=== PATIENT | male | born 1940 | race Caucasian/White ===

== ENCOUNTER 2017-07-20 16:11 | Emergency (ER) | payer MEDICARE, OTHER ==
--- OUTSIDE RECORDS SUMMARY | 2017-07-20 16:19 | XMS REPORT ---
:1940 External Reference #:[id number] Author Organization [facility] Address [address] [address] Phone [phone] Care Team Providers Name Role Phone Matthias Welch III, MD Primary Care Physician Unavailable Payers Type Date Identification Numbers Payment Provider Subscriber Medicare Primary Effective: Policy Number: Medicare Jose Juan Choe 2006 [id number] PayID: [id number] [address] [place] [address] [facility] Part B Effective: Policy Number: [facility] Jose Juan Choe 2006 [id number] Group Number: [id number] [address] PayID: [id number] [place] [address] Problems Date Description Provider Status Onset: 05/24/2011 Aortic valve disorder Brandon Willingham M.D. Active Onset: 05/24/2011 Benign essential hypertension Brandon Willingham M.D. Active Onset: 05/24/2011 Coronary arteriosclerosis Brandon Willingham M.D. Active Onset: 05/24/2011 Transplantation of heart valve Brandon Willingham M.D. Active Onset: 05/24/2011 Pure hypercholesterolemia Brandon Willingham M.D. Active Onset: 12/16/2011 Impaired fasting glycaemia Matthias Welch M.D. Active Onset: 01/10/2014 Peripheral vascular disease Brandon Willingham M.D. Active Onset: 04/14/2014 Malignant essential hypertension Brandon Willingham M.D. Active Onset: 04/14/2014 Mixed hyperlipidemia Brandon Willingham M.D. Active Onset: 12/22/2015 Essential hypertension Brandon Willingham M.D. Active Family History Date Family Member(s) Problem(s) Comments : (age Father due to Motor 65 Years) Vehicle Accident : (age Mother due to Post hx of [place]- from 62 Years) 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 : (age Paternal Grandfather due to [place] 70 Years) Social History Type Date Description Comments Marital Status Occupation Retired machinist helper Cigarette Use Former Cigarette Smoker 1 smoked for 25 1/2 Packs Daily years-quit 27 years ago ETOH Use 05/24/2013 Occasionally consumes alcohol Smoking Patient is a former smoker Daily Caffeine Consumes on average 2 cups of regular coffee per day Exercise Type/Frequency Exercises regularly Allergies, Adverse Reactions, Alerts Date Description Reaction Status Severity Comments 12/31/2007 NKDA active 12/25/2010 Bee Sting active Medications Medication Date Status Form Strength Qnty SIG Indications Ordering Provider Epipen 02/19 Active Device 0.3mg/0.3 3unit use one Matthias E. /2009 ML s time as deisy Welch M.D. Aspir-81 Active Tablets 81mg 90tab 1 by mouth Qutayb / DR peterson every day Dale Willingham M.D. Amiodarone HCL Active Tablets 200mg 1 by mouth Unknown /0000 every day Atorvastatin Active Tablets 40mg 1 by mouth Unknown Calcium /0000 every day Carvedilol Active Tablets 3.125mg 1 by mouth Unknown /0000 twice a day Colace Active Capsules 100mg 1 tab by Unknown /0000 mouth q 12 hrs as needed Coumadin Active Tablets 3mg 1 tablet po Unknown /0000 every PM as directed for DVT,Pad,CAD Lasix Active Tablets 40mg 1 by mouth Unknown /0000 every day Lisinopril Active Tablets 2.5mg 1 by mouth Unknown /0000 every day at bedtime for HTN Hold for SBP <100 Lovenox Active Solution 100mg/ml inject 85mg Unknown /0000 subcutaneou sly every 12 hours for DVT Plavix 00 Active Tablets 75mg 1 by mouth Unknown /0000 every day Tramadol HCL Active Tablets 50mg 1-2 tablets Unknown /0000 every 6 hours as needed Lisinopril 06/10 Hx Tablets 20mg 90tab 1 by mouth I10 [facility]. Lisinopril 05/19 Hx Tablets 5mg 360ta 2 by mouth 401.0 bs twice a day [facility] , M.D. Lisinopril 04/14 Hx Tablets 10mg 1 by mouth yb every day . [facility] Hydrochlorothiazid 01/08 Hx Tablets 25mg 90tab 1 po qd Qutaybeh . [facility].D. Hydrochlorothiazid 01/08 Hx Tablets 25mg 90tab 1 po qd [facility]beh s . [facility] , M.D. Hydrochlorothiazid 01/08 Hx Tablets 25mg 90tab 1 by mouth Qutaybeh s every day . [facility] , .D. Hydrochlorothiazid 10/15 Hx Tablets 25mg 90tab 1 po qd Qutaybeh s . [facility] , M.DGladys Valtrex 04/23 Hx Tablets 1gm 21tab 1 po q8h 782.1 Matthias Alvares /2011 Vilma Blank M.D. 01/08 Hydrochlorothiazid 06/01 Hx Tablets 25mg 90tab 1 po qd Qutaybeh s . [facility] , MGladysDGladys Chlorhexidine 01/30 Hx Solution 0.12% 1mont 15 ml Matthias Gordon pedro swish/jert Rebekah, - po until M.D. 02/01 bottle gone. Norvasc 12/26 Hx Tablets 10mg 90tab 1 po qd Qutaybeh s S. - Shannanydah 12/15 , Mateo Atenolol 03/30 Hx Tablets 50mg 1/2 po bid Matthias EGladys Vilma Welch M.D. 01/15 Centrum Silver 03/22 Hx Tablets 1 po qd Qutayb S. - Shannanydah 01/30 , Mateo Norvasc 03/22 Hx Tablets 5mg 90tab 2 po qd Qutayb s S. - Shannanydah 12/26 , Mateo Ramipril 12/29 Hx Capsules 10mg 90cap 1 po qd Matthias EGladys Vilma Blank M.D. 03/22 Diovan 12/22 Hx Tablets 160mg 90tab 1 po qd Matthias EGladys Vilma Blank M.D. 12/29 Diovan 09/26 Hx Tablets 80mg 90tab 1 po qd Matthias Alvares Vilma Blank M.D. 12/22 Simvastatin 12/30 Hx Tablets 20mg 90tab 1 by mouth s every day S. Vilma Campbellestherrandal 07/17 , Mateo HCTZ 12/30 Hx 25mg. 90uni 1 po qd Matthias Alvares Vilma Hankins M.D. 03/30 Atenolol 12/30 Hx Tablets 50mg 90tab 1 po qd Mattihas Alvares Vilma Blank M.D. 03/30 Diovan 12/30 Hx Tablets 80mg 90tab 1 PO qd Matthias EGladys Vilma Blank M.D. 12/30 Naprosyn 12/30 Hx Tablets 500mg 180ta 1 po bid Matthias Alvares bs prn Vilma Welch M.D. 01/30 Lisinopril 12/30 Hx Tablets 20mg 90tab 1 po qd Matthias Alvares Vilma Blank M.D. 09/26 Vit E Hx 1000mg one po qd Unknown /0000 - 01/30 Ferrous Sulfate Hx Tablets 324mg 90tab 1 po bid Unknown /0000 s for 1month - post op 06/01 Lasix 0000 Hx Tablets 40mg 30tab 1 po qd for Unknown /0000 s 10 days - 01/08-01/18 Metoprolol 00 Hx Tablets 25mg 180ta 1 by mouth Qutaybeh Tartrate /0000 bs twice a day S. - Tarsha 07/17 , Mateo /2016 K Dur 00 Hx 10Meq 1 qd for 10 Unknown /0000 days - 02/01 Vitamin C 00 Hx 500 mg qd Unknown /0000 for 1 month - 02/01 Tylenol Arthritis Hx Tablets 650mg 100ta 1 po qd Unknown Pain /0000 ER bs - 12/15 Amlodipine Hx Tablets 10mg 90tab 1 by mouth Qutaybeh Besylate /0000 s every day S. - Tarsha 07/17 , Mateo /2016 Lisinopril Hx Tablets 5mg 90tab 1 by mouth Qutaybeh /0000 s every day S. - (eveinjuan) Tarsha 04/14 , Mateo /2013 Cilostazol Hx 100mg 1 tablet Unknown /0000 twice a day - 07/17 Immunizations CPT Code Status Date Vaccine Lot # [id number] Given 05/09/2016 Fluzone High Dose 13251 Given 02/23/2015 Pneumococcal Conjugate Vaccine 13 Valent For [id number] Intramuscular Use 27552 Given 12/16/2011 Tdap - Tetanus/Diptheria/Acellular Pertussis [id number] 52758 Given 12/31/2007 Pneumonia Vaccine [id number] 12247 Given 11/22/1999 Pneumovax (History By Patient) [id number] 67044 Given 04/05/1999 Td (History By Patient) Vital Signs Date Vital Result Comment 07/18/2017 Height 66.25 inches 5'6.25" Heart Rate 66 /min BP Systolic Sitting 128 mmHg Rue reg cuff BP Diastolic Sitting 70 mmHg Rue reg cuff Respiratory Rate 17 /min 06/03/2017 Height 66.25 inches 5'6.25" Weight 204.00 lb Heart Rate 66 /min BP Systolic Sitting 154 mmHg BP Diastolic Sitting 68 mmHg Body Temperature 97.1 F O2 % BldC Oximetry 96 % BMI (Body Mass Index) 32.7 kg/m2 06/02/2017 Height 66.5 inches 5'6.50" Weight 205.00 lb Heart Rate 74 /min BP Systolic Sitting 186 mmHg BP Diastolic Sitting 72 mmHg BMI (Body Mass Index) 32.6 kg/m2 Ejection Fraction 50%-55% Levi 03/19/2017 01/06/2017 Height 66.5 inches 5'6.50" Weight 195.75 lb w/shoes Heart Rate 76 /min BP Systolic Sitting 158 mmHg LA lg cuff BP Diastolic Sitting 82 mmHg LA lg cuff BMI (Body Mass Index) 31.1 kg/m2 Ejection Fraction 55-60% Echo 01/24/16 12/22/2015 Height 66.5 inches 5'6.50" Weight 200.75 lb with shoes Heart Rate 68 /min BP Systolic 150 mmHg LA lrg cuff BP Diastolic 60 mmHg LA lrg cuff BMI (Body Mass Index) 31.9 kg/m2 Ejection Fraction 55% - 60% echo 12/12/14 03/07/2015 Height 66.5 inches 5'6.50" Weight 197.00 lb w/shoes Heart Rate 64 /min BP Systolic Sitting 186 mmHg LA reg cuff BP Diastolic Sitting 80 mmHg LA reg cuff BMI (Body Mass Index) 31.3 kg/m2 Ejection Fraction 55-60 echo 12/12/14 02/23/2015 Height 66.5 inches 5'6.50" Weight 194.00 lb Heart Rate 62 /min BP Systolic Sitting 136 mmHg BP Diastolic Sitting 78 mmHg Body Temperature 97.6 F O2 % BldC Oximetry 98 % BMI (Body Mass Index) 30.8 kg/m2 12/14/2014 Height 66.5 inches 5'6.50" Weight 201.00 lb with clothes Heart Rate 62 /min BP Systolic Sitting 134 mmHg LA< reg BP Diastolic Sitting 86 mmHg LA< reg BMI (Body Mass Index) 32.0 kg/m2 Ejection Fraction 55%-60% 12/12/14 echo, report pending 06/01/2014 Height 66.5 inches 5'6.50" Weight 200.25 lb Heart Rate 64 /min BP Systolic Sitting 126 mmHg BP Diastolic Sitting 64 mmHg Body Temperature 97.3 F BMI (Body Mass Index) 31.8 kg/m2 05/19/2014 Height 66.5 inches 5'6.50" Weight 200.00 lb Heart Rate 64 /min BP Systolic Sitting 158 mmHg LA reg cuff BP Diastolic Sitting 74 mmHg LA reg cuff BP Systolic Recheck 164 mmHg Home unit BP Diastolic Recheck 68 mmHg Home unit BMI (Body Mass Index) 31.8 kg/m2 04/14/2014 Height 66.5 inches 5'6.50" Weight 199.50 lb w/shoes Heart Rate 58 /min BP Systolic Sitting 192 mmHg LA reg cuff BP Diastolic Sitting 76 mmHg LA reg cuff Respiratory Rate 14 /min BMI (Body Mass Index) 31.7 kg/m2 01/10/2014 Height 66.5 inches 5'6.50" Weight 199.25 lb with sneakers Heart Rate 72 /min BP Systolic Sitting 168 mmHg BP Diastolic Sitting 78 mmHg BMI (Body Mass Index) 31.7 kg/m2 05/24/2013 Height 66.5 inches 5'6.50" Weight 197.50 lb Heart Rate 68 /min BP Systolic Sitting 144 mmHg 166/80 repeat BP Diastolic Sitting 66 mmHg 166/80 repeat BMI (Body Mass Index) 31.4 kg/m2 01/08/2013 Height 66.5 inches 5'6.50" Weight 197.00 lb Heart Rate 55 /min BP Systolic 138 mmHg BP Diastolic 68 mmHg BMI (Body Mass Index) 31.3 kg/m2 04/23/2012 Height 66.5 inches 5'6.50" Weight 194.00 lb Heart Rate 64 /min BP Systolic Sitting 166 mmHg BP Diastolic Sitting 82 mmHg BMI (Body Mass Index) 30.8 kg/m2 02/18/2012 Height 66.5 inches 5'6.50" Weight 195.12 lb Heart Rate 60 /min BP Systolic Sitting 148 mmHg His: 156/70 BP Diastolic Sitting 82 mmHg His: 156/70 BMI (Body Mass Index) 31.0 kg/m2 01/16/2012 Height 66.5 inches 5'6.50" Weight 195.50 lb Heart Rate 68 /min BP Systolic Sitting 150 mmHg BP Diastolic Sitting 80 mmHg BMI (Body Mass Index) 31.1 kg/m2 01/01/2012 Height 66.5 inches 5'6.50" Weight 197.00 lb Heart Rate 60 /min BP Systolic Sitting 156 mmHg BP Diastolic Sitting 76 mmHg BMI (Body Mass Index) 31.3 kg/m2 12/16/2011 Height 66.5 inches 5'6.50" Weight 197.00 lb Heart Rate 64 /min BP Systolic Sitting 156 mmHg 140/66 in rt arm BP Diastolic Sitting 78 mmHg 140/66 in rt arm BMI (Body Mass Index) 31.3 kg/m2 05/24/2011 Height 68 inches 5'8" Weight 193.00 lb Heart Rate 51 /min BP Systolic Sitting 160 mmHg BP Diastolic Sitting 80 mmHg BMI (Body Mass Index) 29.3 kg/m2 12/25/2010 Weight 199.00 lb Heart Rate 68 /min BP Systolic Sitting 156 mmHg BP Diastolic Sitting 78 mmHg 06/01/2010 Weight 203.00 lb Heart Rate 60 /min BP Systolic Sitting 160 mmHg BP Diastolic Sitting 82 mmHg 05/02/2010 Weight 196.00 lb Heart Rate 72 /min BP Systolic Sitting 150 mmHg BP Diastolic Sitting 78 mmHg 02/01/2010 Height 67 inches 5'7" Weight 195.00 lb Heart Rate 88 /min BP Systolic Sitting 140 mmHg BP Diastolic Sitting 78 mmHg BMI (Body Mass Index) 30.5 kg/m2 01/15/2010 Height 67 inches 5'7" Weight 198.00 lb BP Systolic 180 mmHg BP Diastolic 80 mmHg BMI (Body Mass Index) 31.0 kg/m2 12/26/2009 Weight 205.00 lb Heart Rate 56 /min BP Systolic 180 mmHg BP Diastolic 76 mmHg Respiratory Rate 16 /min 03/30/2009 Height 67 inches 5'7" Heart Rate 60 /min BP Systolic Sitting 210 mmHg BP Diastolic Sitting 94 mmHg 03/22/2009 Height 67 inches 5'7" Weight 202.00 lb Heart Rate 55 /min BP Systolic Sitting 160 mmHg L BP Diastolic Sitting 80 mmHg L BMI (Body Mass Index) 31.6 kg/m2 02/14/2009 Weight 202.00 lb Heart Rate 68 /min BP Systolic Sitting 160 mmHg BP Diastolic Sitting 70 mmHg 12/22/2008 Height 67 inches 5'7" Weight 208.00 lb Heart Rate 60 /min BP Systolic Sitting 162 mmHg BP Diastolic Sitting 80 mmHg BMI (Body Mass Index) 32.6 kg/m2 12/31/2007 Height 67 inches 5'7" Weight 206.00 lb Heart Rate 56 /min BP Systolic Sitting 156 mmHg BP Diastolic Sitting 80 mmHg BMI (Body Mass Index) 32.3 kg/m2 Results Test Date Test Result H/L Range Note Laboratory test finding 06/03/2017 Hemoglobin A1c 6.3 5-7 Lipid Profile (Trig/Chol/HDL) 05/26/2017 Triglycerides 132 mg/dL 1 Cholesterol 174 mg/dL 2 HDL Cholesterol 41.1 mg/dL 3 LDL Cholesterol 107 mg/dL 4 Comp Metabolic Panel 05/26/2017 Sodium 134 mmol/L 133-145 Chloride 100 mmol/L Low 101-111 Co2 Carbon Dioxide 29 mmol/L 22-32 Glucose 120 mg/dL High 70-100 Blood Urea Nitrogen 23 mg/dL 6-24 Creatinine 1.32 mg/dL High 0.67-1.17 BUN/Creatinine Ratio 17.4 8-20 Calcium 9.9 mg/dL 8.6-10.3 Total Protein 7.2 g/dL 6.4-8.9 Albumin 4.1 g/dL 3.2-5.2 Globulin 3.1 g/dL 2-4 Albumin/Globulin Ratio 1.3 1-3 Total Bilirubin 0.50 mg/dL 0.2-1.0 Alkaline Phosphatase 55 U/L 34-104 Alt 12 U/L 7-52 Ast 15 U/L 13-39 Egfr Non- 52.5 >60 Egfr 67.5 >60 5 Potassium 5.3 mmol/L High 3.5-5.0 Anion Gap 5 mmol/L 2-11 Basic Metabolic Panel 02/04/2017 Sodium 133 mmol/L 133-145 Potassium 4.4 mmol/L 3.5-5.0 Chloride 101 mmol/L 101-111 Co2 Carbon Dioxide 25 mmol/L 22-32 Anion Gap 7 mmol/L 2-11 Glucose 85 mg/dL 70-100 Blood Urea Nitrogen 22 mg/dL 6-24 Creatinine 1.22 mg/dL High 0.67-1.17 BUN/Creatinine Ratio 18.0 8-20 Calcium 9.7 mg/dL 8.6-10.3 Egfr Non- 57.4 >60 Egfr 73.9 >60 6 Comp Metabolic Panel 02/27/2015 Sodium 132 mmol/L Low 133-145 7 Potassium 4.5 mmol/L 3.5-5.0 7 Chloride 97 mmol/L Low 101-111 7 Co2 Carbon Dioxide 27 mmol/L 22-32 7 Anion Gap 8 mmol/L 2-11 7 Glucose 110 mg/dL High 70-100 7 Blood Urea Nitrogen 17 mg/dL 6-24 7 Creatinine 1.13 mg/dL 0.67-1.17 7 BUN/Creatinine Ratio 15.0 8-20 7 Calcium 9.4 mg/dL 8.6-10.3 7 Total Protein 7.3 g/dL 6.4-8.9 7 Albumin 4.3 g/dL 3.2-5.2 7 Globulin 3.0 g/dL 2-4 7 Albumin/Globulin Ratio 1.4 1-3 7 Total Bilirubin 0.60 mg/dL 0.2-1.0 7 Alkaline Phosphatase 50 U/L 34-104 7 Alt 14 U/L 7-52 7 Ast 19 U/L 13-39 7 Egfr Non- 63.1 >60 7 Egfr 81.1 >60 7, 8 Lipid Profile (Trig/Chol/HDL) 02/27/2015 Triglycerides 139 mg/dL 7, 9 Cholesterol 165 mg/dL 7, 10 HDL Cholesterol 46.2 mg/dL 7, 11 LDL Cholesterol 91 mg/dL 7, 12 Laboratory test 02/27/2015 Hemoglobin A1c 6.0 % Less than 6.0 7, 13 finding (Glyco HGB) Laboratory test 02/17/2015 Surgical Pathology SEE RESULT 14 finding BELOW Basic Metabolic 06/07/2014 Sodium 133 mmol/L 133-145 Panel Potassium 4.6 mmol/L 3.5-5.0 15 Chloride 100 mmol/L Low 101-111 Co2 Carbon Dioxide 25 mmol/L 22-32 Anion Gap 8 mmol/L 2-11 Glucose 96 mg/dL 70-100 Blood Urea Nitrogen 24 mg/dL 6-24 Creatinine 1.15 mg/dL 0.67-1.17 BUN/Creatinine Ratio 20.9 High 8-20 Calcium 9.5 mg/dL 8.6-10.3 Egfr Non- 62.0 >60 Egfr 79.7 >60 16 Laboratory test finding 06/01/2014 Hemoglobin A1c 5.7 5-7 Basic Metabolic Panel 04/22/2014 Sodium 135 mmol/L 133-145 17 Potassium 4.3 mmol/L 3.7-5.6 17 Chloride 101 mmol/L 101-111 17 Co2 Carbon Dioxide 29 mmol/L 22-32 17 Anion Gap 5 mmol/L 2-11 17 Glucose 114 mg/dL High 70-100 17 Blood Urea Nitrogen 22 mg/dL 6-24 17 Creatinine 1.02 mg/dL 0.67-1.17 17 BUN/Creatinine Ratio 21.6 High 8-20 17 Calcium 9.4 mg/dL 8.6-10.3 17 Egfr Non- 71.2 >60 17 Egfr 91.6 >60 17, 18 Laboratory test finding 04/22/2014 Creatine Kinase 83 U/L 10-223 17, 19 Lipid Profile (Trig/Chol/HDL) 04/22/2014 Triglycerides 140 mg/dL 17, 20 Cholesterol 182 mg/dL 17, 21 HDL Cholesterol 52.1 mg/dL 17, 22 LDL Cholesterol 102 mg/dL 17, 23 Laboratory test finding 05/24/2013 Hemoglobin A1c 6.0 5-7 Laboratory test finding 02/15/2013 Blood Urea Nitrogen 21 mg/dL 6-24 Creatinine 02/15/2013 Creatinine 1.10 mg/dL 0.50-1.40 Egfr Non- 65.4 >60 Egfr 84.2 >60 24 CBC With Manual Diff 01/11/2013 White Blood Count 7.1 10^3/uL 4.8-10.8 Red Blood Count 4.57 10^6/uL 4.0-5.4 Hemoglobin 15.0 g/dL 14.0-18.0 Hematocrit 42 % 42-52 Mean Corpuscular Volume 92 fL 80-94 Mean Corpuscular Hemoglobin 33 pg High 27-31 Mean Corpuscular HGB Conc 36 g/dL 31-36 Red Cell Distribution Width 14 % 10.5-15 Platelet Count 188 10^3/uL 150-450 Mean Platelet Volume 8 um3 7.4-10.4 Abs Neutrophils 2.9 10^3/uL 1.5-7.7 Abs Lymphocytes 1.5 10^3/uL 1.0-4.8 Abs Monocytes 0.6 10^3/uL 0-0.8 Abs Eosinophils 2.0 10^3/uL High 0-0.6 Abs Basophils 0.1 10^3/uL 0-0.2 Abs Nucleated RBC 0 10^3/uL Neutrophil % 45 % 38-83 Band % 1 % 0-8 Lymphocytes % 26 % 25-47 Monocytes % 8 % 0-13 Eosinophils % 20 % High 0-6 RBC Morphology Normal Normal Lipid Profile (Trig/Chol/HDL) 01/11/2013 Triglycerides 122 mg/dL 40-200 Cholesterol 136 mg/dL Less than 200 HDL Cholesterol 42 mg/dL 40-60 25 Cholesterol/HDL Ratio 3.2 Average 1-4.44 LDL Cholesterol 69.6 Less Than 100 26 Basic Metabolic Panel 01/11/2013 Sodium 133 mmol/L 133-145 Potassium 4.2 mmol/L 3.5-5.0 Chloride 101 mmol/L 101-111 Co2 Carbon Dioxide 25.0 mmol/L 22-32 Anion Gap 7.0 mmol/L 2-11 Glucose 121 mg/dL High 70-100 Blood Urea Nitrogen 19 mg/dL 6-24 Creatinine 1.00 mg/dL 0.50-1.40 BUN/Creatinine Ratio 19.0 8-20 Calcium 9.3 mg/dL 8.1-9.9 Egfr Non- 73.2 >60 Egfr 94.2 >60 27 Liver Function Panel 01/11/2013 Total Protein 6.8 g/dL 6.2-8.1 Albumin 3.8 g/dL 3.2-5.2 Globulin 3.0 g/dL 2-4 Albumin/Globulin Ratio 1.3 1-3 Total Bilirubin 0.8 mg/dL 0.4-1.5 Direct Bilirubin 0.1 mg/dL 0.1-0.5 Indirect Bilirubin 0.7 mg/dL 0.3-1.0 Alkaline Phosphatase 58 U/L 30-110 Alt 19 U/L 14-54 Ast 22 U/L 12-42 Laboratory test finding 01/11/2013 Creatine Kinase 92 U/L 0-200 28 Pathologist Review (SEE NOTE) 29 Basic Metabolic Panel 02/03/2012 Sodium 135 mmol/L 135-145 Potassium 4.1 mmol/L 3.5-5.0 Chloride 99 mmol/L Low 101-111 Co2 (Carbon Dioxide) 29.0 mmol/L 22-32 Anion Gap 7.0 mmol/L 2-11 30 Glucose 100 mg/dL 70-100 BUN 17 mg/dL 6-24 Creatinine 1.1 mg/dL 0.50-1.40 One Over Creatinine 0.90 BUN/Creatinine Ratio 15.5 8-20 Calcium 9.6 mg/dL 8.1-9.9 eGFR Non- 65.6 > 60 eGFR 84.4 > 60 31 Laboratory test finding 12/02/2011 Hemoglobin A1c 6.6 % High Less Than 6.0 32 Comp Metabolic Panel 12/02/2011 Sodium 135 mmol/L 135-145 Potassium 3.6 mmol/L 3.5-5.0 Chloride 101 mmol/L 101-111 Co2 (Carbon Dioxide) 28.0 mmol/L 22-32 Anion Gap 6.0 mmol/L 2-11 33 Glucose 96 mg/dL 70-100 BUN 15 mg/dL 6-24 Creatinine 0.9 mg/dL 0.50-1.40 One Over Creatinine 1.11 BUN/Creatinine Ratio 16.7 8-20 Calcium 9.1 mg/dL 8.1-9.9 Total Protein 7.1 GM/DL 6.2-8.1 Albumin 4.1 GM/DL 3.2-5.2 Globulin 3.0 GM/DL 2-4 Albumin/Globulin Ratio 1.4 1-3 Bilirubin Total 0.9 mg/dL 0.4-1.5 34 Alkaline Phosphatase 57 U/L 39-117 Alt (SGPT) 32 U/L 17-63 Ast (Sgot) 34 U/L 12-42 eGFR Non- 82.9 > 60 eGFR 106.7 > 60 35 Lipid Profile (Trig/Chol/HDL) 12/02/2011 Triglyceride 90 mg/dL 40-200 Cholesterol 154 mg/dL Less Than 200 36 High Density Lipoprotein 48 mg/dL 40-60 37 Cholesterol/HDL Ratio 3.21 AVERAGE 1-4.97 Low Density Lipoprotein 88 mg/dL Less Than 100 38 CBC Auto Diff 04/23/2011 White Blood Count 6.4 CUMM 4.8-10.8 Red Cell Count 4.60 CUMM 4.6-6.2 Hemoglobin 15.4 g/dL 14.0-18.0 Hematocrit 43 % 42-52 Mean Corpuscular Volume 93 um3 80-94 Mean Corpuscular Hemoglob 33 pg High 27-31 Mean Corpuscular HGB Cone 36 g/dL 32-36 Redcell Distribution WDTH 13 % 10.5-15 Platelet Count 212 CUMM 150-450 Mean Platelet Volume 8.2 um3 7.4-10.4 Gran % 54.1 % 38-83 Lymph % 26.3 % 25-47 Mononuclear % 14.2 % High 1-9 Eosinophil % 4.9 % 0-6 Basophil % 0.5 % 0-2 Abs Lymphs 1.7 1.0-4.8 Abs Mononuclear 0.9 High 0-0.8 Absolute Neutrophil Count 3.5 1.5-7.7 Abs Eosinophils 0.3 0-0.6 Abs Basophils 0 0-0.2 39 Basic Metabolic Panel 04/23/2011 Sodium 135 mmol/L 135-145 Potassium 4.3 mmol/L 3.5-5.0 Chloride 98 mmol/L Low 101-111 Co2 (Carbon Dioxide) 31.0 mmol/L 22-32 Anion Gap 6.0 mmol/L 2-11 40 Glucose 101 mg/dL High 70-100 BUN 16 mg/dL 6-24 Creatinine 1.0 mg/dL 0.50-1.40 One Over Creatinine 1.00 BUN/Creatinine Ratio 16.0 8-20 Calcium 9.6 mg/dL 8.1-9.9 eGFR Non- 73.5 > 60 eGFR 94.5 > 60 41 CBC Auto Diff 01/16/2011 White Blood Count 5.7 CUMM 4.8-10.8 Red Cell Count 4.66 CUMM 4.6-6.2 Hemoglobin 15.3 g/dL 14.0-18.0 Hematocrit 44 % 42-52 Mean Corpuscular Volume 95 um3 High 80-94 Mean Corpuscular Hemoglob 33 pg High 27-31 Mean Corpuscular HGB Cone 35 g/dL 32-36 Redcell Distribution WDTH 13 % 10.5-15 Platelet Count 228 CUMM 150-450 Mean Platelet Volume 8.4 um3 7.4-10.4 Gran % 51.8 % 38-83 Lymph % 31.7 % 25-47 Mononuclear % 10.2 % High 1-9 Eosinophil % 5.2 % 0-6 Basophil % 1.1 % 0-2 Abs Lymphs 1.8 1.0-4.8 Abs Mononuclear 0.6 0-0.8 Absolute Neutrophil Count 2.9 1.5-7.7 Abs Eosinophils 0.3 0-0.6 Abs Basophils 0.1 0-0.2 Basic Metabolic Panel 01/16/2011 Sodium 139 mmol/L 135-145 Potassium 3.8 mmol/L 3.5-5.0 Chloride 101 mmol/L 101-111 Co2 (Carbon Dioxide) 30.0 mmol/L 22-32 Anion Gap 8.0 mmol/L 2-11 42 Glucose 150 mg/dL High 70-100 BUN 13 mg/dL 6-24 Creatinine 1.00 mg/dL 0.50-1.40 One Over Creatinine 1.00 BUN/Creatinine Ratio 13.0 8-20 Calcium 10.0 mg/dL High 8.1-9.9 eGFR Non- 73.7 > 60 eGFR 94.7 > 60 43 CBC With Electronic Diff 05/10/2010 White Blood Count 6.2 CUMM 4.8-10.8 44 Red Cell Count 4.84 CUMM 4.6-6.2 44 Hemoglobin 15.0 g/dL 14.0-18.0 44 Hematocrit 43 % 42-52 44 Mean Corpuscular Volume 88 um3 80-94 44 Mean Corpuscular Hemoglob 31 pg 27-31 44 Mean Corpuscular HGB Cone 35 g/dL 32-36 44 Redcell Distribution WDTH 15 % 10.5-15 44 Platelet Count 240 CUMM 150-450 44 Mean Platelet Volume 7.4 um3 7.4-10.4 44 Gran % 57.4 % 38-83 44 Lymph % 28.9 % 25-47 44 Mononuclear % 8.8 % 1-9 44 Eosinophil % 4.1 % 0-6 44 Basophil % 0.8 % 0-2 44 Abs Lymphs 1.8 1.0-4.8 44 Abs Mononuclear 0.5 0-0.8 44 Absolute Neutrophil Count 3.6 1.5-7.7 44 Abs Eosinophils 0.3 0-0.6 44 Abs Basophils 0 0-0.2 44 Basic Metabolic Panel 05/10/2010 Sodium 138 mmol/L 135-145 44 Potassium 4.4 mmol/L 3.5-5.0 44 Chloride 102 mmol/L 101-111 44 Co2 (Carbon Dioxide) 27.0 mmol/L 22-32 44 Anion Gap 9.0 mmol/L 2-11 44, 45 Glucose 121 mg/dL High 70-100 44, 46 BUN 10 mg/dL 6-24 44 Creatinine 1.00 mg/dL 0.50-1.40 44 One Over Creatinine 1.00 44 BUN/Creatinine Ratio 10.0 8-20 44 Calcium 9.6 mg/dL 8.1-9.9 44 eGFR Non- 78.3 > 60 44 eGFR 94.7 > 60 44, 47 CBC With Electronic Diff 01/19/2010 White Blood Count 10.6 CUMM 4.8-10.8 Red Cell Count 3.81 CUMM Low 4.6-6.2 Hemoglobin 11.6 g/dL Low 14.0-18.0 Hematocrit 36 % Low 42-52 Mean Corpuscular Volume 94 um3 80-94 Mean Corpuscular Hemoglob 30 pg 27-31 Mean Corpuscular HGB Cone 32 g/dL 32-36 Redcell Distribution WDTH 13 % 10.5-15 Platelet Count 526 CUMM High 150-450 Mean Platelet Volume 6.5 um3 Low 7.4-10.4 Gran % 70.0 % 38-83 Lymph % 18.7 % Low 25-47 Mononuclear % 8.5 % 1-9 Eosinophil % 2.3 % 0-6 Basophil % 0.5 % 0-2 Abs Lymphs 2.0 1.0-4.8 Abs Mononuclear 0.9 High 0-0.8 Absolute Neutrophil Count 7.4 1.5-7.7 Abs Eosinophils 0.2 0-0.6 Abs Basophils 0.1 0-0.[address] Welch's Lab Panel 01/19/2010 TSH 2.13 MIU/ML 0.34-5.60 Comp Metabolic Panel 01/19/2010 Sodium 135 mmol/L 135-145 Potassium 5.4 mmol/L High 3.5-5.0 Chloride 100 mmol/L Low 101-111 Co2 (Carbon Dioxide) 28.0 mmol/L 22-32 Anion Gap 7.0 mmol/L 2-11 49 Glucose 107 mg/dL High 70-100 50 BUN 18 mg/dL 6-24 Creatinine 1.00 mg/dL 0.50-1.40 One Over Creatinine 1.00 BUN/Creatinine Ratio 18.0 8-20 Calcium 9.2 mg/dL 8.1-9.9 51 Total Protein 6.7 GM/DL 6.2-8.1 Albumin 3.3 GM/DL 3.2-5.2 Globulin 3.4 GM/DL 2-4 Albumin/Globulin Ratio 1.0 1-3 Bilirubin Total 0.6 mg/dL 0.4-1.5 52 Alkaline Phosphatase 88 U/L 39-117 Alt (SGPT) 54 U/L 17-63 Ast (Sgot) 38 U/L 12-42 eGFR Non- 78.3 > 60 eGFR 94.7 > 60 53 Lipid Profile (Trig/Chol/HDL) 01/19/2010 Triglyceride 139 mg/dL 40-200 Cholesterol 141 mg/dL Less Than 200 54 High Density Lipoprotein 38 mg/dL Low 40-60 55 Cholesterol/HDL Ratio 3.71 AVERAGE 1-4.97 Low Density Lipoprotein 75 mg/dL Less Than 100 56 Laboratory test finding 12/13/2008 TSH 1.75 MIU/ML 0.34-5.60 PSA,Diagnostic 0.97 NG/ML 0-4 57 Lipid Profile (Trig/Chol/HDL) 12/13/2008 Triglyceride 95 mg/dL 40-200 Cholesterol 164 mg/dL Less Than 200 58 High Density Lipoprotein 44 mg/dL 40-60 59 Cholesterol/HDL Ratio 3.73 AVERAGE 1-4.97 Low Density Lipoprotein 101 mg/dL High Less Than 100 60 Comp Metabolic Panel 12/13/2008 Sodium 137 mmol/L 135-145 Potassium 5.3 mmol/L High 3.5-5.0 Chloride 103 mmol/L 101-111 Co2 (Carbon Dioxide) 29.0 mmol/L 22-32 Anion Gap 5.0 mmol/L 2-11 61 Glucose 105 mg/dL High 70-100 62 BUN 19 mg/dL 6-24 Creatinine 1.20 mg/dL 0.50-1.40 One Over Creatinine 0.80 BUN/Creatinine Ratio 15.8 8-20 Calcium 9.5 mg/dL 8.1-9.9 63 Total Protein 6.7 GM/DL 6.2-8.1 Albumin 4.0 GM/DL 3.2-5.2 Globulin 2.7 GM/DL 2-4 Albumin/Globulin Ratio 1.5 1-3 Bilirubin Total 0.8 mg/dL 0.4-1.5 64 Alkaline Phosphatase 62 U/L 39-117 Alt (SGPT) 29 U/L 17-63 Ast (Sgot) 31 U/L 12-42 CBC With Electronic Diff 12/13/2008 White Blood Count 5.6 CUMM 4.8-10.8 Red Cell Count 4.21 CUMM Low 4.6-6.2 Hemoglobin 13.9 g/dL Low 14.0-18.0 Hematocrit 39 % Low 42-52 Mean Corpuscular Volume 93 um3 80-94 Mean Corpuscular Hemoglob 33 pg High 27-31 Mean Corpuscular HGB Cone 36 g/dL 32-36 Redcell Distribution WDTH 13 % 10.5-15 Platelet Count 241 CUMM 150-450 Mean Platelet Volume 7.5 um3 7.4-10.4 Gran % 58.9 % 38-83 Lymph % 24.5 % Low 25-47 Mononuclear % 12.8 % High 1-9 Eosinophil % 3.2 % 0-6 Basophil % 0.6 % 0-2 Abs Lymphs 1.4 1.0-4.8 Abs Mononuclear 0.7 0-0.8 Absolute Neutrophil Count 3.3 1.5-7.7 Abs Eosinophils 0.2 0-0.6 Abs Basophils 0 0-0.2 Lipid Profile (Trig/Chol/HDL) 02/02/2008 Triglyceride 185 mg/dL 40-200 Cholesterol 172 mg/dL Less Than 200 65 High Density Lipoprotein 38 mg/dL Low 40-60 66 Cholesterol/HDL Ratio 4.53 AVERAGE 1-4.97 Low Density Lipoprotein 97 mg/dL Less Than 100 67 Laboratory test finding 02/02/2008 Alt (SGPT) 22 U/L 17-63 Ast (Sgot) 23 U/L 12-42 1 Desirable: <150 Borderline High: 150-199 High: 200-499 Very High: >500 2 Desirable: <200 Borderline High: 200-239 High: >239 3 Low: <40 Desirable: 40-60 High: >60 4 Desirable: <100 Near Optimal: 100-129 Borderline High: 130-159 High: 160-189 Very High: >189 5 Because ethnic data is not always readily available, this report includes an eGFR for both -Americans and non- Americans. The National Kidney Disease Education Program (NKDEP) does not endorse the use of the MDRD equation for patients that are not between the ages of 18 and 70, are , have extremes of body size, muscle mass, or nutritional status, or are non- or non-. According to the National Kidney Foundation, irrespective of diagnosis, the stage of the disease is based on the level of kidney function: Stage Description GFR(mL/min/1.73 m(2)) 1 Kidney damage with normal or decreased GFR 90 2 Kidney damage with mild decrease in GFR 60-89 3 Moderate decrease in GFR 30-59 4 Severe decrease in GFR 15-29 5 Kidney failure <15 (or dialysis) 6 Because ethnic data is not always readily available, this report includes an eGFR for both -Americans and non- Americans. The National Kidney Disease Education Program (NKDEP) does not endorse the use of the MDRD equation for patients that are not between the ages of 18 and 70, are , have extremes of body size, muscle mass, or nutritional status, or are non- or non-. According to the National Kidney Foundation, irrespective of diagnosis, the stage of the disease is based on the level of kidney function: Stage Description GFR(mL/min/1.73 m(2)) 1 Kidney damage with normal or decreased GFR 90 2 Kidney damage with mild decrease in GFR 60-89 3 Moderate decrease in GFR 30-59 4 Severe decrease in GFR 15-29 5 Kidney failure <15 (or dialysis) 7 FASTING 10 HOUR 8 Because ethnic data is not always readily available, this report includes an eGFR for both -Americans and non- Americans. The National Kidney Disease Education Program (NKDEP) does not endorse the use of the MDRD equation for patients that are not between the ages of 18 and 70, are , have extremes of body size, muscle mass, or nutritional status, or are non- or non-. According to the National Kidney Foundation, irrespective of diagnosis, the stage of the disease is based on the level of kidney function: Stage Description GFR(mL/min/1.73 m(2)) 1 Kidney damage with normal or decreased GFR 90 2 Kidney damage with mild decrease in GFR 60-89 3 Moderate decrease in GFR 30-59 4 Severe decrease in GFR 15-29 5 Kidney failure <15 (or dialysis) 9 Desirable <150 Borderline high 150-199 High 200-499 Very High >500 10 Desirable <200 Borderline high 200-239 High >239 11 Low <40 Desirable: 40-60 High: >60 12 Desirable: <100 mg/dL Near Optimal: 100-129 mg/dL Borderline High: 130-159 mg/dL High: 160-189 mg/dL Very High: >189 mg/dL 13 Therapeutic target for the treatment of diabetes Mellitus patients is <7% HBA1C, and in selective patients <6.0%.Please refer to [place] [employer] Diabetic care guidelines for further information. 14 SEE RESULT BELOW Name: JOSE JUAN CHOE : [address]: Jez Damon MD Acct: [id number] Unit: [id number] AGE: 75 Location: ENDO Re02/17/15 SEX: M Status: REG REF SPEC: [id number] LISET: 02/17/15-[address] [facility] [address]: Jez Damon MD REQ: [id number] RECD: 02/17/15-8507 STATUS: PATTY ANTONIO DR: Matthias Welch III, MD _ ORDERED: LEVEL IV FINAL DIAGNOSIS Colon, cecum, biopsy: -- Tubular adenoma. -- No high grade dysplasia or malignancy. CLINICAL HISTORY No additional information provided POST-OPERATIVE DIAGNOSIS Screening colonoscopy to terminal ileum - cecal polyp snare, tics; 5 years GROSS DESCRIPTION The specimen is received in formalin labeled, Cecal Polyp, and consists of a 0.6 x 0.4 x 0.3 cm apodaca-pink polypoid soft tissue fragment, which is inked, bisected and submitted entirely in one cassette. Signed (signature on file) Paula Lee MD [id number] END OF REPORT * ML=Testing performed at Main Lab DEPARTMENT OF PATHOLOGY, [address] [place] [address] Humberto Lunsford M.D. Director [facility] # [id number] 15 Potassium reference range changed effective 05/29/14 16 Because ethnic data is not always readily available, this report includes an eGFR for both -Americans and non- Americans. The National Kidney Disease Education Program (NKDEP) does not endorse the use of the MDRD equation for patients that are not between the ages of 18 and 70, are , have extremes of body size, muscle mass, or nutritional status, or are non- or non-. According to the National Kidney Foundation, irrespective of diagnosis, the stage of the disease is based on the level of kidney function: Stage Description GFR(mL/min/1.73 m(2)) 1 Kidney damage with normal or decreased GFR 90 2 Kidney damage with mild decrease in GFR 60-89 3 Moderate decrease in GFR 30-59 4 Severe decrease in GFR 15-29 5 Kidney failure <15 (or dialysis) 17 PT IS FASTING 18 Because ethnic data is not always readily available, this report includes an eGFR for both -Americans and non- Americans. The National Kidney Disease Education Program (NKDEP) does not endorse the use of the MDRD equation for patients that are not between the ages of 18 and 70, are , have extremes of body size, muscle mass, or nutritional status, or are non- or non-. According to the National Kidney Foundation, irrespective of diagnosis, the stage of the disease is based on the level of kidney function: Stage Description GFR(mL/min/1.73 m(2)) 1 Kidney damage with normal or decreased GFR 90 2 Kidney damage with mild decrease in GFR 60-89 3 Moderate decrease in GFR 30-59 4 Severe decrease in GFR 15-29 5 Kidney failure <15 (or dialysis) 19 PT IS FASTING 20 Desirable <150 Borderline high 150-199 High 200-499 Very High >500 21 Desirable <200 Borderline high 200-239 High >239 22 Low <40 Desirable: 40-60 High: >60 23 Desirable <100 Near Optimal 100-129 Borderline high 130-159 High 160-189 Very High >189 24 Because ethnic data is not always readily available, this report includes an eGFR for both -Americans and non- Americans. The National Kidney Disease Education Program (NKDEP) does not endorse the use of the MDRD equation for patients that are not between the ages of 18 and 70, are , have extremes of body size, muscle mass, or nutritional status, or are non- or non-. According to the National Kidney Foundation, irrespective of diagnosis, the stage of the disease is based on the level of kidney function: Stage Description GFR(mL/min/1.73 m(2)) 1 Kidney damage with normal or decreased GFR 90 2 Kidney damage with mild decrease in GFR 60-89 3 Moderate decrease in GFR 30-59 4 Severe decrease in GFR 15-29 5 Kidney failure <15 (or dialysis) 25 HDL Interpretation: Undesirable: High Risk: Less than 40 mg/dL Desirable: Low Risk: Greater than 60 mg/dL 26 LDL Interpretation: Low Risk Optimal Level: LDL Less than 100 mg/dL Near or Above Optimal: LDL 100-129 mg/dL Borderline High Risk: LDL 130-159 mg/dL High Risk: LDL 160-189 mg/dL Very High Risk: LDL Greater than 189 mg/dL 27 Because ethnic data is not always readily available, this report includes an eGFR for both -Americans and non- Americans. The National Kidney Disease Education Program (NKDEP) does not endorse the use of the MDRD equation for patients that are not between the ages of 18 and 70, are , have extremes of body size, muscle mass, or nutritional status, or are non- or non-. According to the National Kidney Foundation, irrespective of diagnosis, the stage of the disease is based on the level of kidney function: Stage Description GFR(mL/min/1.73 m(2)) 1 Kidney damage with normal or decreased GFR 90 2 Kidney damage with mild decrease in GFR 60-89 3 Moderate decrease in GFR 30-59 4 Severe decrease in GFR 15-29 5 Kidney failure <15 (or dialysis) 28 FASTING Lab added 29 CBC and smear reviewed. Eosinophilia confirmed. May be allergy, drug or parasite related. REVIEWED BY HUMBERTO LUNSFORD MD 30 Anion gap measurement may be of limited value in the presence of any alkalosis, especially in a combined acid base disorder. . 31 Because ethnic data is not always readily available, this report includes an eGFR for both -Americans and non- Americans. The National Kidney Disease Education Program (NKDEP) does not endorse the use of the MDRD equation for patients that are not between the ages of 18 and 70, are , have extremes of body size, muscle mass, or nutritional status, or are non- or non-. According to the National Kidney Foundation, irrespective of diagnosis, the stage of the disease is based on the level of kidney function: Stage Description GFR(mL/min/1.73 m(2)) 1 Kidney damage with normal or decreased GFR 90 2 Kidney damage with mild decrease in GFR 60-89 3 Moderate decrease in GFR 30-59 4 Severe decrease in GFR 15-29 5 Kidney failure <15 (or dialysis) 32 THERAPEUTIC TARGET FOR THE TREATMENT OF DIABETES MELLITUS PATIENTS IS <7% HBA1C, AND IN SELECTIVE PATIENTS <6.0%. PLEASE REFER TO [place] [employer] DIABETIC CARE GUIDELINES FOR FURTHER INFORMATION. 33 Anion gap measurement may be of limited value in the presence of any alkalosis, especially in a combined acid base disorder. . 34 A metabolite of Naproxen, O-desmethylnaproxen, has been shown to interfere with the Jendrassik-Aleksey method for measuring total bilirubin. Samples from patients who have taken Naproxen have shown spurious elevation in total bilirubin levels. 35 Because ethnic data is not always readily available, this report includes an eGFR for both -Americans and non- Americans. The National Kidney Disease Education Program (NKDEP) does not endorse the use of the MDRD equation for patients that are not between the ages of 18 and 70, are , have extremes of body size, muscle mass, or nutritional status, or are non- or non-. According to the National Kidney Foundation, irrespective of diagnosis, the stage of the disease is based on the level of kidney function: Stage Description GFR(mL/min/1.73 m(2)) 1 Kidney damage with normal or decreased GFR 90 2 Kidney damage with mild decrease in GFR 60-89 3 Moderate decrease in GFR 30-59 4 Severe decrease in GFR 15-29 5 Kidney failure <15 (or dialysis) 36 CHOLESTEROL INTERPRETATION: Desirable: Less than 200 MG/DL Borderline-High Risk: 200-239 MG/DL High-Risk: 240 MG/DL and over 37 HDL INTERPRETATION: Undesirable: High Risk: Less than 40 MG/DL Desirable: Low Risk: Greater than 60 MG/DL 38 LDL INTERPRETATION: Low Risk Optimal Level: LDL Less than 100 MG/DL Near or Above Optimal: LDL 100-129 MG/DL Borderline High Risk: LDL 130-159 MG/DL High Risk: LDL 160-189 MG/DL Very High Risk: LDL Greater than 189 MG/DL 39 H H Check Failed 40 Anion gap measurement may be of limited value in the presence of any alkalosis, especially in a combined acid base disorder. . 41 Because ethnic data is not always readily available, this report includes an eGFR for both -Americans and non- Americans. The National Kidney Disease Education Program (NKDEP) does not endorse the use of the MDRD equation for patients that are not between the ages of 18 and 70, are , have extremes of body size, muscle mass, or nutritional status, or are non- or non-. According to the National Kidney Foundation, irrespective of diagnosis, the stage of the disease is based on the level of kidney function: Stage Description GFR(mL/min/1.73 m(2)) 1 Kidney damage with normal or decreased GFR 90 2 Kidney damage with mild decrease in GFR 60-89 3 Moderate decrease in GFR 30-59 4 Severe decrease in GFR 15-29 5 Kidney failure <15 (or dialysis) 42 Anion gap measurement may be of limited value in the presence of any alkalosis, especially in a combined acid base disorder. . 43 Because ethnic data is not always readily available, this report includes an eGFR for both -Americans and non- Americans. The National Kidney Disease Education Program (NKDEP) does not endorse the use of the MDRD equation for patients that are not between the ages of 18 and 70, are , have extremes of body size, muscle mass, or nutritional status, or are non- or non-. According to the National Kidney Foundation, irrespective of diagnosis, the stage of the disease is based on the level of kidney function: Stage Description GFR(mL/min/1.73 m(2)) 1 Kidney damage with normal or decreased GFR 90 2 Kidney damage with mild decrease in GFR 60-89 3 Moderate decrease in GFR 30-59 4 Severe decrease in GFR 15-29 5 Kidney failure <15 (or dialysis) 44 SAME DAY SURGERY 05-14-10 45 Anion gap measurement may be of limited value in the presence of any alkalosis, especially in a combined acid base disorder. . 46 Note change in reference range as of 03/17/08. The change was based on recommendations from the [place] [employer]. 47 Because ethnic data is not always readily available, this report includes an eGFR for both -Americans and non- Americans. The National Kidney Disease Education Program (NKDEP) does not endorse the use of the MDRD equation for patients that are not between the ages of 18 and 70, are , have extremes of body size, muscle mass, or nutritional status, or are non- or non-. According to the National Kidney Foundation, irrespective of diagnosis, the stage of the disease is based on the level of kidney function: Stage Description GFR(mL/min/1.73 m(2)) 1 Kidney damage with normal or decreased GFR 90 2 Kidney damage with mild decrease in GFR 60-89 3 Moderate decrease in GFR 30-59 4 Severe decrease in GFR 15-29 5 Kidney failure <15 (or dialysis) 48 Lymphopenia % 49 Anion gap measurement may be of limited value in the presence of any alkalosis, especially in a combined acid base disorder. . 50 Note change in reference range as of 03/17/08. The change was based on recommendations from the [place] [employer]. 51 Please note change in reference range effective 07 . 52 A metabolite of Naproxen, O-desmethylnaproxen, has been shown to interfere with the Jendrassik-Aleksey method for measuring total bilirubin. Samples from patients who have taken Naproxen have shown spurious elevation in total bilirubin levels. 53 Because ethnic data is not always readily available, this report includes an eGFR for both -Americans and non- Americans. The National Kidney Disease Education Program (NKDEP) does not endorse the use of the MDRD equation for patients that are not between the ages of 18 and 70, are , have extremes of body size, muscle mass, or nutritional status, or are non- or non-. According to the National Kidney Foundation, irrespective of diagnosis, the stage of the disease is based on the level of kidney function: Stage Description GFR(mL/min/1.73 m(2)) 1 Kidney damage with normal or decreased GFR 90 2 Kidney damage with mild decrease in GFR 60-89 3 Moderate decrease in GFR 30-59 4 Severe decrease in GFR 15-29 5 Kidney failure <15 (or dialysis) 54 CHOLESTEROL INTERPRETATION: Desirable: Less than 200 MG/DL Borderline-High Risk: 200-239 MG/DL High-Risk: 240 MG/DL and over 55 HDL INTERPRETATION: Undesirable: High Risk: Less than 40 MG/DL Desirable: Low Risk: Greater than 60 MG/DL 56 LDL INTERPRETATION: Low Risk Optimal Level: LDL Less than 100 MG/DL Near or Above Optimal: LDL 100-129 MG/DL Borderline High Risk: LDL 130-159 MG/DL High Risk: LDL 160-189 MG/DL Very High Risk: LDL Greater than 189 MG/DL 57 * SERUM LEVELS OF PSA MEASURED USING THE Creator Up ACCESS HYBRITECH IMMUNOASSAY SHOULD NOT BE INTERPRETED ABSOLUTE EVIDENCE OF THE PRESENCE OR ABSENCE OF DISEASE. THE PSA VALUE SHOULD BE USED IN CONJUNCTION WITH OTHER PERTINENT CLINICAL DIAGNOSTIC PROCEDURES. 58 CHOLESTEROL INTERPRETATION: Desirable: Less than 200 MG/DL Borderline-High Risk: 200-239 MG/DL High-Risk: 240 MG/DL and over 59 HDL INTERPRETATION: Undesirable: High Risk: Less than 40 MG/DL Desirable: Low Risk: Greater than 60 MG/DL 60 LDL INTERPRETATION: Low Risk Optimal Level: LDL Less than 100 MG/DL Near or Above Optimal: LDL 100-129 MG/DL Borderline High Risk: LDL 130-159 MG/DL High Risk: LDL 160-189 MG/DL Very High Risk: LDL Greater than 189 MG/DL 61 Anion gap measurement may be of limited value in the presence of any alkalosis, especially in a combined acid base disorder. . 62 Note change in reference range as of 03/17/08. The change was based on recommendations from the [place] [employer]. 63 Please note change in reference range effective 07 . 64 A metabolite of Naproxen, O-desmethylnaproxen, has been shown to interfere with the Jendrassik-Aleksey method for measuring total bilirubin. Samples from patients who have taken Naproxen have shown spurious elevation in total bilirubin levels. 65 CHOLESTEROL INTERPRETATION: Desirable: Less than 200 MG/DL Borderline-High Risk: 200-239 MG/DL High-Risk: 240 MG/DL and over 66 HDL INTERPRETATION: Undesirable: High Risk: Less than 40 MG/DL Desirable: Low Risk: Greater than 60 MG/DL 67 LDL INTERPRETATION: Low Risk Optimal Level: LDL Less than 100 MG/DL Near or Above Optimal: LDL 100-129 MG/DL Borderline High Risk: LDL 130-159 MG/DL High Risk: LDL 160-189 MG/DL Very High Risk: LDL Greater than 189 MG/DL Procedures Date CPT Code Description Status 07/18/2017 53104 EKG Tracing & Interpretation Completed 03/19/2017 49452 Color Flow Doppler/Interp & Reprt Completed 03/19/2017 00260 Pulse Wave/Continuous-Interp.RPT Completed 03/19/2017 02992 Echocardiography, Transesophageal, Real Time W/Image 2D Completed W/W/O M-M 02/04/2017 41373 ECHO Transthoracic, Real-Time 2D With Doppler And Color Completed Flow 01/06/2017 37613 EKG Tracing & Interpretation Completed 01/24/2016 91557 ECHO Transthoracic, Real-Time 2D With Doppler And Color Completed Flow 12/22/2015 87244 EKG Tracing & Interpretation Completed 02/17/2015 Colonoscopy Completed 12/14/2014 68595 EKG Tracing & Interpretation Completed 12/12/2014 13034 ECHO Transthoracic, Real-Time 2D With Doppler And Color Completed Flow 03/16/2014 02890 Echocardiography, Transesophageal, Real Time W/Image 2D Completed W/W/O M-M 03/16/2014 09830 Color Flow Doppler/Interp & Reprt Completed 03/16/2014 42885 Pulse Wave/Continuous-Interp.RPT Completed 01/10/2014 31455 EKG Tracing & Interpretation Completed 12/27/2013 21280 ECHO Transthoracic, Real-Time 2D With Doppler And Color Completed Flow 06/22/2013 82122 ECHO Transthoracic, Real-Time 2D With Doppler And Color Completed Flow 01/19/2013 51718 ECHO Transthoracic, Real-Time 2D With Doppler And Color Completed Flow 01/08/2013 05442 EKG Tracing & Interpretation Completed 01/01/2012 53229 EKG Tracing & Interpretation Completed 12/26/2011 83446 ECHO Transthoracic, Real-Time 2D With Doppler And Color Completed Flow 05/24/2011 52637 EKG Tracing & Interpretation Completed 05/16/2011 97286 ECHO Transthoracic, Real-Time 2D With Doppler And Color Completed Flow 12/25/2010 26289 EKG Tracing & Interpretation Completed 06/04/2010 83914 Echocardiogram Completed 06/04/2010 11412 ECHO Transthorasic Realtime 2D W Doppler & Color Completed Flow Hosp 06/01/2010 91689 EKG Tracing & Interpretation Completed 02/01/2010 40835 ECHO Stress Test Incl Perf Contiuous ekg Monitoring Completed W/Phys Superv 01/24/2010 28553 ECHO Transthoracic, Real-Time 2D With Doppler And Color Completed Flow 01/15/2010 22639 EKG Tracing & Interpretation Completed 12/26/2009 45982 EKG Tracing & Interpretation Completed 12/19/2009 48713 ECHO Transthoracic, Real-Time 2D With Doppler And Color Completed Flow 04/19/2009 68334 Color Flow Doppler/Interp & Reprt Completed 04/19/2009 42356 Pulse Wave/Continuous-Interp.RPT Completed 04/19/2009 51595 Echocardiography, Transesophageal, Real Time W/Image 2D Completed W/W/O M-M 03/24/2009 38026 Selective Coronary Angioplasty Completed 03/24/2009 45470 S/I/R Inj Proc Vent And Or Atrial Completed 03/24/2009 61077 Coronary Angiography Completed 03/24/2009 30840 Inj Proc LFT Vent/LFT Atrl Angio Completed 03/24/2009 62096 Com RT And LT Catheterization Completed 03/22/2009 30447 EKG Tracing & Interpretation Completed 01/30/2009 08073 ECHO Transthoracic, Real-Time 2D With Doppler And Color Completed Flow 12/30/2006 91617 Color Doppler Completed 12/30/2006 53361 Pulse Doppler & Continuous Wave Completed 12/30/2006 69455 Pulse Doppler & Continuous Wave Completed 12/30/2006 55130 Echocardiogram Completed 02/15/2005 Colonoscopy Completed Encounters Type Date Location Provider CPT E/M Dx Office Visit 07/18/2017 10:30a [facility] LINSEY Batista 14752 I73.9 I21.4 I82.491 I10 I48.91 R57.0 Office Visit 06/02/2017 10:00a [facility] Anntaybeh S. Tarsha, 96121 Z95.2 M.D. R60.9 I35.0 I73.9 E78.2 Office Visit 01/06/2017 4:00p [facility] Anntaybeh S. Tarsha, 93412 I35.0 M.D. R60.9 E78.2 I73.9 Office Visit 12/22/2015 10:40a [facility] Qutaybeh S. Maghanikky, 99982 I73.9 M.D. I35.0 I10 E78.2 I25.10 R53.83 R06.02 Office Visit 03/07/2015 9:30a [facility] LINSEY Batista 28237 443.9 424.1 401.1 272.2 Office Visit 12/14/2014 10:00a [facility] Qutaeh S. Tarsha, 51944 V42.2 M.D. 424.1 443.9 401.1 272.0 Office Visit 06/01/2014 2:00p [facility] Matthias Welch, 71589 401.1 - Jerry Galindo 272.0 443.9 424.1 790.21 Office Visit 05/19/2014 1:30p [facility] LINSEY Batista 06285 401.0 272.2 443.9 272.0 424.1 Office Visit 04/14/2014 4:00p [facility] Qutaybeh S. Maghaydah, 00708 424.1 M.D. 414.01 V42.2 401.0 272.2 Office Visit 03/16/2014 8:00a [facility], 35467 424.1 M.D. Office Visit 01/10/2014 10:00a [facility] 18598 424.1 M.D. 401.1 414.01 V42.2 443.9 Office Visit 01/08/2013 3:20p [facility], 32569 V42.2 M.D. 272.0 414.01 424.1 Office Visit 04/23/2012 1:20p [facility] Matthias Welch, 01210 782.1 - Jerry Galindo Office Visit 02/18/2012 10:30a [facility], 77489 401.1 [facility] N[facility] Office Visit 01/16/2012 10:30a [facility], 96054 401.1 [facility] N.P[facility] Office Visit 01/01/2012 3:20p [facility] 22406 401.1 [facility] Mateo Willingham 272.0 414.01 V42.2 424.1 Office Visit 05/24/2011 11:40a [facility], 27789 424.1 M.D. 401.1 414.01 V42.2 272.0 Office Visit 12/25/2010 2:20p [facility] 028[address] 424.1 M.D. 401.1 414.01 V42.2 Office Visit 06/01/2010 9:00a [facility], 81358 401.1 M.D. 424.1 272.0 414.01 Office Visit 05/02/2010 9:40a DO Not Use [facility] Welch, 23946 552.1 [place] Galindo 401.1 424.1 272.0 Office Visit 02/01/2010 11:20a DO Not Use [facility], 17615 424.1 [facility] M.D. 401.1 272.0 790.21 Office Visit 01/15/2010 3:40p [facility] Qutaybeh S. Tatiannaah, 14858 424.1 M.D. 414.01 401.1 V42.2 Office Visit 12/26/2009 9:00a [facility] Qutayb S. Shannanydah, 72111 424.1 M.D. 786.05 414.01 Office Visit 04/19/2009 7:00a [facility] Qutaybeh S. Shannanydah, 66744 414.01 M.D. 424.1 401.1 Office Visit 03/30/2009 10:40a [facility] Qutayb S. Shannanydah, 81075 424.1 M.D. 414.01 401.1 272.4 746.3 Office Visit 03/24/2009 7:00a [facility] Qutaybeh S. Tarsha, 51552 424.1 M.D. 414.01 401.1 272.4 Office Visit 03/22/2009 10:20a [facility] Qutayb S. Shannanydah, 40499 746.3 M.D. 401.1 272.0 424.0 785.2 Office Visit 02/14/2009 10:30a [facility], 88969 272.0 [facility] M.D. 746.3 401.1 Office Visit 12/22/2008 2:45p [facility], 61185 424.2 [facility] M.D. 424.0 433.10 459.81 Office Visit 12/31/2007 3:00p [facility], 34375 715.00 [facility] M.D. 272.0 401.1 V03.82 Plan of Care Future Appointment(s):08/26/2017 3:00 pm - Brandon Willingham M.D. at [facility]08/22/2017 2:00 pm - Ica Nuclear Schedule at [facility]07/29/2017 1:00 pm - Matthias Welch M.D. at [facility] - Azfftzrpp42/22/2017 - Carla Smith, PAI73.9 Peripheral vascular disease , jddbumnxalfZ68.4 Non-St elevation (Nstemi) myocardial infarctionNew Orders: EchocardiogramFollow up:Followup with Dr. Willingham in late 08/14I82.491 Acute embolism and thrombosis of deep vein of r low akgzqaC20 Essential (primary) ytjwggtcstfxS07.91 Unspecified atrial lspnqtzslfwvB33.0 Cardiogenic shock
--- OUTSIDE RECORDS SUMMARY | 2017-07-20 16:21 | XMS REPORT ---
:1940 External Reference #:[id number] Author Organization [facility] Address [address] [address] Phone [phone] Care Team Providers Name Role Phone Matthias Welch III, MD Primary Care Physician Unavailable Payers Type Date Identification Numbers Payment Provider Subscriber Medicare Primary Effective: Policy Number: Medicare Jose Juan Choe 2006 [id number] PayID: [id number] [address] [place] [address] [facility] Part B Effective: Policy Number: [facility] Jose Juan Choe 2006 [id number] Group Number: [id number] [address] PayID: [id number] [place] [address] Problems Date Description Provider Status Onset: 05/24/2011 [...] (age Mother due to Post hx of DC- from 62 Years) 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 , [facility]. Lisinopril 05/19 Hx Tablets 5mg 360ta 2 by mouth 401.0 bs twice a day [facility] 06/10 , M.D. Lisinopril 04/14 Hx Tablets 10mg 1 by mouth yb every day . [facility] .D. Hydrochlorothiazid 01/08 Hx Tablets 25mg 90tab 1 po qd Q[facility]beh . [facility] 01/08 , M.D. Hydrochlorothiazid 01/08 Hx Tablets 25mg 90tab 1 po qd Qutaybeh s . [facility] 01/08 , M.D. Hydrochlorothiazid 01/08 Hx Tablets 25mg 90tab 1 by mouth Qutaybeh s every day . [facility] 07/17 , .D. Hydrochlorothiazid 10/15 Hx Tablets 25mg 90tab 1 po qd Qutaybeh s . [facility] 01/08 , M.DGladys Valtrex 04/23 Hx Tablets 1gm 21tab 1 po q8h 782.1 Matthias Alvares /2011 Vilma Blank M.D. 01/08 Hydrochlorothiazid 06/01 Hx Tablets 25mg 90tab 1 po qd Qutaybeh s . [facility] 10/15 , MGladysDGladys Chlorhexidine 01/30 Hx Solution [...] Hx Tablets 80mg 90tab 1 po qd Mattihas Alvares Vilma Blank M.D. 12/22 Simvastatin 12/30 Hx Tablets 20mg 90tab 1 by mouth s every day S. Vilma Campbellestherrandal 07/17 , Mateo HCTZ 12/30 Hx 25mg. 90uni 1 po qd Matthias Alvares Vilma Hankins M.D. 03/30 Atenolol 12/30 Hx Tablets 50mg 90tab 1 po qd Matthias Alvares Vilma Blank M.D. 03/30 Diovan 12/30 [...] CPT Code Status Date Vaccine Lot # [id number] Given 05/09/2016 Fluzone High Dose 82999 Given 02/23/2015 Pneumococcal Conjugate Vaccine 13 Valent For [id number] Intramuscular Use 46615 Given 12/16/2011 Tdap - Tetanus/Diptheria/Acellular Pertussis [id number] 73659 Given 12/31/2007 Pneumonia Vaccine [id number] 50231 Given 11/22/1999 Pneumovax (History By Patient) 138iu 70682 Given 04/05/1999 Td (History By Patient) Vital [...] and in selective patients <6.0%.Please refer to [place] [employer] Diabetic care guidelines for further information. 14 SEE RESULT BELOW Name: JOSE JUAN CHOE : [address]: Jez Damon MD Acct: [id number] Unit: [id number] AGE: 75 Location: ENDO Re02/17/15 SEX: M Status: REG REF SPEC: [id number] LISET: 02/17/15-7 [facility] [address]: Jez Damon MD REQ: [id number] RECD: 02/17/15-5749 STATUS: PATTY ANTONIO DR: Matthias Welch III, [...] performed at Main Lab DEPARTMENT OF PATHOLOGY, [address] [place] [address] Humberto Lunsford M.D. Director [facility] # [id number] 15 Potassium reference range changed effective 05/29/14 [...] IN SELECTIVE PATIENTS <6.0%. PLEASE REFER TO [place] [employer] DIABETIC CARE GUIDELINES FOR FURTHER [...] change was based on recommendations from the [place] [employer]. 47 Because ethnic data is [...] change was based on recommendations from the [place] [employer]. 51 Please note change in [...] SERUM LEVELS OF PSA MEASURED USING THE [employer] ACCESS HYBRITECH IMMUNOASSAY SHOULD NOT BE INTERPRETED [...] change was based on recommendations from the [place] [employer]. 63 Please note change in [...] Procedures Date CPT Code Description Status 07/18/2017 17595 EKG Tracing & Interpretation Completed 03/19/2017 89559 Color Flow Doppler/Interp & Reprt Completed 03/19/2017 93607 Pulse Wave/Continuous-Interp.RPT Completed 03/19/2017 81836 Echocardiography, Transesophageal, Real Time W/Image 2D Completed W/W/O M-M 02/04/2017 77141 ECHO Transthoracic, Real-Time 2D With Doppler And Color Completed Flow 01/06/2017 48141 EKG Tracing & Interpretation Completed 01/24/2016 23975 ECHO Transthoracic, Real-Time 2D With Doppler And Color Completed Flow 12/22/2015 03404 EKG Tracing & Interpretation Completed 02/17/2015 Colonoscopy Completed 12/14/2014 17560 EKG Tracing & Interpretation Completed 12/12/2014 47579 ECHO Transthoracic, Real-Time 2D With Doppler And Color Completed Flow 03/16/2014 77688 Echocardiography, Transesophageal, Real Time W/Image 2D Completed W/W/O M-M 03/16/2014 16488 Color Flow Doppler/Interp & Reprt Completed 03/16/2014 06293 Pulse Wave/Continuous-Interp.RPT Completed 01/10/2014 38356 EKG Tracing & Interpretation Completed 12/27/2013 23489 ECHO Transthoracic, Real-Time 2D With Doppler And Color Completed Flow 06/22/2013 77419 ECHO Transthoracic, Real-Time 2D With Doppler And Color Completed Flow 01/19/2013 75613 ECHO Transthoracic, Real-Time 2D With Doppler And Color Completed Flow 01/08/2013 40389 EKG Tracing & Interpretation Completed 01/01/2012 57298 EKG Tracing & Interpretation Completed 12/26/2011 37970 ECHO Transthoracic, Real-Time 2D With Doppler And Color Completed Flow 05/24/2011 05628 EKG Tracing & Interpretation Completed 05/16/2011 20568 ECHO Transthoracic, Real-Time 2D With Doppler And Color Completed Flow 12/25/2010 39193 EKG Tracing & Interpretation Completed 06/04/2010 01380 Echocardiogram Completed 06/04/2010 91547 ECHO Transthorasic Realtime 2D W Doppler & Color Completed Flow Hosp 06/01/2010 16175 EKG Tracing & Interpretation Completed 02/01/2010 48125 ECHO Stress Test Incl Perf Contiuous ekg Monitoring Completed W/Phys Superv 01/24/2010 57389 ECHO Transthoracic, Real-Time 2D With Doppler And Color Completed Flow 01/15/2010 46105 EKG Tracing & Interpretation Completed 12/26/2009 87926 EKG Tracing & Interpretation Completed 12/19/2009 32816 ECHO Transthoracic, Real-Time 2D With Doppler And Color Completed Flow 04/19/2009 62656 Color Flow Doppler/Interp & Reprt Completed 04/19/2009 10090 Pulse Wave/Continuous-Interp.RPT Completed 04/19/2009 15854 Echocardiography, Transesophageal, Real Time W/Image 2D Completed W/W/O M-M 03/24/2009 15713 Selective Coronary Angioplasty Completed 03/24/2009 97023 S/I/R Inj Proc Vent And Or Atrial Completed 03/24/2009 99556 Coronary Angiography Completed 03/24/2009 71339 Inj Proc LFT Vent/LFT Atrl Angio Completed 03/24/2009 23809 Com RT And LT Catheterization Completed 03/22/2009 21452 EKG Tracing & Interpretation Completed 01/30/2009 67743 ECHO Transthoracic, Real-Time 2D With Doppler And Color Completed Flow 12/30/2006 89643 Color Doppler Completed 12/30/2006 57354 Pulse Doppler & Continuous Wave Completed 12/30/2006 99103 Pulse Doppler & Continuous Wave Completed 12/30/2006 84686 Echocardiogram Completed 02/15/2005 Colonoscopy Completed Encounters Type Date Location Provider CPT E/M Dx Office Visit 07/18/2017 10:30a [facility] LINSEY Batista 30151 I73.9 I21.4 I82.491 I10 I48.91 R57.0 Office Visit 06/02/2017 10:00a [facility] Anntaybeh S. Tarsha, 63510 Z95.2 M.D. R60.9 I35.0 I73.9 E78.2 Office Visit 01/06/2017 4:00p [facility] Anntaybeh S. Tarsha, 63885 I35.0 M.D. R60.9 E78.2 I73.9 Office Visit 12/22/2015 10:40a [facility] Qutaybeh S. Maghanikky, 44662 I73.9 M.D. I35.0 I10 E78.2 I25.10 R53.83 R06.02 Office Visit 03/07/2015 9:30a [facility] LINSEY Batista 91880 443.9 424.1 401.1 272.2 Office Visit 12/14/2014 10:00a [facility] Qutaeh S. Tarsha, 23614 V42.2 M.D. 424.1 443.9 401.1 272.0 Office Visit 06/01/2014 2:00p [facility] Matthias Welch, 03391 401.1 - Jerry Galindo 272.0 443.9 424.1 790.21 Office Visit 05/19/2014 1:30p [facility] LINSEY Batista 27391 401.0 272.2 443.9 272.0 424.1 Office Visit 04/14/2014 4:00p [facility] Qutaybeh S. Maghaydah, 95121 424.1 M.D. 414.01 V42.2 401.0 272.2 Office Visit 03/16/2014 8:00a [facility], 52338 424.1 M.D. Office Visit 01/10/2014 10:00a [facility] 50195 424.1 M.D. 401.1 414.01 V42.2 443.9 Office Visit 01/08/2013 3:20p [facility] S[facility], 10533 V42.2 M.D. 272.0 414.01 424.1 Office Visit 04/23/2012 1:20p [facility] Matthias Welch, 04391 782.1 - Jerry Galindo Office Visit 02/18/2012 10:30a [facility], 92651 401.1 [facility] Office Visit 01/16/2012 10:30a [facility], 77604 401.1 [facility] Office Visit 01/01/2012 3:20p [facility] 00088 401.1 [facility] Mateo Willingham 272.0 414.01 V42.2 424.1 Office Visit 05/24/2011 11:40a [facility] S[facility], 74788 424.1 M.D. 401.1 414.01 V42.2 272.0 Office Visit 12/25/2010 2:20p [facility] 62788 424.1 M.D. 401.1 414.01 V42.2 Office Visit 06/01/2010 9:00a [facility] 38674 401.1 M.D. 424.1 272.0 414.01 Office Visit 05/02/2010 9:40a DO Not Use [facility] Matthias Welch, 71004 552.1 [place] 401.1 424.1 272.0 Office Visit 02/01/2010 11:20a DO Not Use [facility], 93754 424.1 [facility] M.D. 401.1 272.0 790.21 Office Visit 01/15/2010 3:40p [facility] Qutayb S. Tatianna, 94320 424.1 M.D. 414.01 401.1 V42.2 Office Visit 12/26/2009 9:00a [facility] Qutayb S. Shannanydah, 47909 424.1 M.D. 786.05 414.01 Office Visit 04/19/2009 7:00a [facility] Qutayb S. Shannanyd, 79205 414.01 M.D. 424.1 401.1 Office Visit 03/30/2009 10:40a [facility] Qutayb S. Shannanyd, 44001 424.1 M.D. 414.01 401.1 272.4 746.3 Office Visit 03/24/2009 7:00a [facility] Qutayb S. Shannanyd, 54187 424.1 M.D. 414.01 401.1 272.4 Office Visit 03/22/2009 10:20a [facility] Qutayb S. Shannanyd, 54842 746.3 M.D. 401.1 272.0 424.0 785.2 Office Visit 02/14/2009 10:30a [facility], 55261 272.0 [facility] M.D. 746.3 401.1 Office Visit 12/22/2008 2:45p [facility], 87232 424.2 [facility] M.D. 424.0 433.10 459.81 Office Visit 12/31/2007 3:00p [facility], 41447 715.00 [facility] M.D. 272.0 401.1 V03.82 Plan of Care Future Appointment(s):08/22/2017 2:00 pm - Ica Nuclear Schedule at [facility]07/29/2017 1:00 pm - Matthias Welch M.D. at [facility] Internal Medicine - Iedhmcwge73/22/2017 - Carla Smith, PAI73.9 Peripheral vascular disease , iolyhcyxzakT72.4 Non-St elevation (Nstemi) myocardial infarctionNew Orders: EchocardiogramFollow up:Followup with Dr. Willingham in late 08/14I82.491 Acute embolism and thrombosis of deep vein of r low pvjreaX16 Essential (primary) lxqdhgwzachrJ41.91 Unspecified atrial fdxergsfcmqsV26.0 Cardiogenic shock
[2017-07-20] MEDS ORDERED: NS 0.9% 1000 ML* 1,000 ML IV ONE ×2 (16:30→17:27)
[2017-07-20 16:49] LABS: Hematocrit 24 % (42-52); Hemoglobin 8.3 g/dl (14.0-18.0); Mean Corpuscular HGB Conc 35 g/dl (31-36); Mean Corpuscular Hemoglobin 31 pg (27-31); Mean Corpuscular Volume 88 fL (80-94); Mean Platelet Volume 7 um3 (7.4-10.4); Red Blood Count 2.67 10^6/ul (4.0-5.4); Red Cell Distribution Width 15 % (10.5-15); White Blood Count 8.8 10^3/ul (3.5-10.8)
[2017-07-20 17:01] LABS: Albumin 3.2 g/dL (3.2-5.2); BUN/Creatinine Ratio 19.1 (8-20); Calcium 8.7 mg/dL (8.6-10.3); EGFR African American 55.2 (>60); EGFR Non-African American 42.9 (>60); Globulin 3.6 g/dL (2-4); Potassium 4.7 mmol/L (3.5-5.0); Total Bilirubin 0.5 mg/dL (0.2-1.0); Total Protein 6.8 g/dL (6.4-8.9); Troponin I 0.02 ng/mL (<0.04)
[2017-07-20] MEDS ORDERED: Phytonadione INJ (Adult)* 10 MG/ML 1 ML AMP IV ONE (17:03)
[2017-07-20] MEDS ORDERED: Iodixanol* (CONTRAST) 320 MG/ML 100 ML SDV IV ONE (17:05)
--- NOTE | 2017-07-20 17:40 | RAD ---
Indication: Hematoma from femoral iliac surgery. Contrast: Administered 100.0 ml of VISAPAQUE 320 mg/ml CTA of the abdominal aorta and pelvis was performed after IV contrast administration. Coronal and sagittal reconstructed images were obtained. There is an atherosclerotic aorta noted. No aneurysmal dilatation is noted. Common iliac arteries are unremarkable. No aneurysmal dilatation is noted. There is large subcutaneous hematoma and infiltration of fat along the right flank. No drainable collection is noted. Liver is normal in size. No focal lesions or intrahepatic ductal dilatation is noted. Spleen is normal in size. No adrenal masses are noted. The kidneys demonstrate symmetric nephrograms without focal lesions. No retroperitoneal lymphadenopathy is noted. The colon is filled with stool. The urinary bladder is collapsed. Stack catheter is in place. IMPRESSION: Diffuse soft tissue swelling in the subcutaneous tissue in the right flank. Atherosclerotic aorta without evidence of aneurysmal dilatation. No retroperitoneal hematoma is identified.
--- NOTE | 2017-07-20 18:19 | RAD ---
Indication: Hypotension. Single frontal view of the chest performed at 1655 hours was reviewed. Comparison is made with previous exam dated January 26, 2010. No mediastinal shift is noted. Heart is of normal size and configuration. Lung parr appear clear. Patient status post transsternal thoracotomy. IMPRESSION: NO ACTIVE CARDIOPULMONARY DISEASE IS NOTED.
[2017-07-20 19:12] VITALS: BP 106/47
--- NOTE | 2017-07-20 19:13 | ED ---
Josee Liu Abhishek, scribed for Shyam Gayle MD on 07/20/17 at 1626 . Abdominal Pain/Male - HPI Summary HPI Summary: This patient is a 77 year old M presenting to [facility] accompanied by with a chief complaint of right sided abd pain since 2300 yesterday. No pain currently in other areas of his body except abd. Previous pain in his legs since yesterday but has resolved today. Patient states edema due to tripping like 200 times. The patient rates the pain 0/10 in severity. Symptoms aggravated by nothing. Symptoms alleviated by nothing. Patient reports being ambulatory and as well as epistaxis. Patient denies Pain in his legs, dizziness, lightheadedness, and skin diaphoresis, vomiting and CASTRO. - History of Current Complaint Stated Complaint: ABD PAIN Hx Obtained From: Patient Onset/Duration: Gradual Onset Timing: Constant Location: Other - Right side Aggravating Factor(s): Movement Alleviating Factor(s): Nothing Associated Signs And Symptoms: Positive: Other - Negative CASTRO. Negative: Diaphoresis, Dizzy, Vomiting - Risk Factors Cardiac Risk Factors: Prior [place], CAD - Allergies/Home Medications Allergies/Adverse Reactions: Allergies Allergy/AdvReac Type Severity Reaction Status Date / Time Bee Venom Allergy Unknown Verified 07/20/17 16:49 Reaction Details Home Medications: Home Medications Amiodarone HCl 200 mg PO DAILY 07/20/17 [History Confirmed 07/20/17] Aspirin [Aspirin 81 MG TAB] 81 mg PO DAILY 07/20/17 [History Confirmed 07/20/17] Atorvastatin* [Lipitor*] 40 mg PO QPM 07/20/17 [History Confirmed 07/20/17] Carvedilol [Coreg] 3.125 mg PO BID 07/20/17 [History Confirmed 07/20/17] Clopidogrel Bisulfate [Plavix] 75 mg PO DAILY 07/20/17 [History Confirmed ] Docusate Sodium [Colace] 100 mg PO Q12HR 07/20/17 [History Confirmed 07/20/17] Enoxaparin Sodium [Lovenox] 85 mg SC Q12HR 07/20/17 [History Confirmed 07/20/17] Furosemide [Lasix] 40 mg PO DAILY 07/20/17 [History Confirmed 07/20/17] Lisinopril [Lisinopril 2.5 MG-] 2.5 mg PO BEDTIME 07/20/17 [History Confirmed ] Tramadol HCl [Ultram] 50 mg PO Q6HR 07/20/17 [History Confirmed 07/20/17] PMH/Surg Hx/FS Hx/Imm Hx Cardiovascular History: Reports: Hx Congestive Heart Failure, Hx Hypertension, Hx Myocardial Infarction, Other Cardiovascular Problems/Disorders - aortic v. replacement GI History: Denies: Hx Cirrhosis Musculoskeletal History: Reports: Other Musculoskeletal History - osteo- arthritis - Cancer History Cancer Type, Location and Year: bladder Hx Chemotherapy: Yes - Surgical History Surgery Procedure, Year, and Place: aorta v. replacement, appendectomy, bilat. inguinal hernia repairs Infectious Disease History: Denies: Traveled Outside the [place] in Last 30 Days Review of Systems Negative: Skin Diaphoresis Eyes: Negative Positive: Epistaxis Cardiovascular: Negative Respiratory: Negative Positive: Abdominal Pain - right sided Genitourinary: Negative Musculoskeletal: Other - ambulatory Positive: Other - Negative leg pain Skin: Negative Neurological: Other - Negative dizziness, lightheadedness Negative: Headache Psychological: Normal All Other Systems Reviewed And Are Negative: Yes Physical Exam - Summary Physical Exam Summary: Constitutional: Well-developed, Well-nourished, Alert. (-) Distressed Skin: Warm, Dry HENT: Normocephalic; Atraumatic Eyes: Conjunctiva normal Neck: Musculoskeletal ROM normal neck. (-) JVD, (-) Stridor, (-) Tracheal deviation Cardio: Rhythm regular, rate normal, Heart sounds normal; Intact distal pulses; The pedal pulses are 2+ and symmetric. Radial pulses are 2+ and symmetric. (-) Murmur Pulmonary/Chest wall: Effort normal. (-) Respiratory distress, (-) Wheezes, (-) Rales Abd: Right CVA tenderness Musculoskeletal: Trace edema in his feet 2+ pedal bilaterally, 20 cm by 10 cm area of ecchymosis indurated over the right lower abd Extending into the right flank. Tender palpation, no palpable hernia Lymph: (-) Cervical adenopathy Neuro: Alert, Oriented x3 Psych: Mood and affect Normal Triage Information Reviewed: Yes Vital Signs On Initial Exam: Initial Vitals Temp Pulse Resp BP Pulse Ox 36.6 C 73 16 114/56 98 07/20/17 16:15 07/20/17 16:15 07/20/17 16:15 07/20/17 16:15 07/20/17 16:15 Vital Signs Reviewed: Yes Diagnostics - Vital Signs Vital Signs Temp Pulse Resp BP Pulse Ox 07/20/17 18:20 85 18 91/74 100 07/20/17 18:19 86 19 82/46 100 07/20/17 18:10 82 18 89/49 100 07/20/17 18:00 79 16 104/46 99 07/20/17 17:50 79 16 94/36 100 07/20/17 17:43 78 18 105/45 100 07/20/17 17:30 14 102/34 07/20/17 17:27 16 98/37 07/20/17 17:20 65 16 127/67 100 07/20/17 17:10 68 16 89/61 98 07/20/17 17:00 72 18 99/37 100 07/20/17 16:42 74 17 93/40 97 07/20/17 16:35 69 15 107/36 97 07/20/17 16:21 72 14 97 07/20/17 16:15 36.6 C 73 16 114/56 98 - Laboratory Lab Results: Lab Results 07/20/17 07/20/17 07/20/17 Range/Units 16:30 16:30 16:30 WBC 8.8 (3.5-10.8) 10^3/ul RBC 2.67 L (4.0-5.4) 10^6/ul Hgb 8.3 L (14.0-18.0) g/dl Hct 24 L (42-52) % MCV 88 (80-94) fL MCH 31 (27-31) pg MCHC 35 (31-36) g/dl RDW 15 (10.5-15) % Plt Count 301 (150-450) 10^3/ul MPV 7 L (7.4-10.4) um3 Neut % (Auto) 84.7 H (38-83) % Lymph % (Auto) 10.2 L (25-47) % [place]to[place] % (Auto) 4.2 (1-9) % Eos % (Auto) 0.4 (0-6) % Baso % (Auto) 0.5 (0-2) % Absolute Neuts (auto) 7.5 (1.5-7.7) 10^3/ul Absolute Lymphs (auto) 0.9 L (1.0-4.8) 10^3/ul Absolute Monos (auto) 0.4 (0-0.8) 10^3/ul Absolute Eos (auto) 0 (0-0.6) 10^3/ul Absolute Basos (auto) 0 (0-0.2) 10^3/ul Absolute Nucleated RBC 0 10^3/ul Nucleated RBC % 0 INR (Anticoag Therapy) 2.32 H (0.77-1.02) APTT 42.0 H (26.0-36.3) seconds Sodium 127 L (133-145) mmol/L Potassium 4.7 (3.5-5.0) mmol/L Chloride 95 L (101-111) mmol/L Carbon Dioxide 26 (22-32) mmol/L Anion Gap 6 (2-11) mmol/L BUN 30 H (6-24) mg/dL Creatinine 1.57 H (0.67-1.17) mg/dL Est GFR ( Amer) 55.2 (>60) Est GFR (Non-Af Amer) 42.9 (>60) BUN/Creatinine Ratio 19.1 (8-20) Glucose 227 H (70-100) mg/dL Lactic Acid (0.5-2.0) mmol/L Calcium 8.7 (8.6-10.3) mg/dL Total Bilirubin 0.50 (0.2-1.0) mg/dL AST 19 (13-39) U/L ALT 20 (7-52) U/L Alkaline Phosphatase 69 (34-104) U/L Troponin I 0.02 (<0.04) ng/mL Total Protein 6.8 (6.4-8.9) g/dL Albumin 3.2 (3.2-5.2) g/dL Globulin 3.6 (2-4) g/dL Albumin/Globulin Ratio 0.9 L (1-3) Blood Type Antibody Screen Crossmatch 07/20/17 07/20/17 Range/Units 16:30 16:30 WBC (3.5-10.8) 10^3/ul RBC (4.0-5.4) 10^6/ul Hgb (14.0-18.0) g/dl Hct (42-52) % MCV (80-94) fL MCH (27-31) pg MCHC (31-36) g/dl RDW (10.5-15) % Plt Count (150-450) 10^3/ul MPV (7.4-10.4) um3 Neut % (Auto) (38-83) % Lymph % (Auto) (25-47) % [place] % (Auto) (1-9) % Eos % (Auto) (0-6) % Baso % (Auto) (0-2) % Absolute Neuts (auto) (1.5-7.7) 10^3/ul Absolute Lymphs (auto) (1.0-4.8) 10^3/ul Absolute Monos (auto) (0-0.8) 10^3/ul Absolute Eos (auto) (0-0.6) 10^3/ul Absolute Basos (auto) (0-0.2) 10^3/ul Absolute Nucleated RBC 10^3/ul Nucleated RBC % INR (Anticoag Therapy) (0.77-1.02) APTT (26.0-36.3) seconds Sodium (133-145) mmol/L Potassium (3.5-5.0) mmol/L Chloride (101-111) mmol/L Carbon Dioxide (22-32) mmol/L Anion Gap (2-11) mmol/L BUN (6-24) mg/dL Creatinine (0.67-1.17) mg/dL Est GFR ( Amer) (>60) Est GFR (Non-Af Amer) (>60) BUN/Creatinine Ratio (8-20) Glucose (70-100) mg/dL Lactic Acid 2.2 H* (0.5-2.0) mmol/L Calcium (8.6-10.3) mg/dL Total Bilirubin (0.2-1.0) mg/dL AST (13-39) U/L ALT (7-52) U/L Alkaline Phosphatase (34-104) U/L Troponin I (<0.04) ng/mL Total Protein (6.4-8.9) g/dL Albumin (3.2-5.2) g/dL Globulin (2-4) g/dL Albumin/Globulin Ratio (1-3) Blood Type A Positive Antibody Screen Negative Crossmatch See Detail Result Diagrams: 07/20/17 16:30 07/20/17 16:30 Lab Statement: Any lab studies that have been ordered have been reviewed, and results considered in the medical decision making process. - CT CT A/P CT Interpretation Completed By: Radiologist - CT A/P reveals Diffuse soft tissue swelling in the subcutaneous tissue in the right flank. Atherosclerotic aorta without evidence of aneurysmal dilatation. No retroperitoneal hematoma is identified. ED physician has reviewed this radiology report. - EKG 1640 EKG Rhythm: Sinus Rhythm - 74 bpm EKG Interpretation: An EKG at 1640 reveals negative STEMI Re-Evaluation - Re-Evaluation First Eval Re-Evaluation Time: 18:00 Change: Improved - pressure stabilizing Second Eval Re-Evaluation Time: 18:45 Comment: responding well to levophed, PICC going in Abdominal Pain Fem Course/Dx - Course Course Of Treatment: This patient is a 77 year old M presenting to [facility] accompanied by with a chief complaint of right sided abd pain since 2300 yesterday. No pain currently in other areas of his body except abd. Previous pain in his legs since yesterday but has resolved today. Patient states edema due to tripping like 200 times. Patient reports being ambulatory and as well as epistaxis. Patient denies pain in his legs, dizziness, lightheadedness, skin diaphoresis, vomiting and CASTRO. CT A/P reveals Diffuse soft tissue swelling in the subcutaneous tissue in the right flank. Atherosclerotic aorta without evidence of aneurysmal dilatation. No retroperitoneal hematoma is identified. ED physician has reviewed this radiology report. An EKG at 1640 reveals Sinus rhythm with 74 BPM and negative STEMI. We discussed patient care with Dr. Dailey at 1750. She understands that we packed fresh plasma, red blood cells, and platelets for the patient. We also paged the patents examiner at 1755. The Patient will be admitted to the [facility] Dx will be hypovolemic shock, and subcutaneous hematoma. Dr. Nixon consuted Tawanda Kenney and they collectivelly recommended transfer for potential interventional radiology and vasculat surgery for green field filter or arterial embolization. Reversal of coumadin in setting of acute blood loss/shock and active DVT - Diagnoses Provider Diagnoses: Hypovolemic shock, Subcutaneous hematoma - Provider Notifications Discussed Care Of Patient With: Berna Dailey - She understands that we packed fresh plasma, red blood cells, and platelets for the patient. Time Discussed With Above Provider: 17:50 Instructed by Provider To: Admit As Inpatient - Critical Care Time Critical Care Time: 75-104 min Discharge - Discharge Plan Condition: Stable Disposition: TRANS HIGHER LVL OF CARE FAC Referrals: Matthias Welch MD [Primary Care Provider] - The documentation as recorded by the Josee frank Abhishek accurately reflects the service I personally performed and the decisions made by me, Shyam Gayle MD.
--- NOTE | 2017-07-20 19:29 | RAD ---
Indication: Line insertion. Single frontal view of the chest performed at 1913 hours was reviewed. Comparison is made with previous exam dated July 20, 2017. Patient is status post tracer thoracotomy. Interstitial edema consistent with vascular congestion. The PICC line is coiled in the region of the left subclavian vein. IMPRESSION: PICC LINE IS COILED IN THE LEFT SUBCLAVIAN VEIN REGION.
--- NOTE | 2017-07-21 02:17 | CONS ---
CC: Dr. Welch; Dr. Garland, Dr. Willingham * CONSULTATION REPORT: DATE OF CONSULT: 07/20/17 - EMERGENCY DEPT REQUESTING PHYSICIAN FOR CONSULT: Dr. Gayle. ATTENDING PHYSICIAN WHILE IN THE HOSPITAL: Berna Dailey MD (report dictated by Bhupendra Kenney NP). PRIMARY CARE PROVIDER: Dr. Welch. REASON FOR CONSULT: Evaluation for admission. HISTORY OF PRESENT ILLNESS: Mr. Castellon is a 77-year-old male patient rather complex history on 06/26 to 07/08/17 he was admitted to [facility]. On the , he was undergoing an elective left femoral stent placement and iliac stent placement and left lower extremity endarterectomy. Post left femoral endarterectomy and left iliac stenting, he was noted to be having chest pain. He was found to have an MO and he was taken for LAD drug-eluting stent and he also develops cardiogenic shock and also was diagnosed with a DVT. He was on Coumadin, Plavix, and aspirin. He was transferred to [facility] for rehabilitation purposes. He had been doing rehab there. It was noted couple of days ago on the that his INR was subtherapeutic and he was bridged with Lovenox due to the DVT. Unfortunately last night, he started feeling weak, just kind of drowsy, may be was having a viral illness presumably at [facility]. The phone calls received today by myself that the patient was having a significant abdominal discomfort. He was tender and his blood pressures were in the 80s systolic. I instructed the nursing staff at [facility] to emergently transfer him to [facility] for evaluation. He was evaluated here and was noted that he was bleeding. He had a large subcutaneous hematoma. He appeared to be hypovolemic shock and we were asked to evaluate for admission. He denies any chest pain. He feels awake. He says he feels a little tired. He denies having any chest discomfort and denies any shortness of breath and he is complaining of abdominal discomfort. PAST MEDICAL HISTORY: Significant for: 1. DVT. 2. Peripheral vascular disease. 3. NSTEMI. 4. AFib. 5. Cardiogenic shock. 6. Bladder cancer. 7. Hypertension. 8. Hyperlipidemia. PAST SURGICAL HISTORY: He has had a left femoral endarterectomy and left iliac stent. 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 MEDICATIONS: Home meds include: 1. Lovenox 100 mg subcu b.i.d. 2. Coumadin 3 mg a day. 3. Tramadol 50 mg every 6 hours as needed for pain. 4. Amiodarone 50 mg p.o. daily. 5. Lasix 40 mg daily. 6. Lisinopril 2.5 mg p.o. q.h.s. 7. Coreg 3.125 mg p.o. b.i.d. 8. Lipitor 40 mg p.o. q.h.s. 9. Plavix 75 mg daily. 10. Aspirin 81 mg daily. ALLERGIES TO MEDICATIONS: Include BEE VENOM. FAMILY HISTORY: His mother had a CAD. Father had of an MVA. SOCIAL HISTORY: He does not smoke, does not drink. Surrogate decision maker is his . REVIEW OF SYSTEMS: There is no documented fever. He denied having any significant weight change. There was no double vision. He denies having any ear discharge. There was no rhinorrhea, no sore throat, no thyroid enlargement. Denied having any chest pain. No orthopnea. No nocturnal dyspnea. There was abdominal pain per my HPI. No nausea, no vomiting, no dysuria, no frequency. There was no seizure. No loss of consciousness. No pruritus and no skin ulcerations. Review of 14 systems completed, all others negative. PHYSICAL EXAM: When he presented to the ED, he had a blood pressure 114/57. Since being here in the ED, his blood pressure is now down to the 90 systolic. His heart rate when he came in was in the 70s, it is now 85 to 90. His respiratory rate was 18, his O2 sat was 100%, his temperature was 98. General: At this time, Mr. Castellon is a 77-year-old male patient. He is sitting in the ED stretcher. He does not appear to be in any acute distress. HEENT: Head: Atraumatic, normocephalic. Eyes: EOMs are intact. Sclerae anicteric. They were pale. Neck was supple. Throat: Oral mucosa appears to be dry. No oropharyngeal erythema. Heart: Sounds S1, S2. He does have a grade 2 to 3 murmur in the aortic listening area. Lungs: Clear to auscultation. Abdomen was distended. It was tender in the right lower quadrant. There was a significant subcutaneous hematoma noted and there was quite tender to palpitation. Bowel sounds present. Extremities: Pulses were 2+ throughout. He does have swelling noted in the right lower extremity. Distal CSM checks were intact. He does have an abrasion and wound noted to the right lower extremity. Extremity, he had 5/5 strength. Neurologically, he is awake, he is alert, he is oriented x3. No gross focal deficits. His skin was intact. DIAGNOSTIC STUDIES/LAB DATA: His labs revealed WBC of 8.8, RBC of 2.67, hemoglobin 8.3, hematocrit 24, platelet count of 301. His INR was 2.32 today and his PTT was 42. His sodium is 127, potassium of 4.7, chloride of 95, bicarb 26, BUN 30, creatinine 1.57, glucose of 227, lactate of 2.2, calcium 8.1. Total bili 0.5, AST 19, ALT 20, alk phos 60, troponin 0.02. He had an abdomen and pelvis CTA, impression: Diffuse soft tissue swelling in the subcutaneous tissue in the right flank, atherosclerotic aorta without evidence of aneurysmal dilatation. No retroperitoneal hematoma was identified. Chest x-ray showed no active cardiopulmonary disease. He did have an EKG obtained today, which showed a sinus rhythm rate of 74, no ST elevation or T- wave inversion. Old medical records were reviewed. ASSESSMENT AND PLAN: Mr. Castellon is a 77-year-old male patient with a complex medical history coming into the ED today with complaints of abdominal discomfort , found to have a large subcutaneous hematoma, concern for most likely the area of the bleed. We were asked to evaluate for admission. My recommendation at this point actually are for transfer for the subcutaneous hematoma. I discussed the case with Dr. Nixon, the aquatics director. The patient is going to need an IVC filter with the active DVT. In addition to this, he just had 2 stents placed that were drug-eluting that we need to hold his antiplatelet therapy, which the stents could become clotted and we could have re-in-stent thrombosis. However, he is bleeding and hypotensive and in shock in front of me , so I would recommend treating those shock and getting him transferred back to [facility] where there is IR available. We may be able to do embolization of the bleeding area. They will also be able to do an IVC filter , which he will need and he will need to stop anticoagulation and they will need to touch base with their IR up there for the antiplatelet therapy. I did touch base with Dr. Nixon, who recommend transfer. At this point, I would recommend continuing blood products, FFP, hydration, central access and stabilization for transfer. I did discuss the case with my attending, Dr. Dailey and Dr. Nixon. I discussed with Dr. Dailey; she is in agreement. The patient will be transferred. We are working on getting accepting physician at this point. BHUPENDRA KENNEY NP [id number]/[facility] #: [id number] MTDDiogo
== END 2017-07-20 19:31 | disposition short-term general hospital (02) ==
LOC: ED 16:11
DX: R57.1 Hypovolemic shock (principal); M79.81 Nontraumatic hematoma of soft tissue; I70.0 Atherosclerosis of aorta
CPT/HCPCS: 36415; 36430; 71010; 74174; 80053; 83605; 84484; 85025; 85610; 85730; 86850; 86900; 86901; 86922; 86927; 93005; 96361; 96365; 99285; J3430; P9017; P9040; Q9967

== ENCOUNTER 2017-09-22 14:45 | Inpatient (IN) | payer MEDICARE, OTHER ==
--- OUTSIDE RECORDS SUMMARY | 2017-09-22 15:20 | XMS REPORT ---
:1940 External Reference #:[id number] Author Organization [facility] Address [address] [address] Phone [phone] Care Team Providers Name Role Phone Matthias Welch III, MD Primary Care Physician Unavailable Payers Type Date Identification Numbers Payment Provider Subscriber Medicare Primary Effective: Policy Number: Medicare Jose Juan Choe 2005 [id number] PayID: [id number] [address] [place] [address] Medigap Part B Effective: Policy Number: [facility] Jose Juan Chaparro 2006 [id number] Choe Group Number: [id number] [address] PayID: [id number] T[place] Levi [phone] Medigap Part B PayID: [id number] [facility] Jose Juan Chaparro [address] [place] [address] Problems Date Description Provider Status Onset: 05/24/2011 [...] (age Mother due to Post hx of GA- from 62 Years) 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 : (age Paternal Grandfather due to GA 70 Years) Social History Type Date Description Comments Marital Status Lives With Spouse Occupation Retired wood machinist Cigarette Use Former Cigarette Smoker 1 1/2 smoked for 25 years-quit 27 Packs Daily years ago ETOH Use Denies alcohol use Smoking Patient is a former smoker Recreational Drug Use Denies Drug Use Daily Caffeine Consumes on average 2 cups of regular coffee per day Exercise Type/Frequency Exercises regularly Allergies, Adverse Reactions, Alerts Date Description Reaction Status Severity Comments 12/31/2007 NKDA active 12/25/2010 Bee Sting active Medications Medication Date Status Form Strength Qnty SIG Indications Ordering Provider Colcrys 08/25 Active Tablets 0.6mg 3tabs take 2 tabs Matthias E. /2017 by mouth on , day then Mateo 1 tab 1hour later Epipen 02/19 Active Device 0.3mg/0.3 3unit use one Matthias E. ML s time as deisy Welch M.D. Amiodarone HCL Active Tablets 200mg 90tab 1 by mouth Qutaybeh / s every day Dale Willingham M.D. Atorvastatin Active Tablets 40mg 90tab 1 by mouth Matthias E. Calcium / s every day Mateo Welch Colace Active Capsules 100mg 1 tab by Unknown / mouth q 12 hrs as needed Coumadin Active Tablets 4mg 90tab 1 tablet by Qutaybeh / s mouth every S. at night as Tarsha olivas M.D. for dvt,pad,cad Lasix Active Tablets 20mg 90tab 1 by mouth Qutaybeh / s every day Dale Willingham M.D. Plavix Active Tablets 75mg 90tab 1 by mouth Qutaybeh / s every day Dale Willingham M.D. Tramadol HCL Active Tablets 50mg 1-2 tablets Unknown every 6 hours as needed Acetaminophen ER Active Tablets 650mg 1 tab by Unknown ER mouth q4 hours as needed pain Metoprolol Active Tablets 100mg 90tab 1 by mouth Qutaybeh Succinate ER ER 24HR s every day Dale Willingham M.D. Pantoprazole Active Tablets 40mg 90tab 1 by mouth Qutaybeh Sodium DR s every day Dale Willingham M.D. Vitamin D-400 Active Tablets 400Unit 1 by mouth Unknown every day Prednisone 08/25 Hx Tablets 20mg 7tabs take once Matthias daily Vilma Welch M.D. 09/10 Lisinopril 06/10 Hx Tablets 20mg 90tab 1 by mouth I10 s daily SGladys Willingham 07/17 Mateo Lisinopril 05/19 Hx Tablets 5mg 360ta 2 by mouth 401.0 bs twice a day Dale Willingham 06/10 Mateo Lisinopril 04/14 Hx Tablets 10mg 1 by mouth Qutaybeh every day Dale Willingham 05/19 Mateo Hydrochlorothiazid 01/08 Hx Tablets 25mg 90tab 1 po qd Qutaybeh s Dale Willingham 01/08 Mateo Hydrochlorothiazid 01/08 Hx Tablets 25mg 90tab 1 po qd Qutaybeh s Dale Willingham 01/08 Mateo Hydrochlorothiazid 01/08 Hx Tablets 25mg 90tab 1 by mouth Qutaybeh s every day S. - Maghaydah 07/17 , M.DGladys Hydrochlorothiazid 10/15 Hx Tablets 25mg 90tab 1 po qd [facility] , M.DGladys Valtrex 04/23 Hx Tablets 1gm 21tab 1 po q8h 782.1 Matthias Alvares Vilma Blank M.D. 01/08 Hydrochlorothiazid 06/01 Hx Tablets 25mg 90tab 1 po qd Qutaybeh s S. - Maghaydah 10/15 , M.DGladys Chlorhexidine 01/30 Hx Solution 0.12% 1mont 15 ml Matthias Alvares Gluc pedro regina/mick Welch - po until M.DGladys 02/01 bottle gone. Norvasc 12/26 Hx Tablets 10mg 90tab 1 po qd [facility] Mateo Atenolol 03/30 Hx Tablets 50mg 1/2 po bid Matthias Alvares Vilma Welch M.D. 01/15 Centrum Silver 03/22 Hx Tablets 1 po qd [facility] Mateo Norvasc 03/22 Hx Tablets 5mg 90tab 2 po qd [facility] . [facility] Mateo Ramipril 12/29 Hx Capsules 10mg 90cap 1 po qd Matthias Alvares Vilma Blank M.D. 03/22 Diovan 12/22 Hx Tablets 160mg 90tab 1 po qd Matthias Alvares Vilma Blank M.D. 12/29 Diovan 09/26 Hx Tablets 80mg 90tab 1 po qd Matthias Alvares Vilma Blank M.D. 12/22 Simvastatin 12/30 Hx Tablets 20mg 90tab 1 by mouth tayb s every day [facility] , MShemar HCTZ 12/30 Hx 25mg. 90uni 1 po qd Matthias Alvares Vilma Hankins M.D. 03/30 Atenolol 12/30 Hx Tablets 50mg 90tab 1 po qd Matthias Alvares Vilma Blank M.D. 03/30 Diovan 12/30 Hx Tablets 80mg 90tab 1 PO qd Matthias Alvares Vilma Blank M.D. 12/30 Naprosyn 12/30 Hx Tablets 500mg 180ta 1 po bid Matthias Alvares bs prn Vilma Welch M.D. 01/30 Lisinopril 12/30 Hx Tablets 20mg 90tab 1 po qd Matthias Alvares Vilma Blank M.D. 09/26 Vit E Hx 1000mg one po qd Unknown /0000 - 01/30 Aspir-81 Hx Tablets 81mg 90tab 1 by mouth Qutaybeh /0000 DR s every day Dale Willingham 08/25 Mateo /2017 Ferrous Sulfate Hx Tablets 324mg 90tab 1 po bid Unknown / s for 1month - post op 06/01 Lasix Hx Tablets 40mg 30tab 1 po qd for Unknown /0000 s 10 days - 01/08-01/18 Metoprolol Hx Tablets 25mg 180ta 1 by mouth Qutaybeh Tartrate /0000 bs twice a day Dale Willingham 07/17 Mateo /2016 K Dur Hx 10Meq 1 qd for 10 Unknown /0000 days - 02/01 Vitamin C Hx 500 mg qd Unknown /0000 for 1 month - 02/01 Tylenol Arthritis Hx Tablets 650mg 100ta 1 po qd Unknown Pain /0000 ER bs - 12/15 Amlodipine Hx Tablets 10mg 90tab 1 by mouth Qutaybeh Besylate /0000 s every day Dale Willingham 07/17 Mateo /2016 Lisinopril Hx Tablets 5mg 90tab 1 by mouth Qutaybeh /0000 s every day Dale Willingham (eveing) 09/18 Mateo /2013 Cilostazol Hx 100mg 1 tablet Unknown /0000 twice a day - 07/17 Carvedilol Hx Tablets 3.125mg 180ta 1 by mouth Qutaybeh /0000 bs twice a day Dale Willingham 09/05 , Mateo Lisinopril Hx Tablets 2.5mg 1 by mouth Unknown /0000 every day - at bedtime 08/13 for HTN /2017 Hold for SBP <100 Lovenox Hx Solution 100mg/ml inject 85mg Unknown /0000 subcutaneou - sly every 08/13 12 hours /2017 for DVT Immunizations CPT Code Status Date Vaccine Lot # [id number] Given 05/09/2016 Fluzone High Dose [id number] Given 02/23/2015 Pneumococcal Conjugate Vaccine 13 Valent For [id number] Intramuscular Use 09041 Given 12/16/2011 Tdap - Tetanus/Diptheria/Acellular Pertussis [id number] 21104 Given 12/31/2007 Pneumonia Vaccine [id number] 28827 Given 11/22/1999 Pneumovax (History By Patient) [id number] 45737 Given 04/05/1999 Td (History By Patient) Vital Signs Date Vital Result Comment 09/11/2017 Height 67 inches 5'7" Weight 186.25 lb Heart Rate 76 /min BP Systolic 158 mmHg Ra< reg BP Diastolic 78 mmHg Ra< reg BP Systolic Sitting 168 mmHg LA< reg BP Diastolic Sitting 78 mmHg LA< reg O2 % BldC Oximetry 97 % room air BMI (Body Mass Index) 29.2 kg/m2 Ejection Fraction 50%-55% 08/22/17 echo 08/26/2017 Height 67 inches 5'7" Weight 187.75 lb Heart Rate 68 /min BP Systolic Sitting 138 mmHg LA< reg BP Diastolic Sitting 68 mmHg LA< reg BMI (Body Mass Index) 29.4 kg/m2 Ejection Fraction 50%-55% 08/22/17 echo 08/13/2017 Weight 180.00 lb Heart Rate 60 /min BP Systolic Sitting 128 mmHg BP Diastolic Sitting 72 mmHg Body Temperature 94.0 F O2 % BldC Oximetry 95 % 07/18/2017 Height 66.25 inches 5'6.25" Weight 185.00 lb unable to stand, 185LBS Heart Rate 66 /min BP Systolic Sitting 128 mmHg Rue reg cuff BP Diastolic Sitting 70 mmHg Rue reg cuff Respiratory Rate 17 /min BMI (Body Mass Index) 29.6 kg/m2 Ejection Fraction 40-45% 07/13 [facility] Echo 06/03/2017 Height 66.25 inches 5'6.25" Weight 204.00 [...] Test Date Test Result H/L Range Note Inr/Protime 09/11/2017 Inr 3.18 High 0.77-1.02 1 Comp Metabolic Panel 07/20/2017 Sodium 127 mmol/L Low 133-145 Potassium 4.7 mmol/L 3.5-5.0 Chloride 95 mmol/L Low 101-111 Co2 Carbon Dioxide 26 mmol/L 22-32 Anion Gap 6 mmol/L 2-11 Glucose 227 mg/dL High 70-100 Blood Urea Nitrogen 30 mg/dL High 6-24 Creatinine 1.57 mg/dL High 0.67-1.17 BUN/Creatinine Ratio 19.1 8-20 Calcium 8.7 mg/dL 8.6-10.3 Total Protein 6.8 g/dL 6.4-8.9 Albumin 3.2 g/dL 3.2-5.2 Globulin 3.6 g/dL 2-4 Albumin/Globulin Ratio 0.9 Low 1-3 Total Bilirubin 0.50 mg/dL 0.2-1.0 Alkaline Phosphatase 69 U/L 34-104 Alt 20 U/L 7-52 Ast 19 U/L 13-39 Egfr Non- 42.9 >60 Egfr 55.2 >60 2 Inr/Protime 07/20/2017 Inr 2.32 High 0.77-1.02 3 Laboratory test finding 07/20/2017 Partial Thrombo Time 42.0 seconds High 26.0-36.3 PTT Lactic Acid 2.2 mmol/L High 0.5-2.0 4 Laboratory test finding 07/20/2017 Troponin-I (TnI) 0.02 ng/mL <0.04 CBC Auto Diff 07/20/2017 White Blood Count 8.8 10^3/uL 3.5-10.8 Red Blood Count 2.67 10^6/uL Low 4.0-5.4 Hemoglobin 8.3 g/dL Low 14.0-18.0 Hematocrit 24 % Low 42-52 Mean Corpuscular Volume 88 fL 80-94 Mean Corpuscular Hemoglobin 31 pg 27-31 Mean Corpuscular HGB Conc 35 g/dL 31-36 Red Cell Distribution Width 15 % 10.5-15 Platelet Count 301 10^3/uL 150-450 Mean Platelet Volume 7 um3 Low 7.4-10.4 Abs Neutrophils 7.5 10^3/uL 1.5-7.7 Abs Lymphocytes 0.9 10^3/uL Low 1.0-4.8 Abs Monocytes 0.4 10^3/uL 0-0.8 Abs Eosinophils 0 10^3/uL 0-0.6 Abs Basophils 0 10^3/uL 0-0.2 Abs Nucleated RBC 0 10^3/uL Granulocyte % 84.7 % High 38-83 Lymphocyte % 10.2 % Low 25-47 Monocyte % 4.2 % 1-9 Eosinophil % 0.4 % 0-6 Basophil % 0.5 % 0-2 Nucleated Red Blood Cells % 0 Laboratory test finding 06/03/2017 Hemoglobin A1c 6.3 5-7 Lipid Profile (Trig/Chol/HDL) 05/26/2017 Triglycerides 132 mg/dL 5 Cholesterol 174 mg/dL 6 HDL Cholesterol 41.1 mg/dL 7 LDL Cholesterol 107 mg/dL 8 Comp Metabolic Panel 05/26/2017 Sodium 134 mmol/L [...] Egfr Non- 52.5 >60 Egfr 67.5 >60 9 Potassium 5.3 mmol/L High 3.5-5.0 Anion Gap [...] Egfr Non- 57.4 >60 Egfr 73.9 >60 10 Comp Metabolic Panel 02/27/2015 Sodium 132 mmol/L Low 133-145 11 Potassium 4.5 mmol/L 3.5-5.0 11 Chloride 97 mmol/L Low 101-111 11 Co2 Carbon Dioxide 27 mmol/L 22-32 11 Anion Gap 8 mmol/L 2-11 11 Glucose 110 mg/dL High 70-100 11 Blood Urea Nitrogen 17 mg/dL 6-24 11 Creatinine 1.13 mg/dL 0.67-1.17 11 BUN/Creatinine Ratio 15.0 8-20 11 Calcium 9.4 mg/dL 8.6-10.3 11 Total Protein 7.3 g/dL 6.4-8.9 11 Albumin 4.3 g/dL 3.2-5.2 11 Globulin 3.0 g/dL 2-4 11 Albumin/Globulin Ratio 1.4 1-3 11 Total Bilirubin 0.60 mg/dL 0.2-1.0 11 Alkaline Phosphatase 50 U/L 34-104 11 Alt 14 U/L 7-52 11 Ast 19 U/L 13-39 11 Egfr Non- 63.1 >60 11 Egfr 81.1 >60 11, 12 Lipid Profile (Trig/Chol/HDL) 02/27/2015 Triglycerides 139 mg/dL 11, 13 Cholesterol 165 mg/dL 11, 14 HDL Cholesterol 46.2 mg/dL 11, 15 LDL Cholesterol 91 mg/dL 11, 16 Laboratory test 02/27/2015 Hemoglobin A1c 6.0 % Less than 11, 17 finding (Glyco HGB) 6.0 Laboratory test 02/17/2015 Surgical Pathology SEE RESULT 18 finding BELOW Basic Metabolic 06/07/2014 Sodium 133 mmol/L 133-145 Panel Potassium 4.6 mmol/L 3.5-5.0 19 Chloride 100 mmol/L Low 101-111 Co2 Carbon Dioxide 25 mmol/L 22-32 Anion Gap 8 mmol/L 2-11 Glucose 96 mg/dL 70-100 Blood Urea Nitrogen 24 mg/dL 6-24 Creatinine 1.15 mg/dL 0.67-1.17 BUN/Creatinine Ratio 20.9 High 8-20 Calcium 9.5 mg/dL 8.6-10.3 Egfr Non- 62.0 >60 Egfr 79.7 >60 20 Laboratory test finding 06/01/2014 Hemoglobin A1c 5.7 5-7 Basic Metabolic Panel 04/22/2014 Sodium 135 mmol/L 133-145 21 Potassium 4.3 mmol/L 3.7-5.6 21 Chloride 101 mmol/L 101-111 21 Co2 Carbon Dioxide 29 mmol/L 22-32 21 Anion Gap 5 mmol/L 2-11 21 Glucose 114 mg/dL High 70-100 21 Blood Urea Nitrogen 22 mg/dL 6-24 21 Creatinine 1.02 mg/dL 0.67-1.17 21 BUN/Creatinine Ratio 21.6 High 8-20 21 Calcium 9.4 mg/dL 8.6-10.3 21 Egfr Non- 71.2 >60 21 Egfr 91.6 >60 21, 22 Laboratory test finding 04/22/2014 Creatine Kinase 83 U/L 10-223 21, 23 Lipid Profile (Trig/Chol/HDL) 04/22/2014 Triglycerides 140 mg/dL 21, 24 Cholesterol 182 mg/dL 21, 25 HDL Cholesterol 52.1 mg/dL 21, 26 LDL Cholesterol 102 mg/dL 21, 27 Laboratory test finding 05/24/2013 Hemoglobin A1c 6.0 5-7 Laboratory test finding 02/15/2013 Blood Urea Nitrogen 21 mg/dL 6-24 Creatinine 02/15/2013 Creatinine 1.10 mg/dL 0.50-1.40 Egfr Non- 65.4 >60 Egfr 84.2 >60 28 CBC With Manual Diff 01/11/2013 White Blood [...] than 200 HDL Cholesterol 42 mg/dL 40-60 29 Cholesterol/HDL Ratio 3.2 Average 1-4.44 LDL Cholesterol 69.6 Less Than 100 30 Basic Metabolic Panel 01/11/2013 Sodium 133 mmol/L 133-145 Potassium 4.2 mmol/L 3.5-5.0 Chloride 101 mmol/L 101-111 Co2 Carbon Dioxide 25.0 mmol/L 22-32 Anion Gap 7.0 mmol/L 2-11 Glucose 121 mg/dL High 70-100 Blood Urea Nitrogen 19 mg/dL 6-24 Creatinine 1.00 mg/dL 0.50-1.40 BUN/Creatinine Ratio 19.0 8-20 Calcium 9.3 mg/dL 8.1-9.9 Egfr Non- 73.2 >60 Egfr 94.2 >60 31 Liver Function Panel 01/11/2013 Total Protein 6.8 g/dL 6.2-8.1 Albumin 3.8 g/dL 3.2-5.2 Globulin 3.0 g/dL 2-4 Albumin/Globulin Ratio 1.3 1-3 Total Bilirubin 0.8 mg/dL 0.4-1.5 Direct Bilirubin 0.1 mg/dL 0.1-0.5 Indirect Bilirubin 0.7 mg/dL 0.3-1.0 Alkaline Phosphatase 58 U/L 30-110 Alt 19 U/L 14-54 Ast 22 U/L 12-42 Laboratory test finding 01/11/2013 Creatine Kinase 92 U/L 0-200 32 Pathologist Review (SEE NOTE) 33 Basic Metabolic Panel 02/03/2012 Sodium 135 mmol/L 135-145 Potassium 4.1 mmol/L 3.5-5.0 Chloride 99 mmol/L Low 101-111 Co2 (Carbon Dioxide) 29.0 mmol/L 22-32 Anion Gap 7.0 mmol/L 2-11 34 Glucose 100 mg/dL 70-100 BUN 17 mg/dL 6-24 Creatinine 1.1 mg/dL 0.50-1.40 One Over Creatinine 0.90 BUN/Creatinine Ratio 15.5 8-20 Calcium 9.6 mg/dL 8.1-9.9 eGFR Non- 65.6 > 60 eGFR 84.4 > 60 35 Lipid Profile (Trig/Chol/HDL) 12/02/2011 Triglyceride 90 mg/dL 40-200 Cholesterol 154 mg/dL Less Than 200 36 High Density Lipoprotein 48 mg/dL 40-60 37 Cholesterol/HDL Ratio 3.21 AVERAGE 1-4.97 Low Density Lipoprotein 88 mg/dL Less Than 100 38 Comp Metabolic Panel 12/02/2011 Sodium 135 mmol/L 135-145 Potassium 3.6 mmol/L 3.5-5.0 Chloride 101 mmol/L 101-111 Co2 (Carbon Dioxide) 28.0 mmol/L 22-32 Anion Gap 6.0 mmol/L 2-11 39 Glucose 96 mg/dL 70-100 BUN 15 mg/dL 6-24 Creatinine 0.9 mg/dL 0.50-1.40 One Over Creatinine 1.11 BUN/Creatinine Ratio 16.7 8-20 Calcium 9.1 mg/dL 8.1-9.9 Total Protein 7.1 GM/DL 6.2-8.1 Albumin 4.1 GM/DL 3.2-5.2 Globulin 3.0 GM/DL 2-4 Albumin/Globulin Ratio 1.4 1-3 Bilirubin Total 0.9 mg/dL 0.4-1.5 40 Alkaline Phosphatase 57 U/L 39-117 Alt (SGPT) 32 U/L 17-63 Ast (Sgot) 34 U/L 12-42 eGFR Non- 82.9 > 60 eGFR 106.7 > 60 41 Laboratory test finding 12/02/2011 Hemoglobin A1c 6.6 % High Less Than 6.0 42 CBC Auto Diff 04/23/2011 White Blood Count [...] Eosinophils 0.3 0-0.6 Abs Basophils 0 0-0.2 43 Basic Metabolic Panel 04/23/2011 Sodium 135 mmol/L 135-145 Potassium 4.3 mmol/L 3.5-5.0 Chloride 98 mmol/L Low 101-111 Co2 (Carbon Dioxide) 31.0 mmol/L 22-32 Anion Gap 6.0 mmol/L 2-11 44 Glucose 101 mg/dL High 70-100 BUN 16 mg/dL 6-24 Creatinine 1.0 mg/dL 0.50-1.40 One Over Creatinine 1.00 BUN/Creatinine Ratio 16.0 8-20 Calcium 9.6 mg/dL 8.1-9.9 eGFR Non- 73.5 > 60 eGFR 94.5 > 60 45 CBC Auto Diff 01/16/2011 White Blood Count [...] mmol/L 22-32 Anion Gap 8.0 mmol/L 2-11 46 Glucose 150 mg/dL High 70-100 BUN 13 mg/dL 6-24 Creatinine 1.00 mg/dL 0.50-1.40 One Over Creatinine 1.00 BUN/Creatinine Ratio 13.0 8-20 Calcium 10.0 mg/dL High 8.1-9.9 eGFR Non- 73.7 > 60 eGFR 94.7 > 60 47 CBC With Electronic Diff 05/10/2010 White Blood Count 6.2 CUMM 4.8-10.8 48 Red Cell Count 4.84 CUMM 4.6-6.2 48 Hemoglobin 15.0 g/dL 14.0-18.0 48 Hematocrit 43 % 42-52 48 Mean Corpuscular Volume 88 um3 80-94 48 Mean Corpuscular Hemoglob 31 pg 27-31 48 Mean Corpuscular HGB Cone 35 g/dL 32-36 48 Redcell Distribution WDTH 15 % 10.5-15 48 Platelet Count 240 CUMM 150-450 48 Mean Platelet Volume 7.4 um3 7.4-10.4 48 Gran % 57.4 % 38-83 48 Lymph % 28.9 % 25-47 48 Mononuclear % 8.8 % 1-9 48 Eosinophil % 4.1 % 0-6 48 Basophil % 0.8 % 0-2 48 Abs Lymphs 1.8 1.0-4.8 48 Abs Mononuclear 0.5 0-0.8 48 Absolute Neutrophil Count 3.6 1.5-7.7 48 Abs Eosinophils 0.3 0-0.6 48 Abs Basophils 0 0-0.2 48 Basic Metabolic Panel 05/10/2010 Sodium 138 mmol/L 135-145 48 Potassium 4.4 mmol/L 3.5-5.0 48 Chloride 102 mmol/L 101-111 48 Co2 (Carbon Dioxide) 27.0 mmol/L 22-32 48 Anion Gap 9.0 mmol/L 2-11 48, 49 Glucose 121 mg/dL High 70-100 48, 50 BUN 10 mg/dL 6-24 48 Creatinine 1.00 mg/dL 0.50-1.40 48 One Over Creatinine 1.00 48 BUN/Creatinine Ratio 10.0 8-20 48 Calcium 9.6 mg/dL 8.1-9.9 48 eGFR Non- 78.3 > 60 48 eGFR 94.7 > 60 48, 51 DR Welch's Lab Panel 01/19/2010 TSH 2.13 MIU/ML 0.34-5.60 Comp Metabolic Panel 01/19/2010 Sodium 135 mmol/L 135-145 Potassium 5.4 mmol/L High 3.5-5.0 Chloride 100 mmol/L Low 101-111 Co2 (Carbon Dioxide) 28.0 mmol/L 22-32 Anion Gap 7.0 mmol/L 2-11 52 Glucose 107 mg/dL High 70-100 53 BUN 18 mg/dL 6-24 Creatinine 1.00 mg/dL 0.50-1.40 One Over Creatinine 1.00 BUN/Creatinine Ratio 18.0 8-20 Calcium 9.2 mg/dL 8.1-9.9 54 Total Protein 6.7 GM/DL 6.2-8.1 Albumin 3.3 GM/DL 3.2-5.2 Globulin 3.4 GM/DL 2-4 Albumin/Globulin Ratio 1.0 1-3 Bilirubin Total 0.6 mg/dL 0.4-1.5 55 Alkaline Phosphatase 88 U/L 39-117 Alt (SGPT) 54 U/L 17-63 Ast (Sgot) 38 U/L 12-42 eGFR Non- 78.3 > 60 eGFR 94.7 > 60 56 Lipid Profile (Trig/Chol/HDL) 01/19/2010 Triglyceride 139 mg/dL 40-200 Cholesterol 141 mg/dL Less Than 200 57 High Density Lipoprotein 38 mg/dL Low 40-60 58 Cholesterol/HDL Ratio 3.71 AVERAGE 1-4.97 Low Density Lipoprotein 75 mg/dL Less Than 100 59 CBC With Electronic Diff 01/19/2010 White Blood [...] Eosinophils 0.2 0-0.6 Abs Basophils 0.1 0-0.2 60 CBC With Electronic Diff 12/13/2008 White Blood [...] Eosinophils 0.2 0-0.6 Abs Basophils 0 0-0.2 Comp Metabolic Panel 12/13/2008 Sodium 137 mmol/L [...] U/L 17-63 Ast (Sgot) 31 U/L 12-42 Lipid Profile (Trig/Chol/HDL) 12/13/2008 Triglyceride 95 mg/dL 40-200 Cholesterol 164 mg/dL Less Than 200 65 High Density Lipoprotein 44 mg/dL 40-60 66 Cholesterol/HDL Ratio 3.73 AVERAGE 1-4.97 Low Density Lipoprotein 101 mg/dL High Less Than 100 67 Laboratory test finding 12/13/2008 TSH 1.75 MIU/ML 0.34-5.60 PSA,Diagnostic 0.97 NG/ML 0-4 68 Lipid Profile (Trig/Chol/HDL) 02/02/2008 Triglyceride 185 mg/dL 40-200 Cholesterol 172 mg/dL Less Than 200 69 High Density Lipoprotein 38 mg/dL Low 40-60 70 Cholesterol/HDL Ratio 4.53 AVERAGE 1-4.97 Low Density Lipoprotein 97 mg/dL Less Than 100 71 Laboratory test finding 02/02/2008 Alt (SGPT) 22 U/L 17-63 Ast (Sgot) 23 U/L 12-42 1 standing order 2 Because ethnic data is not always readily [...] 15-29 5 Kidney failure <15 (or dialysis) 3 Please note the change in INR reference range effective 17. 4 Critical Result LACT:2.2 Called to [id number]. at: 17:03:38 by:[id number] Read back by:MOSHE. [place] Severe Sepsis and Septic Shock Management Bundle Measure requires all lactic acids initially measuring >2.0 mmol/L be repeated. 5 Desirable: <150 Borderline High: 150-199 High: 200-499 Very High: >500 6 Desirable: <200 Borderline High: 200-239 High: >239 7 Low: <40 Desirable: 40-60 High: >60 8 Desirable: <100 Near Optimal: 100-129 Borderline High: 130-159 High: 160-189 Very High: >189 9 Because ethnic data is not always readily [...] 15-29 5 Kidney failure <15 (or dialysis) 10 Because ethnic data is not always readily [...] 15-29 5 Kidney failure <15 (or dialysis) 11 FASTING 10 HOUR 12 Because ethnic data is not always readily [...] 15-29 5 Kidney failure <15 (or dialysis) 13 Desirable <150 Borderline high 150-199 High 200-499 Very High >500 14 Desirable <200 Borderline high 200-239 High >239 15 Low <40 Desirable: 40-60 High: >60 16 Desirable: <100 mg/dL Near Optimal: 100-129 mg/dL Borderline High: 130-159 mg/dL High: 160-189 mg/dL Very High: >189 mg/dL 17 Therapeutic target for the treatment of diabetes Mellitus patients is <7% HBA1C, and in selective patients <6.0%.Please refer to [place] [employer] Diabetic care guidelines for further information. 18 SEE RESULT BELOW Name: JOSE JUAN CHOE Krysta : [address]: Jez Damon MD Acct: [id number] Unit: [id number] AGE: 75 Location: ENDO Re02/17/15 SEX: M Status: REG REF SPEC: [id number] LISET: 02/17/15-[address] [facility] [address]: Jez Damon MD REQ: [id number] RECD: 02/17/15-1275 STATUS: PATTY ANTONIO DR: Matthias Welch III, [...] performed at Main Lab DEPARTMENT OF PATHOLOGY, [address] [place] [address] Humberto Lunsford M.D. Director [facility] # [id number] 19 Potassium reference range changed effective 05/29/14 20 Because ethnic data is not always readily [...] 15-29 5 Kidney failure <15 (or dialysis) 21 PT IS FASTING 22 Because ethnic data is not always readily [...] 15-29 5 Kidney failure <15 (or dialysis) 23 PT IS FASTING 24 Desirable <150 Borderline high 150-199 High 200-499 Very High >500 25 Desirable <200 Borderline high 200-239 High >239 26 Low <40 Desirable: 40-60 High: >60 27 Desirable <100 Near Optimal 100-129 Borderline high 130-159 High 160-189 Very High >189 28 Because ethnic data is not always readily [...] 15-29 5 Kidney failure <15 (or dialysis) 29 HDL Interpretation: Undesirable: High Risk: Less than 40 mg/dL Desirable: Low Risk: Greater than 60 mg/dL 30 LDL Interpretation: Low Risk Optimal Level: LDL Less than 100 mg/dL Near or Above Optimal: LDL 100-129 mg/dL Borderline High Risk: LDL 130-159 mg/dL High Risk: LDL 160-189 mg/dL Very High Risk: LDL Greater than 189 mg/dL 31 Because ethnic data is not always [...] 5 Kidney failure <15 (or dialysis) 32 FASTING Lab added 33 CBC and smear reviewed. Eosinophilia confirmed. May be allergy, drug or parasite related. REVIEWED BY HUMBERTO LUNSFORD MD 34 Anion gap measurement may be of limited value in the presence of any alkalosis, especially in a combined acid base disorder. . 35 Because ethnic data is not always [...] Risk: LDL Greater than 189 MG/DL 39 Anion gap measurement may be of limited value in the presence of any alkalosis, especially in a combined acid base disorder. . 40 A metabolite of Naproxen, O-desmethylnaproxen, has been shown to interfere with the [place] method for measuring total bilirubin. Samples from patients who have taken Naproxen have shown spurious elevation in total bilirubin levels. 41 Because ethnic data is not always [...] 5 Kidney failure <15 (or dialysis) 42 THERAPEUTIC TARGET FOR THE TREATMENT OF DIABETES MELLITUS PATIENTS IS <7% HBA1C, AND IN SELECTIVE PATIENTS <6.0%. PLEASE REFER TO [place] [employer] DIABETIC CARE GUIDELINES FOR FURTHER INFORMATION. 43 H H Check Failed 44 Anion gap measurement may be of limited value in the presence of any alkalosis, especially in a combined acid base disorder. . 45 Because ethnic data is not always readily [...] 15-29 5 Kidney failure <15 (or dialysis) 46 Anion gap measurement may be of limited value in the presence of any alkalosis, especially in a combined acid base disorder. . 47 Because ethnic data is not always [...] 5 Kidney failure <15 (or dialysis) 48 SAME DAY SURGERY 05-14-10 49 Anion gap measurement may be of limited value in the presence of any alkalosis, especially in a combined acid base disorder. . 50 Note change in reference range as of 03/17/08. The change was based on recommendations from the [place] [employer]. 51 Because ethnic data is not always readily [...] 15-29 5 Kidney failure <15 (or dialysis) 52 Anion gap measurement may be of limited value in the presence of any alkalosis, especially in a combined acid base disorder. . 53 Note change in reference range as of 03/17/08. The change was based on recommendations from the [place] [employer]. 54 Please note change in reference range effective 07 . 55 A metabolite of Naproxen, O-desmethylnaproxen, has been shown to interfere with the [place]rass[place] method for measuring total bilirubin. Samples from patients who have taken Naproxen have shown spurious elevation in total bilirubin levels. 56 Because ethnic data is not always readily [...] 15-29 5 Kidney failure <15 (or dialysis) 57 CHOLESTEROL INTERPRETATION: Desirable: Less than 200 MG/DL Borderline-High Risk: 200-239 MG/DL High-Risk: 240 MG/DL and over 58 HDL INTERPRETATION: Undesirable: High Risk: Less than 40 MG/DL Desirable: Low Risk: Greater than 60 MG/DL 59 LDL INTERPRETATION: Low Risk Optimal Level: LDL Less than 100 MG/DL Near or Above Optimal: LDL 100-129 MG/DL Borderline High Risk: LDL 130-159 MG/DL High Risk: LDL 160-189 MG/DL Very High Risk: LDL Greater than 189 MG/DL 60 Lymphopenia % 61 Anion gap measurement may be of limited value in the presence of any alkalosis, especially in a combined acid base disorder. . 62 Note change in reference range as of 03/17/08. The change was based on recommendations from the [employer]. 63 Please note change in reference range effective 07 . 64 A metabolite of Naproxen, O-desmethylnaproxen, has been shown to interfere with the [place] method for measuring total bilirubin. Samples from [...] High Risk: LDL Greater than 189 MG/DL 68 * SERUM LEVELS OF PSA MEASURED USING THE Inspirotec ACCESS HYBRITECH IMMUNOASSAY SHOULD NOT BE INTERPRETED ABSOLUTE EVIDENCE OF THE PRESENCE OR ABSENCE OF DISEASE. THE PSA VALUE SHOULD BE USED IN CONJUNCTION WITH OTHER PERTINENT CLINICAL DIAGNOSTIC PROCEDURES. 69 CHOLESTEROL INTERPRETATION: Desirable: Less than 200 MG/DL Borderline-High Risk: 200-239 MG/DL High-Risk: 240 MG/DL and over 70 HDL INTERPRETATION: Undesirable: High Risk: Less than 40 MG/DL Desirable: Low Risk: Greater than 60 MG/DL 71 LDL INTERPRETATION: Low Risk Optimal Level: LDL Less than 100 MG/DL Near or Above Optimal: LDL 100-129 MG/DL Borderline High Risk: LDL 130-159 MG/DL High Risk: LDL 160-189 MG/DL Very High Risk: LDL Greater than 189 MG/DL Procedures Date CPT Code Description Status 08/26/2017 45765 EKG Tracing & Interpretation Completed 08/22/2017 80356 ECHO Transthoracic, Real-Time 2D With Doppler And Color Completed Flow 08/22/2017 35161 ECHO Transthoracic, Real-Time 2D With Doppler And Color Completed Flow 07/18/2017 98299 EKG, Interpretation Only Completed 07/18/2017 89036 EKG, Tracing Only, No Interpretation Completed 07/18/2017 01949 EKG Tracing & Interpretation Completed 03/19/2017 86802 Color Flow Doppler/Interp & Reprt Completed 03/19/2017 16419 Pulse Wave/Continuous-Interp.RPT Completed 03/19/2017 23630 Echocardiography, Transesophageal, Real Time W/Image 2D Completed W/W/O M-M 02/04/2017 06352 ECHO Transthoracic, Real-Time 2D With Doppler And Color Completed Flow 01/06/2017 89663 EKG Tracing & Interpretation Completed 01/24/2016 06774 ECHO Transthoracic, Real-Time 2D With Doppler And Color Completed Flow 12/22/2015 77577 EKG Tracing & Interpretation Completed 02/17/2015 Colonoscopy Completed 12/14/2014 04021 EKG Tracing & Interpretation Completed 12/12/2014 05051 ECHO Transthoracic, Real-Time 2D With Doppler And Color Completed Flow 03/16/2014 34718 Echocardiography, Transesophageal, Real Time W/Image 2D Completed W/W/O M-M 03/16/2014 48033 Color Flow Doppler/Interp & Reprt Completed 03/16/2014 03514 Pulse Wave/Continuous-Interp.RPT Completed 01/10/2014 00883 EKG Tracing & Interpretation Completed 12/27/2013 45022 ECHO Transthoracic, Real-Time 2D With Doppler And Color Completed Flow 06/22/2013 71423 ECHO Transthoracic, Real-Time 2D With Doppler And Color Completed Flow 01/19/2013 63839 ECHO Transthoracic, Real-Time 2D With Doppler And Color Completed Flow 01/08/2013 89883 EKG Tracing & Interpretation Completed 01/01/2012 78941 EKG Tracing & Interpretation Completed 12/26/2011 39678 ECHO Transthoracic, Real-Time 2D With Doppler And Color Completed Flow 05/24/2011 56659 EKG Tracing & Interpretation Completed 05/16/2011 69956 ECHO Transthoracic, Real-Time 2D With Doppler And Color Completed Flow 12/25/2010 90636 EKG Tracing & Interpretation Completed 06/04/2010 98020 Echocardiogram Completed 06/04/2010 27928 ECHO Transthorasic Realtime 2D W Doppler & Color Completed Flow Hosp 06/01/2010 50278 EKG Tracing & Interpretation Completed 02/01/2010 97609 ECHO Stress Test Incl Perf Contiuous ekg Monitoring Completed W/Phys Superv 01/24/2010 97991 ECHO Transthoracic, Real-Time 2D With Doppler And Color Completed Flow 01/15/2010 39783 EKG Tracing & Interpretation Completed 12/26/2009 43793 EKG Tracing & Interpretation Completed 12/19/2009 19235 ECHO Transthoracic, Real-Time 2D With Doppler And Color Completed Flow 04/19/2009 81448 Color Flow Doppler/Interp & Reprt Completed 04/19/2009 42706 Pulse Wave/Continuous-Interp.RPT Completed 04/19/2009 07097 Echocardiography, Transesophageal, Real Time W/Image 2D Completed W/W/O M-M 03/24/2009 10126 Selective Coronary Angioplasty Completed 03/24/2009 35771 S/I/R Inj Proc Vent And Or Atrial Completed 03/24/2009 20330 Coronary Angiography Completed 03/24/2009 67399 Inj Proc LFT Vent/LFT Atrl Angio Completed 03/24/2009 11393 Com RT And LT Catheterization Completed 03/22/2009 27262 EKG Tracing & Interpretation Completed 01/30/2009 19146 ECHO Transthoracic, Real-Time 2D With Doppler And Color Completed Flow 12/30/2006 26242 Color Doppler Completed 12/30/2006 56995 Pulse Doppler & Continuous Wave Completed 12/30/2006 93420 Pulse Doppler & Continuous Wave Completed 12/30/2006 98983 Echocardiogram Completed 02/15/2005 Colonoscopy Completed Encounters Type Date Location Provider CPT E/M Dx Office Visit 09/11/2017 11:00a [facility] Nellie Nelson, N.PGladys [id number] I25.10 I48.0 I73.9 I50.9 E78.5 Office Visit 08/26/2017 3:00p [facility] Brandon Willingham, 35232 I25.10 Mateo I48.0 R06.03 I73.9 I50.9 I27.20 E66.9 E78.5 I44.0 Office Visit 08/13/2017 2:20p [facility] Matthias Welch, 39632 I25.10 Vilma Eaton M.D. I73.9 E78.2 J06.9 Office Visit 07/20/2017 10:36a [facility], Kvng Kenney, 33391 R57.1 Hospitalists N.P. I25.10 I73.9 I10 Office Visit 07/18/2017 10:30a [facility] LINSEY Batista 22454 I73.9 I21.4 I82.491 I10 I48.91 R57.0 Office Visit 07/15/2017 9:00a [facility] Eileen Orr M.D. 47728 I73.9 I82.401 I10 I25.10 I48.91 I50.43 Office Visit 07/11/2017 8:15a [facility] Mel Santiago, RESEARCH ASSISTANT 85874 R04.0 Office Visit 06/02/2017 10:00a [facility] Qutaybeh S. Maghaydah, 60611 Z95.2 M.D. R60.9 I35.0 I73.9 E78.2 Office Visit 01/06/2017 4:00p [facility] Qutaybeh S. Maghaydah, 55908 I35.0 M.D. R60.9 E78.2 I73.9 Office Visit 12/22/2015 10:40a [facility] Qutaybeh S. Maghaydah, 64508 I73.9 M.D. I35.0 I10 E78.2 I25.10 R53.83 R06.02 Office Visit 03/07/2015 9:30a [facility] LINSEY Batista 31120 443.9 424.1 401.1 272.2 Office Visit 12/14/2014 10:00a [facility] Qutaybeh S. Maghaydah, 74524 V42.2 M.D. 424.1 443.9 401.1 272.0 Office Visit 06/01/2014 2:00p [facility] Matthias Welch, 04536 401.1 - Jerry Galindo 272.0 443.9 424.1 790.21 Office Visit 05/19/2014 1:30p [facility] LINSEY Batista 73785 401.0 272.2 443.9 272.0 424.1 Office Visit 04/14/2014 4:00p [facility] Qutaybeh S. Maghaydah, 08646 424.1 M.D. 414.01 V42.2 401.0 272.2 Office Visit 03/16/2014 8:00a [facility] Qutaybeh S. Maghaydah, 77597 424.1 M.D. Office Visit 01/10/2014 10:00a [facility] Qutaybeh S. Maghaydah, 30447 424.1 M.D. 401.1 414.01 V42.2 443.9 Office Visit 01/08/2013 3:20p [facility] Qutaybeh S. Maghaydah, 81807 V42.2 M.D. 272.0 414.01 424.1 Office Visit 04/23/2012 1:20p [facility] 80697 782.1 - Jerry Galindo Office Visit 02/18/2012 10:30a [facility], 83825 401.1 [facility] N[facility] Office Visit 01/16/2012 10:30a [facility], 91141 401.1 [facility] N[facility] Office Visit 01/01/2012 3:20p [facility] 42239 401.1 [facility] Mateo Willingham 272.0 414.01 V42.2 424.1 Office Visit 05/24/2011 11:40a [facility] S. Maghaydah, 67144 424.1 M.D. 401.1 414.01 V42.2 272.0 Office Visit 12/25/2010 2:20p [facility] S. Maghaydah, 87437 424.1 M.D. 401.1 414.01 V42.2 Office Visit 06/01/2010 9:00a [facility] S. Maghaydah, 63431 401.1 M.D. 424.1 272.0 414.01 Office Visit 05/02/2010 9:40a DO Not Use [facility], 99718 552.1 [facility].DGladys 401.1 424.1 272.0 Office Visit 02/01/2010 11:20a DO Not Use [facility], 98393 424.1 [facility] M.D. 401.1 272.0 790.21 Office Visit 01/15/2010 3:40p [facility] Qutayb S. Maghaydah, 73439 424.1 M.D. 414.01 401.1 V42.2 Office Visit 12/26/2009 9:00a [facility] Qutayb S. Maghaydah, 96334 424.1 M.D. 786.05 414.01 Office Visit 04/19/2009 7:00a [facility] Dale Campuzano, 31170 414.01 M.D. 424.1 401.1 Office Visit 03/30/2009 10:40a [facility] Dale Campuzano, 69935 424.1 M.D. 414.01 401.1 272.4 746.3 Office Visit 03/24/2009 7:00a [facility] Dale Campuzano, 69788 424.1 M.D. 414.01 401.1 272.4 Office Visit 03/22/2009 10:20a [facility] Dale Campuzano, 81046 746.3 M.D. 401.1 272.0 424.0 785.2 Office Visit 02/14/2009 10:30a [facility], 18327 272.0 [facility] M.D. 746.3 401.1 Office Visit 12/22/2008 2:45p [facility], 55365 424.2 [facility] M.D. 424.0 433.10 459.81 Office Visit 12/31/2007 3:00p [facility], 98982 715.00 [facility] M.D. 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 Call in 1 week with readings. Please notify office if SBP>160.I48.0 Paroxysmal atrial fibrillationRecommendations: Continue warfarin at current dose. Check INR in 10 days.I73.9 Peripheral vascular disease, onyznbaxkuoJ46.9 Heart failure, unspecifiedRecommendations: Check weight daily. If you have > 3lb weight gain or loss please notify our office.E78.5 Hyperlipidemia, unspecified
--- OUTSIDE RECORDS SUMMARY | 2017-09-22 15:21 | XMS REPORT ---
:1940 External Reference #:[id number] Author Organization [facility] [employer] Address [address] [address] Phone [phone] Care Team Providers Name Role Phone Matthias Welch III, MD Primary Care Physician Unavailable Payers Type Date Identification Numbers Payment Provider Subscriber Medicare Primary Effective: Policy Number: Medicare Jose Juan Choe 2006 [id number] PayID: [id number] [address] [place] [address] [facility] Effective: Policy Number: [facility] Jose Juan Chaparro 2006 [id number] [employer] Number: [id number] [address] PayID: [id number] [place] [address] Problems Date Description Provider Status Onset: 05/24/2011 [...] (age Mother due to Post hx of [place]- from 62 Years) 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 by mouth on , day 1 then Mateo 1 tab 1hour later Prednisone 08/25 Active Tablets 20mg 7tabs take once daily Mateo Welch Epipen 02/19 Active Device 0.3mg/0.3 3unit use one Matthias E. ML s time as deisy Welch M.D. Amiodarone HCL Active Tablets 200mg 1 by mouth Unknown every day Atorvastatin Active Tablets 40mg 90tab 1 by mouth Matthias Alvares / s every day Mateo Welch Carvedilol Active Tablets 3.125mg 1 by mouth Unknown twice a day Colace Active Capsules 100mg 1 tab by / mouth q 12 hrs as needed Coumadin Active Tablets 4mg 1 tablet po every PM as directed for DVT,Pad,CAD Lasix Active Tablets 20mg 1 by mouth Unknown /0000 every day Plavix Active Tablets 75mg 1 by mouth Unknown /0000 every day Tramadol HCL Active Tablets 50mg 1-2 tablets Unknown /0000 every 6 hours as needed Acetaminophen ER 00 Active Tablets 650mg 1 tab by Unknown /0000 ER mouth q4 hours as needed pain Metoprolol Active Tablets 100mg 1 by mouth Unknown Succinate ER /0000 ER 24HR every day Pantoprazole Active Solution 40mg 1 by mouth Unknown Sodium /0000 Rec every day Lisinopril 06/10 Hx Tablets 20mg 90tab 1 by mouth I10 s daily Dale Willingham 07/17 , Mateo Lisinopril 05/19 Hx Tablets 5mg 360ta 2 by mouth 401.0 bs twice a day Dale Willingham 06/10 Mateo Lisinopril 04/14 Hx Tablets 10mg 1 by mouth every day Dale Willingham 05/19 , Mateo Hydrochlorothiazid 01/08 Hx Tablets 25mg 90tab 1 po qd Qutaybeh Dale Willingham 01/08 Mateo Hydrochlorothiazid 01/08 Hx Tablets 25mg 90tab 1 po qd Qutaybeh Dale Willingham 01/08 Mateo Hydrochlorothiazid 01/08 Hx Tablets 25mg 90tab 1 by mouth Anntaybchris s every day Dale Willingham 07/17 , Mateo Hydrochlorothiazid 10/15 Hx Tablets 25mg 90tab 1 po qd Qutaybeh Dale Willingham 01/08 Mateo Valtrex 04/23 Hx Tablets 1gm 21tab 1 po q8h 782.1 Matthias Alvares Vilma Blank M.D. 01/08 Hydrochlorothiazid 06/01 Hx Tablets 25mg 90tab 1 po qd Qutaybeh Dale Willingham 10/15 Mateo Chlorhexidine 01/30 Hx Solution 0.12% 1mont 15 ml Matthias EGladys Gluconate pedro swish/spit Rebekah, - po until M.D. 02/01 bottle is gone. Norvasc 12/26 Hx Tablets 10mg 90tab 1 po qd [facility] M.D[facility]adys Atenolol 03/30 Hx Tablets 50mg 1/2 po bid Matthias E. Vilma Welch M.D. 01/15 Centrum Silver 03/22 Hx Tablets 1 po qd [facility] , Cesar.DGladys Norvasc 03/22 Hx Tablets 5mg 90tab 2 po qd Qutaybeh s S. - [facility]ah 12/26 , Cesar.Quin Ramipril 12/29 Hx Capsules 10mg 90cap 1 po qd Matthias EGladys Vilma Blank M.D. 03/22 Diovan 12/22 Hx Tablets 160mg 90tab 1 po qd Matthias EGladys Vilma Blank M.D. 12/29 Diovan 09/26 Hx Tablets 80mg 90tab 1 po qd Matthias EGladys Vilma Blank M.D. 12/22 Simvastatin 12/30 Hx Tablets 20mg 90tab 1 by mouth s [facility] , Mateo HCTZ 12/30 Hx 25mg. 90uni 1 po qd Matthias E. Vilma Hankins M.D. 03/30 Atenolol 12/30 Hx Tablets 50mg 90tab 1 po qd Matthias EGladys Vilma Blank M.D. 03/30 Diovan 12/30 Hx Tablets 80mg 90tab 1 PO qd Matthias E. Vilma Blank M.D. 12/30 Naprosyn 12/30 Hx Tablets 500mg 180ta 1 po bid Matthias EGladys bs prn Vilma Welch M.D. 01/30 Lisinopril 12/30 Hx Tablets 20mg 90tab 1 po qd Matthias Alvares /2007 Vilma Blank M.D. 09/26 Vit E Hx 1000mg one po qd Unknown /0000 - 01/30 Aspir-81 Hx Tablets 81mg 90tab 1 by mouth Qutaybeh /0000 DR nicholas every day Dale Willingham 08/25 Mateo /2017 [...] Hx 10Meq 1 qd for 10 Unknown / days - 02/01 Vitamin C Hx 500 mg qd Unknown /0000 for 1 month - 02/01 Tylenol Arthritis Hx Tablets 650mg 100ta 1 po qd Unknown Pain /0000 ER bs - 12/15 Amlodipine Hx Tablets 10mg 90tab 1 by mouth Qutaybeh Besylate /0000 s every day SGladys Willingham 07/17 Mateo /2016 Lisinopril Hx Tablets 5mg 90tab 1 by mouth Qutaybeh /0000 s every day SGladys Willingham (eveing) 04/14 Mateo /2013 Cilostazol Hx 100mg 1 tablet Unknown /0000 twice a day - 07/17 Lisinopril Hx Tablets 2.5mg 1 by mouth Unknown /0000 every day - at bedtime 08/13 for HTN /2018 Hold for SBP <100 Lovenox Hx Solution 100mg/ml inject 85mg Unknown /0000 subcutaneou - sly every 08/13 12 hours /2017 for DVT Immunizations CPT Code Status Date Vaccine Lot # [id number] Given 05/09/2016 Fluzone High Dose 60306 Given 02/23/2015 Pneumococcal Conjugate Vaccine 13 Valent For [id number] Intramuscular Use 12506 Given 12/16/2011 Tdap - Tetanus/Diptheria/Acellular Pertussis [id number] 33268 Given 12/31/2007 Pneumonia Vaccine [id number] 89877 Given 11/22/1999 Pneumovax (History By Patient) [id number] 82062 Given 04/05/1999 Td (History By Patient) Vital Signs Date Vital Result Comment 08/26/2017 Height 67 inches 5'7" Weight 187.75 [...] Index) 29.6 kg/m2 Ejection Fraction 40-45% 07/13 [facility] 06/03/2017 Height 66.25 inches 5'6.25" Weight [...] Test Date Test Result H/L Range Note CBC Auto Diff 07/20/2017 White Blood Count [...] Blood Cells % 0 Laboratory test finding 07/20/2017 Troponin-I (TnI) 0.02 ng/mL <0.04 Comp Metabolic Panel 07/20/2017 Sodium 127 mmol/L [...] Egfr Non- 42.9 >60 Egfr 55.2 >60 1 Inr/Protime 07/20/2017 Inr 2.32 High 0.77-1.02 2 Laboratory test finding 07/20/2017 Partial Thrombo Time 42.0 seconds High 26.0-36.3 PTT Lactic Acid 2.2 mmol/L High 0.5-2.0 3 Laboratory test finding 06/03/2017 Hemoglobin A1c 6.3 5-7 Lipid Profile (Trig/Chol/HDL) 05/26/2017 Triglycerides 132 mg/dL 4 Cholesterol 174 mg/dL 5 HDL Cholesterol 41.1 mg/dL 6 LDL Cholesterol 107 mg/dL 7 Comp Metabolic Panel 05/26/2017 Sodium 134 mmol/L [...] Egfr Non- 52.5 >60 Egfr 67.5 >60 8 Potassium 5.3 mmol/L High 3.5-5.0 Anion Gap [...] Egfr Non- 57.4 >60 Egfr 73.9 >60 9 Comp Metabolic Panel 02/27/2015 Sodium 132 mmol/L Low 133-145 10 Potassium 4.5 mmol/L 3.5-5.0 10 Chloride 97 mmol/L Low 101-111 10 Co2 Carbon Dioxide 27 mmol/L 22-32 10 Anion Gap 8 mmol/L 2-11 10 Glucose 110 mg/dL High 70-100 10 Blood Urea Nitrogen 17 mg/dL 6-24 10 Creatinine 1.13 mg/dL 0.67-1.17 10 BUN/Creatinine Ratio 15.0 8-20 10 Calcium 9.4 mg/dL 8.6-10.3 10 Total Protein 7.3 g/dL 6.4-8.9 10 Albumin 4.3 g/dL 3.2-5.2 10 Globulin 3.0 g/dL 2-4 10 Albumin/Globulin Ratio 1.4 1-3 10 Total Bilirubin 0.60 mg/dL 0.2-1.0 10 Alkaline Phosphatase 50 U/L 34-104 10 Alt 14 U/L 7-52 10 Ast 19 U/L 13-39 10 Egfr Non- 63.1 >60 10 Egfr 81.1 >60 10, 11 Lipid Profile (Trig/Chol/HDL) 02/27/2015 Triglycerides 139 mg/dL 10, 12 Cholesterol 165 mg/dL 10, 13 HDL Cholesterol 46.2 mg/dL 10, 14 LDL Cholesterol 91 mg/dL 10, 15 Laboratory test 02/27/2015 Hemoglobin A1c 6.0 % Less than 10, 16 finding (Glyco HGB) 6.0 Laboratory test 02/17/2015 Surgical Pathology SEE RESULT 17 finding BELOW Basic Metabolic 06/07/2014 Sodium 133 mmol/L 133-145 Panel Potassium 4.6 mmol/L 3.5-5.0 18 Chloride 100 mmol/L Low 101-111 Co2 Carbon Dioxide 25 mmol/L 22-32 Anion Gap 8 mmol/L 2-11 Glucose 96 mg/dL 70-100 Blood Urea Nitrogen 24 mg/dL 6-24 Creatinine 1.15 mg/dL 0.67-1.17 BUN/Creatinine Ratio 20.9 High 8-20 Calcium 9.5 mg/dL 8.6-10.3 Egfr Non- 62.0 >60 Egfr 79.7 >60 19 Laboratory test finding 06/01/2014 Hemoglobin A1c 5.7 5-7 Basic Metabolic Panel 04/22/2014 Sodium 135 mmol/L 133-145 20 Potassium 4.3 mmol/L 3.7-5.6 20 Chloride 101 mmol/L 101-111 20 Co2 Carbon Dioxide 29 mmol/L 22-32 20 Anion Gap 5 mmol/L 2-11 20 Glucose 114 mg/dL High 70-100 20 Blood Urea Nitrogen 22 mg/dL 6-24 20 Creatinine 1.02 mg/dL 0.67-1.17 20 BUN/Creatinine Ratio 21.6 High 8-20 20 Calcium 9.4 mg/dL 8.6-10.3 20 Egfr Non- 71.2 >60 20 Egfr 91.6 >60 20, 21 Laboratory test finding 04/22/2014 Creatine Kinase 83 U/L 10-223 20, 22 Lipid Profile (Trig/Chol/HDL) 04/22/2014 Triglycerides 140 mg/dL 20, 23 Cholesterol 182 mg/dL 20, 24 HDL Cholesterol 52.1 mg/dL 20, 25 LDL Cholesterol 102 mg/dL 20, 26 Laboratory test finding 05/24/2013 Hemoglobin A1c 6.0 5-7 Creatinine 02/15/2013 Creatinine 1.10 mg/dL 0.50-1.40 Egfr Non- 65.4 >60 Egfr 84.2 >60 27 Laboratory test finding 02/15/2013 Blood Urea Nitrogen 21 mg/dL 6-24 Laboratory test finding 01/11/2013 Creatine Kinase 92 U/L 0-200 28 Pathologist Review (SEE NOTE) 29 Liver Function Panel 01/11/2013 Total Protein 6.8 g/dL 6.2-8.1 Albumin 3.8 g/dL 3.2-5.2 Globulin 3.0 g/dL 2-4 Albumin/Globulin Ratio 1.3 1-3 Total Bilirubin 0.8 mg/dL 0.4-1.5 Direct Bilirubin 0.1 mg/dL 0.1-0.5 Indirect Bilirubin 0.7 mg/dL 0.3-1.0 Alkaline Phosphatase 58 U/L 30-110 Alt 19 U/L 14-54 Ast 22 U/L 12-42 Basic Metabolic Panel 01/11/2013 Sodium 133 mmol/L 133-145 Potassium 4.2 mmol/L 3.5-5.0 Chloride 101 mmol/L 101-111 Co2 Carbon Dioxide 25.0 mmol/L 22-32 Anion Gap 7.0 mmol/L 2-11 Glucose 121 mg/dL High 70-100 Blood Urea Nitrogen 19 mg/dL 6-24 Creatinine 1.00 mg/dL 0.50-1.40 BUN/Creatinine Ratio 19.0 8-20 Calcium 9.3 mg/dL 8.1-9.9 Egfr Non- 73.2 >60 Egfr 94.2 >60 30 Lipid Profile (Trig/Chol/HDL) 01/11/2013 Triglycerides 122 mg/dL 40-200 Cholesterol 136 mg/dL Less than 200 HDL Cholesterol 42 mg/dL 40-60 31 Cholesterol/HDL Ratio 3.2 Average 1-4.44 LDL Cholesterol 69.6 Less Than 100 32 CBC With Manual Diff 01/11/2013 White Blood [...] % High 0-6 RBC Morphology Normal Normal Basic Metabolic Panel 02/03/2012 Sodium 135 mmol/L 135-145 Potassium 4.1 mmol/L 3.5-5.0 Chloride 99 mmol/L Low 101-111 Co2 (Carbon Dioxide) 29.0 mmol/L 22-32 Anion Gap 7.0 mmol/L 2-11 33 Glucose 100 mg/dL 70-100 BUN 17 mg/dL 6-24 Creatinine 1.1 mg/dL 0.50-1.40 One Over Creatinine 0.90 BUN/Creatinine Ratio 15.5 8-20 Calcium 9.6 mg/dL 8.1-9.9 eGFR Non- 65.6 > 60 eGFR 84.4 > 60 34 Laboratory test finding 12/02/2011 Hemoglobin A1c 6.6 % High Less Than 6.0 35 Comp Metabolic Panel 12/02/2011 Sodium 135 mmol/L 135-145 Potassium 3.6 mmol/L 3.5-5.0 Chloride 101 mmol/L 101-111 Co2 (Carbon Dioxide) 28.0 mmol/L 22-32 Anion Gap 6.0 mmol/L 2-11 36 Glucose 96 mg/dL 70-100 BUN 15 mg/dL 6-24 Creatinine 0.9 mg/dL 0.50-1.40 One Over Creatinine 1.11 BUN/Creatinine Ratio 16.7 8-20 Calcium 9.1 mg/dL 8.1-9.9 Total Protein 7.1 GM/DL 6.2-8.1 Albumin 4.1 GM/DL 3.2-5.2 Globulin 3.0 GM/DL 2-4 Albumin/Globulin Ratio 1.4 1-3 Bilirubin Total 0.9 mg/dL 0.4-1.5 37 Alkaline Phosphatase 57 U/L 39-117 Alt (SGPT) 32 U/L 17-63 Ast (Sgot) 34 U/L 12-42 eGFR Non- 82.9 > 60 eGFR 106.7 > 60 38 Lipid Profile (Trig/Chol/HDL) 12/02/2011 Triglyceride 90 mg/dL 40-200 Cholesterol 154 mg/dL Less Than 200 39 High Density Lipoprotein 48 mg/dL 40-60 40 Cholesterol/HDL Ratio 3.21 AVERAGE 1-4.97 Low Density Lipoprotein 88 mg/dL Less Than 100 41 Basic Metabolic Panel 04/23/2011 Sodium 135 mmol/L 135-145 Potassium 4.3 mmol/L 3.5-5.0 Chloride 98 mmol/L Low 101-111 Co2 (Carbon Dioxide) 31.0 mmol/L 22-32 Anion Gap 6.0 mmol/L 2-11 42 Glucose 101 mg/dL High 70-100 BUN 16 mg/dL 6-24 Creatinine 1.0 mg/dL 0.50-1.40 One Over Creatinine 1.00 BUN/Creatinine Ratio 16.0 8-20 Calcium 9.6 mg/dL 8.1-9.9 eGFR Non- 73.5 > 60 eGFR 94.5 > 60 43 CBC Auto Diff 04/23/2011 White Blood Count [...] Eosinophils 0.3 0-0.6 Abs Basophils 0 0-0.2 44 Basic Metabolic Panel 01/16/2011 Sodium 139 mmol/L 135-145 Potassium 3.8 mmol/L 3.5-5.0 Chloride 101 mmol/L 101-111 Co2 (Carbon Dioxide) 30.0 mmol/L 22-32 Anion Gap 8.0 mmol/L 2-11 45 Glucose 150 mg/dL High 70-100 BUN 13 mg/dL 6-24 Creatinine 1.00 mg/dL 0.50-1.40 One Over Creatinine 1.00 BUN/Creatinine Ratio 13.0 8-20 Calcium 10.0 mg/dL High 8.1-9.9 eGFR Non- 73.7 > 60 eGFR 94.7 > 60 46 CBC Auto Diff 01/16/2011 White Blood Count [...] Eosinophils 0.3 0-0.6 Abs Basophils 0.1 0-0.2 CBC With Electronic Diff 05/10/2010 White Blood Count 6.2 CUMM 4.8-10.8 47 Red Cell Count 4.84 CUMM 4.6-6.2 47 Hemoglobin 15.0 g/dL 14.0-18.0 47 Hematocrit 43 % 42-52 47 Mean Corpuscular Volume 88 um3 80-94 47 Mean Corpuscular Hemoglob 31 pg 27-31 47 Mean Corpuscular HGB Cone 35 g/dL 32-36 47 Redcell Distribution WDTH 15 % 10.5-15 47 Platelet Count 240 CUMM 150-450 47 Mean Platelet Volume 7.4 um3 7.4-10.4 47 Gran % 57.4 % 38-83 47 Lymph % 28.9 % 25-47 47 Mononuclear % 8.8 % 1-9 47 Eosinophil % 4.1 % 0-6 47 Basophil % 0.8 % 0-2 47 Abs Lymphs 1.8 1.0-4.8 47 Abs Mononuclear 0.5 0-0.8 47 Absolute Neutrophil Count 3.6 1.5-7.7 47 Abs Eosinophils 0.3 0-0.6 47 Abs Basophils 0 0-0.2 47 Basic Metabolic Panel 05/10/2010 Sodium 138 mmol/L 135-145 47 Potassium 4.4 mmol/L 3.5-5.0 47 Chloride 102 mmol/L 101-111 47 Co2 (Carbon Dioxide) 27.0 mmol/L 22-32 47 Anion Gap 9.0 mmol/L 2-11 47, 48 Glucose 121 mg/dL High 70-100 47, 49 BUN 10 mg/dL 6-24 47 Creatinine 1.00 mg/dL 0.50-1.40 47 One Over Creatinine 1.00 47 BUN/Creatinine Ratio 10.0 8-20 47 Calcium 9.6 mg/dL 8.1-9.9 47 eGFR Non- 78.3 > 60 47 eGFR 94.7 > 60 47, 50 DR Welch's Lab Panel 01/19/2010 TSH 2.13 MIU/ML 0.34-5.60 Comp Metabolic Panel 01/19/2010 Sodium 135 mmol/L 135-145 Potassium 5.4 mmol/L High 3.5-5.0 Chloride 100 mmol/L Low 101-111 Co2 (Carbon Dioxide) 28.0 mmol/L 22-32 Anion Gap 7.0 mmol/L 2-11 51 Glucose 107 mg/dL High 70-100 52 BUN 18 mg/dL 6-24 Creatinine 1.00 mg/dL 0.50-1.40 One Over Creatinine 1.00 BUN/Creatinine Ratio 18.0 8-20 Calcium 9.2 mg/dL 8.1-9.9 53 Total Protein 6.7 GM/DL 6.2-8.1 Albumin 3.3 GM/DL 3.2-5.2 Globulin 3.4 GM/DL 2-4 Albumin/Globulin Ratio 1.0 1-3 Bilirubin Total 0.6 mg/dL 0.4-1.5 54 Alkaline Phosphatase 88 U/L 39-117 Alt (SGPT) 54 U/L 17-63 Ast (Sgot) 38 U/L 12-42 eGFR Non- 78.3 > 60 eGFR 94.7 > 60 55 Lipid Profile (Trig/Chol/HDL) 01/19/2010 Triglyceride 139 mg/dL 40-200 Cholesterol 141 mg/dL Less Than 200 56 High Density Lipoprotein 38 mg/dL Low 40-60 57 Cholesterol/HDL Ratio 3.71 AVERAGE 1-4.97 Low Density Lipoprotein 75 mg/dL Less Than 100 58 CBC With Electronic Diff 01/19/2010 White Blood [...] Eosinophils 0.2 0-0.6 Abs Basophils 0.1 0-0.2 59 Lipid Profile (Trig/Chol/HDL) 12/13/2008 Triglyceride 95 mg/dL 40-200 Cholesterol 164 mg/dL Less Than 200 60 High Density Lipoprotein 44 mg/dL 40-60 61 Cholesterol/HDL Ratio 3.73 AVERAGE 1-4.97 Low Density Lipoprotein 101 mg/dL High Less Than 100 62 Comp Metabolic Panel 12/13/2008 Sodium 137 mmol/L 135-145 Potassium 5.3 mmol/L High 3.5-5.0 Chloride 103 mmol/L 101-111 Co2 (Carbon Dioxide) 29.0 mmol/L 22-32 Anion Gap 5.0 mmol/L 2-11 63 Glucose 105 mg/dL High 70-100 64 BUN 19 mg/dL 6-24 Creatinine 1.20 mg/dL 0.50-1.40 One Over Creatinine 0.80 BUN/Creatinine Ratio 15.8 8-20 Calcium 9.5 mg/dL 8.1-9.9 65 Total Protein 6.7 GM/DL 6.2-8.1 Albumin 4.0 GM/DL 3.2-5.2 Globulin 2.7 GM/DL 2-4 Albumin/Globulin Ratio 1.5 1-3 Bilirubin Total 0.8 mg/dL 0.4-1.5 66 Alkaline Phosphatase 62 U/L 39-117 Alt (SGPT) [...] Eosinophils 0.2 0-0.6 Abs Basophils 0 0-0.2 Laboratory test finding 12/13/2008 TSH 1.75 MIU/ML 0.34-5.60 PSA,Diagnostic 0.97 NG/ML 0-4 67 Lipid Profile (Trig/Chol/HDL) 02/02/2008 Triglyceride 185 mg/dL 40-200 Cholesterol 172 mg/dL Less Than 200 68 High Density Lipoprotein 38 mg/dL Low 40-60 69 Cholesterol/HDL Ratio 4.53 AVERAGE 1-4.97 Low Density Lipoprotein 97 mg/dL Less Than 100 70 Laboratory test finding 02/02/2008 Alt (SGPT) 22 U/L 17-63 Ast (Sgot) 23 U/L 12-42 1 Because ethnic data is not always readily [...] 15-29 5 Kidney failure <15 (or dialysis) 2 Please note the change in INR reference range effective 17. 3 Critical Result LACT:2.2 Called to [id number]. at: 17:03:38 by:[id number] Read back by:[id number]. [place] Severe Sepsis and Septic Shock Management Bundle Measure requires all lactic acids initially measuring >2.0 mmol/L be repeated. 4 Desirable: <150 Borderline High: 150-199 High: 200-499 Very High: >500 5 Desirable: <200 Borderline High: 200-239 High: >239 6 Low: <40 Desirable: 40-60 High: >60 7 Desirable: <100 Near Optimal: 100-129 Borderline High: 130-159 High: 160-189 Very High: >189 8 Because ethnic data is not always [...] 5 Kidney failure <15 (or dialysis) 9 Because ethnic data is not always [...] 5 Kidney failure <15 (or dialysis) 10 FASTING 10 HOUR 11 Because ethnic data is not always readily [...] 15-29 5 Kidney failure <15 (or dialysis) 12 Desirable <150 Borderline high 150-199 High 200-499 Very High >500 13 Desirable <200 Borderline high 200-239 High >239 14 Low <40 Desirable: 40-60 High: >60 15 Desirable: <100 mg/dL Near Optimal: 100-129 mg/dL Borderline High: 130-159 mg/dL High: 160-189 mg/dL Very High: >189 mg/dL 16 Therapeutic target for the treatment of diabetes Mellitus patients is <7% HBA1C, and in selective patients <6.0%.Please refer to [place] [employer] Diabetic care guidelines for further information. 17 SEE RESULT BELOW Name: JOSE JUAN CHOE : [address]: Jez Damon MD Acct: [id number] Unit: [id number] AGE: 75 Location: ENDO Re02/17/15 SEX: M Status: REG REF SPEC: [id number] LISET: 02/17/15-[address]: Jez Damon MD REQ: [id number] RECD: 02/17/15-1405 STATUS: PATTY ANTONIO DR: Matthias Welch III, [...] Signed (signature on file) Paula Lee MD 1411 END OF REPORT * ML=Testing performed at Main Lab DEPARTMENT OF PATHOLOGY, [address] [place] [address] Humberto Lunsford M.D. Director [facility] # [id number] 18 Potassium reference range changed effective 05/29/14 19 Because ethnic data is not always readily [...] 15-29 5 Kidney failure <15 (or dialysis) 20 PT IS FASTING 21 Because ethnic data is not always readily [...] 15-29 5 Kidney failure <15 (or dialysis) 22 PT IS FASTING 23 Desirable <150 Borderline high 150-199 High 200-499 Very High >500 24 Desirable <200 Borderline high 200-239 High >239 25 Low <40 Desirable: 40-60 High: >60 26 Desirable <100 Near Optimal 100-129 Borderline high 130-159 High 160-189 Very High >189 27 Because ethnic data is not always [...] related. REVIEWED BY HUMBERTO LUNSFORD MD 30 Because ethnic data is not always readily [...] 15-29 5 Kidney failure <15 (or dialysis) 31 HDL Interpretation: Undesirable: High Risk: Less than 40 mg/dL Desirable: Low Risk: Greater than 60 mg/dL 32 LDL Interpretation: Low Risk Optimal Level: LDL Less than 100 mg/dL Near or Above Optimal: LDL 100-129 mg/dL Borderline High Risk: LDL 130-159 mg/dL High Risk: LDL 160-189 mg/dL Very High Risk: LDL Greater than 189 mg/dL 33 Anion gap measurement may be of limited value in the presence of any alkalosis, especially in a combined acid base disorder. . 34 Because ethnic data is not always readily [...] 15-29 5 Kidney failure <15 (or dialysis) 35 THERAPEUTIC TARGET FOR THE TREATMENT OF DIABETES MELLITUS PATIENTS IS <7% HBA1C, AND IN SELECTIVE PATIENTS <6.0%. PLEASE REFER TO [place] [employer] DIABETIC CARE GUIDELINES FOR FURTHER INFORMATION. 36 Anion gap measurement may be of limited value in the presence of any alkalosis, especially in a combined acid base disorder. . 37 A metabolite of Naproxen, O-desmethylnaproxen, has been shown to interfere with the Jendrassik-Aleksey method for measuring total bilirubin. Samples from patients who have taken Naproxen have shown spurious elevation in total bilirubin levels. 38 Because ethnic data is not always readily [...] 15-29 5 Kidney failure <15 (or dialysis) 39 CHOLESTEROL INTERPRETATION: Desirable: Less than 200 MG/DL Borderline-High Risk: 200-239 MG/DL High-Risk: 240 MG/DL and over 40 HDL INTERPRETATION: Undesirable: High Risk: Less than 40 MG/DL Desirable: Low Risk: Greater than 60 MG/DL 41 LDL INTERPRETATION: Low Risk Optimal Level: LDL Less than 100 MG/DL Near or Above Optimal: LDL 100-129 MG/DL Borderline High Risk: LDL 130-159 MG/DL High Risk: LDL 160-189 MG/DL Very High Risk: LDL Greater than 189 MG/DL 42 Anion gap measurement may be of [...] 5 Kidney failure <15 (or dialysis) 44 H H Check Failed 45 Anion gap measurement may be of limited value in the presence of any alkalosis, especially in a combined acid base disorder. . 46 Because ethnic data is not always readily [...] 15-29 5 Kidney failure <15 (or dialysis) 47 SAME DAY SURGERY 05-14-10 48 Anion gap measurement may be of limited value in the presence of any alkalosis, especially in a combined acid base disorder. . 49 Note change in reference range as of 03/17/08. The change was based on recommendations from the [place] [employer]. 50 Because ethnic data is not always readily [...] 15-29 5 Kidney failure <15 (or dialysis) 51 Anion gap measurement may be of limited value in the presence of any alkalosis, especially in a combined acid base disorder. . 52 Note change in reference range as of 03/17/08. The change was based on recommendations from the [place] [employer]. 53 Please note change in reference range effective 07 . 54 A metabolite of Naproxen, O-desmethylnaproxen, has been shown to interfere with the Jendrassik-Aleksey method for measuring total bilirubin. Samples from patients who have taken Naproxen have shown spurious elevation in total bilirubin levels. 55 Because ethnic data is not always readily [...] 15-29 5 Kidney failure <15 (or dialysis) 56 CHOLESTEROL INTERPRETATION: Desirable: Less than 200 MG/DL Borderline-High Risk: 200-239 MG/DL High-Risk: 240 MG/DL and over 57 HDL INTERPRETATION: Undesirable: High Risk: Less than 40 MG/DL Desirable: Low Risk: Greater than 60 MG/DL 58 LDL INTERPRETATION: Low Risk Optimal Level: LDL Less than 100 MG/DL Near or Above Optimal: LDL 100-129 MG/DL Borderline High Risk: LDL 130-159 MG/DL High Risk: LDL 160-189 MG/DL Very High Risk: LDL Greater than 189 MG/DL 59 Lymphopenia % 60 CHOLESTEROL INTERPRETATION: Desirable: Less than 200 MG/DL Borderline-High Risk: 200-239 MG/DL High-Risk: 240 MG/DL and over 61 HDL INTERPRETATION: Undesirable: High Risk: Less than 40 MG/DL Desirable: Low Risk: Greater than 60 MG/DL 62 LDL INTERPRETATION: Low Risk Optimal Level: LDL Less than 100 MG/DL Near or Above Optimal: LDL 100-129 MG/DL Borderline High Risk: LDL 130-159 MG/DL High Risk: LDL 160-189 MG/DL Very High Risk: LDL Greater than 189 MG/DL 63 Anion gap measurement may be of limited value in the presence of any alkalosis, especially in a combined acid base disorder. . 64 Note change in reference range as of 03/17/08. The change was based on recommendations from the [place] [employer]. 65 Please note change in reference range effective 07 . 66 A metabolite of Naproxen, O-desmethylnaproxen, has been shown to interfere with the Jendrassik-Aleksey method for measuring total bilirubin. Samples from patients who have taken Naproxen have shown spurious elevation in total bilirubin levels. 67 * SERUM LEVELS OF PSA MEASURED USING THE JEMAL CORTNEY ACCESS HYBRITECH IMMUNOASSAY SHOULD NOT BE INTERPRETED ABSOLUTE EVIDENCE OF THE PRESENCE OR ABSENCE OF DISEASE. THE PSA VALUE SHOULD BE USED IN CONJUNCTION WITH OTHER PERTINENT CLINICAL DIAGNOSTIC PROCEDURES. 68 CHOLESTEROL INTERPRETATION: Desirable: Less than 200 MG/DL Borderline-High Risk: 200-239 MG/DL High-Risk: 240 MG/DL and over 69 HDL INTERPRETATION: Undesirable: High Risk: Less than 40 MG/DL Desirable: Low Risk: Greater than 60 MG/DL 70 LDL INTERPRETATION: Low Risk Optimal Level: LDL Less than 100 MG/DL Near or Above Optimal: LDL 100-129 MG/DL Borderline High Risk: LDL 130-159 MG/DL High Risk: LDL 160-189 MG/DL Very High Risk: LDL Greater than 189 MG/DL Procedures Date CPT Code Description Status 08/26/2017 71176 EKG Tracing & Interpretation Completed 08/22/2017 62264 ECHO Transthoracic, Real-Time 2D With Doppler And Color Completed Flow 08/22/2017 22192 ECHO Transthoracic, Real-Time 2D With Doppler And Color Completed Flow 07/18/2017 15393 EKG Tracing & Interpretation Completed 07/18/2017 24909 EKG Tracing & Interpretation Completed 03/19/2017 83729 Color Flow Doppler/Interp & Reprt Completed 03/19/2017 58452 Pulse Wave/Continuous-Interp.RPT Completed 03/19/2017 11758 Echocardiography, Transesophageal, Real Time W/Image 2D Completed W/W/O M-M 02/04/2017 41863 ECHO Transthoracic, Real-Time 2D With Doppler And Color Completed Flow 01/06/2017 55753 EKG Tracing & Interpretation Completed 01/24/2016 22050 ECHO Transthoracic, Real-Time 2D With Doppler And Color Completed Flow 12/22/2015 81459 EKG Tracing & Interpretation Completed 02/17/2015 Colonoscopy Completed 12/14/2014 35320 EKG Tracing & Interpretation Completed 12/12/2014 14806 ECHO Transthoracic, Real-Time 2D With Doppler And Color Completed Flow 03/16/2014 13387 Echocardiography, Transesophageal, Real Time W/Image 2D Completed W/W/O M-M 03/16/2014 63534 Color Flow Doppler/Interp & Reprt Completed 03/16/2014 30295 Pulse Wave/Continuous-Interp.RPT Completed 01/10/2014 54520 EKG Tracing & Interpretation Completed 12/27/2013 31687 ECHO Transthoracic, Real-Time 2D With Doppler And Color Completed Flow 06/22/2013 92900 ECHO Transthoracic, Real-Time 2D With Doppler And Color Completed Flow 01/19/2013 48677 ECHO Transthoracic, Real-Time 2D With Doppler And Color Completed Flow 01/08/2013 01521 EKG Tracing & Interpretation Completed 01/01/2012 47376 EKG Tracing & Interpretation Completed 12/26/2011 42847 ECHO Transthoracic, Real-Time 2D With Doppler And Color Completed Flow 05/24/2011 31441 EKG Tracing & Interpretation Completed 05/16/2011 44750 ECHO Transthoracic, Real-Time 2D With Doppler And Color Completed Flow 12/25/2010 44610 EKG Tracing & Interpretation Completed 06/04/2010 43910 Echocardiogram Completed 06/04/2010 88246 ECHO Transthorasic Realtime 2D W Doppler & Color Completed Flow Hosp 06/01/2010 11566 EKG Tracing & Interpretation Completed 02/01/2010 48756 ECHO Stress Test Incl Perf Contiuous ekg Monitoring Completed W/Phys Superv 01/24/2010 92101 ECHO Transthoracic, Real-Time 2D With Doppler And Color Completed Flow 01/15/2010 36938 EKG Tracing & Interpretation Completed 12/26/2009 28315 EKG Tracing & Interpretation Completed 12/19/2009 26120 ECHO Transthoracic, Real-Time 2D With Doppler And Color Completed Flow 04/19/2009 27813 Color Flow Doppler/Interp & Reprt Completed 04/19/2009 70976 Pulse Wave/Continuous-Interp.RPT Completed 04/19/2009 95512 Echocardiography, Transesophageal, Real Time W/Image 2D Completed W/W/O M-M 03/24/2009 47968 Selective Coronary Angioplasty Completed 03/24/2009 62470 S/I/R Inj Proc Vent And Or Atrial Completed 03/24/2009 45570 Coronary Angiography Completed 03/24/2009 55126 Inj Proc LFT Vent/LFT Atrl Angio Completed 03/24/2009 89584 Com RT And LT Catheterization Completed 03/22/2009 53847 EKG Tracing & Interpretation Completed 01/30/2009 13583 ECHO Transthoracic, Real-Time 2D With Doppler And Color Completed Flow 12/30/2006 49390 Color Doppler Completed 12/30/2006 41082 Pulse Doppler & Continuous Wave Completed 12/30/2006 72890 Pulse Doppler & Continuous Wave Completed 12/30/2006 94783 Echocardiogram Completed 02/15/2005 Colonoscopy Completed Encounters Type Date Location Provider CPT E/M Dx Office Visit 08/13/2017 [facility] Matthias Welch, 94869 I25.10 2:20p Vilma Eaton M.D. I73.9 E78.2 J06.9 Office Visit 07/20/2017 10:36a [place] viktoria Linares, 04392 R57.1 Hospitalists N.P[facility] I25.10 I73.9 I10 Office Visit 07/18/2017 10:30a [place] [facility] LINSEY Batista 00047 I73.9 I21.4 I82.491 I10 I48.91 R57.0 Office Visit 07/15/2017 9:00a [facility] Eileen Orr M.D. 55913 I73.9 I82.401 I10 I25.10 I48.91 I50.43 Office Visit 07/11/2017 8:15a [facility] Mel Santiago, ASSOCIATE JAVA DEVELOPER 72231 R04.0 Office Visit 06/02/2017 10:00a [place] [facility] Qutaybeh S. Maghaydah, 53898 Z95.2 M.D. R60.9 I35.0 I73.9 E78.2 Office Visit 01/06/2017 4:00p [place] [facility] Qutaybeh S. Maghaydah, 55157 I35.0 M.D. R60.9 E78.2 I73.9 Office Visit 12/22/2015 10:40a [place] [facility] Qutaybeh S. Maghaydah, 84341 I73.9 M.D. I35.0 I10 E78.2 I25.10 R53.83 R06.02 Office Visit 03/07/2015 9:30a [place] [facility] LINSEY Batista 26420 443.9 424.1 401.1 272.2 Office Visit 12/14/2014 10:00a [place] [facility] Qutaybeh S. Maghaydah, 57172 V42.2 M.D. 424.1 443.9 401.1 272.0 Office Visit 06/01/2014 2:00p [facility] Matthias Welch, 53866 401.1 Vilma Edwards M.D. 272.0 443.9 424.1 790.21 Office Visit 05/19/2014 1:30p [place] [facility] LINSEY Batista 34334 401.0 272.2 443.9 272.0 424.1 Office Visit 04/14/2014 4:00p [place] [facility] Qutaybeh S. Magmario, 56053 424.1 M.D. 414.01 V42.2 401.0 272.2 Office Visit 03/16/2014 8:00a [place] [facility] Qutaybeh S. Maghaestherah, 82439 424.1 M.D. Office Visit 01/10/2014 10:00a [place] [facility] 82556 424.1 M.D. 401.1 414.01 V42.2 443.9 Office Visit 01/08/2013 3:20p [place] [facility], 11224 V42.2 M.D. 272.0 414.01 424.1 Office Visit 04/23/2012 1:20p [facility], 74970 782.1 - Jerry Galindo Office Visit 02/18/2012 10:30a [place] [facility], 03627 401.1 [facility] Office Visit 01/16/2012 10:30a [place] [facility], 59101 401.1 [facility] Office Visit 01/01/2012 3:20p [place] [facility] 95707 401.1 [facility] [place] [place]o Willingham 272.0 414.01 V42.2 424.1 Office Visit 05/24/2011 11:40a [place] [facility], 78343 424.1 M.D. 401.1 414.01 V42.2 272.0 Office Visit 12/25/2010 2:20p [place] [facility], 08422 424.1 M.D. 401.1 414.01 V42.2 Office Visit 06/01/2010 9:00a [place] [facility], 35342 401.1 M.D. 424.1 272.0 414.01 Office Visit 05/02/2010 9:40a DO Not Use [facility], 35226 552.1 [facility] M.D. 401.1 424.1 272.0 Office Visit 02/01/2010 11:20a DO Not Use [facility], 43058 424.1 [facility] M.D. 401.1 272.0 790.21 Office Visit 01/15/2010 3:40p [place] [facility], 18619 424.1 M.D. 414.01 401.1 V42.2 Office Visit 12/26/2009 9:00a [facility] Anntaybeh S. Tatiannaah, 74758 424.1 M.D. 786.05 414.01 Office Visit 04/19/2009 7:00a [facility] Qutaybeh S. Shannanydah, 81320 414.01 M.D. 424.1 401.1 Office Visit 03/30/2009 10:40a [facility] Qutaybeh S. Shannanydah, 42975 424.1 M.D. 414.01 401.1 272.4 746.3 Office Visit 03/24/2009 7:00a [facility] Qutaybeh S. Shannanydrandal, 78698 424.1 M.D. 414.01 401.1 272.4 Office Visit 03/22/2009 10:20a [facility] Anntaybchris S. Tarsha, 11386 746.3 M.D. 401.1 272.0 424.0 785.2 Office Visit 02/14/2009 10:30a [place] [facility], 13977 272.0 [facility] M.D. 746.3 401.1 Office Visit 12/22/2008 2:45p [place] [facility], 84860 424.2 [facility] M.D. 424.0 433.10 459.81 Office Visit 12/31/2007 3:00p [place] [facility], 56430 715.00 [facility] M.D. 272.0 401.1 V03.82 Plan of Care Future Appointment(s):09/11/2017 11:00 am - Nellie Nelson NAdriana at [facility]08/26/2017 - Brandon Willingham M.D.I25.10 Athscl heart disease of tejon coronary artery w/o ang pctrsFollow up:Nellie 2-3 weeks 8 months ov with meI73.9 Peripheral vascular disease, qkqavykmylcI73.0 Nonrheumatic aortic ( valve) aufbpehmQ06.2 Mixed [id number] Acute upper respiratory infection , unspecified
[2017-09-22] MEDS ORDERED: Cefepime 2 GM in Dextrose(*) 2 GM/50 ML BAG IV ONE (17:35)
[2017-09-22] MEDS ORDERED: Azithromycin IV(*) 500 MG in NS 0.9% 250 ML* 250 ML IVPB ONE (17:44)
--- NOTE | 2017-09-22 17:51 | RAD ---
INDICATION: Cough and fever COMPARISON: Most recent comparison chest x-ray September 19, 2017 TECHNIQUE: PA and lateral views of the chest were obtained. FINDINGS: Stable postoperative findings include sternotomy wires and a prostatic aortic valve. The heart and mediastinum are normal in size and contour. There is faint calcification overlying the arch of the aorta. The lungs are grossly clear. There is no evidence of large pleural effusion. Visualized bones are normal for the patient's age. There is no radiographic evidence of free air beneath the diaphragm IMPRESSION: No radiographic evidence of acute cardiopulmonary disease.
[2017-09-22 18:15] LABS: ABS Basophils 0.1 10^3/ul (0-0.2); ABS Eosinophils 0 10^3/ul (0-0.6); ABS Lymphocytes 0.6 10^3/ul (1.0-4.8); ABS Monocytes 0.8 10^3/ul (0-0.8); ABS Neutrophils 9.4 10^3/ul (1.5-7.7); ABS Nucleated RBC 0 10^3/ul; Eosinophil % 0.1 % (0-6); Hematocrit 29 % (42-52); Hemoglobin 10.1 g/dl (14.0-18.0); Lymphocyte % 5.1 % (25-47); Mean Corpuscular HGB Conc 35 g/dl (31-36); Mean Corpuscular Hemoglobin 29 pg (27-31); Mean Corpuscular Volume 84 fL (80-94); Mean Platelet Volume 7 um3 (7.4-10.4); Nucleated Red Blood Cells % 0; Platelet Count 266 10^3/ul (150-450); Red Blood Count 3.46 10^6/ul (4.0-5.4); Red Cell Distribution Width 18 % (10.5-15); White Blood Count 10.9 10^3/ul (3.5-10.8)
[2017-09-22 18:23] LABS: INR 2.37 (0.77-1.02)
[2017-09-22 18:31] LABS: EGFR Non-African American 62.1 (>60)
[2017-09-22] MEDS ORDERED: Aspirin TAB* 325 MG PO ONE (18:43)
--- NOTE | 2017-09-22 20:36 | HP ---
H&P (Free Text) History and Physical: PCP: Gatito Welch MD Cardiology: Rema Willingham MD Date/Time: 09/22/20172044 CC: F/C HPI: Mr Castellon is a 77YO male HX NSTEMI, bladder CA, DVT, AFIB, HTN, & HLD who underwent RLE revascularization at [facility] in May 2017 with subsequent development of an ulcer overlying the R lateral mid-calf which has been slowly improving. However over the previous 2-3 days has had increasing swelling, erythema, and drainage. Additionally he reports increase fatigue, dry cough, & SOB, but no chest pain, change in bowel/bladder, palpitations, or other issues. PMedHx CAD/NSTEMI/LAD stent bovine AVR CHF PAOD s/p L femoral endarterectomy & L iliac stent May 2017 AFIB bladder CA DVT HTN HLD prosthetic eye OS Ambulatory Orders Atorvastatin* [Lipitor*] 40 mg PO QPM 07/20/17 Acetaminophen TAB* [Tylenol TAB*] 650 mg PO Q6H PRN 09/22/17 Cholecalciferol TAB* [Vitamin D TAB*] 1,000 unit PO DAILY 09/22/17 Clopidogrel TAB* [Plavix TAB*] 75 mg PO DAILY 09/22/17 Docusate CAP* [Colace Cap*] 100 mg PO DAILY 09/22/17 Furosemide TAB* [Lasix TAB*] 20 mg PO DAILY 09/22/17 Metoprolol Succinate XL TAB* [Toprol XL TAB*] 100 mg PO DAILY 09/22/17 Pantoprazole TAB (NF) [Protonix TAB (NF)] 40 mg PO DAILY 09/22/17 Warfarin TAB(*) [Coumadin TAB(*)] 2 mg PO .FIVETIMESAWEEK 09/22/17 Warfarin TAB(*) [Coumadin TAB(*)] 4 mg PO .TWICEWEEKLY 09/22/17 Allergies bee venom protein (honey bee) Allergy (Verified 09/22/17 14:52) Anaphylatic Shock PSurgHx L femoral endarterectomy May 2017 L iliac stent May 2017 LAD stent bovine AVR OS enucleation age 18 SocHx: former smoker, alcohol, or recreational drugs; lives with his ; full code status FamHx: positive for CAD, HTN ROS: as above, otherwise reviewed and all were negative vitals: Vital Signs Temp 37.3 C 09/22/17 18:50 Pulse 91 09/22/17 14:50 Resp 22 09/22/17 19:06 BP 128/59 09/22/17 19:06 Pulse Ox 96 09/22/17 14:50 Intake & Output 09/21/17 09/22/17 09/22/17 23:59 11:59 23:59 Intake Total 250 Balance 250 Weight 81.647 kg Intake: IV Fluids 250 Constitutional: NAD, normally developed, overweight white male HEENM: atraumatic; sclera/conjunctiva: OD anicteric/clear, OS prosthetic; hearing: ; oropharynx: clear, mucosa moist Neck: soft tissue: no nuchal rigidity; thyroid: normal Pulmonary: clear to auscultation bilaterally, good aeration, no accessory muscle use CV: RR/RR, normal S1S2, no carotid bruit, no jugular venous distention, 2+ B DP/ PT, no edema Abdominal: soft, non-distended, non-tender, no rebound/guarding/rigidity, normoactive bowel sounds, no hepatosplenomegaly or masses, no costovertebral angle tenderness Musculoskeletal: general: grossly intact with swelling R calf as below Integumental: RLE with ~3.5x1cm stage II ulcer with more anterior 2x1cm area of eschar surrounded by moderate edema and erythema, area is warm to touch and tender with scant purulent discharge, minimal malodor Psychiatric orientation: AA&O to PPS affect: calm mood: cooperative eye contact: good content: reliable responses: timely insight: good Testing: Lab Results 09/22/17 09/22/17 09/22/17 Range/Units 15:28 17:57 17:57 WBC 10.9 H (3.5-10.8) 10^3/ul RBC 3.46 L (4.0-5.4) 10^6/ul Hgb 10.1 L (14.0-18.0) g/dl Hct 29 L (42-52) % MCV 84 (80-94) fL MCH 29 (27-31) pg MCHC 35 (31-36) g/dl RDW 18 H (10.5-15) % Plt Count 266 (150-450) 10^3/ul MPV 7 L (7.4-10.4) um3 Neut % (Auto) 86.5 H (38-83) % Lymph % (Auto) 5.1 L (25-47) % Troup % (Auto) 7.6 H (0-7) % Eos % (Auto) 0.1 (0-6) % Baso % (Auto) 0.7 (0-2) % Absolute Neuts (auto) 9.4 H (1.5-7.7) 10^3/ul Absolute Lymphs (auto) 0.6 L (1.0-4.8) 10^3/ul Absolute Monos (auto) 0.8 (0-0.8) 10^3/ul Absolute Eos (auto) 0 (0-0.6) 10^3/ul Absolute Basos (auto) 0.1 (0-0.2) 10^3/ul Absolute Nucleated RBC 0 10^3/ul Nucleated RBC % 0 INR (Anticoag Therapy) 2.37 H (0.77-1.02) APTT 37.1 H (26.0-36.3) seconds Sodium (133-145) mmol/L Potassium (3.5-5.0) mmol/L Chloride (101-111) mmol/L Carbon Dioxide (22-32) mmol/L Anion Gap (2-11) mmol/L BUN (6-24) mg/dL Creatinine (0.67-1.17) mg/dL Est GFR ( Amer) (>60) Est GFR (Non-Af Amer) (>60) BUN/Creatinine Ratio (8-20) Glucose (70-100) mg/dL Lactic Acid (0.5-2.0) mmol/L Calcium (8.6-10.3) mg/dL Total Bilirubin (0.2-1.0) mg/dL AST (13-39) U/L ALT (7-52) U/L Alkaline Phosphatase (34-104) U/L Troponin I (<0.04) ng/mL Total Protein (6.4-8.9) g/dL Albumin (3.2-5.2) g/dL Globulin (2-4) g/dL Albumin/Globulin Ratio (1-3) Influenza A (Rapid) Negative (Negative) Influenza B (Rapid) Negative (Negative) 09/22/17 09/22/17 Range/Units 17:57 17:57 WBC (3.5-10.8) 10^3/ul RBC (4.0-5.4) 10^6/ul Hgb (14.0-18.0) g/dl Hct (42-52) % MCV (80-94) fL MCH (27-31) pg MCHC (31-36) g/dl RDW (10.5-15) % Plt Count (150-450) 10^3/ul MPV (7.4-10.4) um3 Neut % (Auto) (38-83) % Lymph % (Auto) (25-47) % Troup % (Auto) (0-7) % Eos % (Auto) (0-6) % Baso % (Auto) (0-2) % Absolute Neuts (auto) (1.5-7.7) 10^3/ul Absolute Lymphs (auto) (1.0-4.8) 10^3/ul Absolute Monos (auto) (0-0.8) 10^3/ul Absolute Eos (auto) (0-0.6) 10^3/ul Absolute Basos (auto) (0-0.2) 10^3/ul Absolute Nucleated RBC 10^3/ul Nucleated RBC % INR (Anticoag Therapy) (0.77-1.02) APTT (26.0-36.3) seconds Sodium 126 L (133-145) mmol/L Potassium 4.4 (3.5-5.0) mmol/L Chloride 94 L (101-111) mmol/L Carbon Dioxide 24 (22-32) mmol/L Anion Gap 8 (2-11) mmol/L BUN 19 (6-24) mg/dL Creatinine 1.14 (0.67-1.17) mg/dL Est GFR ( Amer) 79.9 (>60) Est GFR (Non-Af Amer) 62.1 (>60) BUN/Creatinine Ratio 16.7 (8-20) Glucose 142 H (70-100) mg/dL Lactic Acid 1.7 (0.5-2.0) mmol/L Calcium 9.2 (8.6-10.3) mg/dL Total Bilirubin 1.00 (0.2-1.0) mg/dL AST 15 (13-39) U/L ALT 16 (7-52) U/L Alkaline Phosphatase 67 (34-104) U/L Troponin I 0.08 H* (<0.04) ng/mL Total Protein 7.4 (6.4-8.9) g/dL Albumin 3.5 (3.2-5.2) g/dL Globulin 3.9 (2-4) g/dL Albumin/Globulin Ratio 0.9 L (1-3) Influenza A (Rapid) (Negative) Influenza B (Rapid) (Negative) ECG, personally reviewed: ordered, pending CXR, personally reviewed: IMPRESSION: No radiographic evidence of acute cardiopulmonary disease. Impression: 77M presenting with F/C 2nd to RLE wound infection & mild bronchitis DIAGNOSIS & PLAN Primary RLE wound infection : MSSA positive, MRSA negative : cefepime 2gm IV Q12H : blood & wound CXs : pain control : supportive care elevated troponin : HX CAD/NSTEMI/LAD stent : suspect demand ischemia : telemetry : trend : aspirin : continue metoprolol & clopidogrel : supplemental oxygen hypoNatremia, suspect volume depletion : cautious IVFs given HX CHF, trend bronchitis : azithromycin 500mg IV x 1 dose given in ED, no further ABX warranted : anti-tussive : monitor Secondary s/p bovine AVR : no acute issues PAOD/HLD : s/p L femoral endarterectomy & L iliac stent May 2017 : continue atorvastatin CHF : hold furosemide : strict I&Os : daily weights AFIB : continue metoprolol & warfarin bladder CA : continue outpatient surveillance DVT : continue warfarin HTN : continue metoprolol GERD : continue pantoprazole prosthetic eye OS : no acute issues Admission Rational: inpatient for cellulitis w/ associated arterial ulcer of RLE requiring IV ABX; inappropriate for outpatient setting DVTp: continue warfarin Code Status: full HCP:
[2017-09-22] MEDS ORDERED: CMCS: Melatonin (NF) 3 MG TAB PO PRN (21:50)
[2017-09-22] MEDS ORDERED: Albuterol 2.5 MG/3 ML NEB.SOL* (0.083%) INH PRN (21:50)
[2017-09-22] MEDS ORDERED: Ondansetron INJ* 2 MG/ML VIAL IV PRN (21:51)
[2017-09-22] MEDS ORDERED: Benzonatate CAP* 100 MG PO PRN (21:55)
[2017-09-22] MEDS: Warfarin TAB(*) 2 MG PO SCH (22:40)
[2017-09-22] MEDS: Atorvastatin* 40 MG TAB PO SCH (22:40)
[2017-09-22] MEDS: Acetaminophen TAB* 325 MG PO PRN (23:56)
[2017-09-23 00:23] LABS: Urine Appearance Cloudy; Urine Blood 2+ (Negative); Urine Color Amber; Urine Ketones Trace (Negative); Urine Protein 1+(30 mg/dL) (Negative); Urine Specific Gravity 1.025 (1.010-1.030); Urine Urobilinogen Negative (Negative)
[2017-09-23] MEDS ORDERED: Cefepime(*) 1 GM in NS 0.9% 50 ML* 50 ML IVPB SCH (06:00)
[2017-09-23 06:18] LABS: EGFR Non-African American 71.4 (>60)
[2017-09-23] MEDS: Clopidogrel TAB* 75 MG PO SCH (08:44)
[2017-09-23] MEDS: Docusate CAP* 100 MG PO SCH (08:44)
[2017-09-23] MEDS: Metoprolol Succinate XL TAB* 100 MG PO SCH (08:44)
[2017-09-23] MEDS: CMCS: Pantoprazole TAB (NF) 40 MG TAB PO SCH (08:44)
[2017-09-23] MEDS: Acetaminophen TAB* 325 MG PO PRN ×3 (08:50→21:42)
[2017-09-23] MEDS ORDERED: Furosemide TAB* 20 MG PO SCH (09:00)
[2017-09-23] MEDS ORDERED: Cefepime(*) 1 GM in PREMIX* 50 ML IVPB SCH (09:03)
--- NOTE | 2017-09-23 14:25 | ED ---
Jean-Paul Liu Angela, scribed for Shyam Gayle MD on 09/22/17 at 1736 . Complex/Multi-Sys Presentation - HPI Summary HPI Summary: This pt is a 77 [facility], chills, cough, and SOB. Pt also reports nausea and decreased appetite. He additionally notes the wound on his right leg has been draining s/p femoral artery stent. He notes it is difficult to bear weight on right leg due to pain. Pt states he had a femoral artery stent placed on 06/27/17 in [facility]. Pt was scheduled to have an ultrasound of his leg today but states they weren't able to find the vein in the sonogram. Per , pt had a panic attack and his blood pressure increased. Pt was at [facility] 3 days ago for a chest XR and labs. - History Of Current Complaint Chief Complaint: EDFluSymptoms Time Seen by Provider: 09/22/17 17:20 Hx Obtained From: Patient Onset/Duration: Lasting Hours, Still Present Timing: Constant, Hours Severity Initially: Moderate Location: Pain At: - right leg Aggravating Factor(s): nothing Alleviating Factor(s): nothing Associated Signs And Symptoms: Positive: SOB, Cough, Nausea, Fever, Other - POS : decreased appetite, right leg pain. NEG: body aches. Negative: Vomiting - Allergies/Home Medications Allergies/Adverse Reactions: Allergies Allergy/AdvReac Type Severity Reaction Status Date / Time bee venom protein (honey bee) Allergy Anaphylatic Verified 09/22/17 14:52 Shock PMH/Surg Hx/FS Hx/Imm Hx Cardiovascular History: Reports: Hx Congestive Heart Failure, Hx Hypertension, Hx Myocardial Infarction, Other Cardiovascular Problems/Disorders - aortic v. replacement GI History: Denies: Hx Cirrhosis Musculoskeletal History: Reports: Other Musculoskeletal History - osteo- arthritis - Cancer History Cancer Type, Location and Year: bladder Hx Chemotherapy: Yes - Surgical History Surgery Procedure, Year, and Place: aorta v. replacement, appendectomy, bilat. inguinal hernia repairs Infectious Disease History: No Infectious Disease History: Denies: Traveled Outside the [place] in Last 30 Days - Family History Known Family History: Positive: Cardiac Disease - Mother: [place] - Social History Alcohol Use: None Substance Use Type: Reports: None Smoking Status (MU): Former Smoker Review of Systems Constitutional: Other - decreased appetite Positive: Fever, Chills Negative: Erythema Negative: Sore Throat Negative: Chest Pain Positive: Shortness Of Breath, Cough Positive: Nausea. Negative: Abdominal Pain, Vomiting Negative: dysuria, hematuria Musculoskeletal: Other - right leg pain Negative: Myalgia, Edema Skin: Other - right leg hematoma Negative: Rash Neurological: Other - NEG: dizziness All Other Systems Reviewed And Are Negative: Yes Physical Exam - Summary Physical Exam Summary: Constitutional: Well-developed, Well-nourished, Alert. (-) Distressed Skin: Warm, Dry HENT: Normocephalic; Atraumatic Eyes: Conjunctiva normal Neck: Musculoskeletal ROM normal neck. (-) JVD, (-) Stridor, (-) Tracheal deviation Cardio: Rhythm regular, rate normal, Heart sounds normal; Intact distal pulses; The pedal pulses are 2+ and symmetric. Radial pulses are 2+ and symmetric. (-) Murmur Pulmonary/Chest wall: Effort normal. (-) Respiratory distress, (-) Wheezes, (-) Rales. Crackles in the left lower lung base. Abd: Soft, (-) Tenderness, (-) Distension, (-) Guarding, (-) Rebound Musculoskeletal: RLE: There is an ulcerated area approximately 1 cm on right lateral calf oozing purulent material surrounded by erythema and edema which is 1+ pitting. There is generalized pitting edema bilaterally. Lymph: (-) Cervical adenopathy Neuro: Alert, Oriented x3 Psych: Mood and affect Normal Triage Information Reviewed: Yes Vital Signs On Initial Exam: Initial Vitals Temp Pulse Resp BP Pulse Ox 98.3 F 91 16 181/79 96 09/22/17 14:50 09/22/17 14:50 09/22/17 14:50 09/22/17 14:50 09/22/17 14:50 Vital Signs Reviewed: Yes Diagnostics - Vital Signs Vital Signs Temp Pulse Resp BP Pulse Ox 09/22/17 14:50 98.3 F 91 16 181/79 96 - Laboratory Lab Results: Lab Results 09/22/17 Range/Units 15:28 Influenza A (Rapid) Negative (Negative) Influenza B (Rapid) Negative (Negative) Result Diagrams: 09/22/17 17:57 09/22/17 17:57 Lab Statement: Any lab studies that have been ordered have been reviewed, and results considered in the medical decision making process. - Radiology Chest XR Xray Interpretation: No Acute Changes - IMPRESSION: No radiographic evidence of acute cardiopulmonary disease. Dr. Gayle has reviewed this radiology report. Radiology Interpretation Completed By: Radiologist Kathy Multi-Symp Course/Dx Course Of Treatment: In the ED course the pt was given Zithromax and Maxipime. Lab work and chest XR were obtained. Test results show hemoglobin of 10.1, hematocrit of 29, sodium of 126, chloride of 94, glucose of 142, troponin of 0.08. Chest XR is negative. I discussed pt care with Dr. Nazario, hospitalist, who has agreed to admit the pt. - Diagnoses Provider Diagnoses: Pneumonia, Cellulitis of right leg, Elevated troponin - Physician Notifications Discussed Care Of Patient With: Gerardo Nazario Time Discussed With Above Provider: 19:00 Instructed by Provider To: Other - I discussed pt care with Dr. Nazario, hospitalist, who has agreed to admit the pt. Discharge - Discharge Plan Condition: Stable Disposition: ADMITTED TO [facility] Referrals: Matthias Welch MD [Primary Care Provider] - The documentation as recorded by the Jean-Paul frank Angela accurately reflects the service I personally performed and the decisions made by Irwin boone Jerry, MD.
[2017-09-23] MEDS: Warfarin TAB(*) 2 MG PO SCH (17:32)
[2017-09-23] MEDS: Cefepime(*) 1 GM in PREMIX* 50 ML IVPB SCH (18:05)
[2017-09-23] MEDS: Atorvastatin* 40 MG TAB PO SCH (18:05)
--- NOTE | 2017-09-23 18:50 | PN ---
Subjective Date of Service: 09/23/17 Interval History: Seen with at bedside Pain in right LE mostly over area of hematoma Feels wound is healing and less red Denies SOB, CP, LH, N/V but did have episode of nausea prior to lunch associated with chills. Blood cultures returned positive shortly after this event. Objective Active Medications: Acetaminophen (Tylenol Tab*) 650 mg PO Q6H PRN PRN Reason: FEVER/PAIN Last Admin: 09/23/17 14:09 Dose: 650 mg Albuterol (Ventolin 2.5 Mg/3 Ml Neb.Juany*) 2.5 mg INH Q2H PRN PRN Reason: SOB/WHEEZING Atorvastatin Calcium (Lipitor*) 40 mg PO QPM [facility] Last Admin: 09/23/17 18:05 Dose: 40 mg Benzonatate (Tessalon Cap*) 100 mg PO BID PRN PRN Reason: COUGH Clopidogrel Bisulfate (Plavix Tab*) 75 mg PO DAILY [facility] Last Admin: 09/23/17 08:44 Dose: 75 mg Docusate Sodium (Colace Cap*) 100 mg PO DAILY [facility] Last Admin: 09/23/17 08:44 Dose: 100 mg Sodium Chloride (Ns 0.9% 1000 Ml*) 1,000 mls @ 100 mls/hr IV PER RATE [facility] Cefepime HCl 1 gm/ IV Solution 50 mls @ 100 mls/hr IVPB 0600,1800 [facility] Last Admin: 09/23/17 18:05 Dose: 100 mls/hr Melatonin (Melatonin (Nf)) 3 mg PO BEDTIME PRN; Protocol PRN Reason: Sleep Metoprolol Succinate (Toprol Xl Tab*) 100 mg PO DAILY [facility] Last Admin: 09/23/17 08:44 Dose: 100 mg Ondansetron HCl (Zofran Inj*) 4 mg IV Q6H PRN PRN Reason: NAUSEA Pantoprazole Sodium (Protonix Tab (Nf)) 40 mg PO DAILY [facility] Last Admin: 09/23/17 08:44 Dose: 40 mg Tramadol HCl (Ultram*) 50 mg PO Q6H PRN PRN Reason: PAIN Warfarin Sodium (Coumadin Tab(*)) 2 mg PO MoTuWeFrSa@1700 [facility] PRN Reason: Protocol Last Admin: 09/23/17 17:32 Dose: 2 mg Warfarin Sodium (Coumadin Tab(*)) 4 mg PO SuTh@1700 [facility] PRN Reason: Protocol Vital Signs - 8 hr 09/23/17 09/23/17 09/23/17 11:22 13:00 15:26 Temperature 98.4 F 100.4 F 98.4 F Pulse Rate 69 75 Respiratory 18 18 Rate Blood Pressure 126/52 126/58 (mmHg) O2 Sat by Pulse 96 96 Oximetry Oxygen Devices in Use Now: None Appearance: NAD Eyes: No Scleral Icterus, PERRLA Ears/Nose/Mouth/Throat: NL Teeth, Lips, Gums, Clear Oropharnyx Neck: NL Appearance and Movements; NL JVP, Trachea Midline Respiratory: Symmetrical Chest Expansion and Respiratory Effort, Clear to Auscultation Cardiovascular: RRR Abdominal: NL Sounds; No Tenderness; No Distention, No Hepatosplenomegaly Lymphatic: No Cervical Adenopathy Extremities: No Clubbing, Cyanosis, - - +le edema Skin: - - right calf with hematoma that is TTP, approx 2cm open wound with scant not purulent discharge Neurological: Alert and Oriented x 3, - - cn2-12 intact Result Diagrams: 09/22/17 17:57 09/23/17 05:21 Additional Lab and Data: Lab Results 09/22/17 Range/Units 15:28 Influenza A (Rapid) Negative (Negative) Influenza B (Rapid) Negative (Negative) Assess/Plan/Problems-Billing Assessment: 77 yo M h/o CAD, afib, AV replacement, PAOD sp left femoral endarterectomy and iliac stent in 05/2017 p/w chills/rigors that developed during imaging as outpatient found with MSSA on right leg ulcer and now +GPC in blood - Patient Problems (1) Bacteremia Comment: GPC. Speciation pending. Not MSSA/MRSA C/w cefepime normal saline 100cc/hr HOLDING lasix. restart as necessary (2) Ulcer Comment: MSSA cefepime as above (3) A-fib Comment: amiodarone, metoprolol, coumadin (4) DVT prophylaxis Comment: coumadin
[2017-09-23] MEDS: NS 0.9% 1000 ML* 1,000 ML IV SCH (21:43)
[2017-09-24] MEDS: Cefepime(*) 1 GM in PREMIX* 50 ML IVPB SCH (05:12)
[2017-09-24 08:52] LABS: ABS Basophils 0 10^3/ul (0-0.2); ABS Eosinophils 0 10^3/ul (0-0.6); ABS Lymphocytes 0.8 10^3/ul (1.0-4.8); ABS Monocytes 0.8 10^3/ul (0-0.8); ABS Neutrophils 8.7 10^3/ul (1.5-7.7); ABS Nucleated RBC 0 10^3/ul; Eosinophil % 0.3 % (0-6); Hematocrit 26 % (42-52); Hemoglobin 8.9 g/dl (14.0-18.0); Lymphocyte % 7.6 % (25-47); Mean Corpuscular HGB Conc 34 g/dl (31-36); Mean Corpuscular Hemoglobin 28 pg (27-31); Mean Corpuscular Volume 84 fL (80-94); Mean Platelet Volume 7 um3 (7.4-10.4); Nucleated Red Blood Cells % 0; Platelet Count 230 10^3/ul (150-450); Red Blood Count 3.14 10^6/ul (4.0-5.4); Red Cell Distribution Width 18 % (10.5-15); White Blood Count 10.4 10^3/ul (3.5-10.8)
[2017-09-24 08:59] LABS: INR 2.56 (0.77-1.02)
[2017-09-24 09:08] LABS: EGFR Non-African American 81.6 (>60)
[2017-09-24] MEDS: Clopidogrel TAB* 75 MG PO SCH (09:19)
[2017-09-24] MEDS: Amiodarone TAB* 200 MG PO SCH (09:19)
[2017-09-24] MEDS: Metoprolol Succinate XL TAB* 100 MG PO SCH (09:19)
[2017-09-24] MEDS: CMCS: Pantoprazole TAB (NF) 40 MG TAB PO SCH (09:19)
[2017-09-24] MEDS: Docusate CAP* 100 MG PO SCH (09:20)
[2017-09-24] MEDS: Acetaminophen TAB* 325 MG PO PRN ×3 (09:26→22:45)
[2017-09-24] MEDS: NS 0.9% 1000 ML* 1,000 ML IV SCH (09:26)
--- NOTE | 2017-09-24 10:36 | PN ---
Subjective Date of Service: 09/24/17 Interval History: Pt is feeling ok. He is anxious to go home. He is discouraged when I relay my concerns to him. He c/o pain in the R calf and notes it has been markedly swollen around the R calf wound for some time. He denies any SOB. He does have a slight cough with scant mucous. He has not been walking around much. Objective Active Medications: Acetaminophen (Tylenol Tab*) 650 mg PO Q6H PRN PRN Reason: FEVER/PAIN Last Admin: 09/24/17 09:26 Dose: 650 mg Albuterol (Ventolin 2.5 Mg/3 Ml Neb.Juany*) 2.5 mg INH Q2H PRN PRN Reason: SOB/WHEEZING Amiodarone HCl (Cordarone Tab*) 200 mg PO DAILY [facility] Last Admin: 09/24/17 09:19 Dose: 200 mg Atorvastatin Calcium (Lipitor*) 40 mg PO QPM [facility] Last Admin: 09/23/17 18:05 Dose: 40 mg Benzonatate (Tessalon Cap*) 100 mg PO BID PRN PRN Reason: COUGH Clopidogrel Bisulfate (Plavix Tab*) 75 mg PO DAILY [facility] Last Admin: 09/24/17 09:19 Dose: 75 mg Docusate Sodium (Colace Cap*) 100 mg PO DAILY [facility] Last Admin: 09/24/17 09:20 Dose: Not Given Sodium Chloride (Ns 0.9% 1000 Ml*) 1,000 mls @ 100 mls/hr IV PER RATE [facility] Last Admin: 09/24/17 09:26 Dose: 100 mls/hr Cefepime HCl 1 gm/ IV Solution 50 mls @ 100 mls/hr IVPB 0600,1800 [facility] Last Admin: 09/24/17 05:12 Dose: 100 mls/hr Melatonin (Melatonin (Nf)) 3 mg PO BEDTIME PRN; Protocol PRN Reason: Sleep Metoprolol Succinate (Toprol Xl Tab*) 100 mg PO DAILY [facility] Last Admin: 09/24/17 09:19 Dose: 100 mg Ondansetron HCl (Zofran Inj*) 4 mg IV Q6H PRN PRN Reason: NAUSEA Pantoprazole Sodium (Protonix Tab (Nf)) 40 mg PO DAILY [facility] Last Admin: 09/24/17 09:19 Dose: 40 mg Tramadol HCl (Ultram*) 50 mg PO Q6H PRN PRN Reason: PAIN Warfarin Sodium (Coumadin Tab(*)) 2 mg PO MoTuWeFrSa@1700 [facility] PRN Reason: Protocol Last Admin: 09/23/17 17:32 Dose: 2 mg Warfarin Sodium (Coumadin Tab(*)) 4 mg PO SuTh@1700 [facility] PRN Reason: Protocol Vital Signs - 8 hr 09/24/17 09/24/17 09/24/17 04:19 06:47 08:04 Temperature 98.4 F 98.1 F Pulse Rate 70 64 Respiratory 16 16 16 Rate Blood Pressure 132/63 116/51 (mmHg) O2 Sat by Pulse 99 96 Oximetry Oxygen Devices in Use Now: None Appearance: Elderly male seen lying in bed, NAD Eyes: No Scleral Icterus Ears/Nose/Mouth/Throat: Mucous Membranes Moist Respiratory: Symmetrical Chest Expansion and Respiratory Effort, - - few LLL Crackles Cardiovascular: NL Sounds; No Murmurs; No JVD, RRR, - Abdominal: NL Sounds; No Tenderness; No Distention Extremities: No Clubbing, Cyanosis Skin: - - small ulceration to R lateral calf, mild surrounding erythema, significant induration anterior to the wound. Neurological: Alert and Oriented x 3 Result Diagrams: 09/24/17 08:32 09/24/17 08:32 Additional Lab and Data: Lab Results 09/22/17 Range/Units 15:28 Influenza A (Rapid) Negative (Negative) Influenza B (Rapid) Negative (Negative) Assess/Plan/Problems-Billing 77 yo M h/o CAD, afib, AV replacement, PAD sp left femoral endarterectomy and iliac stent in 05/2017 who presented with chills and rigors that developed during imaging as outpatient. - Patient Problems (1) Bacteremia Current Visit: Yes Status: Acute Code(s): R78.81 - BACTEREMIA SNOMED Code( s): 1233432 Comment: 3 of 4 bottles positive for S epidermidus. Given his h/o AVR will get ID consult, TTE and repeat blood cultures. Will change to cefazolin for now. Await further recommendations from Dr. Le. (2) Ulcer Current Visit: Yes Status: Acute Code(s): YND2287 - SNOMED Code(s): 525788921 Comment: The patient has a chronic ulceration the R lateral calf. It has been present for several months (dating back to 05/2017). Culture grew MSSA. Will await recommendations from Dr. Le. Continue cefazolin as above. (3) Hyponatremia Current Visit: Yes Status: Acute Code(s): E87.1 - HYPO-OSMOLALITY AND HYPONATREMIA SNOMED Code(s): 21230348 Comment: The patient's Na is slowly improving. Likely down secondary to volume depletion. Continue to follow. (4) A-fib Current Visit: Yes Status: Acute Code(s): I48.91 - UNSPECIFIED ATRIAL FIBRILLATION SNOMED Code(s): 78627111 Comment: Pt is in NSR. Continue amiodarone, metoprolol and coumadin. (5) H/O deep venous thrombosis Current Visit: Yes Status: Acute Code(s): Z86.718 - PERSONAL HISTORY OF OTHER VENOUS THROMBOSIS AND EMBOLISM SNOMED Code(s): 495415345 Comment: Pt remains on coumadin with therpeutic INR. (6) CAD (coronary artery disease) Current Visit: Yes Status: Acute Code(s): I25.10 - ATHSCL HEART DISEASE OF [place] CORONARY ARTERY W/O ANG PCTRS SNOMED Code(s): 83712411 Comment: The patient has a h/o CAD with cardiogenic shock post L iliac stenting 05/2017. Trop this admission mildly elevated. Likely secondary to demand ischemia. Echo ordered. No c/o chest pain. Will not work up further at this time. (7) DVT prophylaxis Current Visit: Yes Status: Acute Code(s): PQP0212 - SNOMED Code(s): 477072314 Comment: therapeutic INR (8) Full code status Current Visit: Yes Status: Acute Code(s): Z78.9 - OTHER SPECIFIED HEALTH STATUS SNOMED Code(s): 878785901
[2017-09-24] MEDS ORDERED: CEFAZOLIN IVPB SCH (11:00)
[2017-09-24] MEDS ORDERED: NS 0.9% IVPB SCH (11:00)
--- NOTE | 2017-09-24 11:17 | RAD ---
HISTORY: Evaluate for abscess of right lateral calf, soft tissue swelling COMPARISONS: None relevant TECHNIQUE: Multiple transverse and longitudinal ultrasound images were obtained of the area of clinical abnormality of the right lateral calf using grayscale and color Doppler imaging. FINDINGS: There is extensive soft tissue edema. There is loculated fluid collection within the area of clinical abnormality measuring 3.1 x 1 x 2.8 cm in size. IMPRESSION: LOCULATED FLUID COLLECTION CONCERNING FOR ABSCESS MEASURING 3.1 CM IN SIZE IN THE AREA OF CLINICAL ABNORMALITY OF THE RIGHT LATERAL CALF.
[2017-09-24] MEDS: ceFAZolin 1 GM VIAL(*) 1 GM in NS 0.9% 50 ML* 50 ML IVPB SCH ×3 (13:29→22:41)
--- NOTE | 2017-09-24 16:19 | ECHO ---
Patient: JOSE JUAN CHOE [facility] Rec#: [id number] : 1940 Date: 09/24/2017 Age: 77y Height: 170.18 cm / 67.0 in Weight: 84.82 kg / 186.9 lbs Sex: M BSA: 1.97 Room#: 453 Admit Date#: 09/22/2017 Type: Inpatient Referring: Eileen Orr DO Reading: Monique Johnson MD Coffee Sommelier: Radha Torrez RDCS CC: Brandon Willingham MD CC: Matthias Welch MD Transthoracic Echocardiogram Indication: Bacteremia BP: 116/51 HR: 60 Rhythm: NSR Findings History: +BC S. epidermis, hyponatremia, DVT, A-fib, CAD, s/p left Iliac stenting, NSTEMI, cardiogenic shock 06/13, s/p AVR 2009. Technical Comments: The study quality is fair. The study is technically limited due to patient body habitus. Completed at 1530. Left Ventricle: The left ventricular chamber size is normal. Moderate concentric left ventricular hypertrophy is observed. There is a focal wall motion abnormality present.Base of the posterior wall is relatively hypokinetic on long and short axis views and 2 chamber view. There is mild to moderately decreased left ventricular systolic function. The estimated ejection fraction is 45-50%. Post surgical hypokinesis of the interventricular septum is observed consistent with valve replacement. The left ventricular diastolic filling pattern is consistent with pseudonormalization. The left ventricular diastolic filling pattern is consistent with elevated left ventricular end-diastolic pressure. Left Atrium: The left atrium is moderate to severely dilated. Right Ventricle: Moderator Band present. The right ventricle is mild to moderately dilated. The right ventricular global systolic function is mildly reduced. Right Atrium: The right atrium is moderately dilated. Aortic Valve: There is trace to mild aortic regurgitation. There is mild to moderate aortic stenosis. The mean gradient of the aortic valve is 25.57 mmHg. The peak instantaneous gradient of the aortic valve is 43.51 mmHg. The aortic valve area, by peak velocities, is calculated at 0.8 cm2. The aortic valve area, by VTI's, is calculated at 0.8 cm2. A bio-prosthetic aortic valve is present. The prosthetic aortic valve leaflets are thickened. NCC moves well, RCC and LCC immobile/severely decreased excursion. Mitral Valve: There is mitral annular calcification. The mitral valve leaflets are moderately thickened. There is moderate mitral regurgitation. No vegetation is observed on the mitral valve. Tricuspid Valve: The tricuspid valve leaflets are mildly thickened. There is moderate tricuspid regurgitation. The right ventricular systolic pressure is estimated at 61 mmHg. There is evidence of severe pulmonary hypertension. There is no tricuspid stenosis. No vegetation is observed on the tricuspid valve. Pulmonic Valve: The pulmonic valve appears normal. There is mild pulmonic regurgitation. There is no pulmonic stenosis. No vegetation is observed on the pulmonic valve. Pericardium: There is no significant pericardial effusion. A pericardial fat pad is visualized. Aorta: There is no dilatation of the ascending aorta. The aortic arch is not well visualized. The aortic root is normal in size. Pulmonary Artery: The main pulmonary artery appears normal. Venous: The inferior vena cava is dilated. There is less than 50% respiratory change in the inferior vena cava dimension. Conclusions Moderate concentric left ventricular hypertrophy is observed. There is a focal wall motion abnormality present.Base of the posterior wall is relatively hypokinetic on long and short axis views and 2 chamber view. The estimated ejection fraction is 45-50%. The left ventricular diastolic filling pattern is consistent with pseudonormalization with elevated LVEDP. The right ventricular global systolic function is mildly reduced. The prosthetic aortic valve leaflets are thickened. NCC moves well, RCC and LCC immobile/severely decreased excursion. There is trace to mild aortic regurgitation. There is mild to moderate aortic stenosis. The mean gradient of the aortic valve is 25.57 mmHg. There is mitral annular calcification. The mitral valve leaflets are moderately thickened. There is moderate tricuspid regurgitation. There is evidence of severe pulmonary hypertension: 61 mmHg. No vegetations noted on any valve. Compared with CARTER of 03/19/17, prosthetic as was mild, AI stable, MR was mild, TR has increased from trace, elevated PA pressure newly noted. EF has decreased and wall motion abnormality newly described. Consider CARTER (transesophogeal echo) for more definitive evaluation for vegetations if clinically indicated. Measurements Name Value Normal Range RVIDd (AP) 2D 3.2 cm (0.9 - 2.6) RVDdMajor (2D) 5 cm (2.2 - 4.4) RAd ISD 4CH 5.7 cm (3.4 - 4.9) RA (A4C)W 4.2 cm (2.9 - 4.6) IVSd (2D) 1.5 cm (0.6 - 1) LVPWd (2D) 1.3 cm (0.6 - 1) LVIDd (2D) 4.4 cm (3.6 - 5.4) LVIDs (2D) 4.3 cm - LV FS (2D) 3 % (25 - 45) Aortic Annulus 1.3 cm (1.4 - 2.6) Ao root diameter (2D) 3.4 cm (2.1 - 3.5) Ascending Ao 2.9 cm (2.1 - 3.4) LA dimension (AP) 2D 5 cm (2.3 - 3.8) LAd ISD 4CH 6.6 cm (2.9 - 5.3) LA ISD 4CH W 5 cm (2.5 - 4.5) Name Value Normal Range LA ESV SP 4CH (A/L) 86 ml - LA ESV SP 2CH (A/L) 94 ml - LA ESV BP (A/L) 95 ml - LA ESV BP (A/L) index 48 ml/m2 - LA ESV SP 4CH (MOD) 80 ml - LA ESV SP 2CH (MOD) 90 ml - Name Value Normal Range MV E-wave Vmax 1.35 m/sec - MV deceleration time 185.5 msec - MV A-wave Vmax 0.35 m/sec - MV E:A ratio 3.87 ratio - LV septal e' Vmax 0.06 m/sec - LV lateral e' Vmax 0.06 m/sec - LV E:e' septal ratio 22.5 ratio - LV E:e' lateral ratio 22.5 ratio - Name Value Normal Range AV Vmax 3.3 m/sec - AV VTI 73.7 cm - AV peak gradient 43.51 mmHg - AV mean gradient 25.57 mmHg - LVOT diameter 2 cm - LVOT Vmax 0.84 m/sec - LVOT VTI 19 cm - LVOT peak gradient 2.85 mmHg - LVOT mean gradient 1.87 mmHg - DOI (VTI) 0.26 ratio - MANDI (continuity Vmax) 0.8 cm2 - MANDI (continuity VTI) 0.8 cm2 - Name Value Normal Range MR Vmax 5.96 m/sec - MR VTI 173.7 cm - MR volume (PISA) 33 ml - MR flow (PISA) 106.33 ml/sec - MR ERO 0.18 cm2 - MR PISA radius 0.7 cm - MR alias Vmax 37.1 cm/sec - Name Value Normal Range TR Vmax 3.4 m/sec - TR peak gradient 46 mmHg - RAP 15 mmHg - RVSP 61 mmHg - IVC diameter 2.6 cm - Name Value Normal Range PV Vmax 0.85 m/sec - PV peak gradient 2.91 mmHg - [place] end-diastolic Vmax 1.3 m/sec -
[2017-09-24] MEDS: Atorvastatin* 40 MG TAB PO SCH (17:25)
[2017-09-24] MEDS: Warfarin TAB(*) 2 MG PO SCH (17:25)
--- NOTE | 2017-09-24 19:26 | CONS ---
CC: Dr. Matthias Welch; Dr. Willingham; Dr. Garland, Vascular Surgery * SURGICAL CONSULTATION REPORT: DATE OF CONSULT: The patient was seen on 09/24/17 in room 453. HISTORY OF PRESENT ILLNESS: I was contacted by the hospitalist service to evaluate Mr. Castellon, a 77-year-old gentleman, who was admitted on 09/22/17 with a right lower extremity wound infection as well as elevated troponins. The patient was sent for an outpatient vascular study to identify the patency of a stent in his left lower extremity when the sonographers had a difficult time identifying the stent; it took approximately 45 minutes and the patient got somewhat anxious and went into what sounds like some sort of panic attack. He was sent to the emergency room and admitted for the above diagnosis. The patient had undergone a left femoral endarterectomy and left iliac stent placement in May of last year. The results of this study only discussed the ABIs of bilateral lower extremities noting poor values with a right KIRSTEN of 0.4. It is unclear if Vascular Surgery was contacted. The patient was admitted , started on Ancef, maintained on the patient's Plavix and Coumadin. Early today, the patient was sent for a soft tissue ultrasound of the right calf where a loculated fluid collection concerning for abscess measuring approximately 3 cm was identified. These images as well as report was reviewed. When I saw the patient, his is there, he was sitting in chair, comfortable. He described having swollen right lower extremity for quite some time. He has had a wound on the lateral aspect of his right lower leg for over a month now and this was seen by other doctors and felt to be improving. I was felt to be a hematoma at one point. The patient describes having pain at this site. The wound care now has just been a covered dressing. The patient has not been seen at the wound center for this purpose. PAST MEDICAL HISTORY: Briefly reviewed. REVIEW OF SYSTEMS: No fevers. No chills. According to hospitalist, he has had rigors. His T-max in the hospital has been 100.4. Cardiac disease is seen on his medical record. The patient does suffer with claudication. He is on warfarin. No bleeding or clotting disorders. The patient does have AFib. The patient ambulates without a walker, follows with his . Does not exercise. PHYSICAL EXAMINATION: On physical exam today, he is afebrile. Vital signs are stable. He is alert and oriented x3. He is in no apparent distress. Focused examination of the right lower extremity reveals a 3 x 1 x 0.5 cm open wound with surrounding cellulitis and significant edema extending to the foot. This wound is on the lateral aspect of the upper calf on the right. This was probed with a swab and a pocket of pus entered. Pus was drained and cultures were taken. I did irrigate out this area. The cavity appeared to be about 4 x 3 cm. I packed this with 0.5 inch Iodoform packing followed by a gauze. Surrounding skin does show pitting edema to minimally tender. There is no ischemic tissue. No lymphadenopathy. DIAGNOSTIC STUDIES/LAB DATA: Labs reviewed. Ultrasound reviewed. IMPRESSION AND PLAN: Soft tissue abscess of unclear etiology, possibly from infected hematoma after vascular intervention, although this is not so clear. This has spontaneously drained, but possibly reclosed up and we have actively entered into this cavity again today and from now on we will pack it with 0.5 inch plain packing, keep his leg elevated, continue antibiotics, followup cultures. Possible ID evaluation would be recommended depending on the culture growth. He did have Staph epidermidis in his blood, this is likely what will be grown out of his leg, although cultures were done in the ER consistent with Staph aureus and Peptoniphilus. If the patient improves with this current therapy plan in [facility], we will continue to watch him and pack and he could get wound care through our office and [facility]. If he stalls out or does not improve, I would recommend a CAT scan of the lower extremity. He may require operating room for a larger incision and drainage, but he would need to be off Coumadin and currently he is not n.p.o. I will see what the next 24 hours bring before we suggest operative intervention as I feel that the cavity is actively draining now in the appropriate fashion. I will continue to follow him. [id number]/[facility] #: [id number] [place]
[2017-09-25] MEDS: ceFAZolin 1 GM VIAL(*) 1 GM in NS 0.9% 50 ML* 50 ML IVPB SCH ×5 (04:34→22:11)
[2017-09-25 06:05] LABS: INR 2.54 (0.77-1.02)
[2017-09-25] MEDS: Docusate CAP* 100 MG PO SCH (08:50)
[2017-09-25] MEDS: Clopidogrel TAB* 75 MG PO SCH (08:58)
[2017-09-25] MEDS: CMCS: Pantoprazole TAB (NF) 40 MG TAB PO SCH (08:58)
[2017-09-25] MEDS: Amiodarone TAB* 200 MG PO SCH (08:58)
[2017-09-25] MEDS: Metoprolol Succinate XL TAB* 100 MG PO SCH (08:58)
[2017-09-25] MEDS: Acetaminophen TAB* 325 MG PO PRN ×3 (12:21→23:02)
--- NOTE | 2017-09-25 12:50 | PN ---
Subjective Date of Service: 09/25/17 Interval History: Pt is feeling ok. He states he still has pain in his R leg but slightly less today. He denies any CP or SOB. Objective Active Medications: Acetaminophen (Tylenol Tab*) 650 mg PO Q6H PRN PRN Reason: FEVER/PAIN Last Admin: 09/25/17 12:21 Dose: 650 mg Albuterol (Ventolin 2.5 Mg/3 Ml Neb.Juany*) 2.5 mg INH Q2H PRN PRN Reason: SOB/WHEEZING Amiodarone HCl (Cordarone Tab*) 200 mg PO DAILY [facility] Last Admin: 09/25/17 08:58 Dose: 200 mg Atorvastatin Calcium (Lipitor*) 40 mg PO QPM [facility] Last Admin: 09/24/17 17:25 Dose: 40 mg Benzonatate (Tessalon Cap*) 100 mg PO BID PRN PRN Reason: COUGH Clopidogrel Bisulfate (Plavix Tab*) 75 mg PO DAILY [facility] Last Admin: 09/25/17 08:58 Dose: 75 mg Docusate Sodium (Colace Cap*) 100 mg PO DAILY [facility] Last Admin: 09/25/17 08:50 Dose: Not Given Cefazolin Sodium 1 gm/ Sodium (Chloride) 50 mls @ 200 mls/hr IVPB Q6H [facility] Last Admin: 09/25/17 12:21 Dose: 200 mls/hr Melatonin (Melatonin (Nf)) 3 mg PO BEDTIME PRN; Protocol PRN Reason: Sleep Metoprolol Succinate (Toprol Xl Tab*) 100 mg PO DAILY [facility] Last Admin: 09/25/17 08:58 Dose: 100 mg Ondansetron HCl (Zofran Inj*) 4 mg IV Q6H PRN PRN Reason: NAUSEA Pantoprazole Sodium (Protonix Tab (Nf)) 40 mg PO DAILY [facility] Last Admin: 09/25/17 08:58 Dose: 40 mg Tramadol HCl (Ultram*) 50 mg PO Q6H PRN PRN Reason: PAIN Warfarin Sodium (Coumadin Tab(*)) 2 mg PO MoTuWeFrSa@1700 [facility] PRN Reason: Protocol Last Admin: 09/24/17 17:25 Dose: 2 mg Warfarin Sodium (Coumadin Tab(*)) 4 mg PO SuTh@1700 [facility] PRN Reason: Protocol Vital Signs - 8 hr 09/25/17 07:16 Temperature 97.8 F Pulse Rate 70 Respiratory 24 Rate Blood Pressure 134/54 (mmHg) O2 Sat by Pulse 96 Oximetry Oxygen Devices in Use Now: None Appearance: Elderly male sitting up in a chair, NAD Eyes: No Scleral Icterus Ears/Nose/Mouth/Throat: Mucous Membranes Moist Respiratory: Symmetrical Chest Expansion and Respiratory Effort, Clear to Auscultation - few LLL crackles Cardiovascular: RRR, - - III/ systolic murmur heard best at the RUSB Abdominal: NL Sounds; No Tenderness; No Distention Extremities: No Clubbing, Cyanosis Skin: No Rash or Ulcers, No Nodules or Sclerosis, - - ulcer to R lateral calf unchanged today but now packing noted within the wound, scant bloody drainage noted on gauze dressing Result Diagrams: 09/24/17 08:32 09/24/17 08:32 Additional Lab and Data: Lab Results 09/22/17 Range/Units 15:28 Influenza A (Rapid) Negative (Negative) Influenza B (Rapid) Negative (Negative) Microbiology and Other Data: Microbiology 09/24/17 18:00 Gram Stain - Final Leg Right 09/24/17 10:52 Aerobic Blood Culture - Preliminary Blood Venous No Growth Day 1 Anaerobic Blood Culture - Preliminary No Growth Day 1 Assess/Plan/Problems-Billing 77 yo M h/o CAD, afib, AV replacement, PAD sp left femoral endarterectomy and iliac stent in 05/2017 who presented with chills and rigors that developed during imaging as outpatient. - Patient Problems (1) Bacteremia Current Visit: Yes Status: Acute Code(s): R78.81 - BACTEREMIA SNOMED Code( s): 2191518 Comment: Now 4 of 4 bottles positive for S epidermidus. ID consult obtained. Dr. Le recommended a CARTER tomorrow. TTE showed thickened AV leaflets but no definitive vegetations. Repeat blood cultures so far are negative. Continue cefazolin. (2) Ulcer Current Visit: Yes Status: Acute Code(s): NGG3105 - SNOMED Code(s): 215099360 Comment: The patient has a chronic ulceration the R lateral calf. It has been present for several months (dating back to 05/2017). Culture grew MSSA. Will await recommendations from Dr. Le. Continue cefazolin as above. (3) Hyponatremia Current Visit: Yes Status: Acute Code(s): E87.1 - HYPO-OSMOLALITY AND HYPONATREMIA SNOMED Code(s): 41665365 Comment: Na not checked today-BMP 3/2 (4) A-fib Current Visit: Yes Status: Acute Code(s): I48.91 - UNSPECIFIED ATRIAL FIBRILLATION SNOMED Code(s): 14564651 Comment: Pt is in NSR. Continue amiodarone, metoprolol and coumadin. (5) H/O deep venous thrombosis Current Visit: Yes Status: Acute Code(s): Z86.718 - PERSONAL HISTORY OF OTHER VENOUS THROMBOSIS AND EMBOLISM SNOMED Code(s): 875385704 Comment: Pt remains on coumadin with therpeutic INR. (6) CAD (coronary artery disease) Current Visit: Yes Status: Acute Code(s): I25.10 - ATHSCL HEART DISEASE OF [place] CORONARY ARTERY W/O ANG PCTRS SNOMED Code(s): 74811669 Comment: The patient has a h/o NSTEMI with cardiogenic shock post L iliac stenting 05/2017. Trop this admission mildly elevated. Likely secondary to demand ischemia. No c/o chest pain. Will not work up further at this time. (7) DVT prophylaxis Current Visit: Yes Status: Acute Code(s): ANP9163 - SNOMED Code(s): 101418687 Comment: therapeutic INR (8) Full code status Current Visit: Yes Status: Acute Code(s): Z78.9 - OTHER SPECIFIED HEALTH STATUS SNOMED Code(s): 959109819
--- NOTE | 2017-09-25 12:50 | PN ---
Progress Note - Progress Note Date of Service: 09/25/17 Note: Surgery Progress: S: c/o pain, radha w/ WB or ambulation; less pain when elevated. On Cefazolin. Dr. Le in to see. Current Medications Acetaminophen (Tylenol Tab*) 650 mg PO Q6H PRN PRN Reason: FEVER/PAIN Last Admin: 09/25/17 12:21 Dose: 650 mg Albuterol (Ventolin 2.5 Mg/3 Ml Neb.Juany*) 2.5 mg INH Q2H PRN PRN Reason: SOB/WHEEZING Amiodarone HCl (Cordarone Tab*) 200 mg PO DAILY [facility] Last Admin: 09/25/17 08:58 Dose: 200 mg Atorvastatin Calcium (Lipitor*) 40 mg PO QPM [facility] Last Admin: 09/24/17 17:25 Dose: 40 mg Benzonatate (Tessalon Cap*) 100 mg PO BID PRN PRN Reason: COUGH Clopidogrel Bisulfate (Plavix Tab*) 75 mg PO DAILY [facility] Last Admin: 09/25/17 08:58 Dose: 75 mg Docusate Sodium (Colace Cap*) 100 mg PO DAILY [facility] Last Admin: 09/25/17 08:50 Dose: Not Given Cefazolin Sodium 1 gm/ Sodium (Chloride) 50 mls @ 200 mls/hr IVPB Q6H [facility] Last Admin: 09/25/17 12:21 Dose: 200 mls/hr Melatonin (Melatonin (Nf)) 3 mg PO BEDTIME PRN; Protocol PRN Reason: Sleep Metoprolol Succinate (Toprol Xl Tab*) 100 mg PO DAILY [facility] Last Admin: 09/25/17 08:58 Dose: 100 mg Ondansetron HCl (Zofran Inj*) 4 mg IV Q6H PRN PRN Reason: NAUSEA Pantoprazole Sodium (Protonix Tab (Nf)) 40 mg PO DAILY [facility] Last Admin: 09/25/17 08:58 Dose: 40 mg Tramadol HCl (Ultram*) 50 mg PO Q6H PRN PRN Reason: PAIN Warfarin Sodium (Coumadin Tab(*)) 2 mg PO MoTuWeFrSa@1700 [facility] PRN Reason: Protocol Last Admin: 09/24/17 17:25 Dose: 2 mg Warfarin Sodium (Coumadin Tab(*)) 4 mg PO SuTh@1700 [facility] PRN Reason: Protocol O: Vital Signs - 8 hr 09/25/17 07:16 Temperature 97.8 F Pulse Rate 70 Respiratory 24 Rate Blood Pressure 134/54 (mmHg) O2 Sat by Pulse 96 Oximetry Gen: NAD RLE: dsg w/ moderate sang drainage. Some dull erythema surrounding wound. Small area of necrosis of posterior portion of the wound in the lateral calf (~ 1 x 0.5 cm). No sig purulent drainage upon removal of packing. Open wound (1x 1.5 cm ) probes in a posterior direction to depth of ~ 3 cm. No other obvious tracking. 1/2" iodoform packing was replaced (will change to plain packing after this) w/ DSD, Kerlix. The leg is exquisitely tender around the wound, especially posteriorly and the more proximal and anteriror tibial regions. The right foot is warm w/ good color and doppler signals (I was unable to palp pulses). As previously noted, KIRSTEN on R is only 0.45. New C&S pend (Gr pos cocci; prior culture + for Staph Epi_ A: abscess Right leg (2/2 trauma- old hematoma? vs ischemia?) s/p I&D; stable P: cont Cefazolin; wound care; will follow
[2017-09-25] MEDS ORDERED: Warfarin TAB(*) 4 MG PO SCH (17:00)
[2017-09-25] MEDS: Atorvastatin* 40 MG TAB PO SCH (18:00)
--- NOTE | 2017-09-25 21:57 | CONS ---
CONSULTING REPORT: DATE OF CONSULT: 09/25/17 REQUESTING PHYSICIAN: Dr. Orr. CONSULTING SERVICE: Infectious Disease. REASON FOR CONSULTATION: Staph epidermidis bacteremia and right leg abscess. IMPRESSION: 1. Admitted with fever and rigors, 4/4 bottles of blood culture growing staph epidermidis. He has a prosthetic heart valve, so infectious endocarditis is high on the differential. He does have a left lower extremity vascular stent. Infection of that seems less likely. 2. Chronic right lateral mid calf ulcer, which had been improving and then developed worsening pain, swelling, redness, and drainage, has had bedside incision and debridement and wound packing and culture of that materials growing staph aureus, some sensitive. 3. Status post aortic valve replacement. 4. Status post left femoral endarterectomy and left iliac stent in May 2017. RECOMMENDATIONS: Recheck the blood cultures, obtain a transesophageal echocardiogram, and continue Ancef. That will cover the staph epidermidis as well as the staph aureus direct from his right leg. HISTORY OF PRESENT ILLNESS: This is a 77-year-old man with an aortic valve replacement, admitted with rigors. He had also had pain, swelling, redness around the chronic right calf wound, which had been present since at least May, and he was apparently getting slowly better with topical therapy. He has had worsening redness, pain, and swelling, had a bedside incision and debridement last night with some purulent material obtained, which was sent for cultures growing staph aureus. PCR is negative for MRSA. Blood cultures obtained on admission are 4/4 staph epidermidis. He is continued on Ancef since admission. He had rigors 2 days ago. No fever since then. His white count was 10,000 on admission, it was 10 on the th. His energy is improving as his appetite. He notes about a week of fevers, chills, drenching sweats and anorexia before he came to the hospital. PAST MEDICAL HISTORY: 1. Status post bioprosthetic aortic valve replacement. 2. Status post left femoral endarterectomy and left iliac stent in May 2017 at [facility]. 3. Coronary artery disease, history of non-ST elevation VA and an LAD stent. 4. History of heart failure. 5. Atrial fibrillation. 6. History of bladder cancer. 7. DVT. 8. Hypertension. 9. Hyperlipidemia. 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 ALLERGIES: No known drug allergies. MEDICATIONS: 1. Tylenol. 2. Amiodarone. 3. Lipitor. 4. Cefazolin 1 g every 6 hours. 5. Plavix. 6. Melatonin. 7. Metoprolol. 8. Tramadol. 9. Pantoprazole. 10. Warfarin. SOCIAL HISTORY: He lives with his . No travel, no sick contacts. FAMILY HISTORY: No current infections or tuberculosis. REVIEW OF SYSTEMS: A 14-point review of systems was negative except as noted above. PHYSICAL EXAM: Vital Signs: Temperature 37, heart rate 60, respiratory rate 20 , blood pressure 140/51, oxygen saturation 100% on room air. In general, he is awake, not in distress. Neurologic: He is oriented x3. Moves all his extremities. HEENT: There is no conjunctival hemorrhage. Oropharynx without lesions. Neck is supple without mass. Lymph Nodes: There is no cervical, supraclavicular, inguinal, axillary, or epitrochlear lymphadenopathy. Heart is regular rate and rhythm without murmurs, rubs, or gallops. Lungs are clear to auscultation bilaterally. Abdomen is soft, nontender, nondistended. There are bowel sounds present. Skin: There is no rash or splinter hemorrhages. Musculoskeletal: There is no spine tenderness to palpation. There is a lateral calf ulcer about 1 cm with surrounding induration, erythema and warmth. There is wound packing with serous drainage. DIAGNOSTIC STUDIES/LAB DATA: White blood cell count 10, hemoglobin 9, platelets 230. Creatinine 0.9. Please see impressions and recommendations outlined above, which I have discussed with Dr. Orr. Thanks for asking me to see Mr. Castellon in consultation. [id number]/[facility] #: [id number] [place]
[2017-09-26] MEDS: Acetaminophen TAB* 325 MG PO PRN ×3 (01:14→17:36)
[2017-09-26] MEDS: ceFAZolin 1 GM VIAL(*) 1 GM in NS 0.9% 50 ML* 50 ML IVPB SCH ×3 (04:52→17:37)
[2017-09-26 06:37] LABS: Hematocrit 25 % (42-52); Hemoglobin 8.6 g/dl (14.0-18.0); Mean Corpuscular HGB Conc 34 g/dl (31-36); Mean Corpuscular Hemoglobin 29 pg (27-31); Mean Corpuscular Volume 83 fL (80-94); Mean Platelet Volume 7 um3 (7.4-10.4); Platelet Count 273 10^3/ul (150-450); Red Cell Distribution Width 18 % (10.5-15); White Blood Count 10.6 10^3/ul (3.5-10.8)
[2017-09-26 06:52] LABS: EGFR Non-African American 74.9 (>60)
[2017-09-26] MEDS: Metoprolol Succinate XL TAB* 100 MG PO SCH (08:51)
[2017-09-26] MEDS: Clopidogrel TAB* 75 MG PO SCH (08:51)
[2017-09-26] MEDS: CMCS: Pantoprazole TAB (NF) 40 MG TAB PO SCH (08:51)
[2017-09-26] MEDS: Amiodarone TAB* 200 MG PO SCH (08:51)
[2017-09-26] MEDS: Docusate CAP* 100 MG PO SCH (08:53)
[2017-09-26] MEDS ORDERED: fentaNYL* 50 MCG/ML 2 ML VIAL (100 MCG VIAL) ONE (09:54)
[2017-09-26] MEDS ORDERED: Lidocaine 2% VISCOUS* 15 ML UDC ONE (09:54)
[2017-09-26] MEDS ORDERED: Naloxone* 0.4 MG/ML 1 ML VIAL ONE (09:54)
[2017-09-26] MEDS ORDERED: Flumazenil* 0.1 MG/ML 5 ML MDV ONE (09:54)
[2017-09-26] MEDS ORDERED: Midazolam* 1 MG/ML 10 ML VIAL (10 MG) ONE (09:55)
--- NOTE | 2017-09-26 13:31 | TEE ---
Patient: JOSE JUAN CHOE Rec#: [id number] : 1940 Date: 09/26/2017 Age: 77y Height: 170.2 cm / 67.0 in Weight: 81.7 kg / 180.1 lbs Sex: M BSA: 1.9 Room#: 453 Admit Date#: 09/22/2017 Type: Inpatient Referring: Eileen Orr DO Performing: Young Villegas MD Reading: Young Villegas MD Hand Cutter: Anabel Louie RN RDCS Nurse: Alem Mcelroy RN CC: Matthias Welch MD CC: Brandon Willingham MD Transesophageal Echocardiogram Indication: Bacteremia BP: 135/47 HR: 54 Rhythm: NSR Findings History: CAD, NSTEMI, bioprosthetic AVR in 2009, A. fib, HTN, HLD, DVT, PVD, bladder cancer Technical Comments: The study quality is good. Left Ventricle: The left ventricular chamber size is normal. Moderate concentric left ventricular hypertrophy is observed. There is a focal wall motion abnormality present.The posterior base appears to be relatively hypokinetic. There is mildly decreased left ventricular systolic function. The estimated ejection fraction is 45-50%. Post surgical hypokinesis of the interventricular septum is observed consistent with valve replacement. The assessment of diastolic function is non-diagnostic. Left Atrium: The left atrium is moderate to severely dilated. There is no thrombus visualized in the left atrial appendage. Right Ventricle: The right ventricular cavity size is normal. The right ventricular global systolic function is normal. Right Atrium: The right atrium is moderately dilated. A patent foramen ovale is not demonstrated by color Doppler. A bubble study was performed and was negative on a prior transesophageal echocardiogram and is not repeated today. Aortic Valve: The aortic valve leaflets are mildly thickened. There is trace to mild aortic regurgitation. There is mild to moderate aortic stenosis. on 2D imaging. A bio-prosthetic aortic valve is present. There is a small echodense area seen at 4 o'clock on the short axis view. Comparison with images from the previous transesophageal echo 03/19/17 show it to be similar in appearance. There is no aortic vegetation present. Mitral Valve: There is mitral annular calcification. The mitral valve leaflets are mildly thickened. There is moderate mitral regurgitation. No vegetation is observed on the mitral valve. Tricuspid Valve: The tricuspid valve leaflets are normal. There is mild to moderate tricuspid regurgitation. Unable to estimate the right ventricular systolic pressure. No vegetation is observed on the tricuspid valve. Pulmonic Valve: The pulmonic valve appears normal. There is no evidence of pulmonic regurgitation. No vegetation is observed on the pulmonic valve. Pericardium: There is no significant pericardial effusion. Aorta: The ascending aorta is not well visualized. There is no dilation of the aortic root.There is mild non-mobile atherosclerotic plaque seen in the aorta. Pulmonary Artery: The main pulmonary artery is not well visualized. Venous: The inferior vena cava appears normal. The pulmonary veins appear normal. 4 pulmonary veins are visualized. The superior vena cava appears normal. CARTER Procedures: All standard views were attempted within the limitations of patient tolerance and safety. History and physical as well as labs were reviewed. The patient was in a fasting state. Risks and benefits of the procedure, including alternatives, were discussed and written informed consent was obtained. The patient and/or their health care senior patient account representative expressed understanding of the procedure, risks and benefits. Baseline and continuous monitoring of blood pressure, heart rate, pulse oximetry and heart rhythm was performed throughout the procedure. The appropriate time-out procedure was performed as per [facility] protocol. The patient was placed in the left lateral decubitus position. The patient's posterior pharynx was anesthetized with 20ml of 2% viscous lidocaine. The patient received IV Midazolam with a total dose of 6 mg. The patient received IV Fentanyl with a total dose of 100 mcg. An oral bite block was inserted for protection of oral dentition. The multiplane transesophageal echocardiogram probe was inserted through the posterior oropharynx and advanced into the esophagus without difficulty. The probe came out during the procedure. A new probe was inserted without difficulty and the exam was continued. Multiple 2D images were obtained of the heart and its related structures. Color flow Doppler was used for evaluation. Spectral Doppler was also used. The atrial septum was interrogated with color flow Doppler. At the conclusion of the procedure the probe was removed with continuous suction without complications. The patient tolerated the procedure with no apparent complications. Conclusions There is mildly decreased left ventricular systolic function. The estimated ejection fraction is 45-50%. There is a focal wall motion abnormality present.The posterior base appears to be relatively hypokinetic. The left ventricular chamber size is normal. Moderate concentric left ventricular hypertrophy is observed. The left atrium is moderate to severely dilated. The right atrium is moderately dilated. A bio-prosthetic aortic valve is well seated and noted to be normally function with mild to moderate aortic stenosis. and trace to mild aortic regurgitation. There is moderate mitral regurgitation. There is mild to moderate tricuspid regurgitation. No intra-cardiac vegetation seen on this exam. Since the prior transesophageal echocardiogram completed 03/19/17 and transthoracic echocardiogram completed 09/24/17, there appears to be little change. Measurements Name Value Normal Range Aortic Annulus 1.7 cm (1.4 - 2.6) Ao root diameter (2D) 2.6 cm (2.1 - 3.5) Name Value Normal Range MV E-wave Vmax 1.1 m/sec - MV deceleration time 134 msec - MV A-wave Vmax 0.31 m/sec - MV E:A ratio 3.6 ratio -
--- NOTE | 2017-09-26 16:49 | PN ---
Subjective Date of Service: 09/26/17 Interval History: Pt is feeling well today. He notes that the pain in his R LE is improved some. He thinks the leg is slightly less swollen today. He has no other complaints. Objective Active Medications: Acetaminophen (Tylenol Tab*) 650 mg PO Q6H PRN PRN Reason: FEVER/PAIN Last Admin: 09/26/17 08:51 Dose: 650 mg Albuterol (Ventolin 2.5 Mg/3 Ml Neb.Juany*) 2.5 mg INH Q2H PRN PRN Reason: SOB/WHEEZING Amiodarone HCl (Cordarone Tab*) 200 mg PO DAILY [facility] Last Admin: 09/26/17 08:51 Dose: 200 mg Atorvastatin Calcium (Lipitor*) 40 mg PO QPM [facility] Last Admin: 09/25/17 18:00 Dose: 40 mg Benzonatate (Tessalon Cap*) 100 mg PO BID PRN PRN Reason: COUGH Clopidogrel Bisulfate (Plavix Tab*) 75 mg PO DAILY [facility] Last Admin: 09/26/17 08:51 Dose: 75 mg Docusate Sodium (Colace Cap*) 100 mg PO DAILY [facility] Last Admin: 09/26/17 08:53 Dose: Not Given Cefazolin Sodium 1 gm/ Sodium (Chloride) 50 mls @ 200 mls/hr IVPB Q6H [facility] Last Admin: 09/26/17 12:10 Dose: 200 mls/hr Melatonin (Melatonin (Nf)) 3 mg PO BEDTIME PRN; Protocol PRN Reason: Sleep Metoprolol Succinate (Toprol Xl Tab*) 100 mg PO DAILY [facility] Last Admin: 09/26/17 08:51 Dose: 100 mg Ondansetron HCl (Zofran Inj*) 4 mg IV Q6H PRN PRN Reason: NAUSEA Pantoprazole Sodium (Protonix Tab (Nf)) 40 mg PO DAILY [facility] Last Admin: 09/26/17 08:51 Dose: 40 mg Tramadol HCl (Ultram*) 50 mg PO Q6H PRN PRN Reason: PAIN Warfarin Sodium (Coumadin Tab(*)) 2 mg PO MoTuWeFrSa@1700 [facility] PRN Reason: Protocol Last Admin: 09/24/17 17:25 Dose: 2 mg Warfarin Sodium (Coumadin Tab(*)) 4 mg PO SuTh@1700 [facility] PRN Reason: Protocol Last Admin: 09/25/17 18:00 Dose: 4 mg Vital Signs - 8 hr 09/26/17 11:51 Temperature 97.5 F Pulse Rate 55 Respiratory 20 Rate Blood Pressure 119/63 (mmHg) O2 Sat by Pulse 97 Oximetry Oxygen Devices in Use Now: None Appearance: Elderly male sitting up in bed, NAD Eyes: No Scleral Icterus Ears/Nose/Mouth/Throat: Mucous Membranes Moist Respiratory: Symmetrical Chest Expansion and Respiratory Effort, Clear to Auscultation Cardiovascular: NL Sounds; No Murmurs; No JVD, RRR, - - + swelling R LE Abdominal: NL Sounds; No Tenderness; No Distention Extremities: No Clubbing, Cyanosis Skin: No Rash or Ulcers, No Nodules or Sclerosis Neurological: Alert and Oriented x 3 Result Diagrams: 09/26/17 06:12 09/26/17 06:12 Additional Lab and Data: Lab Results 09/22/17 Range/Units 15:28 Influenza A (Rapid) Negative (Negative) Influenza B (Rapid) Negative (Negative) Microbiology and Other Data: Microbiology 09/24/17 18:00 Gram Stain - Final Leg Right 09/24/17 10:52 Aerobic Blood Culture - Preliminary Blood Venous No Growth Day 1 Anaerobic Blood Culture - Preliminary No Growth Day 1 Assess/Plan/Problems-Billing 77 yo M h/o CAD, afib, AV replacement, PAD sp left femoral endarterectomy and iliac stent in 05/2017 who presented with chills and rigors that developed during imaging as outpatient. - Patient Problems (1) Bacteremia Current Visit: Yes Status: Acute Code(s): R78.81 - BACTEREMIA SNOMED Code( s): 0218307 Comment: 4 of 4 bottles positive for S epidermidus. CARTER done today did not show clear vegetation. In speaking with Dr Le he wants to treat as if he has endocarditis given his prosthetic AV. Repeat blood cultures so far are negative. Continue cefazolin-plan on 2g IV q8hr after d/c. (2) Ulcer Current Visit: Yes Status: Acute Code(s): BFC9424 - SNOMED Code(s): 621868694 Comment: The patient has a chronic ulceration the R lateral calf. Abscess drained and now wound is packed. Continue daily packing. (3) Hyponatremia Current Visit: Yes Status: Acute Code(s): E87.1 - HYPO-OSMOLALITY AND HYPONATREMIA SNOMED Code(s): 47531494 Comment: Na stable. (4) A-fib Current Visit: Yes Status: Acute Code(s): I48.91 - UNSPECIFIED ATRIAL FIBRILLATION SNOMED Code(s): 50736538 Comment: Pt is in NSR. Continue amiodarone, metoprolol and coumadin. (5) H/O deep venous thrombosis Current Visit: Yes Status: Acute Code(s): Z86.718 - PERSONAL HISTORY OF OTHER VENOUS THROMBOSIS AND EMBOLISM SNOMED Code(s): 150685675 Comment: Pt remains on coumadin with therpeutic INR. (6) CAD (coronary artery disease) Current Visit: Yes Status: Acute Code(s): I25.10 - ATHSCL HEART DISEASE OF [place] CORONARY ARTERY W/O ANG PCTRS SNOMED Code(s): 68073455 Comment: The patient has a h/o NSTEMI with cardiogenic shock post L iliac stenting 05/2017. Trop this admission mildly elevated. Likely secondary to demand ischemia. No c/o chest pain. Will not work up further at this time. (7) DVT prophylaxis Current Visit: Yes Status: Acute Code(s): JVW7658 - SNOMED Code(s): 852821164 Comment: therapeutic INR (8) Full code status Current Visit: Yes Status: Acute Code(s): Z78.9 - OTHER SPECIFIED HEALTH STATUS SNOMED Code(s): 458288086
[2017-09-26] MEDS: Atorvastatin* 40 MG TAB PO SCH (17:36)
[2017-09-26] MEDS: Warfarin TAB(*) 2 MG PO SCH (17:37)
--- NOTE | 2017-09-26 18:13 | PN ---
Progress Note - Progress Note Date of Service: 09/26/17 Note: Surgery Progress: S: Day 2 post I&D R calf abscess. Patient seems to be improving: less pain, less swelling. Had CARTER this a.m. O: Vital Signs - 8 hr 09/26/17 09/26/17 09/26/17 11:51 12:04 13:33 Temperature 97.5 F 97.2 F 97.3 F Pulse Rate 55 54 58 Respiratory 20 20 16 Rate Blood Pressure 119/63 115/51 127/54 (mmHg) O2 Sat by Pulse 97 97 97 Oximetry 09/26/17 09/26/17 14:19 16:23 Temperature 97.7 F 98.1 F Pulse Rate 58 66 Respiratory 18 22 Rate Blood Pressure 132/54 130/61 (mmHg) O2 Sat by Pulse 99 97 Oximetry Gen: NAD; a bit drowsy when I first came in. RLE: less edema; no sig erythema; still small area of necrosis, posterior aspect of right lateral calf wound. Serosang drainage. Less tender to palp, though still notably tender anteriorly. Upon probing w/ sterile Qtip, the wound probes a bit deeper posteriorly ( ~ 5-6 cm) and also now probes anteriorly as well (~ 3-4 cm) w/ some thin cloudly drainage. Pkg replaced (1/2" plain); vladimir'd well. DSD cover, Kerlix, Claus placed. C&S from wound: same as original (S Aureus [MSSA] and an anaerobe), but discordant from the blood cxs (staph epi), though both sens to cefazolin. A/P: R calf abscess, s/p I&D, now w/ open wound, packed. Cont abx per hosp/ID. Cont current wound care. Discussed w/ floor nurse for weekend care.
[2017-09-27] MEDS: ceFAZolin 1 GM VIAL(*) 1 GM in NS 0.9% 50 ML* 50 ML IVPB SCH ×5 (00:08→21:59)
[2017-09-27 06:17] LABS: ABS Basophils 0 10^3/ul (0-0.2); ABS Eosinophils 0.1 10^3/ul (0-0.6); ABS Lymphocytes 0.9 10^3/ul (1.0-4.8); ABS Monocytes 0.7 10^3/ul (0-0.8); ABS Neutrophils 9.1 10^3/ul (1.5-7.7); ABS Nucleated RBC 0 10^3/ul; Eosinophil % 0.5 % (0-6); Hematocrit 25 % (42-52); Hemoglobin 8.3 g/dl (14.0-18.0); Lymphocyte % 8.1 % (25-47); Mean Corpuscular HGB Conc 34 g/dl (31-36); Mean Corpuscular Hemoglobin 28 pg (27-31); Mean Corpuscular Volume 84 fL (80-94); Mean Platelet Volume 7 um3 (7.4-10.4); Nucleated Red Blood Cells % 0; Platelet Count 306 10^3/ul (150-450); Red Blood Count 2.94 10^6/ul (4.0-5.4); Red Cell Distribution Width 19 % (10.5-15); White Blood Count 10.7 10^3/ul (3.5-10.8)
[2017-09-27 06:20] LABS: EGFR Non-African American 69.8 (>60)
[2017-09-27] MEDS: CMCS: Pantoprazole TAB (NF) 40 MG TAB PO SCH (09:55)
[2017-09-27] MEDS: Clopidogrel TAB* 75 MG PO SCH (09:55)
[2017-09-27] MEDS: Metoprolol Succinate XL TAB* 100 MG PO SCH (09:55)
[2017-09-27] MEDS: Amiodarone TAB* 200 MG PO SCH (09:55)
[2017-09-27] MEDS: Acetaminophen TAB* 325 MG PO PRN (09:56)
[2017-09-27] MEDS: Docusate CAP* 100 MG PO SCH (09:59)
[2017-09-27] MEDS: Furosemide IV* 10 MG/ML 2 ML VIAL (20 MG) IV SLOW PU SCH ×2 (13:58→21:53)
--- NOTE | 2017-09-27 16:02 | PN ---
Subjective Date of Service: 09/27/17 Interval History: no overnight events. his wound dressing is being packed by his RN now and he has some pain, but otherwise the pain has been tolerable with tylenol. no fevers/chills, palpitations, chest pain. He does note that his legs are more swollen than usual, and he complains of orthopnea--he has been sleeping in the recliner. Family History: Unchanged from Admission Social History: Unchanged from Admission Past Medical History: Unchanged from Admission Objective Active Medications: Acetaminophen (Tylenol Tab*) 650 mg PO Q6H PRN PRN Reason: FEVER/PAIN Last Admin: 09/27/17 09:56 Dose: 650 mg Albuterol (Ventolin 2.5 Mg/3 Ml Neb.Juany*) 2.5 mg INH Q2H PRN PRN Reason: SOB/WHEEZING Amiodarone HCl (Cordarone Tab*) 200 mg PO DAILY [facility] Last Admin: 09/27/17 09:55 Dose: 200 mg Atorvastatin Calcium (Lipitor*) 40 mg PO QPM [facility] Last Admin: 09/26/17 17:36 Dose: 40 mg Benzonatate (Tessalon Cap*) 100 mg PO BID PRN PRN Reason: COUGH Clopidogrel Bisulfate (Plavix Tab*) 75 mg PO DAILY [facility] Last Admin: 09/27/17 09:55 Dose: 75 mg Docusate Sodium (Colace Cap*) 100 mg PO DAILY [facility] Last Admin: 09/27/17 09:59 Dose: Not Given Furosemide (Lasix Iv*) 20 mg IV SLOW PU BID [facility] Last Admin: 09/27/17 13:58 Dose: 20 mg Heparin Sodium (Porcine) (Heparin Flush Picc/Ml/Cvc(*)) 1 - 3 ml FLUSH 0600, 1800 [facility] PRN Reason: Protocol Last Admin: 09/27/17 13:58 Dose: 1 ml Cefazolin Sodium 1 gm/ Sodium (Chloride) 50 mls @ 200 mls/hr IVPB Q6H [facility] Last Admin: 09/27/17 11:38 Dose: 200 mls/hr Melatonin (Melatonin (Nf)) 3 mg PO BEDTIME PRN; Protocol PRN Reason: Sleep Metoprolol Succinate (Toprol Xl Tab*) 100 mg PO DAILY [facility] Last Admin: 09/27/17 09:55 Dose: 100 mg Ondansetron HCl (Zofran Inj*) 4 mg IV Q6H PRN PRN Reason: NAUSEA Pantoprazole Sodium (Protonix Tab (Nf)) 40 mg PO DAILY [facility] Last Admin: 09/27/17 09:55 Dose: 40 mg Tramadol HCl (Ultram*) 50 mg PO Q6H PRN PRN Reason: PAIN Warfarin Sodium (Coumadin Tab(*)) 2 mg PO MoTuWeFrSa@1700 [facility] PRN Reason: Protocol Last Admin: 09/26/17 17:37 Dose: 2 mg Warfarin Sodium (Coumadin Tab(*)) 4 mg PO SuTh@1700 [facility] PRN Reason: Protocol Last Admin: 09/25/17 18:00 Dose: 4 mg Vital Signs - 8 hr 09/27/17 09/27/17 09/27/17 08:00 11:11 15:45 Temperature 98.3 F 97.6 F Pulse Rate 63 56 Respiratory 20 24 20 Rate Blood Pressure 142/53 118/43 (mmHg) O2 Sat by Pulse 99 99 Oximetry Oxygen Devices in Use Now: None Appearance: alert, sitting up in chair Eyes: No Scleral Icterus Ears/Nose/Mouth/Throat: NL Teeth, Lips, Gums Neck: - - JVP ~16cm Respiratory: Symmetrical Chest Expansion and Respiratory Effort, Clear to Auscultation Cardiovascular: - - 3+ edema RLE, 2+ LLE. systolic murmur throughout Abdominal: NL Sounds; No Tenderness; No Distention, No Hepatosplenomegaly Lymphatic: No Cervical Adenopathy Skin: - - ulcer on right lateral fonseca with 1cm surrounding erythema, 1cm deep Neurological: Alert and Oriented x 3 Result Diagrams: 09/27/17 05:28 09/27/17 05:28 Additional Lab and Data: Lab Results 09/22/17 Range/Units 15:28 Influenza A (Rapid) Negative (Negative) Influenza B (Rapid) Negative (Negative) Microbiology and Other Data: Microbiology 09/24/17 18:00 Gram Stain - Final Leg Right 09/24/17 10:52 Aerobic Blood Culture - Preliminary Blood Venous No Growth Day 1 Anaerobic Blood Culture - Preliminary No Growth Day 1 Assess/Plan/Problems-Billing 77 yo M h/o CAD, afib, AV replacement, PAD sp left femoral endarterectomy and iliac stent in 05/2017 who presented with chills and rigors that developed during imaging as outpatient. - Patient Problems (1) PAD (peripheral artery disease) Current Visit: Yes Status: Acute Code(s): I73.9 - PERIPHERAL VASCULAR DISEASE, UNSPECIFIED SNOMED Code(s): 405816724 Comment: s/p angioplasty/stenting I suspect this is the etiology of his ulcer, but I need the full records from OSH to understand his history continue plavix and statin (2) Bacteremia Current Visit: Yes Status: Acute Code(s): R78.81 - BACTEREMIA SNOMED Code( s): 7297098 Comment: S epidermidus x 4 bottles from 10/20; then blood cultures negative . CARTER done did not show clear vegetation. 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 picc in place; will discuss plan with ID prior to discharge. Continue cefazolin-plan on 2g IV q8hr after d/c. (3) CAD (coronary artery disease) Current Visit: Yes Status: Acute Code(s): I25.10 - ATHSCL HEART DISEASE OF [place] CORONARY ARTERY W/O ANG PCTRS SNOMED Code(s): 83945765 Comment: The patient has a h/o NSTEMI with stenting. Trop this admission mildly elevated. Likely secondary to demand ischemia. No c/o chest pain. Will not work up further at this time. continue plavix, statin, beta-eileen (4) Ulcer Current Visit: Yes Status: Acute Code(s): ZLH2097 - SNOMED Code(s): 783339609 Comment: Again, likely due to PAD, which has already been intervened upon, but interestingly his reports that the ulcer developed on the same hospitalization that he had vascular stenting. Abscess drained and now wound is packed. Continue daily packing. (5) Acute on chronic systolic (congestive) heart failure Current Visit: Yes Status: Acute Code(s): I50.23 - ACUTE ON CHRONIC SYSTOLIC (CONGESTIVE) HEART FAILURE SNOMED Code(s): 675221551 Comment: with volume overload likely due to volume resuscitation; resume lasix and increase dose to 20mg IV BID Status and Disposition: inpatient
[2017-09-27] MEDS: Warfarin TAB(*) 2 MG PO SCH (16:46)
[2017-09-27] MEDS: Atorvastatin* 40 MG TAB PO SCH (16:46)
--- NOTE | 2017-09-27 20:58 | RAD ---
HISTORY: Right lower extremity pain COMPARISONS: None relevant TECHNIQUE: Multiple transverse and longitudinal ultrasound images were obtained of the right lower extremity from the level of the common femoral vein inferiorly through to the infrapopliteal veins using grayscale, color Doppler, and spectral Doppler imaging with and without compression and with augmentation. Comparison images were obtained of the contralateral common femoral vein. FINDINGS: VEINS: Evaluation of the calf veins is limited secondary to a bandage. The venous system of the right lower extremity is compressible throughout its course, with normal flow on color Doppler imaging and normal response to augmentation on spectral Doppler imaging. SOFT TISSUES: Unremarkable. OTHER FINDINGS: None. IMPRESSION: NO RIGHT LOWER EXTREMITY DEEP VEIN THROMBOSIS
[2017-09-28] MEDS: traMADol TAB* 50 MG PO PRN (01:35)
[2017-09-28] MEDS: ceFAZolin 1 GM VIAL(*) 1 GM in NS 0.9% 50 ML* 50 ML IVPB SCH ×4 (05:45→23:37)
[2017-09-28 06:28] LABS: INR 3.32 (0.77-1.02)
[2017-09-28 06:44] LABS: ABS Basophils 0 10^3/ul (0-0.2); ABS Eosinophils 0.1 10^3/ul (0-0.6); ABS Lymphocytes 1.2 10^3/ul (1.0-4.8); ABS Neutrophils 9.7 10^3/ul (1.5-7.7); ABS Nucleated RBC 0 10^3/ul; Eosinophil % 0.5 % (0-6); Hematocrit 24 % (42-52); Hemoglobin 8.2 g/dl (14.0-18.0); Lymphocyte % 10.1 % (25-47); Mean Corpuscular HGB Conc 34 g/dl (31-36); Mean Corpuscular Hemoglobin 29 pg (27-31); Mean Corpuscular Volume 84 fL (80-94); Mean Platelet Volume 7 um3 (7.4-10.4); Nucleated Red Blood Cells % 0; Platelet Count 308 10^3/ul (150-450); Red Blood Count 2.86 10^6/ul (4.0-5.4); Red Cell Distribution Width 19 % (10.5-15)
[2017-09-28 06:53] LABS: INR 3.39 (0.77-1.02)
[2017-09-28 06:58] LABS: EGFR Non-African American 80.6 (>60)
[2017-09-28] MEDS: Metoprolol Succinate XL TAB* 100 MG PO SCH (08:58)
[2017-09-28] MEDS: Docusate CAP* 100 MG PO SCH (08:58)
[2017-09-28] MEDS: Clopidogrel TAB* 75 MG PO SCH (08:58)
[2017-09-28] MEDS: Amiodarone TAB* 200 MG PO SCH (08:58)
[2017-09-28] MEDS: Furosemide IV* 10 MG/ML 2 ML VIAL (20 MG) IV SLOW PU SCH ×2 (08:58→21:50)
[2017-09-28] MEDS: CMCS: Pantoprazole TAB (NF) 40 MG TAB PO SCH (08:58)
[2017-09-28] MEDS: Acetaminophen TAB* 325 MG PO PRN ×2 (09:22→21:41)
--- NOTE | 2017-09-28 11:47 | PN ---
Subjective Date of Service: 09/28/17 Interval History: no overnight events. this morning he has pain in his leg at the site of the ulcer. it hasn't yet been repacked this morning, but he says he slept poorly because of the pain. he tried tramadol with some relief. Family History: Unchanged from Admission Social History: Unchanged from Admission Past Medical History: Unchanged from Admission Objective Active Medications: Acetaminophen (Tylenol Tab*) 650 mg PO Q6H PRN PRN Reason: FEVER/PAIN Last Admin: 09/28/17 09:22 Dose: 650 mg Albuterol (Ventolin 2.5 Mg/3 Ml Neb.Juany*) 2.5 mg INH Q2H PRN PRN Reason: SOB/WHEEZING Amiodarone HCl (Cordarone Tab*) [address] [facility] Last Admin: 09/28/17 08:58 Dose: 200 mg Atorvastatin Calcium (Lipitor*) [address] [facility] Last Admin: 09/27/17 16:46 Dose: 40 mg Benzonatate (Tessalon Cap*) 100 mg PO BID PRN PRN Reason: COUGH Clopidogrel Bisulfate (Plavix Tab*) [address] [facility] Last Admin: 09/28/17 08:58 Dose: 75 mg Docusate Sodium (Colace Cap*) [address] [facility] Last Admin: 09/28/17 08:58 Dose: 100 mg Furosemide (Lasix Iv*) [address] SLOW PU BID [facility] Heparin Sodium (Porcine) (Heparin Flush Picc/Ml/Cvc(*)) 1 - 3 ml FLUSH 0600, 1800 [facility] PRN Reason: Protocol Last Admin: 09/28/17 06:31 Dose: 1 ml Cefazolin Sodium 1 gm/ Sodium (Chloride) 50 mls @ 200 mls/hr IVPB Q6H [facility] Last Admin: 09/28/17 11:40 Dose: 200 mls/hr Melatonin (Melatonin (Nf)) 3 mg PO BEDTIME PRN; Protocol PRN Reason: Sleep Last Admin: 09/27/17 21:59 Dose: 3 mg Metoprolol Succinate (Toprol Xl Tab*) [address] [facility] Last Admin: 09/28/17 08:58 Dose: 100 mg Ondansetron HCl (Zofran Inj*) 4 mg IV Q6H PRN PRN Reason: NAUSEA Pantoprazole Sodium (Protonix Tab (Nf)) 40 mg PO DAILY [facility] Last Admin: 09/28/17 08:58 Dose: 40 mg Tramadol HCl (Ultram*) 50 mg PO Q6H PRN PRN Reason: PAIN Last Admin: 09/28/17 01:35 Dose: 50 mg Vital Signs - 8 hr 09/28/17 09/28/17 09/28/17 04:36 04:42 07:37 Temperature 98.3 F 97.8 F Pulse Rate 61 59 Respiratory 16 16 24 Rate Blood Pressure 133/49 132/53 (mmHg) O2 Sat by Pulse 99 97 Oximetry Oxygen Devices in Use Now: None Appearance: alert, tachypneic lying at 20 degrees in bed, no distress Eyes: No Scleral Icterus Ears/Nose/Mouth/Throat: NL Teeth, Lips, Gums Respiratory: - - JVP 14cm Cardiovascular: - - healed sternotomy scar, irregular rhythm, Abdominal: NL Sounds; No Tenderness; No Distention Lymphatic: No Cervical Adenopathy Extremities: - - 3+ le edema right leg, 2+ left leg, ulcer on right leg with some surrounding erythema, packed and draining thin red/yellow fluid Result Diagrams: 09/28/17 06:35 09/28/17 06:35 Additional Lab and Data: Lab Results 09/22/17 Range/Units 15:28 Influenza A (Rapid) Negative (Negative) Influenza B (Rapid) Negative (Negative) Microbiology and Other Data: Microbiology 09/24/17 18:00 Gram Stain - Final Leg Right 09/24/17 10:52 Aerobic Blood Culture - Preliminary Blood Venous No Growth Day 1 Anaerobic Blood Culture - Preliminary No Growth Day 1 Assess/Plan/Problems-Billing 77 yo M h/o CAD, afib, AV replacement, PAD sp left femoral endarterectomy and iliac stent in 05/2017 who presented with chills and rigors that developed during imaging as outpatient. - Patient Problems (1) PAD (peripheral artery disease) Current Visit: Yes Status: Acute Code(s): I73.9 - PERIPHERAL VASCULAR DISEASE, UNSPECIFIED SNOMED Code(s): 970047616 Comment: s/p angioplasty in the right leg and stenting in the left I suspect this is the etiology of his ulcer, but I need the full records from OSH to understand his history--requested from [facility] today continue plavix and statin (2) Bacteremia Current Visit: Yes Status: Acute Code(s): R78.81 - BACTEREMIA SNOMED Code( s): 1497598 Comment: S epidermidus x 4 bottles from 10/20; then blood cultures negative . CARTER done did not show clear vegetation. 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 picc in place; will discuss plan with ID prior to discharge. Continue cefazolin-plan on 2g IV q8hr after d/c. (3) CAD (coronary artery disease) Current Visit: Yes Status: Acute Code(s): I25.10 - ATHSCL HEART DISEASE OF [place] CORONARY ARTERY W/O ANG PCTRS SNOMED Code(s): 19478595 Comment: The patient has a h/o NSTEMI with stenting. Trop this admission mildly elevated. Likely secondary to demand in sepsis. No c/o chest pain. Will not work up further at this time. continue plavix, statin, beta-eileen (4) Ulcer Current Visit: Yes Status: Acute Code(s): VED7695 - SNOMED Code(s): 259729786 Comment: Again, likely due to PAD, which has already been intervened upon, but interestingly he and his report that the ulcer developed 2 weeks after he had peripheral angioplasty. Abscess drained and now wound is packed. Continue daily packing. (5) Acute on chronic systolic (congestive) heart failure Current Visit: Yes Status: Acute Code(s): I50.23 - ACUTE ON CHRONIC SYSTOLIC (CONGESTIVE) HEART FAILURE SNOMED Code(s): 899943546 Comment: with volume overload likely due to volume resuscitation I resumed his lasix yesterday, but he is still positive; increase to 40mg IV BID today Status and Disposition: inpatient
[2017-09-28] MEDS: Atorvastatin* 40 MG TAB PO SCH (17:12)
[2017-09-29] MEDS: traMADol TAB* 50 MG PO PRN (02:04)
[2017-09-29] MEDS: ceFAZolin 1 GM VIAL(*) 1 GM in NS 0.9% 50 ML* 50 ML IVPB SCH (06:06)
[2017-09-29] MEDS: Acetaminophen TAB* 325 MG PO PRN ×3 (06:09→23:47)
[2017-09-29 06:31] LABS: ABS Basophils 0.1 10^3/ul (0-0.2); ABS Eosinophils 0.1 10^3/ul (0-0.6); ABS Lymphocytes 1.3 10^3/ul (1.0-4.8); ABS Monocytes 0.8 10^3/ul (0-0.8); ABS Neutrophils 9.8 10^3/ul (1.5-7.7); ABS Nucleated RBC 0 10^3/ul; Eosinophil % 0.8 % (0-6); Hematocrit 22 % (42-52); Hemoglobin 7.4 g/dl (14.0-18.0); Lymphocyte % 10.9 % (25-47); Mean Corpuscular HGB Conc 33 g/dl (31-36); Mean Corpuscular Hemoglobin 28 pg (27-31); Mean Corpuscular Volume 84 fL (80-94); Mean Platelet Volume 7 um3 (7.4-10.4); Nucleated Red Blood Cells % 0; Platelet Count 327 10^3/ul (150-450); Red Blood Count 2.67 10^6/ul (4.0-5.4); Red Cell Distribution Width 19 % (10.5-15); White Blood Count 12.1 10^3/ul (3.5-10.8)
[2017-09-29 06:44] LABS: EGFR Non-African American 78.6 (>60)
[2017-09-29 07:06] LABS: INR 3.04 (0.77-1.02)
[2017-09-29] MEDS: Metoprolol Succinate XL TAB* 100 MG PO SCH (09:35)
[2017-09-29] MEDS: Docusate CAP* 100 MG PO SCH (09:35)
[2017-09-29] MEDS: CMCS: Pantoprazole TAB (NF) 40 MG TAB PO SCH (09:35)
[2017-09-29] MEDS: Clopidogrel TAB* 75 MG PO SCH (09:35)
[2017-09-29] MEDS: Furosemide IV* 10 MG/ML 2 ML VIAL (20 MG) IV SLOW PU SCH ×3 (09:35→23:49)
[2017-09-29] MEDS: Amiodarone TAB* 200 MG PO SCH (09:35)
--- NOTE | 2017-09-29 10:13 | PN ---
Progress Note - Progress Note Date of Service: 09/29/17 SOAP: Subjective: CC: right leg wound HPI: 77 year old man with prosthetic AV and right leg wound with abscess; right leg and calf pain continues, worse with weight bearing. No fever, rash or diarrhea. Objective: Vital Signs Temp 36.8 C 09/29/17 07:40 Pulse 56 09/29/17 07:40 Resp 16 09/29/17 07:40 BP 133/51 09/29/17 07:40 Pulse Ox 97 09/29/17 07:40 Intake & Output 09/28/17 09/29/17 09/29/17 18:59 06:59 18:59 Intake Total 840 260 Output Total 500 615 Balance 340 -355 Weight 190 lb 3.2 oz Intake: IV Fluids 50 10 ABX - CEFAZOLIN 50 10 IVPB 10 50 ABX - CEFAZOLIN 10 50 Oral 780 200 Output: Urine 500 615 Other: Estimated Void Medium Small # Bowel Movements 0 # Voids 2 2 Gen:awake,no distress HEENT:PERRL, MMM Heart:RRR no murmur Lungs:CTA BL Abd:+BS NTND soft Skin: no rash MSK: R calf pain, edema, induration, no crepitus or fluctuance Laboratory Results - last 24 hr 09/29/17 09/29/17 09/29/17 06:14 06:14 06:14 WBC 12.1 H RBC 2.67 L Hgb 7.4 L Hct 22 L MCV 84 MCH 28 MCHC 33 RDW 19 H Plt Count 327 MPV 7 L Neut % (Auto) 80.6 Lymph % (Auto) 10.9 L [place] % (Auto) 7.0 Eos % (Auto) 0.8 Baso % (Auto) 0.7 Absolute Neuts (auto) 9.8 H Absolute Lymphs (auto) 1.3 Absolute Monos (auto) 0.8 Absolute Eos (auto) 0.1 Absolute Basos (auto) 0.1 Absolute Nucleated RBC 0 Nucleated RBC % 0 INR (Anticoag Therapy) 3.04 H Sodium 127 L Potassium 4.3 Chloride 94 L Carbon Dioxide 26 Anion Gap 7 BUN 24 Creatinine 0.93 Est GFR ( Amer) 101.1 Est GFR (Non-Af Amer) 78.6 BUN/Creatinine Ratio 25.8 H Glucose 107 H Calcium 9.0 Assessment: 1. MSSA abscess right leg, ongoing pain and induration 2. Staph epi bacteremia 4/4 BC bottles; CARTER no vegetation however prosthetic valve so infective endocarditis 3. s/p AVR 4. PAD s/p L iliac stent Plan: 1. ancef 2 gm IV Q8hrs day ; weekly cbc, cmp, crp 2. CT w contrast right lower leg Discussed with Dr Zacarias
--- NOTE | 2017-09-29 10:44 | PN ---
Subjective Date of Service: 09/29/17 Interval History: right leg 6.5/10 pain, both pt and RN noticed much worse swelling in feet/LE when pt went to chair no SOB, chest pain, abdominal pain. ID rec of CT leg. Hgb to 7.4 from 8.2. Denies melena or hematochezia. INR was 3.4 now 3.0. Afebrile, hemodynamically stable. Family History: Unchanged from Admission Social History: Unchanged from Admission Past Medical History: Unchanged from Admission Objective Active Medications: Acetaminophen (Tylenol Tab*) 650 mg PO Q6H PRN PRN Reason: FEVER/PAIN Last Admin: 09/29/17 06:09 Dose: 650 mg Albuterol (Ventolin 2.5 Mg/3 Ml Neb.Juany*) 2.5 mg INH Q2H PRN PRN Reason: SOB/WHEEZING Amiodarone HCl (Cordarone Tab*) 200 mg PO DAILY [facility] Last Admin: 09/29/17 09:35 Dose: 200 mg Atorvastatin Calcium (Lipitor*) 40 mg PO QPM [facility] Last Admin: 09/28/17 17:12 Dose: 40 mg Benzonatate (Tessalon Cap*) 100 mg PO BID PRN PRN Reason: COUGH Clopidogrel Bisulfate (Plavix Tab*) 75 mg PO DAILY [facility] Last Admin: 09/29/17 09:35 Dose: 75 mg Docusate Sodium (Colace Cap*) 100 mg PO DAILY [facility] Last Admin: 09/29/17 09:35 Dose: 100 mg Furosemide (Lasix Iv*) 40 mg IV SLOW PU BID [facility] Last Admin: 09/29/17 09:35 Dose: 40 mg Heparin Sodium (Porcine) (Heparin Flush Picc/Ml/Cvc(*)) 1 - 3 ml FLUSH 0600, 1800 [facility] PRN Reason: Protocol Last Admin: 09/29/17 09:44 Dose: 1 ml Cefazolin Sodium 2 gm/ Sodium (Chloride) 50 mls @ 200 mls/hr IVPB Q8H [facility] Melatonin (Melatonin (Nf)) 3 mg PO BEDTIME PRN; Protocol PRN Reason: Sleep Last Admin: 09/27/17 21:59 Dose: 3 mg Metoprolol Succinate (Toprol Xl Tab*) 100 mg PO DAILY [facility] Last Admin: 09/29/17 09:35 Dose: 100 mg Ondansetron HCl (Zofran Inj*) 4 mg IV Q6H PRN PRN Reason: NAUSEA Pantoprazole Sodium (Protonix Tab (Nf)) 40 mg PO DAILY [facility] Last Admin: 09/29/17 09:35 Dose: 40 mg Tramadol HCl (Ultram*) 50 mg PO Q6H PRN PRN Reason: PAIN Last Admin: 09/29/17 02:04 Dose: 50 mg Vital Signs - 8 hr 09/29/17 09/29/17 09/29/17 04:04 04:58 07:40 Temperature 97.7 F 98.3 F Pulse Rate 57 56 Respiratory 16 16 16 Rate Blood Pressure 122/46 133/51 (mmHg) O2 Sat by Pulse 98 97 Oximetry Oxygen Devices in Use Now: None Appearance: NAD Eyes: No Scleral Icterus, PERRLA Ears/Nose/Mouth/Throat: NL Teeth, Lips, Gums, Mucous Membranes Moist Respiratory: - - rales at b/l bases. no wheezing or rhonchi. Cardiovascular: - - RRR, NIUKRA LUSB, no rubs or gallops. Extremities: No Clubbing, Cyanosis, - - 2-3+ dependent edema in LE, R>L. right calf wrapped w/ some serosanguinous strike through, surrounding erythema, minimally warmth, slightly tender in places. Skin: No Rash or Ulcers, No Nodules or Sclerosis Neurological: Alert and Oriented x 3, NL Sensation, NL Muscle Strength and Tone Nutrition: Taking PO's Result Diagrams: 09/29/17 06:14 09/29/17 06:14 Additional Lab and Data: Laboratory Results - last 24 hr 09/29/17 09/29/17 09/29/17 06:14 06:14 06:14 WBC 12.1 H RBC 2.67 L Hgb 7.4 L Hct 22 L MCV 84 MCH 28 MCHC 33 RDW 19 H Plt Count 327 MPV 7 L Neut % (Auto) 80.6 Lymph % (Auto) 10.9 L [place] % (Auto) 7.0 Eos % (Auto) 0.8 Baso % (Auto) 0.7 Absolute Neuts (auto) 9.8 H Absolute Lymphs (auto) 1.3 Absolute Monos (auto) 0.8 Absolute Eos (auto) 0.1 Absolute Basos (auto) 0.1 Absolute Nucleated RBC 0 Nucleated RBC % 0 INR (Anticoag Therapy) 3.04 H Sodium 127 L Potassium 4.3 Chloride 94 L Carbon Dioxide 26 Anion Gap 7 BUN 24 Creatinine 0.93 Est GFR ( Amer) 101.1 Est GFR (Non-Af Amer) 78.6 BUN/Creatinine Ratio 25.8 H Glucose 107 H Calcium 9.0 Iron Cancelled TIBC Cancelled % Saturation Cancelled Unsat Iron Binding Cancelled Transferrin Cancelled Ferritin Cancelled B-Natriuretic Peptide 09/29/17 06:14 WBC RBC Hgb Hct MCV MCH MCHC RDW Plt Count MPV Neut % (Auto) Lymph % (Auto) [place] % (Auto) Eos % (Auto) Baso % (Auto) Absolute Neuts (auto) Absolute Lymphs (auto) Absolute Monos (auto) Absolute Eos (auto) Absolute Basos (auto) Absolute Nucleated RBC Nucleated RBC % INR (Anticoag Therapy) Sodium Potassium Chloride Carbon Dioxide Anion Gap BUN Creatinine Est GFR ( Amer) Est GFR (Non-Af Amer) BUN/Creatinine Ratio Glucose Calcium Iron TIBC % Saturation Unsat Iron Binding Transferrin Ferritin B-Natriuretic Peptide 1423 H Microbiology and Other Data: Microbiology 09/24/17 10:52 Blood Venous Aerobic Blood Culture - Final No Growth Day 5 09/24/17 10:52 Blood Venous Anaerobic Blood Culture - Final No Growth Day 5 09/24/17 18:00 Leg Right Skin and Soft Tissue MRSA/MSSA (PCR - Final Mrsa Negative S.aureus Positive 09/24/17 18:00 Leg Right Gram Stain - Final 09/24/17 18:00 Leg Right Wound Culture - Final Staphylococcus Aureus Peptoniphilus Asaccharolyticus 09/22/17 17:57 Blood Venous Aerobic Blood Culture - Final Staphylococcus Epidermidis 09/22/17 17:57 Blood Venous Anaerobic Blood Culture - Final Staphylococcus Epidermidis 09/22/17 17:57 Blood Venous Blood MRSA/MSSA (PCR) - Final Mrsa Negative S.aureus Negative 09/22/17 18:09 Blood Venous Aerobic Blood Culture - Final Staphylococcus Epidermidis 09/22/17 18:09 Blood Venous Anaerobic Blood Culture - Final Staphylococcus Epidermidis 09/22/17 18:09 Blood Venous Blood MRSA/MSSA (PCR) - Final Mrsa Negative S.aureus Negative 09/22/17 17:27 Leg Left Skin and Soft Tissue MRSA/MSSA (PCR - Final Mrsa Negative S.aureus Positive 09/22/17 17:27 Leg Left Gram Stain - Final 09/22/17 17:27 Leg Left Wound Culture - Final Staphylococcus Aureus Peptoniphilus Asaccharolyticus 09/22/17 14:06 Nasal Influenza Types A,B Antigen (IBETH) - Final Specimen received for Influenza A/B Molecular testing Assess/Plan/Problems-Billing 77 yo M PMH CAD, afib (on coumadin and amio), AV bioprosthetic replacement, PAD sp left femoral endarterectomy and iliac stent in 05/2017 who presented with chills and rigors that developed during imaging as outpatient. Strep Epidermidis Bacteremia treating with 6 weeks Ancef for IE given bioprosthetic valve. MSSA abscess RLE s/p ID. - Patient Problems (1) Bacteremia Current Visit: Yes Status: Acute Code(s): R78.81 - BACTEREMIA SNOMED Code( s): 8180556 Comment: S epidermidus x 4 bottles from 10/20; then blood cultures negative . CARTER done did not show clear vegetation. 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 picc in place since 09/26; Continue cefazolin-plan on 2g IV q8hr after d/c. (2) Ulcer Current Visit: Yes Status: Acute Code(s): ZIT5051 - SNOMED Code(s): 733796855 Comment: Again, likely due to PAD, which has already been intervened upon, but interestingly he and his report that the ulcer developed 2 weeks after he had peripheral angioplasty. Abscess drained and now wound is packed. Continue daily packing. Per ID recs: CT lower extremity obtained. some air bubbles, could not exclude residual abscess vs post I&D changes, recommended US (pending). (3) Acute on chronic systolic (congestive) heart failure Current Visit: Yes Status: Acute Code(s): I50.23 - ACUTE ON CHRONIC SYSTOLIC (CONGESTIVE) HEART FAILURE SNOMED Code(s): 655042601 Comment: Volume overloaded on exam. BNP 1432. EF 45-50% on CARTER 09/25 increase to 40mg IV q8 from BID. strict io daily weights. (4) A-fib Current Visit: Yes Status: Acute Code(s): I48.91 - UNSPECIFIED ATRIAL FIBRILLATION SNOMED Code(s): 08583460 Comment: Pt is in NSR. Continue amiodarone, metoprolol and coumadin. (5) CAD (coronary artery disease) Current Visit: Yes Status: Acute Code(s): I25.10 - ATHSCL HEART DISEASE OF [place] CORONARY ARTERY W/O ANG PCTRS SNOMED Code(s): 11090865 Comment: The patient has a h/o NSTEMI with stenting. Trop this admission mildly elevated. Likely secondary to demand in sepsis. No c/o chest pain. Will not work up further at this time. continue plavix, statin, beta-eileen (6) DVT prophylaxis Current Visit: Yes Status: Acute Code(s): IBM1490 - SNOMED Code(s): 785205814 Comment: on Coumadin. (7) Anemia Current Visit: Yes Status: Acute Code(s): D64.9 - ANEMIA, UNSPECIFIED SNOMED Code(s): 267872633 Comment: Hgb to 7.4 from 8.2. On coumadin. INR was 3.4 yesterday then 3.0 today. Goal 2-3 for Afib. Also on plavix for left iliac Stent (May 2017). Hx of LAD Stent. Normocytic but RDW elevated. iron panel, ferritin and stool occult ordered. type and screen in AM as may need transfusion. (8) H/O deep venous thrombosis Current Visit: Yes Status: Acute Code(s): Z86.718 - PERSONAL HISTORY OF OTHER VENOUS THROMBOSIS AND EMBOLISM SNOMED Code(s): 465231999 Comment: Pt on coumadin (9) Hyponatremia Current Visit: Yes Status: Acute Code(s): E87.1 - HYPO-OSMOLALITY AND HYPONATREMIA SNOMED Code(s): 70753879 Comment: Na stabley low 127. Volume overloaded currently. Uosm ordered. on diuretics. TSH was 3.1 wnl on 09/19 (10) PAD (peripheral artery disease) Current Visit: Yes Status: Acute Code(s): I73.9 - PERIPHERAL VASCULAR DISEASE, UNSPECIFIED SNOMED Code(s): 898229714 Comment: s/p angioplasty in the right leg and stenting in the left still awaiting records from OSH -requested from [facility] 09/28 continue plavix and statin (11) Full code status Current Visit: Yes Status: Acute Code(s): Z78.9 - OTHER SPECIFIED HEALTH STATUS SNOMED Code(s): 870403470 Status and Disposition: inpatient
[2017-09-29] MEDS ORDERED: Iohexol 300* (CONTRAST) 10 ML SDV IV ONE (11:29)
--- NOTE | 2017-09-29 13:25 | RAD ---
INDICATION: Abscess status post drainage right lower leg. COMPARISON: Correlation is made with a prior ultrasound of the right lower leg from September 24, 2017. TECHNIQUE: Contiguous axial sections were obtained of the right lower leg. Images were reconstructed in the sagittal and coronal planes. The exam was performed following intravenous injection of 100 mL of Omnipaque 300 nonionic contrast. FINDINGS: There is diffuse soft tissue swelling which is most prominent in the subcutaneous tissues although there is also decreased density in the muscles along the posterior lateral aspect of the lower leg. There are several small bubbles of air present in this region with surrounding decreased density which is not well-defined possibly representing residual abscess versus postdrainage changes. This is located at the level of the proximal mid lower leg. Recommend an ultrasound follow-up to compare with the prior ultrasound study to assess for change. No significant focal osseous abnormality is seen. IMPRESSION: 1. FINDINGS CONSISTENT WITH CELLULITIS AND MYOSITIS. 2. SMALL BUBBLES OF AIR AND DECREASED DENSITY IN THE POSTEROLATERAL ASPECT OF THE LOWER LEG DIFFERENTIAL DIAGNOSIS WOULD INCLUDE RESIDUAL ABSCESS VERSUS POST DRAINAGE CHANGES. RECOMMEND A FOLLOW-UP ULTRASOUND STUDY.
[2017-09-29] MEDS: ceFAZolin 1 GM VIAL(*) 2 GM in NS 0.9% 50 ML* 50 ML IVPB SCH ×2 (15:10→22:18)
--- NOTE | 2017-09-29 17:30 | PN ---
Progress Note - Progress Note Date of Service: 09/29/17 Note: Surgery Progress: S: Patient states Right leg pain "3/10", though more painful earlier in the day. Not doing much ambulating 2/2 pain. Continues on Cefazolin. O: Vital Signs - 8 hr 09/29/17 09/29/17 09/29/17 12:42 15:08 15:36 Temperature 98.3 F 97.8 F Pulse Rate 56 56 Respiratory 20 16 Rate Blood Pressure 134/50 120/44 (mmHg) O2 Sat by Pulse 100 99 Oximetry RLE: some dull erythema; small (~1" length) of packing in the surface of the wound; wound still probes to depth of 4-5 cm both posteriorly and anteriorly ( demonstrated to RN at bedside); no add'l undrained abscess appreciated; moderate tenderness anteriorly, but the remainder continues to improve. New 1/4 " packing replaced which he vladimir'd well. DSD cover placed. CT personally reviewed (small areas of air corresponding to known drainage tracks); no add'l undrained collection (see report) A: abscess R calf (s/p I&D) w/ sig PAD, receiving appropriate abx P: cont currrent abx, wound care (w/ careful attn to packing); I do not see any benefit to repeat US at this point (msg relayed to hospitalist); will cont to follow
[2017-09-29] MEDS: Atorvastatin* 40 MG TAB PO SCH (17:55)
[2017-09-30] MEDS: ceFAZolin 1 GM VIAL(*) 2 GM in NS 0.9% 50 ML* 50 ML IVPB SCH ×3 (06:50→22:28)
[2017-09-30 07:25] LABS: ABS Basophils 0 10^3/ul (0-0.2); ABS Eosinophils 0.1 10^3/ul (0-0.6); ABS Lymphocytes 1.5 10^3/ul (1.0-4.8); ABS Neutrophils 12.1 10^3/ul (1.5-7.7); ABS Nucleated RBC 0 10^3/ul; Eosinophil % 0.9 % (0-6); Hematocrit 26 % (42-52); Hemoglobin 8.6 g/dl (14.0-18.0); INR 2.64 (0.77-1.02); Mean Corpuscular HGB Conc 33 g/dl (31-36); Mean Corpuscular Hemoglobin 28 pg (27-31); Mean Corpuscular Volume 83 fL (80-94); Mean Platelet Volume 7 um3 (7.4-10.4); Nucleated Red Blood Cells % 0.1; Platelet Count 424 10^3/ul (150-450); Red Blood Count 3.11 10^6/ul (4.0-5.4); Red Cell Distribution Width 19 % (10.5-15); White Blood Count 14.7 10^3/ul (3.5-10.8)
[2017-09-30] MEDS: Acetaminophen TAB* 325 MG PO PRN ×2 (07:26→19:57)
[2017-09-30 07:28] LABS: EGFR Non-African American 74.9 (>60)
[2017-09-30] MEDS: Furosemide IV* 10 MG/ML 2 ML VIAL (20 MG) IV SLOW PU SCH ×3 (08:06→23:55)
[2017-09-30] MEDS: Clopidogrel TAB* 75 MG PO SCH (09:19)
[2017-09-30] MEDS: Amiodarone TAB* 200 MG PO SCH (09:19)
[2017-09-30] MEDS: CMCS: Pantoprazole TAB (NF) 40 MG TAB PO SCH (09:19)
[2017-09-30] MEDS: Metoprolol Succinate XL TAB* 100 MG PO SCH (09:19)
[2017-09-30] MEDS: Docusate CAP* 100 MG PO SCH (09:20)
--- NOTE | 2017-09-30 09:47 | PN ---
Progress Note - Progress Note Date of Service: 09/30/17 Note: Surgery Progress: S: Pain 12/04 this a.m. Nsg reports heme + stool, though patient states he has had some hemorrhoids and recent straining w/ BMs. H&H is relatively stable. O: Vital Signs - 8 hr 09/30/17 09/30/17 09/30/17 03:34 08:00 08:30 Temperature 98.3 F 97.5 F Pulse Rate 55 58 Respiratory 16 18 18 Rate Blood Pressure 122/41 128/45 (mmHg) O2 Sat by Pulse 98 99 Oximetry RLE: moderate serosang drainage on dsg; moderate edema; mild to moderate tenderness posterior and anterior to wound (no sig change). Wound re-probed and packed w/ 07/31" plain pkg; no apparent undrained collection; well vladimir'd. A: s/p I&D R calf abscess; stable P: cont IV abx; wound care; I encouraged him to ambulate a bit more (he has been mostly bed to chair)
[2017-09-30] MEDS ORDERED: Ferric Gluconate IV* 125 MG in NS 0.9% 100 ML* 100 ML IVPB ONE (12:00)
--- NOTE | 2017-09-30 14:57 | RAD ---
Indication: Evaluate for abscess. Real-time sonography of the lateral calf in the area of wound was performed and compared to prior ultrasound dated September 16, [address] dated September 29, 2017. Echo complex fluid collection is now present in the area of prior fluid collection now measuring 5.0 x 2.2 x 5.0 cm. Adjacent edema is noted. This is larger than on previous exam. IMPRESSION: Echo complex fluid collection in the area of prior fluid collection now measuring 5.0 x 2.2 x 5.0 cm and appears to be larger than on prior exam.
[2017-09-30] MEDS: Atorvastatin* 40 MG TAB PO SCH (17:08)
--- NOTE | 2017-09-30 18:16 | PN ---
Subjective Date of Service: 09/30/17 Interval History: no overnight events, continues to have pain at the site of the ulcer. packing changed this morning. no fevers. Family History: Unchanged from Admission Social History: Unchanged from Admission Past Medical History: Unchanged from Admission Objective Active Medications: Acetaminophen (Tylenol Tab*) 650 mg PO Q6H PRN PRN Reason: FEVER/PAIN Last Admin: 09/30/17 07:26 Dose: 650 mg Albuterol (Ventolin 2.5 Mg/3 Ml Neb.Juany*) 2.5 mg INH Q2H PRN PRN Reason: SOB/WHEEZING Amiodarone HCl (Cordarone Tab*) 200 mg PO DAILY [facility] Last Admin: 09/30/17 09:19 Dose: 200 mg Atorvastatin Calcium (Lipitor*) 40 mg PO QPM [facility] Last Admin: 09/30/17 17:08 Dose: 40 mg Benzonatate (Tessalon Cap*) 100 mg PO BID PRN PRN Reason: COUGH Clopidogrel Bisulfate (Plavix Tab*) 75 mg PO DAILY [facility] Last Admin: 09/30/17 09:19 Dose: 75 mg Docusate Sodium (Colace Cap*) 100 mg PO DAILY [facility] Last Admin: 09/30/17 09:20 Dose: 100 mg Furosemide (Lasix Iv*) 40 mg IV SLOW PU Q8H [facility] Last Admin: 09/30/17 17:08 Dose: 40 mg Heparin Sodium (Porcine) (Heparin Flush Picc/Ml/Cvc(*)) 1 - 3 ml FLUSH 0600, 1800 [facility] PRN Reason: Protocol Last Admin: 09/30/17 17:08 Dose: 1 ml Cefazolin Sodium 2 gm/ Sodium (Chloride) 50 mls @ 200 mls/hr IVPB Q8H [facility] Last Admin: 09/30/17 14:36 Dose: 200 mls/hr Melatonin (Melatonin (Nf)) 3 mg PO BEDTIME PRN; Protocol PRN Reason: Sleep Last Admin: 09/27/17 21:59 Dose: 3 mg Metoprolol Succinate (Toprol Xl Tab*) 100 mg PO DAILY [facility] Last Admin: 09/30/17 09:19 Dose: 100 mg Ondansetron HCl (Zofran Inj*) 4 mg IV Q6H PRN PRN Reason: NAUSEA Pantoprazole Sodium (Protonix Tab (Nf)) 40 mg PO DAILY [facility] Last Admin: 09/30/17 09:19 Dose: 40 mg Pharmacy Profile Note (Coumadin Daily Reminder*) 1 note FOLLOW UP 1700 [facility] Last Admin: 09/30/17 17:09 Dose: 1 note Tramadol HCl (Ultram*) 50 mg PO Q6H PRN PRN Reason: PAIN Vital Signs - 8 hr 09/30/17 09/30/17 11:43 16:06 Temperature 97.4 F 98.3 F Pulse Rate 57 57 Respiratory 18 18 Rate Blood Pressure 123/43 124/45 (mmHg) O2 Sat by Pulse 99 100 Oximetry Oxygen Devices in Use Now: None Appearance: alert, sitting up in the chair Eyes: No Scleral Icterus Ears/Nose/Mouth/Throat: NL Teeth, Lips, Gums Neck: - - JVP Respiratory: Symmetrical Chest Expansion and Respiratory Effort, - - few crackles at the baseline Cardiovascular: NL Sounds; No Murmurs; No JVD, RRR Abdominal: NL Sounds; No Tenderness; No Distention Lymphatic: No Cervical Adenopathy Extremities: - - RLE edema and erythema>>L, ulcer packed with some reddish drainage Result Diagrams: 09/30/17 06:55 09/30/17 06:55 Additional Lab and Data: Laboratory Results - last 24 hr 09/29/17 09/29/17 09/29/17 06:14 06:14 06:14 WBC 12.1 H RBC 2.67 L Hgb 7.4 L Hct 22 L MCV 84 MCH 28 MCHC 33 RDW 19 H Plt Count 327 MPV 7 L Neut % (Auto) 80.6 Lymph % (Auto) 10.9 L [place] % (Auto) 7.0 Eos % (Auto) 0.8 Baso % (Auto) 0.7 Absolute Neuts (auto) 9.8 H Absolute Lymphs (auto) 1.3 Absolute Monos (auto) 0.8 Absolute Eos (auto) 0.1 Absolute Basos (auto) 0.1 Absolute Nucleated RBC 0 Nucleated RBC % 0 INR (Anticoag Therapy) 3.04 H Sodium 127 L Potassium 4.3 Chloride 94 L Carbon Dioxide 26 Anion Gap 7 BUN 24 Creatinine 0.93 Est GFR ( Amer) 101.1 Est GFR (Non-Af Amer) 78.6 BUN/Creatinine Ratio 25.8 H Glucose 107 H Calcium 9.0 Iron Cancelled TIBC Cancelled % Saturation Cancelled Unsat Iron Binding Cancelled Transferrin Cancelled Ferritin Cancelled B-Natriuretic Peptide 09/29/17 06:14 WBC RBC Hgb Hct MCV MCH MCHC RDW Plt Count MPV Neut % (Auto) Lymph % (Auto) [place] % (Auto) Eos % (Auto) Baso % (Auto) Absolute Neuts (auto) Absolute Lymphs (auto) Absolute Monos (auto) Absolute Eos (auto) Absolute Basos (auto) Absolute Nucleated RBC Nucleated RBC % INR (Anticoag Therapy) Sodium Potassium Chloride Carbon Dioxide Anion Gap BUN Creatinine Est GFR ( Amer) Est GFR (Non-Af Amer) BUN/Creatinine Ratio Glucose Calcium Iron TIBC % Saturation Unsat Iron Binding Transferrin Ferritin B-Natriuretic Peptide 1423 H Microbiology and Other Data: Microbiology 09/24/17 10:52 Blood Venous Aerobic Blood Culture - Final No Growth Day 5 09/24/17 10:52 Blood Venous Anaerobic Blood Culture - Final No Growth Day 5 09/24/17 18:00 Leg Right Skin and Soft Tissue MRSA/MSSA (PCR - Final Mrsa Negative S.aureus Positive 09/24/17 18:00 Leg Right Gram Stain - Final 09/24/17 18:00 Leg Right Wound Culture - Final Staphylococcus Aureus Peptoniphilus Asaccharolyticus 09/22/17 17:57 Blood Venous Aerobic Blood Culture - Final Staphylococcus Epidermidis 09/22/17 17:57 Blood Venous Anaerobic Blood Culture - Final Staphylococcus Epidermidis 09/22/17 17:57 Blood Venous Blood MRSA/MSSA (PCR) - Final Mrsa Negative S.aureus Negative 09/22/17 18:09 Blood Venous Aerobic Blood Culture - Final Staphylococcus Epidermidis 09/22/17 18:09 Blood Venous Anaerobic Blood Culture - Final Staphylococcus Epidermidis 09/22/17 18:09 Blood Venous Blood MRSA/MSSA (PCR) - Final Mrsa Negative S.aureus Negative 09/22/17 17:27 Leg Left Skin and Soft Tissue MRSA/MSSA (PCR - Final Mrsa Negative S.aureus Positive 09/22/17 17:27 Leg Left Gram Stain - Final 09/22/17 17:27 Leg Left Wound Culture - Final Staphylococcus Aureus Peptoniphilus Asaccharolyticus 09/22/17 14:06 Nasal Influenza Types A,B Antigen (IBETH) - Final Specimen received for Influenza A/B Molecular testing Assess/Plan/Problems-Billing 77 yo M PMH CAD, afib (on coumadin and amio), AV bioprosthetic replacement, PAD sp left femoral endarterectomy and iliac stent in 05/2017 who presented with chills and rigors that developed during imaging as outpatient. Strep Epidermidis Bacteremia treating with 6 weeks Ancef for IE given bioprosthetic valve. MSSA abscess RLE s/p ID. - Patient Problems (1) PAD (peripheral artery disease) Current Visit: Yes Status: Acute Code(s): I73.9 - PERIPHERAL VASCULAR DISEASE, UNSPECIFIED SNOMED Code(s): 200997789 Comment: s/p angioplasty in the right leg and stenting in the left ABIs from 09/22 0.45 on the right (this is after angioplasty) continue plavix and statin (2) Ulcer Current Visit: Yes Status: Acute Code(s): KGH9095 - SNOMED Code(s): 408834471 Comment: Likely due to PAD, which has already been intervened upon, but it seems that he still has significant disease, which may be contributing to the nonhealing nature of this ulcer. Abscess drained and now wound is packed. Continue daily packing. CT lower extremity obtained. some air bubbles, could not exclude residual abscess vs post I&D changes, recommended US. US shows fluid collection that is larger than it was prior (but it was packed at the time of US) will discuss this with surgery (3) Bacteremia Current Visit: Yes Status: Acute Code(s): R78.81 - BACTEREMIA SNOMED Code( s): 7031024 Comment: S epidermidus x 4 bottles from 10/20; then blood cultures negative . CARTER done did not show clear vegetation. 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 picc in place since 09/26; Continue cefazolin-plan on 2g IV q8hr after d/c. (4) CAD (coronary artery disease) Current Visit: Yes Status: Acute Code(s): I25.10 - ATHSCL HEART DISEASE OF [place] CORONARY ARTERY W/O ANG PCTRS SNOMED Code(s): 13828208 Comment: The patient has a h/o NSTEMI with stenting. Trop this admission mildly elevated. Likely secondary to demand in sepsis. No c/o chest pain. Will not work up further at this time. continue plavix, statin, beta-eileen (5) Acute on chronic systolic (congestive) heart failure Current Visit: Yes Status: Acute Code(s): I50.23 - ACUTE ON CHRONIC SYSTOLIC (CONGESTIVE) HEART FAILURE SNOMED Code(s): 225655789 Comment: Volume overloaded on exam. EF 45-50% on CARTER 09/25 continue lasix 40mg IV q8. strict io daily weights. Status and Disposition: inpatient
[2017-10-01] MEDS: Acetaminophen TAB* 325 MG PO PRN (04:47)
[2017-10-01] MEDS: ceFAZolin 1 GM VIAL(*) 2 GM in NS 0.9% 50 ML* 50 ML IVPB SCH ×3 (06:14→22:16)
[2017-10-01 06:58] LABS: ABS Basophils 0.1 10^3/ul (0-0.2); ABS Eosinophils 0.2 10^3/ul (0-0.6); ABS Lymphocytes 1.2 10^3/ul (1.0-4.8); ABS Monocytes 0.9 10^3/ul (0-0.8); ABS Neutrophils 9.2 10^3/ul (1.5-7.7); ABS Nucleated RBC 0 10^3/ul; Eosinophil % 1.6 % (0-6); Hematocrit 24 % (42-52); Hemoglobin 8.2 g/dl (14.0-18.0); Lymphocyte % 10.5 % (25-47); Mean Corpuscular HGB Conc 34 g/dl (31-36); Mean Corpuscular Hemoglobin 28 pg (27-31); Mean Corpuscular Volume 83 fL (80-94); Mean Platelet Volume 7 um3 (7.4-10.4); Nucleated Red Blood Cells % 0.1; Platelet Count 371 10^3/ul (150-450); Red Blood Count 2.88 10^6/ul (4.0-5.4); Red Cell Distribution Width 19 % (10.5-15); White Blood Count 11.6 10^3/ul (3.5-10.8)
[2017-10-01 07:06] LABS: INR 2.45 (0.77-1.02)
[2017-10-01 07:55] LABS: EGFR Non-African American 77.6 (>60)
[2017-10-01] MEDS: Furosemide IV* 10 MG/ML 2 ML VIAL (20 MG) IV SLOW PU SCH ×2 (08:48→16:36)
[2017-10-01] MEDS: Amiodarone TAB* 200 MG PO SCH (10:18)
[2017-10-01] MEDS: Clopidogrel TAB* 75 MG PO SCH (10:18)
[2017-10-01] MEDS: CMCS: Pantoprazole TAB (NF) 40 MG TAB PO SCH (10:18)
[2017-10-01] MEDS: Docusate CAP* 100 MG PO SCH (10:18)
[2017-10-01] MEDS: Metoprolol Succinate XL TAB* 100 MG PO SCH (10:24)
[2017-10-01] MEDS: traMADol TAB* 50 MG PO PRN (12:17)
[2017-10-01] MEDS ORDERED: Metolazone TAB* 5 MG PO ONE (15:30)
--- NOTE | 2017-10-01 16:04 | PN ---
Subjective Date of Service: 10/01/17 Interval History: still complains of pain intermittently in the leg, especially overnight. but he was able to sleep lying flat for the first time in several months. no shortness of breath, and cough is much better also. Family History: Unchanged from Admission Social History: Unchanged from Admission Past Medical History: Unchanged from Admission Objective Active Medications: Acetaminophen (Tylenol Tab*) 650 mg PO Q6H PRN PRN Reason: FEVER/PAIN Last Admin: 10/01/17 04:47 Dose: 650 mg Albuterol (Ventolin 2.5 Mg/3 Ml Neb.Juany*) 2.5 mg INH Q2H PRN PRN Reason: SOB/WHEEZING Amiodarone HCl (Cordarone Tab*) 200 mg PO DAILY [facility] Last Admin: 10/01/17 10:18 Dose: 200 mg Atorvastatin Calcium (Lipitor*) 40 mg PO QPM [facility] Last Admin: 09/30/17 17:08 Dose: 40 mg Benzonatate (Tessalon Cap*) 100 mg PO BID PRN PRN Reason: COUGH Last Admin: 09/30/17 22:31 Dose: 100 mg Clopidogrel Bisulfate (Plavix Tab*) 75 mg PO DAILY [facility] Last Admin: 10/01/17 10:18 Dose: 75 mg Docusate Sodium (Colace Cap*) 100 mg PO DAILY [facility] Last Admin: 10/01/17 10:18 Dose: 100 mg Furosemide (Lasix Iv*) 40 mg IV SLOW PU Q8H [facility] Last Admin: 10/01/17 08:48 Dose: 40 mg Heparin Sodium (Porcine) (Heparin Flush Picc/Ml/Cvc(*)) 1 - 3 ml FLUSH 0600, 1800 [facility] PRN Reason: Protocol Last Admin: 10/01/17 15:05 Dose: 1 ml Cefazolin Sodium 2 gm/ Sodium (Chloride) 50 mls @ 200 mls/hr IVPB Q8H [facility] Last Admin: 10/01/17 14:14 Dose: 200 mls/hr Melatonin (Melatonin (Nf)) 3 mg PO BEDTIME PRN; Protocol PRN Reason: Sleep Last Admin: 09/27/17 21:59 Dose: 3 mg Metoprolol Succinate (Toprol Xl Tab*) 100 mg PO DAILY [facility] Last Admin: 10/01/17 10:24 Dose: Not Given Ondansetron HCl (Zofran Inj*) 4 mg IV Q6H PRN PRN Reason: NAUSEA Pantoprazole Sodium (Protonix Tab (Nf)) 40 mg PO DAILY [facility] Last Admin: 10/01/17 10:18 Dose: 40 mg Pharmacy Profile Note (Coumadin Daily Reminder*) 1 note FOLLOW UP 1700 [facility] Last Admin: 09/30/17 17:09 Dose: 1 note Tramadol HCl (Ultram*) 50 mg PO Q6H PRN PRN Reason: PAIN Last Admin: 10/01/17 12:17 Dose: 50 mg Vital Signs - 8 hr 10/01/17 10/01/17 10/01/17 08:00 09:59 11:11 Temperature 97.7 F Pulse Rate 56 54 Respiratory 16 20 Rate Blood Pressure 120/50 108/39 (mmHg) O2 Sat by Pulse 98 Oximetry 10/01/17 10/01/17 10/01/17 12:17 13:39 15:33 Temperature 97.6 F 97.5 F Pulse Rate 56 60 Respiratory 18 20 20 Rate Blood Pressure 118/58 137/48 (mmHg) O2 Sat by Pulse 99 99 Oximetry 10/01/17 15:51 Temperature Pulse Rate Respiratory 20 Rate Blood Pressure (mmHg) O2 Sat by Pulse Oximetry Oxygen Devices in Use Now: None Appearance: alert, sitting up in recliner, no distress but has pain when he moves his right leg Eyes: No Scleral Icterus Ears/Nose/Mouth/Throat: NL Teeth, Lips, Gums Neck: - - JVP ~10cm Respiratory: Symmetrical Chest Expansion and Respiratory Effort, Clear to Auscultation Cardiovascular: RRR, - - systolic murmur rusb, healed sternotomy incision Abdominal: - - reducible umbilical hernia Lymphatic: No Cervical Adenopathy Extremities: - Neurological: Alert and Oriented x 3 Result Diagrams: 10/01/17 06:20 10/01/17 06:20 Additional Lab and Data: Laboratory Results - last 24 hr 09/29/17 09/29/17 09/29/17 06:14 06:14 06:14 WBC 12.1 H RBC 2.67 L Hgb 7.4 L Hct 22 L MCV 84 MCH 28 MCHC 33 RDW 19 H Plt Count 327 MPV 7 L Neut % (Auto) 80.6 Lymph % (Auto) 10.9 L [place] % (Auto) 7.0 Eos % (Auto) 0.8 Baso % (Auto) 0.7 Absolute Neuts (auto) 9.8 H Absolute Lymphs (auto) 1.3 Absolute Monos (auto) 0.8 Absolute Eos (auto) 0.1 Absolute Basos (auto) 0.1 Absolute Nucleated RBC 0 Nucleated RBC % 0 INR (Anticoag Therapy) 3.04 H Sodium 127 L Potassium 4.3 Chloride 94 L Carbon Dioxide 26 Anion Gap 7 BUN 24 Creatinine 0.93 Est GFR ( Amer) 101.1 Est GFR (Non-Af Amer) 78.6 BUN/Creatinine Ratio 25.8 H Glucose 107 H Calcium 9.0 Iron Cancelled TIBC Cancelled % Saturation Cancelled Unsat Iron Binding Cancelled Transferrin Cancelled Ferritin Cancelled B-Natriuretic Peptide 09/29/17 06:14 WBC RBC Hgb Hct MCV MCH MCHC RDW Plt Count MPV Neut % (Auto) Lymph % (Auto) [place] % (Auto) Eos % (Auto) Baso % (Auto) Absolute Neuts (auto) Absolute Lymphs (auto) Absolute Monos (auto) Absolute Eos (auto) Absolute Basos (auto) Absolute Nucleated RBC Nucleated RBC % INR (Anticoag Therapy) Sodium Potassium Chloride Carbon Dioxide Anion Gap BUN Creatinine Est GFR ( Amer) Est GFR (Non-Af Amer) BUN/Creatinine Ratio Glucose Calcium Iron TIBC % Saturation Unsat Iron Binding Transferrin Ferritin B-Natriuretic Peptide 1423 H Microbiology and Other Data: Microbiology 09/24/17 10:52 Blood Venous Aerobic Blood Culture - Final No Growth Day 5 09/24/17 10:52 Blood Venous Anaerobic Blood Culture - Final No Growth Day 5 09/24/17 18:00 Leg Right Skin and Soft Tissue MRSA/MSSA (PCR - Final Mrsa Negative S.aureus Positive 09/24/17 18:00 Leg Right Gram Stain - Final 09/24/17 18:00 Leg Right Wound Culture - Final Staphylococcus Aureus Peptoniphilus Asaccharolyticus 09/22/17 17:57 Blood Venous Aerobic Blood Culture - Final Staphylococcus Epidermidis 09/22/17 17:57 Blood Venous Anaerobic Blood Culture - Final Staphylococcus Epidermidis 09/22/17 17:57 Blood Venous Blood MRSA/MSSA (PCR) - Final Mrsa Negative S.aureus Negative 09/22/17 18:09 Blood Venous Aerobic Blood Culture - Final Staphylococcus Epidermidis 09/22/17 18:09 Blood Venous Anaerobic Blood Culture - Final Staphylococcus Epidermidis 09/22/17 18:09 Blood Venous Blood MRSA/MSSA (PCR) - Final Mrsa Negative S.aureus Negative 09/22/17 17:27 Leg Left Skin and Soft Tissue MRSA/MSSA (PCR - Final Mrsa Negative S.aureus Positive 09/22/17 17:27 Leg Left Gram Stain - Final 09/22/17 17:27 Leg Left Wound Culture - Final Staphylococcus Aureus Peptoniphilus Asaccharolyticus 09/22/17 14:06 Nasal Influenza Types A,B Antigen (IBETH) - Final Specimen received for Influenza A/B Molecular testing Assess/Plan/Problems-Billing 77 yo M PMH CAD, afib (on coumadin and amio), AV bioprosthetic replacement, PAD sp left femoral endarterectomy and iliac stent in 05/2017 who presented with chills and rigors that developed during imaging as outpatient. Strep Epidermidis Bacteremia treating with 6 weeks Ancef for IE given bioprosthetic valve. MSSA abscess RLE s/p ID. - Patient Problems (1) PAD (peripheral artery disease) Current Visit: Yes Status: Acute Code(s): I73.9 - PERIPHERAL VASCULAR DISEASE, UNSPECIFIED SNOMED Code(s): 655118746 Comment: Records reviewed from [facility]--he has NOT had angioplasty on the right leg as reported. Case discussed with Dr. Santana and consult requested; I am concerned that he will have ongoing poor wound healing, especially post-operatively, with insufficient arterial flow. Continue plavix and statin. (2) Ulcer Current Visit: Yes Status: Acute Code(s): VWM3763 - SNOMED Code(s): 362196730 Comment: Repeat US yesterday showed enlarging abscess posterior to ulcer Case discussed again with general surgery; plan for washout later this week Hold warfarin for OR Continue cefazolin (3) Bacteremia Current Visit: Yes Status: Acute Code(s): R78.81 - BACTEREMIA SNOMED Code( s): 9759225 Comment: S epidermidus x 4 bottles from 10/20; then blood cultures negative . CARTER done did not show clear vegetation. 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 picc in place since 09/26 Continue cefazolin (4) CAD (coronary artery disease) Current Visit: Yes Status: Acute Code(s): I25.10 - ATHSCL HEART DISEASE OF [place] CORONARY ARTERY W/O ANG PCTRS SNOMED Code(s): 65280477 Comment: He had a STEMI on his admission to [facility] in June and has a stent in the LAD. Continue plavix, metoprolol, statin. (5) Acute on chronic systolic (congestive) heart failure Current Visit: Yes Status: Acute Code(s): I50.23 - ACUTE ON CHRONIC SYSTOLIC (CONGESTIVE) HEART FAILURE SNOMED Code(s): 381350250 Comment: Still mildly volume overloaded, but markedly improved today. Orthopnea improved, JVP improving. EF 45-50% on CARTER 09/25 continue lasix 40mg IV q8. strict io daily weights. (6) DVT (deep venous thrombosis) Current Visit: Yes Status: Acute Code(s): I82.409 - ACUTE EMBOLISM AND THOMBOS UNSP DEEP VN UNSP LOWER EXTREMITY SNOMED Code(s): 379885017 Comment: DVT in June at [facility] hospitalization therapeutic on warfarin; holding for OR plans. When INR < 2.0, will plan to start heparin as a bridge for the OR. Status and Disposition: inpatient, plan for OR for washout, cardiology evaluation for PVD
[2017-10-01] MEDS ORDERED: Warfarin TAB(*) 2 MG PO SCH (17:00)
[2017-10-01] MEDS: Atorvastatin* 40 MG TAB PO SCH (18:21)
[2017-10-02] MEDS: Furosemide IV* 10 MG/ML 2 ML VIAL (20 MG) IV SLOW PU SCH ×3 (01:17→16:03)
[2017-10-02] MEDS: traMADol TAB* 50 MG PO PRN (03:57)
[2017-10-02] MEDS: ceFAZolin 1 GM VIAL(*) 2 GM in NS 0.9% 50 ML* 50 ML IVPB SCH ×2 (05:50→13:20)
[2017-10-02 06:09] LABS: ABS Basophils 0.1 10^3/ul (0-0.2); ABS Eosinophils 0.2 10^3/ul (0-0.6); ABS Lymphocytes 1.4 10^3/ul (1.0-4.8); ABS Monocytes 0.9 10^3/ul (0-0.8); ABS Neutrophils 10.4 10^3/ul (1.5-7.7); ABS Nucleated RBC 0 10^3/ul; Eosinophil % 1.3 % (0-6); Hematocrit 25 % (42-52); Hemoglobin 8.4 g/dl (14.0-18.0); Mean Corpuscular HGB Conc 33 g/dl (31-36); Mean Corpuscular Hemoglobin 28 pg (27-31); Mean Corpuscular Volume 83 fL (80-94); Mean Platelet Volume 7 um3 (7.4-10.4); Nucleated Red Blood Cells % 0; Platelet Count 424 10^3/ul (150-450); Red Blood Count 3.02 10^6/ul (4.0-5.4); Red Cell Distribution Width 20 % (10.5-15)
[2017-10-02 06:36] LABS: INR 2.07 (0.77-1.02)
[2017-10-02] MEDS: Clopidogrel TAB* 75 MG PO SCH (09:31)
[2017-10-02] MEDS: Amiodarone TAB* 200 MG PO SCH (09:31)
[2017-10-02] MEDS: Metoprolol Succinate XL TAB* 100 MG PO SCH (09:31)
[2017-10-02] MEDS: Docusate CAP* 100 MG PO SCH (09:32)
[2017-10-02] MEDS: CMCS: Pantoprazole TAB (NF) 40 MG TAB PO SCH (09:32)
--- NOTE | 2017-10-02 09:32 | PN ---
Progress Note - Progress Note Date of Service: 10/02/17 SOAP: Subjective: CC: right leg wound HPI: 77 year old man with prosthetic AV and right leg wound with abscess; right leg and calf pain. No fever, rash or diarrhea. Objective: Vital Signs Temp 36.9 C 10/02/17 07:13 Pulse 60 10/02/17 07:13 Resp 16 10/02/17 07:55 BP 134/50 10/02/17 07:13 Pulse Ox 98 10/02/17 07:13 Intake & Output 10/01/17 10/02/17 10/02/17 18:59 06:59 18:59 Intake Total 1312 280 Output Total 1525 1025 300 Balance -213 745 -300 Weight 185 lb 12.8 oz Intake: IV Fluids 27 NS (0.9%) 27 IVPB 100 100 ABX - CEFAZOLIN 100 100 Oral 1185 180 Output: Urine 1525 1025 300 Other: Date of Last Bowel october 01 Movement # Bowel Movements 1 0 Estimated Stool Amount Large Gen:awake,no distress HEENT:PERRL, MMM Heart:RRR no murmur Lungs:CTA BL Abd:+BS NTND soft Skin: no rash MSK: R calf pain, edema, induration, central incision with serous drainage, no crepitus or fluctuance Assessment: 1. MSSA abscess right leg, ongoing pain and induration 2. Staph epi bacteremia 4/4 BC bottles; CARTER no vegetation however prosthetic valve so infective endocarditis 3. s/p AVR 4. PAD s/p L iliac stent Plan: 1. ancef 2 gm IV Q8hrs day 2. Vascular and surgical evaluation ongoing Discussed with Dr Downing
[2017-10-02] MEDS: Acetaminophen TAB* 325 MG PO PRN (14:36)
[2017-10-02] MEDS ORDERED: ceFAZolin 1 GM VIAL(*) 2 GM in NS 0.9% 100 ML* 100 ML IVPB SCH (15:15)
--- NOTE | 2017-10-02 16:02 | PN ---
Progress Note - Progress Note Date of Service: 10/02/17 SOAP: Subjective: Pt seen adn chart reviewed. Case and images d/w radiology earlier this week. Pt continues to have pain and RLE Objective: afebrile R leg; packing in place. Erythema improved. 3+ pitting edema. WBC remains elevated US and CT reviewed: concern for deep abscess Assessment: cellulitis and possible dep abscess at RLE Plan: OR tomorrow for Incision and drainage of right lower leg lesion cont abx anticoagulation has been held NPO at midnight Pt aware of R/B/A to procedure and agrees to proceed.
[2017-10-02] MEDS: Atorvastatin* 40 MG TAB PO SCH (18:08)
--- NOTE | 2017-10-02 18:43 | PN ---
Subjective Date of Service: 10/02/17 Interval History: Feeling better today. His pain is controlled and he is able to lie in bed. No fevers, no chest pain, shortness of breath, nausea. Good appetite. Family History: Unchanged from Admission Social History: Unchanged from Admission Past Medical History: Unchanged from Admission Objective Active Medications: Acetaminophen (Tylenol Tab*) 650 mg PO Q6H PRN PRN Reason: FEVER/PAIN Last Admin: 10/02/17 14:36 Dose: 650 mg Albuterol (Ventolin 2.5 Mg/3 Ml Neb.Juany*) 2.5 mg INH Q2H PRN PRN Reason: SOB/WHEEZING Amiodarone HCl (Cordarone Tab*) 200 mg PO DAILY [facility] Last Admin: 10/02/17 09:31 Dose: 200 mg Atorvastatin Calcium (Lipitor*) 40 mg PO QPM [facility] Last Admin: 10/02/17 18:08 Dose: 40 mg Benzonatate (Tessalon Cap*) 100 mg PO BID PRN PRN Reason: COUGH Last Admin: 09/30/17 22:31 Dose: 100 mg Clopidogrel Bisulfate (Plavix Tab*) 75 mg PO DAILY [facility] Last Admin: 10/02/17 09:31 Dose: 75 mg Docusate Sodium (Colace Cap*) 100 mg PO DAILY [facility] Last Admin: 10/02/17 09:32 Dose: 100 mg Furosemide (Lasix Iv*) 80 mg IV SLOW PU 0900,1700 [facility] Heparin Sodium (Porcine) (Heparin Flush Picc/Ml/Cvc(*)) 1 - 3 ml FLUSH 0600, 1800 [facility] PRN Reason: Protocol Last Admin: 10/02/17 18:08 Dose: Not Given Cefazolin Sodium 2 gm/ Sodium (Chloride) 100 mls @ 400 mls/hr IVPB Q8HR [facility] Melatonin (Melatonin (Nf)) 3 mg PO BEDTIME PRN; Protocol PRN Reason: Sleep Last Admin: 09/27/17 21:59 Dose: 3 mg Metoprolol Succinate (Toprol Xl Tab*) 100 mg PO DAILY [facility] Last Admin: 10/02/17 09:31 Dose: 100 mg Ondansetron HCl (Zofran Inj*) 4 mg IV Q6H PRN PRN Reason: NAUSEA Pantoprazole Sodium (Protonix Tab (Nf)) 40 mg PO DAILY [facility] Last Admin: 10/02/17 09:32 Dose: 40 mg Pharmacy Profile Note (Coumadin Daily Reminder*) 1 note FOLLOW UP 1700 DANIEL Last Admin: 10/02/17 16:15 Dose: 1 note Tramadol HCl (Ultram*) 50 mg PO Q6H PRN PRN Reason: PAIN Last Admin: 10/02/17 03:57 Dose: 50 mg Vital Signs - 8 hr 10/02/17 10/02/17 10/02/17 11:53 14:00 14:13 Temperature 97.3 F 97.5 F Pulse Rate 58 58 58 Respiratory 20 16 Rate Blood Pressure 122/40 117/40 (mmHg) O2 Sat by Pulse 99 99 Oximetry 10/02/17 15:11 Temperature 97.6 F Pulse Rate 56 Respiratory 18 Rate Blood Pressure 123/42 (mmHg) O2 Sat by Pulse 99 Oximetry Oxygen Devices in Use Now: None Appearance: alert, sitting up eating sherbert Eyes: No Scleral Icterus Ears/Nose/Mouth/Throat: NL Teeth, Lips, Gums Neck: - - jugular veins are flat sitting up in chair Respiratory: - - few crackles at the bases Cardiovascular: - - systolic murmur throughout, no S3, S4 Abdominal: - - umbilical hernia Lymphatic: No Cervical Adenopathy Extremities: - - RLE >> LLE with tenderness around ulcer, some fluctuation Neurological: Alert and Oriented x 3 Result Diagrams: 10/02/17 05:49 10/02/17 05:49 Additional Lab and Data: Laboratory Results - last 24 hr 09/29/17 09/29/17 09/29/17 06:14 06:14 06:14 WBC 12.1 H RBC 2.67 L Hgb 7.4 L Hct 22 L MCV 84 MCH 28 MCHC 33 RDW 19 H Plt Count 327 MPV 7 L Neut % (Auto) 80.6 Lymph % (Auto) 10.9 L [place] % (Auto) 7.0 Eos % (Auto) 0.8 Baso % (Auto) 0.7 Absolute Neuts (auto) 9.8 H Absolute Lymphs (auto) 1.3 Absolute Monos (auto) 0.8 Absolute Eos (auto) 0.1 Absolute Basos (auto) 0.1 Absolute Nucleated RBC 0 Nucleated RBC % 0 INR (Anticoag Therapy) 3.04 H Sodium 127 L Potassium 4.3 Chloride 94 L Carbon Dioxide 26 Anion Gap 7 BUN 24 Creatinine 0.93 Est GFR ( Amer) 101.1 Est GFR (Non-Af Amer) 78.6 BUN/Creatinine Ratio 25.8 H Glucose 107 H Calcium 9.0 Iron Cancelled TIBC Cancelled % Saturation Cancelled Unsat Iron Binding Cancelled Transferrin Cancelled Ferritin Cancelled B-Natriuretic Peptide 09/29/17 06:14 WBC RBC Hgb Hct MCV MCH MCHC RDW Plt Count MPV Neut % (Auto) Lymph % (Auto) [place] % (Auto) Eos % (Auto) Baso % (Auto) Absolute Neuts (auto) Absolute Lymphs (auto) Absolute Monos (auto) Absolute Eos (auto) Absolute Basos (auto) Absolute Nucleated RBC Nucleated RBC % INR (Anticoag Therapy) Sodium Potassium Chloride Carbon Dioxide Anion Gap BUN Creatinine Est GFR ( Amer) Est GFR (Non-Af Amer) BUN/Creatinine Ratio Glucose Calcium Iron TIBC % Saturation Unsat Iron Binding Transferrin Ferritin B-Natriuretic Peptide 1423 H Microbiology and Other Data: Microbiology 09/24/17 10:52 Blood Venous Aerobic Blood Culture - Final No Growth Day 5 09/24/17 10:52 Blood Venous Anaerobic Blood Culture - Final No Growth Day 5 09/24/17 18:00 Leg Right Skin and Soft Tissue MRSA/MSSA (PCR - Final Mrsa Negative S.aureus Positive 09/24/17 18:00 Leg Right Gram Stain - Final 09/24/17 18:00 Leg Right Wound Culture - Final Staphylococcus Aureus Peptoniphilus Asaccharolyticus 09/22/17 17:57 Blood Venous Aerobic Blood Culture - Final Staphylococcus Epidermidis 09/22/17 17:57 Blood Venous Anaerobic Blood Culture - Final Staphylococcus Epidermidis 09/22/17 17:57 Blood Venous Blood MRSA/MSSA (PCR) - Final Mrsa Negative S.aureus Negative 09/22/17 18:09 Blood Venous Aerobic Blood Culture - Final Staphylococcus Epidermidis 09/22/17 18:09 Blood Venous Anaerobic Blood Culture - Final Staphylococcus Epidermidis 09/22/17 18:09 Blood Venous Blood MRSA/MSSA (PCR) - Final Mrsa Negative S.aureus Negative 09/22/17 17:27 Leg Left Skin and Soft Tissue MRSA/MSSA (PCR - Final Mrsa Negative S.aureus Positive 09/22/17 17:27 Leg Left Gram Stain - Final 09/22/17 17:27 Leg Left Wound Culture - Final Staphylococcus Aureus Peptoniphilus Asaccharolyticus 09/22/17 14:06 Nasal Influenza Types A,B Antigen (IBETH) - Final Specimen received for Influenza A/B Molecular testing Assess/Plan/Problems-Billing 77 yo M PMH CAD, afib (on coumadin and amio), AV bioprosthetic replacement, PAD sp left femoral endarterectomy and iliac stent in 05/2017 who presented with chills and rigors that developed during imaging as outpatient. Strep Epidermidis Bacteremia treating with 6 weeks Ancef for IE given bioprosthetic valve. MSSA abscess RLE s/p ID. - Patient Problems (1) PAD (peripheral artery disease) Current Visit: Yes Status: Acute Code(s): I73.9 - PERIPHERAL VASCULAR DISEASE, UNSPECIFIED SNOMED Code(s): 698583449 Comment: Evaluated by Dr. Santana; given the location of his ulcer, PAD is not likely to have contributed as the etiology. Records reviewed from [facility]--he has NOT had angioplasty on the right leg as reported. Continue plavix and statin. (2) Ulcer Current Visit: Yes Status: Acute Code(s): LWD0580 - SNOMED Code(s): 792706789 Comment: 5x2cm abscess posterior to ulcer Plan for washout tomorrow Hold warfarin for OR Continue cefazolin (3) Bacteremia Current Visit: Yes Status: Acute Code(s): R78.81 - BACTEREMIA SNOMED Code( s): 2118546 Comment: S epidermidus x 4 bottles from 10/20; then blood cultures negative . CARTER done did not show clear vegetation. 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 picc in place since 09/26 Continue cefazolin (4) CAD (coronary artery disease) Current Visit: Yes Status: Acute Code(s): I25.10 - ATHSCL HEART DISEASE OF [place] CORONARY ARTERY W/O ANG PCTRS SNOMED Code(s): 63724138 Comment: He had a STEMI on his admission to [facility] in June and has a stent in the LAD. Continue plavix, metoprolol, statin. (5) Acute on chronic systolic (congestive) heart failure Current Visit: Yes Status: Acute Code(s): I50.23 - ACUTE ON CHRONIC SYSTOLIC (CONGESTIVE) HEART FAILURE SNOMED Code(s): 190466035 Comment: Still mildly volume overloaded, but markedly improved today. Orthopnea improved, JVP improving. EF 45-50% on CARTER 09/25 change lasix to 80mg BID. strict io daily weights. would benefit from an JULES-inhibitor; will check cardiology records to see why he is not on one. (6) DVT (deep venous thrombosis) Current Visit: Yes Status: Acute Code(s): I82.409 - ACUTE EMBOLISM AND THOMBOS UNSP DEEP VN UNSP LOWER EXTREMITY SNOMED Code(s): 836967401 Comment: DVT in June at [facility] hospitalization therapeutic on warfarin; holding for OR plans. When INR < 2.0, will plan to start heparin as a bridge for the OR. Status and Disposition: inpatient
[2017-10-02] MEDS ORDERED: Furosemide IV* 10 MG/ML 2 ML VIAL (20 MG) IV SLOW PU SCH (21:00)
--- NOTE | 2017-10-02 21:34 | CONS ---
CC: Dr. Welch; Dr. Willingham; Dr. Garland * INTERVENTIONAL CARDIOLOGY CONSULT NOTE: DATE OF CONSULT: 10/02/17 PRIMARY CARE PHYSICIAN: Dr. Welch. AUTOMOTIVE WHOLESALE PARTS ADVISOR: Dr. Willingham. VASCULAR SURGEON: Dr. Garland. HISTORY OF PRESENT ILLNESS: A 77-year-old male with complex medical history with deep abscess right calf. I was consulted for an opinion regarding possible ischemic etiology to his wound. He has an extremely complex past history. I have reviewed his records from [facility]. In brief, in May 2017, he had right common femoral artery endarterectomy with a patch repair as well as stenting of the left internal iliac artery with a 9 x 59 stent graft for bilateral claudication. The records do not include any detailed angiographic anatomy of his right leg or his distal left leg. Preop ABIs included the right posterior tibial of 0.48 and right dorsalis pedis of 0.51. A day after his vascular surgery, he had a non-ST elevation infarct complicated by cardiogenic shock and pulmonary edema, cardiac cath revealed CLOSING COORDINATOR of the circumflex origin, normal RCA, and 80% thrombotic very proximal LAD lesion extending into the left main. He had an intraaortic balloon pump placed via the right common femoral artery, the left main/LAD was stented with a 3.25 x 15 drug- eluting stent. His postop course was notable for slow convalescence, paroxysmal atrial fibrillation, as well as DVT of the right gastrocnemius veins. He relates, confirmed by his , that he had a small scab on the lateral aspect of his right calf in the area of the current wound pretty much after his vascular surgery and that this has been draining off and on ever since. He was eventually discharged, in June of last year he had a right abdominal wall hematoma while on anticoagulation, had hypovolemic shock, was transferred back to [facility]. Records from that admission mentioned a venous thrombosis of the soleus vein. There is no mention in those records of the wound on his calf. During that admission, the left lower extremity ultrasound did describe no flow in the distal left common femoral artery or SFA. Repeat right leg KIRSTEN here on 09/22/17, right posterior tibial was 0.45, right dorsalis pedis 0.43, somewhat lower than the values from last May. He was admitted here on 09/22/17 with a deep wound abscess in his right calf. He also had positive blood cultures for Staph epi and Staph aureus in the wound. He is scheduled to have drainage of the wound tomorrow. He denies any history of right leg distal wounds or rest pain, has not had any left leg rest pain, but did have a left heel ulcer last fall which did heal up before his vascular surgery. He currently has no rest pain. He has been diuresed for peripheral edema, does prefer to sleep upright in the chair. He has had a CARTER without evidence of endocarditis on his bioprosthetic aortic valve from 2008. PAST MEDICAL HISTORY: 1. CKD, status post AVR in 2008, tissue valve. 2. 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 3. CA of the bladder. 4. Below knee DVT as above. 5. History of atrial fibrillation. 6. Hypertension. 7. Hyperlipidemia. CURRENT MEDICATIONS: 1. Amiodarone 200 mg daily. 2. Lipitor 40 daily. 3. Plavix 75 daily. 4. Ancef. 5. Lasix 40 mg. 6. Metolazone 5 mg one time. 7. Metoprolol 100 mg daily. 8. Protonix. 9. Tramadol. 10. Coumadin. SOCIAL HISTORY: Remote smoker. REVIEW OF SYSTEMS: See his H and P. PHYSICAL EXAM: He is in a chair, he is not dyspneic or tachypneic. His blood pressure today 123/42. He is afebrile. Pulse is in the 50s. His rhythm is regular. Lungs: He has a few rhonchi on the left, none on the right. JVP is not elevated, sitting, carotids unremarkable. Cardiac Exam: Regular rhythm, he has a very brief slow murmur. Abdominal aorta without bruit. It is difficult to feel his femoral pulses in the sitting position. He has a dressing over the right calf where he has a wound on the lateral aspect. I did not remove the dressing. His right foot is more swollen than the left. He does have chronic venous stasis changes. I cannot feel pedal pulses in either foot. DIAGNOSTIC STUDIES/LAB DATA: White count today is 13,000, hemoglobin 8.4. Sodium 131, BUN 20, creatinine 0.86. His BNP is high at 1423. IMPRESSION: Right calf abscess. This is a very unusual location for an ischemic wound. It is tempting to speculate that. It may be related to the deep venous thrombosis that he experienced last May, although I think this is a very unusual complication of DVT. He has chronic bilateral lower extremity ischemia without rest pain. We have no details of his right lower extremity anatomy. Other than that by inference, he is patent from the right common femoral to the aorta as he was able to have a balloon pump placed last May. 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 Given the unusual wound location, I do not have personal experience with wound healing in this area in patients with PAD, but I suspect that there is a high likelihood that he will heal after drainage and treatment of infection. However, if he does not, SFA revascularization would be a reasonable consideration. However, this will not become apparent for at least several weeks or longer if the wound fails to heal. Whether he is a percutaneous candidate for right SFA revascularization in that circumstance would depend on his anatomy, including the length of SFA and/ or popliteal disease as well as the location of reconstitution. Given his experience in May, I do consider him to be a poor candidate for surgical revascularization because of high risk. RECOMMENDATION: Proceed with wound treatment as you are doing. If he has failure to heal of the right calf wound, I would begin with a CT angiogram of the right lower extremity to define his SFA and popliteal anatomy and then consider revascularization based on the findings. Thanks for the consultation, please let me know if I could be of any further help. [id number]/[facility] #: [id number] SULAIMAN
[2017-10-02] MEDS: ceFAZolin 1 GM VIAL(*) 2 GM in NS 0.9% 100 ML* 100 ML IVPB SCH (23:08)
[2017-10-03] MEDS: ceFAZolin 1 GM VIAL(*) 2 GM in NS 0.9% 100 ML* 100 ML IVPB SCH ×3 (05:50→22:59)
[2017-10-03 06:20] LABS: ABS Basophils 0.1 10^3/ul (0-0.2); ABS Eosinophils 0.2 10^3/ul (0-0.6); ABS Lymphocytes 1.4 10^3/ul (1.0-4.8); ABS Monocytes 0.9 10^3/ul (0-0.8); ABS Neutrophils 9.6 10^3/ul (1.5-7.7); ABS Nucleated RBC 0 10^3/ul; Eosinophil % 1.8 % (0-6); Hematocrit 26 % (42-52); Hemoglobin 8.8 g/dl (14.0-18.0); Lymphocyte % 11.8 % (25-47); Mean Corpuscular HGB Conc 33 g/dl (31-36); Mean Corpuscular Hemoglobin 28 pg (27-31); Mean Corpuscular Volume 83 fL (80-94); Mean Platelet Volume 7 um3 (7.4-10.4); Nucleated Red Blood Cells % 0; Platelet Count 456 10^3/ul (150-450); Red Blood Count 3.16 10^6/ul (4.0-5.4); Red Cell Distribution Width 20 % (10.5-15); White Blood Count 12.3 10^3/ul (3.5-10.8)
[2017-10-03 06:40] LABS: EGFR Non-African American 80.6 (>60)
[2017-10-03 06:41] LABS: INR 1.74 (0.77-1.02)
[2017-10-03] MEDS ORDERED: Buffered Lidocaine 0.9% SYRIN* 5 ML/SYR SYRINGE INTRADERM ONE (07:51)
[2017-10-03] MEDS ORDERED: NS 0.9% 1000 ML* 1,000 ML IV SCH (08:00)
[2017-10-03] MEDS ORDERED: Furosemide IV* 10 MG/ML 10 ML VIAL (100 MG) IV SCH (09:00)
[2017-10-03] MEDS: Docusate CAP* 100 MG PO SCH (09:45)
[2017-10-03] MEDS: Metoprolol Succinate XL TAB* 100 MG PO SCH ×2 (09:45→09:56)
[2017-10-03] MEDS: Amiodarone TAB* 200 MG PO SCH ×2 (09:45→09:54)
[2017-10-03] MEDS: Clopidogrel TAB* 75 MG PO SCH (09:48)
[2017-10-03] MEDS: CMCS: Pantoprazole TAB (NF) 40 MG TAB PO SCH (09:51)
[2017-10-03] MEDS ORDERED: Midazolam* 1 MG/ML 2 ML VIAL (2 MG) ONE ×2 (10:30→12:22)
[2017-10-03] MEDS ORDERED: fentaNYL* 50 MCG/ML 2 ML VIAL (100 MCG VIAL) ONE (10:30)
[2017-10-03] MEDS ORDERED: KETAMINE HCL* 50 MG/ML 10 ML VIAL ONE (11:53)
[2017-10-03] MEDS ORDERED: Lidocaine 2% PF * 5 ML VIAL ONE (11:58)
[2017-10-03] MEDS ORDERED: Lidocaine 1% MPF wEPI 200,000* 30 ML SDV ONE (12:04)
[2017-10-03] MEDS ORDERED: Naloxone* 0.4 MG/ML 1 ML VIAL IV PRN (12:18)
[2017-10-03] MEDS ORDERED: Acetaminophen TAB* 325 MG ONE (13:03)
[2017-10-03] MEDS: Acetaminophen TAB* 325 MG PO PRN (13:04)
[2017-10-03] MEDS ORDERED: Magnesium Sulfate 2 GM IV* 2 GM/50 ML BAG IVPB ONE (15:51)
--- NOTE | 2017-10-03 15:53 | PN ---
Subjective Date of Service: 10/03/17 Interval History: to OR today with Dr. Ignacio leg not painful post procedure. No abscess identified. However surgery concern for poor perfusion given ischemic pfeiffer looking muscle. CT abdominal aorta with run off ordered to define potential peripheral arterial disease. Dr. Ignacio discussed with Dr. Rees (vascular surgeon). Family History: Unchanged from Admission Social History: Unchanged from Admission Past Medical History: Unchanged from Admission Objective Active Medications: Acetaminophen (Tylenol Tab*) 650 mg PO Q6H PRN PRN Reason: FEVER/PAIN Last Admin: 10/03/17 13:04 Dose: 650 mg Albuterol (Ventolin 2.5 Mg/3 Ml Neb.Juany*) 2.5 mg INH Q2H PRN PRN Reason: SOB/WHEEZING Amiodarone HCl (Cordarone Tab*) 200 mg PO DAILY [facility] Last Admin: 10/03/17 09:54 Dose: 200 mg Atorvastatin Calcium (Lipitor*) 40 mg PO QPM [facility] Last Admin: 10/02/17 18:08 Dose: 40 mg Benzonatate (Tessalon Cap*) 100 mg PO BID PRN PRN Reason: COUGH Last Admin: 09/30/17 22:31 Dose: 100 mg Clopidogrel Bisulfate (Plavix Tab*) 75 mg PO DAILY [facility] Last Admin: 10/03/17 09:48 Dose: Not Given Docusate Sodium (Colace Cap*) 100 mg PO DAILY [facility] Last Admin: 10/03/17 09:45 Dose: 100 mg Furosemide (Lasix Iv*) 80 mg IV 0900,1700 [facility] Last Admin: 10/03/17 09:45 Dose: 80 mg Heparin Sodium (Porcine) (Heparin Flush Picc/Ml/Cvc(*)) 1 - 3 ml FLUSH 0600, 1800 DANIEL PRN Reason: Protocol Last Admin: 10/03/17 06:34 Dose: 1 ml Cefazolin Sodium 2 gm/ Sodium (Chloride) 100 mls @ 400 mls/hr IVPB Q8HR [facility] Last Admin: 10/03/17 13:56 Dose: 400 mls/hr Sodium Chloride (Ns 0.9% 1000 Ml*) 1,000 mls @ 25 mls/hr IV PER RATE [facility] Magnesium Sulfate (Magnesium Sulfate 2 Gm Iv*) 2 gm in 50 mls @ 50 mls/hr IVPB ONCE ONE Stop: 10/03/17 16:50 Melatonin (Melatonin (Nf)) 3 mg PO BEDTIME PRN; Protocol PRN Reason: Sleep Last Admin: 09/27/17 21:59 Dose: 3 mg Metoprolol Succinate (Toprol Xl Tab*) 100 mg PO DAILY [facility] Last Admin: 10/03/17 09:56 Dose: Not Given Naloxone HCl (Narcan*) 0.08 mg IV Q2M PRN PRN Reason: severe induced resp depression Stop: 10/04/17 12:17 Ondansetron HCl (Zofran Inj*) 4 mg IV Q6H PRN PRN Reason: NAUSEA Pantoprazole Sodium (Protonix Tab (Nf)) 40 mg PO DAILY [facility] Last Admin: 10/03/17 09:51 Dose: 40 mg Pharmacy Profile Note (Coumadin Daily Reminder*) 1 note FOLLOW UP 1700 [facility] Last Admin: 10/02/17 16:15 Dose: 1 note Tramadol HCl (Ultram*) 50 mg PO Q6H PRN PRN Reason: PAIN Last Admin: 10/02/17 03:57 Dose: 50 mg Warfarin Sodium (Coumadin Tab(*)) 2 mg PO DAILY@1700 [facility] PRN Reason: Protocol Vital Signs - 8 hr 10/03/17 10/03/17 10/03/17 08:00 12:50 13:00 Temperature 97.3 F Pulse Rate 58 53 Respiratory 16 20 14 Rate Blood Pressure 121/48 148/47 (mmHg) O2 Sat by Pulse 98 96 Oximetry 10/03/17 10/03/17 10/03/17 13:15 13:30 13:56 Temperature 98.0 F Pulse Rate 53 53 54 Respiratory 14 14 16 Rate Blood Pressure 131/54 131/54 134/45 (mmHg) O2 Sat by Pulse 96 96 100 Oximetry Oxygen Devices in Use Now: None Appearance: NAD, sitting in chair. Eyes: No Scleral Icterus, PERRLA Ears/Nose/Mouth/Throat: NL Teeth, Lips, Gums, Mucous Membranes Moist Respiratory: Symmetrical Chest Expansion and Respiratory Effort, - - b/l Rales at bases. no wheezing or rhonchi. Cardiovascular: NL Sounds; No Murmurs; No JVD, RRR Abdominal: NL Sounds; No Tenderness; No Distention, No Hepatosplenomegaly Extremities: - - edema 1-2+ right leg. trace-1+ left leg. much improved compared to 09/29 Skin: No Rash or Ulcers Neurological: Alert and Oriented x 3, NL Sensation, NL Muscle Strength and Tone Result Diagrams: 10/03/17 05:40 10/03/17 05:40 Additional Lab and Data: Laboratory Results - last 24 hr 10/02/17 10/03/17 10/03/17 05:49 05:40 05:40 WBC 12.3 H RBC 3.16 L Hgb 8.8 L Hct 26 L MCV 83 MCH 28 MCHC 33 RDW 20 H Plt Count 456 H MPV 7 L Neut % (Auto) 78.1 Lymph % (Auto) 11.8 L [place] % (Auto) 7.7 H Eos % (Auto) 1.8 Baso % (Auto) 0.6 Absolute Neuts (auto) 9.6 H Absolute Lymphs (auto) 1.4 Absolute Monos (auto) 0.9 H Absolute Eos (auto) 0.2 Absolute Basos (auto) 0.1 Absolute Nucleated RBC 0 Nucleated RBC % 0 INR (Anticoag Therapy) Sodium 130 L Potassium 3.8 Chloride 91 L Carbon Dioxide 32 Anion Gap 7 BUN 23 Creatinine 0.91 Est GFR ( Amer) 103.6 Est GFR (Non-Af Amer) 80.6 BUN/Creatinine Ratio 25.3 H Glucose 100 Hemoglobin A1c 6.6 H Calcium 9.2 Magnesium 1.8 L 10/03/17 05:40 WBC RBC Hgb Hct MCV MCH MCHC RDW Plt Count MPV Neut % (Auto) Lymph % (Auto) [place] % (Auto) Eos % (Auto) Baso % (Auto) Absolute Neuts (auto) Absolute Lymphs (auto) Absolute Monos (auto) Absolute Eos (auto) Absolute Basos (auto) Absolute Nucleated RBC Nucleated RBC % INR (Anticoag Therapy) 1.74 H Sodium Potassium Chloride Carbon Dioxide Anion Gap BUN Creatinine Est GFR ( Amer) Est GFR (Non-Af Amer) BUN/Creatinine Ratio Glucose Hemoglobin A1c Calcium Magnesium Microbiology and Other Data: Microbiology 09/29/17 14:30 Stool Stool Occult Blood (IBETH) - Final 09/24/17 10:52 Blood Venous Aerobic Blood Culture - Final No Growth Day 5 09/24/17 10:52 Blood Venous Anaerobic Blood Culture - Final No Growth Day 5 09/24/17 18:00 Leg Right Skin and Soft Tissue MRSA/MSSA (PCR - Final Mrsa Negative S.aureus Positive 09/24/17 18:00 Leg Right Gram Stain - Final 09/24/17 18:00 Leg Right Wound Culture - Final Staphylococcus Aureus Peptoniphilus Asaccharolyticus 09/22/17 17:57 Blood Venous Aerobic Blood Culture - Final Staphylococcus Epidermidis 09/22/17 17:57 Blood Venous Anaerobic Blood Culture - Final Staphylococcus Epidermidis 09/22/17 17:57 Blood Venous Blood MRSA/MSSA (PCR) - Final Mrsa Negative S.aureus Negative 09/22/17 18:09 Blood Venous Aerobic Blood Culture - Final Staphylococcus Epidermidis 09/22/17 18:09 Blood Venous Anaerobic Blood Culture - Final Staphylococcus Epidermidis 09/22/17 18:09 Blood Venous Blood MRSA/MSSA (PCR) - Final Mrsa Negative S.aureus Negative 09/22/17 17:27 Leg Left Skin and Soft Tissue MRSA/MSSA (PCR - Final Mrsa Negative S.aureus Positive 09/22/17 17:27 Leg Left Gram Stain - Final 09/22/17 17:27 Leg Left Wound Culture - Final Staphylococcus Aureus Peptoniphilus Asaccharolyticus 09/22/17 14:06 Nasal Influenza Types A,B Antigen (IBETH) - Final Specimen received for Influenza A/B Molecular testing Assess/Plan/Problems-Billing 77 yo M PMH CAD, afib (on coumadin and amio), AV bioprosthetic replacement, PAD s/p left femoral endarterectomy and iliac stent in 05/2017 who presented with chills and rigors that developed during imaging as outpatient. Strep Epidermidis Bacteremia treating with 6 weeks Ancef for IE given bioprosthetic valve. MSSA abscess RLE s/p ID. Concern for poor perfusion given ischemic/pfeiffer appearing muscle, pending CT abd aorta w/ runoff. - Patient Problems (1) Bacteremia Current Visit: Yes Status: Acute Code(s): R78.81 - BACTEREMIA SNOMED Code( s): 5337991 Comment: S epidermidus x 4 bottles from 10/20; then blood cultures negative . CARTER done did not show clear vegetation. 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 picc in place since 09/26 Continue cefazolin (2) Ulcer Current Visit: Yes Status: Acute Code(s): QIU1983 - SNOMED Code(s): 125760816 Comment: no abscess seen in OR. 10/03 Concern for poor perfusion. getting CT abd aorta w/ run off to define PAD anatomy. Dr. Rees discussed with Dr. Ignacio. Restart warfarin tomorrow. Continue cefazolin (3) Acute on chronic systolic (congestive) heart failure Current Visit: Yes Status: Acute Code(s): I50.23 - ACUTE ON CHRONIC SYSTOLIC (CONGESTIVE) HEART FAILURE SNOMED Code(s): 340092763 Comment: Still mildly volume overloaded, markedly improved today. Orthopnea improved, JVP improving. EF 45-50% on CARTER 09/25 change lasix to 40mg BID. strict io daily weights. would benefit from an JULES-inhibitor; will check cardiology records to see why he is not on one. will hold off for now given CT contrast planned. (4) A-fib Current Visit: Yes Status: Acute Code(s): I48.91 - UNSPECIFIED ATRIAL FIBRILLATION SNOMED Code(s): 52675785 Comment: Pt is in NSR. Continue amiodarone, metoprolol and coumadin(restart tomorrow). (5) CAD (coronary artery disease) Current Visit: Yes Status: Acute Code(s): I25.10 - ATHSCL HEART DISEASE OF [place] CORONARY ARTERY W/O ANG PCTRS SNOMED Code(s): 99440980 Comment: He had a STEMI on his admission to [facility] in June and has a stent in the LAD. Continue plavix, metoprolol, statin. (6) DVT prophylaxis Current Visit: Yes Status: Acute Code(s): KAJ7598 - SNOMED Code(s): 003055692 Comment: on Coumadin. (7) Anemia Current Visit: Yes Status: Acute Code(s): D64.9 - ANEMIA, UNSPECIFIED SNOMED Code(s): 984335951 Comment: Hgb 8.8. On coumadin. Also on plavix for left iliac Stent (May 2017) . Hx of LAD Stent. Normocytic but RDW elevated. iron 20 Iron sat 8%, ferritin 203. iron supplements indicated after acute infection. stool occult not in system but may have been positive? (8) H/O deep venous thrombosis Current Visit: Yes Status: Acute Code(s): Z86.718 - PERSONAL HISTORY OF OTHER VENOUS THROMBOSIS AND EMBOLISM SNOMED Code(s): 900983373 Comment: Pt on coumadin (9) Hyponatremia Current Visit: Yes Status: Acute Code(s): E87.1 - HYPO-OSMOLALITY AND HYPONATREMIA SNOMED Code(s): 26102901 Comment: Na stablely low, currently 130. Volume overloaded currently but improved Uosm 335. on diuretics. TSH was 3.1 wnl on 09/19 (10) PAD (peripheral artery disease) Current Visit: Yes Status: Acute Code(s): I73.9 - PERIPHERAL VASCULAR DISEASE, UNSPECIFIED SNOMED Code(s): 723696218 Comment: Evaluated by Dr. Santana; given the location of his ulcer, PAD is not likely to have contributed as the etiology. However concern for poor perfusion. Getting CT abd/aorto w/ runoff. Vascular Surgeon was Dr. Rees. s/p right common femoral endarterectomy w/ patch repair per Dr. Santana notes Continue plavix and statin. (11) Full code status Current Visit: Yes Status: Acute Code(s): Z78.9 - OTHER SPECIFIED HEALTH STATUS SNOMED Code(s): 039317652 Status and Disposition: inpatient
[2017-10-03] MEDS ORDERED: Iohexol 350* (CONTRAST) 500 ML MDV IV ONE (16:30)
[2017-10-03] MEDS ORDERED: Warfarin TAB(*) 2 MG PO SCH (17:00)
[2017-10-03] MEDS ORDERED: Warfarin TAB(*) 2.5 MG PO SCH (17:00)
[2017-10-03] MEDS: Atorvastatin* 40 MG TAB PO SCH (18:28)
[2017-10-04] MEDS: ceFAZolin 1 GM VIAL(*) 2 GM in NS 0.9% 100 ML* 100 ML IVPB SCH ×3 (05:55→21:50)
[2017-10-04 08:11] LABS: ABS Basophils 0.1 10^3/ul (0-0.2); ABS Eosinophils 0.1 10^3/ul (0-0.6); ABS Lymphocytes 1.2 10^3/ul (1.0-4.8); ABS Monocytes 0.9 10^3/ul (0-0.8); ABS Neutrophils 9.9 10^3/ul (1.5-7.7); ABS Nucleated RBC 0 10^3/ul; Hematocrit 26 % (42-52); Hemoglobin 8.9 g/dl (14.0-18.0); Lymphocyte % 9.7 % (25-47); Mean Corpuscular HGB Conc 34 g/dl (31-36); Mean Corpuscular Hemoglobin 28 pg (27-31); Mean Corpuscular Volume 83 fL (80-94); Mean Platelet Volume 7 um3 (7.4-10.4); Nucleated Red Blood Cells % 0; Platelet Count 488 10^3/ul (150-450); Red Blood Count 3.18 10^6/ul (4.0-5.4); Red Cell Distribution Width 19 % (10.5-15); White Blood Count 12.1 10^3/ul (3.5-10.8)
[2017-10-04 08:15] LABS: EGFR Non-African American 88.4 (>60)
--- NOTE | 2017-10-04 08:56 | RAD ---
HISTORY: Peripheral arterial disease, poor healing, muscle ischemia COMPARISONS: CT of the right lower extremity dated September 29, 2017, CTA of the abdominal aorta dated July 20, 2017, ankle-brachial indices dated September 22, 2017 TECHNIQUE: Multiple contiguous axial CT images were obtained of from the level of the lower level aorta inferiorly through the lower sternum is bilaterally both before and after the administration of intravenous contrast. Coronal and sagittal multiplanar reformations and maximum intensity projection reconstructions are also submitted. 3-D volumetric reconstructions are also submitted. FINDINGS: DISTAL AORTA: There is circumferential atherosclerosis of the distal abdominal aorta without aneurysmal dilatation. There is atherosclerosis involving the origin of the celiac trunk with moderate stenosis of the proximal celiac trunk. The superior mesenteric artery is patent. The inferior mesenteric artery is patent. RIGHT: AORTOILIAC: Common iliac artery: There is calcific atherosclerotic disease. The vessels patent without stenosis. External iliac artery: There is calcific atherosclerotic disease. There is focal moderate stenosis of the right common femoral artery measuring approximately 1.4 cm in length. Internal iliac artery: There is calcific atherosclerotic disease. There is short segment moderate stenosis of the proximal right internal iliac artery. The distal great vessels are calcified but patent. INFRAINGUINAL: Common femoral artery: There is extensive calcified atherosclerotic plaque with diffuse and multifocal moderate to severe stenosis extending into the superficial femoral artery. (Superficial) femoral artery: There is diffuse multifocal calcific atherosclerotic disease, resulting diffuse severe stenosis. There is no luminal enhancement of the proximal third of the right superficial femoral artery for approximately 5 cm. There is minimal distal reconstitution, with another occluded segment measuring 2 cm in length third of the superficial femoral artery Deep femoral artery: There is mild atherosclerosis of the profunda femoris which is patent along the majority of its course. Proximal popliteal artery: There is atherosclerosis of the proximal popliteal artery, with mild fusiform narrowing without focal stenosis. INFRAPOPLITEAL: Distal popliteal artery: Patent without stenosis Anterior tibial artery: There is multifocal narrowing or regularity with mild calcific plaque consistent with atherosclerosis. There is diffuse mild narrowing of the anterior tibial artery without focal or high-grade stenosis to the level of the midfoot. The vessels of the dorsal arch appear patent. Tibioperoneal trunk: There is calcific atherosclerotic disease, with moderate diffuse narrowing of the tibioperoneal trunk. Peroneal artery: There is multifocal high-grade stenosis of the peroneal artery that is worse distally, though the vessel does cross the ankle. Posterior tibial artery: There is diffuse and multifocal atherosclerotic disease of the posterior tibial artery, with calcific plaque proximally. This results in moderate diffuse narrowing, though the vessels cross the ankle. The plantar arch is patent. LEFT: AORTOILIAC: Common iliac artery: There is circumferential calcific atherosclerotic disease without stenosis. External iliac artery: There is calcific atherosclerotic disease without stenosis. Internal iliac artery: There is calcific atherosclerotic disease, without stenosis. The distal vessels are calcified but patent. INFRAINGUINAL: Common femoral artery: The left common femoral artery is occluded. There is reconstitution at the SFA DFA bifurcation. This is can be identified on the July 20, 2017 examination and is similar. (Superficial) femoral artery: There is extensive calcified plaque of the right superficial femoral artery. There is no appreciable contrast enhancement throughout the length of the right superficial femoral artery except for minimal scattered short segment areas of enhancement along the distal third which may reflect retrograde flow from collaterals vessel is essentially occluded for the majority of its length. The deep femoral artery: The profunda femoris is patent without appreciable stenosis. This appears to BE the source of collateral supply to the distal third of the superficial femoral artery. Proximal popliteal artery: There is extensive calcified plaque of the suprageniculate popliteal artery with diffuse moderate to severe stenosis. INFRAPOPLITEAL: Distal popliteal artery: There is extensive calcified plaque with moderate to severe diffuse stenosis of the infrageniculate popliteal artery. Anterior tibial artery: There is extensive calcified plaque, with diffuse multifocal moderate stenosis, though the vessel is patent and does cross the ankle.. There is nonopacification of the dorsal arch along the third, fourth, and fifth metatarsals. Tibioperoneal trunk: There is extensive calcified plaque with diffuse mild stenosis. Peroneal artery: There is mild calcified plaque with multifocal moderate stenosis. Posterior tibial artery: There is extensive calcified plaque of the posterior tibial artery with diffuse moderate to severe stenosis, though the vessel does cross the ankle. There is nonfilling of the lateral aspect of the plantar arch along the third, fourth, and fifth metatarsals. EXTRAVASCULAR FINDINGS: There is subcutaneous emphysema along the posterior aspect of the proximal calf on the right with fluid and edema along the subcutaneous fat and musculature, progressed from the most recent CT examination. There is a fluid collection that communicates with the lumen measuring 2 centers in depth. Also noted is diverticulosis of the colon. There is a fat-containing umbilical hernia. IMPRESSION: 1. EXTENSIVE CALCIFIC ATHEROSCLEROTIC DISEASE OF THE LOWER ABDOMINAL AORTA AND THE LOWER EXTREMITIES BILATERALLY. 2. THIS RESULTS IN MODERATE STENOSIS OF THE PROXIMAL CELIAC TRUNK. 3. ON THE LEFT, THE MAJORITY OF THE LENGTH OF THE SUPERFICIAL FEMORAL ARTERY IS OCCLUDED. THERE IS ALSO OCCLUSION OF THE LEFT COMMON FEMORAL ARTERY. THERE IS EXTENSIVE ATHEROSCLEROSIS OF THE POPLITEAL ARTERY AND ITS DISTAL BRANCHES, THOUGH THE POSTERIOR TIBIAL ARTERY AND ANTERIOR TIBIAL ARTERY CROSS THE ANKLE. THERE IS INCOMPLETE OPACIFICATION OF THE DORSAL AND PLANTAR ARCHES OF THE FOOT ALONG THE THIRD, FOURTH, AND FIFTH DIGITS. 4. ON THE RIGHT, THERE IS SHORT AND MEDIUM SEGMENT MULTIFOCAL OCCLUSION OF THE RIGHT SUPERFICIAL FEMORAL ARTERY, WITH DIFFUSE MODERATE TO SEVERE STENOSIS OF THE RIGHT SUPERFICIAL FEMORAL ARTERY. THERE IS RELATIVE SPARING OF THE POPLITEAL ARTERY AND THE RIGHT. THOUGH THERE IS ATHEROSCLEROSIS OF THE ANTERIOR TIBIAL ARTERY, AND POSTERIOR TIBIAL ARTERY, BOTH VESSELS CROSS THE ANKLE AND THE DORSAL AND PLANTAR ARCHES OF THE FOOT APPEAR INTACT. 5. AGAIN NOTED IS CELLULITIS WITH A WOUND OF THE RIGHT CALF, PROGRESSED FROM THE PREVIOUS EXAMINATION..
[2017-10-04] MEDS: CMCS: Pantoprazole TAB (NF) 40 MG TAB PO SCH (09:47)
[2017-10-04] MEDS: Acetaminophen TAB* 325 MG PO PRN ×2 (09:47→16:00)
[2017-10-04] MEDS: Amiodarone TAB* 200 MG PO SCH (09:47)
[2017-10-04] MEDS: Furosemide IV* 10 MG/ML 10 ML VIAL (100 MG) IV SCH ×3 (09:48→17:28)
[2017-10-04] MEDS: Clopidogrel TAB* 75 MG PO SCH (09:48)
[2017-10-04] MEDS: Metoprolol Succinate XL TAB* 100 MG PO SCH (09:48)
[2017-10-04] MEDS: Docusate CAP* 100 MG PO SCH (09:48)
--- NOTE | 2017-10-04 11:47 | BRIEFOPN ---
Brief Operative Note - Surgery Procedures: Procedures Pre-OP Diagnoses: RLE cellulitis and superficial absess, r/o deep abscess Post-op Diagnosis: RLE fan cavity, ischemic gastrocnemius Procedure: Exploration of RLE abscess Surgeon: Sandee Asst: none Anethesia: local MAC EBL: minimal IVF: crystalloid Specimen: none Drains: none, wound packed open
--- NOTE | 2017-10-04 12:39 | PN ---
Progress Note - Progress Note Date of Service: 10/04/17 SOAP: Subjective: Pt seen and examined. Pt feeling better today. POD1 exploration of RLE wound and opening of muscle compartments. Pt is overall feeling better. Objective: af vss RLE; dressing removed and significant bloody drainage controlled with packing and leg elevation- Muscle appeared somewhat perfused. decreased LE edema CT aortogram reviewed, but will need to be evaluated by vasc surg or interventional rad. Assessment: POD1 exploration of wound, No deep abscess but Mm. compartments opened and pt improving-- possible resolving compartment syndrome Plan: wound care abx d/w IR
[2017-10-04] MEDS: traMADol TAB* 50 MG PO PRN ×2 (14:59→22:00)
--- NOTE | 2017-10-04 16:57 | PN ---
Subjective Date of Service: 10/04/17 Interval History: CT abd aorto demonstrated left super fem art occlusion. right multifocal occulsion right superior femoral artery, diffuse mod-severe stenosis of same. with bandage change there was large amount of bleeding. Observed packing change with surgery. Pt without pain in leg otherwise (Except with packing change. Denies SOB. CRP improving. Family History: Unchanged from Admission Social History: Unchanged from Admission Past Medical History: Unchanged from Admission Objective Active Medications: Acetaminophen (Tylenol Tab*) 650 mg PO Q6H PRN PRN Reason: FEVER/PAIN Last Admin: 10/04/17 16:00 Dose: 650 mg Albuterol (Ventolin 2.5 Mg/3 Ml Neb.Juany*) 2.5 mg INH Q2H PRN PRN Reason: SOB/WHEEZING Amiodarone HCl (Cordarone Tab*) 200 mg PO DAILY [facility] Last Admin: 10/04/17 09:47 Dose: 200 mg Atorvastatin Calcium (Lipitor*) 40 mg PO QPM [facility] Last Admin: 10/03/17 18:28 Dose: 40 mg Benzonatate (Tessalon Cap*) 100 mg PO BID PRN PRN Reason: COUGH Last Admin: 09/30/17 22:31 Dose: 100 mg Clopidogrel Bisulfate (Plavix Tab*) 75 mg PO DAILY [facility] Last Admin: 10/04/17 09:48 Dose: 75 mg Docusate Sodium (Colace Cap*) 100 mg PO DAILY [facility] Last Admin: 10/04/17 09:48 Dose: 100 mg Furosemide (Lasix Iv*) 40 mg IV 0900,1700 [facility] Last Admin: 10/04/17 09:48 Dose: 40 mg Heparin Sodium (Porcine) (Heparin Flush Picc/Ml/Cvc(*)) 1 - 3 ml FLUSH 0600, 1800 [facility] PRN Reason: Protocol Last Admin: 10/04/17 06:13 Dose: Not Given Cefazolin Sodium 2 gm/ Sodium (Chloride) 100 mls @ 400 mls/hr IVPB Q8HR [facility] Last Admin: 10/04/17 14:37 Dose: 400 mls/hr Sodium Chloride (Ns 0.9% 1000 Ml*) 1,000 mls @ 25 mls/hr IV PER RATE [facility] Last Admin: 10/04/17 01:30 Dose: 25 mls/hr Melatonin (Melatonin (Nf)) 3 mg PO BEDTIME PRN; Protocol PRN Reason: Sleep Last Admin: 09/27/17 21:59 Dose: 3 mg Metoprolol Succinate (Toprol Xl Tab*) 100 mg PO DAILY [facility] Last Admin: 10/04/17 09:48 Dose: 100 mg Ondansetron HCl (Zofran Inj*) 4 mg IV Q6H PRN PRN Reason: NAUSEA Pantoprazole Sodium (Protonix Tab (Nf)) 40 mg PO DAILY [facility] Last Admin: 10/04/17 09:47 Dose: 40 mg Pharmacy Profile Note (Coumadin Daily Reminder*) 1 note FOLLOW UP 1700 [facility] Last Admin: 10/03/17 22:59 Dose: 1 note Tramadol HCl (Ultram*) 50 mg PO Q6H PRN PRN Reason: PAIN Last Admin: 10/04/17 14:59 Dose: 50 mg Warfarin Sodium (Coumadin Tab(*)) 2 mg PO DAILY@1700 [facility] PRN Reason: Protocol Vital Signs - 8 hr 10/04/17 10/04/17 10/04/17 12:14 14:59 15:54 Temperature 98.3 F 98.4 F Pulse Rate 55 56 Respiratory 16 18 20 Rate Blood Pressure 118/43 132/50 (mmHg) O2 Sat by Pulse 98 97 Oximetry 10/04/17 16:00 Temperature Pulse Rate Respiratory Rate Blood Pressure (mmHg) O2 Sat by Pulse 97 Oximetry Oxygen Devices in Use Now: None Appearance: NAD, sitting in chair. Eyes: No Scleral Icterus, PERRLA Ears/Nose/Mouth/Throat: NL Teeth, Lips, Gums, Mucous Membranes Moist Neck: NL Appearance and Movements; NL JVP Respiratory: - - rales at bilateral bases. Cardiovascular: NL Sounds; No Murmurs; No JVD, RRR Abdominal: NL Sounds; No Tenderness; No Distention, No Hepatosplenomegaly Extremities: - - 1-2+ edema right foot distally. trace left(improved), right calf with vertical incision getting packed. Neurological: Alert and Oriented x 3, NL Sensation, NL Muscle Strength and Tone Nutrition: Taking PO's Result Diagrams: 10/04/17 06:24 10/04/17 06:00 Additional Lab and Data: Laboratory Results - last 24 hr 10/04/17 10/04/17 06:00 06:24 WBC 12.1 H RBC 3.18 L Hgb 8.9 L Hct 26 L MCV 83 MCH 28 MCHC 34 RDW 19 H Plt Count 488 H MPV 7 L Neut % (Auto) 81.4 Lymph % (Auto) 9.7 L [place] % (Auto) 7.3 H Eos % (Auto) 1.0 Baso % (Auto) 0.6 Absolute Neuts (auto) 9.9 H Absolute Lymphs (auto) 1.2 Absolute Monos (auto) 0.9 H Absolute Eos (auto) 0.1 Absolute Basos (auto) 0.1 Absolute Nucleated RBC 0 Nucleated RBC % 0 Sodium 131 L Potassium 4.2 Chloride 94 L Carbon Dioxide 30 Anion Gap 7 BUN 22 Creatinine 0.84 Est GFR ( Amer) 113.7 Est GFR (Non-Af Amer) 88.4 BUN/Creatinine Ratio 26.2 H Glucose 106 H Calcium 9.1 Total Creatine Kinase 17 C-Reactive Protein 74.31 H Microbiology and Other Data: Microbiology 09/29/17 14:30 Stool Stool Occult Blood (IBETH) - Final 09/24/17 10:52 Blood Venous Aerobic Blood Culture - Final No Growth Day 5 09/24/17 10:52 Blood Venous Anaerobic Blood Culture - Final No Growth Day 5 09/24/17 18:00 Leg Right Skin and Soft Tissue MRSA/MSSA (PCR - Final Mrsa Negative S.aureus Positive 09/24/17 18:00 Leg Right Gram Stain - Final 09/24/17 18:00 Leg Right Wound Culture - Final Staphylococcus Aureus Peptoniphilus Asaccharolyticus 09/22/17 17:57 Blood Venous Aerobic Blood Culture - Final Staphylococcus Epidermidis 09/22/17 17:57 Blood Venous Anaerobic Blood Culture - Final Staphylococcus Epidermidis 09/22/17 17:57 Blood Venous Blood MRSA/MSSA (PCR) - Final Mrsa Negative S.aureus Negative 09/22/17 18:09 Blood Venous Aerobic Blood Culture - Final Staphylococcus Epidermidis 09/22/17 18:09 Blood Venous Anaerobic Blood Culture - Final Staphylococcus Epidermidis 09/22/17 18:09 Blood Venous Blood MRSA/MSSA (PCR) - Final Mrsa Negative S.aureus Negative 09/22/17 17:27 Leg Left Skin and Soft Tissue MRSA/MSSA (PCR - Final Mrsa Negative S.aureus Positive 09/22/17 17:27 Leg Left Gram Stain - Final 09/22/17 17:27 Leg Left Wound Culture - Final Staphylococcus Aureus Peptoniphilus Asaccharolyticus 09/22/17 14:06 Nasal Influenza Types A,B Antigen (IBETH) - Final Specimen received for Influenza A/B Molecular testing Assess/Plan/Problems-Billing 77 yo M PMH CAD, afib (on coumadin and amio), AV bioprosthetic replacement, PAD s/p left femoral endarterectomy and iliac stent in 05/2017 who presented with chills and rigors that developed during imaging as outpatient. Strep Epidermidis Bacteremia treating with 6 weeks Ancef for IE given bioprosthetic valve. MSSA abscess RLE s/p ID. Concern for poor perfusion possible 2/2 compartment syndrome given ischemic/pfeiffer appearing muscle. Better blood flow post op day 1 - Patient Problems (1) Ulcer Current Visit: Yes Status: Acute Code(s): [id number] - SNOMED Code(s): 364637980 Comment: no abscess seen in OR. 10/03 Concern for poor perfusion possibly 2/2 compartment syndrome. now with better bleeding to surgical site. CT abd aorta w/ run off to define PAD anatomy: with b/l disease, mostly superficial femoral artery on right. Restart warfarin today Continue cefazolin daily packing changes with surgery. discussed with ID yesterday: no anaerobic coverage for Peptoniphilus Asaccharolyticus wanted at this time. (2) Bacteremia Current Visit: Yes Status: Acute Code(s): R78.81 - BACTEREMIA SNOMED Code( s): 2442742 Comment: S epidermidus x 4 bottles from 10/20; then blood cultures negative . CARTER done did not show clear vegetation. 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 picc in place since 09/26 Continue cefazolin (3) Acute on chronic systolic (congestive) heart failure Current Visit: Yes Status: Acute Code(s): I50.23 - ACUTE ON CHRONIC SYSTOLIC (CONGESTIVE) HEART FAILURE SNOMED Code(s): 867802386 Comment: Still mildly volume overloaded, markedly improved today. Orthopnea improved, JVP improving. EF 45-50% on CARTER 09/25 continue lasix 40mg daily. strict io daily weights. would benefit from an JULES-inhibitor in coming days. (4) A-fib Current Visit: Yes Status: Acute Code(s): I48.91 - UNSPECIFIED ATRIAL FIBRILLATION SNOMED Code(s): 60068978 Comment: Pt is in NSR. Continue amiodarone, metoprolol and coumadin(restart today). (5) CAD (coronary artery disease) Current Visit: Yes Status: Acute Code(s): I25.10 - ATHSCL HEART DISEASE OF [place] CORONARY ARTERY W/O ANG PCTRS SNOMED Code(s): 36567959 Comment: He had a STEMI on his admission to [facility] in June and has a stent in the LAD. Continue plavix, metoprolol, statin. (6) DVT prophylaxis Current Visit: Yes Status: Acute Code(s): TRZ9202 - SNOMED Code(s): 834706209 Comment: on Coumadin. (7) Anemia Current Visit: Yes Status: Acute Code(s): D64.9 - ANEMIA, UNSPECIFIED SNOMED Code(s): 042647633 Comment: Hgb 8.9. On coumadin. Also on plavix for left iliac Stent (May 2017) . Hx of LAD Stent. Normocytic but RDW elevated. iron 20 Iron sat 8%, ferritin 203. iron supplements indicated after acute infection. stool occult was positive, no gross e/o of melena or hematochezia. (8) H/O deep venous thrombosis Current Visit: Yes Status: Acute Code(s): Z86.718 - PERSONAL HISTORY OF OTHER VENOUS THROMBOSIS AND EMBOLISM SNOMED Code(s): 984527401 Comment: Pt on coumadin (9) Hyponatremia Current Visit: Yes Status: Acute Code(s): E87.1 - HYPO-OSMOLALITY AND HYPONATREMIA SNOMED Code(s): 44289502 Comment: Na stablely low, currently 130. Volume overloaded currently but improved Uosm 335. on diuretics. TSH was 3.1 wnl on 09/19 (10) PAD (peripheral artery disease) Current Visit: Yes Status: Acute Code(s): I73.9 - PERIPHERAL VASCULAR DISEASE, UNSPECIFIED SNOMED Code(s): 106962596 Comment: Evaluated by Dr. Santana; given the location of his ulcer, PAD is not likely to have contributed as the etiology. However concern for poor perfusion. CT abd/aorto w/ runoff with moderate to severe stenosis of SFA on right. Vascular Surgeon was Dr. Amankanah. Continue plavix and statin. (11) Full code status Current Visit: Yes Status: Acute Code(s): Z78.9 - OTHER SPECIFIED HEALTH STATUS SNOMED Code(s): 752001872 Status and Disposition: inpatient
[2017-10-04] MEDS: Atorvastatin* 40 MG TAB PO SCH (17:23)
[2017-10-04] MEDS: Warfarin TAB(*) 2 MG PO SCH (17:23)
--- NOTE | 2017-10-05 03:28 | OP ---
CC: [facility]; Dr. Garland; Dr. Matthias Welch OPERATIVE REPORT: DATE OF OPERATION: 10/03/17 DATE OF : 38 SURGEON: Rhys Ignacio MD TUTORING MANAGER: None. ANESTHESIA: Local MAC anesthesia. PRE-OP DIAGNOSES: Right lower extremity cellulitis and superficial abscess, rule out deep abscess. POST-OP DIAGNOSES: Right lower extremity abscess cavity and ischemic-appearing gastrocnemius. OPERATIVE PROCEDURE: Exploration of right lower extremity wound. INDICATIONS: Mr. Castellon is a 77-year-old gentleman, who I have been seeing, who has been noted to kidd ve a superficial abscess that I drained at the bedside bluntly entering into a cavity. We had been c hanging the packing and cellulitis had improved. The patient's additional workup has included a CT s can of the lower extremity as well as an ultrasound leading to a cause for concern for deeper abscess . The patient's worsening pain and persistent high white blood cell count led the decision to offer exploration of this wound for the concern of a deep abscess. I outlined the details of the procedure going over the risks, benefits, and alternatives to him and his and he agreed to proceed with o perative intervention. ESTIMATED BLOOD LOSS: Minimal. IV FLUIDS: Crystalloid fluid given. SPECIMENS: None. Wound left open. DESCRIPTION OF PROCEDURE: Consent was signed. The patient was marked. He was brought to the operat ing room. Gentle sedation was given. He was already on antibiotics. We did not place any sequentia l devices. He was placed in a slight left-sided decubitus where we could fully evaluate the right la teral posterior calf, which was then prepped and draped with Betadine after removing the previously p laced packing. The patient's leg was then draped and the time-out was performed. I identified this previous incision site, which was approximately 2 x 2 cm. It did tunnel throughout to the extreme about 5 cm in the biggest direction and this was posteriorly. We started by injectin g lidocaine approximately 4 cm inferior and superior to this opening. We incised this with cautery a nd entered into the area above the fascia of the muscles. No fluid was evacuated. The muscle appear ed grayish in color. We incised the fascia overlying this and entered into the muscle fiber themselv es, which did not bleed. I probed this with Toshia clamp in various spaces. There was no bleeding or purulent drainage. There was some thin fluid that was suctioned off, but no evidence of abscess at all. Next, we Pulsavac'd the wound in its entirety. I then placed a Kerlix gauze into the space followed by wrap and a non-tight Claus wrap. The patient tolerated the procedure well and was transferred to the PACU in stable condition. [id number]/[facility] #: [id number]
[2017-10-05] MEDS: traMADol TAB* 50 MG PO PRN ×2 (04:12→22:21)
[2017-10-05] MEDS: ceFAZolin 1 GM VIAL(*) 2 GM in NS 0.9% 100 ML* 100 ML IVPB SCH ×3 (07:30→22:37)
[2017-10-05 07:47] LABS: INR 1.43 (0.77-1.02)
[2017-10-05] MEDS ORDERED: Furosemide IV* 10 MG/ML 10 ML VIAL (100 MG) IV SCH (09:00)
--- NOTE | 2017-10-05 10:53 | PN ---
Progress Note - Progress Note Date of Service: 10/05/17 SOAP: Subjective: Pt seen and examined. Pt feeling better today. POD2 exploration of RLE wound and opening of muscle compartments. Pt continues to feel better. We ambulated 20' with and at times without walker Objective: af vss RLE; dressing removed and repacked and leg elevation- Muscle shows improved perfusion decreased LE edema Assessment: POD2 exploration of wound, No deep abscess but Mm. compartments opened and pt improving-- possible resolving compartment syndrome Plan: wound care abx d/w IR
[2017-10-05] MEDS: Clopidogrel TAB* 75 MG PO SCH (11:07)
[2017-10-05] MEDS: Docusate CAP* 100 MG PO SCH (11:07)
[2017-10-05] MEDS: Metoprolol Succinate XL TAB* 100 MG PO SCH (11:08)
[2017-10-05] MEDS: Amiodarone TAB* 200 MG PO SCH (11:08)
[2017-10-05] MEDS: CMCS: Pantoprazole TAB (NF) 40 MG TAB PO SCH (11:11)
[2017-10-05 11:12] LABS: ABS Basophils 0.1 10^3/ul (0-0.2); ABS Eosinophils 0.2 10^3/ul (0-0.6); ABS Lymphocytes 1.2 10^3/ul (1.0-4.8); ABS Monocytes 0.8 10^3/ul (0-0.8); ABS Neutrophils 7.6 10^3/ul (1.5-7.7); ABS Nucleated RBC 0 10^3/ul; Eosinophil % 1.5 % (0-6); Hematocrit 26 % (42-52); Hemoglobin 8.5 g/dl (14.0-18.0); Lymphocyte % 12.5 % (25-47); Mean Corpuscular HGB Conc 33 g/dl (31-36); Mean Corpuscular Hemoglobin 28 pg (27-31); Mean Corpuscular Volume 84 fL (80-94); Mean Platelet Volume 7 um3 (7.4-10.4); Nucleated Red Blood Cells % 0; Platelet Count 436 10^3/ul (150-450); Red Blood Count 3.04 10^6/ul (4.0-5.4); Red Cell Distribution Width 20 % (10.5-15); White Blood Count 9.9 10^3/ul (3.5-10.8)
[2017-10-05 11:23] LABS: EGFR Non-African American 89.6 (>60)
[2017-10-05] MEDS: Furosemide IV* 10 MG/ML 10 ML VIAL (100 MG) IV SCH (16:42)
[2017-10-05] MEDS: Acetaminophen TAB* 325 MG PO PRN (17:12)
[2017-10-05] MEDS: Atorvastatin* 40 MG TAB PO SCH (17:13)
[2017-10-05] MEDS: Warfarin TAB(*) 2 MG PO SCH (17:13)
--- NOTE | 2017-10-05 18:50 | PN ---
Subjective Date of Service: 10/05/17 Interval History: Some sharp pain in afternoon 01/04. had packing change with Dr. Ignacio and reports improved perfusion. Dr. Ignacio walked in [place] with him. Denies SOB, chest pain, abdominal pain. Family History: Unchanged from Admission Social History: Unchanged from Admission Past Medical History: Unchanged from Admission Objective Active Medications: Acetaminophen (Tylenol Tab*) 650 mg PO Q6H PRN PRN Reason: FEVER/PAIN Last Admin: 10/05/17 17:12 Dose: 650 mg Albuterol (Ventolin 2.5 Mg/3 Ml Neb.Juany*) 2.5 mg INH Q2H PRN PRN Reason: SOB/WHEEZING Amiodarone HCl (Cordarone Tab*) 200 mg PO DAILY [facility] Last Admin: 10/05/17 11:08 Dose: 200 mg Atorvastatin Calcium (Lipitor*) 40 mg PO QPM [facility] Last Admin: 10/05/17 17:13 Dose: 40 mg Benzonatate (Tessalon Cap*) 100 mg PO BID PRN PRN Reason: COUGH Last Admin: 09/30/17 22:31 Dose: 100 mg Clopidogrel Bisulfate (Plavix Tab*) 75 mg PO DAILY [facility] Last Admin: 10/05/17 11:07 Dose: 75 mg Docusate Sodium (Colace Cap*) 100 mg PO DAILY [facility] Last Admin: 10/05/17 11:07 Dose: 100 mg Furosemide (Lasix Iv*) 40 mg IV 0900,1600 [facility] Last Admin: 10/05/17 16:42 Dose: 40 mg Heparin Sodium (Porcine) (Heparin Flush Picc/Ml/Cvc(*)) 1 - 3 ml FLUSH 0600, 1800 [facility] PRN Reason: Protocol Last Admin: 10/05/17 17:14 Dose: 1 ml Cefazolin Sodium 2 gm/ Sodium (Chloride) 100 mls @ 400 mls/hr IVPB Q8HR [facility] Last Admin: 10/05/17 14:38 Dose: 400 mls/hr Melatonin (Melatonin (Nf)) 3 mg PO BEDTIME PRN; Protocol PRN Reason: Sleep Last Admin: 09/27/17 21:59 Dose: 3 mg Metoprolol Succinate (Toprol Xl Tab*) 100 mg PO DAILY [facility] Last Admin: 10/05/17 11:08 Dose: 100 mg Ondansetron HCl (Zofran Inj*) 4 mg IV Q6H PRN PRN Reason: NAUSEA Pantoprazole Sodium (Protonix Tab (Nf)) 40 mg PO DAILY [facility] Last Admin: 10/05/17 11:11 Dose: 40 mg Pharmacy Profile Note (Coumadin Daily Reminder*) 1 note FOLLOW UP 1700 [facility] Last Admin: 10/05/17 17:14 Dose: 1 note Tramadol HCl (Ultram*) 50 mg PO Q6H PRN PRN Reason: PAIN Last Admin: 10/05/17 04:12 Dose: 50 mg Warfarin Sodium (Coumadin Tab(*)) 2 mg PO DAILY@1700 [facility] PRN Reason: Protocol Last Admin: 10/05/17 17:13 Dose: 2 mg Vital Signs - 8 hr 10/05/17 10/05/17 10/05/17 11:07 11:23 14:00 Temperature 97.3 F Pulse Rate 57 Respiratory 16 16 Rate Blood Pressure 124/46 (mmHg) O2 Sat by Pulse 98 98 Oximetry 10/05/17 10/05/17 16:00 16:32 Temperature 98.3 F Pulse Rate 68 Respiratory 18 Rate Blood Pressure 160/62 (mmHg) O2 Sat by Pulse 98 99 Oximetry Oxygen Devices in Use Now: None Appearance: NAD Eyes: No Scleral Icterus, PERRLA Ears/Nose/Mouth/Throat: NL Teeth, Lips, Gums, Mucous Membranes Moist Neck: NL Appearance and Movements; NL JVP, Trachea Midline Respiratory: Symmetrical Chest Expansion and Respiratory Effort, - - fine rales at bilateral bases. Extremities: - - 1-2+ edema right leg. wrapped in kerlix/jules wrap. reportedly a little bit of bleeding with dressing change. minimally tender. Neurological: Alert and Oriented x 3, NL Sensation, NL Muscle Strength and Tone Nutrition: Taking PO's Result Diagrams: 10/05/17 06:34 10/05/17 06:34 Additional Lab and Data: Laboratory Results - last 24 hr 10/05/17 10/05/17 10/05/17 06:34 06:34 06:34 WBC 9.9 RBC 3.04 L Hgb 8.5 L Hct 26 L MCV 84 MCH 28 MCHC 33 RDW 20 H Plt Count 436 MPV 7 L Neut % (Auto) 76.7 Lymph % (Auto) 12.5 L [place] % (Auto) 8.5 H Eos % (Auto) 1.5 Baso % (Auto) 0.8 Absolute Neuts (auto) 7.6 Absolute Lymphs (auto) 1.2 Absolute Monos (auto) 0.8 Absolute Eos (auto) 0.2 Absolute Basos (auto) 0.1 Absolute Nucleated RBC 0 Nucleated RBC % 0 INR (Anticoag Therapy) 1.43 H Sodium 130 L Potassium 4.2 Chloride 95 L Carbon Dioxide 30 Anion Gap 5 BUN 21 Creatinine 0.83 Est GFR ( Amer) 115.2 Est GFR (Non-Af Amer) 89.6 BUN/Creatinine Ratio 25.3 H Glucose 102 H Calcium 9.0 Microbiology and Other Data: Microbiology 09/29/17 14:30 Stool Stool Occult Blood (IBETH) - Final 09/24/17 10:52 Blood Venous Aerobic Blood Culture - Final No Growth Day 5 09/24/17 10:52 Blood Venous Anaerobic Blood Culture - Final No Growth Day 5 09/24/17 18:00 Leg Right Skin and Soft Tissue MRSA/MSSA (PCR - Final Mrsa Negative S.aureus Positive 09/24/17 18:00 Leg Right Gram Stain - Final 09/24/17 18:00 Leg Right Wound Culture - Final Staphylococcus Aureus Peptoniphilus Asaccharolyticus 09/22/17 17:57 Blood Venous Aerobic Blood Culture - Final Staphylococcus Epidermidis 09/22/17 17:57 Blood Venous Anaerobic Blood Culture - Final Staphylococcus Epidermidis 09/22/17 17:57 Blood Venous Blood MRSA/MSSA (PCR) - Final Mrsa Negative S.aureus Negative 09/22/17 18:09 Blood Venous Aerobic Blood Culture - Final Staphylococcus Epidermidis 09/22/17 18:09 Blood Venous Anaerobic Blood Culture - Final Staphylococcus Epidermidis 09/22/17 18:09 Blood Venous Blood MRSA/MSSA (PCR) - Final Mrsa Negative S.aureus Negative 09/22/17 17:27 Leg Left Skin and Soft Tissue MRSA/MSSA (PCR - Final Mrsa Negative S.aureus Positive 09/22/17 17:27 Leg Left Gram Stain - Final 09/22/17 17:27 Leg Left Wound Culture - Final Staphylococcus Aureus Peptoniphilus Asaccharolyticus 09/22/17 14:06 Nasal Influenza Types A,B Antigen (IBETH) - Final Specimen received for Influenza A/B Molecular testing Assess/Plan/Problems-Billing 77 yo M PMH CAD, afib (on coumadin and amio), AV bioprosthetic replacement, PAD s/p left femoral endarterectomy and iliac stent in 05/2017 who presented with chills and rigors that developed during imaging as outpatient. Strep Epidermidis Bacteremia treating with 6 weeks Ancef for IE given bioprosthetic valve. MSSA abscess RLE s/p ID. Concern for poor perfusion possible 2/2 compartment syndrome given ischemic/pfeiffer appearing muscle. Better blood flow post op day 1 - Patient Problems (1) Ulcer Current Visit: Yes Status: Acute Code(s): [id number] - SNOMED Code(s): 064072973 Comment: no abscess seen in OR. 10/03 Concern for poor perfusion possibly 2/2 compartment syndrome. now with better bleeding to surgical site. CT abd aorta w/ run off to define PAD anatomy: with b/l disease, mostly superficial femoral artery on right. continue warfarin today Continue cefazolin daily packing changes with surgery. discussed with ID 10/03 : no anaerobic coverage for Peptoniphilus Asaccharolyticus wanted at this time. (2) Bacteremia Current Visit: Yes Status: Acute Code(s): R78.81 - BACTEREMIA SNOMED Code( s): 5692460 Comment: S epidermidus x 4 bottles from 10/20; then blood cultures negative . CARTER done did not show clear vegetation. 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 picc in place since 09/26 Continue cefazolin (3) Acute on chronic systolic (congestive) heart failure Current Visit: Yes Status: Acute Code(s): I50.23 - ACUTE ON CHRONIC SYSTOLIC (CONGESTIVE) HEART FAILURE SNOMED Code(s): 421113114 Comment: Still mildly volume overloaded but mostly in right leg distal to the suspected compartment syndrome s/p I&D. EF 45-50% on CARTER 09/25 lasix 40mg BID (from daily) daily. strict io daily weights. would benefit from an JULES-inhibitor in coming days. (4) A-fib Current Visit: Yes Status: Acute Code(s): I48.91 - UNSPECIFIED ATRIAL FIBRILLATION SNOMED Code(s): 89687319 Comment: Pt is in NSR. Continue amiodarone, metoprolol and coumadin (5) CAD (coronary artery disease) Current Visit: Yes Status: Acute Code(s): I25.10 - ATHSCL HEART DISEASE OF [place] CORONARY ARTERY W/O ANG PCTRS SNOMED Code(s): 30581787 Comment: He had a STEMI on his admission to [facility] in June and has a stent in the LAD. Continue plavix, metoprolol, statin. (6) DVT prophylaxis Current Visit: Yes Status: Acute Code(s): GYC1068 - SNOMED Code(s): 180618372 Comment: on Coumadin. (7) Anemia Current Visit: Yes Status: Acute Code(s): D64.9 - ANEMIA, UNSPECIFIED SNOMED Code(s): 212415229 Comment: Hgb 8.5. On coumadin. Also on plavix for left iliac Stent (May 2017) . Hx of LAD Stent. Normocytic but RDW elevated. iron 20 Iron sat 8%, ferritin 203. iron supplements indicated after acute infection. stool occult was positive, no gross e/o of melena or hematochezia. (8) H/O deep venous thrombosis Current Visit: Yes Status: Acute Code(s): Z86.718 - PERSONAL HISTORY OF OTHER VENOUS THROMBOSIS AND EMBOLISM SNOMED Code(s): 014635643 Comment: Pt on coumadin (9) Hyponatremia Current Visit: Yes Status: Acute Code(s): E87.1 - HYPO-OSMOLALITY AND HYPONATREMIA SNOMED Code(s): 82119212 Comment: Na stablely low, currently 130. Volume overloaded currently but improved Uosm 335. on diuretics. TSH was 3.1 wnl on 09/19 (10) PAD (peripheral artery disease) Current Visit: Yes Status: Acute Code(s): I73.9 - PERIPHERAL VASCULAR DISEASE, UNSPECIFIED SNOMED Code(s): 678644416 Comment: Evaluated by Dr. Santana; given the location of his ulcer, PAD is not likely to have contributed as the etiology. However concern for poor perfusion. CT abd/aorto w/ runoff with moderate to severe stenosis of SFA on right. Vascular Surgeon was Dr. Rees. Continue plavix and statin. (11) Full code status Current Visit: Yes Status: Acute Code(s): Z78.9 - OTHER SPECIFIED HEALTH STATUS SNOMED Code(s): 731661338 Status and Disposition: inpatient
[2017-10-06] MEDS: ceFAZolin 1 GM VIAL(*) 2 GM in NS 0.9% 100 ML* 100 ML IVPB SCH ×3 (05:30→22:16)
[2017-10-06 05:38] LABS: ABS Basophils 0.1 10^3/ul (0-0.2); ABS Eosinophils 0.1 10^3/ul (0-0.6); ABS Lymphocytes 1.1 10^3/ul (1.0-4.8); ABS Monocytes 0.7 10^3/ul (0-0.8); ABS Neutrophils 7.1 10^3/ul (1.5-7.7); ABS Nucleated RBC 0 10^3/ul; Eosinophil % 1.4 % (0-6); Hematocrit 25 % (42-52); Hemoglobin 8.4 g/dl (14.0-18.0); Lymphocyte % 12.2 % (25-47); Mean Corpuscular HGB Conc 34 g/dl (31-36); Mean Corpuscular Hemoglobin 28 pg (27-31); Mean Corpuscular Volume 83 fL (80-94); Mean Platelet Volume 7 um3 (7.4-10.4); Nucleated Red Blood Cells % 0; Platelet Count 409 10^3/ul (150-450); Red Blood Count 3.03 10^6/ul (4.0-5.4); Red Cell Distribution Width 19 % (10.5-15); White Blood Count 9.1 10^3/ul (3.5-10.8)
[2017-10-06 05:43] LABS: INR 1.42 (0.77-1.02)
[2017-10-06 05:56] LABS: EGFR Non-African American 84.9 (>60)
[2017-10-06] MEDS: Amiodarone TAB* 200 MG PO SCH (09:34)
[2017-10-06] MEDS: Clopidogrel TAB* 75 MG PO SCH (09:34)
[2017-10-06] MEDS: Docusate CAP* 100 MG PO SCH (09:34)
[2017-10-06] MEDS: CMCS: Pantoprazole TAB (NF) 40 MG TAB PO SCH (09:34)
[2017-10-06] MEDS: Furosemide IV* 10 MG/ML 10 ML VIAL (100 MG) IV SCH (09:34)
[2017-10-06] MEDS: Metoprolol Succinate XL TAB* 100 MG PO SCH (09:34)
[2017-10-06] MEDS: Acetaminophen TAB* 325 MG PO PRN ×3 (09:36→22:11)
--- NOTE | 2017-10-06 10:00 | PN ---
Progress Note - Progress Note Date of Service: 10/06/17 SOAP: Subjective: CC: right leg wound HPI: 77 year old man with prosthetic AV and right leg wound with abscess; wound explored in OR, necrotic muscle. Right leg pain and swelling improved. No fever , rash or diarrhea. Objective: Vital Signs Temp 36.8 C 10/06/17 07:59 Pulse 67 10/06/17 08:13 Resp 16 10/06/17 08:13 BP 151/58 10/06/17 07:59 Pulse Ox 98 10/06/17 08:13 Intake & Output 10/05/17 10/06/17 10/06/17 18:59 06:59 18:59 Intake Total 560 500 240 Output Total 1150 Balance 560 -650 240 Weight 179 lb 1.6 oz Intake: IV Fluids 100 ABX - CEFAZOLIN 100 IVPB 100 ABX - CEFAZOLIN 100 Oral 460 400 240 Output: Urine 1150 Other: # Voids 1 Gen:awake,no distress HEENT:PERRL, MMM Heart:RRR no murmur Lungs:CTA BL Abd:+BS NTND soft Skin: no rash MSK: R calf wrapped; trace edema, minimally tender Laboratory Results - last 24 hr 10/05/17 10/05/17 10/06/17 06:34 06:34 05:23 WBC 9.9 RBC 3.04 L Hgb 8.5 L Hct 26 L MCV 84 MCH 28 MCHC 33 RDW 20 H Plt Count 436 MPV 7 L Neut % (Auto) 76.7 Lymph % (Auto) 12.5 L [place] % (Auto) 8.5 H Eos % (Auto) 1.5 Baso % (Auto) 0.8 Absolute Neuts (auto) 7.6 Absolute Lymphs (auto) 1.2 Absolute Monos (auto) 0.8 Absolute Eos (auto) 0.2 Absolute Basos (auto) 0.1 Absolute Nucleated RBC 0 Nucleated RBC % 0 INR (Anticoag Therapy) Sodium 130 L 129 L Potassium 4.2 4.0 Chloride 95 L 94 L Carbon Dioxide 30 30 Anion Gap 5 5 BUN 21 22 Creatinine 0.83 0.87 Est GFR ( Amer) 115.2 109.1 Est GFR (Non-Af Amer) 89.6 84.9 BUN/Creatinine Ratio 25.3 H 25.3 H Glucose 102 H 103 H Calcium 9.0 9.0 10/06/17 10/06/17 05:23 05:23 WBC 9.1 RBC 3.03 L Hgb 8.4 L Hct 25 L MCV 83 MCH 28 MCHC 34 RDW 19 H Plt Count 409 MPV 7 L Neut % (Auto) 77.8 Lymph % (Auto) 12.2 L [place] % (Auto) 7.5 H Eos % (Auto) 1.4 Baso % (Auto) 1.1 Absolute Neuts (auto) 7.1 Absolute Lymphs (auto) 1.1 Absolute Monos (auto) 0.7 Absolute Eos (auto) 0.1 Absolute Basos (auto) 0.1 Absolute Nucleated RBC 0 Nucleated RBC % 0 INR (Anticoag Therapy) 1.42 H Sodium Potassium Chloride Carbon Dioxide Anion Gap BUN Creatinine Est GFR ( Amer) Est GFR (Non-Af Amer) BUN/Creatinine Ratio Glucose Calcium Assessment: 1. MSSA abscess right leg, with muscle necrosis 2. Staph epi bacteremia 4/4 BC bottles; CARTER no vegetation however prosthetic valve so infective endocarditis 3. s/p AVR 4. PAD s/p L iliac stent Plan: 1. ancef 2 gm IV Q8hrs day , weekly cbc, cmp, crp, fu with me 2 weeks.
--- NOTE | 2017-10-06 15:26 | PN ---
Subjective Date of Service: 10/06/17 Interval History: some bradycardia to high 40s, low 50s, asymptomatic. Ambulated, 5/10 pain. denies SOB, chest pain. afebrile. Family History: Unchanged from Admission Social History: Unchanged from Admission Past Medical History: Unchanged from Admission Objective Active Medications: Acetaminophen (Tylenol Tab*) 650 mg PO Q6H PRN PRN Reason: FEVER/PAIN Last Admin: 10/06/17 09:36 Dose: 650 mg Albuterol (Ventolin 2.5 Mg/3 Ml Neb.Juany*) 2.5 mg INH Q2H PRN PRN Reason: SOB/WHEEZING Amiodarone HCl (Cordarone Tab*) 200 mg PO DAILY [facility] Last Admin: 10/06/17 09:34 Dose: 200 mg Atorvastatin Calcium (Lipitor*) 40 mg PO QPM [facility] Last Admin: 10/05/17 17:13 Dose: 40 mg Benzonatate (Tessalon Cap*) 100 mg PO BID PRN PRN Reason: COUGH Last Admin: 09/30/17 22:31 Dose: 100 mg Clopidogrel Bisulfate (Plavix Tab*) 75 mg PO DAILY [facility] Last Admin: 10/06/17 09:34 Dose: 75 mg Docusate Sodium (Colace Cap*) 100 mg PO DAILY [facility] Last Admin: 10/06/17 09:34 Dose: 100 mg Furosemide (Lasix Iv*) 40 mg IV 0900,1600 [facility] Last Admin: 10/06/17 09:34 Dose: 40 mg Heparin Sodium (Porcine) (Heparin Flush Picc/Ml/Cvc(*)) 1 - 3 ml FLUSH 0600, 1800 [facility] PRN Reason: Protocol Last Admin: 10/06/17 14:28 Dose: 1 ml Cefazolin Sodium 2 gm/ Sodium (Chloride) 100 mls @ 400 mls/hr IVPB Q8HR [facility] Last Admin: 10/06/17 14:07 Dose: 400 mls/hr Melatonin (Melatonin (Nf)) 3 mg PO BEDTIME PRN; Protocol PRN Reason: Sleep Last Admin: 09/27/17 21:59 Dose: 3 mg Metoprolol Succinate (Toprol Xl Tab*) 50 mg PO DAILY [facility] Ondansetron HCl (Zofran Inj*) 4 mg IV Q6H PRN PRN Reason: NAUSEA Pantoprazole Sodium (Protonix Tab (Nf)) 40 mg PO DAILY [facility] Last Admin: 10/06/17 09:34 Dose: 40 mg Pharmacy Profile Note (Coumadin Daily Reminder*) 1 note FOLLOW UP 1700 [facility] Last Admin: 10/05/17 17:14 Dose: 1 note Tramadol HCl (Ultram*) 50 mg PO Q6H PRN PRN Reason: PAIN Last Admin: 10/05/17 22:21 Dose: 50 mg Warfarin Sodium (Coumadin Tab(*)) 2 mg PO DAILY@1700 [facility] PRN Reason: Protocol Last Admin: 10/05/17 17:13 Dose: 2 mg Vital Signs - 8 hr 10/06/17 10/06/17 10/06/17 07:59 08:00 08:13 Temperature 98.2 F Pulse Rate 71 67 Respiratory 18 16 16 Rate Blood Pressure 151/58 (mmHg) O2 Sat by Pulse 99 97 98 Oximetry 10/06/17 11:39 Temperature Pulse Rate Respiratory Rate Blood Pressure 118/48 (mmHg) O2 Sat by Pulse Oximetry Oxygen Devices in Use Now: None Appearance: NAD Eyes: No Scleral Icterus, PERRLA Ears/Nose/Mouth/Throat: NL Teeth, Lips, Gums, Mucous Membranes Moist Respiratory: Symmetrical Chest Expansion and Respiratory Effort, - - less prominent rales in b/l bases. no rhnochi or wheezing. Cardiovascular: - - RRR 3/6 NIURKA apex. no r/g Abdominal: NL Sounds; No Tenderness; No Distention, No Hepatosplenomegaly Extremities: - - 1+ edema right leg, improved. no strike thru on Claus bandage right calf. Neurological: Alert and Oriented x 3, NL Sensation, NL Muscle Strength and Tone Nutrition: Taking PO's Result Diagrams: 10/06/17 05:23 10/06/17 05:23 Additional Lab and Data: Laboratory Results - last 24 hr 10/06/17 10/06/17 10/06/17 05:23 05:23 05:23 WBC 9.1 RBC 3.03 L Hgb 8.4 L Hct 25 L MCV 83 MCH 28 MCHC 34 RDW 19 H Plt Count 409 MPV 7 L Neut % (Auto) 77.8 Lymph % (Auto) 12.2 L [place] % (Auto) 7.5 H Eos % (Auto) 1.4 Baso % (Auto) 1.1 Absolute Neuts (auto) 7.1 Absolute Lymphs (auto) 1.1 Absolute Monos (auto) 0.7 Absolute Eos (auto) 0.1 Absolute Basos (auto) 0.1 Absolute Nucleated RBC 0 Nucleated RBC % 0 INR (Anticoag Therapy) 1.42 H Sodium 129 L Potassium 4.0 Chloride 94 L Carbon Dioxide 30 Anion Gap 5 BUN 22 Creatinine 0.87 Est GFR ( Amer) 109.1 Est GFR (Non-Af Amer) 84.9 BUN/Creatinine Ratio 25.3 H Glucose 103 H Calcium 9.0 Microbiology and Other Data: Microbiology 09/29/17 14:30 Stool Stool Occult Blood (IBETH) - Final 09/24/17 10:52 Blood Venous Aerobic Blood Culture - Final No Growth Day 5 09/24/17 10:52 Blood Venous Anaerobic Blood Culture - Final No Growth Day 5 09/24/17 18:00 Leg Right Skin and Soft Tissue MRSA/MSSA (PCR - Final Mrsa Negative S.aureus Positive 09/24/17 18:00 Leg Right Gram Stain - Final 09/24/17 18:00 Leg Right Wound Culture - Final Staphylococcus Aureus Peptoniphilus Asaccharolyticus 09/22/17 17:57 Blood Venous Aerobic Blood Culture - Final Staphylococcus Epidermidis 09/22/17 17:57 Blood Venous Anaerobic Blood Culture - Final Staphylococcus Epidermidis 09/22/17 17:57 Blood Venous Blood MRSA/MSSA (PCR) - Final Mrsa Negative S.aureus Negative 09/22/17 18:09 Blood Venous Aerobic Blood Culture - Final Staphylococcus Epidermidis 09/22/17 18:09 Blood Venous Anaerobic Blood Culture - Final Staphylococcus Epidermidis 09/22/17 18:09 Blood Venous Blood MRSA/MSSA (PCR) - Final Mrsa Negative S.aureus Negative 09/22/17 17:27 Leg Left Skin and Soft Tissue MRSA/MSSA (PCR - Final Mrsa Negative S.aureus Positive 09/22/17 17:27 Leg Left Gram Stain - Final 09/22/17 17:27 Leg Left Wound Culture - Final Staphylococcus Aureus Peptoniphilus Asaccharolyticus 09/22/17 14:06 Nasal Influenza Types A,B Antigen (IBETH) - Final Specimen received for Influenza A/B Molecular testing Assess/Plan/Problems-Billing 77 yo M PMH CAD, afib (on coumadin and amio), AV bioprosthetic replacement, PAD s/p left femoral endarterectomy and iliac stent in 05/2017 who presented with chills and rigors that developed during imaging as outpatient. Strep Epidermidis Bacteremia treating with 6 weeks Ancef for IE given bioprosthetic valve. MSSA abscess RLE s/p ID. Concern for poor perfusion possible 2/2 compartment syndrome given ischemic/pfeiffer appearing muscle. Improving during dressing changes. - Patient Problems (1) Ulcer Current Visit: Yes Status: Acute Code(s): KSK8911 - SNOMED Code(s): 394244923 Comment: no abscess seen in OR. 10/03 Concern for poor perfusion possibly 2/2 compartment syndrome. now with better bleeding to surgical site. CT abd aorta w/ run off to define PAD anatomy: with b/l disease, mostly superficial femoral artery on right. continue warfarin today Continue cefazolin, day . f/u ID in 2 weeks. weekly CBC, CMP, CRP daily packing changes with surgery. Await surgical clearance for discharge. (2) Bacteremia Current Visit: Yes Status: Acute Code(s): R78.81 - BACTEREMIA SNOMED Code( s): 3800063 Comment: S epidermidus x 4 bottles from 10/20; then blood cultures negative . CARTER done did not show clear vegetation. 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 picc in place since 09/26 Continue cefazolin (3) Acute on chronic systolic (congestive) heart failure Current Visit: Yes Status: Acute Code(s): I50.23 - ACUTE ON CHRONIC SYSTOLIC (CONGESTIVE) HEART FAILURE SNOMED Code(s): 415724665 Comment: Still mildly volume overloaded but mostly in right leg distal to the suspected compartment syndrome s/p I&D. EF 45-50% on CARTER 09/25 lasix to 40mg po BID strict io daily weights. add lisinopril 2.5mg tomorrow. (4) A-fib Current Visit: Yes Status: Acute Code(s): I48.91 - UNSPECIFIED ATRIAL FIBRILLATION SNOMED Code(s): 22599292 Comment: Pt is in NSR. Continue amiodarone, metoprolol(cut to 50mg daily) and coumadin (5) CAD (coronary artery disease) Current Visit: Yes Status: Acute Code(s): I25.10 - ATHSCL HEART DISEASE OF [place] CORONARY ARTERY W/O ANG PCTRS SNOMED Code(s): 61657260 Comment: He had a STEMI on his admission to [facility] in June and has a stent in the LAD. Continue plavix, metoprolol(cut to 50mg daily), statin. (6) DVT prophylaxis Current Visit: Yes Status: Acute Code(s): OPD0548 - SNOMED Code(s): 259013614 Comment: on Coumadin. (7) Anemia Current Visit: Yes Status: Acute Code(s): D64.9 - ANEMIA, UNSPECIFIED SNOMED Code(s): 452661714 Comment: Hgb 8.4. On coumadin. Also on plavix for left iliac Stent (May 2017) . Hx of LAD Stent. Normocytic but RDW elevated. iron 20 Iron sat 8%, ferritin 203. iron supplements indicated after acute infection. stool occult was positive, no gross e/o of melena or hematochezia. (8) H/O deep venous thrombosis Current Visit: Yes Status: Acute Code(s): Z86.718 - PERSONAL HISTORY OF OTHER VENOUS THROMBOSIS AND EMBOLISM SNOMED Code(s): 875368732 Comment: Pt on coumadin (9) Hyponatremia Current Visit: Yes Status: Acute Code(s): E87.1 - HYPO-OSMOLALITY AND HYPONATREMIA SNOMED Code(s): 94873642 Comment: Na stablely low, currently 129. Volume overloaded currently but improved Uosm 335. on diuretics. TSH was 3.1 wnl on 09/19 (10) PAD (peripheral artery disease) Current Visit: Yes Status: Acute Code(s): I73.9 - PERIPHERAL VASCULAR DISEASE, UNSPECIFIED SNOMED Code(s): 890879357 Comment: Evaluated by Dr. Santana; given the location of his ulcer, PAD is not likely to have contributed as the etiology. However concern for poor perfusion. CT abd/aorto w/ runoff with moderate to severe stenosis of SFA on right. Vascular Surgeon was Dr. Rees. Continue plavix and statin. (11) Full code status Current Visit: Yes Status: Acute Code(s): Z78.9 - OTHER SPECIFIED HEALTH STATUS SNOMED Code(s): 423901335 Status and Disposition: inpatient. Waiting on surgical clearance/plan for necrotic muscle.
[2017-10-06] MEDS: Warfarin TAB(*) 2 MG PO SCH (17:04)
[2017-10-06] MEDS: Furosemide TAB* 40 MG PO SCH (17:05)
[2017-10-06] MEDS: Atorvastatin* 40 MG TAB PO SCH (17:05)
--- NOTE | 2017-10-06 17:20 | PN ---
Progress Note - Progress Note Date of Service: 10/06/17 Note: Surgery Progress: S: Less pain; ambulating more. O: Vital Signs - 8 hr 10/06/17 10/06/17 10/06/17 11:36 11:39 15:53 Temperature 97.5 F Pulse Rate 50 Respiratory 18 Rate Blood Pressure 103/39 118/48 (mmHg) O2 Sat by Pulse 99 99 Oximetry 10/06/17 15:56 Temperature 97.3 F Pulse Rate 51 Respiratory 20 Rate Blood Pressure 108/44 (mmHg) O2 Sat by Pulse 99 Oximetry RLE: less edema; no sig erythema; wound measures 6 x 2.5 cm, is clean and pink; there is some fibrinous debris (and/or strands of fascia) in the wound base. There is tracking anteriorly, posteriorly and postero-inferiorly, each w/ depth of up to 2 cm. No undrained collection; no purulence. No sig tenderness. Repacked w/ saline moistened 4x4, dry gauze covering dsg, Kerlix, and JULES. Pt vladimir''d well. A: RLE wound, s/p I&D, and add'l exploration and debridement (10/03), cont to improve P: cont local wound care (will d/w Dr. Ignacio 10/07 for long range plan); IV abx per Dr. Le.
[2017-10-06] MEDS: traMADol TAB* 50 MG PO PRN (18:36)
[2017-10-07] MEDS: traMADol TAB* 50 MG PO PRN (00:21)
[2017-10-07] MEDS: Acetaminophen TAB* 325 MG PO PRN (05:25)
[2017-10-07] MEDS: ceFAZolin 1 GM VIAL(*) 2 GM in NS 0.9% 100 ML* 100 ML IVPB SCH (05:30)
[2017-10-07 06:46] LABS: INR 1.46 (0.77-1.02)
[2017-10-07 06:48] LABS: ABS Basophils 0.1 10^3/ul (0-0.2); ABS Eosinophils 0.1 10^3/ul (0-0.6); ABS Lymphocytes 1.1 10^3/ul (1.0-4.8); ABS Monocytes 0.6 10^3/ul (0-0.8); ABS Nucleated RBC 0 10^3/ul; Eosinophil % 1.3 % (0-6); Hematocrit 25 % (42-52); Hemoglobin 8.4 g/dl (14.0-18.0); Lymphocyte % 13.7 % (25-47); Mean Corpuscular HGB Conc 34 g/dl (31-36); Mean Corpuscular Hemoglobin 28 pg (27-31); Mean Corpuscular Volume 83 fL (80-94); Mean Platelet Volume 6 um3 (7.4-10.4); Nucleated Red Blood Cells % 0; Platelet Count 399 10^3/ul (150-450); Red Cell Distribution Width 20 % (10.5-15); White Blood Count 7.9 10^3/ul (3.5-10.8)
[2017-10-07 07:00] LABS: EGFR Non-African American 76.7 (>60)
[2017-10-07] MEDS ORDERED: Metoprolol Succinate XL TAB* 50 MG PO SCH (09:00)
[2017-10-07] MEDS ORDERED: Lisinopril TAB* 5 MG PO SCH (09:00)
[2017-10-07] MEDS: Amiodarone TAB* 200 MG PO SCH (09:03)
[2017-10-07] MEDS: Furosemide TAB* 40 MG PO SCH (09:03)
[2017-10-07] MEDS: CMCS: Pantoprazole TAB (NF) 40 MG TAB PO SCH (09:03)
[2017-10-07] MEDS: Docusate CAP* 100 MG PO SCH (09:03)
[2017-10-07] MEDS: Clopidogrel TAB* 75 MG PO SCH (09:03)
--- NOTE | 2017-10-07 09:10 | PN ---
Progress Note - Progress Note Date of Service: 10/07/17 SOAP: Subjective: Pt seen and examined. Pt had difficult night with RLE pain, and now feeling better. apprec ID note Objective: af vss RLE; dressing removed and redressed. No packing at this point. Muscle continues to show improved perfusion. LE edema has returned CT ao d/w IR- no intervention on their part but recommend continued f/u with pt' s vasc surg Assessment: POD4 exploration of wound, No deep abscess but Mm. compartments opened and pt improving-- possible resolving compartment syndrome Plan: wound care daily: 4x4s paper tape, medigrip stocking elevate legs abx fu at wound center f/u with vasc surg
[2017-10-07 13:21] VITALS: BP 112/42
[2017-10-07] MEDS ORDERED: ceFAZolin 2 GM/20 ML SYRINGE IVPB Q8H IVPB SCH ×2 (22:00)
--- NOTE | 2017-10-08 06:26 | DS ---
DISCHARGE SUMMARY: DATE OF ADMISSION: 09/22/17 DATE OF DISCHARGE: 10/07/17 ADMITTING PROVIDER: Meño Severino MD PRIMARY CARE PHYSICIAN: Matthias Welch MD PRIMARY OUTPATIENT PRODUCT MERCHANDISER: Dr. Willingham. PRIMARY OUTPATIENT VASCULAR SURGEON: Dr. Gautam Garland. CONSULTING SURGEON: Dr. Ignacio. ATTENDING PHYSICIAN ON DISCHARGE: Dr. Kaveh Zacarias. CHIEF COMPLAINT: Increasing swelling, erythema, and drainage of right lateral mid calf ulcer; fatigue; shortness of breath. 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 HISTORY OF PRESENT ILLNESS AND HOSPITAL COURSE: Suhail Castellon is a 77-year-old male with past medical history of CHF; aortic valve replacement (2008); severe peripheral vascular disease, status post left femoral endarterectomy with left common iliac stent and angioplasty on 06/26/17 at [facility], complicated by STEMI with 80% occlusion of the distal left main and proximal LAD , status post drug-eluting stent; hypertension; hyperlipidemia; AFib, on amiodarone and Coumadin; right gastrocnemius DVT; also has history of bladder cancer, who developed progressive swelling, erythema, and drainage of his right lateral mid calf. He was found to have MSSA in the abscess of his lateral calf that was explored twice with General Surgery. He had blood cultures positive for Staph epidermidis 4/4 vials drawn on 09/22/17, which cleared by 09/24/17. He had an echocardiogram, which did not show any eleni vegetations, but given his prosthetic aortic valve, is being treated for infective endocarditis with 6 weeks of cefazolin. He had multiple imaging studies on the right calf, which were concerning for possible redevelopment of an abscess. He was taken to surgery with Dr. Ignacio on 10/03/17, which did not show any evidence of redeveloping abscess, but was concerning for ischemic and pfeiffer-looking muscle and there was some concern that he had developed a mild compartment syndrome. His wound was packed daily with Surgery and he had better blood flow on postoperative day number #1. Of note, he had very little blood flow in the actual surgery. His pain is being controlled by oral tramadol and Tylenol as needed. He had a CT aortogram with run-off, which showed significant disease bilaterally still. There was moderate stenosis of the proximal celiac trunk, majority of the length of the superficial femoral artery on the left was occluded, extensive atherosclerosis of the popliteal artery in its distal branches to the posterior tibial artery and anterior tibial artery across the ankle. There was incomplete opacification of the dorsal and plantar arches of the foot along the third, fourth, and fifth digits. On the right, there was short and medium segment multifocal occlusion of the right superficial femoral artery with diffuse [id number] stenosis of the right superficial femoral artery. There was relative sparing of the popliteal artery. There was atherosclerosis of the anterior tibial artery and posterior tibial artery with both vessels crossing the ankle and dorsal plantar arches of the foot appearing intact. Of note, the original evaluation by Surgery was on 09/24/[address] Ignacio at the bedside entered the ulceration, which at that time was 3 x 1 x 0.5 cm, with a swab, and a pocket of pus was entered, drained, and cultures taken and then irrigated. Cavity appeared at that time being 4 x 3 cm; it was packed. The patient did have an echocardiogram on 09/24/17, which showed ejection fraction of 45% to 50%. There was moderate aortic stenosis, aortic valve was 0.8 sq. Cm , evidence of severe pulmonary hypertension 61 mmHg, moderate tricuspid regurgitation. There is no evidence of vegetation. There was also a transesophageal echocardiogram performed on 09/26/17. Again, the EF was 45% to 50%. No intracardiac vegetations were seen. Dr. Gm Le of Infectious Disease was consulted and recommended a 6-week course of cefazolin for prosthetic aortic valve endocarditis and followup with Dr. Le in 2 weeks. Given the severity of the peripheral arterial disease, which may complicate wound healing in the setting of this now opened abscess, the patient was recommended to follow up with Dr. Gautam Garland as soon as can be arranged. He has followup scheduled already on 11/07/17 at 11:30 a.m., and office was trying to arrange for prior followup on 10/17/17 if can be arranged with Dr. Garland' s schedule, which is currently booked. The patient will follow up with LINSEY Vora, with [facility] General Surgery on 10/10/17 along with weekly care with the wound clinic. [facility] along with Sara is arranging to follow up with his cefazolin infusions and daily wound care needs. He does not have any internal packing currently. He was being arranged to have a MediGuard sleeve outside of his gauze dressing. The patient was found to be volume overloaded during admission and his diuretics were increased, required IV. His weight on admission was 84 kg, on discharge 81.1. His Lasix was increased to 40 mg p.o. b.i.d. He is intermittently bradycardic. His metoprolol doses were decreased to 50 mg daily from 100 mg daily, lisinopril 2.5 mg daily was added given his systolic heart failure. He had previously been on this and stopped during June hospitalization. The patient had leukocytosis during the middle of the hospital stay up to 40.7, resolved to 7.9 on the day of discharge. His BNP was 1423 on 09/29/17. His CRP improved from 244 on admission to 74 on 10/04/17. His INR needs to be checked in the outpatient setting; on the day of discharge was 1.46. His Coumadin had been held between 09/28/17 and 10/03/17 given surgical operations and elevated INRs. He got 2 mg on 10/04/17, 10/05/17, 10/06/17, thus resuming his home schedule. DISCHARGE MEDICATIONS: Include: 1. Atorvastatin 40 mg p.o. daily. 2. Clopidogrel 75 mg p.o. daily. 3. Docusate 100 mg p.o. daily. 4. Protonix 40 mg p.o. daily. 5. Tylenol 650 mg p.o. q.6 hours p.r.n. pain 6. Cholecalciferol 1000 units p.o. daily. 7. Lasix 40 mg p.o. b.i.d. 8. Lisinopril 2.5 mg p.o. daily (new). 9. Metoprolol succinate XL 50 mg p.o. daily (reduction of dose). 10. Tramadol 50 mg p.o. q.6 hours p.r.n. (new). 11. Warfarin 2 mg p.o. Friday, Friday, Friday, Friday, Friday and 4 mg Friday and . DISCHARGE DIET: Heart healthy, fluid restriction of 1.5 L recommended which is new. ACTIVITY: No restrictions. FOLLOWUP: Please follow up with Dr. Gm Le, Infections Disease, within 1 to 2 weeks, and Dr. [place] Garland on 11/07/17 at 11:30 a.m. Of note, the patient will also be called to see if he can be scheduled sooner on though that was not guaranteed as Dr. Garland's schedule is booked that day. LINSEY Vora, of General Surgery, [facility] on 10/10/17 at 11:30 a.m., Dr. Matthias Welch within 3 to 5 days of discharge. He will need an INR check at that time. Saar is setting up his cefazolin infusions and [facility] also with his wound care daily changes. The was also instructed how to give the cefazolin infusions. He needs CMP, CRP, and CBC weekly to be sent to Dr. Gm Le. TIME SPENT ON DISCHARGE: 55 minutes. [id number]/[facility] #: [id number] MTDD
== END 2017-10-07 14:25 | disposition home health service (06) | DRG 579 ==
LOC: ED 14:45 → MEDTELE 20:56
PROVIDERS: ADMIT Hospitalist; ATTEND Internal Medicine
PROC: B24BZZ4 Ultrasonography of Heart with Aorta, Transesophageal (ICD-10-PCS; 2017-09-26)
PROC: 02HV33Z Insertion of Infusion Device into Superior Vena Cava, Percutaneous Approach (ICD-10-PCS; 2017-09-26)
PROC: 0K9S0ZZ Drainage of Right Lower Leg Muscle, Open Approach (ICD-10-PCS; principal; 2017-10-03 11:00)
DX: L97.219 Non-pressure chronic ulcer of right calf with unspecified severity (principal); I50.23 Acute on chronic systolic (congestive) heart failure; I33.0 Acute and subacute infective endocarditis; R78.81 Bacteremia; L02.415 Cutaneous abscess of right lower limb; T79.A21A Traumatic compartment syndrome of right lower extremity, initial encounter; E87.1 Hypo-osmolality and hyponatremia; L03.115 Cellulitis of right lower limb; T82.6XXA Infection and inflammatory reaction due to cardiac valve prosthesis, initial encounter; I50.22 Chronic systolic (congestive) heart failure; I27.20 Pulmonary hypertension, unspecified; I08.2 Rheumatic disorders of both aortic and tricuspid valves; I48.0 Paroxysmal atrial fibrillation; D64.9 Anemia, unspecified; I11.0 Hypertensive heart disease with heart failure; Y82.8 Other medical devices associated with adverse incidents; B95.61 Methicillin susceptible Staphylococcus aureus infection as the cause of diseases classified elsewhere; E66.3 Overweight; K21.9 Gastro-esophageal reflux disease without esophagitis; I73.9 Peripheral vascular disease, unspecified; M19.90 Unspecified osteoarthritis, unspecified site; I25.10 Atherosclerotic heart disease of native coronary artery without angina pectoris; Y71.2 Prosthetic and other implants, materials and accessory cardiovascular devices associated with adverse incidents; E78.5 Hyperlipidemia, unspecified; B95.7 Other staphylococcus as the cause of diseases classified elsewhere; R00.1 Bradycardia, unspecified; X58.XXXA Exposure to other specified factors, initial encounter; Z86.718 Personal history of other venous thrombosis and embolism; Z91.030 Bee allergy status; I25.2 Old myocardial infarction; Z87.891 Personal history of nicotine dependence; Z95.2 Presence of prosthetic heart valve; Y92.009 Unspecified place in unspecified non-institutional (private) residence as the place of occurrence of the external cause; Z82.49 Family history of ischemic heart disease and other diseases of the circulatory system; Z85.51 Personal history of malignant neoplasm of bladder; Z95.5 Presence of coronary angioplasty implant and graft; Z97.0 Presence of artificial eye; Z68.28 Body mass index [BMI] 28.0-28.9, adult; Z79.02 Long term (current) use of antithrombotics/antiplatelets; Z79.01 Long term (current) use of anticoagulants
CPT/HCPCS: 36415; 71046; 75635; 80048; 80053; 80076; 81003; 81015; 82270; 82550; 82565; 82728; 83036; 83540; 83550; 83605; 83735; 83880; 83935; 84443; 84484; 84520; 85025; 85027; 85610; 85730; 86140; 86850; 86900; 86901; 87040; 87070; 87076; 87077; 87150; 87186; 87205; 87502; 87640; 87641; 93005; 93306; 93312; 93325; 93922; 94760; 99156; 99157; 99284; A9270-GY; C1751; J0456; J0690; J0692; J1940; J2001; J2250; J2310; J2916; J3010; J3475; Q9967

== ENCOUNTER 2018-12-10 16:19 | Inpatient (IN) | payer MEDICARE, OTHER ==
--- OUTSIDE RECORDS SUMMARY | 2018-12-10 16:38 | XMS REPORT | Continuity of Care Document ---
:1940 External Reference #:[id number] Author Name Anthony Mack Care Team Providers Name Role Phone Matthias Welch III, MD Primary Care Physician Unavailable Payers Date Identification Numbers Payment Provider Subscriber Effective: 2005 Policy Number: [id number] Medicare Jose Juan Choe PayID: [id number] [address] [place] [address] Effective: 2005 Policy Number: [id number] [facility] Jose Juan Choe Group Number: [id number] [address] PayID: [id number] [place] [address] Expires: 2017 Policy Number: [id number] [facility] Jose Juan Choe PayID: [id number] [place] [address] Problems Active Problems Provider Date Aortic valve disorder Brandon Willingham M.D. Onset: 05/24/2011 Benign essential hypertension Brandon Willingham M.D. Onset: 05/24/2011 Coronary arteriosclerosis Brandon Willingham M.D. Onset: 05/24/2011 Transplantation of heart valve Brandon Willingham M.D. Onset: 05/24/2011 Pure hypercholesterolemia Brandon Willingham M.D. Onset: 05/24/2011 Impaired fasting glycaemia Matthias Welch M.D. Onset: 12/16/2011 Peripheral vascular disease Brandon Willingham M.D. Onset: 01/10/2014 Malignant essential hypertension Brandon Willingham M.D. Onset: 2013 Mixed hyperlipidemia Brandon Willingham M.D. Onset: 04/14/2014 Essential hypertension Brandon Willingham M.D. Onset: 12/22/2015 Disorder of muscle Carlos Villalobos M.D. 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 Tobacco Use Start: Unknown End: Former Cigarette smoked for 25 Unknown Smoker 1 1/2 Packs years-quit 1982 Daily ETOH Use Rarely consumes beer Tobacco Use Start: Unknown End: Patient is a former Unknown smoker Recreational Drug Use Denies Drug Use Smoking Status Reviewed: 12/10/18 Patient is a former smoker Exercise Type/Frequency Exercises regularly Allergies, Adverse Reactions, Alerts Active Allergies Reaction Severity Comments Date NKDA 12/31/2007 Bee Sting 12/25/2010 Medications Active Medications SIG Qnty Indications Ordering Date Provider Xarelto 1 by mouth every 90tabs Nellie Nelson, 12/04/2017 20mg Tablets day (started N.P. 12/19) Metoprolol Succinate 1 by mouth every 90tabs Qutaybeh S. 11/04/2017 ER day Mateo Willingham 50mg Tablets ER 24HR Lasix 1/2 tab by mouth 180tabs Nellie Nelson, 10/27/2017 40mg Tablets daily N.P. Epipen use one time as 3unkamryn Alvares 02/19/2010 0.3mg/0.3ML Device directed Mateo Welch Amiodarone HCL 1 by mouth every 90tabs Qutaybeh S. 200mg day Mateo Willingham Tablets Tramadol HCL 1-2 tablets Rebekah FORD, 50mg Tablets every 6 hours as Matthias Alvares MD needed Acetaminophen ER 1 tab by mouth Unknown 650mg q4 hours as Tablets ER needed pain Pantoprazole Sodium 1 by mouth every 90tabs Brandon S. 40mg day Mateo Willingham Tablets DR Vitamin D3 1 by mouth every Unknown 1000Unit day Tablets Lisinopril Take 1 Tablet By 30tabs Nellie Nelson, 2.5mg Tablets Mouth Every Day N.P. Atorvastatin Calcium Take 1 Tablet By 90tabs Matthias Alvares 40mg Mouth Every Day Mateo Welch Tablets History Medications Furosemide Take 1/2 tab by 90tabs Nellie Hunter 08/27/2018 - 40mg Tablets mouth daily Omar, N.P. 12/10/2018 Eliquis take 1 by mouth 120tabs Nellie Hunter 11/28/2017 - 5mg Tablets twice a day Omar, N.P. 12/02/2017 Linezolid one by mouth twice 42tabs M60.0 Gm Tsai 11/10/2017 - 600mg Tablets a day- PT no longer 61 Tangela, 12/02/2017 taking M.DGladys Prednisone take once daily 7tabs Matthias Alvares 08/25/2017 - 20mg Tablets Mateo Welch 09/10/2017 Colcrys take 2 tabs by 3tabs Matthias Alvares 08/25/2017 - 0.6mg Tablets mouth on day 1 then Mateo Welch 10/27/2017 1 tab 1hour later Lisinopril 1 by mouth daily 90tabs I10 Qutaybchris S. 06/10/2014 - 20mg Tablets [facility], 07/17/2017 MShemar Lisinopril 2 by mouth twice a 360tabs 401.0 Qutaybeh S. 05/19/2014 - 5mg Tablets day Maghaydah, 06/10/2014 MShemar Lisinopril 1 by mouth every Qutaybeh S. 04/14/2014 - [facility] MGladysDGladys Hydrochlorothiazide 1 po qd 90tabs Qutaybeh S. 01/08/2013 - 25mg haydrandal, 01/08/2013 Tablets ZahraDGladys Hydrochlorothiazide 1 po qd 90tabs Qutaybeh S. 01/08/2013 - 25mg Maghaydah, 01/08/2013 Tablets MGladysDGladys Hydrochlorothiazide 1 by mouth every 90tabs Qutaybeh S. 01/08/2013 - 25mg day Maghaydah, 07/17/2017 Tablets M.DGladys Hydrochlorothiazide 1 po qd 90tabs Qutaybeh S. 10/15/2012 - 25mg Maghaydah, 01/08/2013 Tablets Mateo Valtrex 1 po q8h 21tabs 782.1 Matthias Alvares 04/23/2012 - 1gm Tablets Mateo Welch 01/08/2013 Hydrochlorothiazide 1 po qd 90tabs Qutaybeh S. 06/01/2010 - 25mg Maghaydah, 10/15/2012 Tablets ZahraDGladys Chlorhexidine Gluconate 15 ml swish/spit po 1monthsu Matthias Alvares 2009 - 0.12% until bottle is Mateo Welch 02/01/2010 Solution gone. Mamiec 1 po qd 90tabs Qutaybeh S. 12/26/2009 - 10mg [facility]ts [facility] Mateo Atenolol 1/2 po bid Matthias Alvares 03/30/2009 - 50mg Tablets Mateo Welch 01/15/2010 Centrum Silver 1 po qd Qutaybeh S. 03/22/2009 - Tablets Maghaydah, 01/30/2010 Mateo Norvasc 2 po qd 90tabs Qutaybeh S. 03/22/2009 - [facility] Mateo Ramipril 1 po qd 90caps Matthias E. 12/29/2008 - 10mg Capsules Mateo Welch 03/22/2009 Diovan 1 po qd 90tabs Matthias EGladys 12/22/2008 - 160mg Tablets Mateo Welch 12/29/2008 Diovan 1 po qd 90tabs Matthias E. 09/26/2008 - 80mg Tablets Mateo Welch 12/22/2008 Simvastatin 1 by mouth every 90tabs Qutaybeh S. 12/31/2007 - 20mg Tablets day Maghaydah, 07/17/2017 Mateo HCTZ 1 po qd 90units Matthias Alvares 12/31/2007 - 25mg. Mateo Welch 03/30/2009 Atenolol 1 po qd 90tabs Matthias Alvares 12/31/2007 - 50mg Tablets Mateo Welch 03/30/2009 Diovan 1 PO qd 90tabs Matthias Alvares 12/31/2007 - 80mg Tablets Mateo Welch 12/31/2007 Naprosyn 1 po bid prn 180tabs Matthias Alvares 12/31/2007 - 500mg Tablets Mateo Welch 01/30/2010 Lisinopril 1 po qd 90tabs Matthias Alvares 12/31/2007 - 20mg Tablets Mateo Welch 09/26/2008 Colace 1 tab by mouth q 12 Unknown - 100mg Capsules hrs as needed 10/27/2017 Coumadin 1 tablet by mouth 90tabs Qutaybeh S. - 4mg Tablets every at night as [facility], 12/19/2017 directed for M.D. dvt,pad,cad Lasix 1 by mouth every 90tabs Qutaybeh S. - 20mg Tablets day [facility], 10/27/2017 MShemar Lisinopril 1 by mouth every Unknown - 2.5mg Tablets day at bedtime for 08/13/2017 HTN Hold for SBP <100 Lovenox inject 85mg Unknown - 100mg/ml Solution subcutaneously 08/13/2017 every 12 hours for DVT Plavix 1 by mouth every 90tabs Qutaybeh S. - 75mg Tablets day [facility], 12/10/2018 M.D. Metoprolol Succinate ER 1 by mouth every 90tabs Qutaybeh S. - 100mg day [facility], 10/27/2017 Tablets ER 24HR M.D. Vitamin D-400 1 by mouth every Unknown - 400Unit Tablets day 11/03/2017 Cefazolin Sodium 2 gm iv every 8 Unknown - 1gm Solution hours x 42 total 12/25/2016 Rec days through [facility] home infusion Metoprolol Succinate ER 1 by mouth every Unknown - 50mg day 11/03/2017 Tablets ER 24HR Senna S 2 tabs by mouth in Unknown - 8.6-50mg Tablets the morning as 04/06/2018 needed, constipation Metoprolol Succinate ER 1/2 tablet by mouth Unknown - 100mg every day 11/03/2017 Tablets ER 24HR Carvedilol 1 by mouth twice a 180tabs Qutaybeh S. - 3.125mg Tablets day [facility], 09/05/2017 Mateo Cilostazol 1 tablet twice a Unknown - 100mg day 07/17/2017 Lisinopril 1 by mouth every 90tabs Qutaybeh S. - 5mg Tablets day (eveing) [facility], 04/14/2014 Mateo Amlodipine Besylate 1 by mouth every 90tabs Qutaybeh S. - 10mg day [facility], 07/17/2017 Tablets Mateo Tylenol Arthritis Pain 1 po qd 100tabs Unknown - 650mg 12/16/2011 Tablets ER Vitamin C 500 mg qd for 1 Unknown - month 02/01/2010 K Dur 1 qd for 10 days Unknown - 10Meq 02/01/2010 Metoprolol Tartrate 1 by mouth twice a 180tabs Qutaybeh S. - 25mg day [facility], 07/17/2017 Tablets Mateo Lasix 1 po qd for 10 days 30tabs Unknown - 40mg Tablets 01/08-01/1802/01/2010 Ferrous Sulfate 1 po bid for 1month 90tabs Unknown - 324mg Tablets post op 06/01/2010 Aspir-81 1 by mouth every 90tabs Qutaybeh S. - 81mg Tablets DR [facility], 08/25/2017 Mateo Vit E one po qd Unknown - 1000mg 01/30/2010 Immunizations CPT Code Status Date Vaccine Lot # [id number] Given 05/09/2016 Fluzone High Dose 71130 Given 02/23/2015 Pneumococcal Conjugate Vaccine 13 Valent For [id number] Intramuscular Use 35219 Given 12/16/2011 Tdap - Tetanus/Diptheria/Acellular Pertussis [id number] 79030 Given 12/31/2007 Pneumonia Vaccine [id number] 20547 Given 11/22/1999 Pneumovax (History By Patient) [id number] 77800 Given 04/05/1999 Td (History By Patient) Vital Signs Date Vital Result Comment 12/10/2018 2:29pm Height 67 inches 5'7" Weight 195.12 lb Heart Rate 59 /min BP Systolic 98 mmHg recheck 122/53 BP Diastolic 47 mmHg recheck 122/53 Body Temperature 96.7 F O2 % BldC Oximetry 99 % BMI (Body Mass Index) 30.6 kg/m2 04/28/2018 1:10pm Height 67 inches 5'7" Weight 178.00 lb Heart Rate 53 /min BP Systolic Sitting 120 mmHg BP Diastolic Sitting 80 mmHg O2 % BldC Oximetry 98 % BMI (Body Mass Index) 27.9 kg/m2 04/07/2018 3:06pm Height 67 inches 5'7" Weight 172.25 lb Heart Rate 56 /min BP Systolic 122 mmHg right arm BP Diastolic 66 mmHg right arm BMI (Body Mass Index) 27.0 kg/m2 Ejection Fraction 45-50% 10/29/2017 Echocardiogram 12/01/2017 2:52pm Height 67 inches 5'7" Weight 175.00 lb Heart Rate 72 /min BP Systolic Sitting 152 mmHg BP Diastolic Sitting 62 mmHg Respiratory Rate 14 /min Body Temperature 97.6 F BMI (Body Mass Index) 27.4 kg/m2 11/25/2017 10:52am Height 67 inches 5'7" Weight 170.00 lb Heart Rate 62 /min BP Systolic Sitting 110 mmHg lue reg cuff BP Diastolic Sitting 50 mmHg lue reg cuff BP Systolic Standing 115 mmHg BP Diastolic Standing 60 mmHg Respiratory Rate 16 /min BMI (Body Mass Index) 26.6 kg/m2 Ejection Fraction 45-50% 11/18/2017 echo 11/12/2017 1:51pm Height 67 inches 5'7" Weight 176.00 lb Heart Rate 74 /min BP Systolic 138 mmHg BP Diastolic 74 mmHg Respiratory Rate 18 /min Body Temperature 97.3 F Pain Level 0 BMI (Body Mass Index) 27.6 kg/m2 11/10/2017 2:14pm Height 67 inches 5'7" Weight 183.50 lb Heart Rate 72 /min BP Systolic Sitting 110 mmHg BP Diastolic Sitting 60 mmHg Respiratory Rate 14 /min Body Temperature 97.4 F BMI (Body Mass Index) 28.7 kg/m2 11/04/2017 2:28pm Height 67 inches 5'7" Weight 178.25 lb with shoes Heart Rate 80 /min BP Systolic Sitting 122 mmHg Lue reg cuff BP Diastolic Sitting 62 mmHg Lue reg cuff Respiratory Rate 16 /min BMI (Body Mass Index) 27.9 kg/m2 Ejection Fraction 45-50% 09/24/2017-echo 10/27/2017 3:56pm Weight 178.00 lb Heart Rate 51 /min BP Systolic Sitting 110 mmHg BP Diastolic Sitting 60 mmHg O2 % BldC Oximetry 96 % 10/16/2017 2:48pm Height 67 inches 5'7" Weight 181.50 lb Heart Rate 72 /min BP Systolic Sitting 142 mmHg BP Diastolic Sitting 80 mmHg Respiratory Rate 14 /min Body Temperature 97.7 F BMI (Body Mass Index) 28.4 kg/m2 09/11/2017 11:06am Height 67 inches 5'7" Weight 186.25 lb Heart Rate 76 /min BP Systolic 158 mmHg Ra< reg BP Diastolic 78 mmHg Ra< reg BP Systolic Sitting 168 mmHg LA< reg BP Diastolic Sitting 78 mmHg LA< reg O2 % BldC Oximetry 97 % room air BMI (Body Mass Index) 29.2 kg/m2 Ejection Fraction 50%-55% 08/22/17 echo 08/26/2017 2:46pm Height 67 inches 5'7" Weight 187.75 lb Heart Rate 68 /min BP Systolic Sitting 138 mmHg LA< reg BP Diastolic Sitting 68 mmHg LA< reg BMI (Body Mass Index) 29.4 kg/m2 Ejection Fraction 50%-55% 08/22/17 echo 08/13/2017 2:29pm Weight 180.00 lb Heart Rate 60 /min BP Systolic Sitting 128 mmHg BP Diastolic Sitting 72 mmHg Body Temperature 94.0 F O2 % BldC Oximetry 95 % 07/18/2017 10:22am Height 66.25 inches 5'6.25" Weight 185.00 lb unable to stand, 185LBS Heart Rate 66 /min BP Systolic Sitting 128 mmHg Rue reg cuff BP Diastolic Sitting 70 mmHg Rue reg cuff Respiratory Rate 17 /min BMI (Body Mass Index) 29.6 kg/m2 Ejection Fraction 40-45% 07/13 [facility] Echo 06/03/2017 9:43am Height 66.25 inches 5'6.25" Weight 204.00 lb Heart Rate 66 /min BP Systolic Sitting 154 mmHg BP Diastolic Sitting 68 mmHg Body Temperature 97.1 F O2 % BldC Oximetry 96 % BMI (Body Mass Index) 32.7 kg/m2 06/02/2017 9:52am Height 66.5 inches 5'6.50" Weight 205.00 lb Heart Rate 74 /min BP Systolic Sitting 186 mmHg BP Diastolic Sitting 72 mmHg BMI (Body Mass Index) 32.6 kg/m2 Ejection Fraction 50%-55% Levi 03/19/2017 01/06/2017 3:45pm Height 66.5 inches 5'6.50" Weight 195.75 lb w/shoes Heart Rate 76 /min BP Systolic Sitting 158 mmHg LA lg cuff BP Diastolic Sitting 82 mmHg LA lg cuff BMI (Body Mass Index) 31.1 kg/m2 Ejection Fraction 55-60% Echo 01/24/16 12/22/2015 10:29am Height 66.5 inches 5'6.50" Weight 200.75 lb with shoes Heart Rate 68 /min BP Systolic 150 mmHg LA lrg cuff BP Diastolic 60 mmHg LA lrg cuff BMI (Body Mass Index) 31.9 kg/m2 Ejection Fraction 55% - 60% echo 12/12/14 03/07/2015 9:10am Height 66.5 inches 5'6.50" Weight 197.00 lb w/shoes Heart Rate 64 /min BP Systolic Sitting 186 mmHg LA reg cuff BP Diastolic Sitting 80 mmHg LA reg cuff BMI (Body Mass Index) 31.3 kg/m2 Ejection Fraction 55-60 echo 12/12/14 02/23/2015 10:11am Height 66.5 inches 5'6.50" Weight 194.00 lb Heart Rate 62 /min BP Systolic Sitting 136 mmHg BP Diastolic Sitting 78 mmHg Body Temperature 97.6 F O2 % BldC Oximetry 98 % BMI (Body Mass Index) 30.8 kg/m2 12/14/2014 10:02am Height 66.5 inches 5'6.50" Weight 201.00 lb with clothes Heart Rate 62 /min BP Systolic Sitting 134 mmHg LA< reg BP Diastolic Sitting 86 mmHg LA< reg BMI (Body Mass Index) 32.0 kg/m2 Ejection Fraction 55%-60% 12/12/14 echo, report pending 06/01/2014 1:59pm Height 66.5 inches 5'6.50" Weight 200.25 lb Heart Rate 64 /min BP Systolic Sitting 126 mmHg BP Diastolic Sitting 64 mmHg Body Temperature 97.3 F BMI (Body Mass Index) 31.8 kg/m2 05/19/2014 1:25pm Height 66.5 inches 5'6.50" Weight 200.00 lb Heart Rate 64 /min BP Systolic Sitting 158 mmHg LA reg cuff BP Diastolic Sitting 74 mmHg LA reg cuff BP Systolic Recheck 164 mmHg Home unit BP Diastolic Recheck 68 mmHg Home unit BMI (Body Mass Index) 31.8 kg/m2 04/14/2014 3:48pm Height 66.5 inches 5'6.50" Weight 199.50 lb w/shoes Heart Rate 58 /min BP Systolic Sitting 192 mmHg LA reg cuff BP Diastolic Sitting 76 mmHg LA reg cuff Respiratory Rate 14 /min BMI (Body Mass Index) 31.7 kg/m2 01/10/2014 10:02am Height 66.5 inches 5'6.50" Weight 199.25 lb with sneakers Heart Rate 72 /min BP Systolic Sitting 168 mmHg BP Diastolic Sitting 78 mmHg BMI (Body Mass Index) 31.7 kg/m2 05/24/2013 2:26pm Height 66.5 inches 5'6.50" Weight 197.50 lb Heart Rate 68 /min BP Systolic Sitting 144 mmHg 166/80 repeat BP Diastolic Sitting 66 mmHg 166/80 repeat BMI (Body Mass Index) 31.4 kg/m2 01/08/2013 3:09pm Height 66.5 inches 5'6.50" Weight 197.00 lb Heart Rate 55 /min BP Systolic 138 mmHg BP Diastolic 68 mmHg BMI (Body Mass Index) 31.3 kg/m2 04/23/2012 1:05pm Height 66.5 inches 5'6.50" Weight 194.00 lb Heart Rate 64 /min BP Systolic Sitting 166 mmHg BP Diastolic Sitting 82 mmHg BMI (Body Mass Index) 30.8 kg/m2 02/18/2012 10:42am Height 66.5 inches 5'6.50" Weight 195.12 lb Heart Rate 60 /min BP Systolic Sitting 148 mmHg His: 156/70 BP Diastolic Sitting 82 mmHg His: 156/70 BMI (Body Mass Index) 31.0 kg/m2 01/16/2012 10:24am Height 66.5 inches 5'6.50" Weight 195.50 lb Heart Rate 68 /min BP Systolic Sitting 150 mmHg BP Diastolic Sitting 80 mmHg BMI (Body Mass Index) 31.1 kg/m2 01/01/2012 2:22pm Height 66.5 inches 5'6.50" Weight 197.00 lb Heart Rate 60 /min BP Systolic Sitting 156 mmHg BP Diastolic Sitting 76 mmHg BMI (Body Mass Index) 31.3 kg/m2 12/16/2011 2:33pm Height 66.5 inches 5'6.50" Weight 197.00 lb Heart Rate 64 /min BP Systolic Sitting 156 mmHg 140/66 in rt arm BP Diastolic Sitting 78 mmHg 140/66 in rt arm BMI (Body Mass Index) 31.3 kg/m2 05/24/2011 11:27am Height 68 inches 5'8" Weight 193.00 lb Heart Rate 51 /min BP Systolic Sitting 160 mmHg BP Diastolic Sitting 80 mmHg BMI (Body Mass Index) 29.3 kg/m2 12/25/2010 2:05pm Weight 199.00 lb Heart Rate 68 /min BP Systolic Sitting 156 mmHg BP Diastolic Sitting 78 mmHg 06/01/2010 9:08am Weight 203.00 lb Heart Rate 60 /min BP Systolic Sitting 160 mmHg BP Diastolic Sitting 82 mmHg 05/02/2010 9:56am Weight 196.00 lb Heart Rate 72 /min BP Systolic Sitting 150 mmHg BP Diastolic Sitting 78 mmHg 02/01/2010 11:15am Height 67 inches 5'7" Weight 195.00 lb Heart Rate 88 /min BP Systolic Sitting 140 mmHg BP Diastolic Sitting 78 mmHg BMI (Body Mass Index) 30.5 kg/m2 01/15/2010 3:37pm Height 67 inches 5'7" Weight 198.00 lb BP Systolic 180 mmHg BP Diastolic 80 mmHg BMI (Body Mass Index) 31.0 kg/m2 12/26/2009 9:18am Weight 205.00 lb Heart Rate 56 /min BP Systolic 180 mmHg BP Diastolic 76 mmHg Respiratory Rate 16 /min 03/30/2009 10:25am Height 67 inches 5'7" Heart Rate 60 /min BP Systolic Sitting 210 mmHg BP Diastolic Sitting 94 mmHg 03/22/2009 10:21am Height 67 inches 5'7" Weight 202.00 lb Heart Rate 55 /min BP Systolic Sitting 160 mmHg L BP Diastolic Sitting 80 mmHg L BMI (Body Mass Index) 31.6 kg/m2 02/14/2009 10:50am Weight 202.00 lb Heart Rate 68 /min BP Systolic Sitting 160 mmHg BP Diastolic Sitting 70 mmHg 12/22/2008 2:41pm Height 67 inches 5'7" Weight 208.00 lb Heart Rate 60 /min BP Systolic Sitting 162 mmHg BP Diastolic Sitting 80 mmHg BMI (Body Mass Index) 32.6 kg/m2 12/31/2007 3:10pm Height 67 inches 5'7" Weight 206.00 lb Heart Rate 56 /min BP Systolic Sitting 156 mmHg BP Diastolic Sitting 80 mmHg BMI (Body Mass Index) 32.3 kg/m2 Results Test Date Facility Test Result H/L Range Note Laboratory test 05/01/2018 [facility] Uric Acid 7.2 mg/dL N 4.4-7.6 1, 2 finding [address] [place] [address] [phone] Lipid Profile 05/01/2018 [facility] Triglycerides 103 mg/dL 3 (Trig/Chol/HDL) [address] [place] [address] [phone] Cholesterol 123 mg/dL 4 HDL Cholesterol 44.5 mg/dL 5 LDL Cholesterol 58 mg/dL 6 Laboratory test finding 04/28/2018 [facility] Hemoglobin A1c 6.2 5-7 Laboratory test finding 04/23/2018 [facility] Alt 17 U/L N 7- 52 [address] [place] [address] [phone] Ast (Sgot) 20 U/L N 13-39 Basic Metabolic Panel 04/23/2018 [facility] Sodium 138 mmol/L N 135-145 [address] [place] [address] [phone] Potassium 4.8 mmol/L N 3.5-5.0 Chloride 106 mmol/L N 101-111 Co2 Carbon Dioxide 27 mmol/L N 22-32 Anion Gap 5 mmol/L N 2-11 Glucose 133 mg/dL High 70-100 Blood Urea Nitrogen 23 mg/dL N 6-24 Creatinine 1.14 mg/dL N 0.67-1.17 BUN/Creatinine Ratio 20.2 High 8-20 Calcium 9.2 mg/dL N 8.6-10.3 Egfr Non- 62.0 >60 Egfr 75.0 >60 7 Laboratory test 04/23/2018 [facility] TSH (Thyroid 3.79 N 0.34 -5.[address] Stim Horm) mcIU/[place] [address] [phone] Laboratory test 11/03/2017 [facility] C Reactive 13.31 mg/L High < 5.[address] [place] [address] [phone] Comp Metabolic 11/03/2017 [facility] Sodium 134 mmol/L Low 139 -[address] [place] [address] [phone] Potassium 3.9 mmol/L N 3.5-5.0 Chloride 98 mmol/L Low 101-111 Co2 Carbon Dioxide 27 mmol/L N 22-32 Anion Gap 9 mmol/L N 2-11 Glucose 161 mg/dL High 70-100 Blood Urea Nitrogen 29 mg/dL High 6-24 Creatinine 1.03 mg/dL N 0.67-1.17 BUN/Creatinine Ratio 28.2 High 8-20 Calcium 9.4 mg/dL N 8.6-10.3 Total Protein 7.3 g/dL N 6.4-8.9 Albumin 3.9 g/dL N 3.2-5.2 Globulin 3.4 g/dL N 2-4 Albumin/Globulin Ratio 1.1 N 1-3 Total Bilirubin 0.50 mg/dL N 0.2-1.0 Alkaline Phosphatase 79 U/L N 34-104 Alt 3 U/L Low 7-52 Ast 16 U/L N 13-39 Egfr Non- 69.8 >60 Egfr 89.8 >60 9 CBC Auto Diff 11/03/2017 [facility] White Blood 6.4 10^3/uL N 3.5-10.[address] [place] [address] [phone] Red Blood Count 3.85 10^6/uL Low 4.0-5.4 Hemoglobin 10.7 g/dL Low 14.0-18.0 Hematocrit 32 % Low 42-52 Mean Corpuscular Volume 84 fL N 80-94 Mean Corpuscular Hemoglobin 28 pg N 27-31 Mean Corpuscular HGB Conc 33 g/dL N 31-36 Red Cell Distribution Width 19 % High 10.5-15 Platelet Count 260 10^3/uL N 150-450 Mean Platelet Volume 7.5 um3 N 7.4-10.4 Abs Neutrophils 4.6 10^3/uL N 1.5-7.7 Abs Lymphocytes 0.8 10^3/uL Low 1.0-4.8 Abs Monocytes 0.7 10^3/uL N 0-0.8 Abs Eosinophils 0.3 10^3/uL N 0-0.6 Abs Basophils 0 10^3/uL N 0-0.2 Abs Nucleated RBC 0 10^3/uL Granulocyte % 71.5 % N 38-83 Lymphocyte % 12.2 % Low 25-47 Monocyte % 10.5 % High 0-7 Eosinophil % 5.3 % N 0-6 Basophil % 0.5 % N 0-2 Nucleated Red Blood Cells % 0 Laboratory test 10/31/2017 [facility] Surgical SEE RESULT [address] [place] [address] [phone] Laboratory test 10/24/2017 [facility] Tissue Culture SEE RESULT [address] & [place] [address] [phone] Inr/Protime 10/10/2017 [facility] Inr 1.62 High 0.77- [address] 1.02 [place] [address] [phone] CBC Auto Diff 09/22/2017 [facility] White Blood 10.9 High 3.5- [address] Count 10^3/uL 0.8 [place] [address] [phone] Red Blood Count 3.46 10^6/uL Low 4.0-5.4 Hemoglobin 10.1 g/dL Low 14.0-18.0 Hematocrit 29 % Low 42-52 Mean Corpuscular Volume 84 fL N 80-94 Mean Corpuscular Hemoglobin 29 pg N 27-31 Mean Corpuscular HGB Conc 35 g/dL N 31-36 Red Cell Distribution Width 18 % High 10.5-15 Platelet Count 266 10^3/uL N 150-450 Mean Platelet Volume 7 um3 Low 7.4-10.4 Abs Neutrophils 9.4 10^3/uL High 1.5-7.7 Abs Lymphocytes 0.6 10^3/uL Low 1.0-4.8 Abs Monocytes 0.8 10^3/uL N 0-0.8 Abs Eosinophils 0 10^3/uL N 0-0.6 Abs Basophils 0.1 10^3/uL N 0-0.2 Abs Nucleated RBC 0 10^3/uL Granulocyte % 86.5 % High 38-83 Lymphocyte % 5.1 % Low 25-47 Monocyte % 7.6 % High 0-7 Eosinophil % 0.1 % N 0-6 Basophil % 0.7 % N 0-2 Nucleated Red Blood Cells % 0 Inr/Protime 09/22/2017 [facility] Inr 2.37 High 0.77-1.[address] [place] [address] [phone] Laboratory test 09/22/2017 [facility] Partial 37.1 High 26.0- 36.[address] [place] [address] Time PTT [phone] Lactic Acid 1.7 mmol/L N 0.5-2.0 12 Comp Metabolic Panel 09/22/2017 [facility] Sodium 126 mmol/L Low 133-[address] [place] [address] [phone] Potassium 4.4 mmol/L N 3.5-5.0 Chloride 94 mmol/L Low 101-111 Co2 Carbon Dioxide 24 mmol/L N 22-32 Anion Gap 8 mmol/L N 2-11 Glucose 142 mg/dL High 70-100 Blood Urea Nitrogen 19 mg/dL N 6-24 Creatinine 1.14 mg/dL N 0.67-1.17 BUN/Creatinine Ratio 16.7 N 8-20 Calcium 9.2 mg/dL N 8.6-10.3 Total Protein 7.4 g/dL N 6.4-8.9 Albumin 3.5 g/dL N 3.2-5.2 Globulin 3.9 g/dL N 2-4 Albumin/Globulin Ratio 0.9 Low 1-3 Total Bilirubin 1.00 mg/dL N 0.2-1.0 Alkaline Phosphatase 67 U/L N 34-104 Alt 16 U/L N 7-52 Ast 15 U/L N 13-39 Egfr Non- 62.1 >60 Egfr 79.9 >60 13 Laboratory 09/22/2017 [facility] Troponin-I 0.08 ng/mL High < 0.04 14 test finding [address] (TnI) [place] [address] [phone] Wound 09/22/2017 [facility] Wound/Misc SEE RESULT 15 Culture/Sensi [address] [place] [address] Stain [phone] Laboratory 09/22/2017 [facility] MRSA/S. aureus SEE RESULT 16 test finding [address] [place] [address] [phone] Rapid 09/22/2017 [facility] Influenza A NEGATIVE Negative 17 Influenza A & [address] [place] [address] [phone] Influenza B Molecular NEGATIVE Negative Laboratory test 09/22/2017 [facility] Rapid Influenza SEE RESULT [address] [place] [address] [phone] Liver Function 09/19/2017 [facility] Total Protein 6.8 g/dL N 6.4-8. Panel [address] [place], [place] [id number] [phone] Albumin 3.6 g/dL N 3.2-5.2 Globulin 3.2 g/dL N 2-4 Albumin/Globulin Ratio 1.1 N 1-3 Total Bilirubin 0.70 mg/dL N 0.2-1.0 Direct Bilirubin 0.20 mg/dL High 0.03-0.18 Indirect Bilirubin 0.5 mg/dL N 0.3-1.0 Alkaline Phosphatase 71 U/L N 34-104 Alt 9 U/L N 7-52 Ast 12 U/L Low 13-39 Laboratory test 09/19/2017 [facility] TSH (Thyroid 3.11 N 0.34 -5.[address] Stim Horm) mcIU/[place] [address] [phone] Inr/Protime 09/19/2017 [facility] Inr 2.23 High 0.77-1.[address] [place] [address] [phone] Inr/Protime 09/11/2017 [facility] Inr 3.18 High 0.77-1.[address] [place] [address] [phone] CBC Auto Diff 07/20/2017 [facility] White Blood 8.8 10^3/uL N 3.5-10.[address] [place] [address] [phone] Red Blood Count 2.67 10^6/uL Low 4.0-5.4 Hemoglobin 8.3 g/dL Low 14.0-18.0 Hematocrit 24 % Low 42-52 Mean Corpuscular Volume 88 fL N 80-94 Mean Corpuscular Hemoglobin 31 pg N 27-31 Mean Corpuscular HGB Conc 35 g/dL N 31-36 Red Cell Distribution Width 15 % N 10.5-15 Platelet Count 301 10^3/uL N 150-450 Mean Platelet Volume 7 um3 Low 7.4-10.4 Abs Neutrophils 7.5 10^3/uL N 1.5-7.7 Abs Lymphocytes 0.9 10^3/uL Low 1.0-4.8 Abs Monocytes 0.4 10^3/uL N 0-0.8 Abs Eosinophils 0 10^3/uL N 0-0.6 Abs Basophils 0 10^3/uL N 0-0.2 Abs Nucleated RBC 0 10^3/uL Granulocyte % 84.7 % High 38-83 Lymphocyte % 10.2 % Low 25-47 Monocyte % 4.2 % N 1-9 Eosinophil % 0.4 % N 0-6 Basophil % 0.5 % N 0-2 Nucleated Red Blood Cells % 0 Laboratory test 07/20/2017 [facility] Troponin-I 0.02 ng/mL < 0.[address] (TnI) [place] [address] [phone] Comp Metabolic 07/20/2017 [facility] Sodium 127 mmol/L Low 133 -[address] [place] [address] [phone] Potassium 4.7 mmol/L N 3.5-5.0 Chloride 95 mmol/L Low 101-111 Co2 Carbon Dioxide 26 mmol/L N 22-32 Anion Gap 6 mmol/L N 2-11 Glucose 227 mg/dL High 70-100 Blood Urea Nitrogen 30 mg/dL High 6-24 Creatinine 1.57 mg/dL High 0.67-1.17 BUN/Creatinine Ratio 19.1 N 8-20 Calcium 8.7 mg/dL N 8.6-10.3 Total Protein 6.8 g/dL N 6.4-8.9 Albumin 3.2 g/dL N 3.2-5.2 Globulin 3.6 g/dL N 2-4 Albumin/Globulin Ratio 0.9 Low 1-3 Total Bilirubin 0.50 mg/dL N 0.2-1.0 Alkaline Phosphatase 69 U/L N 34-104 Alt 20 U/L N 7-52 Ast 19 U/L N 13-39 Egfr Non- 42.9 >60 Egfr 55.2 >60 20 Inr/Protime 07/20/2017 [facility] Inr 2.32 High 0.77-1.[address] [place] [address] [phone] Laboratory test 07/20/2017 [facility] Partial 42.0 High 26.0- 36.[address] [place] [address] Time PTT [phone] Lactic Acid 2.2 mmol/L High 0.5-2.0 22 Laboratory test 06/03/2017 [facility] In House Hemoglobin A1c 6.3 5-7 finding Comp Metabolic Panel 05/26/2017 [facility] Sodium 134 mmol/L N 133-[address] [place] [address] [phone] Chloride 100 mmol/L Low 101-111 Co2 Carbon Dioxide 29 mmol/L N 22-32 Glucose 120 mg/dL High 70-100 Blood Urea Nitrogen 23 mg/dL N 6-24 Creatinine 1.32 mg/dL High 0.67-1.17 BUN/Creatinine Ratio 17.4 N 8-20 Calcium 9.9 mg/dL N 8.6-10.3 Total Protein 7.2 g/dL N 6.4-8.9 Albumin 4.1 g/dL N 3.2-5.2 Globulin 3.1 g/dL N 2-4 Albumin/Globulin Ratio 1.3 N 1-3 Total Bilirubin 0.50 mg/dL N 0.2-1.0 Alkaline Phosphatase 55 U/L N 34-104 Alt 12 U/L N 7-52 Ast 15 U/L N 13-39 Egfr Non- 52.5 N >60 Egfr 67.5 N >60 23 Potassium 5.3 mmol/L High 3.5-5.0 Anion Gap 5 mmol/L N 2-11 Lipid Profile 05/26/2017 [facility] Triglycerides 132 mg/dL N 24 (Trig/Chol/HDL) [address] [place] [address] [phone] Cholesterol 174 mg/dL N 25 HDL Cholesterol 41.1 mg/dL N 26 LDL Cholesterol 107 mg/dL N 27 Basic Metabolic Panel 02/04/2017 [facility] Sodium 133 mmol/L N 133-145 [address] [place] [address] [phone] Potassium 4.4 mmol/L N 3.5-5.0 Chloride 101 mmol/L N 101-111 Co2 Carbon Dioxide 25 mmol/L N 22-32 Anion Gap 7 mmol/L N 2-11 Glucose 85 mg/dL N 70-100 Blood Urea Nitrogen 22 mg/dL N 6-24 Creatinine 1.22 mg/dL High 0.67-1.17 BUN/Creatinine Ratio 18.0 N 8-20 Calcium 9.7 mg/dL N 8.6-10.3 Egfr Non- 57.4 N >60 Egfr 73.9 N >60 28 Comp Metabolic 02/27/2015 [facility] Sodium 132 mmol/L Low 133 -145 29 Panel [address] [place] [address] [phone] Potassium 4.5 mmol/L N 3.5-5.0 Chloride 97 mmol/L Low 101-111 Co2 Carbon Dioxide 27 mmol/L N 22-32 Anion Gap 8 mmol/L N 2-11 Glucose 110 mg/dL High 70-100 Blood Urea Nitrogen 17 mg/dL N 6-24 Creatinine 1.13 mg/dL N 0.67-1.17 BUN/Creatinine Ratio 15.0 N 8-20 Calcium 9.4 mg/dL N 8.6-10.3 Total Protein 7.3 g/dL N 6.4-8.9 Albumin 4.3 g/dL N 3.2-5.2 Globulin 3.0 g/dL N 2-4 Albumin/Globulin Ratio 1.4 N 1-3 Total Bilirubin 0.60 mg/dL N 0.2-1.0 Alkaline Phosphatase 50 U/L N 34-104 Alt 14 U/L N 7-52 Ast 19 U/L N 13-39 Egfr Non- 63.1 N >60 Egfr 81.1 N >60 30 Lipid Profile 02/27/2015 [facility] Triglycerides 139 mg/dL N 31 (Trig/Chol/HDL) [address] [place] [address] [phone] Cholesterol 165 mg/dL N 32 HDL Cholesterol 46.2 mg/dL N 33 LDL Cholesterol 91 mg/dL N 34 Laboratory test 02/27/2015 [facility] Hemoglobin A1c 6.0 % N Less than [address] (Glyco HGB) 6.0 [place] [address] [phone] Laboratory test 02/17/2015 [facility] Surgical SEE RESULT [address] [place] [address] [phone] Basic Metabolic 06/07/2014 [facility] Sodium 133 mmol/L N 133- [address] [place] [address] [phone] Potassium 4.6 mmol/L N 3.5-5.0 37 Chloride 100 mmol/L Low 101-111 Co2 Carbon Dioxide 25 mmol/L N 22-32 Anion Gap 8 mmol/L N 2-11 Glucose 96 mg/dL N 70-100 Blood Urea Nitrogen 24 mg/dL N 6-24 Creatinine 1.15 mg/dL N 0.67-1.17 BUN/Creatinine Ratio 20.9 High 8-20 Calcium 9.5 mg/dL N 8.6-10.3 Egfr Non- 62.0 N >60 Egfr 79.7 N >60 38 Laboratory test 06/01/2014 [facility] Hemoglobin A1c 5.7 5-7 finding Basic Metabolic 04/22/2014 [facility] Sodium 135 mmol/L N 133- 145 [address] [place] [address] [phone] Potassium 4.3 mmol/L N 3.7-5.6 Chloride 101 mmol/L N 101-111 Co2 Carbon Dioxide 29 mmol/L N 22-32 Anion Gap 5 mmol/L N 2-11 Glucose 114 mg/dL High 70-100 Blood Urea Nitrogen 22 mg/dL N 6-24 Creatinine 1.02 mg/dL N 0.67-1.17 BUN/Creatinine Ratio 21.6 High 8-20 Calcium 9.4 mg/dL N 8.6-10.3 Egfr Non- 71.2 N >60 Egfr 91.6 N >60 40 Laboratory test 04/22/2014 [facility] Creatine Kinase 83 U/L N 10-223 41 finding [address] [place] [address] [phone] Lipid Profile 04/22/2014 [facility] Triglycerides 140 mg/dL N 42 (Trig/Chol/HDL) [address] [place] [address] [phone] Cholesterol 182 mg/dL N 43 HDL Cholesterol 52.1 mg/dL N 44 LDL Cholesterol 102 mg/dL N 45 Laboratory test 05/24/2013 [facility] Hemoglobin A1c 6.0 5-7 finding Laboratory test 02/15/2013 [facility] Blood Urea 21 mg/dL 6- 24 finding 101 [facility] [place] [address] [phone] Creatinine 02/15/2013 [facility] Creatinine 1.10 mg/dL 0.50- 1.40 [address] [place] [address] [phone] Egfr Non- 65.4 >60 Egfr 84.2 >60 46 Laboratory test 01/11/2013 [facility] Creatine Kinase 92 U/L 0-200 47 finding [address] [place] [address] [phone] Pathologist Review (SEE NOTE) 48 Liver Function 01/11/2013 [facility] Total Protein 6.8 g/dL 6.2-8.1 Panel [address] [place] [address] [phone] Albumin 3.8 g/dL 3.2-5.2 Globulin 3.0 g/dL 2-4 Albumin/Globulin Ratio 1.3 1-3 Total Bilirubin 0.8 mg/dL 0.4-1.5 Direct Bilirubin 0.1 mg/dL 0.1-0.5 Indirect Bilirubin 0.7 mg/dL 0.3-1.0 Alkaline Phosphatase 58 U/L 30-110 Alt 19 U/L 14-54 Ast 22 U/L 12-42 Basic Metabolic Panel 01/11/2013 [facility] Sodium 133 mmol/L 133-145 [address] [place] [address] [phone] Potassium 4.2 mmol/L 3.5-5.0 Chloride 101 mmol/L 101-111 Co2 Carbon Dioxide 25.0 mmol/L 22-32 Anion Gap 7.0 mmol/L 2-11 Glucose 121 mg/dL High 70-100 Blood Urea Nitrogen 19 mg/dL 6-24 Creatinine 1.00 mg/dL 0.50-1.40 BUN/Creatinine Ratio 19.0 8-20 Calcium 9.3 mg/dL 8.1-9.9 Egfr Non- 73.2 >60 Egfr 94.2 >60 49 Lipid Profile 01/11/2013 [facility] Triglycerides 122 mg/dL 40-200 (Trig/Chol/HDL) [address] [place] [address] [phone] Cholesterol 136 mg/dL Less than 200 HDL Cholesterol 42 mg/dL 40-60 50 Cholesterol/HDL Ratio 3.2 Average 1-4.44 LDL Cholesterol 69.6 Less Than 100 51 CBC With 01/11/2013 [facility] White Blood 7.1 10^3/uL 4.8- 10.8 Manual Diff [address] [place] [address] [phone] Red Blood Count 4.57 10^6/uL 4.0-5.4 Hemoglobin [...] Morphology Normal Normal Basic Metabolic Panel 02/03/2012 [facility] Sodium 135 mmol/L 135-[address] [place] [address] [phone] Potassium 4.1 mmol/L 3.5-5.0 Chloride 99 mmol/L Low 101-111 Co2 (Carbon Dioxide) 29.0 mmol/L 22-32 Anion Gap 7.0 mmol/L 2-11 52 Glucose 100 mg/dL 70-100 BUN 17 mg/dL 6-24 Creatinine 1.1 mg/dL 0.50-1.40 One Over Creatinine 0.90 BUN/Creatinine Ratio 15.5 8-20 Calcium 9.6 mg/dL 8.1-9.9 eGFR Non- 65.6 > 60 eGFR 84.4 > 60 53 Lipid Profile (Trig/Chol/HDL) 12/02/2011 Triglyceride 90 mg/dL 40-200 Cholesterol 154 mg/dL Less Than 200 54 High Density Lipoprotein 48 mg/dL 40-60 55 Cholesterol/HDL Ratio 3.21 AVERAGE 1-4.97 Low Density Lipoprotein 88 mg/dL Less Than 100 56 Comp Metabolic Panel 12/02/2011 Sodium 135 mmol/L 135-145 Potassium 3.6 mmol/L 3.5-5.0 Chloride 101 mmol/L 101-111 Co2 (Carbon Dioxide) 28.0 mmol/L 22-32 Anion Gap 6.0 mmol/L 2-11 57 Glucose 96 mg/dL 70-100 BUN 15 mg/dL 6-24 Creatinine 0.9 mg/dL 0.50-1.40 One Over Creatinine 1.11 BUN/Creatinine Ratio 16.7 8-20 Calcium 9.1 mg/dL 8.1-9.9 Total Protein 7.1 GM/DL 6.2-8.1 Albumin 4.1 GM/DL 3.2-5.2 Globulin 3.0 GM/DL 2-4 Albumin/Globulin Ratio 1.4 1-3 Bilirubin Total 0.9 mg/dL 0.4-1.5 58 Alkaline Phosphatase 57 U/L 39-117 Alt (SGPT) 32 U/L 17-63 Ast (Sgot) 34 U/L 12-42 eGFR Non- 82.9 > 60 eGFR 106.7 > 60 59 Laboratory test 12/02/2011 Hemoglobin A1c 6.6 % High Less Than 60 finding 6.0 CBC Auto Diff 04/23/2011 [facility] White Blood 6.4 CUMM 4.8- 10.[address] [place] [address] [phone] Red Cell Count 4.60 CUMM 4.6-6.2 Hemoglobin [...] Eosinophils 0.3 0-0.6 Abs Basophils 0 0-0.2 61 Basic Metabolic Panel 04/23/2011 [facility] Sodium 135 mmol/L 135-[address] [place] [address] [phone] Potassium 4.3 mmol/L 3.5-5.0 Chloride 98 mmol/L Low 101-111 Co2 (Carbon Dioxide) 31.0 mmol/L 22-32 Anion Gap 6.0 mmol/L 2-11 62 Glucose 101 mg/dL High 70-100 BUN 16 mg/dL 6-24 Creatinine 1.0 mg/dL 0.50-1.40 One Over Creatinine 1.00 BUN/Creatinine Ratio 16.0 8-20 Calcium 9.6 mg/dL 8.1-9.9 eGFR Non- 73.5 > 60 eGFR 94.5 > 60 63 CBC Auto Diff 01/16/2011 [facility] White Blood 5.7 CUMM 4.8- 10.[address] [place] [address] [phone] Red Cell Count 4.66 CUMM 4.6-6.2 Hemoglobin [...] Basophils 0.1 0-0.2 Basic Metabolic Panel 01/16/2011 [facility] Sodium 139 mmol/L 135-[address] [place] [address] [phone] Potassium 3.8 mmol/L 3.5-5.0 Chloride 101 mmol/L 101-111 Co2 (Carbon Dioxide) 30.0 mmol/L 22-32 Anion Gap 8.0 mmol/L 2-11 64 Glucose 150 mg/dL High 70-100 BUN 13 mg/dL 6-24 Creatinine 1.00 mg/dL 0.50-1.40 One Over Creatinine 1.00 BUN/Creatinine Ratio 13.0 8-20 Calcium 10.0 mg/dL High 8.1-9.9 eGFR Non- 73.7 > 60 eGFR 94.7 > 60 65 CBC With 05/10/2010 [facility] White Blood 6.2 CUMM 4.8-10.8 66 Electronic Diff [address] [place] [address] [phone] Red Cell Count 4.84 CUMM 4.6-6.2 Hemoglobin 15.0 g/dL 14.0-18.0 Hematocrit 43 % 42-52 Mean Corpuscular Volume 88 um3 80-94 Mean Corpuscular Hemoglob 31 pg 27-31 Mean Corpuscular HGB Cone 35 g/dL 32-36 Redcell Distribution WDTH 15 % 10.5-15 Platelet Count 240 CUMM 150-450 Mean Platelet Volume 7.4 um3 7.4-10.4 Gran % 57.4 % 38-83 Lymph % 28.9 % 25-47 Mononuclear % 8.8 % 1-9 Eosinophil % 4.1 % 0-6 Basophil % 0.8 % 0-2 Abs Lymphs 1.8 1.0-4.8 Abs Mononuclear 0.5 0-0.8 Absolute Neutrophil Count 3.6 1.5-7.7 Abs Eosinophils 0.3 0-0.6 Abs Basophils 0 0-0.2 Basic Metabolic Panel 05/10/2010 [facility] Sodium 138 mmol/L 135-145 [address] [place] [address] [phone] Potassium 4.4 mmol/L 3.5-5.0 Chloride 102 mmol/L 101-111 Co2 (Carbon Dioxide) 27.0 mmol/L 22-32 Anion Gap 9.0 mmol/L 2-11 67 Glucose 121 mg/dL High 70-100 68 BUN 10 mg/dL 6-24 Creatinine 1.00 mg/dL 0.50-1.40 One Over Creatinine 1.00 BUN/Creatinine Ratio 10.0 8-20 Calcium 9.6 mg/dL 8.1-9.9 eGFR Non- 78.3 > 60 eGFR 94.7 > [address] [facility] 01/19/2010 [facility] TSH 2.13 MIU/ML 0.34- 5.60 Panel [address] [place] [address] [phone] Comp Metabolic 01/19/2010 [facility] Sodium 135 mmol/L 135- 145 Panel [address] [place] [address] [phone] Potassium 5.4 mmol/L High 3.5-5.0 Chloride 100 mmol/L Low 101-111 Co2 (Carbon Dioxide) 28.0 mmol/L 22-32 Anion Gap 7.0 mmol/L 2-11 70 Glucose 107 mg/dL High 70-100 71 BUN 18 mg/dL 6-24 Creatinine 1.00 mg/dL 0.50-1.40 One Over Creatinine 1.00 BUN/Creatinine Ratio 18.0 8-20 Calcium 9.2 mg/dL 8.1-9.9 72 Total Protein 6.7 GM/DL 6.2-8.1 Albumin 3.3 GM/DL 3.2-5.2 Globulin 3.4 GM/DL 2-4 Albumin/Globulin Ratio 1.0 1-3 Bilirubin Total 0.6 mg/dL 0.4-1.5 73 Alkaline Phosphatase 88 U/L 39-117 Alt (SGPT) 54 U/L 17-63 Ast (Sgot) 38 U/L 12-42 eGFR Non- 78.3 > 60 eGFR 94.7 > 60 74 Lipid Profile 01/19/2010 [facility] Triglyceride 139 mg/dL 40 -200 (Trig/Chol/HDL) [address] [place] [address] [phone] Cholesterol 141 mg/dL Less Than 200 75 High Density Lipoprotein 38 mg/dL Low 40-60 76 Cholesterol/HDL Ratio 3.71 AVERAGE 1-4.97 Low Density Lipoprotein 75 mg/dL Less Than 100 77 CBC With 01/19/2010 [facility] White Blood 10.6 CUMM 4.8- 10.8 Electronic Diff [address] [place] [address] [phone] Red Cell Count 3.81 CUMM Low 4.6-6.2 [...] Eosinophils 0.2 0-0.6 Abs Basophils 0.1 0-0.2 78 Laboratory test 12/13/2008 [facility] TSH 1.75 MIU/ML 0.34- 5.[address] [place] [address] [phone] PSA,Diagnostic 0.97 NG/ML 0-4 79 Lipid Profile 12/13/2008 [facility] Triglyceride 95 mg/dL 40- 200 (Trig/Chol/HDL) [address] [place] [address] [phone] Cholesterol 164 mg/dL Less Than 200 80 High Density Lipoprotein 44 mg/dL 40-60 81 Cholesterol/HDL Ratio 3.73 AVERAGE 1-4.97 Low Density Lipoprotein 101 mg/dL High Less Than 100 82 Comp Metabolic Panel 12/13/2008 [facility] Sodium 137 mmol/L 135-[address] [place] [address] [phone] Potassium 5.3 mmol/L High 3.5-5.0 Chloride 103 mmol/L 101-111 Co2 (Carbon Dioxide) 29.0 mmol/L 22-32 Anion Gap 5.0 mmol/L 2-11 83 Glucose 105 mg/dL High 70-100 84 BUN 19 mg/dL 6-24 Creatinine 1.20 mg/dL 0.50-1.40 One Over Creatinine 0.80 BUN/Creatinine Ratio 15.8 8-20 Calcium 9.5 mg/dL 8.1-9.9 85 Total Protein 6.7 GM/DL 6.2-8.1 Albumin 4.0 GM/DL 3.2-5.2 Globulin 2.7 GM/DL 2-4 Albumin/Globulin Ratio 1.5 1-3 Bilirubin Total 0.8 mg/dL 0.4-1.5 86 Alkaline Phosphatase 62 U/L 39-117 Alt (SGPT) 29 U/L 17-63 Ast (Sgot) 31 U/L 12-42 CBC With 12/13/2008 [facility] White Blood 5.6 CUMM 4.8-10.8 Electronic Diff [address] [place] [address] [phone] Red Cell Count 4.21 CUMM Low 4.6-6.2 [...] Abs Basophils 0 0-0.2 Laboratory test finding 02/02/2008 [facility] Alt (SGPT) 22 U/L 17-[address] [place] [address] [phone] Ast (Sgot) 23 U/L 12-42 Lipid Profile 02/02/2008 [facility] Triglyceride 185 mg/dL 40 -200 (Trig/Chol/HDL) [address] [place] [address] [phone] Cholesterol 172 mg/dL Less Than 200 87 High Density Lipoprotein 38 mg/dL Low 40-60 88 Cholesterol/HDL Ratio 4.53 AVERAGE 1-4.97 Low Density Lipoprotein 97 mg/dL Less Than 100 89 1 FASTING 2 FASTING 3 Desirable: <150 Borderline High: 150-199 High: 200-499 Very High: >500 4 Desirable: <200 Borderline High: 200-239 High: >239 5 Low: <40 Desirable: 40-60 High: >60 6 Desirable: <100 Near Optimal: 100-129 Borderline High: 130-159 High: 160-189 Very High: >189 7 Because ethnic data is not always readily [...] 15-29 5 Kidney failure <15 (or dialysis) 8 Acute inflammation: >10.00 9 Because ethnic data is not always [...] 5 Kidney failure <15 (or dialysis) 10 SEE RESULT BELOW Name: JOSE JUAN CHOE : [address]: Rhys Ignacio MD Acct: [id number] Unit: [id number] AGE: 77 Location: WOUND Re10/31/17 SEX: M Status: REG REF SPEC: [id number] LISET: 10/31/1755 [facility] DR: Rhys Ignacio MD REQ: [id number] RECD: 10/31/17 STATUS: PATTY ANTONIO DR: Gm Le MD _ ORDERED: LEVEL 3 FINAL DIAGNOSIS Soft tissue, right leg, debridement: -- Devitalized skeletal muscle with acute myositis. CLINICAL HISTORY Leg abscess PRE-OPERATIVE DIAGNOSIS Right lower leg surgical wound after drainage of abscess and opening of lateral and posterior compartments GROSS DESCRIPTION The specimen is received in formalin labeled, Right Leg, and consists of a 1.5 x 1.3 by up to 0.5 cm aggregate of dusky ap[place]aca irregular rubbery soft tissue fragments which is submitted entirely in one cassette. Signed (signature on file) Humberto Lunsford MD [id number] END OF REPORT DEPARTMENT OF PATHOLOGY, [address] [place] [address] Humberto Lunsford M.D. Director [facility] # [id number] 11 SEE RESULT BELOW Name: JOSE JUAN CHOE : [address]: Rhys Ignacio MD Acct: [id number] Unit: [id number] AGE: 77 Location: WOUND Re10/24/17 SEX: M Status: REG REF SPEC: [id number] LISET: 10/24/17 [facility] DR: Rhys Ignacio MD REQ: [id number] RECD: 10/24/17 STATUS: SUGAR ANTONIO DR: Matthias Welch III, MD _ SOURCE: WOUND SPDESC:RIGHT LEG ORDERED: Tissue Cult/GS Procedure Result Reported Site Tissue Gram Stain Final 10/24/17- 1038 ML 1+ Neutrophils 1+ Nucleated Cells 2+ Epithelial Cells 1+ Gram Positive Cocci 1+ Gram Positive Bacilli 1+ Gram Negative Bacilli Preparation By Cytospin Smear Tissue Culture Final 10/29/17- 0937 ML Organism 1 VRE ENTEROCOCCUS FAECALIS Quantity 1+ Organism 2 NORMAL BATOOL Quantity 1+ 1. VRE ENTEROCOCCUS FAECALIS M.I.C. RX --------- ------ Ampicillin >=32 R Penicillin >=64 R Ciprofloxacin >=8 R Erythromycin >=8 R Gentamicin High Level R Levofloxacin >=8 R Linezolid 2 S * Quinupristin/Dalfopristin R * Streptomycin High Level R CONTINUED ON NEXT PAGE DEPARTMENT OF PATHOLOGY, [address] [place] [address] Humberto Lunsford M.DGladys [facility] # [id number] Patient: JOSE JUAN CHOE [id number] (Continued) Specimen: [id number] Collected: 10/24/17 Received: 10/24/17 (Continued) Procedure Result Reported Site Tissue Culture Final (continued) 10/29/17936 1. VRE ENTEROCOCCUS FAECALIS (continued) M.I.C. RX --------- ------ Tetracycline >=16 R Tigecycline <=0.12 S Vancomycin >=32 R Imipenem-Deduced R * Ampicillin/Sulbactam-Deduced R * These antibiotics are not available in the [facility] Formulary Contact the Microbiology Department for any additional antibiotic reporting. * ML - Main Lab . END OF REPORT DEPARTMENT OF PATHOLOGY, [address] [place] [address] Humberto Lunsford M.D. Director [facility] # [id number] 12 [facility] Severe Sepsis and Septic Shock Management Bundle Measure requires all lactic acids initially measuring >2.0 mmol/L be repeated. 13 Because ethnic data is not always readily [...] 15-29 5 Kidney failure <15 (or dialysis) 14 Result TnIDx:0.08 Called to [id number] at: 18:36:20 by:[id number] Read back by: [id number] 15 SEE RESULT BELOW Name: JOSE JUAN CHOE : [address]: Shyam Gayle MD Acct: [id number] Unit: [id number] AGE: 77 Location: ED Re09/22/17 SEX: M Status: REG ER SPEC: [id number] LISET: 09/22/17-[address]: Shyam Gayle MD REQ: [id number] RECD: 09/22/17 STATUS: RES CONOR DR: Matthias Welch III, MD _ SOURCE: LEG,LEFT SPDESC: ORDERED: Culture Stain Procedure Result Reported Site Wound/Misc Gram Stain Final 09/22/171947 ML 1+ Epithelial Cells 4+ Neutrophils 4+ Nucleated Cells 2+ Gram Positive Cocci Wound/Misc Culture PENDING * ML - MAIN LAB ([facility]) . END OF REPORT * ML=Testing performed at Main Lab DEPARTMENT OF PATHOLOGY, [address] [place] [address] Humberto Lunsford M.D. Director [facility] # [id number] 16 SEE RESULT BELOW Name: JOSE JUAN CHOE : [address]: Eileen Orr DO Acct: [id number] Unit: [id number] AGE: 77 Location: [place] [address] Re09/22/17 SEX: M Status: ADM IN SPEC: [id number] LISET: 09/22/17-1726 [facility] DR: Shyam Gayle MD REQ: [id number] RECD: 09/22/17 STATUS: RES CONOR DR: Matthias Welch III, MD _ SOURCE: LEG,LEFT SPDESC: ORDERED: MRSA/SA SSTI, Culture Stain COMMENTS: Verbal to [id number] by [id number] at 2101 on 09/22/17. Results read back accurately. Procedure Result Reported Site MRSA/S. aureus SSTI PCR Final 09/22/17- 2100 ML Organism 1 MRSA NEGATIVE Organism 2 S.AUREUS POSITIVE Wound/Misc Gram Stain Final 09/22/171947 ML 1+ Epithelial Cells 4+ Neutrophils 4+ Nucleated Cells 2+ Gram Positive Cocci Wound/Misc Culture Preliminary 09/24/17- 1021 ML Organism 1 STAPHYLOCOCCUS AUREUS Quantity 1+ 1. STAPHYLOCOCCUS AUREUS M.I.C. RX --------- ------ Penicillin >=0.5 R Clindamycin <=0.25 S Erythromycin <=0.25 S Gentamicin <=0.5 S Linezolid 2 S Nitrofurantoin <=16 S Oxacillin 0.5 S * Quinupristin/Dalfopristin 0.5 S Rifampin <=0.5 S CONTINUED ON NEXT PAGE DEPARTMENT OF PATHOLOGY, [address] [place] [address] Humberto Lunsford M.D. Director [facility] # [id number] Patient: JOSE JUAN CHOE [id number] (Continued) Specimen: [id number] Collected: 09/22/17 Received: 09/22/17 (Continued) Procedure Result Reported Site Wound/Misc Culture Preliminary (continued) 09/24/17- 1020 1. STAPHYLOCOCCUS AUREUS (continued) M.I.C. RX --------- ------ Tetracycline <=1 S Doxycycline - Deduced S * Minocycline - Deduced S Trimethoprim/Sulfamethoxazole <=10 S Vancomycin 1 S Imipenem-Deduced S * Ampicillin/Sulbactam-Deduced S Cefazolin-Deduced S * These antibiotics are not available in the [facility] Formulary Contact the Microbiology Department for any additional antibiotic reporting. * ML - Main Lab . END OF REPORT DEPARTMENT OF PATHOLOGY, [address] [place] [address] Humberto Lunsford M.D. Director [facility] # [id number] 17 Polish Compounder: [id number] SEE RESULT BELOW Name: JOSE JUAN CHOE : [address]: [facility] Acct: [id number] Unit: [id number] AGE: 77 Location: ED Re09/22/17 SEX: M Status: REG ER SPEC: [id number] LISET: 09/22/17-1406 [facility] DR: Shyam Gayle MD REQ: [id number] RECD: 09/22/171520 STATUS: SUGAR ANTONIO DR: Matthias Welch III, MD _ SOURCE: NASAL SPDESC: ORDERED: Flu A B Request Procedure Result Reported Site Rapid Influenza A B Request Final 09/22/17- 1521 ML Specimen received for Influenza A/B Molecular testing * ML - MAIN LAB ([facility]) . END OF REPORT * ML=Testing performed at Main Lab DEPARTMENT OF PATHOLOGY, [address] [place] [address] Humberto Lunsford M.D. Director [facility] # [id number] 19 standing order 20 Because ethnic data is not always [...] 5 Kidney failure <15 (or dialysis) 21 Please note the change in INR reference range effective 17. 22 Critical Result LACT:2.2 Called to [id number]. at: 17:03:38 by:[id number] Read back by:[id number]. [place] Severe Sepsis and Septic Shock Management Bundle Measure requires all lactic acids initially measuring >2.0 mmol/L be repeated. 23 Because ethnic data is not always readily [...] 15-29 5 Kidney failure <15 (or dialysis) 24 Desirable: <150 Borderline High: 150-199 High: 200-499 Very High: >500 25 Desirable: <200 Borderline High: 200-239 High: >239 26 Low: <40 Desirable: 40-60 High: >60 27 Desirable: <100 Near Optimal: 100-129 Borderline High: 130-159 High: 160-189 Very High: >189 28 Because ethnic data is not [...] 5 Kidney failure <15 (or dialysis) 29 FASTING 10 HOUR 30 Because ethnic data is not always [...] 5 Kidney failure <15 (or dialysis) 31 Desirable <150 Borderline high 150-199 High 200-499 Very High >500 32 Desirable <200 Borderline high 200-239 High >239 33 Low <40 Desirable: 40-60 High: >60 34 Desirable: <100 mg/dL Near Optimal: 100-129 mg/dL Borderline High: 130-159 mg/dL High: 160-189 mg/dL Very High: >189 mg/dL 35 Therapeutic target for the treatment of diabetes Mellitus patients is <7% HBA1C, and in selective patients <6.0%.Please refer to [place] [employer] Diabetic care guidelines for further information. 36 SEE RESULT BELOW Name: JOSE JUAN CHOE : [address]: Jez Damon MD Acct: [id number] Unit: [id number] AGE: 75 Location: [facility] Re02/17/15 SEX: M Status: REG REF SPEC: [id number] LISET: 02/17/15-1127 [facility] DR: Jez Damon MD REQ: [id number] RECD: 02/17/15-140 STATUS: PATTY ANTONIO DR: Matthias Welch III, [...] performed at Main Lab DEPARTMENT OF PATHOLOGY, [address] [place] [address] Humberto Lunsford M.D. Director [facility] # [id number] 37 Potassium reference range changed effective 05/29/14 38 Because ethnic data is not always [...] 5 Kidney failure <15 (or dialysis) 39 PT IS FASTING 40 Because ethnic data is not always readily [...] 15-29 5 Kidney failure <15 (or dialysis) 41 PT IS FASTING 42 Desirable <150 Borderline high 150-199 High 200-499 Very High >500 43 Desirable <200 Borderline high 200-239 High >239 44 Low <40 Desirable: 40-60 High: >60 45 Desirable <100 Near Optimal 100-129 Borderline high 130-159 High 160-189 Very High >189 46 Because ethnic data is not always [...] 5 Kidney failure <15 (or dialysis) 47 FASTING Lab added 48 CBC and smear reviewed. Eosinophilia confirmed. May be allergy, drug or parasite related. REVIEWED BY HUMBERTO LUNSFORD MD 49 Because ethnic data is not always readily [...] 15-29 5 Kidney failure <15 (or dialysis) 50 HDL Interpretation: Undesirable: High Risk: Less than 40 mg/dL Desirable: Low Risk: Greater than 60 mg/dL 51 LDL Interpretation: Low Risk Optimal Level: LDL Less than 100 mg/dL Near or Above Optimal: LDL 100-129 mg/dL Borderline High Risk: LDL 130-159 mg/dL High Risk: LDL 160-189 mg/dL Very High Risk: LDL Greater than 189 mg/dL 52 Anion gap measurement may be of limited value in the presence of any alkalosis, especially in a combined acid base disorder. . 53 Because ethnic data is not always [...] Risk: LDL Greater than 189 MG/DL 57 Anion gap measurement may be of limited value in the presence of any alkalosis, especially in a combined acid base disorder. . 58 A metabolite of Naproxen, O-desmethylnaproxen, has been shown to interfere with the Jendrassik-Aleksey method for measuring total bilirubin. Samples from patients who have taken Naproxen have shown spurious elevation in total bilirubin levels. 59 Because ethnic data is not always readily [...] 15-29 5 Kidney failure <15 (or dialysis) 60 THERAPEUTIC TARGET FOR THE TREATMENT OF DIABETES MELLITUS PATIENTS IS <7% HBA1C, AND IN SELECTIVE PATIENTS <6.0%. PLEASE REFER TO [employer] DIABETIC CARE GUIDELINES FOR FURTHER INFORMATION. 61 H H Check Failed 62 Anion gap measurement may be of limited value in the presence of any alkalosis, especially in a combined acid base disorder. . 63 Because ethnic data is not always readily [...] 15-29 5 Kidney failure <15 (or dialysis) 64 Anion gap measurement may be of limited value in the presence of any alkalosis, especially in a combined acid base disorder. . 65 Because ethnic data is not always readily [...] 15-29 5 Kidney failure <15 (or dialysis) 66 SAME DAY SURGERY 05-14-10 67 Anion gap measurement may be of limited value in the presence of any alkalosis, especially in a combined acid base disorder. . 68 Note change in reference range as of 03/17/08. The change was based on recommendations from the [place] [employer]. 69 Because ethnic data is not always readily [...] 15-29 5 Kidney failure <15 (or dialysis) 70 Anion gap measurement may be of limited value in the presence of any alkalosis, especially in a combined acid base disorder. . 71 Note change in reference range as of 03/17/08. The change was based on recommendations from the [place] [employer]. 72 Please note change in reference range effective 07 . 73 A metabolite of Naproxen, O-desmethylnaproxen, has been shown to interfere with the Jendrassik-Aleksey method for measuring total bilirubin. Samples from patients who have taken Naproxen have shown spurious elevation in total bilirubin levels. 74 Because ethnic data is not always readily [...] 15-29 5 Kidney failure <15 (or dialysis) 75 CHOLESTEROL INTERPRETATION: Desirable: Less than 200 MG/DL Borderline-High Risk: 200-239 MG/DL High-Risk: 240 MG/DL and over 76 HDL INTERPRETATION: Undesirable: High Risk: Less than 40 MG/DL Desirable: Low Risk: Greater than 60 MG/DL 77 LDL INTERPRETATION: Low Risk Optimal Level: LDL Less than 100 MG/DL Near or Above Optimal: LDL 100-129 MG/DL Borderline High Risk: LDL 130-159 MG/DL High Risk: LDL 160-189 MG/DL Very High Risk: LDL Greater than 189 MG/DL 78 Lymphopenia % 79 * SERUM LEVELS OF PSA MEASURED USING THE [employer] ACCESS HYBRITECH IMMUNOASSAY SHOULD NOT BE INTERPRETED ABSOLUTE EVIDENCE OF THE PRESENCE OR ABSENCE OF DISEASE. THE PSA VALUE SHOULD BE USED IN CONJUNCTION WITH OTHER PERTINENT CLINICAL DIAGNOSTIC PROCEDURES. 80 CHOLESTEROL INTERPRETATION: Desirable: Less than 200 MG/DL Borderline-High Risk: 200-239 MG/DL High-Risk: 240 MG/DL and over 81 HDL INTERPRETATION: Undesirable: High Risk: Less than 40 MG/DL Desirable: Low Risk: Greater than 60 MG/DL 82 LDL INTERPRETATION: Low Risk Optimal Level: LDL Less than 100 MG/DL Near or Above Optimal: LDL 100-129 MG/DL Borderline High Risk: LDL 130-159 MG/DL High Risk: LDL 160-189 MG/DL Very High Risk: LDL Greater than 189 MG/DL 83 Anion gap measurement may be of limited value in the presence of any alkalosis, especially in a combined acid base disorder. . 84 Note change in reference range as of 03/17/08. The change was based on recommendations from the [place] [employer]. 85 Please note change in reference range effective 07 . 86 A metabolite of Naproxen, O-desmethylnaproxen, has been shown to interfere with the Jendrassik-Aleksey method for measuring total bilirubin. Samples from patients who have taken Naproxen have shown spurious elevation in total bilirubin levels. 87 CHOLESTEROL INTERPRETATION: Desirable: Less than 200 MG/DL Borderline-High Risk: 200-239 MG/DL High-Risk: 240 MG/DL and over 88 HDL INTERPRETATION: Undesirable: High Risk: Less than 40 MG/DL Desirable: Low Risk: Greater than 60 MG/DL 89 LDL INTERPRETATION: Low Risk Optimal Level: LDL Less than 100 MG/DL Near or Above Optimal: LDL 100-129 MG/DL Borderline High Risk: LDL 130-159 MG/DL High Risk: LDL 160-189 MG/DL Very High Risk: LDL Greater than 189 MG/DL Procedures Date Code Description Status 11/29/2018 [id number] Colonoscopy Completed 06/12/2018 65847 Removal Devitalization Tissue Wound Less Than Equal 20 Completed Square CM 06/05/2018 49470 Removal Devitalization Tissue Wound Less Than Equal 20 Completed Square CM 05/29/2018 75876 Debridement Skin, Subcutaneous Tissue & Muscle Completed 05/08/2018 16715 Debridement Skin,& sq Tissue Completed 04/07/2018 01450 EKG Tracing & Interpretation Completed 03/13/2018 33813 Debridement Skin,& sq Tissue Completed 03/04/2018 40349 Chemical Cautery Granulation Tissue Completed 02/27/2018 63733 Debridement Skin, Subcutaneous Tissue & Muscle Completed 02/20/2018 46006 Chemical Cautery Granulation Tissue Completed 02/13/2018 32903 Debridement Skin, Subcutaneous Tissue & Muscle Completed 02/06/2018 61350 Removal Devitalization Tissue Wound Less Than Equal 20 Completed Square CM 01/30/2018 11632 Removal Devitalization Tissue Wound Less Than Equal 20 Completed Square CM 11/18/2017 87897 ECHO Transthoracic, Real-Time 2D With Doppler And Color Completed Flow 11/18/2017 29691 ECHO Transthoracic, Real-Time 2D With Doppler And Color Completed Flow 11/18/2017 17649 Echocardiogram, Limited Study Completed 11/07/2017 13720 Debridement Skin,& sq Tissue Completed 11/04/2017 45890 EKG Tracing & Interpretation Completed 10/31/2017 61029 Biopsy Skin Lesion Single Completed 10/24/2017 79255 Debridement Skin, Subcutaneous Tissue & Muscle Completed 10/10/2017 69086 Debridement Skin, Subcutaneous Tissue & Muscle Completed 10/03/2017 97179 I&D Leg Or Ankle;Deep Abscess Or Hematoma Completed 09/26/2017 19528 Echocardiography, Transesophageal, Real Time W/Image 2D Completed W/W/O M-M 09/26/2017 14485 Pulse Wave/Continuous-Interp.RPT Completed 09/26/2017 35642 Color Flow Doppler/Interp & Reprt Completed 09/24/2017 56340 ECHO Transthorasic Realtime 2D W Doppler & Color Flow Completed Hosp 08/26/2017 29442 EKG Tracing & Interpretation Completed 08/22/2017 51614 ECHO Transthoracic, Real-Time 2D With Doppler And Color Completed Flow 08/22/2017 25473 ECHO Transthoracic, Real-Time 2D With Doppler And Color Completed Flow 07/18/2017 17335 EKG, Interpretation Only Completed 07/18/2017 30817 EKG, Tracing Only, No Interpretation Completed 07/18/2017 11861 EKG Tracing & Interpretation Completed 03/19/2017 27469 Color Flow Doppler/Interp & Reprt Completed 03/19/2017 71985 Pulse Wave/Continuous-Interp.RPT Completed 03/19/2017 76713 Echocardiography, Transesophageal, Real Time W/Image 2D Completed W/W/O M-M 02/04/2017 89108 ECHO Transthoracic, Real-Time 2D With Doppler And Color Completed Flow 01/06/2017 60716 EKG Tracing & Interpretation Completed 01/24/2016 87750 ECHO Transthoracic, Real-Time 2D With Doppler And Color Completed Flow 12/22/2015 80948 EKG Tracing & Interpretation Completed 02/17/2015 [id number] Colonoscopy Completed 12/14/2014 10501 EKG Tracing & Interpretation Completed 12/12/2014 99746 ECHO Transthoracic, Real-Time 2D With Doppler And Color Completed Flow 03/16/2014 79430 Color Flow Doppler/Interp & Reprt Completed 03/16/2014 16741 Pulse Wave/Continuous-Interp.RPT Completed 03/16/2014 41797 Echocardiography, Transesophageal, Real Time W/Image 2D Completed W/W/O M-M 01/10/2014 89837 EKG Tracing & Interpretation Completed 12/27/2013 51006 ECHO Transthoracic, Real-Time 2D With Doppler And Color Completed Flow 06/22/2013 12327 ECHO Transthoracic, Real-Time 2D With Doppler And Color Completed Flow 01/19/2013 14553 ECHO Transthoracic, Real-Time 2D With Doppler And Color Completed Flow 01/08/2013 72954 EKG Tracing & Interpretation Completed 01/01/2012 13094 EKG Tracing & Interpretation Completed 12/26/2011 19653 ECHO Transthoracic, Real-Time 2D With Doppler And Color Completed Flow 05/24/2011 65137 EKG Tracing & Interpretation Completed 05/16/2011 51219 ECHO Transthoracic, Real-Time 2D With Doppler And Color Completed Flow 12/25/2010 75705 EKG Tracing & Interpretation Completed 06/04/2010 30077 Echocardiogram Completed 06/04/2010 08953 ECHO Transthorasic Realtime 2D W Doppler & Color Flow Completed Hosp 06/01/2010 66157 EKG Tracing & Interpretation Completed 02/01/2010 41469 ECHO Stress Test Incl Perf Contiuous ekg Monitoring Completed W/Phys Superv 01/24/2010 44147 ECHO Transthoracic, Real-Time 2D With Doppler And Color Completed Flow 01/15/2010 32398 EKG Tracing & Interpretation Completed 12/26/2009 64718 EKG Tracing & Interpretation Completed 12/19/2009 09923 ECHO Transthoracic, Real-Time 2D With Doppler And Color Completed Flow 04/19/2009 38339 Color Flow Doppler/Interp & Reprt Completed 04/19/2009 08184 Pulse Wave/Continuous-Interp.RPT Completed 04/19/2009 81788 Echocardiography, Transesophageal, Real Time W/Image 2D Completed W/W/O M-M 03/24/2009 43090 Selective Coronary Angioplasty Completed 03/24/2009 64502 S/I/R Inj Proc Vent And Or Atrial Completed 03/24/2009 06114 Coronary Angiography Completed 03/24/2009 45259 Inj Proc LFT Vent/LFT Atrl Angio Completed 03/24/2009 04911 Com RT And LT Catheterization Completed 03/22/2009 81141 EKG Tracing & Interpretation Completed 01/30/2009 07988 ECHO Transthoracic, Real-Time 2D With Doppler And Color Completed Flow 12/30/2006 80368 Color Doppler Completed 12/30/2006 92186 Pulse Doppler & Continuous Wave Completed 12/30/2006 22176 Pulse Doppler & Continuous Wave Completed 12/30/2006 94769 Echocardiogram Completed 02/15/2005 [id number] Colonoscopy Completed Encounters Type Date Location Provider Dx Diagnosis Office Visit 05/22/2018 [facility] Gwen Nelson, 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 I70.232 [facility] [place] arteries of right leg w ulceration of calf E11.622 Type 2 diabetes mellitus with other skin ulcer M79.A21 Nontraumatic compartment syndrome of right lower extremity I70.211 [facility] [place] arteries of extrm w intrmt kacy, right leg Office Visit 04/28/2018 1:00p [facility] Matthias Douglas3.01 Impaired Medicine - Mateo Welch fasting glucose [place] I48.91 Unspecified atrial fibrillation I70.232 [facility] [place] arteries of right leg w ulceration of calf 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 I70.232 [facility] [place] arteries of right leg w ulceration of calf E11.622 Type 2 diabetes mellitus with other skin ulcer M79.A21 Nontraumatic compartment syndrome of right lower extremity I70.211 [facility] [place] arteries of extrm w intrmt kacy, right leg Office Visit 03/20/2018 8:00a Wound Care Rhys Ignacio 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 Non-prs chronic Center AT [facility] , FACS 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 I70.232 [facility] [place] arteries of right leg w ulceration of calf E11.622 Type 2 diabetes mellitus with other skin ulcer M79.A21 Nontraumatic compartment syndrome of right lower extremity I70.211 [facility] [place] arteries of extrm w intrmt kacy, right leg Office Visit 12/01/2017 3:00p [facility] Rian Tsai Z79.2 detention Infectious Mateo Le (current) use of Diseases antibiotics L97.913 Non-prs chronic ulc unsp prt of r low leg w necros muscle R11.0 Nausea R63.0 Anorexia Office Visit 11/25/2017 [place] Nellie SGladys I42.9 Cardiomyopathy, 11:00a Cardiology Of Lili Nelson unspecified [facility] 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 infarction of muscle, right lower leg Office Visit 11/10/2017 [facility] Gm Tsai Z95.2 Presence of 2:20p For Mamta Le M.D. prosthetic heart Diseases valve M60.061 Infective myositis, right lower leg Z79.2 manager terminal (current) use of antibiotics E11.622 Type 2 diabetes mellitus with other skin ulcer Office Visit 11/04/2017 2:30p [place] [facility] Nellie Hunter Z95.2 Presence of Of Paulette Nelson N.P. 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 Kaveh Zacarias, L03.115 Cellulitis of Assoc,viktoria MATAMOROS right lower limb Hospitalists L02.415 Cutaneous abscess of right lower limb T79.A21A Traumatic compartment syndrome of r low extrem, init R78.81 Bacteremia Office Visit 10/06/2017 9:11a [facility] Rian Tsai L02.415 Cutaneous Infectious Mateo Le abscess of Diseases right lower limb L97.913 Non-prs chronic ulc unsp prt of r low leg w necros muscle I33.0 Acute and subacute infective endocarditis Z95.2 Presence of prosthetic heart valve Office Visit 10/06/2017 10:05a [facility] Kaveh Zacarias, L03.115 Cellulitis of Assoc,viktoria MATAMOROS right lower limb Hospitalists L02.415 Cutaneous abscess of right lower limb T79.A21A Traumatic compartment syndrome of r low extrem, init R78.81 Bacteremia Office Visit 10/05/2017 10:04a [facility] Kaveh Zacarias, L03.115 Cellulitis of Assoc,viktoria MATAMOROS right lower limb Hospitalists L02.415 Cutaneous abscess of right lower limb T79.A21A Traumatic compartment syndrome of r low extrem, init R78.81 Bacteremia Office Visit 10/04/2017 10:03a [facility] Kaveh Zacarias, L03.115 Cellulitis of Assoc,viktoria MATAMOROS right lower limb Hospitalists L02.415 Cutaneous abscess of right lower limb R78.81 Bacteremia R74.8 Abnormal levels of other serum enzymes Office Visit 10/03/2017 10:02a [facility] Kaveh Zacarias, L03.115 Cellulitis of Assoc,viktoria MATAMOROS right lower limb Hospitalists L02.415 Cutaneous abscess of right lower limb R78.81 Bacteremia R74.8 Abnormal levels of other serum enzymes Office Visit 10/02/2017 10:01a [facility] Angeli L03.115 Cellulitis of Assoc,pc DO Salian right lower limb Hospitalists L02.415 Cutaneous abscess of right lower limb R78.81 Bacteremia Office Visit 10/02/2017 [facility] Gm Tsai L97.819 Non-pressure 9:08a For Infectious Mateo Le chronic ulcer oth Diseases prt r low leg w unsp severity L02.415 Cutaneous abscess of right lower limb I33.0 Acute and subacute infective endocarditis B95.61 Methicillin suscep staph infct causing dis classd elswhr Office Visit 10/02/2017 12:45p [place] [facility] Eren Kang L02.415 Cutaneous Of Rubber Off AT [facility] MD Max, abscess of right FACC, FSCAI lower limb B95.61 Methicillin suscep staph infct causing dis classd elswhr I73.9 Peripheral vascular disease, unspecified Office Visit 10/02/2017 7:00a Surgical Rhys Richardson L02.415 Cutaneous [facility] Ignacio MD, abscess of right FACS lower limb Office Visit 10/01/2017 10:00a [facility] Angeli L03.115 Cellulitis of Assoc,pc Senner, DO right lower limb Hospitalists L02.415 Cutaneous abscess of right lower limb R78.81 Bacteremia R74.8 Abnormal levels of other serum enzymes Office Visit 09/30/2017 9:59a [facility] Angeli L03.115 Cellulitis of Assoc,pc Chivoner, DO right lower limb Hospitalists L02.415 Cutaneous abscess of right lower limb R78.81 Bacteremia R74.8 Abnormal levels of other serum enzymes Office Visit 09/29/2017 9:32a [facility] Kaveh Zacarias L03.115 Cellulitis of Assoc,pc right lower limb Hospitalists L02.415 Cutaneous abscess of right lower limb R78.81 Bacteremia R74.8 Abnormal levels of other serum enzymes Office Visit 09/29/2017 11:45a [facility] Gm Tsai L02.415 Cutaneous Infectious Mateo Le abscess of Diseases right lower limb B95.61 Methicillin suscep staph infct causing dis classd elswhr I73.9 Peripheral vascular disease, unspecified R78.81 Bacteremia I33.0 Acute and subacute infective endocarditis Office Visit 09/29/2017 Surgical Florentino Nieto L02.415 Cutaneous 7:00a [facility] LINSEY Sosa abscess of right lower limb Office Visit 09/28/2017 [facility] Angelichristopher Downing, L03.115 Cellulitis of 9:32a Assoc,pc DO right lower Hospitalists limb L02.415 Cutaneous abscess of right lower limb R78.81 Bacteremia Office Visit 09/27/2017 9:31a [facility] Angeli L03.115 Cellulitis of Assoc,pc Chivoner, DO right lower limb Hospitalists L02.415 Cutaneous abscess of right lower limb R78.81 Bacteremia Office Visit 09/26/2017 9:30a [facility] Eileen L03.115 Cellulitis of Assoc,pc Armando Orr. right lower limb Hospitalists L02.415 Cutaneous abscess of right lower limb R78.81 Bacteremia R74.8 Abnormal levels of other serum enzymes [facility] of Assoc,viktoria Orr D.O. right lower limb Hospitalists L02.415 Cutaneous abscess of right lower limb R78.81 Bacteremia R74.8 Abnormal levels of other serum enzymes Office Visit 09/25/2017 [facility] Gm Quin L97.819 Non-pressure 11:17a For Infectious Mateo Le chronic ulcer oth Diseases prt r low leg w unsp severity R78.81 Bacteremia Z95.3 Presence of xenogenic heart valve Office Visit 09/24/2017 7:00a Surgical Rhys Richardson L03.115 Cellulitis of [facility] Ignacio MD, right lower limb FACS [facility]itis of Assoc,viktoria Orr D.O. right lower limb Hospitalists L02.415 Cutaneous abscess of right lower limb R78.81 Bacteremia R74.8 Abnormal levels of other serum enzymes Office Visit 09/23/2017 9:27a [facility] Gerardo L03.115 Cellulitis of Assoc,viktoria Nazario M.D. right lower limb Hospitalists R74.8 Abnormal levels of other serum enzymes J40 Bronchitis, not specified as acute or chronic E87.1 Hypo-osmolality and hyponatremia Office Visit 09/22/2017 [facility] Meño Severino L03.115 Cellulitis of 9:26a Assviktoria sanchez II, M.D. right lower Hospitalists limb R74.8 Abnormal levels of other serum enzymes E87.1 Hypo-osmolality and hyponatremia J40 Bronchitis, not specified as acute or chronic Office Visit 09/11/2017 11:00a [place] [facility] Nellie SGladys I25.10 [facility] Omar N.P. disease of [place] coronary artery w/o ang pctrs I48.0 Paroxysmal atrial fibrillation I73.9 Peripheral vascular disease, unspecified I50.9 Heart failure, unspecified E78.5 Hyperlipidemia, unspecified Office Visit 08/26/2017 3:00p [place] [facility] Brandon Hunter I25.10 [facility] Mateo Willingham disease of [place] coronary artery w/o ang pctrs I48.0 Paroxysmal atrial fibrillation R06.03 Acute respiratory distress I73.9 Peripheral vascular disease, unspecified I50.9 Heart failure, unspecified I27.20 Pulmonary hypertension, unspecified E66.9 Obesity, unspecified E78.5 Hyperlipidemia, unspecified I44.0 Atrioventricular block, first degree Office Visit 08/13/2017 2:20p [facility] Internal Matthias E. I25.10 [facility] heart Medicine - Aleyda Welch. disease of [place] coronary artery w/o ang pctrs I73.9 Peripheral vascular disease, unspecified E78.2 Mixed hyperlipidemia J06.9 Acute upper respiratory infection, unspecified Office Visit 07/20/2017 [facility] Kvng R57.1 Hypovolemic shock 10:36a Assoc,viktoria Kenney N.P. 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 Brandon Hunter Z95.2 Presence of Mateo Willingham prosthetic heart valve R60.9 Edema, unspecified I35.0 Nonrheumatic aortic (valve) stenosis I73.9 Peripheral vascular disease, unspecified E78.2 Mixed hyperlipidemia Office Visit 01/06/2017 [place] Qutaybeh S. I35.0 Nonrheumatic 4:00p Cardiology Mateo Willingham aortic (valve) stenosis R60.9 Edema, unspecified E78.2 Mixed hyperlipidemia I73.9 Peripheral vascular disease, unspecified Office Visit 12/22/2015 10:40a [place] Qutaybeh S. I73.9 Peripheral Cardiology Mateo Willingham vascular disease, unspecified I35.0 Nonrheumatic aortic (valve) stenosis I10 Essential (primary) hypertension E78.2 Mixed hyperlipidemia I25.10 [facility] heart disease of [place] coronary artery w/o ang pctrs R53.83 Other fatigue R06.02 Shortness of breath Office Visit 03/07/2015 9:30a [facility] Carla Smith, 443.9 Peripheral PA Vascular Disease Unspec 424.1 Aortic Valve Disorder 401.1 Hypertension Benign 272.2 Hyperlipidemia Mixed Office Visit 12/14/2014 10:00a [facility] Anntaybchris S. V42.2 Transplant Heart Mateo Willingham Valve 424.1 Aortic Valve Disorder 443.9 Peripheral Vascular Disease Unspec 401.1 Hypertension Benign 272.0 Hypercholesterolemia Pure Office Visit 06/01/2014 2:00p [facility] Internal Matthias Alvares 401.1 Hypertension Benign Claudette Welch M.D. 272.0 Hypercholesterolemia Pure 443.9 Peripheral Vascular Disease Unspec 424.1 Aortic Valve Disorder 790.21 Impaired Fasting Glucose Office Visit 05/19/2014 1:30p [facility] Carla Smith, 401.0 Hypertension PA Malignant 272.2 Hyperlipidemia Mixed 443.9 Peripheral Vascular Disease Unspec 272.0 Hypercholesterolemia Pure 424.1 Aortic Valve Disorder Office Visit 04/14/2014 4:00p [facility] Anntaybchris Hunter 424.1 Aortic Valve Mateo Willingham Disorder 414.01 Coronary Atherosclerosis [place] V42.2 Transplant Heart Valve 401.0 Hypertension Malignant 272.2 Hyperlipidemia Mixed Office Visit 03/16/2014 8:00a [facility] Qutaybchris SGladys 424.1 Aortic Valve Mateo Willingham Disorder Office Visit 01/10/2014 10:00a [facility] Brandon Hunter 424.1 Aortic Valve Mateo Willingham Disorder 401.1 Hypertension Benign 414.01 Coronary Atherosclerosis [place] V42.2 Transplant Heart Valve 443.9 Peripheral Vascular Disease Unspec Office Visit 01/08/2013 3:20p [facility] Qutaybeh S. V42.2 Transplant Heart Mateo Willingham Valve 272.0 Hypercholesterolemia Pure 414.01 Coronary Atherosclerosis [place] 424.1 Aortic Valve Disorder Office Visit 04/23/2012 1:20p [facility] Internal Matthias Alvares 782.1 Rash & Other Medicine Mateo Welch Nonspec Skin Eruption Office Visit 02/18/2012 10:30a [facility] Jessa 401.1 Hypertension AT [facility] Benign [facility] Office Visit 01/16/2012 10:30a [facility] Jessa 401.1 Hypertension AT [facility], Benign N.P. Office Visit 01/01/2012 3:20p [facility] Qutaybeh S. 401.1 Hypertension AT [facility] Umer Willingham M.D. 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 401.1 Hypertension 9:00a Cardiology Mateo Willingham Benign 424.1 Aortic Valve Disorder 272.0 Hypercholesterolemia Pure 414.01 Coronary Atherosclerosis [place] Office Visit 05/02/2010 9:40a DO Not Use Rubber Off Matthias Alvares 552.1 Hernia Umbilical AT Albino Welch M.D. W/ Obstruction 401.1 Hypertension Benign 424.1 Aortic Valve Disorder 272.0 Hypercholesterolemia Pure Office Visit 02/01/2010 11:20a DO Not Use Rubber Off AT Matthias Alvares 424.1 Aortic Valve Albino Welch M.D. Disorder 401.1 Hypertension Benign 272.0 Hypercholesterolemia Pure 790.21 Impaired Fasting Glucose Office Visit 01/15/2010 3:40p [facility] Qutaybeh S. 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 424.1 Aortic Valve Mateo Willingham Disorder 786.05 Shortness Of Breath 414.01 Coronary Atherosclerosis [place] Office Visit 04/19/2009 [place] Qutaybeh S. 414.01 Coronary 7:00a Cardiology Mateo Willingham Atherosclerosis [place] 424.1 Aortic Valve Disorder 401.1 Hypertension Benign Office Visit 03/30/2009 10:40a [facility] Qutaybeh S. 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 424.1 Aortic Valve Mateo Willingham Disorder 414.01 Coronary Atherosclerosis [place] 401.1 Hypertension Benign 272.4 Hyperlipidemia Other Unspec Office Visit 03/22/2009 10:20a [facility] Qutaybeh S. 746.3 Stenosis Aortic Mateo Willingham Valve Congenital 401.1 Hypertension Benign 272.0 Hypercholesterolemia Pure 424.0 Mitral Valve Disorder 785.2 Murmur Cardiac Undiagnosed Office Visit 02/14/2009 [place] [facility] Matthias E. 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 424.2 Tricuspid Valve Assoc AT Mateo Welch Disorder Spec as [facility] Nonrheumatic 424.0 Mitral Valve Disorder 433.10 Occlusion & Stenosis Carotid Artery W/O Cerebral Infarction 459.81 Venous Insufficiency (Peripheral) Unspec Office Visit 12/31/2007 3:00p [place] [facility] Matthias E. 715.00 Osteoarthrosis Assoc AT Mateo Welch Generalized Site [facility] Unspec 272.0 Hypercholesterolemia Pure 401.1 Hypertension Benign V03.82 Streptococcus Pneumoniae Vaccination Spec Other Plan of Treatment Future Appointment(s):12/22/2018 9:00 am - Matthias Welch M.D. at [facility] Internal Eriwwuxn48/06/2019 11:00 am - Nellie Nelson N.P. at [facility]01/04/2019 11:00 am - [place] ECHO Schedule at [facility]2018 1:00 pm - Matthias Welch M.D. at [facility] Internal Bpydctrx90/16/2019 - Matthias Welch M.D.I50.33 Acute on chronic diastolic (congestive) heart failure
[2018-12-10 18:11] LABS: ABS Basophils 0.1 10^3/ul (0-0.2); ABS Eosinophils 0.1 10^3/ul (0-0.6); ABS Lymphocytes 1.3 10^3/ul (1.0-4.8); ABS Monocytes 0.6 10^3/ul (0-0.8); ABS Neutrophils 4.9 10^3/ul (1.5-7.7); Eosinophil % 1.2 %; Hematocrit 27 % (42-52); Hemoglobin 8.6 g/dL (14.0-18.0); Lymphocyte % 18.6 %; Mean Corpuscular HGB Conc 32 g/dL (31-36); Mean Corpuscular Hemoglobin 28 pg (27-31); Mean Corpuscular Volume 86 fL (80-94); Mean Platelet Volume 7.2 fL (7.4-10.4); Platelet Count 371 10^3/uL (150-450); Red Blood Count 3.11 10^6 /uL (4.18-5.48); Red Cell Distribution Width 19 % (10.5-15)
[2018-12-10] MEDS ORDERED: Furosemide IV* 10 MG/ML VIAL (40 MG) IV SLOW PU ONE (18:12)
[2018-12-10 18:28] LABS: ALT 131 U/L (7-52); AST 45 U/L (13-39); Albumin 3.5 g/dL (3.2-5.2); Albumin/Globulin Ratio 1.2 (1-3); Alkaline Phosphatase 121 U/L (34-104); Anion Gap 9 mmol/L (2-11); Blood Urea Nitrogen 33 mg/dL (6-24); C Reactive Protein 33.74 mg/L (<8.01); CO2 Carbon Dioxide 23 mmol/L (22-32); Chloride 104 mmol/L (101-111); EGFR African American 54.6 (>60); EGFR Non-African American 45.1 (>60); Glucose 105 mg/dL (70-100); Potassium 4.5 mmol/L (3.5-5.0); Sodium 136 mmol/L (135-145); Total Protein 6.5 g/dL (6.4-8.9)
[2018-12-10 18:33] LABS: Troponin I 0.05 ng/mL (<0.04)
[2018-12-10] MEDS ORDERED: Iodixanol* (CONTRAST) 320 MG/ML 100 ML SDV IV ONE (18:49)
--- NOTE | 2018-12-10 18:58 | ED ---
Shortness of Breath - HPI Summary HPI Summary: Patient is a 78 year old male with hx of PAD, CHF who presents to ED with worsening shortness of breath and b/l peripheral edema x 1.5 weeks. He states he was seen in a [place] hospital 1 week ago for internal bleeding where they stopped a blood thinner and his Lasix during his hospitalization. He since developed constant SOB and significant peripheral edema. Denies chest pain, CASTRO, dizziness, abdominal pain, NVD, bloody stools, and decreased sensation in lower extremities. - History of Current Complaint Chief Complaint: EDShortnessOfBreath Time Seen by Provider: 12/10/18 17:38 Hx Obtained From: Patient Onset/Duration: Gradual Onset Dyspnea At: Exertion - Allergy/Home Medications Allergies/Adverse Reactions: Allergies Allergy/AdvReac Type Severity Reaction Status Date / Time bee venom protein (honey bee) Allergy Anaphylatic Verified 12/10/18 16:24 Shock Home Medications: Home Medications Amiodarone TAB* [Cordarone TAB*] 200 mg PO DAILY 12/10/18 [History Confirmed ] Furosemide TAB* [Lasix TAB*] 20 mg PO DAILY 12/10/18 [History Confirmed 12/10/18 ] Metoprolol Succinate XL TAB* [Toprol XL TAB*] 50 mg PO DAILY 12/10/18 [History Confirmed 12/10/18] Rivaroxaban TAB(*) [Xarelto 20 mg] 20 mg PO DAILY 12/10/18 [History Confirmed ] PMH/Surg Hx/FS Hx/Imm Hx Endocrine/Hematology History: Reports: Hx Anticoagulant Therapy Denies: Hx Diabetes Cardiovascular History: Reports: Hx Congestive Heart Failure, Hx Hypercholesterolemia, Hx Hypertension, Hx Myocardial Infarction, Other Cardiovascular Problems/Disorders - aortic v. replacement Denies: Hx Pacemaker/ICD GI History: Denies: Hx Cirrhosis History: Denies: Hx Renal Disease Musculoskeletal History: Reports: Other Musculoskeletal History - osteo- arthritis Sensory History: Reports: Hx Contacts or Glasses, Hx Eye Prosthesis - left Denies: Hx Hearing Aid Opthamlomology History: Reports: Hx Contacts or Glasses, Hx Eye Prosthesis - left Psychiatric History: Denies: Hx Panic Disorder - Cancer History Cancer Type, Location and Year: BLADDER [place] Hx Chemotherapy: No Hx Radiation Therapy: No - Surgical History Surgery Procedure, Year, and Place: ARTIFICIAL HEART VALVE - [place]. APPENDECTOMY. BILAT INGUINAL HERNIA REPAIRS. LEFT FEMORAL ENDARTERECTOMY W/ VASCULAR XENOSURE PATCH ( NO METAL) and iliac stent-(GORE -VBX STENT - CONDITIONAL FOR MRI) 05/2017 ( [facility]). CARDIAC STENTS. ARTIFICIAL EYE - Lt. PICC-Rt ARM Infectious Disease History: No Infectious Disease History: Denies: Traveled Outside the [place] in Last 30 Days - Family History Known Family History: Positive: Cardiac Disease - Mother: [place] - Social History Alcohol Use: Rare Substance Use Type: Reports: None Smoking Status (MU): Former Smoker Review of Systems Negative: Fever Negative: Chest Pain Positive: Shortness Of Breath. Negative: Cough Positive: Edema All Other Systems Reviewed And Are Negative: Yes Physical Exam Triage Information Reviewed: Yes Vital Signs On Initial Exam: Initial Vitals Temp Pulse Resp BP Pulse Ox 97.9 F 50 24 132/53 98 12/10/18 16:20 12/10/18 16:20 12/10/18 16:20 12/10/18 16:20 12/10/18 16:20 Vital Signs Reviewed: Yes Appearance: Positive: Well-Appearing Skin: Positive: Warm, Dry Head/Face: Positive: Normal Head/Face Inspection Eyes: Positive: Normal, Conjunctiva Clear ENT: Positive: Pharynx normal Respiratory/Lung Sounds: Positive: Breath Sounds Present, Rales Cardiovascular: Positive: Normal, RRR Abdomen Description: Positive: Nontender, Soft Bowel Sounds: Positive: Present Musculoskeletal: Positive: Edema Left, Edema Right, Other - tenderness right calf, good pulses Neurological: Positive: Normal Psychiatric: Positive: Normal Diagnostics - Vital Signs Vital Signs Temp Pulse Resp BP Pulse Ox 12/10/18 16:20 97.9 F 50 24 132/53 98 - Laboratory Lab Results: Lab Results 12/10/18 12/10/18 12/10/18 Range/Units 18:05 18:05 18:05 WBC 7.0 (3.5-10.8) 10^3/uL RBC 3.11 L (4.18-5.48) 10^6 /uL Hgb 8.6 L (14.0-18.0) g/dL Hct 27 L (42-52) % MCV 86 (80-94) fL MCH 28 (27-31) pg MCHC 32 (31-36) g/dL RDW 19 H (10.5-15) % Plt Count 371 (150-450) 10^3/uL MPV 7.2 L (7.4-10.4) fL Neut % (Auto) 70.0 % Lymph % (Auto) 18.6 % Arthur % (Auto) 9.1 % Eos % (Auto) 1.2 % Baso % (Auto) 1.1 % Absolute Neuts (auto) 4.9 (1.5-7.7) 10^3/ul Absolute Lymphs (auto) 1.3 (1.0-4.8) 10^3/ul Absolute Monos (auto) 0.6 (0-0.8) 10^3/ul Absolute Eos (auto) 0.1 (0-0.6) 10^3/ul Absolute Basos (auto) 0.1 (0-0.2) 10^3/ul Absolute Nucleated RBC 0.0 10^3/ul Nucleated RBC % 0.0 D-Dimer, Quantitative 260 H (Less Than 230) ng/mL Sodium 136 (135-145) mmol/L Potassium 4.5 (3.5-5.0) mmol/L Chloride 104 (101-111) mmol/L Carbon Dioxide 23 (22-32) mmol/L Anion Gap 9 (2-11) mmol/L BUN 33 H (6-24) mg/dL Creatinine 1.50 H (0.67-1.17) mg/dL Est GFR ( Amer) 54.6 (>60) Est GFR (Non-Af Amer) 45.1 (>60) BUN/Creatinine Ratio 22.0 H (8-20) Glucose 105 H (70-100) mg/dL Lactic Acid (0.5-2.0) mmol/L Calcium 9.0 (8.6-10.3) mg/dL Total Bilirubin 0.80 (0.2-1.0) mg/dL AST 45 H (13-39) U/L ALT 131 H (7-52) U/L Alkaline Phosphatase 121 H (34-104) U/L Troponin I 0.05 H* (<0.04) ng/mL C-Reactive Protein 33.74 H (<8.01) mg/L B-Natriuretic Peptide (<=100) pg/mL Total Protein 6.5 (6.4-8.9) g/dL Albumin 3.5 (3.2-5.2) g/dL Globulin 3.0 (2-4) g/dL Albumin/Globulin Ratio 1.2 (1-3) 12/10/18 12/10/18 Range/Units 18:05 18:05 WBC (3.5-10.8) 10^3/uL RBC (4.18-5.48) 10^6 /uL Hgb (14.0-18.0) g/dL Hct (42-52) % MCV (80-94) fL MCH (27-31) pg MCHC (31-36) g/dL RDW (10.5-15) % Plt Count (150-450) 10^3/uL MPV (7.4-10.4) fL Neut % (Auto) % Lymph % (Auto) % Arthur % (Auto) % Eos % (Auto) % Baso % (Auto) % Absolute Neuts (auto) (1.5-7.7) 10^3/ul Absolute Lymphs (auto) (1.0-4.8) 10^3/ul Absolute Monos (auto) (0-0.8) 10^3/ul Absolute Eos (auto) (0-0.6) 10^3/ul Absolute Basos (auto) (0-0.2) 10^3/ul Absolute Nucleated RBC 10^3/ul Nucleated RBC % D-Dimer, Quantitative (Less Than 230) ng/mL Sodium (135-145) mmol/L Potassium (3.5-5.0) mmol/L Chloride (101-111) mmol/L Carbon Dioxide (22-32) mmol/L Anion Gap (2-11) mmol/L BUN (6-24) mg/dL Creatinine (0.67-1.17) mg/dL Est GFR ( Amer) (>60) Est GFR (Non-Af Amer) (>60) BUN/Creatinine Ratio (8-20) Glucose (70-100) mg/dL Lactic Acid 3.0 H* (0.5-2.0) mmol/L Calcium (8.6-10.3) mg/dL Total Bilirubin (0.2-1.0) mg/dL AST (13-39) U/L ALT (7-52) U/L Alkaline Phosphatase (34-104) U/L Troponin I (<0.04) ng/mL C-Reactive Protein (<8.01) mg/L B-Natriuretic Peptide > 1300 H (<=100) pg/mL Total Protein (6.4-8.9) g/dL Albumin (3.2-5.2) g/dL Globulin (2-4) g/dL Albumin/Globulin Ratio (1-3) Result Diagrams: 12/10/18 18:05 12/10/18 18:05 Lab Statement: Any lab studies that have been ordered have been reviewed, and results considered in the medical decision making process. - CT cta CT Interpretation Completed By: Radiologist Summary of CT Findings: IMPRESSION: 1. No pulmonary emboli. Findings which in the proper clinical setting can be. seen in pulmonary hypertension. 2. Right greater then left pleural effusions and associated lower lobe volume. loss. 3. Subtle right upper lobe findings of subsegmental atelectasis, atypical. pneumonia, or inhalational damage. - Ultrasound No standard instances Ultrasound Interpretation Completed By: Radiologist Summary of Ultrasound Findings: IMPRESSION: No acute findings. No evidence of deep vein thrombosis. - EKG No standard instances Cardiac Rate: Bradycardia EKG Rhythm: Sinus Bradycardia Summary of EKG Findings: sinus bradycadia, t wave changes in V3-V5 Re-Evaluation - Re-Evaluation First Eval Re-Evaluation Time: 20:45 Comment: improved Course/Dx - Course Course Of Treatment: 78-year-old male presents with increasing shortness breath for the past week. He states he was admitted to a hospital last week and they stopped his Lasix for couple days as he was having bleeding. He states that he fly back and started becoming sob. He does pain into his right calf. He denies any chest pain or fever. No cough. He has no history of asthma or COPD. On exam 3+ pitting edema noted of bilateral lower extremities. Has some rales on exam. White blood count normal. BNP greater than 1,000. A troponin is 0.05 which is consistent with previous results. EKG shows nonspecific T- wave changes. D-dimer is elevated so will get a CTA. CTA shows pulmonary HTN. after lasix patient feeling better but still sob. discussed with dr gibson who agrees to admit. - Diagnoses Differential Diagnosis/HQI/PQRI: Positive: CHF, Pulmonary Embolism Provider Diagnoses: CHF (congestive heart failure), Shortness of breath Discharge - Sign-Out/Discharge Documenting (check all that apply): Patient Departure - Discharge Plan Condition: Stable Disposition: ADMITTED TO [facility] Referrals: Matthias Welch MD [Primary Care Provider] - - Billing Disposition and Condition Condition: STABLE Disposition: Admitted to [facility]
[2018-12-10] MEDS ORDERED: Acetaminophen TAB* 325 MG PO PRN (23:02)
[2018-12-11 00:02] LABS: Troponin I 0.05 ng/mL (<0.04)
--- NOTE | 2018-12-11 01:47 | HP ---
CC: Dr. Welch; Dr. Willingham * HISTORY AND PHYSICAL: DATE OF ADMISSION: 12/10/18 PROVIDER: Brenda Dumont NP. PRIMARY CARE PROVIDER: Dr. Welch. ATTENDING PHYSICIAN WHILE IN THE HOSPITAL: Dr. Berna Dailey * (dictated by Brenda Dumont NP). CHIEF COMPLAINT: Shortness of breath. HISTORY OF PRESENT ILLNESS: Mr. Castellon is a 78-year-old male with a past medical history significant for CHF, recent GI bleed at the beginning of November 2018, hypertension, hyperlipidemia, coronary artery disease, history of kidney stones, and history of bladder cancer, 10 years in remission, who presented to the emergency room from Dr. Welch's office with progressively worsening shortness of breath x1 week. The patient reports that he was recently in [place] and flew home last evening. He reports that while he was in [place], he was hospitalized with a GI bleed and also found to have an acute kidney injury. He was anemic and did receive 3 units of blood while hospitalized in [place]. He had a colonoscopy and upper endoscopy which did not find any source of bleeding. During that hospitalization, he also had a non -STEMI with elevated cardiac enzymes and an abnormal EKG and a mild CHF exacerbation. The patient reports that he has had increased lower extremity swelling and has been sleeping propped up on more pillows. He does report exertional shortness of breath and also reports that he has had a 20- to 25- pound weight gain in the past week. Due to his shortness of breath and congestive heart failure, we were asked to see and evaluate him for admission. While in the emergency room, the patient had routine lab work drawn. He was found to have an elevated BNP of greater than 1300 and an elevated troponin of 0.05, elevated liver functions as well as an elevated BUN and creatinine. Due to these findings, the patient will be admitted under observation for congestive heart failure. PAST MEDICAL HISTORY: 1. History of diastolic congestive heart failure. 2. Recent history of GI bleed. 3. Hypertension. 4. Hyperlipidemia. 5. Coronary artery disease. 6. History of kidney stones. 7. History of bladder cancer. PAST SURGICAL HISTORY: 1. Cardiac catheterization with vascular stent placement. 2. Appendectomy. 3. Hernia. 4. Bladder tumor removal. MEDICATIONS: Home medications include: 1. Pantoprazole 40 mg p.o. daily. 2. Vitamin D 1000 units p.o. daily. 3. Xarelto 20 mg p.o. daily. 4. Lisinopril 2.5 mg p.o. daily. 5. Amiodarone 200 mg p.o. daily. 6. Metoprolol 50 mg p.o. daily. 7. Furosemide 20 mg p.o. daily. 8. Atorvastatin 40 mg p.o. daily. ALLERGIES: Bee venom. No known drug allergies. FAMILY HISTORY: Mother with a history of an MA. Brothers and mother with diabetes. Sister had melanoma. SOCIAL HISTORY: The patient reports he quit smoking in 1981. Prior to that, he smoked a pack a day for approximately 20 years. He does report occasional alcohol use. No illicit drug use. He is . His surrogate decision maker in the event he is unable to make his own decision is his . He is a full code. REVIEW OF SYSTEMS: The patient denies any fever. He does report a 25-pound weight gain. He does report chest pain. Does report edema to the lower extremities. Denies any cough or hemoptysis. He does report exertional shortness of breath. No nausea, vomiting, diarrhea, or abdominal pain. Denies any hematuria, dysuria, focal weakness, sensory loss, visual complaints, dysphagia, arthralgias, myalgias, rashes, lesions, or open sores. Denies any psychosis or anxiety. PHYSICAL EXAMINATION GENERAL: At this time, Mr. Castellon is a 78-year-old male. He is alert and oriented, resting on the stretcher in the emergency room. He does not appear to be in any acute distress. VITAL SIGNS: Blood pressure 130/68, heart rate is 51, respirations are 21, O2 saturation 99% on room air, temperature is 97.0. HEENT: Head is atraumatic, normocephalic. Eyes: EOMs are intact. Sclerae anicteric and not pale. Oral mucosa appeared to be moist. NECK: Supple. He does have positive JVD. LUNGS: Diminished with crackles in the bases. CARDIAC: S1, S2. No rubs or gallops. ABDOMEN: Soft and nontender. Bowel sounds are present x4. EXTREMITIES: He does have 3+ pitting edema to bilateral lower extremities. Pedal pulses are +1 bilaterally. There is no clubbing or cyanosis. NEUROLOGIC: He is awake, alert, and oriented x3. Speech is clear. Thought process is intact. There are no gross focal deficits. Cranial nerves II through XII are grossly intact. SKIN: Intact. LABORATORY DATA AND DIAGNOSTIC STUDIES: WBCs are 7.0, RBCs 3.11, hemoglobin 8.6, hematocrit is 27, platelet count is 371. D-dimer is 260. Sodium 136, potassium 4.5, chloride 104. Carbon dioxide is 23. Anion gap of 9. BUN is 33 , creatinine is 1.50. Glucose is 105. Lactic acid 3.0. Calcium 9.0. T-bili is 0.80. ASTs are 45, ALTs 131. Alkaline phosphatase is 121. Troponin 0.05. C-reactive protein was 33.74. BNP was greater than 1300. The patient had an electrocardiogram which showed sinus bradycardia at a rate of 50. He does have T-wave inversion in leads 2, V3, 4, and 5. He had a venous Doppler, radiologist's impression: No acute finding, no evidence of deep vein thrombosis. He had a CTA of the chest, radiologist's impression: No pulmonary emboli, right greater than left pleural effusions associated with lower lobe lung volume loss, right upper lobe finding of subsegmental atelectasis, atypical pneumonia or inhalation damage. Echocardiogram: He had an echocardiogram on 11/27/18 in [place]. Left ventricle was normal size. Ejection fraction was 60% to 65%. Left ventricular wall motion was normal. There was mild concentric left ventricular hypertrophy. There was a variety of Doppler measurements that indicate a restrictive left ventricular relaxation associated with grade 3 to 4 moderate diastolic dysfunction. The left atrium was severely dilated. There was some mild mitral regurgitation. Prosthetic aortic valve was well seated. There was trace aortic regurgitation. There was [id number] tricuspid regurgitation. Right ventricular systolic pressure was elevated and there was no pleural effusion. ASSESSMENT AND PLAN: Mr. Castellon is a 78-year-old male with a past medical history significant for diastolic congestive heart failure, history of gastrointestinal bleed, hypertension, hyperlipidemia, coronary artery disease, status post stenting, bladder cancer, and history of kidney stones, who presented to the emergency room with chest pain and shortness of breath. The patient will be admitted under observation for: 1. Shortness of breath. I suspect that the shortness of breath is related to diastolic heart failure. The patient has had a 20- to 25-pound weight gain in 1 week. He recently traveled home from [place] and arrived last evening. The patient had his medications stopped while in [place] as he did have a gastrointestinal bleeding. The patient did receive Lasix 40 mg in the emergency room. He does report that he has urinated 2 urinals full of urine since the Lasix. He does have 3+ pitting edema to the lower extremity and positive JVD. His lung sounds do have crackles in the bases bilaterally and he is markedly short of breath with exertion. The patient also reports that he has had to sleep propped up on pillows due to his increased shortness of breath. We will continue with Lasix 40 mg IV, strict I and O's, daily weights. 2. Coronary artery disease. He will continue on metoprolol and amiodarone as previously prescribed. 3. Hypertension. I am going to hold his lisinopril at this time as the patient does have an acute kidney injury. 4. Acute kidney injury. I suspect this is related to fluid overload and vascular congestion. I will give him diuresis and can repeat a BMP in the a.m. Continue to monitor his renal function. 5. History of atrial fibrillation, chronic, currently in sinus rhythm. Xarelto 20 mg p.o. daily will be continued. 6. Elevated liver function. I suspect this is related to vascular congestion. We will repeat his liver functions in the a.m. 7. Elevated lactic acid. Again, I think this is related to hypoperfusion from fluid overload as he does not show any signs of sepsis, he is afebrile and has no source of infection. 8. FEN: He can have a heart healthy, caffeine okay diet. 9. Code status: He is a full code. 10. DVT prophylaxis: He will continue his Xarelto. 11. Disposition: The patient will be placed on observation on on telemetry. TIME SPENT: Time spent on this admission was 60 minutes, greater than half that time was spent at the bedside reviewing events leading thus far to his hospitalization, performing my physical exam, and reviewing my plan of care. I have discussed this with my attending Dr. Berna Dailey, and she is in agreement with my plan. BRENDA DUMONT, TALENT ANALYST [id number]/[facility] #: [id number] [place]
[2018-12-11 03:07] LABS: Troponin I 0.04 ng/mL (<0.04)
[2018-12-11 05:51] LABS: ABS Basophils 0.1 10^3/ul (0-0.2); ABS Eosinophils 0.1 10^3/ul (0-0.6); ABS Lymphocytes 1.1 10^3/ul (1.0-4.8); ABS Monocytes 0.5 10^3/ul (0-0.8); ABS Neutrophils 4.3 10^3/ul (1.5-7.7); Eosinophil % 1.9 %; Hematocrit 26 % (42-52); Hemoglobin 8.3 g/dL (14.0-18.0); Lymphocyte % 17.8 %; Mean Corpuscular HGB Conc 32 g/dL (31-36); Mean Corpuscular Hemoglobin 27 pg (27-31); Mean Corpuscular Volume 84 fL (80-94); Mean Platelet Volume 6.9 fL (7.4-10.4); Platelet Count 356 10^3/uL (150-450); Red Blood Count 3.08 10^6 /uL (4.18-5.48); Red Cell Distribution Width 19 % (10.5-15); White Blood Count 6.2 10^3/uL (3.5-10.8)
[2018-12-11 06:14] LABS: Albumin 3.2 g/dL (3.2-5.2); Albumin/Globulin Ratio 1.1 (1-3); BUN/Creatinine Ratio 21.9 (8-20); Calcium 8.7 mg/dL (8.6-10.3); EGFR African American 56.4 (>60); EGFR Non-African American 46.6 (>60); Globulin 2.9 g/dL (2-4); HDL Cholesterol 28.1 mg/dL; Indirect Bilirubin 0.6 mg/dL (0.3-1.0); Potassium 4.3 mmol/L (3.5-5.0); Total Bilirubin 0.9 mg/dL (0.2-1.0); Total Protein 6.1 g/dL (6.4-8.9)
[2018-12-11] MEDS ORDERED: Lisinopril TAB* 5 MG PO SCH (09:00)
[2018-12-11] MEDS: Furosemide IV* 10 MG/ML VIAL (40 MG) IV SCH (10:12)
[2018-12-11] MEDS: Pantoprazole TAB * 40 MG TAB PO SCH (10:13)
[2018-12-11] MEDS: Metoprolol Succinate XL TAB* 50 MG PO SCH (10:13)
[2018-12-11] MEDS: Amiodarone TAB* 200 MG PO SCH (10:13)
[2018-12-11] MEDS: Cholecalciferol TAB* 1000 UNITS PO SCH (10:13)
[2018-12-11] MEDS: Rivaroxaban TAB(*) 20 MG TAB PO SCH (10:13)
[2018-12-11] MEDS ORDERED: Furosemide IV* 10 MG/ML VIAL (40 MG) IV ONE (15:13)
--- NOTE | 2018-12-11 15:57 | PN ---
Subjective Date of Service: 12/11/18 Interval History: Admitted last night. Pt report significant UOP, although none recorded at this time. Down 5 lbs. SOB has improved, as well. Received 40IV furosemide this AM - will give another dose now. Objective Active Medications: Acetaminophen (Tylenol Tab*) 650 mg PO Q4H PRN PRN Reason: FEVER/PAIN Amiodarone HCl (Cordarone Tab*) 200 mg PO DAILY [facility] Last Admin: 12/11/18 10:13 Dose: 200 mg Atorvastatin Calcium (Lipitor*) 40 mg PO QPM [facility] Cholecalciferol (Vitamin D Tab*) 1,000 units PO DAILY [facility] Last Admin: 12/11/18 10:13 Dose: 1,000 units Furosemide (Lasix Iv*) 40 mg IV DAILY [facility] Last Admin: 12/11/18 10:12 Dose: 40 mg Metoprolol Succinate (Toprol Xl Tab*) 50 mg PO DAILY [facility] Last Admin: 12/11/18 10:13 Dose: 50 mg Pantoprazole Sodium (Protonix Tab*) 40 mg PO DAILY [facility] Last Admin: 12/11/18 10:13 Dose: 40 mg Rivaroxaban (Xarelto(*)) 20 mg PO DAILY [facility] Last Admin: 12/11/18 10:13 Dose: 20 mg Vital Signs - 8 hr 12/11/18 12/11/18 12/11/18 07:53 08:00 12:03 Temperature 97.2 F 97.3 F Pulse Rate 52 52 Respiratory 18 18 18 Rate Blood Pressure 138/51 111/42 (mmHg) O2 Sat by Pulse 98 98 Oximetry Oxygen Devices in Use Now: None Appearance: well appearing, NAD, alert and interactive, pleasant Eyes: - - 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 Ears/Nose/Mouth/Throat: Clear Oropharnyx, Mucous Membranes Moist, - Respiratory: - - crackles at bases Cardiovascular: RRR, - - systolic murmur Extremities: - - 3+ pitting edema to knees Neurological: Alert and Oriented x 3, NL Sensation, NL Muscle Strength and Tone Result Diagrams: 12/11/18 05:29 12/11/18 05:29 Additional Lab and Data: Lab Results 12/10/18 12/10/18 12/10/18 Range/Units 18:05 18:05 18:05 WBC 7.0 (3.5-10.8) 10^3/uL RBC 3.11 L (4.18-5.48) 10^6 /uL Hgb 8.6 L (14.0-18.0) g/dL Hct 27 L (42-52) % MCV 86 (80-94) fL MCH 28 (27-31) pg MCHC 32 (31-36) g/dL RDW 19 H (10.5-15) % Plt Count 371 (150-450) 10^3/uL MPV 7.2 L (7.4-10.4) fL Neut % (Auto) 70.0 % Lymph % (Auto) 18.6 % [place] % (Auto) 9.1 % Eos % (Auto) 1.2 % Baso % (Auto) 1.1 % Absolute Neuts (auto) 4.9 (1.5-7.7) 10^3/ul Absolute Lymphs (auto) 1.3 (1.0-4.8) 10^3/ul Absolute Monos (auto) 0.6 (0-0.8) 10^3/ul Absolute Eos (auto) 0.1 (0-0.6) 10^3/ul Absolute Basos (auto) 0.1 (0-0.2) 10^3/ul Absolute Nucleated RBC 0.0 10^3/ul Nucleated RBC % 0.0 D-Dimer, Quantitative 260 H (Less Than 230) ng/mL Sodium 136 (135-145) mmol/L Potassium 4.5 (3.5-5.0) mmol/L Chloride 104 (101-111) mmol/L Carbon Dioxide 23 (22-32) mmol/L Anion Gap 9 (2-11) mmol/L BUN 33 H (6-24) mg/dL Creatinine 1.50 H (0.67-1.17) mg/dL Est GFR ( Amer) 54.6 (>60) Est GFR (Non-Af Amer) 45.1 (>60) BUN/Creatinine Ratio 22.0 H (8-20) Glucose 105 H (70-100) mg/dL Lactic Acid (0.5-2.0) mmol/L Calcium 9.0 (8.6-10.3) mg/dL Total Bilirubin 0.80 (0.2-1.0) mg/dL AST 45 H (13-39) U/L ALT 131 H (7-52) U/L Alkaline Phosphatase 121 H (34-104) U/L Troponin I 0.05 H* (<0.04) ng/mL C-Reactive Protein 33.74 H (<8.01) mg/L B-Natriuretic Peptide (<=100) pg/mL Total Protein 6.5 (6.4-8.9) g/dL Albumin 3.5 (3.2-5.2) g/dL Globulin 3.0 (2-4) g/dL Albumin/Globulin Ratio 1.2 (1-3) 12/10/18 12/10/18 Range/Units 18:05 18:05 WBC (3.5-10.8) 10^3/uL RBC (4.18-5.48) 10^6 /uL Hgb (14.0-18.0) g/dL Hct (42-52) % MCV (80-94) fL MCH (27-31) pg MCHC (31-36) g/dL RDW (10.5-15) % Plt Count (150-450) 10^3/uL MPV (7.4-10.4) fL Neut % (Auto) % Lymph % (Auto) % [place] % (Auto) % Eos % (Auto) % Baso % (Auto) % Absolute Neuts (auto) (1.5-7.7) 10^3/ul Absolute Lymphs (auto) (1.0-4.8) 10^3/ul Absolute Monos (auto) (0-0.8) 10^3/ul Absolute Eos (auto) (0-0.6) 10^3/ul Absolute Basos (auto) (0-0.2) 10^3/ul Absolute Nucleated RBC 10^3/ul Nucleated RBC % D-Dimer, Quantitative (Less Than 230) ng/mL Sodium (135-145) mmol/L Potassium (3.5-5.0) mmol/L Chloride (101-111) mmol/L Carbon Dioxide (22-32) mmol/L Anion Gap (2-11) mmol/L BUN (6-24) mg/dL Creatinine (0.67-1.17) mg/dL Est GFR ( Amer) (>60) Est GFR (Non-Af Amer) (>60) BUN/Creatinine Ratio (8-20) Glucose (70-100) mg/dL Lactic Acid 3.0 H* (0.5-2.0) mmol/L Calcium (8.6-10.3) mg/dL Total Bilirubin (0.2-1.0) mg/dL AST (13-39) U/L ALT (7-52) U/L Alkaline Phosphatase (34-104) U/L Troponin I (<0.04) ng/mL C-Reactive Protein (<8.01) mg/L B-Natriuretic Peptide > 1300 H (<=100) pg/mL Total Protein (6.4-8.9) g/dL Albumin (3.2-5.2) g/dL Globulin (2-4) g/dL Albumin/Globulin Ratio (1-3) Microbiology and Other Data: Microbiology 12/11/18 01:55 Nasal Screen MRSA (PCR) - Final Nasal Mrsa Not Detected Assess/Plan/Problems-Billing Assessment: 78M with HFrEF 45-50, bioprosthetic aoritc valve now with stenosis, afib on Xarelto/amidarone, recent GIB x 2 with negative EGD/c-scope, CAD s/p stent to LAD, fem-pop bypass and stent, presents with progressive SOB, LE edema, and significant weight gain in the context of outpatient furosemide being held after GI bleed in [place] earlier this month. - Patient Problems (1) Acute on chronic systolic (congestive) heart failure Comment: EF 45-50%. On furosemide 20mg daily at home but held in setting of GIB. - continue furosemide 40mg IV daily; giving a second dose today - will follow BMP/Mg - lisinopril 2.5mg held given EARLENE - metop suc 50mg daily - strict I&O; daily weights (2) A-fib Comment: Pt is in NSR. - cont amiodarone, metoprolol, and Xarelto - monitor for GIB (3) CAD (coronary artery disease) Comment: h/o STEMI and fem-pop bypass. Has stent in LAD. -continue metoprolol, statin -Plavix held this month given GIB; will need to figure out when able to restart (4) Anemia Comment: Hgb 8.4. On Xarelto. Plavix for left iliac stent (May 2017) and LAD Stent is HELD given GIB this month in [place] and received 3 u pRBC. - monitor for recurrance of GI bleed - cont iron/vit C - consider restarting Plavix if no recurrence of bleed
[2018-12-11] MEDS: Atorvastatin* 40 MG TAB PO SCH (16:19)
[2018-12-11 17:21] LABS: BUN/Creatinine Ratio 22.2 (8-20); Calcium 9.1 mg/dL (8.6-10.3); EGFR African American 53.4 (>60); EGFR Non-African American 44.1 (>60); Potassium 4.5 mmol/L (3.5-5.0)
[2018-12-12 05:19] LABS: Hematocrit 26 % (42-52); Hemoglobin 8.3 g/dL (14.0-18.0); Mean Corpuscular HGB Conc 32 g/dL (31-36); Mean Corpuscular Hemoglobin 27 pg (27-31); Mean Corpuscular Volume 84 fL (80-94); Mean Platelet Volume 7.1 fL (7.4-10.4); Platelet Count 377 10^3/uL (150-450); Red Blood Count 3.08 10^6 /uL (4.18-5.48); Red Cell Distribution Width 20 % (10.5-15); White Blood Count 7.2 10^3/uL (3.5-10.8)
[2018-12-12 05:35] LABS: BUN/Creatinine Ratio 23.6 (8-20); Calcium 8.8 mg/dL (8.6-10.3); EGFR African American 59.2 (>60); EGFR Non-African American 48.9 (>60); Magnesium 1.9 mg/dL (1.9-2.7); Potassium 4.1 mmol/L (3.5-5.0)
--- NOTE | 2018-12-12 07:29 | PN ---
Subjective Date of Service: 12/12/18 Interval History: HD # 3 on 12/12 78M with HFrEF 45-50, bioprosthetic aortic valve now with stenosis, afib on Xarelto/amidarone, recent GIB x 2 with negative EGD/c-scope, CAD s/p stent to LAD, fem-pop bypass and stent, presents with progressive SOB, LE edema, and significant weight gain in the context of outpatient furosemide being held after GI bleed in [place] earlier this month. Overnight no acute events, VSS Labs: Stable, rec'd Lasix 40 IV BID yesterday This morning seen in bed, he feels his legs are looking better, still having some SOB and crackles, no O2 needs. Has clear understanding of what brought him in, discussed with patient heart failure mechanism and goal of IV diuresis until able to ambulate without desat. No CP, still mild SOB no GI or complaints Objective Active Medications: Acetaminophen (Tylenol Tab*) 650 mg PO Q4H PRN PRN Reason: FEVER/PAIN Amiodarone HCl (Cordarone Tab*) 200 mg PO DAILY [facility] Last Admin: 12/11/18 10:13 Dose: 200 mg Ascorbic Acid (Vitamin C Tab*) 500 mg PO DAILY [facility] Atorvastatin Calcium (Lipitor*) 40 mg PO QPM [facility] Last Admin: 12/11/18 16:19 Dose: 40 mg Cholecalciferol (Vitamin D Tab*) 1,000 units PO DAILY [facility] Last Admin: 12/11/18 10:13 Dose: 1,000 units Ferrous Sulfate (Ferrous Sulfate Tab*) 325 mg PO DAILY [facility] Furosemide (Lasix Iv*) 40 mg IV DAILY [facility] Last Admin: 12/11/18 10:12 Dose: 40 mg Metoprolol Succinate (Toprol Xl Tab*) 50 mg PO DAILY [facility] Last Admin: 12/11/18 10:13 Dose: 50 mg Pantoprazole Sodium (Protonix Tab*) 40 mg PO DAILY [facility] Last Admin: 12/11/18 10:13 Dose: 40 mg Rivaroxaban (Xarelto(*)) 20 mg PO DAILY [facility] Last Admin: 12/11/18 10:13 Dose: 20 mg Vital Signs - 8 hr 12/12/18 03:51 Temperature 97.5 F Pulse Rate 51 Respiratory 18 Rate Blood Pressure 119/45 (mmHg) O2 Sat by Pulse 97 Oximetry Oxygen Devices in Use Now: None Appearance: Pleasant man in NAD Eyes: No Scleral Icterus, PERRLA Ears/Nose/Mouth/Throat: NL Teeth, Lips, Gums, Mucous Membranes Moist Neck: NL Appearance and Movements; NL JVP Respiratory: Symmetrical Chest Expansion and Respiratory Effort, - - Crackles in L lung base Cardiovascular: - - 3+ edema to blt fonseca JVP at 6cm, RRR, Grade 3 systolic murumur, ? soft diastolic murmur, S3 Abdominal: NL Sounds; No Tenderness; No Distention, No Hepatosplenomegaly Lymphatic: No Cervical Adenopathy Extremities: - - blt LE edema as per CV exam Skin: No Rash or Ulcers Neurological: Alert and Oriented x 3 Result Diagrams: 12/12/18 04:37 12/12/18 04:37 Additional Lab and Data: Lab Results 12/10/18 12/10/18 12/10/18 Range/Units 18:05 18:05 18:05 WBC 7.0 (3.5-10.8) 10^3/uL RBC 3.11 L (4.18-5.48) 10^6 /uL Hgb 8.6 L (14.0-18.0) g/dL Hct 27 L (42-52) % MCV 86 (80-94) fL MCH 28 (27-31) pg MCHC 32 (31-36) g/dL RDW 19 H (10.5-15) % Plt Count 371 (150-450) 10^3/uL MPV 7.2 L (7.4-10.4) fL Neut % (Auto) 70.0 % Lymph % (Auto) 18.6 % [place] % (Auto) 9.1 % Eos % (Auto) 1.2 % Baso % (Auto) 1.1 % Absolute Neuts (auto) 4.9 (1.5-7.7) 10^3/ul Absolute Lymphs (auto) 1.3 (1.0-4.8) 10^3/ul Absolute Monos (auto) 0.6 (0-0.8) 10^3/ul Absolute Eos (auto) 0.1 (0-0.6) 10^3/ul Absolute Basos (auto) 0.1 (0-0.2) 10^3/ul Absolute Nucleated RBC 0.0 10^3/ul Nucleated RBC % 0.0 D-Dimer, Quantitative 260 H (Less Than 230) ng/mL Sodium 136 (135-145) mmol/L Potassium 4.5 (3.5-5.0) mmol/L Chloride 104 (101-111) mmol/L Carbon Dioxide 23 (22-32) mmol/L Anion Gap 9 (2-11) mmol/L BUN 33 H (6-24) mg/dL Creatinine 1.50 H (0.67-1.17) mg/dL Est GFR ( Amer) 54.6 (>60) Est GFR (Non-Af Amer) 45.1 (>60) BUN/Creatinine Ratio 22.0 H (8-20) Glucose 105 H (70-100) mg/dL Lactic Acid (0.5-2.0) mmol/L Calcium 9.0 (8.6-10.3) mg/dL Total Bilirubin 0.80 (0.2-1.0) mg/dL AST 45 H (13-39) U/L ALT 131 H (7-52) U/L Alkaline Phosphatase 121 H (34-104) U/L Troponin I 0.05 H* (<0.04) ng/mL C-Reactive Protein 33.74 H (<8.01) mg/L B-Natriuretic Peptide (<=100) pg/mL Total Protein 6.5 (6.4-8.9) g/dL Albumin 3.5 (3.2-5.2) g/dL Globulin 3.0 (2-4) g/dL Albumin/Globulin Ratio 1.2 (1-3) 12/10/18 12/10/18 Range/Units 18:05 18:05 WBC (3.5-10.8) 10^3/uL RBC (4.18-5.48) 10^6 /uL Hgb (14.0-18.0) g/dL Hct (42-52) % MCV (80-94) fL MCH (27-31) pg MCHC (31-36) g/dL RDW (10.5-15) % Plt Count (150-450) 10^3/uL MPV (7.4-10.4) fL Neut % (Auto) % Lymph % (Auto) % [place] % (Auto) % Eos % (Auto) % Baso % (Auto) % Absolute Neuts (auto) (1.5-7.7) 10^3/ul Absolute Lymphs (auto) (1.0-4.8) 10^3/ul Absolute Monos (auto) (0-0.8) 10^3/ul Absolute Eos (auto) (0-0.6) 10^3/ul Absolute Basos (auto) (0-0.2) 10^3/ul Absolute Nucleated RBC 10^3/ul Nucleated RBC % D-Dimer, Quantitative (Less Than 230) ng/mL Sodium (135-145) mmol/L Potassium (3.5-5.0) mmol/L Chloride (101-111) mmol/L Carbon Dioxide (22-32) mmol/L Anion Gap (2-11) mmol/L BUN (6-24) mg/dL Creatinine (0.67-1.17) mg/dL Est GFR ( Amer) (>60) Est GFR (Non-Af Amer) (>60) BUN/Creatinine Ratio (8-20) Glucose (70-100) mg/dL Lactic Acid 3.0 H* (0.5-2.0) mmol/L Calcium (8.6-10.3) mg/dL Total Bilirubin (0.2-1.0) mg/dL AST (13-39) U/L ALT (7-52) U/L Alkaline Phosphatase (34-104) U/L Troponin I (<0.04) ng/mL C-Reactive Protein (<8.01) mg/L B-Natriuretic Peptide > 1300 H (<=100) pg/mL Total Protein (6.4-8.9) g/dL Albumin (3.2-5.2) g/dL Globulin (2-4) g/dL Albumin/Globulin Ratio (1-3) Microbiology and Other Data: Microbiology 12/11/18 01:55 Nasal Screen MRSA (PCR) - Final Nasal Mrsa Not Detected Assess/Plan/Problems-Billing Assessment: 78M with HFrEF 45-50, bioprosthetic aoritc valve now with stenosis, afib on Xarelto/amidarone, recent GIB x 2 with negative EGD/c-scope, CAD s/p stent to LAD, fem-pop bypass and stent, presents with progressive SOB, LE edema, and significant weight gain in the context of outpatient furosemide being held after GI bleed in [place] earlier this month. - Patient Problems (1) Acute on chronic systolic (congestive) heart failure Current Visit: Yes Status: Acute Code(s): I50.23 - ACUTE ON CHRONIC SYSTOLIC (CONGESTIVE) HEART FAILURE SNOMED Code(s): 804933007 Comment: EF 45-50%. On furosemide 20mg daily at home but held in setting of GIB. - continue furosemide 40mg IV daily; giving a second dose today 12/12 - will follow BMP/Mg - lisinopril 2.5mg held given EARLENE - metop suc 50mg daily - strict I&O; daily weights (2) A-fib Current Visit: Yes Status: Acute Code(s): I48.91 - UNSPECIFIED ATRIAL FIBRILLATION SNOMED Code(s): 20439116 Comment: Pt is in NSR. - cont amiodarone, metoprolol, and Xarelto - monitor for GIB (3) Anemia Current Visit: Yes Status: Acute Code(s): D64.9 - ANEMIA, UNSPECIFIED SNOMED Code(s): 528401075 Comment: Hgb 8.4. On Xarelto. Plavix for left iliac stent (May 2017) and LAD Stent is HELD given GIB this month in [place] and received 3 u pRBC. - monitor for recurrance of GI bleed - cont iron/vit C - consider restarting Plavix if no recurrence of bleed (4) CAD (coronary artery disease) Current Visit: Yes Status: Acute Code(s): I25.10 - ATHSCL HEART DISEASE OF [place] CORONARY ARTERY W/O ANG PCTRS SNOMED Code(s): 06854134 Comment: h/o STEMI and fem-pop bypass. Has stent in LAD. -continue metoprolol, statin -Plavix held this month given GIB; will need to figure out when able to restart (5) DVT prophylaxis Current Visit: No Status: Acute Code(s): BOL5629 - SNOMED Code(s): 397429150 Comment: on Xarelto (6) Full code status Current Visit: No Status: Acute Code(s): Z78.9 - OTHER SPECIFIED HEALTH STATUS SNOMED Code(s): 113189369 Status and Disposition: Inpatient
[2018-12-12] MEDS: Furosemide IV* 10 MG/ML VIAL (40 MG) IV SCH (10:21)
[2018-12-12] MEDS: Rivaroxaban TAB(*) 20 MG TAB PO SCH (10:23)
[2018-12-12] MEDS: Metoprolol Succinate XL TAB* 50 MG PO SCH (10:23)
[2018-12-12] MEDS: Ascorbic Acid TAB* 500 MG PO SCH (10:23)
[2018-12-12] MEDS: Pantoprazole TAB * 40 MG TAB PO SCH (10:23)
[2018-12-12] MEDS: Cholecalciferol TAB* 1000 UNITS PO SCH (10:23)
[2018-12-12] MEDS: Amiodarone TAB* 200 MG PO SCH (10:23)
[2018-12-12] MEDS: Ferrous Sulfate TAB* 325 MG PO SCH (10:23)
[2018-12-12] MEDS ORDERED: Furosemide IV* 10 MG/ML VIAL (40 MG) IV ONE (14:00)
[2018-12-12] MEDS: Atorvastatin* 40 MG TAB PO SCH (18:31)
[2018-12-13 06:52] LABS: BUN/Creatinine Ratio 22.7 (8-20); Calcium 8.8 mg/dL (8.6-10.3); EGFR African American 65.6 (>60); EGFR Non-African American 54.2 (>60); Magnesium 1.9 mg/dL (1.9-2.7)
[2018-12-13] MEDS: Furosemide IV* 10 MG/ML VIAL (40 MG) IV SCH (08:08)
[2018-12-13] MEDS: Metoprolol Succinate XL TAB* 50 MG PO SCH (08:21)
[2018-12-13] MEDS: Ferrous Sulfate TAB* 325 MG PO SCH (08:21)
--- NOTE | 2018-12-13 08:21 | PN ---
Subjective Date of Service: 12/13/18 Interval History: 2 doses of furosemide 40mg IV yesterday - weights stable and fluid net positive ? Improvement in LE edema but still with significant NINA, no SOB at rest. Pt reports urine output trailed off. Will give one dose of oral thiazide diuretic followed by a second dose of furosemide IV and follow output. Will increase mg of furosemide IV to start tomorrow morning. Denies melena or blood in stool. Last TTE here was over 1 year ago. Will order another to monitor AV stenosis. Objective Active Medications: Acetaminophen (Tylenol Tab*) 650 mg PO Q4H PRN PRN Reason: FEVER/PAIN Amiodarone HCl (Cordarone Tab*) 200 mg PO DAILY [facility] Last Admin: 12/12/18 10:23 Dose: 200 mg Ascorbic Acid (Vitamin C Tab*) 500 mg PO DAILY [facility] Last Admin: 12/12/18 10:23 Dose: 500 mg Atorvastatin Calcium (Lipitor*) 40 mg PO QPM [facility] Last Admin: 12/12/18 18:31 Dose: 40 mg Cholecalciferol (Vitamin D Tab*) 1,000 units PO DAILY [facility] Last Admin: 12/12/18 10:23 Dose: 1,000 units Ferrous Sulfate (Ferrous Sulfate Tab*) 325 mg PO DAILY [facility] Last Admin: 12/12/18 10:23 Dose: 325 mg Furosemide (Lasix Iv*) 40 mg IV DAILY [facility] Last Admin: 12/13/18 08:08 Dose: 40 mg Metoprolol Succinate (Toprol Xl Tab*) 50 mg PO DAILY [facility] Last Admin: 12/12/18 10:23 Dose: 50 mg Pantoprazole Sodium (Protonix Tab*) 40 mg PO DAILY [facility] Last Admin: 12/12/18 10:23 Dose: 40 mg Rivaroxaban (Xarelto(*)) 20 mg PO DAILY [facility] Last Admin: 12/12/18 10:23 Dose: 20 mg Vital Signs - 8 hr 12/13/18 12/13/18 12/13/18 02:04 03:10 07:24 Temperature 97.8 F 97.9 F Pulse Rate 49 52 Respiratory 18 16 Rate Blood Pressure 122/62 110/50 126/47 (mmHg) O2 Sat by Pulse 98 97 Oximetry Oxygen Devices in Use Now: None Appearance: well appearing, NAD, no increased WOB Eyes: No Scleral Icterus Ears/Nose/Mouth/Throat: Clear Oropharnyx, Mucous Membranes Moist Neck: NL Appearance and Movements; NL JVP Respiratory: - - bibasilar crackles Cardiovascular: RRR, - - systolic murmur loudest at RUSB Abdominal: NL Sounds; No Tenderness; No Distention, No Hepatosplenomegaly Extremities: - - 3+ LE edema 2/3 up fonseca; wwp Neurological: Alert and Oriented x 3, NL Sensation, NL Muscle Strength and Tone Result Diagrams: 12/12/18 04:37 12/14/18 06:16 Additional Lab and Data: Lab Results 12/10/18 12/10/18 12/10/18 Range/Units 18:05 18:05 18:05 WBC 7.0 (3.5-10.8) 10^3/uL RBC 3.11 L (4.18-5.48) 10^6 /uL Hgb 8.6 L (14.0-18.0) g/dL Hct 27 L (42-52) % MCV 86 (80-94) fL MCH 28 (27-31) pg MCHC 32 (31-36) g/dL RDW 19 H (10.5-15) % Plt Count 371 (150-450) 10^3/uL MPV 7.2 L (7.4-10.4) fL Neut % (Auto) 70.0 % Lymph % (Auto) 18.6 % Snyder % (Auto) 9.1 % Eos % (Auto) 1.2 % Baso % (Auto) 1.1 % Absolute Neuts (auto) 4.9 (1.5-7.7) 10^3/ul Absolute Lymphs (auto) 1.3 (1.0-4.8) 10^3/ul Absolute Monos (auto) 0.6 (0-0.8) 10^3/ul Absolute Eos (auto) 0.1 (0-0.6) 10^3/ul Absolute Basos (auto) 0.1 (0-0.2) 10^3/ul Absolute Nucleated RBC 0.0 10^3/ul Nucleated RBC % 0.0 D-Dimer, Quantitative 260 H (Less Than 230) ng/mL Sodium 136 (135-145) mmol/L Potassium 4.5 (3.5-5.0) mmol/L Chloride 104 (101-111) mmol/L Carbon Dioxide 23 (22-32) mmol/L Anion Gap 9 (2-11) mmol/L BUN 33 H (6-24) mg/dL Creatinine 1.50 H (0.67-1.17) mg/dL Est GFR ( Amer) 54.6 (>60) Est GFR (Non-Af Amer) 45.1 (>60) BUN/Creatinine Ratio 22.0 H (8-20) Glucose 105 H (70-100) mg/dL Lactic Acid (0.5-2.0) mmol/L Calcium 9.0 (8.6-10.3) mg/dL Total Bilirubin 0.80 (0.2-1.0) mg/dL AST 45 H (13-39) U/L ALT 131 H (7-52) U/L Alkaline Phosphatase 121 H (34-104) U/L Troponin I 0.05 H* (<0.04) ng/mL C-Reactive Protein 33.74 H (<8.01) mg/L B-Natriuretic Peptide (<=100) pg/mL Total Protein 6.5 (6.4-8.9) g/dL Albumin 3.5 (3.2-5.2) g/dL Globulin 3.0 (2-4) g/dL Albumin/Globulin Ratio 1.2 (1-3) 12/10/18 12/10/18 Range/Units 18:05 18:05 WBC (3.5-10.8) 10^3/uL RBC (4.18-5.48) 10^6 /uL Hgb (14.0-18.0) g/dL Hct (42-52) % MCV (80-94) fL MCH (27-31) pg MCHC (31-36) g/dL RDW (10.5-15) % Plt Count (150-450) 10^3/uL MPV (7.4-10.4) fL Neut % (Auto) % Lymph % (Auto) % Snyder % (Auto) % Eos % (Auto) % Baso % (Auto) % Absolute Neuts (auto) (1.5-7.7) 10^3/ul Absolute Lymphs (auto) (1.0-4.8) 10^3/ul Absolute Monos (auto) (0-0.8) 10^3/ul Absolute Eos (auto) (0-0.6) 10^3/ul Absolute Basos (auto) (0-0.2) 10^3/ul Absolute Nucleated RBC 10^3/ul Nucleated RBC % D-Dimer, Quantitative (Less Than 230) ng/mL Sodium (135-145) mmol/L Potassium (3.5-5.0) mmol/L Chloride (101-111) mmol/L Carbon Dioxide (22-32) mmol/L Anion Gap (2-11) mmol/L BUN (6-24) mg/dL Creatinine (0.67-1.17) mg/dL Est GFR ( Amer) (>60) Est GFR (Non-Af Amer) (>60) BUN/Creatinine Ratio (8-20) Glucose (70-100) mg/dL Lactic Acid 3.0 H* (0.5-2.0) mmol/L Calcium (8.6-10.3) mg/dL Total Bilirubin (0.2-1.0) mg/dL AST (13-39) U/L ALT (7-52) U/L Alkaline Phosphatase (34-104) U/L Troponin I (<0.04) ng/mL C-Reactive Protein (<8.01) mg/L B-Natriuretic Peptide > 1300 H (<=100) pg/mL Total Protein (6.4-8.9) g/dL Albumin (3.2-5.2) g/dL Globulin (2-4) g/dL Albumin/Globulin Ratio (1-3) Microbiology and Other Data: Microbiology 12/11/18 01:55 Nasal Screen MRSA (PCR) - Final Nasal Mrsa Not Detected Assess/Plan/Problems-Billing Assessment: 78M with HFrEF 45-50, bioprosthetic aoritc valve now with stenosis, afib on Xarelto/amidarone, recent GIB x 2 with negative EGD/c-scope, CAD s/p stent to LAD, fem-pop bypass and stent, presents with progressive SOB, LE edema, and significant weight gain in the context of outpatient furosemide being held after GI bleed in [place] earlier this month. - Patient Problems (1) Acute on chronic systolic (congestive) heart failure Comment: EF 50-55%, of bioprosthetic valve is [id number], unchanged for over 1 year. On furosemide 20mg daily at home but held in setting of GIB. - good response to furosemide 80mg IV bid; replete lytes prn - lisinopril 2.5mg held given EARLENE - metop suc 25mg daily - strict I&O; daily weights (2) A-fib Comment: Pt is in NSR. - cont amiodarone, metoprolol, and Xarelto - monitor for GIB (3) CAD (coronary artery disease) Comment: h/o STEMI and fem-pop bypass. Has stent in LAD. -continue metoprolol, statin -Plavix held this month given GIB; will need to figure out when able to restart (4) Anemia Comment: Hgb 8.4. On Xarelto. Plavix for left iliac stent (May 2017) and LAD Stent is HELD given GIB this month in [place] and received 3 u pRBC. - monitor for recurrance of GI bleed - cont iron/vit C - consider restarting Plavix if no recurrence of bleed (5) DVT prophylaxis Current Visit: No Status: Acute Code(s): IWS0249 - SNOMED Code(s): 504434230 Comment: on Xarelto (6) Full code status Current Visit: No Status: Acute Code(s): Z78.9 - OTHER SPECIFIED HEALTH STATUS SNOMED Code(s): 797567963 Status and Disposition: Inpatient
[2018-12-13] MEDS: Amiodarone TAB* 200 MG PO SCH (08:22)
[2018-12-13] MEDS: Ascorbic Acid TAB* 500 MG PO SCH (08:22)
[2018-12-13] MEDS: Rivaroxaban TAB(*) 20 MG TAB PO SCH (08:22)
[2018-12-13] MEDS: Pantoprazole TAB * 40 MG TAB PO SCH (08:22)
[2018-12-13] MEDS: Cholecalciferol TAB* 1000 UNITS PO SCH (08:22)
[2018-12-13] MEDS ORDERED: Hydrochlorothiazide TAB* 25 MG PO ONE (09:28)
[2018-12-13] MEDS ORDERED: Furosemide IV* 10 MG/ML VIAL (40 MG) IV ONE (12:00)
[2018-12-13 17:15] LABS: BUN/Creatinine Ratio 21.2 (8-20); EGFR African American 54.2 (>60); EGFR Non-African American 44.8 (>60)
[2018-12-13] MEDS: Atorvastatin* 40 MG TAB PO SCH (18:10)
[2018-12-14] MEDS ORDERED: Furosemide IV* 10 MG/ML 10 ML VIAL (100 MG) IV SCH (06:00)
[2018-12-14 06:53] LABS: BUN/Creatinine Ratio 22.1 (8-20); EGFR African American 56.8 (>60); EGFR Non-African American 46.9 (>60); Potassium 4.1 mmol/L (3.5-5.0)
[2018-12-14] MEDS: Pantoprazole TAB * 40 MG TAB PO SCH (08:57)
[2018-12-14] MEDS: Metoprolol Succinate XL TAB* 25 MG PO SCH (08:57)
[2018-12-14] MEDS: Ascorbic Acid TAB* 500 MG PO SCH (08:57)
[2018-12-14] MEDS: Ferrous Sulfate TAB* 325 MG PO SCH (08:57)
[2018-12-14] MEDS: Cholecalciferol TAB* 1000 UNITS PO SCH (08:57)
[2018-12-14] MEDS: Rivaroxaban TAB(*) 20 MG TAB PO SCH (08:58)
[2018-12-14] MEDS: Amiodarone TAB* 200 MG PO SCH (08:58)
--- NOTE | 2018-12-14 10:04 | ECHO ---
*[facility]* [place] [address] Fax #: [phone] Patient: Cande, Height: 67 in / Suhail 170.2 cm : 1940 Weight: 189.6 lb / Study Date: 12/14/2018 86.2 kg Age: 78 BP: 114 / 41 Gender: M BMI/BSA: 29.8 kg/m^2 HR: 50 bpm / 1.98 m^2 *Division Engineer: Jessa Gresham [facility] *Referring Physician: * Asya Sepulveda *Reading Physician: * Derick Mattson MD Indications: Congestive Heart Failure. History: Atrial fibrillation. Coronary artery disease. Peripheral embolism. Atherosclerosis. PMH: Myocardial infarction. Risk factors: Hypertension. Dyslipidemia. Labs, prior tests, procedures, and surgery: Catheterization. There was a stenosis which was treated with a stent. Aortic valve replacement with a bioprosthetic valve. Conclusions Summary: 1. Left ventricle: Systolic function is normal. The estimated ejection fraction is 50-55%. Doppler parameters are consistent with restrictive physiology, indicative of decreased left ventricular diastolic compliance and/or increased left atrial pressure. 2. Regional wall motion abnormality: Mild hypokinesis of the mid anteroseptal and mid inferoseptal myocardium. 3. Mitral valve: There is moderate to severe regurgitation. 4. Aortic valve: There is a bioprosthetic valve. The findings are consistent with moderate to severe stenosis. The mean systolic gradient is 35.0 mm Hg. The valve area by the velocity-time integral method is 0.70 cm^2. The valve area by the peak velocity method is 0.60 cm^2. 5. Tricuspid valve: There is mild regurgitation. 6. Ascending aorta: The ascending aorta is not visualized. 7. Compared to study of09/22/17, the left ventricle function and aortic valve replacement stenosis are the same. The mitral regurgitation is slightly worse Study data: Procedure: Transthoracic echocardiography was performed. Image quality was good. The study was technically limited due to restricted patient mobility. Complete 2D, spectral Doppler, and color flow Doppler. Location: Bedside. Patient status: Inpatient. Patient room number: 445 02. Rhythm: Bradycardia. Findings Left ventricle: The cavity size is normal. Wall thickness is mildly increased. Systolic function is normal. The estimated ejection fraction is 50-55%. Regional wall motion abnormalities: Mild hypokinesis of the mid anteroseptal and mid inferoseptal myocardium. Doppler parameters are consistent with restrictive physiology, indicative of decreased left ventricular diastolic compliance and/or increased left atrial pressure. Right ventricle: The cavity size is normal. Systolic function is low normal. Systolic pressure is mildly increased. Left atrium: The atrium is severely dilated. Right atrium: The atrium is at the upper limits of normal in size. Mitral valve: The annulus is mildly calcified. The leaflets are mildly thickened. There is no evidence of stenosis. There is moderate to severe regurgitation. Aortic valve: There is a bioprosthetic valve. Valve mobility is restricted. The findings are consistent with moderate to severe stenosis. There is mild regurgitation. Tricuspid valve: The leaflets are normal thickness. There is no evidence of stenosis. There is mild regurgitation. Pulmonic valve: The leaflets are normal thickness. There is no evidence of stenosis. There is trivial regurgitation. Aorta: Ascending aorta: The ascending aorta is not visualized. Aortic arch: The aortic arch is not dilated. The aortic root is not dilated. Pericardium: There is no significant pericardial effusion. Pulmonary arteries: The main pulmonary artery is normal-sized. Systemic veins: Inferior vena cava: The vessel is dilated. The respirophasic diameter changes are blunted (< 50%). Measurements Left ventricle Value Ref Aortic valve continued Value Ref JULIO CESAR, LAX 5.5 cm 4.2 - 5.8 Mean grad, S 35.0 mm Hg ----- ESD, LAX 3.9 cm 2.5 - 4.0 Peak grad, S 66.0 mm Hg ----- FS, LAX 29 % 25 - 43 MANDI, VTI 0.70 cm^2 ----- PW, ED, LAX (H) 1.1 cm 0.6 - 1.0 MANDI, Vmax 0.60 cm^2 ----- EF 55 % 52 - 72 E', lat nellie, TDI (L) 6.5 cm/sec >=10.0 Mitral valve Value R ef E/e', lat nellie, 18 Peak E 1.18 m/sec ---- - TDI Peak A 0.25 m/sec ----- E', med nellie, TDI (L) 2.5 cm/sec >=7.0 Decel time 190 ms - ---- E/e', med nellie, 47 PHT 133 ms ---- - TDI Mean grad, D 1.0 mm Hg ----- E', avg, TDI 4.5 cm/sec Peak grad, D 6.0 mm Hg ---- - E/e', avg, TDI (H) 26 <=14 MVA 1.5 cm^2 - ---- MVA, PHT 1.7 cm^2 ----- LVOT Value Ref MR PISA radius 0.5 cm ----- Diam, S 2.00 cm Max MR v 5.92 m/sec ----- Peak jacki, S 0.81 m/sec ERO, PISA 0.08 cm^2 ----- VTI, S 21.5 cm MR vol, PISA 17 ml ----- Peak grad, S 3 mm Hg MR fraction, PISA 20 % ----- Mean grad, S 1 mm Hg Pulmonic valve Value Ref Ventricular septum Value Ref Peak v, S 1 m/sec ----- IVS, ED (H) 1.2 cm 0.6 - 1.0 Peak grad, S 4.0 mm Hg ----- Right ventricle Value Ref Tricuspid valve Value Ref JULIO CESAR, LAX 3.3 cm TR peak v 2.6 m/sec <=2.8 JULIO CESAR minor ax, A4C 3.4 cm 1.9 - 3.5 Peak RV-RA grad, S 27 mm Hg ----- mid Pressure, S 35 mm Hg Aortic root Value Ref Root diam 2.7 cm <4.1 Left atrium Value Ref AP dim, ES (H) 6.10 cm 3.00 - Aortic arch Value Ref 4.00 Arch diam 2.5 cm ----- ML dim, A4C 5.5 cm SI dim, A4C 6.1 cm Decending aorta Value Ref Vol/bsa, ES, A/L (H) 54 ml/m^2 16 - 34 Joana peak jacki 0.85 m/sec ----- Right atrium Value Ref Pulmonary artery Value Ref SI dim, ES 5.3 cm 3.4 - 5.3 Pressure, S 31.0 mm Hg ----- ML dim, ES, A4C 3.9 cm 2.6 - 4.4 Estimated RAP 8 mm Hg Inferior vena cava Value Ref Diam 2.3 cm ----- Aortic valve Value Ref Nellie diam, ED 1.8 cm Peak v, S 4.1 m/sec VTI, S 102.0 cm Legend: (L) and (H) rafa values outside specified reference range. Prepared and electronically signed by Derick Mattson MD 12/14/2018 10:04
--- NOTE | 2018-12-14 11:04 | PN ---
Subjective Date of Service: 12/14/18 Interval History: Pt denies good UOP after addition of HCTZ x 1 dose yesterday, but reports significantly increased UOP after doubling IV furosemide dose to 80mg this AM. Will give another dose at noon and monitor UOP, kidney function, and 'lytes. Message sent to patient's hand packager for earlier clinic appointment. TTE unchanged from over 1 year ago. Pt reports improvement in NINA and LE edema. Objective Active Medications: Acetaminophen (Tylenol Tab*) 650 mg PO Q4H PRN PRN Reason: FEVER/PAIN Amiodarone HCl (Cordarone Tab*) 200 mg PO DAILY [facility] Last Admin: 12/14/18 08:58 Dose: 200 mg Ascorbic Acid (Vitamin C Tab*) 500 mg PO DAILY [facility] Last Admin: 12/14/18 08:57 Dose: 500 mg Atorvastatin Calcium (Lipitor*) 40 mg PO QPM [facility] Last Admin: 12/13/18 18:10 Dose: 40 mg Cholecalciferol (Vitamin D Tab*) 1,000 units PO DAILY [facility] Last Admin: 12/14/18 08:57 Dose: 1,000 units Ferrous Sulfate (Ferrous Sulfate Tab*) 325 mg PO DAILY [facility] Last Admin: 12/14/18 08:57 Dose: 325 mg Furosemide (Lasix Iv*) 80 mg IV ONCE ONE Stop: 12/14/18 12:01 Furosemide (Lasix Iv*) 80 mg IV DAILY@0600 [facility] Metoprolol Succinate (Toprol Xl Tab*) 25 mg PO DAILY [facility] Last Admin: 12/14/18 08:57 Dose: 25 mg Pantoprazole Sodium (Protonix Tab*) 40 mg PO DAILY [facility] Last Admin: 12/14/18 08:57 Dose: 40 mg Rivaroxaban (Xarelto(*)) 20 mg PO DAILY [facility] Last Admin: 12/14/18 08:58 Dose: 20 mg Vital Signs - 8 hr 12/14/18 04:06 Temperature 97.8 F Pulse Rate 51 Respiratory 16 Rate Blood Pressure 114/41 (mmHg) O2 Sat by Pulse 97 Oximetry Oxygen Devices in Use Now: None Appearance: well appearing, sitting up with feet elevated eating breakfast Eyes: - - L eye prosthesis Ears/Nose/Mouth/Throat: Mucous Membranes Moist Neck: NL Appearance and Movements; NL JVP Respiratory: - - improved bibasilar crackles Cardiovascular: RRR - systolic murmur Abdominal: NL Sounds; No Tenderness; No Distention, No Hepatosplenomegaly Extremities: - - 2+ edema detention up legs Skin: No Rash or Ulcers Neurological: Alert and Oriented x 3, NL Muscle Strength and Tone Result Diagrams: 12/12/18 04:37 12/14/18 06:16 Additional Lab and Data: Lab Results 12/10/18 12/10/18 12/10/18 Range/Units 18:05 18:05 18:05 WBC 7.0 (3.5-10.8) 10^3/uL RBC 3.11 L (4.18-5.48) 10^6 /uL Hgb 8.6 L (14.0-18.0) g/dL Hct 27 L (42-52) % MCV 86 (80-94) fL MCH 28 (27-31) pg MCHC 32 (31-36) g/dL RDW 19 H (10.5-15) % Plt Count 371 (150-450) 10^3/uL MPV 7.2 L (7.4-10.4) fL Neut % (Auto) 70.0 % Lymph % (Auto) 18.6 % Tate % (Auto) 9.1 % Eos % (Auto) 1.2 % Baso % (Auto) 1.1 % Absolute Neuts (auto) 4.9 (1.5-7.7) 10^3/ul Absolute Lymphs (auto) 1.3 (1.0-4.8) 10^3/ul Absolute Monos (auto) 0.6 (0-0.8) 10^3/ul Absolute Eos (auto) 0.1 (0-0.6) 10^3/ul Absolute Basos (auto) 0.1 (0-0.2) 10^3/ul Absolute Nucleated RBC 0.0 10^3/ul Nucleated RBC % 0.0 D-Dimer, Quantitative 260 H (Less Than 230) ng/mL Sodium 136 (135-145) mmol/L Potassium 4.5 (3.5-5.0) mmol/L Chloride 104 (101-111) mmol/L Carbon Dioxide 23 (22-32) mmol/L Anion Gap 9 (2-11) mmol/L BUN 33 H (6-24) mg/dL Creatinine 1.50 H (0.67-1.17) mg/dL Est GFR ( Amer) 54.6 (>60) Est GFR (Non-Af Amer) 45.1 (>60) BUN/Creatinine Ratio 22.0 H (8-20) Glucose 105 H (70-100) mg/dL Lactic Acid (0.5-2.0) mmol/L Calcium 9.0 (8.6-10.3) mg/dL Total Bilirubin 0.80 (0.2-1.0) mg/dL AST 45 H (13-39) U/L ALT 131 H (7-52) U/L Alkaline Phosphatase 121 H (34-104) U/L Troponin I 0.05 H* (<0.04) ng/mL C-Reactive Protein 33.74 H (<8.01) mg/L B-Natriuretic Peptide (<=100) pg/mL Total Protein 6.5 (6.4-8.9) g/dL Albumin 3.5 (3.2-5.2) g/dL Globulin 3.0 (2-4) g/dL Albumin/Globulin Ratio 1.2 (1-3) 12/10/18 12/10/18 Range/Units 18:05 18:05 WBC (3.5-10.8) 10^3/uL RBC (4.18-5.48) 10^6 /uL Hgb (14.0-18.0) g/dL Hct (42-52) % MCV (80-94) fL MCH (27-31) pg MCHC (31-36) g/dL RDW (10.5-15) % Plt Count (150-450) 10^3/uL MPV (7.4-10.4) fL Neut % (Auto) % Lymph % (Auto) % Tate % (Auto) % Eos % (Auto) % Baso % (Auto) % Absolute Neuts (auto) (1.5-7.7) 10^3/ul Absolute Lymphs (auto) (1.0-4.8) 10^3/ul Absolute Monos (auto) (0-0.8) 10^3/ul Absolute Eos (auto) (0-0.6) 10^3/ul Absolute Basos (auto) (0-0.2) 10^3/ul Absolute Nucleated RBC 10^3/ul Nucleated RBC % D-Dimer, Quantitative (Less Than 230) ng/mL Sodium (135-145) mmol/L Potassium (3.5-5.0) mmol/L Chloride (101-111) mmol/L Carbon Dioxide (22-32) mmol/L Anion Gap (2-11) mmol/L BUN (6-24) mg/dL Creatinine (0.67-1.17) mg/dL Est GFR ( Amer) (>60) Est GFR (Non-Af Amer) (>60) BUN/Creatinine Ratio (8-20) Glucose (70-100) mg/dL Lactic Acid 3.0 H* (0.5-2.0) mmol/L Calcium (8.6-10.3) mg/dL Total Bilirubin (0.2-1.0) mg/dL AST (13-39) U/L ALT (7-52) U/L Alkaline Phosphatase (34-104) U/L Troponin I (<0.04) ng/mL C-Reactive Protein (<8.01) mg/L B-Natriuretic Peptide > 1300 H (<=100) pg/mL Total Protein (6.4-8.9) g/dL Albumin (3.2-5.2) g/dL Globulin (2-4) g/dL Albumin/Globulin Ratio (1-3) Microbiology and Other Data: Microbiology 12/11/18 01:55 Nasal Screen MRSA (PCR) - Final Nasal Mrsa Not Detected Assess/Plan/Problems-Billing Assessment: 78M with HFrEF 45-50, bioprosthetic aoritc valve now with stenosis, afib on Xarelto/amidarone, recent GIB x 2 with negative EGD/c-scope, CAD s/p stent to LAD, fem-pop bypass and stent, presents with progressive SOB, LE edema, and significant weight gain in the context of outpatient furosemide being held after GI bleed in [place] earlier this month. - Patient Problems (1) Acute on chronic systolic (congestive) heart failure Comment: EF 50-55%, of bioprosthetic valve is [id number], unchanged for over 1 year. On furosemide 20mg daily at home but held in setting of GIB. - good response to furosemide 80mg IV bid; replete lytes prn - lisinopril 2.5mg held given EARLENE - metop suc 25mg daily - strict I&O; daily weights (2) A-fib Comment: Pt is in NSR. - cont amiodarone, metoprolol, and Xarelto - monitor for GIB (3) CAD (coronary artery disease) Comment: h/o STEMI and fem-pop bypass. Has stent in LAD. -continue metoprolol, statin -Plavix held this month given GIB; will need to figure out when able to restart (4) Anemia Comment: Hgb 8.4. On Xarelto. Plavix for left iliac stent (May 2017) and LAD Stent is HELD given GIB this month in [place] and received 3 u pRBC. - monitor for recurrance of GI bleed - cont iron/vit C - consider restarting Plavix if no recurrence of bleed (5) DVT prophylaxis Current Visit: No Status: Acute Code(s): [id number] - SNOMED Code(s): 590919621 Comment: on Xarelto (6) Full code status Current Visit: No Status: Acute Code(s): Z78.9 - OTHER SPECIFIED HEALTH STATUS SNOMED Code(s): 888652079 Status and Disposition: Inpatient
[2018-12-14] MEDS ORDERED: Furosemide IV* 10 MG/ML 10 ML VIAL (100 MG) IV ONE (12:00)
[2018-12-14] MEDS: Atorvastatin* 40 MG TAB PO SCH (18:26)
[2018-12-15] MEDS: Furosemide IV* 10 MG/ML 10 ML VIAL (100 MG) IV SCH (06:24)
[2018-12-15 06:46] LABS: BUN/Creatinine Ratio 22.6 (8-20); Calcium 8.9 mg/dL (8.6-10.3); EGFR African American 56.4 (>60); EGFR Non-African American 46.6 (>60); Magnesium 1.9 mg/dL (1.9-2.7); Potassium 3.9 mmol/L (3.5-5.0)
[2018-12-15] MEDS ORDERED: Magnesium Sulfate 1 GM IV* 1 GM/100 ML BAG IV ONE (09:11)
[2018-12-15] MEDS ORDERED: Potassium Chlor TAB* 20 MEQ TAB.ER PO ONE (09:11)
[2018-12-15] MEDS: Metoprolol Succinate XL TAB* 25 MG PO SCH (10:06)
[2018-12-15] MEDS: Ferrous Sulfate TAB* 325 MG PO SCH (10:07)
[2018-12-15] MEDS: Ascorbic Acid TAB* 500 MG PO SCH (10:07)
[2018-12-15] MEDS: Amiodarone TAB* 200 MG PO SCH (10:07)
[2018-12-15] MEDS: Rivaroxaban TAB(*) 20 MG TAB PO SCH (10:07)
[2018-12-15] MEDS: Pantoprazole TAB * 40 MG TAB PO SCH (10:08)
[2018-12-15] MEDS: Cholecalciferol TAB* 1000 UNITS PO SCH (10:08)
[2018-12-15] MEDS ORDERED: Furosemide IV* 10 MG/ML 10 ML VIAL (100 MG) IV ONE (12:00)
[2018-12-15] MEDS: Atorvastatin* 40 MG TAB PO SCH (17:19)
--- NOTE | 2018-12-15 20:13 | PN ---
Subjective Date of Service: 12/15/18 Interval History: Pt with continued good response to furosemide 80mg IV bid. Weight 195 lbs -> 177 lbs. Pt reports dry weight of 172 lbs. Creatinine stable so will continue IV. Still with NINA but significantly improved. No longer SOB when walking to bathroom but still SOB when walking in hallway. Walked by RN and SaO2 dropped to 85%. Pt very motivated. Objective Active Medications: Acetaminophen (Tylenol Tab*) 650 mg PO Q4H PRN PRN Reason: FEVER/PAIN Amiodarone HCl (Cordarone Tab*) 200 mg PO DAILY [facility] Last Admin: 12/15/18 10:07 Dose: 200 mg Ascorbic Acid (Vitamin C Tab*) 500 mg PO DAILY [facility] Last Admin: 12/15/18 10:07 Dose: 500 mg Atorvastatin Calcium (Lipitor*) 40 mg PO QPM [facility] Last Admin: 12/15/18 17:19 Dose: 40 mg Cholecalciferol (Vitamin D Tab*) 1,000 units PO DAILY [facility] Last Admin: 12/15/18 10:08 Dose: 1,000 units Ferrous Sulfate (Ferrous Sulfate Tab*) 325 mg PO DAILY [facility] Last Admin: 12/15/18 10:07 Dose: 325 mg Furosemide (Lasix Iv*) 80 mg IV DAILY@0600 [facility] Last Admin: 12/15/18 06:24 Dose: 80 mg Metoprolol Succinate (Toprol Xl Tab*) 25 mg PO DAILY [facility] Last Admin: 12/15/18 10:06 Dose: 25 mg Pantoprazole Sodium (Protonix Tab*) 40 mg PO DAILY [facility] Last Admin: 12/15/18 10:08 Dose: 40 mg Rivaroxaban (Xarelto(*)) 20 mg PO DAILY [facility] Last Admin: 12/15/18 10:07 Dose: 20 mg Vital Signs - 8 hr 12/15/18 12/15/18 12/15/18 15:14 15:15 15:23 Temperature 97.5 F 97.5 F Pulse Rate 55 54 Respiratory 16 16 Rate Blood Pressure 106/42 106/42 (mmHg) O2 Sat by Pulse 98 98 99 Oximetry 12/15/18 15:38 Temperature 97.3 F Pulse Rate 49 Respiratory 16 Rate Blood Pressure 111/35 (mmHg) O2 Sat by Pulse 100 Oximetry Oxygen Devices in Use Now: None Appearance: well appearing, alert and pleasant Eyes: - - L eye prosthesis Ears/Nose/Mouth/Throat: Clear Oropharnyx, Mucous Membranes Moist Neck: NL Appearance and Movements; NL JVP Respiratory: Clear to Auscultation Cardiovascular: RRR, - - systolic murmur Abdominal: NL Sounds; No Tenderness; No Distention Lymphatic: No Cervical Adenopathy Extremities: - - 2+ edema longterm up shins Skin: No Rash or Ulcers Neurological: Alert and Oriented x 3, NL Sensation, NL Gait, NL Muscle Strength and Tone Result Diagrams: 12/12/18 04:37 12/15/18 06:06 Microbiology and Other Data: Microbiology 12/11/18 01:55 Nasal Screen MRSA (PCR) - Final Nasal Mrsa Not Detected Assess/Plan/Problems-Billing Assessment: 78M with HFrEF 45-50, bioprosthetic aoritc valve now with stenosis, afib on Xarelto/amidarone, recent GIB x 2 with negative EGD/c-scope, CAD s/p stent to LAD, fem-pop bypass and stent, presents with progressive SOB, LE edema, and significant weight gain in the context of outpatient furosemide being held after GI bleed in [place] earlier this month. - Patient Problems (1) Acute on chronic systolic (congestive) heart failure Comment: EF 50-55%, of bioprosthetic valve is [id number], unchanged for over 1 year. On furosemide 20mg daily at home but held in setting of GIB. - good response to furosemide 80mg IV bid; replete lytes prn - lisinopril 2.5mg held given EARLENE - metop suc 25mg daily - strict I&O; daily weights (2) Aortic stenosis Comment: Mod-severe for over 1 year. - will f/u with cards outpatient (3) A-fib Comment: Pt is in NSR. - cont amiodarone, metoprolol, and Xarelto - monitor for GIB (4) CAD (coronary artery disease) Comment: h/o STEMI and fem-pop bypass. Has stent in LAD. -continue metoprolol, statin -Plavix held this month given GIB; will need to figure out when able to restart (5) Anemia Comment: Hgb 8.4. On Xarelto. Plavix for left iliac stent (May 2017) and LAD Stent is HELD given GIB this month in [place] and received 3 u pRBC. - monitor for recurrance of GI bleed - cont iron/vit C - consider restarting Plavix if no recurrence of bleed (6) DVT prophylaxis Current Visit: No Status: Acute Code(s): [id number] - SNOMED Code(s): 468761869 Comment: on Tj (7) Full code status Current Visit: No Status: Acute Code(s): Z78.9 - OTHER SPECIFIED HEALTH STATUS SNOMED Code(s): 847429938 Status and Disposition: Inpatient
[2018-12-16] MEDS: Furosemide IV* 10 MG/ML 10 ML VIAL (100 MG) IV SCH (05:54)
[2018-12-16 06:51] LABS: BUN/Creatinine Ratio 24.8 (8-20); Calcium 9.1 mg/dL (8.6-10.3); EGFR African American 58.7 (>60); EGFR Non-African American 48.5 (>60); Magnesium 2.4 mg/dL (1.9-2.7); Potassium 4.3 mmol/L (3.5-5.0)
--- NOTE | 2018-12-16 08:04 | PN ---
Subjective Date of Service: 12/16/18 Interval History: HD # 7 on 12/16 78M with HFrEF 45-50, bioprosthetic aortic valve now with stenosis, afib on Xarelto/amidarone, recent GIB x 2 with negative EGD/c-scope, CAD s/p stent to LAD, fem-pop bypass and stent, presents with progressive SOB, LE edema, and significant weight gain in the context of outpatient furosemide being held after GI bleed in [place] earlier this month. Overnight no acute events, VSS Labs: Stable, rec'd Lasix 80 IV Weight 192 when admitted->185 This morning seen ambulating the halls, he feels his legs are looking better, almost return to baseline, no O2 needs. Has clear understanding of what brought him in, discussed with patient heart failure mechanism. Much education done at bedside with him and his . No CP, noSOB no GI or complaints Objective Active Medications: Acetaminophen (Tylenol Tab*) 650 mg PO Q4H PRN PRN Reason: FEVER/PAIN Amiodarone HCl (Cordarone Tab*) 200 mg PO DAILY [facility] Last Admin: 12/15/18 10:07 Dose: 200 mg Ascorbic Acid (Vitamin C Tab*) 500 mg PO DAILY [facility] Last Admin: 12/15/18 10:07 Dose: 500 mg Atorvastatin Calcium (Lipitor*) 40 mg PO QPM [facility] Last Admin: 12/15/18 17:19 Dose: 40 mg Cholecalciferol (Vitamin D Tab*) 1,000 units PO DAILY [facility] Last Admin: 12/15/18 10:08 Dose: 1,000 units Ferrous Sulfate (Ferrous Sulfate Tab*) 325 mg PO DAILY [facility] Last Admin: 12/15/18 10:07 Dose: 325 mg Furosemide (Lasix Iv*) 80 mg IV DAILY@0600 [facility] Last Admin: 12/16/18 05:54 Dose: 80 mg Metoprolol Succinate (Toprol Xl Tab*) 25 mg PO DAILY [facility] Last Admin: 12/15/18 10:06 Dose: 25 mg Pantoprazole Sodium (Protonix Tab*) 40 mg PO DAILY [facility] Last Admin: 12/15/18 10:08 Dose: 40 mg Rivaroxaban (Xarelto(*)) 20 mg PO DAILY [facility] Last Admin: 12/15/18 10:07 Dose: 20 mg Vital Signs - 8 hr 05/12/16/18 12/16/18 00:09 03:21 07:24 Temperature 98.9 F 97.5 F Pulse Rate 51 53 Respiratory 16 18 16 Rate Blood Pressure 106/40 108/47 (mmHg) O2 Sat by Pulse 99 Oximetry 12/16/18 07:34 Temperature 98.2 F Pulse Rate 50 Respiratory 16 Rate Blood Pressure 125/43 (mmHg) O2 Sat by Pulse 98 Oximetry Oxygen Devices in Use Now: None Appearance: Pleasant man ambulating the halls Eyes: No Scleral Icterus Ears/Nose/Mouth/Throat: NL Teeth, Lips, Gums Neck: NL Appearance and Movements; NL JVP Respiratory: Symmetrical Chest Expansion and Respiratory Effort, Clear to Auscultation Cardiovascular: NL Sounds; No Murmurs; No JVD, RRR, - - Conner Abdominal: NL Sounds; No Tenderness; No Distention, No Hepatosplenomegaly Lymphatic: No Cervical Adenopathy Extremities: - - 1+ pitting edema to blt LE Skin: No Rash or Ulcers Neurological: Alert and Oriented x 3 Result Diagrams: 12/12/18 04:37 12/16/18 05:57 Additional Lab and Data: Lab Results 12/10/18 12/10/18 12/10/18 Range/Units 18:05 18:05 18:05 WBC 7.0 (3.5-10.8) 10^3/uL RBC 3.11 L (4.18-5.48) 10^6 /uL Hgb 8.6 L (14.0-18.0) g/dL Hct 27 L (42-52) % MCV 86 (80-94) fL MCH 28 (27-31) pg MCHC 32 (31-36) g/dL RDW 19 H (10.5-15) % Plt Count 371 (150-450) 10^3/uL MPV 7.2 L (7.4-10.4) fL Neut % (Auto) 70.0 % Lymph % (Auto) 18.6 % [place] % (Auto) 9.1 % Eos % (Auto) 1.2 % Baso % (Auto) 1.1 % Absolute Neuts (auto) 4.9 (1.5-7.7) 10^3/ul Absolute Lymphs (auto) 1.3 (1.0-4.8) 10^3/ul Absolute Monos (auto) 0.6 (0-0.8) 10^3/ul Absolute Eos (auto) 0.1 (0-0.6) 10^3/ul Absolute Basos (auto) 0.1 (0-0.2) 10^3/ul Absolute Nucleated RBC 0.0 10^3/ul Nucleated RBC % 0.0 D-Dimer, Quantitative 260 H (Less Than 230) ng/mL Sodium 136 (135-145) mmol/L Potassium 4.5 (3.5-5.0) mmol/L Chloride 104 (101-111) mmol/L Carbon Dioxide 23 (22-32) mmol/L Anion Gap 9 (2-11) mmol/L BUN 33 H (6-24) mg/dL Creatinine 1.50 H (0.67-1.17) mg/dL Est GFR ( Amer) 54.6 (>60) Est GFR (Non-Af Amer) 45.1 (>60) BUN/Creatinine Ratio 22.0 H (8-20) Glucose 105 H (70-100) mg/dL Lactic Acid (0.5-2.0) mmol/L Calcium 9.0 (8.6-10.3) mg/dL Total Bilirubin 0.80 (0.2-1.0) mg/dL AST 45 H (13-39) U/L ALT 131 H (7-52) U/L Alkaline Phosphatase 121 H (34-104) U/L Troponin I 0.05 H* (<0.04) ng/mL C-Reactive Protein 33.74 H (<8.01) mg/L B-Natriuretic Peptide (<=100) pg/mL Total Protein 6.5 (6.4-8.9) g/dL Albumin 3.5 (3.2-5.2) g/dL Globulin 3.0 (2-4) g/dL Albumin/Globulin Ratio 1.2 (1-3) 12/10/18 12/10/18 Range/Units 18:05 18:05 WBC (3.5-10.8) 10^3/uL RBC (4.18-5.48) 10^6 /uL Hgb (14.0-18.0) g/dL Hct (42-52) % MCV (80-94) fL MCH (27-31) pg MCHC (31-36) g/dL RDW (10.5-15) % Plt Count (150-450) 10^3/uL MPV (7.4-10.4) fL Neut % (Auto) % Lymph % (Auto) % [place] % (Auto) % Eos % (Auto) % Baso % (Auto) % Absolute Neuts (auto) (1.5-7.7) 10^3/ul Absolute Lymphs (auto) (1.0-4.8) 10^3/ul Absolute Monos (auto) (0-0.8) 10^3/ul Absolute Eos (auto) (0-0.6) 10^3/ul Absolute Basos (auto) (0-0.2) 10^3/ul Absolute Nucleated RBC 10^3/ul Nucleated RBC % D-Dimer, Quantitative (Less Than 230) ng/mL Sodium (135-145) mmol/L Potassium (3.5-5.0) mmol/L Chloride (101-111) mmol/L Carbon Dioxide (22-32) mmol/L Anion Gap (2-11) mmol/L BUN (6-24) mg/dL Creatinine (0.67-1.17) mg/dL Est GFR ( Amer) (>60) Est GFR (Non-Af Amer) (>60) BUN/Creatinine Ratio (8-20) Glucose (70-100) mg/dL Lactic Acid 3.0 H* (0.5-2.0) mmol/L Calcium (8.6-10.3) mg/dL Total Bilirubin (0.2-1.0) mg/dL AST (13-39) U/L ALT (7-52) U/L Alkaline Phosphatase (34-104) U/L Troponin I (<0.04) ng/mL C-Reactive Protein (<8.01) mg/L B-Natriuretic Peptide > 1300 H (<=100) pg/mL Total Protein (6.4-8.9) g/dL Albumin (3.2-5.2) g/dL Globulin (2-4) g/dL Albumin/Globulin Ratio (1-3) Microbiology and Other Data: Microbiology 12/11/18 01:55 Nasal Screen MRSA (PCR) - Final Nasal Mrsa Not Detected Assess/Plan/Problems-Billing Assessment: 78M with HFrEF 45-50, bioprosthetic aoritc valve now with stenosis, afib on Xarelto/amidarone, recent GIB x 2 with negative EGD/c-scope, CAD s/p stent to LAD, fem-pop bypass and stent, presents with progressive SOB, LE edema, and significant weight gain in the context of outpatient furosemide being held after GI bleed in [place] earlier this month. - Patient Problems (1) Acute on chronic systolic (congestive) heart failure Current Visit: Yes Status: Acute Code(s): I50.23 - ACUTE ON CHRONIC SYSTOLIC (CONGESTIVE) HEART FAILURE SNOMED Code(s): 459161439 Comment: EF 50-55%, of bioprosthetic valve is [id number], unchanged for over 1 year. On furosemide 20mg daily at home but held in setting of GIB. - good response to furosemide 80mg IV bid; now q day, replete lytes prn - lisinopril 2.5mg held given EARLENE - metop suc 25mg daily - strict I&O; daily weights (2) A-fib Current Visit: Yes Status: Acute Code(s): I48.91 - UNSPECIFIED ATRIAL FIBRILLATION SNOMED Code(s): 13648196 Comment: Pt is in NSR. - cont amiodarone, metoprolol, and Xarelto - monitor for GIB (3) Anemia Current Visit: Yes Status: Acute Code(s): D64.9 - ANEMIA, UNSPECIFIED SNOMED Code(s): 528993394 Comment: Hgb 8.4. On Xarelto. Plavix for left iliac stent (May 2017) and LAD Stent is HELD given GIB this month in [place] and received 3 u pRBC. - monitor for recurrance of GI bleed - cont iron/vit C - consider restarting Plavix if no recurrence of bleed (4) CAD (coronary artery disease) Current Visit: Yes Status: Acute Code(s): I25.10 - ATHSCL HEART DISEASE OF [place] CORONARY ARTERY W/O ANG PCTRS SNOMED Code(s): 87919987 Comment: h/o STEMI and fem-pop bypass. Has stent in LAD. -continue metoprolol, statin -Plavix held this month given GIB; will need to figure out when able to restart (5) DVT prophylaxis Current Visit: No Status: Acute Code(s): JSA1894 - SNOMED Code(s): 300089588 Comment: on Tj (6) Full code status Current Visit: No Status: Acute Code(s): Z78.9 - OTHER SPECIFIED HEALTH STATUS SNOMED Code(s): 280080233 Status and Disposition: Possibly d/c
[2018-12-16] MEDS: Cholecalciferol TAB* 1000 UNITS PO SCH (09:18)
[2018-12-16] MEDS: Metoprolol Succinate XL TAB* 25 MG PO SCH (09:18)
[2018-12-16] MEDS: Rivaroxaban TAB(*) 20 MG TAB PO SCH (09:18)
[2018-12-16] MEDS: Pantoprazole TAB * 40 MG TAB PO SCH (09:19)
[2018-12-16] MEDS: Amiodarone TAB* 200 MG PO SCH (09:19)
[2018-12-16] MEDS: Ascorbic Acid TAB* 500 MG PO SCH (09:19)
[2018-12-16] MEDS: Ferrous Sulfate TAB* 325 MG PO SCH (09:19)
[2018-12-16] MEDS ORDERED: Furosemide IV* 10 MG/ML 10 ML VIAL (100 MG) IV ONE (13:18)
--- NOTE | 2018-12-16 15:20 | DS ---
CC: Dr. Matthias Welch; Dr. Willingham* DISCHARGE SUMMARY: DATE OF ADMISSION: 12/10/18 DATE OF DISCHARGE: 12/16/18 DISPOSITION AT DISCHARGE: Stable to return to home. PRIMARY DIAGNOSIS: Acute exacerbation of heart failure with reduced ejection fraction. SECONDARY DIAGNOSES: 1. Atrial fibrillation, on Xarelto, status post aortic valve replacement with moderate stenosis. 2. Heart failure with reduced ejection fraction of 45% to 50%. 3. Coronary artery disease, status post stent to LAD. 4. Peripheral arterial disease, status post fem-pop bypass. 5. Recent gastrointestinal bleed where he was hospitalized out of state in [place] in the first week of November of 2018, status post recent blood transfusion in that hospitalization and discontinuation of Plavix. MEDICATIONS ON DISCHARGE: 1. Furosemide 40 mg p.o. b.i.d. 2. Amiodarone 200 mg p.o. daily. 3. Atorvastatin 40 mg p.o. daily. 4. Vitamin D 1000 units p.o. daily. 5. Metoprolol succinate 25 mg p.o. daily. 6. Pantoprazole 40 mg p.o. daily. 7. Rivaroxaban 20 mg p.o. daily. 8. Lisinopril 2.5 mg p.o. daily. Medication changes on this hospitalization include: 1. Furosemide 40 mg p.o. b.i.d., which is a change from his furosemide 20 mg p.o. q.a.m. 2. Continuation of holding of clopidogrel 75 mg p.o. daily. 3. Lowering of metoprolol succinate to 25 mg p.o. daily from 50 mg p.o. daily. HISTORY OF PRESENT ILLNESS AND HOSPITAL COURSE: This is a 78-year-old male with above past medical history, who presented to the emergency room on shortly after he returned from a trip to [place] with complaint of progressive shortness of breath and increased bilateral lower extremity edema. The patient had gone to visit his son in [place] and unfortunately had dark black tarry stools for 3 to 4 days there, presented to the hospital and was found to have GI bleed and needing blood transfusion of a total of 3 units. He was started on pantoprazole for presumed upper GI bleed and discontinued from Plavix, although continued on Xarelto. Furthermore, they stopped his furosemide during this hospitalization and he was discharged back to home after he was stable during that hospitalization. When he returned to home, he progressively had worsening dyspnea on exertion as well as bilateral lower extremity edema. His tried to restart his oral Lasix at 20 mg daily at first, then twice a day, but he continued to have progressive shortness of breath and worsening edema and thus they presented to the hospital for further evaluation. In the emergency room, he was found to be grossly volume overloaded with 3+ pitting edema and scrotal edema and 20 pounds above his baseline weight, which is close to 173 pounds. He was admitted for acute on chronic exacerbation of his heart failure with reduced ejection fraction with known EF of 45% to 50%. His hospital course by problem is as follows: 1. Acute on chronic systolic heart failure. The patient was placed on IV Lasix twice a day and diuresed successfully over the course of his hospitalization to return to his dry weight of 173 pounds. He had no oxygen requirements and was able to tolerate ambulation. He still has 1+ pitting edema on day of discharge and thus he was advised to continue 40 mg p.o. twice daily oral Lasix until his mild 1+ pitting edema improved. Furthermore, they have a scale at home and follow weight based dosing of their diuretics and know to start twice day dosing when dry weight is greater than 175 pounds. 2. Recent GI bleed. This was presumed to be upper, started on Protonix. The patient will continue to hold his Plavix for a total of a month unless primary care or Cardiology feel necessary to restart. The patient was discharged with anemia. He has stable hemoglobin of 8.3 and can be started on iron supplementation as outpatient while he continues to recover from his recent GI bleed. He has no tarry stools here. He has normal and stable CBC on day-to- day draws other than a stable microcytic anemia, which is reflecting his recent GI bleed. 3. Atrial fibrillation, on anticoagulation. The patient is continued on Xarelto. He continues on his amiodarone. He has significant bradycardia. In this hospitalization, his metoprolol is changed from 50 mg to 25 mg succinate daily. He tolerated this well. 4. Known aortic stenosis of a bioprosthetic valve. He had a repeat echocardiogram done during this hospitalization that showed ejection fraction of 50% to 55%, mild hypokinesis of the mid anteroseptal and mid inferoseptal myocardium, aortic valve [id number] stenosis with mean systolic gradient of 35, which compared to 2014 echocardiogram, aortic valve showed a mean gradient of 21 mmHg for the gradient. This is consistent with mild worsening of his known aortic stenosis and he follows regularly with Dr. Willingham and to be followed up as an outpatient. 5. History of CAD. He has a history of STEMI and fem-pop bypass. He has a stent in the left LAD. We continue his metoprolol and statin. Again, his Plavix is held in the setting of GI bleed and we counseled that he should restart a month after his GI bleed, which will be in 2 weeks status post discharge although and this could be restarted at primary care or credit review analyst' s discretion. LABS AND STUDIES DONE DURING THIS HOSPITALIZATION: Included echocardiogram done on 12/13/18 with above findings as noted in the problem under a bioprosthetic valve. Chest thorax CTA was done on 12/10/18, which showed no pulmonary emboli and right greater than left pleural effusions with mild volume loss. A venous Doppler study was done on 12/10/18 showed no acute findings and no evidence of DVT and a chest x- ray was done on 12/10/18, which shows prominence of interstitial markings and small bilateral pleural effusions. On day of discharge, labs show H and H of 8.3 and 26, which is stable from his admission. BMP shows sodium of 136, potassium 4.3, chloride 101, bicarb dioxide 26, BUN 35, and creatinine 1.41. PHYSICAL EXAMINATION ON DAY OF DISCHARGE: The patient is pleasant, well appearing, no acute distress, ambulating in the halls without oxygen needs. Lungs are clear to auscultation bilaterally. Heart is regular rate and rhythm other than mild bradycardic to the 50s with 2/6 murmur heard best in right upper sternal border and no other acute findings. Bilateral lower extremities show 1+ pitting edema to mid fonseca. Belly is soft, nontender, nondistended. ITEMS TO FOLLOW UP ON STATUS POST DISCHARGE: 1. Heart failure with reduced ejection fraction. The patient had acute systolic heart failure exacerbation secondary to holding diuresis from prior GI bleed earlier this month. He has resumed his diuresis and this can be weight adjusted and followed up with primary care and Cardiology. The patient and his have a good understanding of when to use twice daily Lasix versus ones daily Lasix. He might benefit from home care nursing in the future. 2. Anemia. This is reactive in the setting of acute blood loss. We expect that this will continue to improve. He may benefit from iron supplementation in the future. 3. Mild EARLENE. The patient has mild EARLENE with creatinine of 1.4, baseline around creatinine of 1.2 on discharge, this is most likely reflecting the diuresis he received here in the hospitalization and he is making urine freely with no effect on his electrolytes. This could be monitored as an outpatient. 4. Aortic stenosis. It appears that his aortic stenosis has progressed from mild- to-moderate to [id number] stenosis per his echocardiogram and this could be followed with Dr. Willingham as an outpatient. 5. CAD. The patient's Plavix is held in the setting of known GI bleed and decision to restart it can be made at discretion of primary care and Cardiology , although we counseled the patient to hold for a total of 1 month, which would be continuing to hold for 2 days, status post discharge. On day of discharge, plan of care was reviewed with the patient and his family and they have no further questions. They understand to follow up with primary care and Cardiology to continue to discuss best management of the patient's heart failure. They known to return to the emergency room if he has acute worsening shortness of breath, chest pain or any other new symptoms. TIME SPENT: Forty minutes was spent in the planning of this discharge with over half of that was spent directly at the bedside of the patient providing direct patient care. If there are any questions about the care of this patient , please do not hesitate to reach out to the hospitalist team at [facility]. [id number]/CPS #: [id number] SULAIMAN
[2018-12-16 15:50] VITALS: BP 107/38
== END 2018-12-16 15:14 | disposition home or self-care (01) | DRG 292 ==
LOC: ED 16:19 → MEDTELE 23:02 → OBSVTOIN 12-11 15:56
PROVIDERS: ADMIT Internal Medicine; ATTEND Internal Medicine
DX: I11.0 Hypertensive heart disease with heart failure (principal); T82.897A Other specified complication of cardiac prosthetic devices, implants and grafts, initial encounter; D62 Acute posthemorrhagic anemia; N17.9 Acute kidney failure, unspecified; K92.2 Gastrointestinal hemorrhage, unspecified; J98.11 Atelectasis; I48.91 Unspecified atrial fibrillation; I25.10 Atherosclerotic heart disease of native coronary artery without angina pectoris; Y71.2 Prosthetic and other implants, materials and accessory cardiovascular devices associated with adverse incidents; Y92.9 Unspecified place or not applicable; I25.2 Old myocardial infarction; T50.2X6A Underdosing of carbonic-anhydrase inhibitors, benzothiadiazides and other diuretics, initial encounter; R79.89 Other specified abnormal findings of blood chemistry; E78.00 Pure hypercholesterolemia, unspecified; M19.91 Primary osteoarthritis, unspecified site; I27.20 Pulmonary hypertension, unspecified; E78.5 Hyperlipidemia, unspecified; I50.43 Acute on chronic combined systolic (congestive) and diastolic (congestive) heart failure; Z85.51 Personal history of malignant neoplasm of bladder; Z87.442 Personal history of urinary calculi; Z72.89 Other problems related to lifestyle; Z79.01 Long term (current) use of anticoagulants; Z95.5 Presence of coronary angioplasty implant and graft; Z82.49 Family history of ischemic heart disease and other diseases of the circulatory system; Z87.891 Personal history of nicotine dependence; Z87.19 Personal history of other diseases of the digestive system; Z91.128 Patient's intentional underdosing of medication regimen for other reason; Z91.030 Bee allergy status
CPT/HCPCS: 36415; 71046; 71275; 80048; 80053; 80061; 80076; 83605; 83735; 83880; 84484; 85025; 85027; 85379; 86140; 87641; 93005; 93306; 99285; A9270-GY; G0378; G8978-GP-CI; G8979-GP-CI; G8980-GP-CI; J1940; J3475; Q9967

== ENCOUNTER 2019-02-03 13:32 | Inpatient (IN) | payer MEDICARE, OTHER ==
--- OUTSIDE RECORDS SUMMARY | 2019-02-03 13:40 | XMS REPORT | Continuity of Care Document ---
:1940 External Reference #:[id number] Author Name Libia Rolle Care Team Providers Name Role Phone Matthias Welch III, MD Primary Care Physician Unavailable Payers Date Identification Numbers Payment Provider Subscriber Effective: 2005 Policy Number: [id number] Medicare Jose Juan Choe PayID: [id number] [address] [place] [address] Effective: 2005 Policy Number: [id number] [facility] Jose Juan Choe Group Number: [id number] [address] PayID: [id number] [place] [address] Expires: 2017 Policy Number: [id number] [facility] Jose Juan Choe PayID: [id number] [address] [place] [address] Problems Active Problems Provider Date Aortic valve [...] Mother due to Post Op hx of [place]- from 62 Years) complications from CABG : (age Paternal Grandfather due to [place] 70 Years) Social History Type Date Description Comments Sex Unknown Marital Status Lives With Spouse Occupation Retired field machinist Tobacco Use Start: Unknown End: Former Cigarette smoked for 25 Unknown Smoker 1 1/2 Packs years-quit 1982 Daily ETOH Use Rarely consumes beer Tobacco Use Start: Unknown End: Patient is a former Unknown smoker Recreational Drug Use Denies Drug Use Smoking Status Reviewed: 02/01/19 Patient is a former smoker Exercise Type/Frequency Exercises rarely Allergies, Adverse Reactions, Alerts Active Allergies Reaction Severity Comments Date NKDA 12/31/2007 Bee Sting 12/25/2010 Medications Active Medications SIG Qnty Indications Ordering Date Provider Lasix 1 tab in the 90tabs Nellie Nelson, 02/01/2019 80mg Tablets morning and 1/2 N.P. tab at 5pm Xarelto 1 by mouth every 90tabs Nellie Nelson, 01/08/2019 15mg Tablets day N.P. Metoprolol Succinate 1 by mouth every Qutaybchris SGladys 12/22/2018 ER day Mateo Willingham 25mg Tablets ER 24HR Epipen use one time as 3units Matthias Alvares 02/19/2010 0.3mg/0.3ML Device directed Mateo Welch [facility] Iron Unknown 240(27Fe) mg Tablets Aspirin 81 1 by mouth every Unknown 81mg Tablets day DR Singh Calcium Take 1 Tablet By 90tabs Matthias Alvares 40mg Mouth Every Day Mateo Welch Tablets Lisinopril Take 1 Tablet By 30tabs Nellie Nelson, 2.5mg Tablets Mouth Every Day N.P. Vitamin D3 1 by mouth every Unknown 1000Unit day Tablets Pantoprazole Sodium 1 by mouth every 90tabs Qutaybeh S. 40mg day Mateo Willingham Tablets DR Acetaminophen ER 1 tab by mouth q4 Unknown 650mg hours as needed Tablets ER pain Tramadol HCL 1-2 tablets every Rebekah III, 50mg Tablets 6 hours as needed Matthias Alvares MD Amiodarone HCL 1/2 tab by mouth 90tabs Qutaybeh S. 200mg every day Mateo Willingham Tablets History Medications Lasix 1 by mouth twice a Nellie S. 01/25/2019 - 40mg Tablets day Omar, N.P. 02/01/2019 Lasix 1 tab by mouth every 90tabs Nellie S. 01/12/2019 - 80mg Tablets other day, alternate Omar, N.P. 01/25/2019 with 1/2 tablet by mouth on opposite days Furosemide Take 1/2 tab by 90tabs Nellie S. 08/27/2018 - 40mg Tablets mouth daily Omar, N.P. 12/10/2018 Xarelto 1 by mouth every day 90tabs Nellie S. 12/04/2017 - 20mg Tablets Omar, N.P. 01/08/2019 Eliquis take 1 by mouth 120tab Nellie S. 11/28/2017 - 5mg Tablets twice a day s Omar, N.P. 12/02/2017 Linezolid one by mouth twice a 42tabs M60.06 Gm DGladys 11/10/2017 - 600mg Tablets day- PT no longer 1 Macqueen, 12/02/2017 taking M.D. Metoprolol Succinate ER 1 by mouth every day 90tabs Qutaybeh S. 2017 - 50mg Maghaydrandal, 12/22/2018 Tablets ER 24HR M.D. Lasix 1 tab by mouth daily 180tab Nellie S. 10/27/2017 - 40mg Tablets alternating with 2 s Omar, N.P. 01/12/2019 tabs daily Colcrys take 2 tabs by mouth 3tabs Matthias Alvares 08/25/2017 - 0.6mg Tablets on day 1 then 1 tab Matoe Welch 10/27/2017 1hour later Prednisone take once daily 7tabs Matthias Alvares 08/25/2017 - 20mg Tablets Mateo Welch 09/10/2017 Lisinopril 1 by mouth daily 90tabs I10 Qutaybeh S. 06/10/2014 - [facility] M.DGladys Lisinopril 2 by mouth twice a 360tab 401.0 Qutaybeh S. 05/19/2014 - 5mg Tablets day s Maghaydah, 06/10/2014 M.D. Lisinopril 1 by mouth every day Qutaybeh S. 04/14/2014 - [facility] 05[facility] M.DGladys Hydrochlorothiazide 1 by mouth every day 90tabs Qutaybeh S. 01/08/2013 - 25mg Maghaydah, 07/17/2017 Tablets M.D. Hydrochlorothiazide 1 po qd 90tabs Qutaybeh S. 01/08/2013 - 25mg Maghaydah, 01/08/2013 Tablets M.D. Hydrochlorothiazide 1 po qd 90tabs Qutaybeh S. 01/08/2013 - 25mg Maghaydah, 01/08/2013 Tablets M.D. Hydrochlorothiazide 1 po qd 90tabs Qutaybeh S. 10/15/2012 - 25mg Maghaydah, 01/08/2013 Tablets M.DGladys Valtrex 1 po q8h 21tabs 782.1 Matthias Alvares 04/23/2012 - 1gm Tablets Mateo Welch 01/08/2013 Hydrochlorothiazide 1 po qd 90tabs Qutaybeh S. 06/01/2010 - 25mg Maghaydah, 10/15/2012 Tablets M.DGladys Chlorhexidine Gluconate 15 ml swish/spit po 1month Matthias Alvares 01/30/2010 - 0.12% until bottle is flores Mateo Welch 02/01/2010 Solution gone. Norvasc 1 po qd 90tabs Qutaybeh S. 12/26/2009 - 10mg Tablets [facility], 12/16/2011 Mateo Atenolol 1/2 po bid Matthias EGladys 03/30/2009 - 50mg Tablets Mateo Welch 01/15/2010 Norvasc 2 po qd 90tabs Qutaybeh S. 03/22/2009 - 5mg Tablets Maghaydah, 12/26/2009 Mateo Centrum Silver 1 po qd Qutaybeh S. 03/22/2009 - Tablets haydah, 01/30/2010 Mateo Ramipril 1 po qd 90caps Matthias E. 12/29/2008 - 10mg Capsules Mateo Welch 03/22/2009 Diovan 1 po qd 90tabs Matthias E. 12/22/2008 - 160mg Tablets Mateo Welch 12/29/2008 Diovan 1 po qd 90tabs Matthias Moreno. 09/26/2008 - 80mg Tablets Mateo Welch 12/22/2008 Simvastatin 1 by mouth every day 90tabs Qutaybchris S. 12/31/2007 - 20mg Tablets Tarsha, 07/17/2017 Mateo HCTZ 1 po qd 90unit Matthias Alvares 12/31/2007 - 25mg. nicholas Welch M.D. 03/30/2009 Atenolol 1 po qd 90tabs Matthias Alvares 12/31/2007 - 50mg Tablets Mateo Welch 03/30/2009 Diovan 1 PO qd 90tabs Matthias Alvares 12/31/2007 - 80mg Tablets Mateo Welch 12/31/2007 Naprosyn 1 po bid prn 180tab Matthias Moreno. 12/31/2007 - 500mg Tablets nicholas Welch M.D. 01/30/2010 Lisinopril 1 po qd 90tabs Matthias Alvares 12/31/2007 - 20mg Tablets Mateo Welch 09/26/2008 Coumadin 1 tablet by mouth 90tabs Qutaybeh S. - 4mg Tablets every at night as Maghaydah, 12/19/2017 directed for Mateo dvt,pad,cad Lasix 1 by mouth every day 90tabs Qutaybeh S. - 20mg Tablets [facility], 10/27/2017 M.D. Lisinopril 1 by mouth every day Unknown - 2.5mg Tablets at bedtime for HTN 08/13/2017 Hold for SBP <100 Lovenox inject 85mg Unknown - 100mg/ml Solution subcutaneously every 08/13/2017 12 hours for DVT Plavix 1 by mouth every day 90tabs Qutaybeh S. - 75mg Tablets [facility], 12/10/2018 M.DGladys Metoprolol Succinate ER 1 by mouth every day 90tabs Qutaybeh S. - 100mg [facility], 10/27/2017 Tablets ER 24HR M.D. Vitamin D-400 1 by mouth every day Unknown - 400Unit Tablets 11/03/2017 Cefazolin Sodium 2 gm iv every 8 Unknown - 1gm Solution hours x 42 total 12/25/2016 Rec days through [facility] Metoprolol Succinate ER 1 by mouth every day Unknown - 50mg 11/03/2017 Tablets ER 24HR Senna S 2 tabs by mouth in Unknown - 8.6-50mg Tablets the morning as 04/06/2018 needed, constipation Metoprolol Succinate ER 1/2 tablet by mouth Unknown - 100mg every day 11/03/2017 Tablets ER 24HR Clopidogrel Bisulfate 1 by mouth every day Unknown - 75mg 12/22/2018 Tablets Colace 1 tab by mouth q 12 Unknown - 100mg Capsules hrs as needed 10/27/2017 Carvedilol 1 by mouth twice a 180tab Qutaybeh S. - 3.125mg Tablets day s [facility], 09/05/2017 M.DGladys Cilostazol 1 tablet twice a day Unknown - 100mg 07/17/2017 Lisinopril 1 by mouth every day 90tabs Qutaybeh S. - 5mg Tablets (eveing) [facility], 04/14/2014 M.DGladys Amlodipine Besylate 1 by mouth every day 90tabs Qutaybeh S. - 10mg martinikky, 07/17/2017 Tablets MShemar Tylenol Arthritis Pain 1 po qd 100tab Unknown - 650mg s 12/16/2011 Tablets ER Vitamin C 500 mg qd for 1 Unknown - month 02/01/2010 K Dur 1 qd for 10 days Unknown - 10Meq 02/01/2010 Metoprolol Tartrate 1 by mouth twice a 180tab Qutaybeh S. - 25mg day s Tarsha, 07/17/2017 Tablets M.Quin Lasix 1 po qd for 10 days 30tabs Unknown - 40mg Tablets 01/08-01/1802/01/2010 Ferrous Sulfate 1 po bid for 1month 90tabs Unknown - 324mg Tablets post op 06/01/2010 Aspir-81 1 by mouth every day 90tabs Qutaybchris S. - 81mg Tablets DR Willingham, 08/25/2017 Mateo Vit E one po qd Unknown - 1000mg 01/30/2010 Immunizations CPT Code Status Date Vaccine Lot # [id number] Given 05/09/2016 Fluzone High Dose 58592 Given 02/23/2015 Pneumococcal Conjugate Vaccine 13 Valent For [id number] Intramuscular Use 68239 Given 12/16/2011 Tdap - Tetanus/Diptheria/Acellular Pertussis [id number] 06890 Given 12/31/2007 Pneumonia Vaccine [id number] 79346 Given 11/22/1999 Pneumovax (History By Patient) [id number] 88369 Given 04/05/1999 Td (History By Patient) Vital Signs Date Vital Result Comment 02/01/2019 2:32pm Height 67 inches 5'7" Weight 177.25 lb Heart Rate 64 /min BP Systolic 116 mmHg ule reg cuff BP Diastolic 64 mmHg ule reg cuff O2 % BldC Oximetry 98 % BMI (Body Mass Index) 27.8 kg/m2 Ejection Fraction 50-55% Echo 12/14/18 02/01/2019 1:04pm Height 67 inches 5'7" Weight 178.00 lb Heart Rate 61 /min BP Systolic Sitting 108 mmHg BP Diastolic Sitting 51 mmHg BMI (Body Mass Index) 27.9 kg/m2 12/31/2018 10:45am Height 67 inches 5'7" Weight 179.25 lb Clothes/shoes Heart Rate 58 /min Radial BP Systolic Sitting 114 mmHg Rue reg cuff BP Diastolic Sitting 60 mmHg Rue reg cuff O2 % BldC Oximetry 95 % Ra BMI (Body Mass Index) 28.1 kg/m2 Ejection Fraction 50-55% Echo 12/14/2018 12/22/2018 8:52am Height 67 inches 5'7" Weight 175.00 lb Heart Rate 55 /min BP Systolic Sitting 113 mmHg BP Diastolic Sitting 52 mmHg BMI (Body Mass Index) 27.4 kg/m2 12/10/2018 2:29pm Height 67 inches 5'7" Weight [...] Index) 29.6 kg/m2 Ejection Fraction 40-45% 07/13 [facility] Echo 06/03/2017 9:43am Height 66.25 inches [...] Test Result H/L Range Note Laboratory test 01/22/2019 [facility] Pathologist Review (SEE NOTE) 1 finding [address] [place] [address] [phone] Cell Morphology 01/22/2019 [facility] Hypochromasia 2+ [address] [place] [address] [phone] Polychromasia 1+ Anisocytosis 2+ Elliptocyte 1+ Basic Metabolic Panel 01/22/2019 [facility] Sodium 137 mmol/L N 135-145 [address] [place] [address] [phone] Potassium 4.4 mmol/L N 3.5-5.0 Chloride 106 mmol/L N 101-111 Co2 Carbon Dioxide 23 mmol/L N 22-32 Anion Gap 8 mmol/L N 2-11 Glucose 164 mg/dL High 70-100 Blood Urea Nitrogen 34 mg/dL High 6-24 Creatinine 1.39 mg/dL High 0.67-1.17 BUN/Creatinine Ratio 24.5 High 8-20 Calcium 9.1 mg/dL N 8.6-10.3 Egfr Non- 49.2 >60 Egfr 59.5 >60 2 Laboratory test 01/22/2019 [facility] B-Type 935 pg/mL High <= 100 3 finding [address] [facility] [place] [address] Peptide BNP [phone] CBC Auto Diff 01/22/2019 [facility] White Blood 6.2 N 3.5- 10.[address] Count 10^3/[place] [address] [phone] Red Blood Count 3.80 10^6/uL Low 4.18-5.48 Hemoglobin 9.8 g/dL Low 14.0-18.0 Hematocrit 31 % Low 42-52 Mean Corpuscular Volume 80 fL N 80-94 Mean Corpuscular Hemoglobin 26 pg Low 27-31 Mean Corpuscular HGB Conc 32 g/dL N 31-36 Red Cell Distribution Width 23 % High 10-15 Platelet Count 282 10^3/uL N 150-450 Mean Platelet Volume 7.4 fL N 7.4-10.4 Abs Neutrophils 4.3 10^3/uL N 1.5-7.7 Abs Lymphocytes 1.1 10^3/uL N 1.0-4.8 Abs Monocytes 0.6 10^3/uL N 0-0.8 Abs Eosinophils 0.2 10^3/uL N 0-0.6 Abs Basophils 0.0 10^3/uL N 0-0.2 Abs Nucleated RBC 0.0 10^3/uL Granulocyte % 69.2 % Lymphocyte % 17.9 % Monocyte % 9.6 % Eosinophil % 2.9 % Basophil % 0.4 % Nucleated Red Blood Cells % 0.0 Thyroid Panel 01/22/2019 [facility] Free T4 (Free 1.00 ng/dL N 0.61-1.[address] Thyroxine) [place] [address] [phone] Thyroxine 7.58 g/dL N 6.09-12.23 5 TSH (Thyroid Stim Horm) 4.84 mcIU/mL N 0.34-5.60 6 Laboratory test 01/22/2019 [facility] Magnesium 2.1 mg/dL N 1.9-2.7 [address] [place] [address] [phone] Laboratory test 12/22/2018 [facility] B-Type > 1300 High <= [address] Natriuretic pg/[place] [address] Peptide BNP [phone] Basic Metabolic 12/22/2018 [facility] Sodium 139 N 135-[address] mmol/[place] [address] [phone] Chloride 104 mmol/L N 101-111 Co2 Carbon Dioxide 27 mmol/L N 22-32 Glucose 127 mg/dL High 70-100 Blood Urea Nitrogen 42 mg/dL High 6-24 Creatinine 1.58 mg/dL High 0.67-1.17 BUN/Creatinine Ratio 26.6 High 8-20 Calcium 9.4 mg/dL N 8.6-10.3 Egfr Non- 42.5 >60 Egfr 51.4 >60 8 Potassium 5.4 mmol/L High 3.5-5.0 Anion Gap 8 mmol/L N 2-11 Comp Metabolic Panel 12/10/2018 [facility] Sodium 136 mmol/L N 135-[address] [place] [address] [phone] Potassium 4.5 mmol/L N 3.5-5.0 Chloride 104 mmol/L N 101-111 Co2 Carbon Dioxide 23 mmol/L N 22-32 Anion Gap 9 mmol/L N 2-11 Glucose 105 mg/dL High 70-100 Blood Urea Nitrogen 33 mg/dL High 6-24 Creatinine 1.50 mg/dL High 0.67-1.17 BUN/Creatinine Ratio 22.0 High 8-20 Calcium 9.0 mg/dL N 8.6-10.3 Total Protein 6.5 g/dL N 6.4-8.9 Albumin 3.5 g/dL N 3.2-5.2 Globulin 3.0 g/dL N 2-4 Albumin/Globulin Ratio 1.2 N 1-3 Total Bilirubin 0.80 mg/dL N 0.2-1.0 Alkaline Phosphatase 121 U/L High 34-104 Alt 131 U/L High 7-52 Ast 45 U/L High 13-39 Egfr Non- 45.1 >60 Egfr 54.6 >60 9 Laboratory test 12/10/2018 [facility] C Reactive 33.74 mg/L High <8.[address] [place] [address] [phone] Troponin-I (TnI) 0.05 ng/mL High <0.04 10 D Dimer Quantitative 260 ng/mL High Less Than 230 11 B-Type Natriuretic Peptide BNP > 1300 pg/mL High <=100 Laboratory test 12/10/2018 [facility] Lactic Acid 3.0 mmol/L High 0.5-2.0 [address] [place] [address] [phone] CBC Auto Diff 12/10/2018 [facility] White Blood 7.0 10^3/uL N 3.5-10.[address] [place] [address] [phone] Red Blood Count 3.11 10^6/uL Low 4.18-5.48 Hemoglobin 8.6 g/dL Low 14.0-18.0 Hematocrit 27 % Low 42-52 Mean Corpuscular Volume 86 fL N 80-94 Mean Corpuscular Hemoglobin 28 pg N 27-31 Mean Corpuscular HGB Conc 32 g/dL N 31-36 Red Cell Distribution Width 19 % High 10.5-15 Platelet Count 371 10^3/uL N 150-450 Mean Platelet Volume 7.2 fL Low 7.4-10.4 Abs Neutrophils 4.9 10^3/uL N 1.5-7.7 Abs Lymphocytes 1.3 10^3/uL N 1.0-4.8 Abs Monocytes 0.6 10^3/uL N 0-0.8 Abs Eosinophils 0.1 10^3/uL N 0-0.6 Abs Basophils 0.1 10^3/uL N 0-0.2 Abs Nucleated RBC 0.0 10^3/uL Granulocyte % 70.0 % Lymphocyte % 18.6 % Monocyte % 9.1 % Eosinophil % 1.2 % Basophil % 1.1 % Nucleated Red Blood Cells % 0.0 Laboratory 12/10/2018 [facility] Troponin-I (TnI) 0.05 High < 0.04 13 test finding [address] ng/[place] [address] [phone] Laboratory 05/01/2018 [facility] Uric Acid 7.2 N 4.4-7.6 14, test finding [address] mg/dL 15 [place] [address] [phone] Lipid Profile 05/01/2018 [facility] Triglycerides 103 16 (Trig/Chol/HDL [address] mg/dL ) [place] [address] [phone] Cholesterol 123 mg/dL 17 HDL Cholesterol 44.5 mg/dL 18 LDL Cholesterol 58 mg/dL 19 Laboratory test finding 04/28/2018 [facility] [employer] [facility] Hemoglobin A1c 6.2 5-7 Laboratory test finding 04/23/2018 [facility] Alt 17 U/L N 7- 52 [address] [place] [address] [phone] Ast (Sgot) 20 U/L N 13-39 Basic Metabolic Panel 04/23/2018 [facility] Sodium 138 mmol/L N 135-145 [address] [place] [address] [phone] Potassium 4.8 mmol/L N 3.5-5.0 Chloride 106 mmol/L N 101-111 Co2 Carbon Dioxide 27 mmol/L N 22-32 Anion Gap 5 mmol/L N 2-11 Glucose 133 mg/dL High 70-100 Blood Urea Nitrogen 23 mg/dL N 6-24 Creatinine 1.14 mg/dL N 0.67-1.17 BUN/Creatinine Ratio 20.2 High 8-20 Calcium 9.2 mg/dL N 8.6-10.3 Egfr Non- 62.0 >60 Egfr 75.0 >60 20 Laboratory test 04/23/2018 [facility] TSH (Thyroid 3.79 N 0.34 -5.60 finding [address] [facility] Stim Horm) mcIU/[place] [address] [phone] Laboratory test 11/03/2017 [facility] C Reactive 13.31 mg/L High < 5.00 21 finding [facility] [place] [address] [phone] Comp Metabolic 11/03/2017 [facility] Sodium 134 mmol/L Low 139 -145 [place] [address] [phone] Potassium 3.9 mmol/L N 3.5-5.0 Chloride 98 [...] Egfr Non- 69.8 >60 Egfr 89.8 >60 22 CBC Auto Diff 11/03/2017 [facility] White Blood 6.4 10^3/uL N 3.5-10.[address] [place] [address] [phone] Red Blood Count 3.85 10^6/uL Low 4.0-5.4 [...] Blood Cells % 0 Laboratory test 10/31/2017 [facility] Surgical SEE RESULT [address] [place] [address] [phone] Laboratory test 10/24/2017 [facility] Tissue Culture SEE RESULT [address] & [place] [address] [phone] Inr/Protime 10/10/2017 [facility] Inr 1.62 High 0.77- [address] 1.02 [place] [address] [phone] CBC Auto Diff 09/22/2017 [facility] White Blood 10.9 High 3.5- [address] Count 10^3/uL 0.8 [place] [address] [phone] Red Blood Count 3.46 10^6/uL Low 4.0-5.4 [...] Red Blood Cells % 0 Inr/Protime 09/22/2017 [facility] Inr 2.37 High 0.77-1.[address] [place] [address] [phone] Laboratory test 09/22/2017 [facility] Rapid SEE RESULT [address] [place] [address] B Antigen [phone] Rapid Influenza 09/22/2017 [facility] Influenza A NEGATIVE Negative 26 A & B Molecular [address] [place] [address] [phone] Influenza B Molecular NEGATIVE Negative Laboratory test 09/22/2017 [facility] MRSA/S. SEE RESULT [address] [place] [address] PCR [phone] Wound 09/22/2017 [facility] Wound/Misc SEE RESULT 28 Culture/Sensi [address] [place] [address] Stain [phone] Laboratory test 09/22/2017 [facility] Troponin-I 0.08 ng/mL High <0.04 [address] (TnI) [place], [place] [id number] [phone] Comp Metabolic 09/22/2017 [facility] Sodium 126 mmol/L Low 133 -[address] [place] [address] [phone] Potassium 4.4 mmol/L N 3.5-5.0 Chloride 94 [...] Egfr Non- 62.1 >60 Egfr 79.9 >60 30 Laboratory test 09/22/2017 [facility] Partial 37.1 High 26.0- 36.[address] [place] [address] PTT [phone] Lactic Acid 1.7 mmol/L N 0.5-2.0 31 Liver Function 09/19/2017 [facility] Total Protein 6.8 g/dL N 6.4-8.[address] [place] [address] [phone] Albumin 3.6 g/dL N 3.2-5.2 Globulin 3.2 g/dL N 2-4 Albumin/Globulin Ratio 1.1 N 1-3 Total Bilirubin 0.70 mg/dL N 0.2-1.0 Direct Bilirubin 0.20 mg/dL High 0.03-0.18 Indirect Bilirubin 0.5 mg/dL N 0.3-1.0 Alkaline Phosphatase 71 U/L N 34-104 Alt 9 U/L N 7-52 Ast 12 U/L Low 13-39 Laboratory test 09/19/2017 [facility] TSH (Thyroid 3.11 N 0.34 -5.[address] Stim Horm) mcIU/[place] [address] [phone] Inr/Protime 09/19/2017 [facility] Inr 2.23 High 0.77-1.[address] [place] [address] [phone] Inr/Protime 09/11/2017 [facility] Inr 3.18 High 0.77-1.[address] [place] [address] [phone] CBC Auto Diff 07/20/2017 [facility] White Blood 8.8 10^3/uL N 3.5-10.[address] [place] [address] [phone] Red Blood Count 2.67 10^6/uL Low 4.0-5.4 [...] Blood Cells % 0 Laboratory test 07/20/2017 [facility] Troponin-I 0.02 ng/mL < 0.[address] (TnI) [place] [address] [phone] Comp Metabolic 07/20/2017 [facility] Sodium 127 mmol/L Low 133 -[address] [place] [address] [phone] Potassium 4.7 mmol/L N 3.5-5.0 Chloride 95 [...] Egfr Non- 42.9 >60 Egfr 55.2 >60 33 Laboratory test 07/20/2017 [facility] Partial 42.0 High 26.0- 36.[address] [place] [address] PTT [phone] Lactic Acid 2.2 mmol/L High 0.5-2.0 34 Inr/Protime 07/20/2017 [facility] Inr 2.32 High 0.77-1.[address] [place] [address] [phone] Laboratory test 06/03/2017 [facility] [employer] [facility] Hemoglobin A1c 6.3 5-7 finding Lipid Profile 05/26/2017 [facility] Triglycerides 132 N 36 (Trig/Chol/HDL) [address] mg/dL [place], [place] [address] [phone] Cholesterol 174 mg/dL N 37 HDL Cholesterol 41.1 mg/dL N 38 LDL Cholesterol 107 mg/dL N 39 Comp Metabolic Panel 05/26/2017 [facility] Sodium 134 mmol/L N 133-145 [address] [place] [address] [phone] Chloride 100 mmol/L Low 101-111 Co2 Carbon [...] 52.5 N >60 Egfr 67.5 N >60 40 Potassium 5.3 mmol/L High 3.5-5.0 Anion Gap 5 mmol/L N 2-11 Basic Metabolic Panel 02/04/2017 [facility] Sodium 133 mmol/L N 133-145 [address] [place] [address] [phone] Potassium 4.4 mmol/L N 3.5-5.0 Chloride 101 mmol/L N 101-111 Co2 Carbon Dioxide 25 mmol/L N 22-32 Anion Gap 7 mmol/L N 2-11 Glucose 85 mg/dL N 70-100 Blood Urea Nitrogen 22 mg/dL N 6-24 Creatinine 1.22 mg/dL High 0.67-1.17 BUN/Creatinine Ratio 18.0 N 8-20 Calcium 9.7 mg/dL N 8.6-10.3 Egfr Non- 57.4 N >60 Egfr 73.9 N >60 41 Comp Metabolic 02/27/2015 [facility] Sodium 132 mmol/L Low 133 -[address] [place] [address] [phone] Potassium 4.5 mmol/L N 3.5-5.0 Chloride 97 [...] 63.1 N >60 Egfr 81.1 N >60 43 Lipid Profile 02/27/2015 [facility] Triglycerides 139 mg/dL N 44 (Trig/Chol/HDL) [address] [place] [address] [phone] Cholesterol 165 mg/dL N 45 HDL Cholesterol 46.2 mg/dL N 46 LDL Cholesterol 91 mg/dL N 47 Laboratory test 02/27/2015 [facility] Hemoglobin A1c 6.0 % N Less than 48 finding 101 [facility] (Glyco HGB) 6.0 [place] [address] [phone] Laboratory test 02/17/2015 [facility] Surgical SEE RESULT [address] [place] [address] [phone] Basic Metabolic 06/07/2014 [facility] Sodium 133 mmol/L N 133- 145 Panel [address] [place] [address] [phone] Potassium 4.6 mmol/L N 3.5-5.0 50 Chloride 100 mmol/L Low 101-111 Co2 Carbon Dioxide 25 mmol/L N 22-32 Anion Gap 8 mmol/L N 2-11 Glucose 96 mg/dL N 70-100 Blood Urea Nitrogen 24 mg/dL N 6-24 Creatinine 1.15 mg/dL N 0.67-1.17 BUN/Creatinine Ratio 20.9 High 8-20 Calcium 9.5 mg/dL N 8.6-10.3 Egfr Non- 62.0 N >60 Egfr 79.7 N >60 51 Laboratory test 06/01/2014 [facility] [employer] [facility] Hemoglobin A1c 5.7 5-7 finding Basic Metabolic 04/22/2014 [facility] Sodium 135 mmol/L N 133- 145 52 Panel [address] [place] [address] [phone] Potassium 4.3 mmol/L N 3.7-5.6 Chloride 101 mmol/L N 101-111 Co2 Carbon Dioxide 29 mmol/L N 22-32 Anion Gap 5 mmol/L N 2-11 Glucose 114 mg/dL High 70-100 Blood Urea Nitrogen 22 mg/dL N 6-24 Creatinine 1.02 mg/dL N 0.67-1.17 BUN/Creatinine Ratio 21.6 High 8-20 Calcium 9.4 mg/dL N 8.6-10.3 Egfr Non- 71.2 N >60 Egfr 91.6 N >60 53 Laboratory test 04/22/2014 [facility] Creatine Kinase 83 U/L N 10-223 54 finding [address] [place] [address] [phone] Lipid Profile 04/22/2014 [facility] Triglycerides 140 mg/dL N 55 (Trig/Chol/HDL) [address] [place] [address] [phone] Cholesterol 182 mg/dL N 56 HDL Cholesterol 52.1 mg/dL N 57 LDL Cholesterol 102 mg/dL N 58 Laboratory test 05/24/2013 [facility] [employer] [facility] Hemoglobin A1c 6.0 5-7 finding Creatinine 02/15/2013 [facility] Creatinine 1.10 mg/dL 0.50- 1.40 [address] [place] [address] [phone] Egfr Non- 65.4 >60 Egfr 84.2 >60 59 Laboratory test 02/15/2013 [facility] Blood Urea 21 mg/dL 6- 24 finding [address] [facility] [place] [address] [phone] Laboratory test 01/11/2013 [facility] Creatine Kinase 92 U/L 0-200 60 finding [address] [place] [address] [phone] Pathologist Review (SEE NOTE) 61 Liver Function 01/11/2013 [facility] Total Protein 6.8 g/dL 6.2-8.1 Panel [address] [place] [address] [phone] Albumin 3.8 g/dL 3.2-5.2 Globulin 3.0 g/dL 2-4 Albumin/Globulin Ratio 1.3 1-3 Total Bilirubin 0.8 mg/dL 0.4-1.5 Direct Bilirubin 0.1 mg/dL 0.1-0.5 Indirect Bilirubin 0.7 mg/dL 0.3-1.0 Alkaline Phosphatase 58 U/L 30-110 Alt 19 U/L 14-54 Ast 22 U/L 12-42 Basic Metabolic Panel 01/11/2013 [facility] Sodium 133 mmol/L 133-145 [address] [place] [address] [phone] Potassium 4.2 mmol/L 3.5-5.0 Chloride 101 mmol/L 101-111 Co2 Carbon Dioxide 25.0 mmol/L 22-32 Anion Gap 7.0 mmol/L 2-11 Glucose 121 mg/dL High 70-100 Blood Urea Nitrogen 19 mg/dL 6-24 Creatinine 1.00 mg/dL 0.50-1.40 BUN/Creatinine Ratio 19.0 8-20 Calcium 9.3 mg/dL 8.1-9.9 Egfr Non- 73.2 >60 Egfr 94.2 >60 62 Lipid Profile 01/11/2013 [facility] Triglycerides 122 mg/dL 40-200 (Trig/Chol/HDL) [address] [place] [address] [phone] Cholesterol 136 mg/dL Less than 200 HDL Cholesterol 42 mg/dL 40-60 63 Cholesterol/HDL Ratio 3.2 Average 1-4.44 LDL Cholesterol 69.6 Less Than 100 64 CBC With 01/11/2013 [facility] White Blood 7.1 10^3/uL 4.8- 10.[address] [place] [address] [phone] Red Blood Count 4.57 10^6/uL 4.0-5.4 Hemoglobin [...] Morphology Normal Normal Basic Metabolic Panel 02/03/2012 [facility] Sodium 135 mmol/L 135-[address] [place] [address] [phone] Potassium 4.1 mmol/L 3.5-5.0 Chloride 99 mmol/L Low 101-111 Co2 (Carbon Dioxide) 29.0 mmol/L 22-32 Anion Gap 7.0 mmol/L 2-11 65 Glucose 100 mg/dL 70-100 BUN 17 mg/dL 6-24 Creatinine 1.1 mg/dL 0.50-1.40 One Over Creatinine 0.90 BUN/Creatinine Ratio 15.5 8-20 Calcium 9.6 mg/dL 8.1-9.9 eGFR Non- 65.6 > 60 eGFR 84.4 > 60 66 Laboratory test finding 12/02/2011 Hemoglobin A1c 6.6 % High Less Than 6.0 67 Lipid Profile 12/02/2011 Triglyceride 90 mg/dL 40-200 (Trig/Chol/HDL) Cholesterol 154 mg/dL Less Than 200 68 High Density Lipoprotein 48 mg/dL 40-60 69 Cholesterol/HDL Ratio 3.21 AVERAGE 1-4.97 Low Density Lipoprotein 88 mg/dL Less Than 100 70 Comp Metabolic Panel 12/02/2011 Sodium 135 mmol/L 135-145 Potassium 3.6 mmol/L 3.5-5.0 Chloride 101 mmol/L 101-111 Co2 (Carbon Dioxide) 28.0 mmol/L 22-32 Anion Gap 6.0 mmol/L 2-11 71 Glucose 96 mg/dL 70-100 BUN 15 mg/dL 6-24 Creatinine 0.9 mg/dL 0.50-1.40 One Over Creatinine 1.11 BUN/Creatinine Ratio 16.7 8-20 Calcium 9.1 mg/dL 8.1-9.9 Total Protein 7.1 GM/DL 6.2-8.1 Albumin 4.1 GM/DL 3.2-5.2 Globulin 3.0 GM/DL 2-4 Albumin/Globulin Ratio 1.4 1-3 Bilirubin Total 0.9 mg/dL 0.4-1.5 72 Alkaline Phosphatase 57 U/L 39-117 Alt (SGPT) 32 U/L 17-63 Ast (Sgot) 34 U/L 12-42 eGFR Non- 82.9 > 60 eGFR 106.7 > 60 73 Basic Metabolic Panel 04/23/2011 [facility] Sodium 135 mmol/L 135-[address] [place] [address] [phone] Potassium 4.3 mmol/L 3.5-5.0 Chloride 98 mmol/L Low 101-111 Co2 (Carbon Dioxide) 31.0 mmol/L 22-32 Anion Gap 6.0 mmol/L 2-11 74 Glucose 101 mg/dL High 70-100 BUN 16 mg/dL 6-24 Creatinine 1.0 mg/dL 0.50-1.40 One Over Creatinine 1.00 BUN/Creatinine Ratio 16.0 8-20 Calcium 9.6 mg/dL 8.1-9.9 eGFR Non- 73.5 > 60 eGFR 94.5 > 60 75 CBC Auto Diff 04/23/2011 [facility] White Blood 6.4 CUMM 4.8- 10.[address] [place] [address] [phone] Red Cell Count 4.60 CUMM 4.6-6.2 Hemoglobin [...] Eosinophils 0.3 0-0.6 Abs Basophils 0 0-0.2 76 Basic Metabolic Panel 01/16/2011 [facility] Sodium 139 mmol/L 135-[address] [place] [address] [phone] Potassium 3.8 mmol/L 3.5-5.0 Chloride 101 mmol/L 101-111 Co2 (Carbon Dioxide) 30.0 mmol/L 22-32 Anion Gap 8.0 mmol/L 2-11 77 Glucose 150 mg/dL High 70-100 BUN 13 mg/dL 6-24 Creatinine 1.00 mg/dL 0.50-1.40 One Over Creatinine 1.00 BUN/Creatinine Ratio 13.0 8-20 Calcium 10.0 mg/dL High 8.1-9.9 eGFR Non- 73.7 > 60 eGFR 94.7 > 60 78 CBC Auto Diff 01/16/2011 [facility] White Blood 5.7 CUMM 4.8- 10.[address] [place] [address] [phone] Red Cell Count 4.66 CUMM 4.6-6.2 Hemoglobin [...] Abs Basophils 0.1 0-0.2 Basic Metabolic Panel 05/10/2010 [facility] Sodium 138 mmol/L 135-[address] [place] [address] [phone] Potassium 4.4 mmol/L 3.5-5.0 Chloride 102 mmol/L 101-111 Co2 (Carbon Dioxide) 27.0 mmol/L 22-32 Anion Gap 9.0 mmol/L 2-11 80 Glucose 121 mg/dL High 70-100 81 BUN 10 mg/dL 6-24 Creatinine 1.00 mg/dL 0.50-1.40 One Over Creatinine 1.00 BUN/Creatinine Ratio 10.0 8-20 Calcium 9.6 mg/dL 8.1-9.9 eGFR Non- 78.3 > 60 eGFR 94.7 > 60 82 CBC With 05/10/2010 [facility] White Blood 6.2 CUMM 4.8-10.8 Electronic Diff [address] [place] [address] [phone] Red Cell Count 4.84 CUMM 4.6-6.2 Hemoglobin [...] Eosinophils 0.3 0-0.6 Abs Basophils 0 0-0.2 DR [facility] 01/19/2010 [facility] TSH 2.13 MIU/ML 0.34- 5.[address] [place] [address] [phone] Comp Metabolic 01/19/2010 [facility] Sodium 135 mmol/L 135- [address] [place] [address] [phone] Potassium 5.4 mmol/L High 3.5-5.0 Chloride 100 mmol/L Low 101-111 Co2 (Carbon Dioxide) 28.0 mmol/L 22-32 Anion Gap 7.0 mmol/L 2-11 83 Glucose 107 mg/dL High 70-100 84 BUN 18 mg/dL 6-24 Creatinine 1.00 mg/dL 0.50-1.40 One Over Creatinine 1.00 BUN/Creatinine Ratio 18.0 8-20 Calcium 9.2 mg/dL 8.1-9.9 85 Total Protein 6.7 GM/DL 6.2-8.1 Albumin 3.3 GM/DL 3.2-5.2 Globulin 3.4 GM/DL 2-4 Albumin/Globulin Ratio 1.0 1-3 Bilirubin Total 0.6 mg/dL 0.4-1.5 86 Alkaline Phosphatase 88 U/L 39-117 Alt (SGPT) 54 U/L 17-63 Ast (Sgot) 38 U/L 12-42 eGFR Non- 78.3 > 60 eGFR 94.7 > 60 87 Lipid Profile 01/19/2010 [facility] Triglyceride 139 mg/dL 40 -200 (Trig/Chol/HDL) [address] [place] [address] [phone] Cholesterol 141 mg/dL Less Than 200 88 High Density Lipoprotein 38 mg/dL Low 40-60 89 Cholesterol/HDL Ratio 3.71 AVERAGE 1-4.97 Low Density Lipoprotein 75 mg/dL Less Than 100 90 CBC With 01/19/2010 [facility] White Blood 10.6 CUMM 4.8- 10.[address] [place] [address] [phone] Red Cell Count 3.81 CUMM Low 4.6-6.2 [...] Eosinophils 0.2 0-0.6 Abs Basophils 0.1 0-0.2 91 Comp Metabolic Panel 12/13/2008 [facility] Sodium 137 mmol/L 135-[address] [place] [address] [phone] Potassium 5.3 mmol/L High 3.5-5.0 Chloride 103 mmol/L 101-111 Co2 (Carbon Dioxide) 29.0 mmol/L 22-32 Anion Gap 5.0 mmol/L 2-11 92 Glucose 105 mg/dL High 70-100 93 BUN 19 mg/dL 6-24 Creatinine 1.20 mg/dL 0.50-1.40 One Over Creatinine 0.80 BUN/Creatinine Ratio 15.8 8-20 Calcium 9.5 mg/dL 8.1-9.9 94 Total Protein 6.7 GM/DL 6.2-8.1 Albumin 4.0 GM/DL 3.2-5.2 Globulin 2.7 GM/DL 2-4 Albumin/Globulin Ratio 1.5 1-3 Bilirubin Total 0.8 mg/dL 0.4-1.5 95 Alkaline Phosphatase 62 U/L 39-117 Alt (SGPT) 29 U/L 17-63 Ast (Sgot) 31 U/L 12-42 CBC With 12/13/2008 [facility] White Blood 5.6 CUMM 4.8-10.8 Electronic Diff [address] [place] [address] [phone] Red Cell Count 4.21 CUMM Low 4.6-6.2 [...] 0-0.6 Abs Basophils 0 0-0.2 Laboratory test 12/13/2008 [facility] TSH 1.75 MIU/ML 0.34- 5.60 finding [address] [place] [address] [phone] PSA,Diagnostic 0.97 NG/ML 0-4 96 Lipid Profile 12/13/2008 [facility] Triglyceride 95 mg/dL 40- 200 (Trig/Chol/HDL) [address] [place] [address] [phone] Cholesterol 164 mg/dL Less Than 200 97 High Density Lipoprotein 44 mg/dL 40-60 98 Cholesterol/HDL Ratio 3.73 AVERAGE 1-4.97 Low Density Lipoprotein 101 mg/dL High Less Than 100 99 Laboratory test finding 02/02/2008 [facility] Alt (SGPT) 22 U/L 17-63 [address] [place] [address] [phone] Ast (Sgot) 23 U/L 12-42 Lipid Profile 02/02/2008 [facility] Triglyceride 185 mg/dL 40 -200 (Trig/Chol/HDL) [address] [place] [address] [phone] Cholesterol 172 mg/dL Less Than 200 100 High Density Lipoprotein 38 mg/dL Low 40-60 101 Cholesterol/HDL Ratio 4.53 AVERAGE 1-4.97 Low Density Lipoprotein 97 mg/dL Less Than 100 102 1 Normocytic anemia with red cell anisocytosis. Reviewed by Paula Lee MD 2 Because ethnic data is not always [...] 5 Kidney failure <15 (or dialysis) 3 2w 4 2w 5 2w 6 2w 7 2w 8 Because ethnic data is not always [...] 5 Kidney failure <15 (or dialysis) 10 Result TnIDx:0.05 Called to [id number] at: 18:33:13 by:[id number] Read back by: [id number] Troponin-I testing on Plasma Separator Tubes (PST) has a known false positive rate of 0.20-0.40%. All positive troponins reflex immediately to secondary confirmatory testing. Using the [employer] DxI 800 Access Immunoassay systems, the 99th percentile upper reference limit was demonstrated to be < 0.03 ng/mL. 11 Please note: The following may produce a false positive D Dimer test: - Rheumatoid factor greater than 60 IU/ml - Plasma hemoglobin greater than 0.05 gm/dl - Bilirubin greater than 50 mg/dl - Lipids greater than 1000 mg/dl - FDP greater than 20 ug/ml 12 Critical Result LACT:3.0 Called to [id number] at: 18:32:55 by:[id number] Read back by:[id number] [facility] Severe Sepsis and Septic Shock Management Bundle Measure requires all lactic acids initially measuring >2.0 mmol/L be repeated. 13 Result TnIDx:0.05 Called to [id number] at: 00:02:10 by:[id number] Read back by: [id number] Troponin-I testing on Plasma Separator Tubes (PST) has a known false positive rate of 0.20-0.40%. All positive troponins reflex immediately to secondary confirmatory testing. Using the [employer] DxI 800 Access Immunoassay systems, the 99th percentile upper reference limit was demonstrated to be < 0.03 ng/mL. 14 FASTING 15 FASTING 16 Desirable: <150 Borderline High: 150-199 High: 200-499 Very High: >500 17 Desirable: <200 Borderline High: 200-239 High: >239 18 Low: <40 Desirable: 40-60 High: >60 19 Desirable: <100 Near Optimal: 100-129 Borderline High: 130-159 High: 160-189 Very High: >189 20 Because ethnic data is not always [...] 5 Kidney failure <15 (or dialysis) 21 Acute inflammation: >10.00 22 Because ethnic data is not always [...] 5 Kidney failure <15 (or dialysis) 23 SEE RESULT BELOW Name: JOSE JUAN CHOE : [address]: Rhys Ignacio MD Acct: [id number] Unit: [id number] AGE: 77 Location: WOUND Re10/31/17 SEX: M Status: REG REF SPEC: [id number] LISET: 10/31/[address] [facility] [address]: Rhys Ignacio MD REQ: [id number] RECD: 10/31/17 STATUS: PATTY ANTONIO DR: Gm [...] 1256 END OF REPORT DEPARTMENT OF PATHOLOGY, [address] [place] [address] Humberto Lunsford M.D. Director [facility] # [id number] 24 SEE RESULT BELOW Name: JOSE JUAN CHOE : [address]: Rhys Ignacio MD Acct: [id number] Unit: [id number] AGE: 77 Location: WOUND Re10/24/17 SEX: M Status: REG REF SPEC: [id number] LISET: 10/24/[address]: Rhys Ignacio MD REQ: [id number] RECD: 10/24/17 STATUS: SUGAR ANTONIO DR: Matthias [...] CONTINUED ON NEXT PAGE DEPARTMENT OF PATHOLOGY, [address] [place] [address] Humberto Lunsford M.D. Director [facility] # [id number] Patient: JOSE JUAN CHOE [id number] (Continued) Specimen: [id number] Collected: 10/24/17 Received: 10/24/17-1003 (Continued) Procedure Result Reported Site Tissue Culture Final (continued) 10/29/17- 936 1. VRE ENTEROCOCCUS FAECALIS (continued) M.I.C. RX --------- ------ Tetracycline >=16 R Tigecycline <=0.12 S Vancomycin >=32 R Imipenem-Deduced R * Ampicillin/Sulbactam-Deduced R * These antibiotics are not available in the [facility] Formulary Contact the Microbiology Department for any additional antibiotic reporting. * ML - Main Lab . END OF REPORT DEPARTMENT OF PATHOLOGY, [address] [place] [address] Humberto Lunsford M.D. Director [facility] # [id number] 25 SEE RESULT BELOW Name: JOSE JUAN CHOE : [address]: [facility] Acct: [id number] Unit: [id number] AGE: 77 Location: ED Re09/22/17 SEX: M Status: REG ER SPEC: [id number] LISET: 09/22/17-[address] [facility] [address]: Shyam Gayle MD REQ: [id number] RECD: 09/22/17 STATUS: SUGAR ANTONIO DR: Matthias Welch III, MD _ SOURCE: NASAL SPDESC: ORDERED: Flu A B Request Procedure Result Reported Site Rapid Influenza A B Request Final 09/22/171520 ML Specimen received for Influenza A/B Molecular testing * ML - MAIN LAB ([facility]) . END OF REPORT * ML=Testing performed at Main Lab DEPARTMENT OF PATHOLOGY, [address] [place] [address] Humberto Lunsford M.D. Director [facility] # [id number] 26 [employer] Car [employer]: [id number] 27 SEE RESULT BELOW Name: JOSE JUAN CHOE Krysta : [address]: Elieen Orr DO Acct: [id number] Unit: [id number] AGE: 77 Location: [place] [address] Re09/22/17 SEX: M Status: ADM IN SPEC: [id number] LISET: 09/22/17-[address] [facility] [address]: Shyam Gayle MD REQ: [id number] RECD: 09/22/17 STATUS: RES CONORHR DR: Matthias Welch III, MD _ SOURCE: LEG,LEFT SPDESC: ORDERED: MRSA/SA SSTI, Culture Stain COMMENTS: Verbal to [id number] by [id number] at 2101 on 09/22/17. Results read back accurately. Procedure Result Reported Site MRSA/S. aureus SSTI PCR Final 09/22/17- 2100 ML Organism 1 MRSA NEGATIVE Organism 2 S.AUREUS POSITIVE Wound/Misc Gram Stain Final 09/22/17- 1947 ML 1+ Epithelial Cells 4+ Neutrophils 4+ Nucleated Cells 2+ Gram Positive Cocci Wound/Misc Culture Preliminary 09/24/17- 102 ML Organism 1 STAPHYLOCOCCUS AUREUS Quantity 1+ 1. STAPHYLOCOCCUS AUREUS M.I.C. RX --------- ------ Penicillin >=0.5 R Clindamycin <=0.25 S Erythromycin <=0.25 S Gentamicin <=0.5 S Linezolid 2 S Nitrofurantoin <=16 S Oxacillin 0.5 S * Quinupristin/Dalfopristin 0.5 S Rifampin <=0.5 S CONTINUED ON NEXT PAGE DEPARTMENT OF PATHOLOGY, [address] [place] [address] Humberto Lunsford M.D. Director [facility] # [id number] Patient: JOSE JUAN CHOE [id number] (Continued) Specimen: [id number] Collected: 09/22/17 Received: 09/22/17 (Continued) Procedure Result Reported Site Wound/Misc Culture Preliminary (continued) 09/24/171020 1. STAPHYLOCOCCUS AUREUS (continued) M.I.C. RX --------- ------ Tetracycline <=1 S Doxycycline - Deduced S * Minocycline - Deduced S Trimethoprim/Sulfamethoxazole <=10 S Vancomycin 1 S Imipenem-Deduced S * Ampicillin/Sulbactam-Deduced S Cefazolin-Deduced S * These antibiotics are not available in the [facility] Formulary Contact the Microbiology Department for any additional antibiotic reporting. * ML - Main Lab . END OF REPORT DEPARTMENT OF PATHOLOGY, [address] [place] [address] Humberto Lunsford M.D. Director [facility] # [id number] SEE RESULT BELOW Name: JOSE JUAN CHOE : [address]: Shyam Gayle MD Acct: [id number] Unit: [id number] AGE: 77 Location: ED Re09/22/17 SEX: M Status: REG ER SPEC: [id number] LISET: 09/22/17-[address]: Shyam Gayle MD REQ: [id number] RECD: 09/22/17 STATUS: ANANDA ANTONIO DR: Matthias Welch III, MD _ SOURCE: LEG,LEFT SPDESC: ORDERED: Culture Stain Procedure Result Reported Site Wound/Misc Gram Stain Final 09/22/171947 ML 1+ Epithelial Cells 4+ Neutrophils 4+ Nucleated Cells 2+ Gram Positive Cocci Wound/Misc Culture PENDING * ML - MAIN LAB ([facility]) . END OF REPORT * ML=Testing performed at Main Lab DEPARTMENT OF PATHOLOGY, [address] [place] [address] Humberto Lunsford M.D. Director [facility] # [id number] 29 Result TnIDx:0.08 Called to [id number] at: 18:36:20 by:[id number] Read back by: [id number] 30 Because ethnic data is not always [...] 5 Kidney failure <15 (or dialysis) 31 [facility] Severe Sepsis and Septic Shock Management Bundle Measure requires all lactic acids initially measuring >2.0 mmol/L be repeated. 32 standing order 33 Because ethnic data is not always readily [...] 15-29 5 Kidney failure <15 (or dialysis) 34 Critical Result LACT:2.2 Called to [id number] at: 17:03:38 by:[id number] Read back by:[email or web address] Severe Sepsis and Septic Shock Management Bundle Measure requires all lactic acids initially measuring >2.0 mmol/L be repeated. 35 Please note the change in INR reference range effective 17. 36 Desirable: <150 Borderline High: 150-199 High: 200-499 Very High: >500 37 Desirable: <200 Borderline High: 200-239 High: >239 38 Low: <40 Desirable: 40-60 High: >60 39 Desirable: <100 Near Optimal: 100-129 Borderline High: 130-159 High: 160-189 Very High: >189 40 Because ethnic data is not always [...] 5 Kidney failure <15 (or dialysis) 41 Because ethnic data is not always [...] 5 Kidney failure <15 (or dialysis) 42 FASTING 10 HOUR 43 Because ethnic data is not always [...] 5 Kidney failure <15 (or dialysis) 44 Desirable <150 Borderline high 150-199 High 200-499 Very High >500 45 Desirable <200 Borderline high 200-239 High >239 46 Low <40 Desirable: 40-60 High: >60 47 Desirable: <100 mg/dL Near Optimal: 100-129 mg/dL Borderline High: 130-159 mg/dL High: 160-189 mg/dL Very High: >189 mg/dL 48 Therapeutic target for the treatment of diabetes Mellitus patients is <7% HBA1C, and in selective patients <6.0%.Please refer to [employer] Diabetic care guidelines for further information. 49 SEE RESULT BELOW Name: JOSE JUAN CHOE : [address]: Jez Damon MD Acct: [id number] Unit: [id number] AGE: 75 Location: ENDO Re02/17/15 SEX: M Status: REG REF SPEC: [id number] LISET: 02/17/15-[address]: Jez Damon MD REQ: [id number] RECD: 02/17/15-1931 STATUS: PATTY ANTONIO DR: Matthias Welch III, [...] performed at Main Lab DEPARTMENT OF PATHOLOGY, [address] [place] [address] Humberto Lunsford M.D. Director [facility] # [id number] 50 Potassium reference range changed effective 05/29/14 51 Because ethnic data is not always [...] 5 Kidney failure <15 (or dialysis) 52 PT IS FASTING 53 Because ethnic data is not always [...] 5 Kidney failure <15 (or dialysis) 54 PT IS FASTING 55 Desirable <150 Borderline high 150-199 High 200-499 Very High >500 56 Desirable <200 Borderline high 200-239 High >239 57 Low <40 Desirable: 40-60 High: >60 58 Desirable <100 Near Optimal 100-129 Borderline high 130-159 High 160-189 Very High >189 59 Because ethnic data is not always [...] 5 Kidney failure <15 (or dialysis) 60 FASTING Lab added 61 CBC and smear reviewed. Eosinophilia confirmed. May be allergy, drug or parasite related. REVIEWED BY HUMBERTO LUNSFROD MD 62 Because ethnic data is not always readily [...] 15-29 5 Kidney failure <15 (or dialysis) 63 HDL Interpretation: Undesirable: High Risk: Less than 40 mg/dL Desirable: Low Risk: Greater than 60 mg/dL 64 LDL Interpretation: Low Risk Optimal Level: LDL Less than 100 mg/dL Near or Above Optimal: LDL 100-129 mg/dL Borderline High Risk: LDL 130-159 mg/dL High Risk: LDL 160-189 mg/dL Very High Risk: LDL Greater than 189 mg/dL 65 Anion gap measurement may be of limited value in the presence of any alkalosis, especially in a combined acid base disorder. . 66 Because ethnic data is not always readily [...] 15-29 5 Kidney failure <15 (or dialysis) 67 THERAPEUTIC TARGET FOR THE TREATMENT OF DIABETES MELLITUS PATIENTS IS <7% HBA1C, AND IN SELECTIVE PATIENTS <6.0%. PLEASE REFER TO [place] [employer] DIABETIC CARE GUIDELINES FOR FURTHER INFORMATION. 68 CHOLESTEROL INTERPRETATION: Desirable: Less than 200 [...] High Risk: LDL Greater than 189 MG/DL 71 Anion gap measurement may be of limited value in the presence of any alkalosis, especially in a combined acid base disorder. . 72 A metabolite of Naproxen, O-desmethylnaproxen, has been shown to interfere with the Jendrassik-Aleksey method for measuring total bilirubin. Samples from patients who have taken Naproxen have shown spurious elevation in total bilirubin levels. 73 Because ethnic data is not always readily [...] 15-29 5 Kidney failure <15 (or dialysis) 74 Anion gap measurement may be of limited value in the presence of any alkalosis, especially in a combined acid base disorder. . 75 Because ethnic data is not always readily [...] 15-29 5 Kidney failure <15 (or dialysis) 76 H H Check Failed 77 Anion gap measurement may be of limited value in the presence of any alkalosis, especially in a combined acid base disorder. . 78 Because ethnic data is not always readily [...] 15-29 5 Kidney failure <15 (or dialysis) 79 SAME DAY SURGERY 05-14-10 80 Anion gap measurement may be of limited value in the presence of any alkalosis, especially in a combined acid base disorder. . 81 Note change in reference range as of 03/17/08. The change was based on recommendations from the [employer]. 82 Because ethnic data is not always readily [...] 15-29 5 Kidney failure <15 (or dialysis) 83 Anion gap measurement may be of limited value in the presence of any alkalosis, especially in a combined acid base disorder. . 84 Note change in reference range as of 03/17/08. The change was based on recommendations from the [employer]. 85 Please note change in reference range effective 07 . 86 A metabolite of Naproxen, O-desmethylnaproxen, has been shown to interfere with the Jendrassik-[place] method for measuring total bilirubin. Samples from patients who have taken Naproxen have shown spurious elevation in total bilirubin levels. 87 Because ethnic data is not always readily [...] 15-29 5 Kidney failure <15 (or dialysis) 88 CHOLESTEROL INTERPRETATION: Desirable: Less than 200 MG/DL Borderline-High Risk: 200-239 MG/DL High-Risk: 240 MG/DL and over 89 HDL INTERPRETATION: Undesirable: High Risk: Less than 40 MG/DL Desirable: Low Risk: Greater than 60 MG/DL 90 LDL INTERPRETATION: Low Risk Optimal Level: LDL Less than 100 MG/DL Near or Above Optimal: LDL 100-129 MG/DL Borderline High Risk: LDL 130-159 MG/DL High Risk: LDL 160-189 MG/DL Very High Risk: LDL Greater than 189 MG/DL 91 Lymphopenia % 92 Anion gap measurement may be of limited value in the presence of any alkalosis, especially in a combined acid base disorder. . 93 Note change in reference range as of 03/17/08. The change was based on recommendations from the [employer]. 94 Please note change in reference range effective 07 . 95 A metabolite of Naproxen, O-desmethylnaproxen, has been shown to interfere with the Jendrassik-[place] method for measuring total bilirubin. Samples from patients who have taken Naproxen have shown spurious elevation in total bilirubin levels. 96 * SERUM LEVELS OF PSA MEASURED USING THE [employer] ACCESS HYBRITECH IMMUNOASSAY SHOULD NOT BE INTERPRETED ABSOLUTE EVIDENCE OF THE PRESENCE OR ABSENCE OF DISEASE. THE PSA VALUE SHOULD BE USED IN CONJUNCTION WITH OTHER PERTINENT CLINICAL DIAGNOSTIC PROCEDURES. 97 CHOLESTEROL INTERPRETATION: Desirable: Less than 200 MG/DL Borderline-High Risk: 200-239 MG/DL High-Risk: 240 MG/DL and over 98 HDL INTERPRETATION: Undesirable: High Risk: Less than 40 MG/DL Desirable: Low Risk: Greater than 60 MG/DL 99 LDL INTERPRETATION: Low Risk Optimal Level: LDL Less than 100 MG/DL Near or Above Optimal: LDL 100-129 MG/DL Borderline High Risk: LDL 130-159 MG/DL High Risk: LDL 160-189 MG/DL Very High Risk: LDL Greater than 189 MG/DL 100 CHOLESTEROL INTERPRETATION: Desirable: Less than 200 MG/DL Borderline-High Risk: 200-239 MG/DL High-Risk: 240 MG/DL and over 101 HDL INTERPRETATION: Undesirable: High Risk: Less than 40 MG/DL Desirable: Low Risk: Greater than 60 MG/DL 102 LDL INTERPRETATION: Low Risk Optimal Level: LDL Less than 100 MG/DL Near or Above Optimal: LDL 100-129 MG/DL Borderline High Risk: LDL 130-159 MG/DL High Risk: LDL 160-189 MG/DL Very High Risk: LDL Greater than 189 MG/DL Procedures Date Code Description Status 12/31/2018 28351 EKG Tracing & Interpretation Completed 12/14/2018 91392 ECHO Transthorasic Realtime 2D W Doppler & Color Flow Completed Hosp 11/29/2018 [id number] Colonoscopy Completed 06/12/2018 92031 Removal Devitalization Tissue Wound Less Than Equal 20 Completed Square CM 06/05/2018 07144 Removal Devitalization Tissue Wound Less Than Equal 20 Completed Square CM 05/29/2018 83603 Debridement Skin, Subcutaneous Tissue & Muscle Completed 05/08/2018 03346 Debridement Skin,& sq Tissue Completed 04/07/2018 06713 EKG Tracing & Interpretation Completed 03/13/2018 78221 Debridement Skin,& sq Tissue Completed 03/04/2018 66884 Chemical Cautery Granulation Tissue Completed 02/27/2018 08547 Debridement Skin, Subcutaneous Tissue & Muscle Completed 02/20/2018 42749 Chemical Cautery Granulation Tissue Completed 02/13/2018 92144 Debridement Skin, Subcutaneous Tissue & Muscle Completed 02/06/2018 59352 Removal Devitalization Tissue Wound Less Than Equal 20 Completed Square CM 01/30/2018 46906 Removal Devitalization Tissue Wound Less Than Equal 20 Completed Square CM 11/18/2017 12868 ECHO Transthoracic, Real-Time 2D With Doppler And Color Completed Flow 11/18/2017 87437 ECHO Transthoracic, Real-Time 2D With Doppler And Color Completed Flow 11/18/2017 25654 Echocardiogram, Limited Study Completed 11/07/2017 72561 Debridement Skin,& sq Tissue Completed 11/04/2017 97556 EKG Tracing & Interpretation Completed 10/31/2017 62177 Biopsy Skin Lesion Single Completed 10/24/2017 67307 Debridement Skin, Subcutaneous Tissue & Muscle Completed 10/10/2017 90403 Debridement Skin, Subcutaneous Tissue & Muscle Completed 10/03/2017 71404 I&D Leg Or Ankle;Deep Abscess Or Hematoma Completed 09/26/2017 94315 Echocardiography, Transesophageal, Real Time W/Image 2D Completed W/W/O M-M 09/26/2017 33919 Pulse Wave/Continuous-Interp.RPT Completed 09/26/2017 32662 Color Flow Doppler/Interp & Reprt Completed 09/24/2017 33197 ECHO Transthorasic Realtime 2D W Doppler & Color Flow Completed Hosp 08/26/2017 05548 EKG Tracing & Interpretation Completed 08/22/2017 21116 ECHO Transthoracic, Real-Time 2D With Doppler And Color Completed Flow 08/22/2017 46411 ECHO Transthoracic, Real-Time 2D With Doppler And Color Completed Flow 07/18/2017 96230 EKG, Interpretation Only Completed 07/18/2017 65959 EKG, Tracing Only, No Interpretation Completed 07/18/2017 68368 EKG Tracing & Interpretation Completed 03/19/2017 50695 Color Flow Doppler/Interp & Reprt Completed 03/19/2017 86788 Pulse Wave/Continuous-Interp.RPT Completed 03/19/2017 73804 Echocardiography, Transesophageal, Real Time W/Image 2D Completed W/W/O M-M 02/04/2017 15262 ECHO Transthoracic, Real-Time 2D With Doppler And Color Completed Flow 01/06/2017 83045 EKG Tracing & Interpretation Completed 01/24/2016 83126 ECHO Transthoracic, Real-Time 2D With Doppler And Color Completed Flow 12/22/2015 31135 EKG Tracing & Interpretation Completed 02/17/2015 [id number] Colonoscopy Completed 12/14/2014 56864 EKG Tracing & Interpretation Completed 12/12/2014 85205 ECHO Transthoracic, Real-Time 2D With Doppler And Color Completed Flow 03/16/2014 57071 Color Flow Doppler/Interp & Reprt Completed 03/16/2014 46092 Pulse Wave/Continuous-Interp.RPT Completed 03/16/2014 75614 Echocardiography, Transesophageal, Real Time W/Image 2D Completed W/W/O M-M 01/10/2014 28915 EKG Tracing & Interpretation Completed 12/27/2013 11294 ECHO Transthoracic, Real-Time 2D With Doppler And Color Completed Flow 06/22/2013 80479 ECHO Transthoracic, Real-Time 2D With Doppler And Color Completed Flow 01/19/2013 44548 ECHO Transthoracic, Real-Time 2D With Doppler And Color Completed Flow 01/08/2013 27570 EKG Tracing & Interpretation Completed 01/01/2012 06119 EKG Tracing & Interpretation Completed 12/26/2011 03456 ECHO Transthoracic, Real-Time 2D With Doppler And Color Completed Flow 05/24/2011 20061 EKG Tracing & Interpretation Completed 05/16/2011 53399 ECHO Transthoracic, Real-Time 2D With Doppler And Color Completed Flow 12/25/2010 94476 EKG Tracing & Interpretation Completed 06/04/2010 01672 Echocardiogram Completed 06/04/2010 98524 ECHO Transthorasic Realtime 2D W Doppler & Color Flow Completed Hosp 06/01/2010 70286 EKG Tracing & Interpretation Completed 02/01/2010 74620 ECHO Stress Test Incl Perf Contiuous ekg Monitoring Completed W/Phys Superv 01/24/2010 76944 ECHO Transthoracic, Real-Time 2D With Doppler And Color Completed Flow 01/15/2010 31709 EKG Tracing & Interpretation Completed 12/26/2009 19159 EKG Tracing & Interpretation Completed 12/19/2009 80947 ECHO Transthoracic, Real-Time 2D With Doppler And Color Completed Flow 04/19/2009 35354 Color Flow Doppler/Interp & Reprt Completed 04/19/2009 03037 Pulse Wave/Continuous-Interp.RPT Completed 04/19/2009 88095 Echocardiography, Transesophageal, Real Time W/Image 2D Completed W/W/O M-M 03/24/2009 63219 Selective Coronary Angioplasty Completed 03/24/2009 50691 S/I/R Inj Proc Vent And Or Atrial Completed 03/24/2009 25418 Coronary Angiography Completed 03/24/2009 79205 Inj Proc LFT Vent/LFT Atrl Angio Completed 03/24/2009 49602 Com RT And LT Catheterization Completed 03/22/2009 23319 EKG Tracing & Interpretation Completed 01/30/2009 54356 ECHO Transthoracic, Real-Time 2D With Doppler And Color Completed Flow 12/30/2006 42147 Color Doppler Completed 12/30/2006 98335 Pulse Doppler & Continuous Wave Completed 12/30/2006 91631 Pulse Doppler & Continuous Wave Completed 12/30/2006 73928 Echocardiogram Completed 02/15/2005 [id number] Colonoscopy Completed Encounters Type Date Location Provider Dx Diagnosis Office Visit 12/31/2018 [facility] Nellie Nelson, I50.33 Acute on chronic 11:00a N.P. diastolic (congestive) heart failure Z95.2 Presence of prosthetic heart valve I35.0 Nonrheumatic aortic (valve) stenosis I48.0 Paroxysmal atrial fibrillation I25.2 Old myocardial infarction Office Visit 12/22/2018 9:00a [facility] Internal Matthias Alvares I50.33 Acute on chronic Medicine - Mateo Welch diastolic Ccmob (congestive) heart failure I48.2 Chronic atrial fibrillation D64.9 Anemia, unspecified Z95.2 Presence of prosthetic heart valve Office Visit 12/16/2018 9:24a [facility] Uzma Fields, I50.21 Acute systolic viktoria Dorsey MD (congestive) heart Hospitalists failure I48.91 Unspecified atrial fibrillation 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 Office Visit 12/15/2018 [facility] Asya I50.23 Acute on chronic 9:23a viktoria Dorsey MD systolic Hospitalists (congestive) heart failure I35.0 Nonrheumatic aortic (valve) stenosis I48.91 Unspecified atrial fibrillation 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 D64.9 Anemia, unspecified Office Visit 12/14/2018 [facility] Asya I50.23 Acute on chronic 9:23a viktoria Dorsey MD systolic Hospitalists (congestive) heart failure I48.91 Unspecified atrial fibrillation 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 D64.9 Anemia, unspecified Office Visit 12/13/2018 [facility] Asya I50.23 Acute on chronic 9:23a viktoria Dorsey MD systolic Hospitalists (congestive) heart failure I48.91 Unspecified atrial fibrillation 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 D64.9 Anemia, unspecified Office Visit 12/12/2018 9:23a [facility] Uzma Dill, I50.23 Acute on chronic Assocviktoria MD systolic Hospitalists (congestive) heart failure I48.91 Unspecified atrial fibrillation D64.9 Anemia, unspecified 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 Office Visit 12/11/2018 [facility] Asya I50.23 Acute on chronic 9:22a Assoc,pc MD Derick systolic Hospitalists (congestive) heart failure I48.91 Unspecified atrial fibrillation 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 D64.9 Anemia, unspecified Office Visit 12/10/2018 9:22a [facility] Kelly R06.02 Shortness of Assoc,viktoria Dumont NP breath Hospitalists 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 I10 Essential (primary) hypertension N17.9 Acute kidney failure, unspecified R79.89 Other specified abnormal findings of blood chemistry Office Visit 12/10/2018 2:00p [facility] Romeo Alvares I50.33 Acute on chronic Claudette Welch M.D. diastolic Ccmob (congestive) heart failure Office Visit 05/22/2018 11:15a [facility] Gwen Abraham L97.213 Non-prs chronic [facility] [place] Omar 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 I70.232 Athscl [place] arteries of right leg w ulceration of calf E11.622 Type 2 diabetes mellitus with other skin ulcer M79.A21 Nontraumatic compartment syndrome of right lower extremity I70.211 Athscl [place] arteries of extrm w intrmt kacy, right leg Office Visit 04/28/2018 [facility] Internal Matthias Alvares R73.01 Impaired 1:00p Claudette-Angelito Welch M.D. 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 I48.91 Unspecified atrial 3:40p Cardiology Mateo Willingham fibrillation I42.9 Cardiomyopathy, unspecified I35.0 Nonrheumatic aortic (valve) stenosis E78.2 Mixed hyperlipidemia Office Visit 04/03/2018 8:15a Wound Care Rhys Ignacio, L97.213 Non-prs chronic [facility] , FACS 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 I70.232 Athscl [place] arteries of right leg w ulceration of calf E11.622 Type 2 diabetes mellitus with other skin ulcer M79.A21 Nontraumatic compartment syndrome of right lower extremity I70.211 Athscl [place] arteries of extrm w intrmt kacy, right leg Office Visit 03/20/2018 8:00a Wound Care Rhys Ignacio, L97.213 Non-prs chronic [facility] , FACS 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 I70.232 Athscl [place] arteries of right leg w ulceration of calf E11.622 Type 2 diabetes mellitus with other skin ulcer M79.A21 Nontraumatic compartment syndrome of right lower extremity I70.211 Athscl [place] arteries of extrm w intrmt kacy, right leg Office Visit 12/01/2017 3:00p [facility] For Gm Tsai 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 infarction of muscle, right lower leg Office Visit 11/10/2017 [facility] Gm Tsai Z95.2 Presence of 2:20p For Mamta Le M.D. prosthetic heart Diseases valve M60.061 Infective myositis, right lower leg Z79.2 custodial (current) use of antibiotics E11.622 Type 2 diabetes mellitus with other skin ulcer Office Visit 11/04/2017 2:30p [facility] Nellie Hunter Z95.2 Presence of Of Paulette Nelson N.P. prosthetic heart valve I42.9 Cardiomyopathy, unspecified 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 I33.0 Acute and subacute infective endocarditis I48.0 Paroxysmal atrial fibrillation Office 10/27/2017 Philippe [facility] Internal Matthias Alvaers M62.261 Nontraumatic Visit 3:40p Medicine-Angelito Welch M.D. ischemic infarction of muscle, right lower leg L03.115 Cellulitis of right lower limb R73.01 Impaired fasting glucose Office Visit 10/16/2017 2:40p [facility] Rian Tsai L02.415 Cutaneous Infectious Tangela, M.D. abscess of Diseases right lower limb R78.81 Bacteremia Z95.2 Presence of prosthetic heart valve K59.00 Constipation, unspecified Office Visit 10/07/2017 10:06a [facility] Kaveh Zacarias, L03.115 Cellulitis of Assoc,viktoria MATAMOROS right lower limb Hospitalists L02.415 Cutaneous abscess of right lower limb T79.A21A Traumatic compartment syndrome of r low extrem, init R78.81 Bacteremia Office Visit 10/06/2017 10:05a [facility] Kaveh Zacarias, L03.115 Cellulitis of Assoc,viktoria MATAMOROS right lower limb Hospitalists L02.415 Cutaneous abscess of right lower limb T79.A21A Traumatic compartment syndrome of r low extrem, init R78.81 Bacteremia Office Visit 10/06/2017 9:11a [facility] Rian Tsai L02.415 Cutaneous Infectious Macjten, M.D. abscess of Diseases right lower limb L97.913 Non-prs chronic ulc unsp prt of r low leg w necros muscle I33.0 Acute and subacute infective endocarditis Z95.2 Presence of prosthetic heart valve Office Visit 10/05/2017 10:04a [facility] Kaveh Zacarias, L03.115 Cellulitis of Assocviktoria MD right lower limb Hospitalists L02.415 Cutaneous abscess of right lower limb T79.A21A Traumatic compartment syndrome of r low extrem, init R78.81 Bacteremia Office Visit 10/04/2017 10:03a [facility] Kaveh Zacarias, L03.115 Cellulitis of Assocviktoria MD right lower limb Hospitalists L02.415 Cutaneous abscess of right lower limb R78.81 Bacteremia R74.8 Abnormal levels of other serum enzymes Office Visit 10/03/2017 10:02a [facility] Kaveh Zacarias, L03.115 Cellulitis of Assocviktoria MD right lower limb Hospitalists L02.415 Cutaneous abscess of right lower limb R78.81 Bacteremia R74.8 Abnormal levels of other serum enzymes [facility] L97.819 Non-pressure 9:08a For Mamta Le M.D. chronic ulcer oth Diseases prt r low leg w unsp severity L02.415 Cutaneous abscess of right lower limb I33.0 Acute and subacute infective endocarditis B95.61 Methicillin suscep staph infct causing dis classd elswhr Office Visit 10/02/2017 10:01a [facility] Angeli L03.115 Cellulitis of Assoc,pc [place], DO right lower limb Hospitalists L02.415 Cutaneous abscess of right lower limb R78.81 Bacteremia Office Visit 10/02/2017 12:45p [facility] Eren Kang L02.415 Cutaneous Of Manager Flight Operations [facility] [place] Max, abscess of right FACC, FSCAI lower limb B95.61 Methicillin suscep staph infct causing dis classd elswhr I73.9 Peripheral vascular disease, unspecified Office Visit 10/02/2017 7:00a Surgical Rhys Richardson L02.415 [facility]aneous [facility] Paulette Ignacio MD, abscess of right FACS lower limb Office Visit 10/01/2017 10:00a [facility] Angeli L03.115 Cellulitis of Assoc,pc [place], DO right lower limb Hospitalists L02.415 Cutaneous abscess of right lower limb R78.81 Bacteremia R74.8 Abnormal levels of other serum enzymes Office Visit 09/30/2017 9:59a [facility] Angeli L03.115 Cellulitis of Assoc,pc [place], DO right lower limb Hospitalists L02.415 Cutaneous abscess of right lower limb R78.81 Bacteremia R74.8 Abnormal levels of other serum enzymes Office Visit 09/29/2017 9:32a [facility] Kaveh Zacarias, L03.115 Cellulitis of Assoc,pc right lower limb Hospitalists L02.415 Cutaneous abscess of right lower limb R78.81 Bacteremia R74.8 Abnormal levels of other serum enzymes Office Visit 09/29/2017 11:45a [facility] Gm Tsai L02.415 Cutaneous Infectious Mateo Le abscess of Diseases right lower limb B95.61 Methicillin suscep staph infct causing dis classd elswhr I73.9 Peripheral vascular disease, unspecified R78.81 Bacteremia I33.0 Acute and subacute infective endocarditis Office Visit 09/29/2017 Surgical Florentino Nieto L02.415 Cutaneous 7:00a [facility] LINSEY Sosa abscess of right lower limb Office Visit 09/28/2017 [facility] Angelichristopher Downing, L03.115 Cellulitis of 9:32a Assoc,pc DO right lower Hospitalists limb L02.415 Cutaneous abscess of right lower limb R78.81 Bacteremia Office Visit 09/27/2017 9:31a [facility] Angeli L03.115 Cellulitis of Assoc,pc [place], DO right lower limb Hospitalists L02.415 Cutaneous abscess of right lower limb R78.81 Bacteremia Office Visit 09/26/2017 9:30a [facility] Eileen L03.115 Cellulitis of Assoc,viktoria Orr D.O. right lower limb Hospitalists L02.415 Cutaneous abscess of right lower limb R78.81 Bacteremia R74.8 Abnormal levels of other serum enzymes Office Visit 09/25/2017 9:29a [facility] Eileen L03.115 Cellulitis of Assoc,pc Quin OrrO. right lower limb Hospitalists L02.415 Cutaneous abscess of right lower limb R78.81 Bacteremia R74.8 Abnormal levels of other serum enzymes Office Visit 09/25/2017 [facility] Gm Tsai L97.819 Non-pressure 11:17a For Infectious Macqueen, M.D. chronic ulcer oth Diseases prt r low leg w unsp severity R78.81 Bacteremia Z95.3 Presence of xenogenic heart valve Office Visit 09/24/2017 7:00a Surgical Rhys PGladys L03.115 Cellulitis of [facility] MD Sandee, right lower limb FACS Office Visit 09/24/2017 9:28a [facility] Eileen L03.115 Cellulitis of Assoc,pc Melissa Orr right lower limb Hospitalists L02.415 Cutaneous abscess of right lower limb R78.81 Bacteremia R74.8 Abnormal levels of other serum enzymes Office Visit 09/23/2017 9:27a [facility] Gerardo L03.115 Cellulitis of Assoc,viktoria Nazario M.D. right lower limb Hospitalists R74.8 Abnormal levels of other serum enzymes J40 Bronchitis, not specified as acute or chronic E87.1 Hypo-osmolality and hyponatremia Office Visit 09/22/2017 [facility] Meño Severino L03.115 Cellulitis of 9:26a Assoc,viktoria RODRIGUEZ M.D. right lower Hospitalists limb R74.8 Abnormal levels of other serum enzymes E87.1 Hypo-osmolality and hyponatremia J40 Bronchitis, not specified as acute or chronic Office Visit 09/11/2017 11:00a [facility] Nellie Hunter I25.10 [facility] Omar NGladysP. disease of [place] coronary artery w/o ang pctrs I48.0 Paroxysmal atrial fibrillation I73.9 Peripheral vascular disease, unspecified I50.9 Heart failure, unspecified E78.5 Hyperlipidemia, unspecified Office Visit 08/26/2017 3:00p [facility] Brandon Hunter I25.10 [facility] Mateo Willingham disease of [place] coronary artery w/o ang pctrs I48.0 Paroxysmal atrial fibrillation R06.03 Acute respiratory distress I73.9 Peripheral vascular disease, unspecified I50.9 Heart failure, unspecified I27.20 Pulmonary hypertension, unspecified E66.9 Obesity, unspecified E78.5 Hyperlipidemia, unspecified I44.0 Atrioventricular block, first degree Office Visit 08/13/2017 Philippe [facility] Romeo Alvares I25.10 [facility] heart 2:20p [facility] Rebekah, M.D. disease of [place] coronary artery w/o ang pctrs I73.9 Peripheral vascular disease, unspecified E78.2 Mixed hyperlipidemia J06.9 Acute upper respiratory infection, unspecified Office Visit 07/20/2017 [facility] Kvng R57.1 Hypovolemic shock 10:36a Assoc,viktoria Kenney N.PGladys Hospitalists 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 I73.9 Peripheral vascular disease, unspecified I10 Essential (primary) hypertension Office Visit 07/18/2017 10:30a [facility] Carla Smith, I73.9 Peripheral Of Manager Flight Operations PA vascular disease, unspecified I21.4 Non-St elevation (Nstemi) myocardial infarction I82.491 Acute embolism and thrombosis of deep vein of r low extrem I10 Essential (primary) hypertension I48.91 Unspecified atrial fibrillation R57.0 Cardiogenic shock Office Visit 07/15/2017 9:00a [facility] Eileen Kirby, I73.9 Peripheral vascular D.O. 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 Z95.2 Presence of Mateo Willingham prosthetic heart valve R60.9 Edema, unspecified I35.0 Nonrheumatic aortic (valve) stenosis I73.9 Peripheral vascular disease, unspecified E78.2 Mixed hyperlipidemia Office Visit 01/06/2017 [facility] Brandon S. I35.0 Nonrheumatic 4:00p Cardiology Mateo Willingham aortic (valve) stenosis R60.9 Edema, unspecified E78.2 Mixed hyperlipidemia I73.9 Peripheral vascular disease, unspecified Office Visit 12/22/2015 10:40a [facility] Brandon S. I73.9 Peripheral Cardiology Mateo Willingham vascular disease, unspecified I35.0 Nonrheumatic aortic (valve) stenosis I10 Essential (primary) hypertension E78.2 Mixed hyperlipidemia 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 R53.83 Other fatigue R06.02 Shortness of breath Office Visit 03/07/2015 9:30a [facility] Carla Smith, 443.9 Peripheral PA Vascular Disease Unspec 424.1 Aortic Valve Disorder 401.1 Hypertension Benign 272.2 Hyperlipidemia Mixed Office Visit 12/14/2014 10:00a [facility] Qutaybeh S. V42.2 Transplant Heart Mateo Willingham Valve 424.1 Aortic Valve Disorder 443.9 Peripheral Vascular Disease Unspec 401.1 Hypertension Benign 272.0 Hypercholesterolemia Pure Office Visit 06/01/2014 2:00p [facility] Internal Matthias Alvares 401.1 Hypertension Benign Medicine - Mateo Welch Ccmob 272.0 Hypercholesterolemia Pure 443.9 Peripheral Vascular Disease Unspec 424.1 Aortic Valve Disorder 790.21 Impaired Fasting Glucose Office Visit 05/19/2014 1:30p [facility] Carla Smith, 401.0 Hypertension PA Malignant 272.2 Hyperlipidemia Mixed 443.9 Peripheral Vascular Disease Unspec 272.0 Hypercholesterolemia Pure 424.1 Aortic Valve Disorder Office Visit 04/14/2014 4:00p [facility] Qutaybeh S. 424.1 Aortic Valve Mateo Willingham Disorder 414.01 Coronary Atherosclerosis [place] V42.2 Transplant Heart Valve 401.0 Hypertension Malignant 272.2 Hyperlipidemia Mixed Office Visit 03/16/2014 8:00a [facility] Qutaybeh S. 424.1 Aortic Valve Mateo Willingham Disorder Office Visit 01/10/2014 10:00a [facility] Qutaybeh S. 424.1 Aortic Valve Mateo Willingham Disorder 401.1 Hypertension Benign 414.01 Coronary Atherosclerosis [place] V42.2 Transplant Heart Valve 443.9 Peripheral Vascular Disease Unspec Office Visit 01/08/2013 3:20p [facility] Qutaybeh S. V42.2 Transplant Heart Mateo Willingham Valve 272.0 Hypercholesterolemia Pure 414.01 Coronary Atherosclerosis [place] 424.1 Aortic Valve Disorder Office Visit 04/23/2012 1:20p [facility] Internal Matthias EGladys 782.1 Rash & Other Medicine - Sea Welch M.D. Nonspec Skin Eruption Office Visit 02/18/2012 10:30a [facility] Jessa 401.1 Hypertension [facility] Parmenter, Benign N.P. Office Visit 01/16/2012 10:30a [facility] Jessa 401.1 Hypertension [facility] Parmenter, Benign N.P. Office Visit 01/01/2012 3:20p [facility] Qutaybeh S. 401.1 Hypertension AT [facility] Umer Willingham M.D. 272.0 Hypercholesterolemia Pure 414.01 Coronary Atherosclerosis [place] V42.2 Transplant Heart Valve 424.1 Aortic Valve Disorder Office Visit 05/24/2011 11:40a [facility] Anntaybchris S. 424.1 Aortic Valve Mateo Willingham Disorder 401.1 Hypertension Benign 414.01 Coronary Atherosclerosis [place] V42.2 Transplant Heart Valve 272.0 Hypercholesterolemia Pure Office Visit 12/25/2010 2:20p [facility] Brandon S. 424.1 Aortic Valve Mateo Willingham Disorder 401.1 Hypertension Benign 414.01 Coronary Atherosclerosis [place] V42.2 Transplant Heart Valve Office Visit 06/01/2010 [facility] Qutaybeh S. 401.1 Hypertension 9:00a Patricia Willingham M.D. Benign 424.1 Aortic Valve Disorder 272.0 Hypercholesterolemia Pure 414.01 Coronary Atherosclerosis [place] Office Visit 05/02/2010 9:40a DO Not Use Manager Flight Operations Matthias E. 552.1 Hernia Umbilical AT Albino Welch M.D. W/ Obstruction 401.1 Hypertension Benign 424.1 Aortic Valve Disorder 272.0 Hypercholesterolemia Pure Office Visit 02/01/2010 11:20a DO Not Use Manager Flight Operations AT Matthias EGladys 424.1 Aortic Valve Albino Welch M.D. Disorder 401.1 Hypertension Benign 272.0 Hypercholesterolemia Pure 790.21 Impaired Fasting Glucose Office Visit 01/15/2010 3:40p [facility] Brandon S. 424.1 Aortic Valve Mateo Willingham Disorder 414.01 Coronary Atherosclerosis [place] 401.1 Hypertension Benign V42.2 Transplant Heart Valve Office Visit 12/26/2009 9:00a [facility] Brandon S. 424.1 Aortic Valve Mateo Willingham Disorder 786.05 Shortness Of Breath 414.01 Coronary Atherosclerosis [place] Office Visit 04/19/2009 [facility] Brandon S. 414.01 Coronary 7:00a Cardiology Mateo Willingham Atherosclerosis [place] 424.1 Aortic Valve Disorder 401.1 Hypertension Benign Office Visit 03/30/2009 10:40a [facility] Brandon S. 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 424.1 Aortic Valve Mateo Willingham Disorder 414.01 Coronary Atherosclerosis [place] 401.1 Hypertension Benign 272.4 Hyperlipidemia Other Unspec Office Visit 03/22/2009 10:20a [facility] Brandon S. 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 Nonrheumatic 424.0 Mitral Valve Disorder 433.10 Occlusion & Stenosis Carotid Artery W/O Cerebral Infarction 459.81 Venous Insufficiency (Peripheral) Unspec Office Visit 12/31/2007 3:00p [facility] Matthias Alvares 715.00 Osteoarthrosis Assoc AT Mateo Welch Generalized Site [facility] Unspec 272.0 Hypercholesterolemia Pure 401.1 Hypertension Benign V03.82 Streptococcus Pneumoniae Vaccination Spec Other Plan of Treatment Future Appointment(s):03/01/2019 3:30 pm - Nellie Nelson, N.P. at [facility]04/06/2019 11:00 am - Brandon Willingham M.D. at [facility]02/01/2019 - Nellie Nelson N.P.I50.33 Acute on chronic diastolic ( congestive) heart failureFollow up:OV beginning february. QSM 2018Recommendations:Increase Lasix to 80mg q AM and 40 mg at night Repeat labs in 2 weeks.R94.31 Abnormal electrocardiogram [ECG] [EKG]Z95.2 Presence of prosthetic heart cyzxgF21.0 Nonrheumatic aortic (valve) wighybfnC18.0 Paroxysmal atrial rstwyunpibbyT16.2 Old myocardial infarction
[2019-02-03] MEDS ORDERED: Aspirin 81 mg CHEW TAB* 81 MG TAB.CHEW PO ONE (13:45)
--- NOTE | 2019-02-03 13:45 | ED ---
HPI Chest Pain - HPI Summary HPI Summary: The patient is an 79 y/o M presenting to [facility] with a chief complaint of intermittent episodes of CP starting last night with worsening in the last 30 minutes with constant left anterior CP that radiates to the LUE. He reports associated SOB, diaphoresis, and nausea. He denies vomiting. The pressure pain is currently rated 8/10 in severity. There are no aggravating or alleviating factors. Hx of CHF, HLD, HTN, AZ, aortic valve replacement (with appointment for re-replacement in 6 days). Surgical hx of cardiac stents. FHx of AZ in mother. Former smoker, rare EtOH, no substance use. - History of Current Complaint Time Seen by Provider: 02/03/19 13:39 Hx Obtained From: Patient Onset/Duration: Started Hours Ago - last night, Still Present, Worse Since - 30 minutes ago Timing: Intermittent Initial Severity: Moderate Current Severity: Severe Pain Intensity: 8 Pain Scale Used: 0-10 Numeric Chest Pain Location: Left Anterior Chest Pain Radiates: Yes Chest Pain Radiates To:: Arm - left Character: Pressure/Squeezing Aggravating Factor(s): Nothing Alleviating Factor(s): Nothing Associated Signs and Symptoms: Positive: Chest Pain, Shortness of Breath, Diaphoresis, Nausea. Negative: Vomiting - Additional Pertinent History Primary Care Physician: [id number] - Allergy/Home Medications Allergies/Adverse Reactions: Allergies Allergy/AdvReac Type Severity Reaction Status Date / Time bee venom protein (honey bee) Allergy Anaphylatic Verified 12/10/18 16:24 Shock Home Medications: Home Medications Aspirin EC TAB* [Ecotrin EC Low Dose 81 MG*] 81 mg PO DAILY 02/03/19 [History Confirmed 02/03/19] Ferrous Sulfate TAB* 325 mg PO DAILY 02/03/19 [History Confirmed 02/03/19] Furosemide TAB* [Lasix TAB*] 40 mg PO QPM 02/03/19 [History Confirmed 02/03/19] Furosemide TAB* [Lasix TAB*] 80 mg PO QAM 02/03/19 [History Confirmed 02/03/19] Rivaroxaban TAB(*) [Xarelto 15 mg(*)] 15 mg PO QPM 02/03/19 [History Confirmed 02/03/19] PMH/Surg Hx/FS Hx/Imm Hx Endocrine/Hematology History: Reports: Hx Anticoagulant Therapy Denies: Hx Diabetes Cardiovascular History: Reports: Hx Congestive Heart Failure, Hx Hypercholesterolemia, Hx Hypertension, Hx Myocardial Infarction, Other Cardiovascular Problems/Disorders - aortic v. replacement Denies: Hx Pacemaker/ICD GI History: Denies: Hx Cirrhosis History: Denies: Hx Renal Disease Musculoskeletal History: Reports: Other Musculoskeletal History - osteo- arthritis Sensory History: Reports: Hx Contacts or Glasses, Hx Eye Prosthesis - left Denies: Hx Hearing Aid Opthamlomology History: Reports: Hx Contacts or Glasses, Hx Eye Prosthesis - left Psychiatric History: Denies: Hx Panic Disorder - Cancer History Cancer Type, Location and Year: [place] Hx Chemotherapy: No Hx Radiation Therapy: No - Surgical History Surgery Procedure, Year, and Place: ARTIFICIAL HEART VALVE - [place]. APPENDECTOMY. BILAT INGUINAL HERNIA REPAIRS. LEFT FEMORAL ENDARTERECTOMY W/ VASCULAR XENOSURE PATCH ( NO METAL) and iliac stent-(GORE -VBX STENT - CONDITIONAL FOR MRI) 05/2017 ( [facility]). CARDIAC STENTS. ARTIFICIAL EYE - Lt. PICC-Rt ARM Infectious Disease History: No Infectious Disease History: Denies: Traveled Outside the [place] in Last 30 Days - Family History Known Family History: Positive: Cardiac Disease - Social History Alcohol Use: Rare Hx Substance Use: No Substance Use Type: Reports: None Hx Tobacco Use: Yes Smoking Status (MU): Former Smoker Review of Systems Positive: Skin Diaphoresis Positive: Chest Pain - left anterior pressure Positive: Shortness Of Breath Positive: Nausea. Negative: Vomiting All Other Systems Reviewed And Are Negative: Yes Physical Exam - Summary Physical Exam Summary: VITAL SIGNS: Reviewed. GENERAL: Patient is a well-developed and nourished male who seems uncomfortable in the stretcher. Patient is not in any acute respiratory distress. HEAD AND FACE: No signs of trauma. No ecchymosis, hematomas or skull depressions. No sinus tenderness. EYES: PERRLA, EOMI x 2, No injected conjunctiva, no nystagmus. EARS: Hearing grossly intact. Ear canals and tympanic membranes are within normal limits. MOUTH: Oropharynx within normal limits. NECK: Supple, trachea is midline, no adenopathy, no JVD, no carotid bruit, no c- spine tenderness, neck with full ROM. CHEST: Symmetric, no tenderness at palpation. LUNGS: Clear to auscultation bilaterally. No wheezing or crackles. CVS: Regular rate and rhythm, S1 and S2 present, no murmurs or gallops appreciated. ABDOMEN: Soft, non-tender. No signs of distention. No rebound, no guarding, and no masses palpated. Bowel sounds are normal. EXTREMITIES: FROM in all major joints, no edema, no cyanosis or clubbing. NEURO: Alert and oriented x 3. No acute neurological deficits. Speech is normal and follows commands. SKIN: A little clammy. Warm. Triage Information Reviewed: Yes Vital Signs On Initial Exam: Initial Vitals Temp Pulse Resp BP Pulse Ox 97.5 F 75 20 122/48 100 02/03/19 13:37 02/03/19 13:37 02/03/19 13:37 02/03/19 13:37 02/03/19 13:37 Vital Signs Reviewed: Yes Diagnostics - Vital Signs Vital Signs Temp Pulse Resp BP Pulse Ox 02/03/19 13:37 97.5 F 75 20 122/48 100 - Laboratory Result Diagrams: 02/04/19 04:20 02/04/19 04:20 Lab Statement: Any lab studies that have been ordered have been reviewed, and results considered in the medical decision making process. - Radiology CXR Radiology Interpretation Completed By: Radiologist Summary of Radiographic Findings: No active cardiopulmonary disease. ED physician has reviewed this radiology report. - EKG 1335 Cardiac Rate: NL - 76 BPM EKG Comparison: Other - Changes from EKG taken on 12/10/2018. Summary of EKG Findings: ST depressions in I, aVL, aVF, V1-V6. ST elevations in aVR. Re-Evaluation - Re-Evaluation First Eval Re-Evaluation Time: 14:00 Comment: I discussed the need for admission with the patient. Chest Pain Course/Dx - Course Assessment/Plan: The patient is an 79 y/o M presenting to [facility] with a chief complaint of intermittent episodes of CP starting last night with worsening in the last 30 minutes with constant left anterior CP that radiates to the LUE. He reports associated SOB, diaphoresis, and nausea. He denies vomiting. The pressure pain is currently rated 8/10 in severity. There are no aggravating or alleviating factors. Hx of CHF, HLD, HTN, AZ, aortic valve replacement (with appointment for re-replacement in 6 days). Surgical hx of cardiac stents. FHx of AZ in mother. Former smoker, rare EtOH, no substance use. In the ED course the patient was placed in a court recording monitor, IV access was obtained, and IV fluids were started. EKG shows ST depression in leads I to aVF and aVL, V1 to V6 , and an ST elevation in aVR. I discussed the EKG with Dr. Johnson from cardiology who came to see the patient. She ordered an echocardiogram. And she was discussed case with and Dr. Santana. Blood test results without any significant abnormality except for hemoglobin of 6.7, hematocrit of 20, INR of 2.02, D-Dimer of less than 200, sodium of 137, carbon dioxide of 21, BUN of 54, creatinine of 1.54, glucose of 235, troponin of 0.05, BNP of 173, and TSH of 6.53. Patient declined a rectal exam. He reports no history of bright red per rectum or melena. In the ED course the patient was given an aspirin and metoprolol as requested by Dr. Johnson. The patient will be also given a transfusion of packed red blood cells 2 units. I discussed my physical exam and test results with Dr. Molina from the hospitalist services, and she agrees to admit patient to his services. Patient is hemodynamically stable alert and oriented x 3. - Diagnoses Provider Diagnoses: Chest pain due to CAD, Symptomatic anemia - Provider Notifications Discussed Care Of Patient With: Monique Johnson - goldsmith apprentice Time Discussed With Above Provider: 13:45 Instructed by Provider To: Other - I spoke with Dr. Johnson concernign the patient's EKG; she will see the patient. She states that she will talk to Dr. Santana, ICU junior systems analyst, about the patient. At 1510, I spoke with Dr. Molina concerning the patient. She recommends ordering a D-Dimer test. She accepts the patient for admission. Discharge - Sign-Out/Discharge Documenting (check all that apply): Patient Departure - Patient is accepted for admission to [facility] for further care by Dr. Molina. Patient Received Moderate/Deep Sedation with Procedure: No - Discharge Plan Condition: Stable Disposition: ADMITTED TO [facility] - Billing Disposition and Condition Condition: STABLE Disposition: Admitted to [facility] - Attestation Statements Document Initiated by Moreibe: Yes Documenting Scribe: Alem Wolf Provider For Whom Scribe is Documenting (Include Credential): Dr. Matthias Baca MD Scribe Attestation: I, Alem Wolf, scribed for Dr. Matthias Baca MD on 02/04/19 at 0757. Scribe Documentation Reviewed: Yes Provider Attestation: The documentation as recorded by the scribe, Alem Wolf accurately reflects the service I personally performed and the decisions made by me, Dr. Matthias Baca MD Status of Scribe Document: Viewed
[2019-02-03] MEDS ORDERED: Metoprolol Tartrate TAB* 25 MG PO ONE (13:46)
[2019-02-03 14:03] LABS: ABS Basophils 0.1 10^3/ul (0-0.2); ABS Eosinophils 0.1 10^3/ul (0-0.6); ABS Lymphocytes 1.6 10^3/ul (1.0-4.8); ABS Monocytes 0.7 10^3/ul (0-0.8); ABS Neutrophils 5.8 10^3/ul (1.5-7.7); Eosinophil % 1.6 %; Hematocrit 20 % (42-52); Hemoglobin 6.7 g/dL (14.0-18.0); Lymphocyte % 19.2 %; Mean Corpuscular HGB Conc 33 g/dL (31-36); Mean Corpuscular Hemoglobin 28 pg (27-31); Mean Corpuscular Volume 84 fL (80-94); Mean Platelet Volume 7.3 fL (7.4-10.4); Nucleated Red Blood Cells % 0.1; Platelet Count 262 10^3/uL (150-450); Red Blood Count 2.41 10^6 /uL (4.18-5.48); Red Cell Distribution Width 25 % (10-15); White Blood Count 8.4 10^3/uL (3.5-10.8)
[2019-02-03 14:05] LABS: INR 2.02 (0.82-1.09)
[2019-02-03 14:23] LABS: Albumin 3.5 g/dL (3.2-5.2); Albumin/Globulin Ratio 1.3 (1-3); BUN/Creatinine Ratio 42.2 (8-20); Calcium 9.1 mg/dL (8.6-10.3); EGFR African American 65.4 (>60); EGFR Non-African American 54.1 (>60); Globulin 2.7 g/dL (2-4); Potassium 4.5 mmol/L (3.5-5.0); Total Bilirubin 0.5 mg/dL (0.2-1.0); Total Protein 6.2 g/dL (6.4-8.9)
[2019-02-03 14:26] LABS: Troponin I 0.05 ng/mL (<0.04)
[2019-02-03] MEDS ORDERED: NS 0.9% 1000 ML** 1,000 ML IV SCH (14:30)
[2019-02-03 15:36] LABS: CKMB ng/mL 2.5 ng/mL (0.6-6.3)
--- NOTE | 2019-02-03 15:49 | ECHO ---
*[facility]* [place] [address] Fax #: [phone] Transthoracic Echocardiogram Patient: Suhail Castellon : 1940 Study Date: 02/03/2019 Age: 79 Gender: M HR: 74 bpm Height: 66.9 in /170 cm BSA: 1.95 m^2 Weight: 173.8 lb /79 kg BMI: 27.3 kg/m^2 *Photograph Retoucher: Jessa Gresham [facility] *Reading Physician: * Monique Johnson MD Indications: Chest Pain, unspecified. History: Atrial fibrillation. Congestive heart failure. PMH: Myocardial infarction. Risk factors: Hypertension. Dyslipidemia. Labs, prior tests, procedures, and surgery: Catheterization. There was a stenosis which was treated with a stent. Aortic valve replacement with a bioprosthetic valve. Conclusions Summary: 1. Left ventricle: The cavity size is normal. Wall thickness is mildly increased. Systolic function is normal. The estimated ejection fraction is 60-65%. Features are consistent with a pseudonormal left ventricular filling pattern, with concomitant abnormal relaxation and increased filling pressure (grade 2 diastolic dysfunction). 2. Right ventricle: Systolic function is normal. 3. Mitral valve: There is moderate to severe regurgitation. 4. Aortic valve: There is a bioprosthetic valve. Valve mobility is restricted. The findings are consistent with moderate to severe stenosis. The peak systolic velocity is 3.9 m/sec. The mean systolic gradient is 33.0 mm Hg. The valve area by the velocity-time integral method is 0.80 cm^2. 5. Pulmonary arteries: Systolic pressure can not be accurately estimated. 6. Compared with prior echocardiogram of 12/14/18, ejection fraction is stable, prior diastolic function estimated as restrictive, mitral regurgitation is stable, aortic valve function stable. Study data: Transthoracic echocardiogram. Procedure: Transthoracic echocardiography was performed. Image quality was good. Complete 2D, spectral Doppler, and color flow Doppler. Location: Emergency department. Patient status: Inpatient. Patient room number: 7. Study status: [facility]. Rhythm: Normal sinus rhythm. Findings Left ventricle: The cavity size is normal. Wall thickness is mildly increased. Systolic function is normal. The estimated ejection fraction is 60-65%. Wall motion is normal; there are no regional wall motion abnormalities. Features are consistent with a pseudonormal left ventricular filling pattern, with concomitant abnormal relaxation and increased filling pressure (grade 2 diastolic dysfunction). Right ventricle: The cavity size is normal. Systolic function is normal. Left atrium: The atrium is severely dilated. Right atrium: The atrium is normal in size. Mitral valve: The annulus is mildly calcified. The leaflets are mildly thickened. There is no evidence of stenosis. There is moderate to severe regurgitation. Aortic valve: There is a bioprosthetic valve. Valve mobility is restricted. The findings are consistent with moderate to severe stenosis. There is mild regurgitation. Tricuspid valve: The leaflets are normal thickness. There is no evidence of stenosis. There is trivial regurgitation. Pulmonic valve: The leaflets are normal thickness. There is no evidence of stenosis. There is trivial regurgitation. Aorta: Aortic root: The aortic root is appears normal. Ascending aorta: The ascending aorta is poorly visualized. Aortic arch: The aortic arch is poorly visualized. Pericardium: There is no significant pericardial effusion. Pulmonary arteries: The main pulmonary artery is normal-sized. Systolic pressure can not be accurately estimated. Systemic veins: Inferior vena cava: Not well visualized. Measurements Left ventricle Value 12/14/2018 Ref Right atrium Value 12/14/2018 Ref JULIO CESAR, LAX 5.2 cm 5.5 4.2 SI dim, ES 5.3 cm 5.3 3.4 - 5.3 - ML dim, ES, 3.1 cm 3.9 2.6 - 4.4 5.8 A4C ESD, LAX (H) 4.3 cm 3.9 2.5 Estimated 8 mm Hg 8 --------- - RAP 4.0 FS, LAX (L) 17 % 29 25 - Aortic valve Value 12/14/2018 Ref 43 Oscar diam, 1.8 cm 1.8 --------- PW, ED, (H) 1.1 cm 1.1 0.6 ED LAX - Peak v, S 3.9 m/sec 4.1 --------- 1.0 VTI, S 86.0 cm 102.0 --------- EF (L) 36 % 55 52 - Mean grad, 33.0 mm Hg 35.0 --------- 72 S E', lat (L) 8.5 cm/sec 6.5 >=10 Peak grad, 62.0 mm Hg 66.0 -- ------- oscar, TDI .0 S E/e', lat 15 18 ---- MANDI, VTI 0.80 cm^2 0.70 ----- ---- oscar, TDI MANDI, Vmax 0.80 cm^2 0.60 --------- E', med (L) 3.5 cm/sec 2.5 >=7. LVOT/AV, 0.3 0.21 -- ------- oscar, TDI 0 Vmean ratio E/e', med 36 47 ---- oscar, TDI Mitral valve Value 12/14/2018 Ref E', avg, 6.0 cm/sec 4.5 ---- Peak E 1.25 m/sec 1.18 ----- ---- TDI Peak A 0.68 m/sec 0.25 --------- E/e', avg, (H) 21 26 <=14 Decel time 161 ms 190 -- ------- TDI PHT 88 ms 133 --------- Mean grad, 3.0 mm Hg 1.0 --------- LVOT Value 12/14/2018 Ref D Diam, S 2.00 cm 2.00 ---- Peak grad, 7.0 mm Hg 6.0 --------- Peak jacki, 1 m/sec 0.81 ---- D S Peak E/A 1.8 4.7 --------- VTI, S 21.0 cm 21.5 ---- ratio Peak grad, 4 mm Hg 3 ---- MVA, PHT 2.5 cm^2 1.7 --------- S ERO, PISA 0.26 cm^2 0.08 --------- Mean grad, 2 mm Hg 1 ---- MR vol, 39 ml 17 --------- S PISA MR 36 % 20 --------- Ventricular septum Value 12/14/2018 Ref fraction, IVS, ED (H) 1.2 cm 1.2 0.6 PISA - 1.0 Pulmonic valve Value 12/14/2018 Ref Peak v, S 1.09 m/sec 1 --------- Right ventricle Value 12/14/2018 Ref Peak grad, 5.0 mm Hg 4.0 --------- JULIO CESAR, LAX 3.0 cm 3.3 ---- S JULIO CESAR minor 2.7 cm 3.4 1.9 ax, A4C - Aortic root Value 12/14/2018 Ref mid 3.5 Root diam 2.5 cm 2.7 <4.1 Left atrium Value 12/14/2018 Ref AP dim, ES (H) 5.70 cm 6.10 3.00 - 4.00 ML dim, 6.2 cm 5.5 ---- A4C SI dim, 6.1 cm 6.1 ---- A4C Vol/bsa, (H) 78 ml/m^2 54 16 - ES, A/L 34 Legend: (L) and (H) rafa values outside specified reference range. Prepared and electronically signed by Monique Johnson MD 02/03/2019 15:48
[2019-02-03] MEDS ORDERED: Pantoprazole IV* 40 MG IV ONE (16:11)
[2019-02-03] MEDS: NS 0.9% 1000 ML** 1,000 ML IV SCH (17:21)
[2019-02-03] MEDS: Atorvastatin* 40 MG TAB PO SCH (17:42)
[2019-02-03] MEDS: Pantoprazole* 80 mg IN NS 80 MG/250 ML BAG IV SCH (17:49)
--- NOTE | 2019-02-03 18:52 | CONS ---
GASTROENTEROLOGY CONSULT REPORT: DATE OF CONSULT: 02/03/19 REQUESTING PROVIDER: Dr. Veena Molina. LOCATION: ICU. REASON FOR CONSULT: Anemia and history of GI bleed. HISTORY OF PRESENT ILLNESS: Mr. Castellon is an 79-year-old gentleman with a history of coronary artery disease; status post stent, peripheral artery disease ; status post fem-pop bypass, history of heart failure, atrial fibrillation; on Xarelto, aortic stenosis; status post valve replacement with recurrent moderate- to-severe aortic stenosis, and recent GI bleed of unclear etiology who is admitted to the hospital with chest pain and anemia. Mr. Castellon and his provided history. History also obtained from last hospitalization discharge summary from November. To review, Mr. Castellon was visiting his son in [place] in mid November. He developed melena and presented to the hospital. He was diagnosed with a GI bleed and transfused with a total of 3 units. He reports that he had an upper and lower endoscopy performed which were unrevealing for a source. A capsule endoscopy was suggested, but the plan was to perform this in the outpatient setting. The patient was on Plavix, which was discontinued after this visit. He was continued on his home Xarelto at discharge. He had significant fluid retention following this hospitalization and upon return to [place], he was hospitalized for several days at [facility] for acute exacerbation of heart failure. He was diuresed and was discharged with a plan to continue holding his Plavix. Some of his cardiac medications were changed. Hemoglobin at the time of that discharge was 8.3. Repeat blood count on 01/22/19 was 9.8. Of note, the patient has been anemic with a hemoglobin below 11 dating back to June 2017. Mr. Castellon was in usual state of health until last night, when he developed chest pain. His chest pain had persisted, which prompted him to present to the ED. He also reported shortness of breath and nausea without vomiting. In the ED, he was noted to have a hemoglobin of 6.7 with a hematocrit of 20. INR was 2. Troponin mildly elevated at 0.05. BNP elevated at 873. There were some possible ST depressions on EKG. Cardiology was consulted. Plan was to admit to the ICU. GI consulted. On interview, Mr. Castellon states that he has no GI symptoms. He feels that his stool has been dark brown recently, although he acknowledges that he did not look at the stool closely last night. He had more constipation last week, although this is improved recently. He has a bowel movement every other day typically. Denies any significant nausea, vomiting, abdominal pain, GERD, dysphagia, or red blood in the stool. He was started on a PPI as of the last hospitalization, so he continues on this. The patient notes that the chest pain is improved since he has been in the ER. PAST MEDICAL HISTORY: 1. CAD with a history of an NM in the setting of a fem-pop bypass. Stents placed in the LAD. 2. History of aortic stenosis status post placement of a bioprosthetic valve approximately 10 years ago. Undergoing evaluation for possible replacement valve as he has jktcpgnn-ea-yrpnsh aortic stenosis. 3. Atrial fibrillation, on anticoagulation. 4. Diastolic congestive heart failure. 5. Vascular disease, status post fem-pop bypass. 6. Recent GI bleed of unclear etiology. 7. Hypertension. 8. Hyperlipidemia. 9. History of kidney stones. 10. History of bladder cancer. PAST SURGICAL HISTORY: 1. Cardiac stent placement. 2. Aortic valve replacement. 3. Bladder tumor removal. 4. Bilateral inguinal hernia repairs. 5. Appendectomy. 6. Fem-pop bypass, May 2017. 7. Artificial eye, left. MEDICATIONS: 1. Amiodarone 200 mg daily. 2. Aspirin 81 daily. 3. Atorvastatin 40 daily. 4. Vitamin D 1000 units daily. 5. Iron 325 daily. 6. Furosemide 80 mg q.a.m. and 40 mg q.p.m. 7. Protonix 40 mg daily. 8. Xarelto 15 mg every evening - last dose last night. 9. Lisinopril 2.5 mg daily. 10. Metoprolol XL 25 mg daily. ALLERGIES: Bee venom. No known drug allergies. FAMILY HISTORY: Mother with a history of an NM. Diabetes in multiple family members. No GI or liver disease. SOCIAL HISTORY: The patient is . is supportive and present at bedside. He used to work at [employer]. Retired now. Smoked until 1981. Social alcohol use, which is uncommon. No drug use. REVIEW OF SYSTEMS: Complete review of systems is negative, except as above. PHYSICAL EXAM: Vital Signs: Temp 97.1, heart rate 61, blood pressure 117/42, 97% on room air. General: Pleasant, elderly gentleman. Appears comfortable. at bedside. HEENT: Mucous membranes are moist. Left eye prosthesis. Cardiovascular: Systolic ejection murmur. Rate regular and rhythm regular. Lungs: Clear to auscultation bilaterally. Abdomen: Soft, nontender, nondistended. Extremities: Mild edema. Skin: Pale. No jaundice. DIAGNOSTIC STUDIES/LAB DATA: Labs reviewed. White count 8.4, hemoglobin 6.7, and hematocrit 20. This represents change from hemoglobin of 9.8 on 01/22/19. Platelet count is normal. INR is 2. Comprehensive panel notable for hyponatremia at 133, creatinine 1.28; which is lower than baseline, BUN is 54; which is slightly higher than his baseline. Liver enzymes normal. Troponin 0.05. BNP 873. Albumin 3.5. TSH 6.53. Imaging: Chest x-ray performed today without active cardiopulmonary disease. Echocardiogram performed today demonstrates EF of 60% to 65%, grade 2 diastolic dysfunction, wbnhfuyb-vw-fcbrty mitral valve regurgitation, bioprosthetic aortic valve with cvsgatuq-yb-kjqute stenosis. IMPRESSION AND RECOMMENDATIONS: Mr. Castellon is an 79-year-old gentleman with multiple medical comorbidities including coronary artery disease; status post stents, atrial fibrillation; on anticoagulation, peripheral vascular disease, aortic stenosis; status post bioprosthetic valve with recurrent moderate-to- severe aortic stenosis, and recent gastrointestinal bleed of unclear etiology who is admitted with symptomatic anemia and chest pain. The patient is hemodynamically stable. Chest pain seems to have abated at the time of interview. The patient denies seeing any overt bleeding, although nursing mentioned that there was some darker colored stool seen around the anus when they were getting him admitted. His hemoglobin is certainly several grams less than it was in late December. Given his recent hospitalization for a suspected gastrointestinal bleed, Mr. Castellon' current presentation is again suggestive of a recurrent gastrointestinal bleed. Mr. Castellon reports having an EGD and colonoscopy during the November admission, which were unremarkable. The team was suspicious of a small-bowel source of bleeding, although he has not yet had a capsule study. He is certainly at risk for arteriovenous malformations given his history of aortic stenosis (Heyde syndrome). 1. Agree with transfusions for symptomatic anemia, particularly in the setting of coronary artery disease. The patient is due to receive 2 units of blood. 2. Continue to monitor CBC every 6 to 8 hours. 3. Cardiology has been consulted and we will follow given chest pain and EKG changes. We will touch base with cardiology before any planned procedure to ensure the patient is an appropriate candidate from a cardiac standpoint. 4. Continue PPI and increase to b.i.d. for now. 5. Hold Xarelto for now. 6. N.p.o. after midnight. We will tentatively plan for an EGD versus push enteroscopy tomorrow assuming the patient is stable from a cardiac standpoint. 7. Please request EGD and colon reports from the hospitalization in [place]. Thank you very much for this consult. GI will continue to follow. Please call GI with any questions or acute clinical change. [id number]/[facility]PS #: [id number] S[place]
[2019-02-03 19:52] LABS: Troponin I 0.39 ng/mL (<0.04)
--- NOTE | 2019-02-03 20:58 | HP ---
CC: Dr. Welch; Dr. Willingham; Dr. Johnson; Dr. Guerrero * HISTORY AND PHYSICAL: DATE OF ADMISSION: 02/03/19 PROVIDER: Veena Molina MD PRIMARY CARE PROVIDER: Dr. Welch. AIR DISPATCHER: Dr. Willingham. CONSULTING AIR DISPATCHER: Dr. Johnson. CONSULTING DIRECTOR OF TRANSPORTATION: Dr. Guerrero. TIME OF EVALUATION: 3:35 p.m. CHIEF COMPLAINT: Chest pain. HISTORY OF PRESENT ILLNESS: Mr. Castellon is an 79-year-old male with a complex past medical history that includes coronary artery disease, peripheral vascular disease, DVT, atrial fibrillation, congestive heart failure, recent GI bleed, who presents to the emergency room with complaints of chest pain, shortness of breath, and dizziness. The patient has had a complicated medical history that got even more complicated in November. The patient went to [place] and he developed GI bleed at that time. He was admitted at [facility], and during that hospital stay , he was found to have a GI bleed with an endoscopy that showed mild proximal gastritis, mild duodenitis, and possible Zavala's epithelial changes and a colonoscopy that showed mild pandiverticulosis, small hemorrhoids, and small polyp in the transverse colon. The recommendation at that point was for the patient to have capsule endoscopy when he returned to [place]. The recommendation was to resume his anticoagulation, and at that time his Plavix was changed to aspirin and Xarelto was resumed. He had a hemoglobin of 6.7 during that admission and the admission was also complicated by a type 2 non-ST elevation myocardial infarction in the setting of anemia in a patient with known aortic stenosis. He was discharged, returned to [place], and then was admitted to [facility] from December 10 to December 16 with acute exacerbation of heart failure. The impression was that this was secondary to his diuretics being held while in [place] and also fluid resuscitation including PRBC transfusions. Prior to his admission in [place], the patient was on furosemide 20 mg p.o. daily and after discharge from [facility] end of November, he was on furosemide 40 mg p.o. b.i.d. The patient states that his symptoms have waxed and waned in the sense that he has good days and some other days he is more short of breath than usual. He left the hospital in [place] weighing 190 pounds and he is now down to 174. He was just seen in followup at Dr. Willingham's office on 02/01/19 and the impression at that time was that the patient still had some extra fluid on board and the recommendation was to increase his morning Lasix to 80 mg and continue his aspirin dose of 40 mg. He is being evaluated to have another aortic valve replacement and he actually has an appointment scheduled on . He states that yesterday he started to feel weaker than usual and last night he had some chest pain, but this morning he says the symptoms were worse, that he was feeling very weak, lightheaded, was diaphoretic, the chest pain persisted, so his decided to bring him to the emergency room for further evaluation. He denies abdominal pain, nausea, or vomiting. He says that he had a bowel movement today and he did not look at the color, so he is not sure if the stool is dark again. He denies, fever, chills, nausea, vomiting, diarrhea, or urinary complaints. PAST MEDICAL HISTORY: 1. Coronary artery disease with history of non-ST elevation TN and cardiogenic shock after peripheral arterial disease surgery due to thrombus of the distal left main proximal LAD with drug-eluting stent placed to proximal LAD at [facility] in June 2017. 2. Peripheral arterial disease with left femoral endarterectomy with left iliac stent done in May 2017 at [facility]. 3. Chronic diastolic heart failure with ejection fraction of 50% to 55%. 4. 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 5. History of right lower extremity DVT provoked after surgery. 6. Paroxysmal atrial fibrillation, chronically on amiodarone and Xarelto. 7. CKD stage III. 8. Gqhytdeq-aa-uxvlpf mitral insufficiency. 9. Moderate tricuspid insufficiency. 10. Hyperlipidemia. 11. Moderate pulmonary hypertension. 12. Jjkmdlvm-ya-rqzvki aortic prosthetic valve re-stenosis. 13. Recent episode of GI bleed of unclear location in November 2018 with negative endoscopy and colonoscopy. MEDICATIONS: 1. Amiodarone 200 mg p.o. at bedtime. 2. Aspirin 81 mg p.o. daily. 3. Atorvastatin 40 mg p.o. at bedtime. 4. Cholecalciferol 1000 units p.o. daily. 5. Ferrous sulphate 325 mg p.o. daily. 6. Furosemide 80 mg in the morning and 40 mg p.o. in the evening. 7. Lisinopril 2.5 mg p.o. daily. 8. Metoprolol succinate 25 mg p.o. daily. 9. Pantoprazole 40 mg p.o. daily. 10. Xarelto 15 mg p.o. at bedtime. ALLERGIES: BEE VENOM. FAMILY HISTORY: Father passed due to a motor vehicle accident at age 6565 years old, mother passed at age 62 from coronary artery disease and complications from CABG, his mother and brothers also have had history of diabetes, a sister had melanoma. SOCIAL HISTORY: The patient was a smoker, a pack a day for 20 years, he quit in 1981. There is occasional use of alcohol. No illicit drug use. Surrogate decision maker is his , Marissa Castellon, phone number is [phone]. REVIEW OF SYSTEMS: A 14-point review of systems was performed and all the pertinent negative and positive findings are in the HPI. PHYSICAL EXAMINATION GENERAL: The patient is an elderly gentleman, frail appearing, sitting up in the ED stretcher, in no acute distress. VITAL SIGNS: Temperature 97.8, heart rate is 76, respiratory rate is 18, oxygen saturation is 97% on room air. Blood pressure was 98/31, but after receiving some fluids it went up to 117/42. HEENT: Head is atraumatic, normocephalic. Moist mucous membranes with some pallor. CHEST: Breath sounds bilaterally with no added sounds. CVS: Normal S1, S2. Regular rate and rhythm with systolic murmur. ABDOMEN: Soft and nontender. Bowel sounds are present. EXTREMITIES: The patient has trace bilateral lower extremity pitting edema. NEUROLOGIC: He is alert and oriented x3. Able to move all 4 extremities. DIAGNOSTIC STUDIES/LAB DATA: The patient had a CBC that showed WBC of 8.4, hemoglobin 6.7, hematocrit 20, platelets 262 with 69% neutrophils. INR is 2. D -dimer is less than 200. Chemistry showed sodium 143, potassium 4.5, chloride of 102, bicarb of 21, BUN of 54, creatinine of 1.28, glucose 235, calcium is 9.1 , magnesium is 2.0. LFTs are normal. Troponin is 0.05. BNP 873. TSH is 6.5. Chest x-ray showed no active cardiopulmonary disease. EKG done on 02/03 at 1:45 p.m. shows sinus rhythm at 76 beats per minute with diffuse ST depressions in II, III, aVF, V2 through V6 and those are new when compared to his prior EKG from 12/10. ASSESSMENT AND PLAN: Mr. Castellon is an 79-year-old male with complex past medical history that includes coronary artery disease, peripheral vascular disease, paroxysmal atrial fibrillation, chronic kidney disease stage III, aortic stenosis, status post aortic valve replacement with restenosis, recent admission to a hospital in [place] with a gastrointestinal bleed and recent admission to [facility] with congestive heart failure exacerbation, who presents to the emergency room with complaints of chest pain, shortness of breath, dizziness , and diaphoresis, found to have demand ischemia secondary to severe anemia likely in the setting of recurrent gastrointestinal bleed. 1. Gastrointestinal bleed. The source is likely his small bowel as he had an upper and lower endoscopy done in [place] that were negative for a source. The patient states that he did not pay attention to the color of his bowel movements earlier today and yesterday, so it is unclear if he is having melena again. I suspect his source is higher as his BUN is up to 54. On the other hand, he is being on a higher dose of diuretics since his discharge in November. I am going to hold the patient's Xarelto for now. We will continue his aspirin due to his complicated history of coronary artery disease and peripheral vascular disease. He will be started on a Protonix drip and a GI consultation was requested with Dr. Guerrero as he may be a candidate for push enteroscopy. 2. Acute blood loss anemia. The patient will receive 2 PRBCs and we are going to monitor his H and H. At this point, he is hypotensive, so I am holding his diuretics, but we will have to watch his fluid status closely. 3. EKG changes with elevated troponin. I suspect this is a demand ischemia in the setting of anemia. A cardiology consultation was requested with Dr. Johnson and an echocardiogram will be performed. We will trend troponins. The patient received his Xarelto today. The plan is to start a heparin drip tomorrow depending on how he proceeds with his gastrointestinal bleed, but at least with heparin drip we will be able to stop the medication quickly in case the gastrointestinal bleed became severe. The patient will be continued on aspirin and atorvastatin. For now, we are going to hold his metoprolol because of his hypotension, but if his blood pressure improves he may receive low-dose metoprolol. 4. Chronic kidney disease stage III. The patient's creatinine is at his baseline and the fact that his BUN is trending up, it is suggestive of upper gastrointestinal bleed. We will continue to monitor his renal function. 5. Hyperglycemia. The patient does not have a diagnosis of diabetes and the random glucose checked in the emergency room showed glucose of 235. His last A1c was 6.6 last year. I am going to repeat his hemoglobin A1c, but it is likely that the patient also has diabetes. 6. Paroxysmal atrial fibrillation. The patient is in sinus rhythm at this time. His CHADS2-VASc score is 5. He took the Xarelto today, but we are going to hold the medication, and depending on how he progresses, we will start a heparin drip tomorrow. 7. Aortic stenosis. The patient has an appointment scheduled 02/09/19 for reevaluation for another aortic valve replacement. He does have moderate-to- severe aortic stenosis, but with all the complications he has had so far, he may be better served with a TAVR. In any case, he needs to have his GI issues settled before he is able to pursue any cardiac procedure. 7. DVT prophylaxis. The patient has a score of 5 on the DVT prophylaxis assessment guide. Pharmacological prophylaxis is contraindicated in the setting of gastrointestinal bleed and SCDs will be placed. 8. Code status is full. TIME SPENT: Approximately 70 minutes of critical care time was spent to complete the admission. [id number]/[facility] #: [id number] [place]
[2019-02-03 22:02] LABS: Urine Appearance Clear; Urine Bilirubin Negative (Negative); Urine Blood Negative (Negative); Urine Color Yellow; Urine Glucose Negative (Negative); Urine Ketones Negative (Negative); Urine Nitrite Negative (Negative); Urine Protein Negative (Negative); Urine Specific Gravity 1.013 (1.010-1.030); Urine Urobilinogen Negative (Negative)
--- NOTE | 2019-02-03 22:05 | CONS ---
CC: Hospitalist Service; Dr. Wililngham; Dr. Martinez * CARDIOLOGY CONSULTATION: DATE OF CONSULT: 02/03/19 REASON FOR CONSULT: Abnormal ECG and chest pain. The patient's chief complaint was epigastric and chest discomfort. HISTORY OF PRESENT ILLNESS: Mr. Castellon is an 79-year-old gentleman followed by Dr. Willingham with an extensive cardiac history including aortic valve replacement for aortic stenosis, coronary artery disease with previous stents, and history of peripheral vascular disease. He was admitted in November with GI bleeding and last seen by Cardiology in the office on 02/01/19. The patient was present with his . They both state that around midnight the patient had some chest discomfort, epigastric discomfort as well as increased belching and nausea. This was associated with increased shortness of breath and diaphoresis as well. He went to sleep, but awoke with persistent pain and belching and presented to the emergency room. In the emergency room, initial EKG showed diffuse ST depression including the inferior leads and precordial leads and although his baseline ECG is not normal , this is significantly more pronounced and there was concern about a posterior STEMI. There were no acute medication adjustments at the recent visit and the patient could not elicit any acute changes in the patient's activity. PAST MEDICAL HISTORY: 1. Aortic valve stenosis, status post aortic valve replacement (01/09/10, [facility], 21 mm pericardial valve). 2. Coronary artery disease (2017 non-STEMI, complicated by cardiogenic shock with thrombus in the distal left main, status post drug-eluting stent to proximal LAD, possible complete total obstruction of the left circ). 3. Peripheral vascular disease, status post left femoral endarterectomy and left iliac stent, May 2017, Dr. Zimmerman [facility]. 4. Chronic renal insufficiency. 5. Paroxysmal AFib. 6. DVT. 7. Bladder cancer. 8. Kidney stones. 9. Hypertension. 10. Dyslipidemia. 11. Congestive heart failure. 12. Mitral insufficiency, moderate to severe in the past. 13. Tricuspid insufficiency, moderate. 14. Congestive heart failure. 15. History of pulmonary hypertension. Hospitalization in November 2018 reviewed, documents the patient presenting with melena and GI bleeding requiring transfusions. He then presented with congestive heart failure. His Xarelto dose was lowered, diuretics resumed. He was referred to Interventional Cardiology to look into aortic valve replacement/ TAVR (Dr. Tanner Martinez). PAST SURGICAL HISTORY: Includes: 1. Inguinal hernia repairs, distant. 2. Bladder surgery, 2001, tumors removed. 3. Lithotripsy. 4. Appendectomy, 1972. OUTPATIENT MEDICATIONS: Included: 1. Xarelto 15 mg a day (decreased in November for GI bleeding from 20 mg a day). 2. Metoprolol ER 25 mg a day. 3. EpiPen p.r.n. 4. Amiodarone 100 mg a day. 5. Tramadol p.r.n. 6. Tylenol ER 650 mg p.r.n. 7. Protonix 40 mg a day. 8. Vitamin D 1000 units a day. 9. Lisinopril 2.5 mg a day. 10. Atorvastatin 40 mg a day. 11. Aspirin 81 mg a day. 12. Iron 240 mg a day. 13. Lasix 40 mg b.i.d. ALLERGIES: He has no known medication allergies. FAMILY HISTORY: Positive for coronary artery disease. His mother at age 62 with a history of [place] and bypass surgery. Has 16 siblings and his father of a motor vehicle accident at age 65. SOCIAL HISTORY: He lives with his spouse. He is a retired machinist supervisor outside, former smoker, quit in 1981, rare alcohol intake. No history of recreational drug use. REVIEW OF SYSTEMS: Positive for chest discomfort, belching, nausea, sweating, negative for orthopnea. No recent fever, chills, sweats, hematuria, or dysuria. Positive for shortness of breath at the time of chest discomfort. All other 11-point review of systems are negative. PHYSICAL EXAM: The patient is 5 feet 7 inches, weighs 179 pounds with a BMI of 28. Vitals: On arrival to the emergency room at the time I saw him, blood pressure 122/48, pulse was 75, respiratory rate was 20, and oxygen saturation on room air 100%. He was afebrile, 97.5. General Appearance: An elderly gentleman, appears uncomfortable, getting IVs put in. Psychologically, cooperative but under duress. Skin: Without cyanosis or rashes. HEENT: Mucous membranes moist. Neck: Without appreciable thyromegaly. Breath sounds were clear, free of wheezes, rales, or rhonchi. Coronary: S1, S2, regular with a loudly peaking systolic murmur heard in the right upper sternal border. Abdomen: Suboptimal exam, no appreciable hepatomegaly. Extremities: Mildly diaphoretic, did not get a full exam in the lower extremities due to getting an echo and IVs at the time of my exam. DIAGNOSTIC STUDIES/LAB DATA: The patient's initial EKG done in the emergency room today showed regular atrial rhythm, P wave is best seen in lead 1, probably ectopic atrial rhythm with a first-degree AV block, right bundle- branch block at a rate of 76 beats a minute, QRS axis +30. Diffuse ST depression V2 through V6, 1, aVL, and inferior leads 2 and aVF. When compared with his most recent baseline from 12/10/18, the rate has increased and the ST depression is new. The right bundle- branch block is new. Labs show white count 8.4, hematocrit 20 (was 31 on 01/22/19), platelets 262. INR 2.02. D-dimer less than 200. Sodium 133, potassium 4.5, chloride 102, bicarb 21, BUN 54, creatinine 1.3, glucose 235. Normal transaminases. Troponin #1, 0.05. BNP 873. TSH 6.53. (Baseline BUN was 34 on 01/22/19). ( Baseline creatinine in 2019 has ranged from a low of 1.28 to a high of 1.58). The most recent lipid panel is from 12/11/18 showing total cholesterol 68, triglycerides 55, LDL cholesterol 29, and HDL cholesterol 28. Echocardiogram done in the emergency room today showed mild left ventricular hypertrophy with an ejection fraction of 60% to 65% with pseudonormal diastolic filling, [id number] mitral insufficiency, bioprosthetic aortic valve with [id number] aortic valve stenosis (mean gradient 33 mmHg, valve area 0.8 sq.cm). Unable to calculate PA pressure. IMPRESSION: This is a complex patient presenting with chest discomfort, shortness of breath, diaphoresis, whose EKG shows diffuse ST depression. The patient's hematocrit has dropped and BUN is elevated out of proportion to his creatinine, and I suspect that he is again having an acute GI bleed. I feel the EKG changes are secondary to the stress of anemia in the setting of his significant prosthetic aortic valve stenosis and he is at risk for demand ischemia. The patient is not having an acute ST elevation myocardial infarction, and I do not feel he needs to go directly to the laborer car [facility]. Furthermore, with evidence of active bleeding, he is not a candidate for any interventional procedure right now. I recommend we stop the Xarelto as he is not in atrial fibrillation. We could either hold it altogether, consider using unfractionated heparin, but as long as he is on a monitor, I think we can hold anticoagulation altogether. I would recommend holding his aspirin as well until his gastrointestinal situation is sorted out and stabilized. For the patient's aortic valve stenosis, we can just provide supportive care and re- refer back to Dr. Martinez once stabilized. For the patient's coronary artery disease and peripheral vascular disease, continue with cholesterol lowering and risk factor modification. We can trend his troponins. I would recommend continuation of the metoprolol to decrease the work on the heart. For the patient's gastrointestinal bleeding, I recommend evaluation to determine what is causing his recurrent bleeds and optimize treatment so that we can proceed with his valve replacement. He is at risk for AV malformations, but also at risk for other sources of gastrointestinal bleeding including ulcers. From a cardiac standpoint, although Mr. Castellon' aortic stenosis puts him at risk , his troponins in August, November, and this admission have remained quite low and I think the risk of acute severe ischemia is minimal as he has been under significant metabolic stress. Periprocedural considerations would be to avoid dropping his blood pressure or over-hydration leading to congestive heart failure due to the patient's tight aortic stenosis. If transfusions are decided to be done, I would do them slowly with diuretic chasers carefully monitoring fluid status. Cardiology will follow with this gentleman. Thank you for allowing me to assist in his care. [id number]/[facility] #: [id number] SULAIMAN
[2019-02-03 23:15] LABS: Hematocrit 25 % (42-52); Hemoglobin 8.3 g/dL (14.0-18.0)
[2019-02-03 23:36] LABS: Troponin I 0.88 ng/mL (<0.04)
[2019-02-04] MEDS: NS 0.9% 1000 ML** 1,000 ML IV SCH ×2 (01:38→12:06)
[2019-02-04] MEDS: Amiodarone TAB* 200 MG PO SCH ×2 (01:38→20:04)
[2019-02-04] MEDS: Pantoprazole* 80 mg IN NS 80 MG/250 ML BAG IV SCH ×2 (01:38→14:33)
[2019-02-04 04:34] LABS: Hematocrit 24 % (42-52); Mean Corpuscular HGB Conc 34 g/dL (31-36); Mean Corpuscular Hemoglobin 29 pg (27-31); Mean Corpuscular Volume 84 fL (80-94); Mean Platelet Volume 7.2 fL (7.4-10.4); Platelet Count 195 10^3/uL (150-450); Red Cell Distribution Width 20 % (10-15)
[2019-02-04 04:37] LABS: ABS Eosinophils 0.2 10^3/ul (0-0.6); ABS Lymphocytes 1.1 10^3/ul (1.0-4.8); ABS Monocytes 0.7 10^3/ul (0-0.8); Eosinophil % 2.2 %; Lymphocyte % 13.5 %; Nucleated Red Blood Cells % 0.1
[2019-02-04 04:50] LABS: Anion Gap 5 mmol/L (2-11); BUN/Creatinine Ratio 44.2 (8-20); Blood Urea Nitrogen 50 mg/dL (6-24); CO2 Carbon Dioxide 21 mmol/L (22-32); Calcium 8.4 mg/dL (8.6-10.3); Chloride 108 mmol/L (101-111); EGFR African American 75.6 (>60); EGFR Non-African American 62.4 (>60); Glucose 137 mg/dL (70-100); Potassium 4.5 mmol/L (3.5-5.0); Sodium 134 mmol/L (135-145)
[2019-02-04 06:26] LABS: Troponin I 0.84 ng/mL (<0.04)
[2019-02-04 08:47] LABS: Troponin I 0.67 ng/mL (<0.04)
[2019-02-04] MEDS ORDERED: Aspirin EC TAB* 81 MG TAB.EC PO SCH (09:00)
[2019-02-04] MEDS ORDERED: fentaNYL* 50 MCG/ML 2 ML VIAL (100 MCG VIAL) ONE (13:11)
[2019-02-04] MEDS ORDERED: Midazolam* 1 MG/ML 10 ML VIAL (10 MG) ONE (13:12)
--- NOTE | 2019-02-04 13:56 | PN ---
Progress Note - Progress Note Date of Service: 02/04/19 Note: GI EGD with PUSH enteroscopy brief note Indication: anemia due to acute on chronic blood loss E: nml, 2cm hh, no gina erosions G:nml no blood. D: nml Prox Jej: nml No fresh or old blood on entire exam rec: tagged RBC, outpatient capsule if hgb remains stable. ? small bowel source. Emery Villalba DO 02/04/19 [id number]
--- NOTE | 2019-02-04 15:56 | PN ---
Subjective Date of Service: 02/04/19 Interval History: Evaluated in ICU room 7. Patient lying in bed with family at bedside. Patient reports he feels improved today after blood transfusions. He reports he no longer has shortness of breath with rest, but he reports if he were to get up and walk he would be short of breath. Reports he had chest pain prior to admission, but since coming to ED he has not experienced any chest pain. Patient denies noting dark stools prior to admission, but admits he was not paying attention to stool. Objective Active Medications: Amiodarone HCl (Cordarone Tab*) 200 mg PO QPM [facility] Last Admin: 02/04/19 01:38 Dose: Not Given Aspirin (Aspirin Ec Tab*) 81 mg PO DAILY [facility] Atorvastatin Calcium (Lipitor*) 40 mg PO QPM [facility] Last Admin: 02/03/19 17:42 Dose: 40 mg Pantoprazole Sodium (Protonix Iv Bag*) 80 mg in 250 mls @ 25 mls/hr IV Q10H [facility] Last Admin: 02/04/19 14:33 Dose: 25 mls/hr Sodium Chloride (Ns 0.9% 1000 Ml) 1,000 mls @ 100 mls/hr IV PER RATE [facility] Last Admin: 02/04/19 12:06 Dose: 100 mls/hr Vital Signs - 8 hr 02/04/19 08:00 Temperature 97.1 F Oxygen Devices in Use Now: None Appearance: Comfortable, NAD Eyes: No Scleral Icterus Ears/Nose/Mouth/Throat: Clear Oropharnyx, Mucous Membranes Moist Neck: NL Appearance and Movements; NL JVP Respiratory: Symmetrical Chest Expansion and Respiratory Effort, Clear to Auscultation Cardiovascular: NL Sounds; No Murmurs; No JVD, RRR, No Edema Abdominal: NL Sounds; No Tenderness; No Distention Lymphatic: No Cervical Adenopathy Extremities: No Clubbing, Cyanosis Skin: No Rash or Ulcers Neurological: Alert and Oriented x 3 Nutrition: - - NPO Result Diagrams: 02/04/19 16:50 02/04/19 04:20 Additional Lab and Data: Laboratory Results - last 24 hr 02/03/19 02/03/19 02/03/19 13:44 18:59 19:00 WBC RBC Hgb Hct MCV MCH MCHC RDW Plt Count MPV Neut % (Auto) Lymph % (Auto) [place] % (Auto) Eos % (Auto) Baso % (Auto) Absolute Neuts (auto) Absolute Lymphs (auto) Absolute Monos (auto) Absolute Eos (auto) Absolute Basos (auto) Absolute Nucleated RBC Nucleated RBC % Sodium Potassium Chloride Carbon Dioxide Anion Gap BUN Creatinine Est GFR ( Amer) Est GFR (Non-Af Amer) BUN/Creatinine Ratio Glucose Hemoglobin A1c 5.4 Calcium Troponin I 0.39 H* Urine Color Urine Appearance Urine pH Ur Specific [place] Urine Protein Urine Ketones Urine Blood Urine Nitrate Urine Bilirubin Urine Urobilinogen Ur Leukocyte Esterase Urine Glucose Urine Ascorbic Acid Blood Type A Positive Antibody Screen Negative Crossmatch See Detail 02/03/19 02/03/19 02/03/19 21:45 23:00 23:00 WBC RBC Hgb 8.3 L Hct 25 L MCV MCH MCHC RDW Plt Count MPV Neut % (Auto) Lymph % (Auto) [place] % (Auto) Eos % (Auto) Baso % (Auto) Absolute Neuts (auto) Absolute Lymphs (auto) Absolute Monos (auto) Absolute Eos (auto) Absolute Basos (auto) Absolute Nucleated RBC Nucleated RBC % Sodium Potassium Chloride Carbon Dioxide Anion Gap BUN Creatinine Est GFR ( Amer) Est GFR (Non-Af Amer) BUN/Creatinine Ratio Glucose Hemoglobin A1c Calcium Troponin I 0.88 H* Urine Color Yellow Urine Appearance Clear Urine pH 5.0 Ur Specific [place] 1.013 Urine Protein Negative Urine Ketones Negative Urine Blood Negative Urine Nitrate Negative Urine Bilirubin Negative Urine Urobilinogen Negative Ur Leukocyte Esterase Negative Urine Glucose Negative Urine Ascorbic Acid * A Blood Type Antibody Screen Crossmatch 02/04/19 02/04/19 02/04/19 04:20 04:20 08:00 WBC 8.0 RBC 2.80 L Hgb 8.0 L Hct 24 L MCV 84 MCH 29 MCHC 34 RDW 20 H Plt Count 195 MPV 7.2 L Neut % (Auto) 75.1 Lymph % (Auto) 13.5 [place] % (Auto) 9.0 Eos % (Auto) 2.2 Baso % (Auto) 0.2 Absolute Neuts (auto) 6.0 Absolute Lymphs (auto) 1.1 Absolute Monos (auto) 0.7 Absolute Eos (auto) 0.2 Absolute Basos (auto) 0.0 Absolute Nucleated RBC 0.0 Nucleated RBC % 0.1 Sodium 134 L Potassium 4.5 Chloride 108 Carbon Dioxide 21 L Anion Gap 5 BUN 50 H Creatinine 1.13 Est GFR ( Amer) 75.6 Est GFR (Non-Af Amer) 62.4 BUN/Creatinine Ratio 44.2 H Glucose 137 H Hemoglobin A1c Calcium 8.4 L Troponin I 0.84 H* 0.67 H* Urine Color Urine Appearance Urine pH Ur Specific [place] Urine Protein Urine Ketones Urine Blood Urine Nitrate Urine Bilirubin Urine Urobilinogen Ur Leukocyte Esterase Urine Glucose Urine Ascorbic Acid Blood Type Antibody Screen Crossmatch Microbiology and Other Data: Microbiology 02/03/19 16:35 Nasal Screen MRSA (PCR) - Final Nasal Mrsa Not Detected Assess/Plan/Problems-Billing Assessment: 79 yr old man with pmh of CAD, PAD, CHF, endocarditits, aortic valve replacement , DVT, Afib, CKD, mitrail insuff, tricuspid insuff, pulm htn, gi bleed; who presented to ED with chest pain and was found to be several anemic - Patient Problems (1) GI bleed Comment: - Suspected small bowel - EGD today with GI (2) Chest pain Comment: - Patient has been chest pain free since presented to the Emergency Department - Currently chest pain free (3) Elevated troponin Comment: - Elevated troponin on admission. - Trending and peaked 0.88 and trended down - EKG last evening revealed diffuse ST depression. Repeat EKG this morning is mildly improved - Cont tele - Cardiology consulting (4) Anemia Comment: - 6.7/20 on admission - Received 2 units PRBC and repeat H&H 8.0/24 - EGD today with GI. - Cont to monitor H&H (5) A-fib Comment: - Xarelto held and Cardiology agrees - Cardiology recommends unfractionated heparin, but since he is on the monitor and in sinus they recommend holding AC all together - Cont Amio (6) Aortic stenosis Comment: - Mod-severe - Will be referred back to Dr Martinez when stable (7) CAD (coronary artery disease) Comment: - ASA held given GI bleed per cardiology recommendation - Cont statin - Restart BB since pressures have improved (8) Hyperglycemia Comment: - Elevated glucose in ED - Hemaglobin A1c 5.4 (9) CKD (chronic kidney disease) Comment: - Cr wnl - Actually below patient's baseline (10) Chronic diastolic heart failure Comment: - Home diuretics initially held given hypotension - Consider resuming tomorrow if BP's stable (11) DVT prophylaxis Comment: - SCDs given GI bleed (12) Full code status Attending: Monica Ya
--- NOTE | 2019-02-04 16:34 | PRO ---
CC: Matthias Welch MD; Dr. Monique Johnson * EGD AND PUSH ENTEROSCOPY REPORT: DATE OF PROCEDURE: 02/04/19 INDICATION FOR PROCEDURE: Anemia due to chronic blood loss. PROCEDURE PERFORMED: Complete esophagogastroduodenoscopy with push enteroscopy to the proximal jejunum. MEDICATIONS GIVEN: Include 10 mg IV midazolam. DESCRIPTION OF PROCEDURE: After the EGD procedure and push enteroscopy procedure including the risks, benefits, and alternatives with the risks not limited to perforation, surgery, missed lesions, and/or were explained to the patient, written informed consent was obtained, IV medication was given, and a bite-block was placed between the teeth. The adult Olympus gastroscope was then inserted into the patient's mouth, into the oropharynx, into the tubular esophagus. The tubular esophagus was normal in appearance. The scope was advanced to the lower esophageal sphincter into the stomach, both antegrade and retrograde views. No active bleeding was seen. No lesions were visualized. There were no AVMs visualized. The scope was then advanced into the duodenum to the bulb, C-loop, and distal duodenum. No arterial or venous malformations were identified. I then pushed as deep as I could with the pediatric colonoscope into likely the proximal jejunum and no fresh or old blood was visualized and no AVMs were visualized. The scope was then removed from the patient. He tolerated the procedure well. He then returned to the recovery room in stable condition. He then remained in the ICU in stable condition. IMPRESSION: 1. Complete esophagogastroduodenoscopy with push enteroscopy to proximal jejunum. 2. Normal exam. No fresh or old blood. 3. No AVMs or source of anemia identified. RECOMMENDATIONS: Given the repeated nature of his melena and demand based ischemia, we will plan on getting a tagged RBC scan today. I discussed the procedure with both the patient and the before if we did not find anything today that would be the next recommendation given that he had anesthesia today, we will obtain consent from the for the tagged RBC scan. [id number]/[facility] #: [id number] S[place]AIMAN
[2019-02-04 17:00] LABS: Hematocrit 24 % (42-52); Hemoglobin 8.1 g/dL (14.0-18.0)
[2019-02-04] MEDS: Atorvastatin* 40 MG TAB PO SCH (20:04)
[2019-02-04 20:13] LABS: Hematocrit 22 % (42-52); Hemoglobin 7.4 g/dL (14.0-18.0)
[2019-02-05] MEDS: Pantoprazole* 80 mg IN NS 80 MG/250 ML BAG IV SCH ×3 (00:42→23:24)
[2019-02-05 05:08] LABS: ABS Basophils 0.1 10^3/ul (0-0.2); ABS Eosinophils 0.3 10^3/ul (0-0.6); ABS Lymphocytes 0.8 10^3/ul (1.0-4.8); ABS Monocytes 0.7 10^3/ul (0-0.8); ABS Neutrophils 5.3 10^3/ul (1.5-7.7); Eosinophil % 3.6 %; Hematocrit 26 % (42-52); Hemoglobin 8.9 g/dL (14.0-18.0); Lymphocyte % 11.7 %; Mean Corpuscular HGB Conc 34 g/dL (31-36); Mean Corpuscular Hemoglobin 29 pg (27-31); Mean Corpuscular Volume 85 fL (80-94); Mean Platelet Volume 7.1 fL (7.4-10.4); Platelet Count 177 10^3/uL (150-450); Red Blood Count 3.07 10^6 /uL (4.18-5.48); Red Cell Distribution Width 19 % (10-15); White Blood Count 7.2 10^3/uL (3.5-10.8)
[2019-02-05 05:23] LABS: BUN/Creatinine Ratio 35.8 (8-20); Calcium 8.5 mg/dL (8.6-10.3); EGFR African American 110.9 (>60); EGFR Non-African American 91.7 (>60); Potassium 4.3 mmol/L (3.5-5.0)
[2019-02-05] MEDS: Metoprolol Succinate XL TAB* 25 MG PO SCH (08:49)
[2019-02-05] MEDS: NS 0.9% 1000 ML** 1,000 ML IV SCH ×2 (08:52→20:22)
--- NOTE | 2019-02-05 09:24 | PN ---
Subjective Date of Service: 02/05/19 Interval History: Resting in recliner eating breakfast. Denies shortness of breath with rest, but reports he did have a little shortness of breath with exertion. Denies abd pain and nausea. Reports large loose stool last night that was "dark". Denies cp, palpitations, dizziness, weakness, fever, chills. Per nursing documentation patient received 1 unit PRBC last evening due to decrease in H&H. Objective Active Medications: Amiodarone HCl (Cordarone Tab*) 200 mg PO QPM [facility] Last Admin: 02/04/19 20:04 Dose: 200 mg Atorvastatin Calcium (Lipitor*) 40 mg PO QPM [facility] Last Admin: 02/04/19 20:04 Dose: 40 mg Pantoprazole Sodium (Protonix Iv Bag*) 80 mg in 250 mls @ 25 mls/hr IV Q10H [facility] Last Admin: 02/05/19 00:42 Dose: 25 mls/hr Sodium Chloride (Ns 0.9% 1000 Ml) 1,000 mls @ 100 mls/hr IV PER RATE [facility] Last Admin: 02/05/19 08:52 Dose: 100 mls/hr Metoprolol Succinate (Toprol Xl Tab*) 25 mg PO DAILY [facility] Last Admin: 02/05/19 08:49 Dose: 25 mg Vital Signs - 8 hr 02/05/19 02/05/19 02/05/19 01:31 02:00 02:31 Temperature Pulse Rate 61 63 72 Respiratory 16 18 18 Rate Blood Pressure 114/45 117/50 133/52 (mmHg) O2 Sat by Pulse 96 97 98 Oximetry 02/05/19 02/05/19 02/05/19 03:00 03:30 03:35 Temperature 97.8 F Pulse Rate 66 67 Respiratory 17 16 Rate Blood Pressure 111/49 (mmHg) O2 Sat by Pulse 95 93 Oximetry 02/05/19 02/05/19 02/05/19 04:00 04:30 05:00 Temperature Pulse Rate 65 64 69 Respiratory 14 15 19 Rate Blood Pressure 100/44 99/46 109/50 (mmHg) O2 Sat by Pulse 93 93 93 Oximetry 02/05/19 02/05/19 05:30 06:00 Temperature Pulse Rate 67 65 Respiratory 18 17 Rate Blood Pressure 112/47 114/57 (mmHg) O2 Sat by Pulse 94 94 Oximetry Oxygen Devices in Use Now: None Appearance: Comfortable, NAD Eyes: No Scleral Icterus, PERRLA, - - Inner eye lid slightly pale Ears/Nose/Mouth/Throat: Clear Oropharnyx, Mucous Membranes Moist Neck: NL Appearance and Movements; NL JVP Respiratory: Symmetrical Chest Expansion and Respiratory Effort, Clear to Auscultation Cardiovascular: NL Sounds; No Murmurs; No JVD, RRR, No Edema Abdominal: NL Sounds; No Tenderness; No Distention Lymphatic: No Cervical Adenopathy Extremities: No Edema, No Clubbing, Cyanosis Skin: No Rash or Ulcers Neurological: Alert and Oriented x 3 Nutrition: Taking PO's Result Diagrams: 02/05/19 14:45 02/05/19 14:45 Additional Lab and Data: Laboratory Results - last 24 hr 02/03/19 02/04/19 02/04/19 13:44 16:50 20:05 WBC RBC Hgb 8.1 L 7.4 L Hct 24 L 22 L MCV MCH MCHC RDW Plt Count MPV Neut % (Auto) Lymph % (Auto) [place] % (Auto) Eos % (Auto) Baso % (Auto) Absolute Neuts (auto) Absolute Lymphs (auto) Absolute Monos (auto) Absolute Eos (auto) Absolute Basos (auto) Absolute Nucleated RBC Nucleated RBC % Sodium Potassium Chloride Carbon Dioxide Anion Gap BUN Creatinine Est GFR ( Amer) Est GFR (Non-Af Amer) BUN/Creatinine Ratio Glucose Calcium Blood Type A Positive Antibody Screen Negative Crossmatch See Detail 02/05/19 02/05/19 04:55 04:55 WBC 7.2 RBC 3.07 L Hgb 8.9 L Hct 26 L MCV 85 MCH 29 MCHC 34 RDW 19 H Plt Count 177 MPV 7.1 L Neut % (Auto) 73.9 Lymph % (Auto) 11.7 [place] % (Auto) 9.7 Eos % (Auto) 3.6 Baso % (Auto) 1.1 Absolute Neuts (auto) 5.3 Absolute Lymphs (auto) 0.8 L Absolute Monos (auto) 0.7 Absolute Eos (auto) 0.3 Absolute Basos (auto) 0.1 Absolute Nucleated RBC 0.0 Nucleated RBC % 0.0 Sodium 134 L Potassium 4.3 Chloride 110 Carbon Dioxide 19 L Anion Gap 5 BUN 29 H Creatinine 0.81 Est GFR ( Amer) 110.9 Est GFR (Non-Af Amer) 91.7 BUN/Creatinine Ratio 35.8 H Glucose 129 H Calcium 8.5 L Blood Type Antibody Screen Crossmatch Microbiology and Other Data: Microbiology 02/03/19 16:35 Nasal Screen MRSA (PCR) - Final Nasal Mrsa Not Detected Assess/Plan/Problems-Billing Assessment: 79 yr old man with pmh of CAD, PAD, CHF, endocarditits, aortic valve replacement , DVT, Afib, CKD, mitrail insuff, tricuspid insuff, pulm htn, gi bleed; who presented to ED with chest pain and was found to be several anemic - Patient Problems (1) GI bleed Comment: - Tagged red blood cell study revealed radionudide in the transerve colon however the exact location and source of bleeding unclear - Suspected small bowel - EGD yesterday which was unremarkable (2) Chest pain Comment: - Patient has been chest pain free since presented to the Emergency Department - Currently chest pain free (3) Elevated troponin Comment: - Elevated troponin on admission. - Trending and peaked 0.88 and trended down - EKG last evening revealed diffuse ST depression. Repeat EKG this morning is mildly improved - Cont tele - Cardiology consulting (4) Anemia Comment: - .02/13 on admission - Received total of 3 units PRBC during this admission - Cont to monitor H&H (5) A-fib Comment: - Xarelto held and Cardiology agrees - Cardiology recommends unfractionated heparin, but since he is on the monitor and in sinus they recommend holding AC all together - Cont Amio (6) Aortic stenosis Comment: - Mod-severe - Will be referred back to Dr Martinez when stable (7) CAD (coronary artery disease) Comment: - ASA held given GI bleed per cardiology recommendation - Cont statin - Restart BB since pressures have improved (8) Hyperglycemia Comment: - Elevated glucose in ED - Hemaglobin A1c 5.4 (9) CKD (chronic kidney disease) Comment: - Cr wnl - Actually below patient's baseline (10) Chronic diastolic heart failure Comment: - Home diuretics initially held given hypotension - Home regime is Lasix 80 mg PO Qam and 40 mg PO Qpm - Will start lower dose tomorrow given improved blood pressure and to avoid hypervolemia (11) DVT prophylaxis Comment: - SCDs given GI bleed (12) Full code status Attending: Monica Ya
[2019-02-05 14:58] LABS: ABS Eosinophils 0.2 10^3/ul (0-0.6); ABS Monocytes 0.8 10^3/ul (0-0.8); ABS Neutrophils 4.8 10^3/ul (1.5-7.7); Eosinophil % 3.5 %; Hematocrit 26 % (42-52); Hemoglobin 9.1 g/dL (14.0-18.0); Lymphocyte % 14.4 %; Mean Corpuscular HGB Conc 35 g/dL (31-36); Mean Corpuscular Hemoglobin 30 pg (27-31); Mean Corpuscular Volume 85 fL (80-94); Mean Platelet Volume 7.1 fL (7.4-10.4); Platelet Count 177 10^3/uL (150-450); Red Blood Count 3.07 10^6 /uL (4.18-5.48); Red Cell Distribution Width 20 % (10-15); White Blood Count 6.8 10^3/uL (3.5-10.8)
[2019-02-05 15:15] LABS: BUN/Creatinine Ratio 23.4 (8-20); Calcium 8.4 mg/dL (8.6-10.3); EGFR African American 93.4 (>60); EGFR Non-African American 77.2 (>60); Potassium 4.4 mmol/L (3.5-5.0)
[2019-02-05] MEDS: Atorvastatin* 40 MG TAB PO SCH (20:22)
[2019-02-05] MEDS: Amiodarone TAB* 200 MG PO SCH (20:22)
[2019-02-06] MEDS ORDERED: NS 0.9% 1000 ML** 1,000 ML IV SCH (08:14)
[2019-02-06 08:19] LABS: BUN/Creatinine Ratio 20.2 (8-20); Calcium 8.4 mg/dL (8.6-10.3); EGFR African American 106.4 (>60); EGFR Non-African American 87.9 (>60); Magnesium 1.6 mg/dL (1.9-2.7); Potassium 4.3 mmol/L (3.5-5.0)
[2019-02-06 08:20] LABS: ABS Basophils 0.1 10^3/ul (0-0.2); ABS Eosinophils 0.2 10^3/ul (0-0.6); ABS Lymphocytes 0.8 10^3/ul (1.0-4.8); ABS Monocytes 0.7 10^3/ul (0-0.8); ABS Neutrophils 4.6 10^3/ul (1.5-7.7); Eosinophil % 3.7 %; Hematocrit 25 % (42-52); Hemoglobin 8.3 g/dL (14.0-18.0); Mean Corpuscular HGB Conc 34 g/dL (31-36); Mean Corpuscular Hemoglobin 29 pg (27-31); Mean Corpuscular Volume 86 fL (80-94); Mean Platelet Volume 7.3 fL (7.4-10.4); Nucleated Red Blood Cells % 0.1; Platelet Count 175 10^3/uL (150-450); Red Blood Count 2.86 10^6 /uL (4.18-5.48); Red Cell Distribution Width 20 % (10-15); White Blood Count 6.3 10^3/uL (3.5-10.8)
[2019-02-06] MEDS: Furosemide TAB* 40 MG PO SCH (08:48)
[2019-02-06] MEDS: Metoprolol Succinate XL TAB* 25 MG PO SCH (08:48)
[2019-02-06] MEDS: Pantoprazole* 80 mg IN NS 80 MG/250 ML BAG IV SCH ×2 (10:15→14:23)
--- NOTE | 2019-02-06 11:37 | PN ---
Subjective Date of Service: 02/06/19 Interval History: Mr. Castlelon is feeling fine this morning. He is sitting up in a chair and offers no complaints. Continues to have dark BMs, but no eleni blood per rectum. He admits to SOB, but says this is his baseline secondary to aortic stenosis. He is concerned about these recent GI bleeds as he needs to have his valve replaced and is concerned this will delay things. Denies CP, N/V. No concerns from nursing. Family History: Unchanged from Admission Social History: Unchanged from Admission Past Medical History: Unchanged from Admission Objective Active Medications: Amiodarone HCl (Cordarone Tab*) 200 mg PO QPM DANIEL Atorvastatin Calcium (Lipitor*) 40 mg PO QPM DANIEL Furosemide (Lasix Tab*) 40 mg PO DAILY DANIEL Pantoprazole Sodium (Protonix Iv Bag*) 80 mg in 250 mls @ 25 mls/hr IV Q10H DANIEL Sodium Chloride (Ns 0.9% 1000 Ml) 1,000 mls @ 75 mls/hr IV PER RATE DANIEL Metoprolol Succinate (Toprol Xl Tab*) 25 mg PO DAILY DANIEL Vital Signs - 8 hr 02/06/19 02/06/19 02/06/19 04:00 05:00 05:01 Temperature 99.1 F Pulse Rate 65 63 67 Respiratory 20 15 16 Rate Blood Pressure 141/56 130/69 (mmHg) O2 Sat by Pulse 97 98 98 Oximetry 02/06/19 02/06/19 02/06/19 06:00 07:00 07:01 Temperature Pulse Rate 66 65 Respiratory 21 20 18 Rate Blood Pressure 131/50 (mmHg) O2 Sat by Pulse 94 93 Oximetry 02/06/19 02/06/19 02/06/19 08:00 08:01 09:00 Temperature 98.9 F Pulse Rate 62 65 68 Respiratory 18 24 20 Rate Blood Pressure 129/51 159/56 (mmHg) O2 Sat by Pulse 95 94 95 Oximetry 02/06/19 02/06/19 10:00 10:50 Temperature 97.9 F Pulse Rate 64 62 Respiratory 19 16 Rate Blood Pressure 131/58 129/45 (mmHg) O2 Sat by Pulse 95 97 Oximetry Oxygen Devices in Use Now: None Appearance: Elderly male sitting in chair in NAD Eyes: No Scleral Icterus Ears/Nose/Mouth/Throat: Mucous Membranes Moist Neck: NL Appearance and Movements; NL JVP, Trachea Midline Respiratory: Symmetrical Chest Expansion and Respiratory Effort, Clear to Auscultation Cardiovascular: NL Sounds; No Murmurs; No JVD, RRR Abdominal: NL Sounds; No Tenderness; No Distention Extremities: No Edema Neurological: Alert and Oriented x 3 Lines/Tubes/Other Access: Clean, Dry and Intact Peripheral IV Nutrition: Taking PO's Result Diagrams: 02/06/19 07:35 02/06/19 07:35 Assess/Plan/Problems-Billing Assessment: Mr. Castellon is an 79 yo M with PMH of CAD and ND with OTONIEL to the LAD, PAD, CHF, endocarditits, aortic valve replacement, DVT, afib, CKD stage 3, and recent GI bleed with hospitalization in [place]; who presented to ED with c/o chest pain and was found to be severely anemic. - Patient Problems (1) GI bleed Code(s): K92.2 - GASTROINTESTINAL HEMORRHAGE, UNSPECIFIED Comment: - Recent GI bleed in November 2018, hospitalized in [place] - Tagged red blood cell study revealed radionudide in the transerve colon however the exact location and source of bleeding unclear - EGD unremarkable - Suspect small bowel source - Holding aspirin and Xarelto (2) Anemia Code(s): D64.9 - ANEMIA, UNSPECIFIED Comment: - Secondary to acute blood loss - H&H 6.7/20 on admission - S/p 3 units PRBC during this admission, H&H 8.3/25 - Continue to trend H&H (3) Elevated troponin Code(s): R74.8 - ABNORMAL LEVELS OF OTHER SERUM ENZYMES Comment: - Peaked at 0.88 - EKG revealed diffuse ST depression and repeat EKG showed mild improved - Appreciate Cardiology consult; does not believe this represents ACS - Suspect demand ischemia r/t anemia and known aortic stenosis - Continue tele monitoring (4) Chest pain Code(s): R07.9 - CHEST PAIN, UNSPECIFIED Comment: - Present on admission, now resolved (5) Chronic diastolic heart failure Code(s): I50.32 - CHRONIC DIASTOLIC (CONGESTIVE) HEART FAILURE Comment: - Home diuretics initially held d/t hypotension - No evidence of exacerbation - Continue metoprolol, furosemide (decreased from home dose); resume lisinopril (6) A-fib Code(s): I48.91 - UNSPECIFIED ATRIAL FIBRILLATION Comment: - Has been in NSR on tele - Cardiology recommends holding all anticoagulation given he has been in NSR - Hold Xarelto in the setting of GI bleed - Continue amiodarone (7) CAD (coronary artery disease) Code(s): I25.10 - ATHSCL HEART DISEASE OF [place] CORONARY ARTERY W/O ANG PCTRS Comment: - S/p OTONIEL to the LAD in 2017 - No concern for ACS at this time - Hold aspirin in the setting of GI bleed - Continue metoprolol, atorvastatin (8) Aortic stenosis Code(s): I35.0 - NONRHEUMATIC AORTIC (VALVE) STENOSIS Comment: - Moderate to severe - Follows with Dr. Martinez in [place] (9) PAD (peripheral artery disease) Code(s): I73.9 - PERIPHERAL VASCULAR DISEASE, UNSPECIFIED Comment: - S/p left femoral endarterectomy and iliac stent in 2017 - Previously on Plavix, changed to aspirin during previous hospital d/c in [place] - Hold aspirin in the setting of GI bleed (10) CKD (chronic kidney disease) Code(s): N18.9 - CHRONIC KIDNEY DISEASE, UNSPECIFIED Comment: - Stage 3 - Creatinine at baseline (11) DVT prophylaxis Comment: - SCDs only in the setting of GI bleed and anemia (12) Full code status Code(s): Z78.9 - OTHER SPECIFIED HEALTH STATUS Comment: Status and Disposition: Inpatient. Transfer out of ICU. Anticipate d/c home when medically stable, timeframe unknown. Attending: Monica Ya
[2019-02-06] MEDS ORDERED: Magnesium Sulf 4 GM/100 ML IV* 4,000 MG/100 ML BAG IVPB ONE (12:05)
[2019-02-06] MEDS: Atorvastatin* 40 MG TAB PO SCH (17:51)
[2019-02-06] MEDS: Amiodarone TAB* 200 MG PO SCH (17:51)
[2019-02-06] MEDS ORDERED: Furosemide TAB* 40 MG PO ONE (18:04)
[2019-02-07] MEDS: Pantoprazole* 80 mg IN NS 80 MG/250 ML BAG IV SCH (02:00)
[2019-02-07 06:51] LABS: ABS Eosinophils 0.2 10^3/ul (0-0.6); ABS Lymphocytes 0.8 10^3/ul (1.0-4.8); ABS Monocytes 0.5 10^3/ul (0-0.8); Eosinophil % 4.4 %; Hematocrit 25 % (42-52); Hemoglobin 8.4 g/dL (14.0-18.0); Lymphocyte % 14.4 %; Mean Corpuscular HGB Conc 34 g/dL (31-36); Mean Corpuscular Hemoglobin 29 pg (27-31); Mean Corpuscular Volume 86 fL (80-94); Platelet Count 189 10^3/uL (150-450); Red Blood Count 2.88 10^6 /uL (4.18-5.48); Red Cell Distribution Width 21 % (10-15); White Blood Count 5.6 10^3/uL (3.5-10.8)
[2019-02-07 07:08] LABS: BUN/Creatinine Ratio 14.4 (8-20); EGFR African American 90.1 (>60); EGFR Non-African American 74.5 (>60); Magnesium 1.8 mg/dL (1.9-2.7); Potassium 3.7 mmol/L (3.5-5.0)
[2019-02-07] MEDS ORDERED: Magnesium Sulfate 2 GM IV* 2 GM/50 ML BAG IVPB ONE (08:54)
[2019-02-07] MEDS ORDERED: Magnesium Oxide TAB* 400 MG PO SCH (09:00)
[2019-02-07] MEDS ORDERED: Lisinopril TAB* 5 MG PO SCH (09:00)
[2019-02-07] MEDS: Furosemide TAB* 40 MG PO SCH (09:19)
[2019-02-07] MEDS: Metoprolol Succinate XL TAB* 25 MG PO SCH (09:20)
[2019-02-07] MEDS ORDERED: Metoprolol Succinate XL TAB* 25 MG PO ONE (10:44)
[2019-02-07 11:23] VITALS: BP 150/49
[2019-02-07] MEDS ORDERED: Polyethylene Glycol 3350* 17 GM PACKET PO PRN (11:57)
[2019-02-07] MEDS ORDERED: Pantoprazole TAB * 40 MG TAB PO SCH (21:00)
--- NOTE | 2019-02-07 23:03 | DS ---
CC: Dr. Matthias Welch; Dr. Elma Willingham * DISCHARGE SUMMARY: DATE OF ADMISSION: 02/03/19 DATE OF DISCHARGE: 02/07/19 PRIMARY CARE PROVIDER: Dr. Matthias Welch. BORING MACHINE OPERATOR PRODUCTION: Dr. Elma Willingham ATTENDING PROVIDER: Dr.K. Ya * (DICTATED BY TAMIKA MA NP) PRIMARY DIAGNOSES: 1. GI bleed. 2. Acute blood loss anemia. 3. Elevated troponin. 4. Kidney injury. SECONDARY DIAGNOSES: 1. Chronic diastolic congestive heart failure. 2. Atrial fibrillation. 3. Coronary artery disease. 4. Severe aortic stenosis. 5. Peripheral arterial disease. 6. Chronic kidney disease, stage 3. STUDIES WHITE IN THE HOSPITAL: 1. EKG, on 02/03/19 shows: Normal sinus rhythm at a rate of 75, QTc 515, right bundle branch block. Q waves in septal leads. 2. Chest x-ray on 02/03/19, reads as no active cardiopulmonary disease. 3. Transthoracic echocardiogram on 02/03/19 reads as: The left ventricular cavity size is normal. Wall thickness is mildly increased. Systolic function is normal. The estimated ejection fraction is 60% to 65%. Features are consistent with a pseudonormal left ventricular filling pattern consistent with concomitant abnormal relaxation and increased filling pressure (grade 2 diastolic dysfunction). The right ventricular systolic function is normal. There is moderate to severe mitral valve regurgitation. There is a bioprosthetic aortic valve. Valve mobility is restricted. These findings are consistent with moderate to severe stenosis. Systolic pressure in the pulmonary arteries cannot be accurately estimated. Compared to the prior echocardiogram on 12/14/18, ejection fraction is stable. Prior diastolic function estimated as restrictive. Mitral regurgitation is stable and the aortic valve function is stable. 4. EKG on 02/04/19 shows sinus bradycardia with a rate of 59, QTc 488, Q waves present in V1. 5. Tagged red blood cells study results: There is radionucleotide appearing in the transverse colon; however, the exact location and source of bleeding is unclear. PROCEDURES WHILE IN THE HOSPITAL: EGD on 02/03/[address] Villalba. HISTORY OF PRESENT ILLNESS AND HOSPITAL COURSE: Mr. Castellon is an 79-year-old male with past medical history of coronary artery disease, peripheral vascular disease, DVT, atrial fibrillation, diastolic congestive heart failure, and aortic stenosis who presented to the emergency room on 02/03/19 with complaints of chest pain. Please see the history and physical by Dr. Molina for complete summary of the events leading up to this hospitalization. In short, the patient had a recent hospitalization in November in [place] for a GI bleed. There was no clear source of bleeding found during the hospitalization. On discharge, the patient instructed to resume his anticoagulation with Xarelto and change from Plavix to aspirin. He was additionally admitted to this facility in November for a CHF exacerbation. On the day of admission, the patient was feeling poorly and reported some chest pain and diaphoresis and so presented to the emergency room out of concern. In the emergency room, he had imaging as noted above. He has blood work, which was remarkable for an H and H of 6.7 and 20 and elevated creatinine and they found troponin at 0.05. Because of his complicated medical history and symptoms, he was admitted by the hospitalist service. The patient's Xarelto and aspirin were held. He was started on a Protonix drip and Gastroenterology was consulted. Dr. Guerrero saw the patient on . At that point, advised that the patient should have an EGD though it would need cardiac clearance to do so because of a complicated history. The patient did receive 2 units of packed red blood cells. He was seen in consultation by Dr. Johnson from Cardiology also on 02/03/19 who at that point, did not feel that the patient was having an [place]. Because of the aortic stenosis already, he was noted to be a high risk patient. He has had some significant metabolic stress recently. Due to this anemia, it was felt as though this likely was inventory representative of demand ischemia. The patient underwent an EGD with Dr. Villalba on 02/04/19 and was noted to have a normal exam with no fresh or old blood noted. He did have a tagged red blood cell study, though the results of that were inconclusive. He did receive a total of 3 units of packed red blood cells during this hospitalization and as of today, the day of discharge, the patient's H and H is stable at 8.4 and 25. Acute kidney injury resolved. Troponins were noted to peak at 0.84, again suspect this is due to demand ischemia and his known aortic stenosis. The patient has continued to have some dark colored stool, though no eleni blood per rectum. Chest pain did resolve on the day of admission and did not recur. The etiology of the chest pain is not entirely clear though again was likely impacted by his anemia and aortic stenosis. Today the patient reports feeling well. He offers no complaints. PHYSICAL EXAMINATION: On exam, he has no focal neurological deficits. His heart has regular rate and rhythm without murmurs, rubs or gallop. Lungs are clear to auscultation without rhonchi, wheezes, or rales. There is no notable edema. Of note, the patient has been in normal sinus rhythm on telemetry throughout this hospital stay. Again, he has been off anticoagulation due to this active GI bleed. I did speak with Dr. Jamil from Gastroenterology this morning who advised that he felt as though it was safe for the patient to resume aspirin, though should remain off Xarelto at this point. Mr. Castellon is stable for discharge today. Vital signs are as follows: Temp 97.3, heart rate 67, respiratory rate 16, oxygen saturation 100% on room air, and blood pressure 150/49. DISCHARGE MEDICATIONS: New medications: 1. Docusate 100 mg p.o. daily. 2. Magnesium oxide 400 mg p.o. b.i.d. 3. MiraLAX 17 g p.o. daily p.r.n. constipation. Changed medications: 1. Pantoprazole 40 mg p.o. b.i.d. (previously was daily). Continued medications: 1. Amiodarone 100 mg p.o. daily. 2. Atorvastatin 40 mg p.o. daily. 3. Lisinopril 2.5 mg p.o. daily. 4. Metoprolol succinate 25 mg p.o. daily. 5. Aspirin 81 mg p.o. daily. 6. Cholecalciferol 1000 units p.o. daily. 7. Ferrous sulfate 325 mg p.o. daily. 8. Furosemide 80 mg p.o. in the morning. 9. Furosemide 40 mg p.o. in the evening. Discontinued medications: Xarelto. DISCHARGE PLAN: Mr. Castellon will be discharged to home. Activity will be as tolerated. Diet will be heart healthy. Medications as noted above. The patient's pantoprazole has been changed to b.i.d. from daily due to this known GI bleed with an unclear source. He additionally should take magnesium supplements as he was noted to have some mild hypomagnesemia here in the hospital. Regarding anticoagulation, the patient can resume his baby aspirin, which he has been off while here in the hospital. Again, I did discuss this with Dr. Jamil this morning, who felt as though it was reasonable to his home aspirin. At this point, he should remain off Xarelto and will note that the patient has a REJI-VASc Score of 5 points indicating stroke risk of 7.2% per year and HAS-BLED score of 4 points indicating an 8.9% risk of bleed per year. So, at this point, the risk of bleed outweighs the risk of stroke and I think it is reasonable to keep the patient off anticoagulation at this point. He will need to follow up with his wood inspector closely to determine if and when he can resume this. Also of note, the patient's med rec was incorrect when he came into the hospital. The patient previously had been on 200 mg of amiodarone daily, which he reports was recently decreased to 100 mg daily; however, that was not known and so the patient has been on 200 mg daily while here in the hospital, though as of now, at discharge he can resume his usual dose of 100 mg daily. I do not foresee this causing any major concerns. He can continue with other usual medications as noted above. Again, he will need to follow up closely with his wood inspector. He does have an appointment with his wood inspector from [place] on Friday and I have instructed him to speak with him at that point about anticoagulation. The patient is also to follow up with Dr. Willingham closely and will need to follow up with his PCP in the next 4 to 7 days. I have additionally ordered a CBC to be done in 3 days to ensure H and H is remaining stable, hence the patient is being restarted on aspirin. The results of that CBC will go to Dr. Welch and Dr. Willingham. The patient has been instructed to return to the emergency room or nearest hospital for any worsening symptoms, shortness of breath, lightheadedness, dizziness, chest discomfort, high fevers, chills, night sweats, loss of consciousness, or any other worrisome signs or symptoms. DISCHARGE CONDITION: Stable. DISCHARGE DISPOSITION: Home. This is a summarized report of a complex medical history and hospital stay. For further details, please see the entire medical record. TIME SPENT: Approximately 55 minutes was spent on this discharge. TAMIKA MA, EDWARD [id number]/[facility] #: [id number] [place]
[2019-02-08] MEDS ORDERED: Docusate CAP* 100 MG PO SCH (09:00)
== END 2019-02-07 15:50 | disposition home or self-care (01) | DRG 378 ==
LOC: ED 13:32 → ICU 15:35 → MEDTELE 02-06 10:33
PROVIDERS: ADMIT Internal Medicine; ATTEND Internal Medicine
PROC: 30233N1 Transfusion of Nonautologous Red Blood Cells into Peripheral Vein, Percutaneous Approach (ICD-10-PCS; 2019-02-03)
PROC: 0DJ08ZZ Inspection of Upper Intestinal Tract, Via Natural or Artificial Opening Endoscopic (ICD-10-PCS; principal; 2019-02-04)
DX: K92.1 Melena (principal); I50.32 Chronic diastolic (congestive) heart failure; N17.9 Acute kidney failure, unspecified; I13.0 Hypertensive heart and chronic kidney disease with heart failure and stage 1 through stage 4 chronic kidney disease, or unspecified chronic kidney disease; D62 Acute posthemorrhagic anemia; I08.3 Combined rheumatic disorders of mitral, aortic and tricuspid valves; I48.0 Paroxysmal atrial fibrillation; I73.9 Peripheral vascular disease, unspecified; N18.3 Chronic kidney disease, stage 3 (moderate); I45.10 Unspecified right bundle-branch block; I25.10 Atherosclerotic heart disease of native coronary artery without angina pectoris; R73.9 Hyperglycemia, unspecified; K92.2 Gastrointestinal hemorrhage, unspecified; I44.0 Atrioventricular block, first degree; E78.5 Hyperlipidemia, unspecified; R74.8 Abnormal levels of other serum enzymes; Z86.718 Personal history of other venous thrombosis and embolism; I25.2 Old myocardial infarction; Z95.5 Presence of coronary angioplasty implant and graft; Z95.2 Presence of prosthetic heart valve; Z79.01 Long term (current) use of anticoagulants; Z79.82 Long term (current) use of aspirin; Z79.899 Other long term (current) drug therapy; Z91.030 Bee allergy status; Z82.49 Family history of ischemic heart disease and other diseases of the circulatory system; Z83.3 Family history of diabetes mellitus; Z80.8 Family history of malignant neoplasm of other organs or systems; Z87.891 Personal history of nicotine dependence; Z87.442 Personal history of urinary calculi
CPT/HCPCS: 36415; 71045; 78278; 80048; 80053; 81003; 82550; 82553; 83010; 83036; 83615; 83735; 83880; 84443; 84484; 85014; 85018; 85025; 85379; 85610; 86850; 86880; 86900; 86901; 86922; 87641; 93005; 93306; 99156; 99285; A9270-GY; A9512; A9538; J2250; J3010; J3475; P9040

== ENCOUNTER 2019-02-10 12:39 | Emergency (ER) | payer MEDICARE, OTHER ==
--- NOTE | 2019-02-10 13:07 | ED ---
Syncope/Near Syncope - HPI Summary HPI Summary: This patient is an 79 year old M presenting to [facility] accompanied by with a chief complaint of near syncope occurring at approx. 12:30 this afternoon Pt was checking into the hospital to get his blood drawn. Pt reports feeling dizzy and like everything went dark. He did not hit the ground as someone grabbed him, and he does not think he LOC. Pt denies general pain, and CP. Pt has SOB on exertion. - History Of Current Complaint Chief Complaint: EDSyncope Time Seen by Provider: 02/10/19 12:56 Hx Obtained From: Patient Onset/Duration: Gradual Onset, Resolved Timing: Intermittent Episode Lasting Context: Witnessed Associated Signs And Symptoms: Negative - chest pain, Dizzy, Shortness Of Breath - Allergies/Home Medications Allergies/Adverse Reactions: Allergies Allergy/AdvReac Type Severity Reaction Status Date / Time bee venom protein (honey bee) Allergy Anaphylatic Verified 02/10/19 12:50 Shock PMH/Surg Hx/FS Hx/Imm Hx Endocrine/Hematology History: Reports: Hx Anticoagulant Therapy, Hx Anemia Denies: Hx Diabetes Cardiovascular History: Reports: Hx Congestive Heart Failure, Hx Coronary Artery Disease, Hx Deep Vein Thrombosis, Hx Hypercholesterolemia, Hx Hypertension, Hx Myocardial Infarction, Hx Peripheral Vascular Disease, Other Cardiovascular Problems/Disorders - aortic v. replacement Denies: Hx Pacemaker/ICD GI History: Reports: Hx Gastrointestinal Bleed Denies: Hx Cirrhosis, Hx Gastroesophageal Reflux Disease History: Denies: Hx Renal Disease Musculoskeletal History: Reports: Other Musculoskeletal History - osteo- arthritis Sensory History: Reports: Hx Contacts or Glasses, Hx Eye Prosthesis - left Denies: Hx Glaucoma, Hx Legally Blind, Hx Hearing Aid Opthamlomology History: Reports: Hx Contacts or Glasses, Hx Eye Prosthesis - left Denies: Hx Glaucoma, Hx Legally Blind Psychiatric History: Denies: Hx Panic Disorder - Cancer History Cancer Type, Location and Year: BLADDER CA Hx Chemotherapy: No Hx Radiation Therapy: No - Surgical History Surgery Procedure, Year, and Place: ARTIFICIAL HEART VALVE - [place]. APPENDECTOMY. BILAT INGUINAL HERNIA REPAIRS. LEFT FEMORAL ENDARTERECTOMY W/ VASCULAR XENOSURE PATCH ( NO METAL) and iliac stent-(GORE -VBX STENT - CONDITIONAL FOR MRI) 05/2017 ( [facility]). CARDIAC STENTS. ARTIFICIAL EYE - Lt. PICC-Rt ARM Infectious Disease History: No Infectious Disease History: Denies: Traveled Outside the [place] in Last 30 Days - Family History Known Family History: Positive: Cardiac Disease - Social History Occupation: Retired Alcohol Use: Weekly Hx Substance Use: No Substance Use Type: Reports: None Hx Tobacco Use: Yes Smoking Status (MU): Former Smoker Review of Systems Negative: Chest Pain Positive: Shortness Of Breath Neurological: Other - near syncope, dizzy All Other Systems Reviewed And Are Negative: Yes Physical Exam - Summary Physical Exam Summary: Appearance: Well-appearing, Well-nourished, lying in bed comfortably Skin: Warm, dry, no obvious rash Eyes: sclera anicteric, no conjunctival pallor ENT: mucous membranes moist, pharynx appears normal Neck: Supple, nontender Respiratory: Clear to auscultation, no signs of respiratory distress Cardiovascular: Normal S1, S2. No murmurs. Normal distal pulses in tibial and radial bilaterally. Abdomen: Soft, nontender, normal active bowel sounds present Musculoskeletal: Normal, Strength/ROM Intact Neurological: A&Ox3, awake and alert, mentation is normal, speech is fluent and appropriate Psychiatric: affect is normal, does not appear anxious or depressed Triage Information Reviewed: Yes Vital Signs On Initial Exam: Initial Vitals Temp Pulse Resp BP Pulse Ox 98.5 F 64 19 147/61 96 02/10/19 12:47 02/10/19 12:47 02/10/19 12:47 02/10/19 12:47 02/10/19 12:47 Vital Signs Reviewed: Yes Diagnostics - Vital Signs Vital Signs Temp Pulse Resp BP Pulse Ox 02/10/19 12:47 98.5 F 64 19 147/61 96 - Laboratory Result Diagrams: 02/10/19 13:22 02/10/19 13:22 Lab Statement: Any lab studies that have been ordered have been reviewed, and results considered in the medical decision making process. - EKG 1319 Summary of EKG Findings: An EKG at reveals sinus or ectopic atrial rhythm at 60 BPM, no STEMI. Re-Evaluation - Re-Evaluation First Eval Re-Evaluation Time: 15:10 Comment: Discussed results and plan of care with pt. Course/Dx Course Of Treatment: This patient is an 79 year old M presenting to [facility] accompanied by with a chief complaint of near syncope occurring at approx. 12:30 this afternoon Pt was checking into the hospital to get his blood drawn. Pt reports feeling dizzy and like everything went dark. He did not hit the ground as someone grabbed him, and he does not think he LOC. Pt denies general pain, and CP. Pt has SOB on exertion. Physical Exam Findings are nml. Blood work obtained. RBC is 3.07, Hgb is 8.7, Hct is 26, RDW is 20, MPV is 6.7, Sodium is 134, Glucose is 112, Troponin I is 0.06, Total Protein is 6.3. An EKG at reveals sinus or ectopic atrial rhythm at 60 BPM, no STEMI. Patient will be discharged with a follow up from PCP. The patient is agreeable with this plan. - Diagnoses Provider Diagnoses: Near syncope Discharge - Discharge Plan Condition: Good Disposition: HOME Patient Education Materials: Near Syncope (ED) Referrals: Matthias Welch MD [Primary Care Provider] - (as scheduled) - Attestation Statements Document Initiated by Scribe: Yes Documenting Scribe: Zenaida Kendrick Provider For Whom Martine is Documenting (Include Credential): Dr. Raymond Shields MD Scribe Attestation: Zenaida Liu, scribed for Dr. Raymond Shields MD on 02/10/19 at 1542. Status of Scribe Document: Ready
[2019-02-10 13:43] LABS: ABS Basophils 0.1 10^3/ul (0-0.2); ABS Eosinophils 0.3 10^3/ul (0-0.6); ABS Lymphocytes 0.9 10^3/ul (1.0-4.8); ABS Monocytes 0.7 10^3/ul (0-0.8); ABS Neutrophils 3.9 10^3/ul (1.5-7.7); Eosinophil % 4.5 %; Hematocrit 26 % (42-52); Hemoglobin 8.7 g/dL (14.0-18.0); Lymphocyte % 14.8 %; Mean Corpuscular HGB Conc 34 g/dL (31-36); Mean Corpuscular Hemoglobin 28 pg (27-31); Mean Corpuscular Volume 84 fL (80-94); Mean Platelet Volume 6.7 fL (7.4-10.4); Nucleated Red Blood Cells % 0.1; Platelet Count 285 10^3/uL (150-450); Red Blood Count 3.07 10^6 /uL (4.18-5.48); Red Cell Distribution Width 20 % (10-15); White Blood Count 5.8 10^3/uL (3.5-10.8)
[2019-02-10 13:52] LABS: Troponin I 0.06 ng/mL (<0.04)
[2019-02-10 13:53] LABS: Albumin 3.4 g/dL (3.2-5.2); Albumin/Globulin Ratio 1.2 (1-3); BUN/Creatinine Ratio 14.5 (8-20); Calcium 8.9 mg/dL (8.6-10.3); EGFR African American 72.6 (>60); Globulin 2.9 g/dL (2-4); Potassium 4.8 mmol/L (3.5-5.0); Total Bilirubin 0.8 mg/dL (0.2-1.0); Total Protein 6.3 g/dL (6.4-8.9)
[2019-02-10 15:39] VITALS: BP 141/54
== END 2019-02-10 15:38 | disposition home or self-care (01) ==
LOC: ED 12:39
DX: R55 Syncope and collapse (principal); R06.02 Shortness of breath; I25.10 Atherosclerotic heart disease of native coronary artery without angina pectoris; I11.0 Hypertensive heart disease with heart failure; Z79.01 Long term (current) use of anticoagulants; Z95.2 Presence of prosthetic heart valve; Z95.5 Presence of coronary angioplasty implant and graft; Z91.030 Bee allergy status; Z87.891 Personal history of nicotine dependence
CPT/HCPCS: 36415; 80053; 83605; 84484; 85025; 93005; 99283